=== PATIENT | female | born 2000 | race Caucasian/White ===

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

== ENCOUNTER 2021-08-28 11:57 | Emergency (ER) | payer MEDICAID, SELFPAY ==
[2021-08-28 11:58] VITALS: BP 93/46; PULSE 94; RESP 16; TEMP 36.5; O2SAT 97
--- NOTE | 2021-08-28 12:13 | EX.ED.DYSGE1 ---
HPI History of Present Illness Chief Complaint: General Illness Detail of Chief Complaint: Not feeling well x2 days Informant: patient Narrative Narrative: Patient presents to the emergency department with complaint of not feeling well for the last 2 days. Patient states she has not been able to eat for the last 2 days. Patient states she had one episode of vomiting today and 1 episode of diarrhea. She denies any blood in her stool or black tarry stool. Patient states that her boyfriend is also sick and has a similar illness. She denies any fever or cough or sore throat. Patient is on control and does not think she is . Patient denies abdominal pain. She denies urinary symptoms. Prior similar symptoms: No PFSH [facility] Medical History (Updated 08/28/21 @ 15:[address] Froilan Varner DO) Depression Seizure Home Medications cholecalciferol (vitamin D3) [Vitamin D] 2,000 unit PO DAILY 10/16/14 [History Last Taken Unknown] clobazam [Onfi] 15 mg PO BREAKFAST 10/24/16 [History Last Taken Unknown] lacosamide [Vimpat] 200 mg PO BID 10/24/16 [History Last Taken Unknown] magnesium oxide 250 mg PO BID 10/24/16 [History Last Taken Unknown] folic acid 1 mg PO DAILY 02/28/17 [History Last Taken Unknown] levetiracetam 1,500 mg PO BID 02/28/17 [History Last Taken Unknown] zonisamide 200 mg PO DAILY 02/28/17 [History Last Taken Unknown] clonazepam 0.5 mg PO PRN PRN #5 tab.rapdis 09/01/20 [Rx Last Taken Unknown] clobazam 20 mg PO QHS 08/28/21 [History Last Taken Unknown] ondansetron 4 mg PO Q8H PRN PRN #10 tab 08/28/21 [Rx Last Taken Unknown] pyridoxine (vitamin B6) 250 mg PO DAILY 08/28/21 [History Last Taken Unknown] triamcinolone acetonide [Kenalog] 1 applic TOPICAL BID PRN 08/28/21 [History Last Taken Unknown] zonisamide 300 mg PO QHS 08/28/21 [History Last Taken Unknown] Allergy/AdvReac Type Severity Reaction Status Date / Time divalproex sodium Allergy Other Verified 08/28/21 12:03 [facility] Social History Smoking Status: Never smoker ROS ROS ED Constitutional Constitutional ED: Reports systems reviewed and no addt'l complaints, except as documented; Denies body ache(s), change in weight or chills Eyes Eyes: Denies acute decrease in peripheral vision, change in vision, double vision or loss of vision ENT ENT ED: Reports none; Denies ear pain, lip swelling, loss taste/smell, neck pain, otalgia or sore throat Cardiovascular Cardiovascular: Reports none; Denies abdominal pain, chest pain with activity, leg edema, lightheadedness, palpitations, rapid heart rate or syncope Respiratory/Chest Respiratory/Chest: Reports none; Denies change in mental status, dry cough, dyspnea, hemoptysis, shortness of breath at rest or shortness of breath with exertion Gastrointestinal Gastrointestinal: Reports none, diarrhea, nausea and vomiting; Denies abdominal pain, change in stool character, hematemesis, hematochezia, melena or rectal bleeding Genitourinary Genitourinary ED: Reports none; Denies abdominal discomfort, anuria, dysuria, genital pain or polyuria Musculoskeletal Musculoskeletal: Reports none; Denies arthralgias, back pain, difficulty walking, extremity pain, muscle weakness or myalgias Integumentary Reports none; Denies abscess or rash Neurologic Neurologic: Reports none; Denies abnormal gait, confusion, focal weakness, frequent falls, headache(s), loss of vision, numbness, paresthesias, radicular pain, vertigo or weakness Psychiatric Psychiatric: Reports systems reviewed and no addt'l complaints, except as documented and none; Denies behavioral changes, confusion, difficulty concentrating, hallucinations, suicidal ideation, tactile hallucinations or visual hallucinations Endocrine Endocrinology: Denies none, cold intolerance, excessive sweating, fatigue or heat intolerance Hematologic/Lymphatic Hematologic/Lymphatic: Reports none; Denies anemia, easy bleeding or easy bruising Allergic/Immunologic Allergic/Immunologic ED: Denies as per HPI, none, lip swelling, mouth swelling, throat swelling, tongue swelling or hives EXAM Physical Exam Const Vital Signs: 08/28/21 11:58 08/28/21 12:15 08/28/21 14:23 Temperature 97.7 F L Temperature Source Oral Pulse Rate 94 84 Respiratory Rate 16 16 Respiratory Effort Normal Non-Labored Respiratory Pattern Normal Blood Pressure 93/46 L Blood Pressure Mean 61 Pulse Ox 97 97 Oxygen Delivery Method Room Air Room Air Positive well nourished and well developed General Appearance ED: well developed and NAD HEENT Reports TM's clear and moist mucous membranes normocephalic and atraumatic; Negative for trauma or tenderness Tympanic Membrane ED: Yes TM's clear Eyes PERRL and EOMs intact bilaterally General Eye ED: Negative for pale conjunctiva or scleral icterus Neck no lymphadenopathy, supple and no JVD General: Negative for tenderness Chest Wall inspection of chest normal and palpation of chest normal Chest: Negative for tenderness Resp normal respiratory effort and clear to auscultation bilaterally Effort and Inspection: Negative for respiratory distress or pain with movement Auscultation: Negative for rhonchi, wheezes or diminished lung sounds Cardio regular rate, regular rhythm, S1 normal heart sound, S2 normal heart sound and no murmurs Peripheral Pulses: pulses 2+ throughout GI normal to inspection, nondistended, normoactive bowel sounds, soft to palpation, non-tender, non-distended and no masses Back/Spine no CVA tenderness and no thoracic nor lumbar tenderness Extremity normal to inspection General Extremety ED: Negative for edema General Extremity: Negative for edema Neuro oriented x3, CN's II-XII intact bilaterally, no sensory deficits noted and gait normal Sensorium / Orientation: awake, alert, oriented to person, oriented to place and oriented to time Motor Exam: strength 5/5 throughout and strength abnormal Psych mental status grossly normal Skin no rashes or lesions noted and no wounds MDM MDM MDM Narrative Medical decision making narrative: IV line established on arrival. Patient given a liter of the same fluid bolus. Patient given Zofran 4 mg IV. Lab work-up was unremarkable. Urine frag test was negative. Patient had no further vomiting and was able to tolerate p.o. fluids. Patient still complained of some mild nausea and was given another 4 mg of Zofran. Lab Data Attestation: I reviewed the patient's lab results. Labs: Laboratory Results - last 24 hr 08/28/21 08/28/21 08/28/21 12:22 12:22 12:35 WBC Cancelled Corrected WBC Cancelled RBC Cancelled Hgb Cancelled Hct Cancelled MCV Cancelled MCH Cancelled MCHC Cancelled RDW Std Deviation Cancelled RDW Coeff of Rafiq Cancelled Plt Count Cancelled MPV Cancelled Immature Gran % (Auto) Cancelled Neut % (Auto) Cancelled Lymph % (Auto) Cancelled [place] % (Auto) Cancelled Eos % (Auto) Cancelled Baso % (Auto) Cancelled Absolute Neuts (auto) Cancelled Absolute Lymphs (auto) Cancelled Total Counted Cancelled Neutrophils % (Manual) Cancelled Band Neutrophils % Cancelled Lymphocytes % (Manual) Cancelled Monocytes % (Manual) Cancelled Eosinophils % (Manual) Cancelled Basophils % (Manual) Cancelled Metamyelocytes % Cancelled Myelocytes % Cancelled Promyelocytes % Cancelled Blast Cells % Cancelled Plasma Cell % (Manual) Cancelled Other Cells % Cancelled Nucleated RBC % Cancelled Nucleated RBCs/100 WBC Cancelled Differential Comment Cancelled Diff Path Review Cancelled Hypersegmented Neuts Cancelled Atypical Lymphocytes Cancelled Reactive Lymphocytes Cancelled Smudge Cells Cancelled Toxic Granulation Cancelled Toxic Vacuolation Cancelled Dohle Bodies Cancelled [place]ia Rods Cancelled Platelet Estimate Cancelled Plt Morphology Comment Cancelled RBC Morphology Cancelled Polychromasia Cancelled Hypochromasia Cancelled Poikilocytosis Cancelled Basophilic Stippling Cancelled Anisocytosis Cancelled Microcytosis Cancelled Macrocytosis Cancelled Spherocytes Cancelled Sickle Cells Cancelled Target Cells Cancelled Tear Drop Cells Cancelled Ovalocytes Cancelled Stomatocytes Cancelled [place] Bodies Cancelled [place] Cells Cancelled Bite Cells Cancelled Crenated Cell Cancelled Acanthocytes (Spur) Cancelled Rouleaux Cancelled Schistocytes Cancelled Sodium Potassium Chloride Carbon Dioxide Anion Gap BUN Creatinine Estim Creat Clear Calc Est GFR (MDRD) Af Amer Est GFR (MDRD) Non-Af BUN/Creatinine Ratio Glucose Calcium Total Bilirubin AST ALT Alkaline Phosphatase Total Protein Albumin Globulin Albumin/Globulin Ratio Urine Color Yellow Urine Clarity Sl. Cloudy Urine pH 6.5 Ur Specific [place] 1.015 Urine Protein 15 H Urine Glucose (UA) Normal Urine Ketones Negative Urine Occult Blood Negative Urine Nitrite Negative Urine Bilirubin Negative Urine Urobilinogen Normal Ur Leukocyte Esterase Negative Urine RBC 0 SEEN Urine WBC 0 SEEN Ur Squamous Epith Cells 0-5 SEEN Urine Bacteria 2+ Urine Mucus 1+ Urine Test Negative 08/28/21 08/28/21 12:35 13:15 WBC 8.9 Corrected WBC RBC 4.51 Hgb 13.8 Hct 41.2 MCV 91.4 MCH 30.6 MCHC 33.5 RDW Std Deviation 46.7 H RDW Coeff of Rafiq 13.9 Plt Count 213 MPV 10.6 Immature Gran % (Auto) 0.400 Neut % (Auto) 89.2 H Lymph % (Auto) 3.8 L [place] % (Auto) 6.1 Eos % (Auto) 0.3 Baso % (Auto) 0.2 Absolute Neuts (auto) 7.9 H Absolute Lymphs (auto) 0.34 L Total Counted Neutrophils % (Manual) Band Neutrophils % Lymphocytes % (Manual) Monocytes % (Manual) Eosinophils % (Manual) Basophils % (Manual) Metamyelocytes % Myelocytes % Promyelocytes % Blast Cells % Plasma Cell % (Manual) Other Cells % Nucleated RBC % 0 Nucleated RBCs/100 WBC Differential Comment Diff Path Review Hypersegmented Neuts Atypical Lymphocytes Reactive Lymphocytes Smudge Cells Toxic Granulation Toxic Vacuolation Dohle Bodies Libia Rods Platelet Estimate Plt Morphology Comment RBC Morphology Polychromasia Hypochromasia Poikilocytosis Basophilic Stippling Anisocytosis Microcytosis Macrocytosis Spherocytes Sickle Cells Target Cells Tear Drop Cells Ovalocytes Stomatocytes [place] Bodies Madan Cells Bite Cells Crenated Cell Acanthocytes (Spur) Rouleaux Schistocytes Sodium 141 Potassium 3.8 Chloride 116 H Carbon Dioxide 19.0 L Anion Gap 6 BUN 14 Creatinine 0.97 Estim Creat Clear Calc 77.17 Est GFR (MDRD) Af Amer 95 Est GFR (MDRD) Non-Af 78 BUN/Creatinine Ratio 14.5 Glucose 95 Calcium 8.8 Total Bilirubin 0.30 AST 23 ALT 44 Alkaline Phosphatase 131 H Total Protein 7.1 Albumin 3.6 Globulin 3.5 Albumin/Globulin Ratio 1.0 Urine Color Urine Clarity Urine pH Ur Specific [place] Urine Protein Urine Glucose (UA) Urine Ketones Urine Occult Blood Urine Nitrite Urine Bilirubin Urine Urobilinogen Ur Leukocyte Esterase Urine RBC Urine WBC Ur Squamous Epith Cells Urine Bacteria Urine Mucus Urine Test Discharge Plan Triage Chief Complaint: General Illness ED Provider: Froilan Varner Dx/Rx/DC Orders Clinical Impression: Viral gastroenteritis Instructions: Viral Gastroenteritis Prescriptions: New ondansetron [ondansetron] 4 MG tablet 4 mg PO Q8H PRN PRN (Reason: Nausea) Qty: 10 RF: 0 No Action cholecalciferol (vitamin D3) [Vitamin D3] 1,000 UNIT tablet 2,000 unit PO DAILY RF: 0 magnesium oxide 400 MG tablet 250 mg PO BID RF: 0 lacosamide [Vimpat] 100 MG tablet 200 mg PO BID RF: 0 clobazam [Onfi] 20 MG tablet 15 mg PO BREAKFAST RF: 0 levetiracetam 500 MG tablet 1,500 mg PO BID RF: 0 zonisamide 100 MG capsule 200 mg PO DAILY RF: 0 folic acid 1 MG tablet 1 mg PO DAILY RF: 0 clonazepam 0.25 MG tablet,disintegrating 0.5 mg PO PRN PRN (Reason: Seizure) Qty: 5 RF: 0 triamcinolone acetonide [Kenalog] 0.1 % Cream 1 applic TOPICAL BID PRN (Reason: Itching) RF: 0 zonisamide 100 mg Capsule 300 mg PO QHS RF: 0 pyridoxine (vitamin B6) 250 mg Tablet 250 mg PO DAILY RF: 0 clobazam 20 mg Tablet 20 mg PO QHS RF: 0 Primary Care Provider: Care Physician,No Primary Referrals: Care Physician,No Primary [Primary Care Provider] - Disposition Disposition: Home, Self Care
[2021-08-28 12:27] LABS: Red Blood Cells-Urine 0 SEEN /hpf (0-5); White Blood Cells 0 SEEN /hpf (0-5)
[2021-08-28 12:33] LABS: Color, Urine Yellow (Yellow); Glucose, Dipstick Normal (Normal); Ketone-Dipstick Negative (Negative); Leukocyte Esterase-Dipstick Negative /ul (Negative); Nitrite-Dipstick Negative (Negative); Occult Blood-Urine Negative /ul (Negative); Protein-Dipstick 15 mg/dl (Negative); Specific Gravity, Urine 1.015 (1.002-1.030); Urine Bilirubin Dipstick Negative (Negative); Urine Clarity Sl. Cloudy (Clear); Urine Urobilinogen Normal (Normal); Urine pH 6.5 (5.0 - 8.0)
[2021-08-28] MEDS: 0.9% Normal Saline 1,000 ML 1000 ML IV (12:34)
[2021-08-28] MEDS: Ondansetron 4 MG/2 ML Vial IV ×2 (12:35→15:19)
[2021-08-28 12:49] LABS: Bacteria 2+ /hpf (None Seen); Mucous, Urine 1+ /hpf (<or=2+); Squamous Epithelial Cells - UA 0-5 SEEN /hpf (5-10)
[2021-08-28 12:53] LABS: Internal QC Validated? YES +Cl - CLEAR BKGD; Pregnancy, Urine Negative Negative
[2021-08-28 13:09] LABS: AST(SGOT) 23 U/L (15-37); Alanine Aminotransfer ALT/SGPT 44 U/L (13-56); Albumin, Serum 3.6 g/dL (3.2-5.0); Alkaline Phosphatase 131 U/L (45-117); Anion Gap 6 (5-15); BUN 14 mg/dL (7-18); BUN/Creat Ratio 14.5 RATIO (10-20); Calcium,Total 8.8 mg/dL (8.5-10.1); Chloride 116 mmol/L (98-107); Creatinine, Serum 0.97 mg/dL (0.55-1.02); EST Glomerular Filtration Rate 78 mL/min (>60); Est Glom Filt Rate - Afr Amer 95 mL/min (>60); Estimated Creatinine Clearance 77.17 ml/min; Globulin 3.5 g/dL (2.2-4.2); Glucose 95 mg/dL (74-106); Potassium 3.8 mmol/L (3.5-5.1); Protein, Total 7.1 g/dL (6.4-8.2); Sodium Level 141 mmol/L (136-145)
[2021-08-28 13:25] LABS: Absolute Lymphocyte Count 0.34 X10^3/uL (0.83-4.51); Absolute Neutrophil Count 7.9 X10^3/uL (2.0-7.7); Basophil# 0.02 X10^3/uL; Basophil% 0.2 % (0-1); Eosinophil# 0.03 X10^3/uL; Eosinophils% 0.3 % (0-5); Hematocrit 41.2 % (37-47); Hemoglobin 13.8 g/dL (12.0-15.0); Lymphocyte # 0.34 X10^3/ul (0.83-4.51); Lymphocyte % 3.8 % (19-41); Mean Corp Hgb Conc 33.5 g/dL (32-36); Mean Corpuscular Hgb 30.6 pg (27.0-32.0); Mean Corpuscular Volume 91.4 fL (81-99); Mean Platelet Vol. 10.6 fl (6.2-12.0); Monocyte# 0.54 X10^3/uL; Monocyte% 6.1 % (0-10); NRBC Flagged by Analyzer 0 % (0-5); Neutrophil # 7.92 X10^3/uL (2.7-7.7); Neutrophil % 89.2 % (47-70); POSITIVE DIFFERENTIAL YES; Platelet Count 213 K/mm3 (150-450); RBC Distribution Width CV 13.9 % (11.6-14.6); RBC Distribution Width SD 46.7 fl (35.1-43.9); Red Blood Count 4.51 M/mm3 (4.2-5.4); White Blood Count 8.9 K/mm3 (4.4-11.0)
[2021-08-28 13:29] LABS: Differential Indicated SCAN CRITERIA MET
[2021-08-28 14:23] VITALS: PULSE 84; RESP 16; O2SAT 97
[2021-08-28 15:20] VITALS: BP 120/56; PULSE 68; RESP 16
== END 2021-08-28 15:23 | disposition home or self-care (01) ==
PROVIDERS: Emergency Provider Emergency Medicine; Visit Provider Emergency Medicine
DX: A08.4 Viral intestinal infection, unspecified (principal); G40.909 Epilepsy, unspecified, not intractable, without status epilepticus; F32.A Depression, unspecified; Z79.899 Other long term (current) drug therapy
CPT/HCPCS: 80053; 81001; 81025; 85025; 96361; 96374; 96376; 99285; J7030; A4216; J2405

== ENCOUNTER 2021-10-17 13:05 | Emergency (ER) | payer MEDICAID, SELFPAY ==
[2021-10-17 13:06] VITALS: BP 110/61; PULSE 56; RESP 16; TEMP 36.1; O2SAT 99; BMI 28.3
--- NOTE | 2021-10-17 14:23 | EDS_ITS ---
HPI History of Present Illness Chief Complaint: Nausea/Vomiting Narrative Narrative: 20-year-old female presenting with dizziness. She states it started earlier today. She states she has had nausea and is not vomiting as well. She states at times it is difficult to ambulate. Denies fever, chills. Denies head injury. Denies headache. Patient states that she has a history of epilepsy but does has not had seizures. She is on Vimpat, Keppra, zonisamide, clobazam. Patient has no concern for . Denies any urinary complaints or vaginal complaints. No chest pain or shortness of breath. [facility] Medical History Depression Seizure Home Medications lacosamide [Vimpat] 200 mg PO BID 10/24/16 [History Last Taken Unknown] levetiracetam 1,500 mg PO BID 02/28/17 [History Last Taken Unknown] zonisamide 200 mg PO DAILY 02/28/17 [History Last Taken Unknown] clobazam 20 mg PO BID 08/28/21 [History Last Taken Unknown] zonisamide 300 mg PO QHS 08/28/21 [History Last Taken Unknown] meclizine 25 mg PO DAILY PRN #14 tab 10/17/21 [Rx Last Taken Unknown] promethazine 12.5 mg PO TID PRN #14 tab 10/17/21 [Rx Last Taken Unknown] Allergy/AdvReac Type Severity Reaction Status Date / Time divalproex sodium Allergy Other Verified 10/17/21 13:06 [From [facility]] Social History Smoking Status: Never smoker [facility] ED Constitutional Constitutional ED: Denies chills or fever(s) Eyes Eyes: Reports other Details: Dizziness Cardiovascular Cardiovascular: Denies chest pain or palpitations Respiratory/Chest Respiratory/Chest: Denies cough or dyspnea Gastrointestinal Gastrointestinal: Denies abdominal pain or nausea Genitourinary Genitourinary ED: Denies dysuria or hematuria Musculoskeletal Musculoskeletal: Denies arthralgias, back pain, myalgias or neck pain Integumentary Denies rash Neurologic Neurologic: Denies headache(s) or weakness Psychiatric Psychiatric: Denies anxiety or depression EXAM Physical Exam Const Vital Signs: 10/17/21 13:06 Temperature 96.9 F L Temperature Source Temporal Pulse Rate 56 L Respiratory Rate 16 Blood Pressure 110/61 Blood Pressure Mean 77 Pulse Ox 99 Oxygen Delivery Method Room Air Positive well nourished General Appearance ED: BERE NANCE Narrative: Reproducible vertiginous dizziness and nystagmus with Chaz- Hallpike atraumatic Eyes PERRL and EOMs intact bilaterally Resp normal respiratory effort and clear to auscultation bilaterally Cardio regular rhythm Rate: regular rate GI normal to inspection, nondistended, normoactive bowel sounds Neuro oriented x3, CN's II-XII intact bilaterally, moves all extremities, no focal motor deficits and no sensory deficits noted Sensorium / Orientation: alert Psych mental status grossly normal and thought process normal Skin no rashes or lesions noted and no wounds MDM MDM MDM Narrative Medical decision making narrative: Patient given IM Phenergan and meclizine p.o. Her exam is consistent with vertigo. She states she did eat some raw sushi yesterday and this was her first time however her significant other at the bedside states he ate the same thing and he is not ill at all. Patient given meclizine and Phenergan. She feels improved. I will discharge her home on meclizine and Phenergan. She will follow-up with her PCP to ensure resolution. Impression: 1. Benign positional vertigo Discharge Plan Triage Chief Complaint: Nausea/Vomiting ED Provider: Lul Murguia Dx/Rx/DC Orders Instructions: ED BPV Vertigo Prescriptions: New meclizine 25 mg tablet 25 mg PO DAILY PRN (Reason: nausea) Qty: 14 RF: 0 promethazine 12.5 mg tablet 12.5 mg PO TID PRN (Reason: nausea and vomiting) Qty: 14 RF: 0 No Action lacosamide [Vimpat] 100 MG tablet 200 mg PO BID RF: 0 levetiracetam 500 MG tablet 1,500 mg PO BID RF: 0 zonisamide 100 MG capsule 200 mg PO DAILY RF: 0 zonisamide 100 mg Capsule 300 mg PO QHS RF: 0 clobazam 20 mg Tablet 20 mg PO BID RF: 0 Primary Care Provider: Renée Brantley Referrals: Renée Brantley MD [Primary Care Provider] - Disposition Disposition: Home, Self Care
[2021-10-17] MEDS: proMETHazine 25 MG/ML Syringe 12.5 MG IM (14:24)
[2021-10-17] MEDS: Meclizine HCl 25 MG Tablet PO (14:24)
--- NOTE | 2021-10-17 15:04 | ED.RN ---
PT VOMITTED 1.5 HOURS AFTER TAKING SEIZURE MEDICATION. PER DR. MARTINEZ, PT SHOULD BE OK TO TAKE EVENING DOSES WHEN SHE GETS HOME. PT AND SIGNIFICANT OTHER INFORMED TO CONTINUE HER USUAL MEDICATION SCHEDULE AT HOME.
== END 2021-10-17 15:34 | disposition home or self-care (01) ==
PROVIDERS: Emergency Provider Student in an Organized Health Care Education/Training Program; PCP Pediatrics; Visit Provider Student in an Organized Health Care Education/Training Program
DX: H81.10 Benign paroxysmal vertigo, unspecified ear (principal); G40.909 Epilepsy, unspecified, not intractable, without status epilepticus; Z79.899 Other long term (current) drug therapy
CPT/HCPCS: 96372; 99283

== ENCOUNTER 2021-10-28 10:57 | Emergency (ER) | payer MEDICAID, SELFPAY ==
[2021-10-28 10:58] VITALS: BP 113/74; PULSE 79; RESP 18; TEMP 36.2; O2SAT 96; BMI 29.8
--- NOTE | 2021-10-28 11:08 | ED.RN ---
THIS RN CALLED TO ROOM, PT'S FRIEND STATES SHE'S HAVING ANOTHER SEIZURE, PT MAKES EYE CONTACT WITH THIS RN, PT'S PHONE RANG, PT PICKED UP PHONE AND ANSWERED. THIS RN REASSURED FRIEND INCIDENT WAS NOT A SIGNIFICANT SEIZURE PT WOULD NOT BE ABLE TO ANSWER PHONE CALL DURING SEIZURE.
[2021-10-28] MEDS: LORazepam 2 MG/ML Syringe 0.5 MG IV (11:43)
[2021-10-28] MEDS: 0.9% Normal Saline 1,000 ML 150 ML IV (11:49)
[2021-10-28 12:04] LABS: Absolute Lymphocyte Count 1.41 X10^3/uL (0.83-4.51); Absolute Neutrophil Count 3.3 X10^3/uL (2.0-7.7); Anion Gap 5 (5-15); BUN 10 mg/dL (7-18); BUN/Creat Ratio 12.5 RATIO (10-20); Basophil# 0.03 X10^3/uL; Basophil% 0.6 % (0-1); Calcium,Total 8.8 mg/dL (8.5-10.1); Chloride 115 mmol/L (98-107); EST Glomerular Filtration Rate 97 mL/min (>60); Eosinophil# 0.07 X10^3/uL; Eosinophils% 1.3 % (0-5); Est Glom Filt Rate - Afr Amer 117 mL/min (>60); Estimated Creatinine Clearance 93.56 ml/min; Glucose 88 mg/dL (74-106); Hematocrit 39.9 % (37-47); Hemoglobin 13.2 g/dL (12.0-15.0); Lymphocyte # 1.41 X10^3/ul (0.83-4.51); Lymphocyte % 26.7 % (19-41); Mean Corp Hgb Conc 33.1 g/dL (32-36); Mean Corpuscular Hgb 29.9 pg (27.0-32.0); Mean Corpuscular Volume 90.5 fL (81-99); Mean Platelet Vol. 11.3 fl (6.2-12.0); Monocyte# 0.45 X10^3/uL; Monocyte% 8.5 % (0-10); NRBC Flagged by Analyzer 0 % (0-5); Neutrophil # 3.31 X10^3/uL (2.7-7.7); Neutrophil % 62.7 % (47-70); Platelet Count 199 K/mm3 (150-450); Potassium 4.1 mmol/L (3.5-5.1); RBC Distribution Width CV 13.5 % (11.6-14.6); RBC Distribution Width SD 44.6 fl (35.1-43.9); Red Blood Count 4.41 M/mm3 (4.2-5.4); Sodium Level 141 mmol/L (136-145); White Blood Count 5.3 K/mm3 (4.4-11.0)
[2021-10-28 12:20] VITALS: PULSE 78; RESP 13
--- NOTE | 2021-10-28 12:25 | ED.RN ---
PT FAMILY MEMBER ENTERS FACILITY. DOES NOT WANT TO WEAR A MASK. REMINDED THAT IT IS POLICY. FAMILY MEMBER STORMS OUT. UPON REENTERING FAMILY MEMBER TAKES A MASK AFTER BEING REMINDED THAT IT IS REQUIRED. FAMILY MEMBER (REFERS TO HIMSELF PT FATHER) STORMS THRU DOORS. SECURITY FOLLOWS. FATHER IS ASKED TO LEAVE DEPARTMENT BASED ON THERE ARE ALREADY 2 FAMILY MEMBERS IN THE ROOM. FATHER STORMS OUT OF DEPARTMENT. FATHER STORMS OUT OF DEPARTMENT SCREAMING FUK YOU AND THIS ENTIRE HOSPITAL. PER SECURITY FATHER IS NOT WELCOME IN THE DEPARTMENT AGAIN FOR THIS VISIT
[2021-10-28 12:26] LABS: Internal QC Validated? YES +Cl - CLEAR BKGD; Pregnancy, Serum, hCG Quali. NEGATIVE Negative
--- NOTE | 2021-10-28 13:23 | EX.ED.DYSGE1 ---
HPI History of Present Illness Chief Complaint: Seizure Informant: patient and family Narrative Narrative: Patient brought in by family secondary to repeated seizures. She is a history of seizure disorder. She is currently on Vimpat, Keppra, zonisamide, clobazam. Family reports repeated seizures over the past couple hours. Nursing triage states that she had a shaking episode while she was standing. She did not drop her water or fall. There was a family member at the desk yelling that she was seizing and needed to be seen immediately. When I entered the room patient was not seizing, was alert and looking about the room. She was able to speak with me. Mother arrives at a later time and states that when she checked the patient's medication it appears she has missed 2 doses of her meds over the past couple days. [facility] Medical History Depression Seizure Home Medications lacosamide [Vimpat] 200 mg PO BID 10/24/16 [History Last Taken Unknown] levetiracetam 1,500 mg PO BID 02/28/17 [History Last Taken Unknown] zonisamide 200 mg PO DAILY 02/28/17 [History Last Taken Unknown] clobazam 20 mg PO BID 08/28/21 [History Last Taken Unknown] zonisamide 300 mg PO QHS 08/28/21 [History Last Taken Unknown] clonazepam 0.5 mg PO DAILY PRN 10/28/21 [History Last Taken Unknown] Allergy/AdvReac Type Severity Reaction Status Date / Time divalproex sodium Allergy Other Verified 10/28/21 11:01 [From [facility]] Social History Smoking Status: Never smoker ROS ROS ED Constitutional Constitutional ED: Denies chills or fever(s) Eyes Eyes: Denies change in vision ENT ENT ED: Denies sore throat Cardiovascular Cardiovascular: Denies chest pain Respiratory/Chest Respiratory/Chest: Denies cough or dyspnea Gastrointestinal Gastrointestinal: Denies abdominal pain, nausea or vomiting Genitourinary Genitourinary ED: Denies dysuria Musculoskeletal Musculoskeletal: Denies back pain or neck pain Integumentary Denies rash Neurologic Neurologic: Denies headache(s) Allergic/Immunologic Allergic/Immunologic ED: Denies urticaria EXAM Physical Exam Const Vital Signs: 10/28/21 10:58 10/28/21 12:20 Temperature 97.1 F L Temperature Source Temporal Pulse Rate 79 78 Respiratory Rate 18 13 Blood Pressure 113/74 Blood Pressure Mean 87 Pulse Ox 96 Oxygen Delivery Method Room Air Positive well nourished and well developed General Appearance ED: well developed HEENT Reports moist mucous membranes HEENT Narrative: No tongue injury Eyes PERRL and EOMs intact bilaterally Neck supple Chest Wall inspection of chest normal and palpation of chest normal Resp normal respiratory effort and clear to auscultation bilaterally Cardio regular rate and regular rhythm GI non-tender Palpation: soft Extremity normal to inspection Neuro oriented x3 Neuro Narrative: No focal neurologic deficits. Sensorium / Orientation: alert Skin no rashes or lesions noted MDM MDM MDM Narrative Medical decision making narrative: Patient was given 0.5 mg of IV Ativan. Lab work obtained. Lab Data Attestation: I reviewed the patient's lab results. Labs: Laboratory Results - last 24 hr 10/28/21 10/28/21 10/28/21 11:40 11:40 11:40 WBC 5.3 RBC 4.41 Hgb 13.2 Hct 39.9 MCV 90.5 MCH 29.9 MCHC 33.1 RDW Std Deviation 44.6 H RDW Coeff of Rafiq 13.5 Plt Count 199 MPV 11.3 Immature Gran % (Auto) 0.200 Neut % (Auto) 62.7 Lymph % (Auto) 26.7 [place] % (Auto) 8.5 Eos % (Auto) 1.3 Baso % (Auto) 0.6 Absolute Neuts (auto) 3.3 Absolute Lymphs (auto) 1.41 Nucleated RBC % 0 Sodium 141 Potassium 4.1 Chloride 115 H Carbon Dioxide 21.0 Anion Gap 5 BUN 10 Creatinine 0.80 Estim Creat Clear Calc 93.56 Est GFR (MDRD) Af Amer 117 Est GFR (MDRD) Non-Af 97 BUN/Creatinine Ratio 12.5 Glucose 88 Calcium 8.8 Serum , Qual NEGATIVE Treatment and Re-Evaluation Narrative: Family member at bedside states he is only had 1 additional episode since receiving Ativan. This time she is alert and speaking without difficulty. She will be given dose of Vimpat and Keppra here. I do not have zonisamide or clobazam available. Patient is to restart her medications as previously prescribed. Discharge Plan Triage Chief Complaint: Seizure ED Provider: Miranda Randall Dx/Rx/DC Orders Clinical Impression: Seizure Instructions: ED Seizure, Recurrent (Adult) Prescriptions: No Action lacosamide [Vimpat] 100 MG tablet 200 mg PO BID RF: 0 levetiracetam 500 MG tablet 1,500 mg PO BID RF: 0 zonisamide 100 MG capsule 200 mg PO DAILY RF: 0 zonisamide 100 mg Capsule 300 mg PO QHS RF: 0 clobazam 20 mg Tablet 20 mg PO BID RF: 0 clonazepam 0.5 mg tablet 0.5 mg PO DAILY PRN (Reason: Seizure Activity) RF: 0 Primary Care Provider: Renée Brantley Referrals: Renée Brantley MD [Primary Care Provider] - Activity Restrictions/Additional Instructions: Please follow-up with your neurologist. You were given doses of Vimpat and Keppra in the emergency room. Please take your zonisamide and clobazam when you get home. Disposition Disposition: Home, Self Care
[2021-10-28] MEDS: levETIRAcetam IV 1,000 MG/100 ML BAG 400 MG IV (13:30)
[2021-10-28] MEDS: Lacosamide 100 MG Tablet 200 MG PO (13:45)
== END 2021-10-28 13:49 | disposition home or self-care (01) ==
PROVIDERS: Emergency Provider Emergency Medicine; PCP Pediatrics; Visit Provider Emergency Medicine
DX: G40.909 Epilepsy, unspecified, not intractable, without status epilepticus (principal); Z79.899 Other long term (current) drug therapy; F32.A Depression, unspecified
CPT/HCPCS: 80048; 84703; 85025; 96361; 96365; 96375; 99285; J7030; A4216

== ENCOUNTER 2021-11-23 00:47 | Emergency (ER) | payer MEDICAID, SELFPAY ==
[2021-11-23 00:47] VITALS: BP 132/86; PULSE 72; RESP 16; TEMP 36; O2SAT 96; BMI 30.8
--- NOTE | 2021-11-23 03:49 | EDS_ITS ---
HPI History of Present Illness Chief Complaint: Overdose Narrative Narrative: Patient is a 21-year-old female with past medical history of seizure disorder. She is on multiple medications to help control these. She states she has her pills out into a daily canister. She states she took her morning meds and then took her evening meds as directed. She reports that she forgot that she had taken them already and therefore took an other dose inadvertently. She states she did this around 1040 this evening. Patient denies any homicidal or suicidal ideation. She reports feeling dizzy/lightheaded with nausea and fatigue. Mother was concerned about toxic ingestion and therefore the patient was brought in for evaluation [facility] Medical History Depression Seizure Home Medications lacosamide 100 mg tablet (Vimpat) 200 mg PO BID 10/24/16 [History Last Taken Unknown] levetiracetam 500 mg tablet 1,500 mg PO BID 02/28/17 [History Last Taken Unknown] zonisamide 100 mg capsule 200 mg PO DAILY 02/28/17 [History Last Taken Unknown] clobazam 20 mg tablet 20 mg PO BID 08/28/21 [History Last Taken Unknown] zonisamide 100 mg capsule 300 mg PO QHS 08/28/21 [History Last Taken Unknown] clonazepam 0.5 mg tablet 0.5 mg PO DAILY PRN Seizure Activity 10/28/21 [History Last Taken Unknown] Allergy/AdvReac Type Severity Reaction Status Date / Time divalproex sodium Allergy Other Verified 10/28/21 11:01 [From [facility]] Social History Smoking Status: Never smoker ROS ROS ED Constitutional Constitutional ED: Denies chills or fever(s) Eyes Eyes: Reports blurry vision ENT ENT ED: Denies sore throat Cardiovascular Cardiovascular: Denies chest pain Respiratory/Chest Respiratory/Chest: Denies cough or dyspnea Gastrointestinal Gastrointestinal: Reports nausea; Denies abdominal pain, diarrhea or vomiting Genitourinary Genitourinary ED: Denies dysuria Musculoskeletal Musculoskeletal: Denies myalgias Integumentary Denies rash Neurologic Neurologic: Reports weakness; Denies headache(s) Psychiatric Psychiatric: Denies suicidal ideation or suicidal thoughts Hematologic/Lymphatic Hematologic/Lymphatic: Denies easy bleeding or easy bruising EXAM Physical Exam Const Vital Signs: 11/23/21 00:47 Temperature 96.8 F L Temperature Source Temporal Pulse Rate 72 Respiratory Rate 16 Blood Pressure 132/86 H Blood Pressure Mean 101 Pulse Ox 96 Oxygen Delivery Method Room Air Positive well nourished and well developed General Appearance ED: well developed HEENT Reports moist mucous membranes Eyes PERRL and EOMs intact bilaterally Neck supple Resp normal respiratory effort and clear to auscultation bilaterally Cardio regular rate and regular rhythm GI non-tender and non-distended Auscultation: normoactive bowel sounds Palpation: soft Extremity normal to inspection Neuro oriented x3 and CN's II-XII intact bilaterally Sensorium / Orientation: alert Psych mental status grossly normal Skin no rashes or lesions noted MDM MDM MDM Narrative Medical decision making narrative: Patient presented to the ER with stable vitals and a nonfocal exam. She had inadvertently taken double her medication. All of these meds cause similar side effects as dizziness ataxia and nausea and fatigue. The case was discussed with poison control who recommends observation for the next 2 hours or so. They feel that her vitals remained stable and symptoms are improving she should be safe for discharge. Patient was watched until approximately 4 AM. She was able to walk with a steady gait and she required no intervention. Therefore as this was not a suicidal attempt and merely an accidental overdose and her symptoms are improving with time she is safe for discharge Discharge Plan Triage Chief Complaint: Overdose ED Provider: Reji Tyson Dx/Rx/DC Orders Clinical Impression: Accidental overdose Instructions: ED Accidental Ingestion ... Prescriptions: No Action lacosamide [Vimpat] 100 MG tablet 200 mg PO BID levetiracetam 500 MG tablet 1,500 mg PO BID zonisamide 100 MG capsule 200 mg PO DAILY zonisamide 100 mg Capsule 300 mg PO QHS clobazam 20 mg Tablet 20 mg PO BID clonazepam 0.5 mg tablet 0.5 mg PO DAILY PRN (Reason: Seizure Activity) Label Comments: TAKE 1 TABLET BY MOUTH NEEDED FOR UP TO 10 DOSES. Primary Care Provider: Renée Brantley Referrals: Renée Brantley MD [Primary Care Provider] - Activity Restrictions/Additional Instructions: Please do not take your morning medication and call your doctor to discuss how he wants you to take your medication going forward. Please return to the ER should you have any further concerns Disposition Disposition: Home, Self Care Discharge Date/Time: 11/23/21 03:53
== END 2021-11-23 03:53 | disposition home or self-care (01) ==
PROVIDERS: Emergency Provider Emergency Medicine; PCP Pediatrics; Visit Provider Emergency Medicine
DX: T50.901A Poisoning by unspecified drugs, medicaments and biological substances, accidental (unintentional), initial encounter (principal); F32.A Depression, unspecified; Z79.899 Other long term (current) drug therapy
CPT/HCPCS: 99282

== ENCOUNTER 2022-04-13 16:55 | Emergency (ER) | payer MEDICAID, SELFPAY ==
[2022-04-13 16:56] VITALS: PULSE 101; RESP 18; TEMP 36.6; O2SAT 99; BMI 30.1
[2022-04-13 17:50] LABS: Mucous, Urine 0 SEEN /hpf (<or=2+)
[2022-04-13 17:52] LABS: Absolute Lymphocyte Count 1.61 X10^3/uL (0.83-4.51); Absolute Neutrophil Count 5.5 X10^3/uL (2.0-7.7); Basophil# 0.03 X10^3/uL; Basophil% 0.4 % (0-1); Eosinophil# 0.05 X10^3/uL; Eosinophils% 0.7 % (0-5); Hematocrit 38.1 % (37-47); Hemoglobin 12.7 g/dL (12.0-15.0); Lymphocyte # 1.61 X10^3/ul (0.83-4.51); Lymphocyte % 21.2 % (19-41); Mean Corp Hgb Conc 33.3 g/dL (32-36); Mean Corpuscular Hgb 29.5 pg (27.0-32.0); Mean Corpuscular Volume 88.6 fL (81-99); Mean Platelet Vol. 10.5 fl (6.2-12.0); Monocyte# 0.38 X10^3/uL; NRBC Flagged by Analyzer 0 % (0-5); Neutrophil # 5.49 X10^3/uL (2.7-7.7); Neutrophil % 72.2 % (47-70); Platelet Count 226 K/mm3 (150-450); RBC Distribution Width CV 13.1 % (11.6-14.6); RBC Distribution Width SD 42.2 fl (35.1-43.9); White Blood Count 7.6 K/mm3 (4.4-11.0)
[2022-04-13 17:53] LABS: Color, Urine Yellow (Yellow); Glucose, Dipstick Normal (Normal); Ketone-Dipstick Negative (Negative); Leukocyte Esterase-Dipstick 100 /ul (Negative); Nitrite-Dipstick Negative (Negative); Occult Blood-Urine 250 /ul (Negative); Protein-Dipstick 30 mg/dl (Negative); Urine Bilirubin Dipstick Negative (Negative); Urine Clarity Sl. Cloudy (Clear); Urine Urobilinogen Normal (Normal)
[2022-04-13 17:59] LABS: Red Blood Cells-Urine 10-25 SEEN /hpf (0-5); Squamous Epithelial Cells - UA 0-5 SEEN /hpf (5-10); White Blood Cells 5-10 SEEN /hpf (0-5)
[2022-04-13 18:00] LABS: Bacteria 1+ /hpf (None Seen)
[2022-04-13 18:01] LABS: Transitional Epithelial - Ur 0-5 SEEN /hpf (0-5)
--- NOTE | 2022-04-13 18:58 | ED.VIS.FEGU ---
HPI HPI - Female History of Present Illness Chief Complaint: Vag Bld, Preg Informant: patient and parent Pain Pain: Positive for Pelvic Pain Onset: Today Context: Sudden Onset Timing: Continuous Quality: Positive for Cramping Location: Suprapubic Worsened by: - (Nothing) Relieved by: - (Nothing) Bleeding Issue: Positive for Vaginal bleeding Onset: Today Context: Sudden Onset Current Severity: Spotting Maximum Severity: Spotting Associated Symptoms Test: Positive Narrative Narrative: Patient presents with vaginal bleeding that began approximately 30 minutes prior to arrival. Patient states she is approximately 13 weeks . Patient noted blood when she wipes. Patient denies any blood in the toilet. Patient denies passing any tissue or clots. Patient admits to mild headache. Patient also admits to some low back pain and lower abdominal pain. Patient describes her pain as cramping. Patient admits to nausea but denies any vomiting. Patient states nothing makes her symptoms worse and nothing makes them better. PFSH PFS Medical History Depression Seizure Home Medications lacosamide 100 mg tablet (Vimpat) 200 mg PO BID 10/24/16 [History Last Taken Unknown] levetiracetam 500 mg tablet 1,500 mg PO BID 02/28/17 [History Last Taken Unknown] zonisamide 100 mg capsule 200 mg PO DAILY 02/28/17 [History Last Taken Unknown] clobazam 20 mg tablet 20 mg PO BID 08/28/21 [History Last Taken Unknown] zonisamide 100 mg capsule 300 mg PO QHS 08/28/21 [History Last Taken Unknown] clonazepam 0.5 mg tablet 0.5 mg PO DAILY PRN Seizure Activity 10/28/21 [History Last Taken Unknown] Allergy/AdvReac Type Severity Reaction Status Date / Time divalproex sodium Allergy Other Verified 04/13/22 16:55 [From [facility]] Social History Smoking Status: Never smoker ROS ROS ED Constitutional Constitutional ED: Denies chills or fever(s) Eyes Eyes: Denies blurry vision or change in vision ENT ENT ED: Reports sore throat; Denies rhinorrhea Cardiovascular Cardiovascular: Denies chest pain or palpitations Respiratory/Chest Respiratory/Chest: Denies cough or dyspnea Gastrointestinal Gastrointestinal: Reports nausea; Denies vomiting Genitourinary Genitourinary ED: Denies dysuria or hematuria Musculoskeletal Musculoskeletal: Reports back pain; Denies neck pain Integumentary Denies abscess or rash Neurologic Neurologic: Reports headache(s); Denies weakness Allergic/Immunologic Allergic/Immunologic ED: Denies mouth swelling or urticaria EXAM Physical Exam Const Vital Signs: 04/13/22 16:56 Temperature 97.8 F Temperature Source Temporal Pulse Rate 101 H Respiratory Rate 18 Pulse Ox 99 Positive well nourished and well developed General Appearance ED: well developed HEENT Reports moist mucous membranes Neck supple and no JVD Resp normal respiratory effort and clear to auscultation bilaterally Cardio regular rate, regular rhythm and no murmurs GI normal to inspection, nondistended, normoactive bowel sounds Palpation: soft and tender suprapubic; Negative for guarding Extremity normal to inspection General Extremety ED: Negative for edema or tenderness General Extremity: Negative for edema Neuro oriented x3, CN's II-XII intact bilaterally and no sensory deficits noted Sensorium / Orientation: alert Motor Exam: strength 5/5 throughout Psych mental status grossly normal Skin no rashes or lesions noted MDM MDM MDM Narrative Medical decision making narrative: CBC was within normal limits. Quantitative hCG was 33,453. Blood type is a positive. Urinalysis shows leukocyte esterases of 100 with 5-10 white blood cells and 1+ bacteria. There were 10-25 red blood cells. Occult blood was 250. Urine culture was ordered. [id number] ultrasound was obtained. There is good cardiac activity. There is a single live intrauterine . Patient was advised of her findings. Patient was instructed to follow-up with her WORKFORCE PLANNING ANALYST in 3 to 5 days. Patient was instructed to avoid any tampons, douching, or intercourse. Patient was instructed to return if worse in any way. Patient understood and was agreeable with the plan. All questions were answered. Lab Data Attestation: I reviewed the patient's lab results. Labs: Laboratory Results - last 24 hr 04/13/22 04/13/22 04/13/22 17:41 17:41 17:41 WBC 7.6 RBC 4.30 Hgb 12.7 Hct 38.1 MCV 88.6 MCH 29.5 MCHC 33.3 RDW Std Deviation 42.2 RDW Coeff of Rafiq 13.1 Plt Count 226 MPV 10.5 Immature Gran % (Auto) 0.500 Neut % (Auto) 72.2 H Lymph % (Auto) 21.2 [place] % (Auto) 5.0 Eos % (Auto) 0.7 Baso % (Auto) 0.4 Absolute Neuts (auto) 5.5 Absolute Lymphs (auto) 1.61 Nucleated RBC % 0 HCG, Quant 86801 H Urine Color Urine Clarity Urine pH Ur Specific [place] Urine Protein Urine Glucose (UA) Urine Ketones Urine Occult Blood Urine Nitrite Urine Bilirubin Urine Urobilinogen Ur Leukocyte Esterase Urine RBC Urine WBC Ur Squamous Epith Cells Ur Transition Epith Cell Urine Bacteria Urine Mucus Blood Type A POSITIVE 04/13/22 17:41 WBC RBC Hgb Hct MCV MCH MCHC RDW Std Deviation RDW Coeff of Rafiq Plt Count MPV Immature Gran % (Auto) Neut % (Auto) Lymph % (Auto) [place] % (Auto) Eos % (Auto) Baso % (Auto) Absolute Neuts (auto) Absolute Lymphs (auto) Nucleated RBC % HCG, Quant Urine Color Yellow Urine Clarity Sl. Cloudy Urine pH 5.[address] [place] 1.020 Urine Protein 30 H Urine Glucose (UA) Normal Urine Ketones Negative Urine Occult Blood 250 H Urine Nitrite Negative Urine Bilirubin Negative Urine Urobilinogen Normal Ur Leukocyte Esterase 100 H Urine RBC 10-25 SEEN Urine WBC 5-10 SEEN Ur Squamous Epith Cells 0-5 SEEN Ur Transition Epith Cell 0-5 SEEN Urine Bacteria 1+ Urine Mucus 0 SEEN Blood Type Discharge Plan Triage Chief Complaint: Vag Bld, Preg ED Provider: Daniel Reza Dx/Rx/DC Orders Clinical Impression: Threatened miscarriage, Instructions: ED Possible Miscarriage ... Prescriptions: No Action lacosamide [Vimpat] 100 MG tablet 200 mg PO BID levetiracetam 500 MG tablet 1,500 mg PO BID zonisamide 100 MG capsule 200 mg PO DAILY zonisamide 100 mg Capsule 300 mg PO QHS clobazam 20 mg Tablet 20 mg PO BID clonazepam 0.5 mg tablet 0.5 mg PO DAILY PRN (Reason: Seizure Activity) Label Comments: TAKE 1 TABLET BY MOUTH NEEDED FOR UP TO 10 DOSES. Primary Care Provider: Renée Brantley Referrals: Renée Brantley MD [Primary Care Provider] - Evie Crane DO [Med Staff - Active Staff] - 3-5 Days Disposition Disposition: Home, Self Care
[2022-04-13 19:39] VITALS: PULSE 78; RESP 18; O2SAT 100
== END 2022-04-13 19:39 | disposition home or self-care (01) ==
PROVIDERS: Emergency Provider Emergency Medicine; PCP Pediatrics; Visit Provider Emergency Medicine
DX: O20.0 Threatened abortion (principal); O26.891 Other specified pregnancy related conditions, first trimester; O99.891 Other specified diseases and conditions complicating pregnancy; R11.0 Nausea; R51.9 Headache, unspecified; R10.2 Pelvic and perineal pain; R10.9 Unspecified abdominal pain; Z3A.13 13 weeks gestation of pregnancy
CPT/HCPCS: 81001; 84702; 85025; 86900; 86901; 99283; A4216

== ENCOUNTER 2022-08-24 05:21 | Outpatient (CLI) | payer MEDICAID, SELFPAY ==
[2022-08-24] VITALS (7 sets, daily range): BP systolic 105–143; BP diastolic 59–92; PULSE 71–100; RESP 16; TEMP 36.2–36.4; O2SAT 98; BMI 37.8
--- NOTE | 2022-08-24 05:39 | EX.ED.DYSGE1 ---
HPI History of Present Illness Chief Complaint: Seizure Informant: patient Onset/Context/Timing Onset: Today Context: Sudden Onset Timing: Lasts (2 to 3 minutes) Quality: Tonic-clonic Location: Generalized Worsened by: Nothing Relieved by: Nothing Narrative Narrative: Patient presents with a seizure that occurred today. Patient states she was on the toilet when she had a seizure. Mother states that the seizure lasted approximately 2 to 3 minutes. Mother states it was generalized tonic-clonic seizure. Mother states patient has a history of seizure disorder. Mother states she follows with [facility] neurology for her seizures. Mother states that patient was scheduled to have levels drawn of her antiepileptic medications but has not done so yet. Patient states she is approximately 32 weeks . Patient denies any abnormal vaginal bleeding or discharge. Patient denies any cramping or pelvic pain. [facility] Medical History Depression Seizure Home Medications lacosamide 100 mg tablet (Vimpat) 200 mg PO BID 10/24/16 [History Last Taken Unknown] levetiracetam 500 mg tablet 1,575 mg PO BID 02/28/17 [History Last Taken Unknown] zonisamide 100 mg capsule (Zonegran) 200 mg PO DAILY 02/28/17 [History Last Taken Unknown] clobazam 20 mg tablet (Onfi) 20 mg PO BID 08/28/21 [History Last Taken Unknown] zonisamide 100 mg capsule 300 mg PO QHS 08/28/21 [History Last Taken Unknown] clonazepam 0.5 mg tablet 0.5 mg PO DAILY PRN Seizure Activity 10/28/21 [History Last Taken Unknown] Allergy/AdvReac Type Severity Reaction Status Date / Time divalproex sodium Allergy Other Verified 08/24/22 05:25 [facility] Surgical History no surgical history no surgical history Social History Smoking Status: Never smoker ROS ROS ED Constitutional Constitutional ED: Denies chills or fever(s) Eyes Eyes: Denies blurry vision or change in vision ENT ENT ED: Denies rhinorrhea or sore throat Cardiovascular Cardiovascular: Reports chest pain; Denies palpitations Respiratory/Chest Respiratory/Chest: Reports cough and dyspnea Gastrointestinal Gastrointestinal: Denies nausea or vomiting Genitourinary Genitourinary ED: Denies dysuria or hematuria Musculoskeletal Musculoskeletal: Reports back pain; Denies neck pain Integumentary Denies abscess or rash Neurologic Neurologic: Denies headache(s) or weakness Allergic/Immunologic Allergic/Immunologic ED: Denies mouth swelling or urticaria EXAM Physical Exam Const Vital Signs: 08/24/22 05:22 08/24/22 05:29 Temperature 97.6 F L Temperature Source Temporal Pulse Rate 92 Respiratory Rate 16 Blood Pressure 128/92 H Blood Pressure Mean 104 Pulse Ox 98 98 Oxygen Delivery Method Room Air Room Air Positive well nourished and well developed General Appearance ED: well developed and NAD HEENT Reports moist mucous membranes Neck supple and no JVD Resp normal respiratory effort and clear to auscultation bilaterally Cardio regular rate, regular rhythm and no murmurs GI normal to inspection, nondistended, normoactive bowel sounds and non-tender Palpation: soft Extremity normal to inspection General Extremety ED: Negative for edema or tenderness General Extremity: Negative for edema Neuro oriented x3, CN's II-XII intact bilaterally and no sensory deficits noted Sensorium / Orientation: alert Motor Exam: strength 5/5 throughout Psych mental status grossly normal Skin no rashes or lesions noted MDM MDM MDM Narrative Medical decision making narrative: Differential diagnosis includes breakthrough seizure, electrolyte abnormality, and urinary tract infection. CBC will be obtained to assess for leukocytosis and anemia. Comprehensive metabolic profile will be obtained to assess for electrolyte abnormality, hepatic function, and renal function. Urinalysis will be obtained to assess for urinary tract infection and hematuria. Lab Data Attestation: I reviewed the patient's lab results. Lab results narrative: CBC was reviewed. There is a mild anemia with a hemoglobin of 11.7. White blood cell count was also 11.7. Platelet count was normal. Comprehensive metabolic profile was reviewed. There is a mild hypokalemia of 3.3. The remaining electrolytes were within normal limits. Liver function tests were within normal limits. Urinalysis was reviewed. There is no evidence of urinary tract infection or hematuria. Labs: Laboratory Results - last 24 hr 08/24/22 08/24/22 08/24/22 06:00 06:00 06:40 WBC Cancelled Corrected WBC Cancelled RBC Cancelled Hgb Cancelled Hct Cancelled MCV Cancelled MCH Cancelled MCHC Cancelled RDW Std Deviation Cancelled RDW Coeff of Rafiq Cancelled Plt Count Cancelled MPV Cancelled Immature Gran % (Auto) Cancelled Neut % (Auto) Cancelled Lymph % (Auto) Cancelled [place] % (Auto) Cancelled Eos % (Auto) Cancelled Baso % (Auto) Cancelled Absolute Neuts (auto) Cancelled Absolute Lymphs (auto) Cancelled Total Counted Cancelled Neutrophils % (Manual) Cancelled Band Neutrophils % Cancelled Lymphocytes % (Manual) Cancelled Monocytes % (Manual) Cancelled Eosinophils % (Manual) Cancelled Basophils % (Manual) Cancelled Metamyelocytes % Cancelled Myelocytes % Cancelled Promyelocytes % Cancelled Blast Cells % Cancelled Plasma Cell % (Manual) Cancelled Other Cells % Cancelled Nucleated RBC % Cancelled Nucleated RBCs/100 WBC Cancelled Differential Comment Cancelled Diff Path Review Cancelled Hypersegmented Neuts Cancelled Atypical Lymphocytes Cancelled Reactive Lymphocytes Cancelled Smudge Cells Cancelled Toxic Granulation Cancelled Toxic Vacuolation Cancelled Dohle Bodies Cancelled [place] Rods Cancelled Platelet Estimate Cancelled Plt Morphology Comment Cancelled RBC Morphology Cancelled Polychromasia Cancelled Hypochromasia Cancelled Poikilocytosis Cancelled Basophilic Stippling Cancelled Anisocytosis Cancelled Microcytosis Cancelled Macrocytosis Cancelled Spherocytes Cancelled Sickle Cells Cancelled Target Cells Cancelled Tear Drop Cells Cancelled Ovalocytes Cancelled Stomatocytes Cancelled [place] Bodies Cancelled Madan Cells Cancelled Bite Cells Cancelled Crenated Cell Cancelled Acanthocytes (Spur) Cancelled Rouleaux Cancelled Schistocytes Cancelled Sodium Cancelled Potassium Cancelled Chloride Cancelled Carbon Dioxide Cancelled Anion Gap Cancelled BUN Cancelled Creatinine Cancelled Estim Creat Clear Calc Cancelled Est GFR (MDRD) Af Amer Cancelled Est GFR (MDRD) Non-Af Cancelled BUN/Creatinine Ratio Cancelled Glucose Cancelled Calcium Cancelled Total Bilirubin Cancelled AST Cancelled ALT Cancelled Alkaline Phosphatase Cancelled Total Protein Cancelled Albumin Cancelled Globulin Cancelled Albumin/Globulin Ratio Cancelled Urine Color Yellow Urine Clarity Clear Urine pH 7.0 Ur Specific [place] 1.010 Urine Protein 15 H Urine Glucose (UA) Normal Urine Ketones Negative Urine Occult Blood 50 H Urine Nitrite Negative Urine Bilirubin Negative Urine Urobilinogen Normal Ur Leukocyte Esterase 25 H Urine RBC 0 SEEN Urine WBC 0-5 SEEN Ur Squamous Epith Cells 0-5 SEEN Urine Bacteria 2+ Urine Mucus 0 SEEN 03/25/23 03/25/23 06:45 06:45 WBC 11.7 H Corrected WBC RBC 4.11 L Hgb 11.7 L Hct 37.2 MCV 90.5 MCH 28.5 MCHC 31.5 L RDW Std Deviation 57.5 H RDW Coeff of Rafiq 17.4 H Plt Count 253 MPV 10.7 Immature Gran % (Auto) 2.300 H Neut % (Auto) 69.7 Lymph % (Auto) 18.4 L [place] % (Auto) 6.1 Eos % (Auto) 3.0 Baso % (Auto) 0.5 Absolute Neuts (auto) 8.1 H Absolute Lymphs (auto) 2.15 Total Counted Neutrophils % (Manual) Band Neutrophils % Lymphocytes % (Manual) Monocytes % (Manual) Eosinophils % (Manual) Basophils % (Manual) Metamyelocytes % Myelocytes % Promyelocytes % Blast Cells % Plasma Cell % (Manual) Other Cells % Nucleated RBC % 0 Nucleated RBCs/100 WBC Differential Comment Diff Path Review Hypersegmented Neuts Atypical Lymphocytes Reactive Lymphocytes Smudge Cells Toxic Granulation Toxic Vacuolation Dohle Bodies [place] Rods Platelet Estimate Plt Morphology Comment RBC Morphology Polychromasia Hypochromasia Poikilocytosis Basophilic Stippling Anisocytosis Microcytosis Macrocytosis Spherocytes Sickle Cells Target Cells Tear Drop Cells Ovalocytes Stomatocytes [place] Bodies [place] Cells Bite Cells Crenated Cell Acanthocytes (Spur) Rouleaux Schistocytes Sodium 139 Potassium 3.3 L Chloride 110 H Carbon Dioxide 22.0 Anion Gap 7 BUN 7 Creatinine 0.72 Estim Creat Clear Calc 103.10 Est GFR (MDRD) Af Amer 132 Est GFR (MDRD) Non-Af 109 BUN/Creatinine Ratio 9.8 L Glucose 132 H Calcium 9.0 Total Bilirubin < 0.10 L AST 10 L ALT 16 Alkaline Phosphatase 118 H Total Protein 6.0 L Albumin 2.3 L Globulin 3.7 Albumin/Globulin Ratio 0.6 L Urine Color Urine Clarity Urine pH Ur Specific [place] Urine Protein Urine Glucose (UA) Urine Ketones Urine Occult Blood Urine Nitrite Urine Bilirubin Urine Urobilinogen Ur Leukocyte Esterase Urine RBC Urine WBC Ur Squamous Epith Cells Urine Bacteria Urine Mucus Treatment and Re-Evaluation :: Seizure precautions were maintained. Patient had no further seizure activity here in the emergency department. Patient is not on any antiepileptics take are amenable to laboratory levels. Case was discussed with Dr. Mcdaniel from [facility] [employer] UP WORKER. She will have the patient go to labor and delivery for monitoring. Patient was advised of this. Patient will be instructed to go directly to OB triage. Patient understands and is agreeable with the plan. All questions were answered. Discharge Plan Triage Chief Complaint: Seizure ED Provider: Daniel Reza Dx/Rx/DC Orders Clinical Impression: Breakthrough seizure, Seizure disorder, Instructions: ED Seizure, Recurrent (Adult), ED Established ... Prescriptions: No Action lacosamide [Vimpat] 100 MG tablet 200 mg PO BID levetiracetam 500 MG tablet 1,575 mg PO BID zonisamide [Zonegran] 100 MG capsule 200 mg PO DAILY zonisamide 100 mg Capsule 300 mg PO QHS clobazam [Onfi] 20 mg Tablet 20 mg PO BID clonazepam 0.5 mg tablet 0.5 mg PO DAILY PRN (Reason: Seizure Activity) Label Comments: TAKE 1 TABLET BY MOUTH NEEDED FOR UP TO 10 DOSES. Primary Care Provider: Renée Brantley Referrals: Karthikeyan Mcdaniel MD [Med Staff - Active Staff] - As soon as possible Renée Brantley MD [Primary Care Provider] - 5-7 Days Activity Restrictions/Additional Instructions: Go to the OB triage area so that they can do monitoring. Disposition Disposition: Home, Self Care
[2022-08-24 06:49] LABS: Color, Urine Yellow (Yellow); Glucose, Dipstick Normal (Normal); Ketone-Dipstick Negative (Negative); Leukocyte Esterase-Dipstick 25 /ul (Negative); Mucous, Urine 0 SEEN /hpf (<or=2+); Nitrite-Dipstick Negative (Negative); Occult Blood-Urine 50 /ul (Negative); Protein-Dipstick 15 mg/dl (Negative); Red Blood Cells-Urine 0 SEEN /hpf (0-5); Urine Bilirubin Dipstick Negative (Negative); Urine Clarity Clear (Clear); Urine Urobilinogen Normal (Normal)
[2022-08-24 06:54] LABS: Absolute Lymphocyte Count 2.15 X10^3/uL (0.83-4.51); Absolute Neutrophil Count 8.1 X10^3/uL (2.0-7.7); Basophil# 0.06 X10^3/uL; Basophil% 0.5 % (0-1); Eosinophil# 0.35 X10^3/uL; Hematocrit 37.2 % (37-47); Hemoglobin 11.7 g/dL (12.0-15.0); Lymphocyte # 2.15 X10^3/ul (0.83-4.51); Lymphocyte % 18.4 % (19-41); Mean Corp Hgb Conc 31.5 g/dL (32-36); Mean Corpuscular Hgb 28.5 pg (27.0-32.0); Mean Corpuscular Volume 90.5 fL (81-99); Mean Platelet Vol. 10.7 fl (6.2-12.0); Monocyte# 0.71 X10^3/uL; Monocyte% 6.1 % (0-10); NRBC Flagged by Analyzer 0 % (0-5); Neutrophil # 8.13 X10^3/uL (2.7-7.7); Neutrophil % 69.7 % (47-70); Platelet Count 253 K/mm3 (150-450); RBC Distribution Width CV 17.4 % (11.6-14.6); RBC Distribution Width SD 57.5 fl (35.1-43.9); Red Blood Count 4.11 M/mm3 (4.2-5.4); White Blood Count 11.7 K/mm3 (4.4-11.0)
[2022-08-24 07:02] LABS: Bacteria 2+ /hpf (None Seen); Squamous Epithelial Cells - UA 0-5 SEEN /hpf (5-10); White Blood Cells 0-5 SEEN /hpf (0-5)
[2022-08-24 07:15] LABS: ALB/GLOB Ratio 0.6 RATIO (0.9-2.4); AST(SGOT) 10 U/L (15-37); Alanine Aminotransfer ALT/SGPT 16 U/L (13-56); Albumin, Serum 2.3 g/dL (3.2-5.0); Alkaline Phosphatase 118 U/L (45-117); Anion Gap 7 (5-15); BUN 7 mg/dL (7-18); BUN/Creat Ratio 9.8 RATIO (10-20); Chloride 110 mmol/L (98-107); Creatinine, Serum 0.72 mg/dL (0.55-1.02); EST Glomerular Filtration Rate 109 mL/min (>60); Est Glom Filt Rate - Afr Amer 132 mL/min (>60); Globulin 3.7 g/dL (2.2-4.2); Glucose 132 mg/dL (74-106); Potassium 3.3 mmol/L (3.5-5.1); Sodium Level 139 mmol/L (136-145); Total Bilirubin < 0.10 mg/dL (0.20-1.00)
[2022-08-24] MEDS: Mag Hydrox/Al Hydrox/Simeth 30 ML UDC PO (09:53)
--- NOTE | 2022-08-24 12:17 | OB.TRI.NOTE ---
HPI - General General Date of Service: 08/24/22 HPI Narrative AWAIS SHAH, is a 21 F who presents after being evaluated for a seizure in the ED. Patient with known seizure disorder. Maternal Data Information Final SUNG: 10/14/22 Gestational age: 32&5 PFSH PFSH Medical History Depression Seizure Home Medications lacosamide 100 mg tablet (Vimpat) 200 mg PO BID 10/24/16 [History Last Taken Unknown] levetiracetam 500 mg tablet 1,575 mg PO BID 02/28/17 [History Last Taken Unknown] zonisamide 100 mg capsule (Zonegran) 200 mg PO DAILY 02/28/17 [History Last Taken Unknown] clobazam 20 mg tablet (Onfi) 20 mg PO BID 08/28/21 [History Last Taken Unknown] zonisamide 100 mg capsule 300 mg PO QHS 08/28/21 [History Last Taken Unknown] clonazepam 0.5 mg tablet 0.5 mg PO DAILY PRN Seizure Activity 10/28/21 [History Last Taken Unknown] Allergy/AdvReac Type Severity Reaction Status Date / Time divalproex sodium Allergy Other Verified 08/24/22 05:25 [From Depakote] Surgical History no surgical history Social History Smoking Status: Never smoker NST FHR Rate Baby A Baseline: 125 Variability:: Moderate Accelerations:: 15 x 15 Decelerations:: None NST Reactive:: Yes Uterine Activity:: quiet Assessment & Plan (1) Seizure disorder: (2) : PLAN: Plan Patient s/p ED evaluation for seizure. Reactive NST.
== END 2022-08-24 09:56 | disposition home or self-care (01) ==
LOC: ED 07:54 → WPOUT 08:22 → WP 08:22
PROVIDERS: Emergency Provider Emergency Medicine; PCP Pediatrics; Visit Provider Obstetrics & Gynecology
DX: O99.353 Diseases of the nervous system complicating pregnancy, third trimester (principal); F33.2 Major depressive disorder, recurrent severe without psychotic features; G40.909 Epilepsy, unspecified, not intractable, without status epilepticus; O99.343 Other mental disorders complicating pregnancy, third trimester; Z3A.32 32 weeks gestation of pregnancy; Z79.899 Other long term (current) drug therapy
CPT/HCPCS: 59025; 59050; 80053; 81001; 85025; 99221; 99285; A4216; G0378

== ENCOUNTER 2023-05-02 17:29 | Emergency (ER) | payer MEDICAID, SELFPAY ==
[2023-05-02 17:31] VITALS: BP 129/85; PULSE 87; RESP 14; TEMP 36.8; O2SAT 100; BMI 36.5
--- NOTE | 2023-05-02 19:01 | EDS_ITS ---
HPI History of Present Illness Chief Complaint: Foreign Body Informant: patient Narrative Narrative: Patient presents secondary to rectal foreign body. She states she was giving herself an enema 2 days ago when the enema tip became unscrewed and lodged in her rectum. She has not been able to remove this. No significant abdominal pain. No blood from the rectum. [facility] Medical History Depression Seizure Home Medications lacosamide 100 mg tablet (Vimpat) 200 mg PO BID 10/24/16 [History Last Taken Unknown] levetiracetam 500 mg tablet 1,575 mg PO BID 02/28/17 [History Last Taken Unknown] zonisamide 100 mg capsule (Zonegran) 200 mg PO DAILY 02/28/17 [History Last Taken Unknown] clobazam 20 mg tablet (Onfi) 20 mg PO BID 08/28/21 [History Last Taken Unknown] zonisamide 100 mg capsule 300 mg PO QHS 08/28/21 [History Last Taken Unknown] clonazepam 0.5 mg tablet 0.5 mg PO DAILY PRN Seizure Activity 10/28/21 [History Last Taken Unknown] Allergy/AdvReac Type Severity Reaction Status Date / Time divalproex sodium Allergy Other Verified 05/02/23 17:31 [From [facility]] Social History Smoking Status: Never smoker ROS ROS ED Constitutional Constitutional ED: Denies chills or fever(s) Cardiovascular Cardiovascular: Denies chest pain Respiratory/Chest Respiratory/Chest: Denies cough or dyspnea Gastrointestinal Gastrointestinal: Denies abdominal pain, nausea or vomiting Musculoskeletal Musculoskeletal: Denies back pain or extremity pain Integumentary Denies Abrasions or rash Neurologic Neurologic: Denies headache(s) or weakness Psychiatric Psychiatric: Denies anxiety or depression Allergic/Immunologic Allergic/Immunologic ED: Denies lip swelling or urticaria EXAM Physical Exam Const Vital Signs: 05/02/23 17:31 05/02/23 18:22 Temperature 98.2 F Temperature Source Temporal Pulse Rate 87 Respiratory Rate 14 Respiratory Pattern Normal Blood Pressure 129/85 H Blood Pressure Mean 99 Pulse Ox 100 Oxygen Delivery Method Room Air Positive well nourished and well developed General Appearance ED: well developed HEENT Reports moist mucous membranes Eyes EOMs intact bilaterally Chest Wall inspection of chest normal and palpation of chest normal Resp normal respiratory effort and clear to auscultation bilaterally Cardio regular rate and regular rhythm GI non-tender Palpation: soft Neuro oriented x3 Psych mental status grossly normal Skin no rashes or lesions noted MDM MDM MDM Narrative Medical decision making narrative: Patient consented for rectal exam. With nurse internal communications writer in the room patient is placed in left lateral position. Foreign body is palpated in the rectum. This was easily removed by myself. Patient will undergo x-ray to ensure no abnormal bowel gas pattern. She denies possibility of . Abdominal x-ray per my interpretation reveals no evidence of remaining radiopaque foreign body. Nonobstructive bowel gas pattern is noted with no free air. Radiology interpretation reviewed and agrees. Patient be discharged home at this time. Return instructions given. Radiography Diagnostic Testing: Clinical Impression(s) from Imaging Studies KUB X-Ray 05/02/23 19:05 IMPRESSION: No residual radiodense foreign body. Electronically Signed: Luiz Rutherford MD at 19:37 EST , Discharge Plan Triage Chief Complaint: Foreign Body ED Provider: Miranda Randall Dx/Rx/DC Orders Clinical Impression: Rectal foreign body Instructions: ED Rectum Foreign Object Removed Prescriptions: No Action lacosamide [Vimpat] 100 MG tablet 200 mg PO BID levetiracetam 500 MG tablet 1,575 mg PO BID zonisamide [Zonegran] 100 MG capsule 200 mg PO DAILY zonisamide 100 mg Capsule 300 mg PO QHS clobazam [Onfi] 20 mg Tablet 20 mg PO BID clonazepam 0.5 mg tablet 0.5 mg PO DAILY PRN (Reason: Seizure Activity) Patient Comments: TAKE 1 TABLET BY MOUTH NEEDED FOR UP TO 10 DOSES. Primary Care Provider: Care Physician,No Primary Referrals: Renée Brantley MD [Non-Staff] - Erick Cam MD [Med Staff - Active Staff] - As Needed Disposition Disposition: Home, Self Care
--- NOTE | 2023-05-02 19:05 | RAD_ITS ---
INDICATION: rectal FB, removed EXAMINATION/TECHNIQUE: X-RAY - XR Abdomen 1 View COMPARISON: 05/24/2016 FINDINGS: BOWEL GAS PATTERN: Non-obstructive. No bowel or stomach distention. FREE AIR: Not assessed on a single supine view. ORGANOMEGALY: Not seen. CALCIFICATIONS: No abnormal calcifications observed. LOWER CHEST: No acute pathology. BONES AND SOFT TISSUES: No acute findings. No radiodense foreign body. RAD/Abdomen Single View IMPRESSION: No residual radiodense foreign body. Electronically Signed: Luiz Rutherford MD at 19:37 EST ,
== END 2023-05-02 19:58 | disposition home or self-care (01) ==
PROVIDERS: Emergency Provider Emergency Medicine; Visit Provider Emergency Medicine
DX: T18.5XXA Foreign body in anus and rectum, initial encounter (principal); W44.B9XA Other plastic object entering into or through a natural orifice, initial encounter
CPT/HCPCS: 74018; 99282

== ENCOUNTER 2024-11-27 12:20 | Emergency (ER) | payer MEDICAID, SELFPAY ==
[2024-11-27 12:21] VITALS: BP 116/86; PULSE 88; RESP 20; TEMP 36.6; O2SAT 98
--- NOTE | 2024-11-27 13:30 | ED.RN ---
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 pt asks for warm blankets and tv remote. this rn goes to get blanket and upon return pt states to this rn while you were gone i had a cluster seizure. this rn asks pt what that looks like for her. pt states i stare off and my eyes flutter really fast. this rn informs dr rivas.
[2024-11-27 13:33] VITALS: BP 112/78; PULSE 82; RESP 16; O2SAT 99
--- NOTE | 2024-11-27 13:36 | EDS_ITS ---
HPI History of Present Illness Chief Complaint: Dizziness Informant: patient Onset/Context/Timing Onset: Today Context: Gradual Onset Timing: Continuous Quality: Spinning, dizzy Location: Generalized Worsened by: Nothing Relieved by: Nothing Narrative Narrative: Patient presents with dizziness that began today. Patient states it has been constant. Patient describes it as a spinning sensation. Patient states it is all over. Patient states nothing makes it better nothing makes it worse. Patient admits to some nausea and vomiting. Patient denies any fevers or chills. Patient states she has a history of seizures but has not missed any of her doses of her seizure medication. Patient states her mother gives her her seizure medicines. Patient is unsure if her mother gave her the wrong seizure medication today. [facility] Medical History (Updated 11/27/24 @ 15:[address] Daniel Reza DO) Depression Seizure Home Medications ?Medication ?Instructions ?Recorded ?Last Taken ?Type lacosamide 100 mg tablet (Vimpat) 200 mg PO BID Unknown History levetiracetam 500 mg tablet 1,575 mg PO BID 02/28/17 U nknown History zonisamide 100 mg capsule 200 mg PO DAILY 02/28/17 Unk nown History (Zonegran) clobazam 20 mg tablet (Onfi) 20 mg PO BID 08/28/21 Unk nown History zonisamide 100 mg capsule 300 mg PO QHS 08/28/21 Unkno wn History clonazepam 0.5 mg tablet 0.5 mg PO DAILY PRN Seizure 10/28/21 Unknown History Activity Allergy/AdvReac Type Severity Reaction Status Date / Time divalproex sodium (From Allergy Other Verified 11/27/24 12:24 Depakote) Surgical History (Updated 11/27/24 @ 15:[address] Daniel Reza DO) Hx of section Social History Smoking Status: Never smoker ROS ROS ED Constitutional Constitutional ED: Denies chills or fever(s) Eyes Eyes: Denies blurry vision or change in vision ENT ENT ED: Denies rhinorrhea or sore throat Cardiovascular Cardiovascular: Denies chest pain or palpitations Respiratory/Chest Respiratory/Chest: Denies cough or dyspnea Gastrointestinal Gastrointestinal: Reports nausea and vomiting Genitourinary Genitourinary ED: Denies dysuria or hematuria Musculoskeletal Musculoskeletal: Denies back pain or neck pain Integumentary Denies abscess or rash Neurologic Neurologic: Denies headache(s) or weakness Allergic/Immunologic Allergic/Immunologic ED: Denies mouth swelling or urticaria EXAM Physical Exam Const Vital Signs: 11/27/24 12:21 Temperature 97.8 F Temperature Source Temporal Pulse Rate 88 Respiratory Rate 20 H Blood Pressure 116/86 H Blood Pressure Mean 96 Pulse Ox 98 Oxygen Delivery Method Room Air Positive well nourished and well developed General Appearance ED: well developed and NAD HEENT Reports moist mucous membranes Neck supple and no JVD Resp normal respiratory effort and clear to auscultation bilaterally Cardio regular rate and regular rhythm GI non-tender and non-distended Palpation: soft Neuro oriented x3, CN's II-XII intact bilaterally and no sensory deficits noted Sensorium / Orientation: alert Motor Exam: strength 5/5 throughout Psych mental status grossly normal MDM MDM MDM Narrative Medical decision making narrative: Differential diagnosis includes dehydration, electrolyte abnormality, , urinary tract infection, and anxiety. CBC will be obtained to assess for leukocytosis and anemia. Basic metabolic profile will be obtained to assess for electrolyte abnormality and renal function. Serum hCG will be obtained to assess for . Urinalysis will be obtained to assess for urinary tract infection and hematuria. Treatment and Re-Evaluation :: Patient was ordered IV fluids. Patient states not want to wait for laboratory evaluation for IV fluids. Patient states he is going to go home. Patient was instructed to drink plenty of fluids. Patient was instructed to continue her medications as previously prescribed. Patient was instructed to follow-up with her primary care physician in 5 to 7 days. Patient was instructed to return if worse in any way. Patient understood and was agreeable with plan. All questions were answered. Discharge Plan Triage Chief Complaint: Dizziness ED Provider: Daniel Reza Dx/Rx/DC Orders Clinical Impression: Nonspecific dizziness, Seizure disorder Instructions: ED Dizziness, Uncertain Cause Prescriptions: No Action lacosamide [Vimpat] 100 MG tablet 200 mg PO BID levetiracetam 500 MG tablet 1,575 mg PO BID zonisamide [Zonegran] 100 MG capsule 200 mg PO DAILY zonisamide 100 mg Capsule 300 mg PO QHS clobazam [Onfi] 20 mg Tablet 20 mg PO BID clonazepam 0.5 mg tablet 0.5 mg PO DAILY PRN (Reason: Seizure Activity) Patient Comments: TAKE 1 TABLET BY MOUTH NEEDED FOR UP TO 10 DOSES. Primary Care Provider: Renée Brantley Referrals: Care Physician,No Primary [Non-Staff] - Lyssa Rivas Abelardo, FINANCIAL BUSINESS ANALYST-C [[facility]] - 5-7 Days Print Language: Hebrew Disposition Disposition: Home, Self Care
--- OUTSIDE RECORDS SUMMARY | 2024-11-27 13:41 | XMS RPT_ITS | CCD ---
Author Organization [facility] Care Team Providers Care Gravel Screener Name Role Phone Mark Schmidt Primary Care Provider Unavail able ARIC DUONG, DR RENÉE Wilson Primary Care Physician Mark Schmidt Primary Care Provider Unavail able Mark Schmidt Primary Care Provider Unavail able Mark Schmidt Primary Care Provider Unavail able Maynor Ortega Karla Unavailable Unavailable Primary Care Provider Unavailelizabeth Upton RN, Amirah Unavailable Unavailable Mark Schmidt Primary Care Provider Unavail able Maynor Ortega Karla Unavailable ARIC DUONG, DR RENÉE Wilson Primary Care Unavailab ariel TOSCANO DO, DR ANDREI Pimentel Attending Unavailable KEILA DUONG, KEVIN Sutherland Admitting Unavailelizabeth PEDRAZA MD, KEVIN Sutherland Attending Unavailelizabeth CORBETT MD, DR RENÉE Wilson Primary Care Unavailab ariel GURROLA MD, DR NARA Herrera Consulting Laquita BARNARD MD, JAYN CONRAD Consulting U huyen GODDARD DO, DR SAMSON Pimentel Attending Unavailable ARIC DUONG, DR RENÉE Wilson Primary Care Unavailab ariel PANCHAL MD, DR MANCILLA Attending Unavailelizabeth CORBETT MD, DR RENÉE Wilson Primary Care Unavailab ariel CORBETT MD, DR RENÉE Wilson Primary Care Unavailab ariel TOSCANO DO, DR ANDREI Pimentel Attending Unavailable Unavailable Primary Care Provider UnavailRUBEN Gant Attending UnavailRUBEN Gant Attending Unavailabl e Care Physician, No Primary Referring Unava ilable Mely Boateng Attending Unavailable Care Physician, No Primary Primary Care Unava ilable Care Physician, No Primary Primary Care Unava ilable Miranda Randall Attending Unavailable ARIC DUONG, DR RENÉE Wilson Primary Care Unavailab MONA Pereyra DO Attending ARIEL Mesa Attending RUBEN Kingston Attending RUBEN To Referring UnavailARIEL Olivier Referring Unavailable ARIEL GUTIERREZ Attending Unavailable PATRICK ARREOLA Referring Unavailable ARIEL GUTIERREZ Referring ARIEL Mesa Attending Unavailable Allergies Allergy Classification Reported Allergen(s) Allergy Type Date of Onset Reaction(s) Facility (20 sources) Valproate; Translations: [DIVALPROEX] Drug Allergy 2 Other: See Comments [facility] Work Phone: (5 sources) Valproate; Translations: [divalproex sodium] Drug Allergy [facility] Comment on above: Kidney shut down (1 source) Valproate Drug Allergy 3 [facility] Repository Medications Current Medications Medication Drug Class(es) Dates Sig (Normalized) Sig (Original) 8 hr acetaminophen 650 mg extended release oral tablet (2 sources) Start: 09-29-2022 End: 10-13-2022 take 1 tablet by mouth three times daily acetaminophen (TYLENOL 8 HOUR) 650 mg CR tablet Take 1 tablet by mouth three times daily for 14 days. 42 Each 0 09/29/2022 10/13/2022 Active Comment on above: Take 1 tablet by julianna three times daily for 14 days. cephalexin 500 mg oral capsule (2 sources) Cephalosporin Antibacterial Start: 07-11-2022 End: 07-17-2022 cephalexin 500 mg oral capsule Dose : 500 mg = 1 cap(s), Oral, QID, X 6 day(s), # 24 cap(s), 0 Refill(s), 07/17/22 12:24:00 EST, Pharmacy: [facility]/pharmacy #[id number], 160, cm, 07/11/22 4:12:00 EST, Height, 86, kg, 07/11/22 4:12:00 EST, Dosing Weight Start Date: 07/11/22 Stop Date: 07/17/22 Status: Ordered cholecalciferol 0.025 mg oral tablet (18 sources) Vitamin D Start: 10-16-2014 Cholecalciferol (Vitamin D3) (Vitamin D) 1,000 UNIT tablet Active 2000 UNIT PO DAILY October 16, 2014 1:13pm End: 09-08-2022 take 1 tablet by mouth once daily Cholecalciferol, Vitamin D3, 50 mcg (2,000 unit) cap Take 1 tablet by mouth once daily. 0 02/07/2022 Discontinued (Other) Comment on above: Take 1 tablet by julianna once daily. cloBAZam 10 mg oral tablet (20 sources) Benzodiazepine Start: End: take 2 tablets by mouth twice daily cloBAZam (ONFI) 10 mg tab tablet Indications: Generalized epilepsy (HCC) Take 2 tablets by mouth two times a day for 180 days. 360 tablet 1 07/21/2024 01/17/2025 Active Start: 01-27-2023 End: 07-11-2024 take 2 tablets by mouth twice daily cloBAZam (ONFI) 10 mg tab tablet Indications: Generalized epilepsy (HCC) Take 2 tablets by mouth two times a day for 180 days. 360 tablet 1 01/13/2024 07/11/2024 Active Start: 09-14-2022 End: 03-13-2023 Onfi 10 mg oral tablet Dose : 20 mg = 2 tab(s), Oral, BID, 0 Refill(s), 94 Start Date: 09/14/22 Stop Date: 03/13/23 Status: Ordered Repeat number: 1 Start: 07-18-2022 End: 01-14-2023 take 2 tablets by mouth twice daily cloBAZam (ONFI) 10 mg tab tablet Indications: Generalized epilepsy (HCC) Take 2 tablets by mouth twice daily for 180 days. 360 tablet 1 07/18/2022 01/14/2023 Start: 09-19-2021 End: 05-13-2022 take 2 tablets by mouth twice daily cloBAZam (ONFI) 10 mg tab tablet Indications: Generalized epilepsy (HCC) Take 2 tablets by mouth twice daily for 90 days. = 360 tablet 1 02/12/2022 05/13/2022 Active Start: 10-24-2016 take 1 tablet by julianna twice daily Clobazam (Onfi) 20 mg Tablet Active 20 MG PO TWICE A DAY August 27, 2021 11:00pm Comment on above: Take 10 mg by mouth twice daily. 1 1/2 tablets in the morning and 2 tablets at night Take [address] [facility] twice daily for 90 days. = Take 2 tablets by mo ut twice daily for 180 days. Take [address] [facility] two times a day for 180 days. clonazePAM 0.5 mg oral tablet (20 sources) Benzodiazepine Start: End: take 1 tablet by mouth three times daily clonazePAM (KLONOPIN) 0.5 mg tablet Indications: Generalized idiopathic epilepsy and epileptic syndromes, intractable, without status epilepticus (HCC) Take 1 tablet by mouth three times a day for 180 days. 270 tablet 1 08/04/2024 01/31/2025 Active Start: 09-14-2022 Klonopin 2 mg oral tablet Dose : 2 mg = 1 tab(s), Oral, 0 Refill(s), 94 Start Date: 09/14/22 Status: Ordered Repeat number: 1 Start: 07-11-2022 End: 07-21-2024 take 1 tablet by mouth three times daily clonazePAM (KLONOPIN) 0.5 mg tablet Take 1 tablet by mouth three times a day for 180 days. 270 tablet 1 01/23/2024 Active Start: 10-28-2021 take 0.5 mg by mouth once odell y Clonazepam Active 0.5 MG PO DAILY October 27, 2021 11:00pm Start: 06-06-2021 End: 03-05-2023 clonazePAM (KLONOPIN) 0.5 mg tablet Indications: Convulsions, unspecified convulsion type (HCC) Take 1 tablet by mouth as needed (for seizures lasting longer than 3 minutes or cluster of seizures) for up to 180 days. 10 tablet 0 09/06/2022 03/05/2023 Active Start: 09-01-2020 Clonazepam Act unruly 0.5 MG PO NEEDED September 01, 2020 4:29pm Comment on above: Take 1 tablet by julianna th as needed for up to 10 doses. Take 1 tablet by julianna th as needed (for seizures lasting longer than 3 minutes or cluster of seizures) for up to 180 days. Take 1 tablet by julianna th three times daily for 180 days. Take 1 tablet by julianna th three times a day for 180 days. ethosuximide 250 mg oral capsule (20 sources) Anti-epileptic Agent Start: End: take 1 capsule by mouth twice daily ethosuximide (ZARONTIN) 250 mg capsule Take 1 capsule by mouth two times a day. 180 capsule 1 08/04/2024 01/31/2025 Active Start: 10-07-2022 End: 07-21-2024 take 1 capsule by mouth twice daily ethosuximide (ZARONTIN) 250 mg capsule Take 1 capsule by mouth two times a day. 180 capsule 1 01/23/2024 Active Comment on above: Take 1 capsule by mo ut twice daily. Take 1 capsule by mo ut two times a day. ferrous sulfate 325 mg oral tablet (20 sources) Start: 09-14-2022 End: 01-14-2024 IRON (ferrous sulfate 325 mg) 65 mg oral tablet Dose : 325 mg = 1 tab(s), Oral, qDay, Take with food. Start Date: 09/14/22 Status: Ordered Repeat number: 1 FERROUS SULFATE ORAL Take by mouth. 0 Active Comment on above: Take by mouth. Take 325 mg by mouth daily at bedtime. Folic Acid (20 sources) Start: 07-11-2022 folic acid qDa y, 0 Refill(s) Start Date: 07/11/22 Status: Ordered Repeat number: 1 Start: 07-11-2022 folic acid qDa y, 0 Refill(s) Start Date: 07/11/22 Status: Ordered Start: 02-12-2022 take 2 tablets by mo uth twice daily folic acid 1 mg tablet Take 2 tablets by mouth twice daily. 360 tablet 3 02/12/2022 Active Start: 02-07-2022 End: 02-12-2022 take 2 tablets by mouth once daily folic acid 1 mg tablet Take 2 tablets by mouth once daily. 60 tablet 1 02/07/2022 02/12/2022 Discontinued Start: 02-28-2017 take 1 mg by mouth once daily Folic Acid Active 1 MG PO DAILY February 28, 2017 9:07pm End: 02-07-2022 take 1 tablet by mouth once daily folic acid 400 mcg tablet Take 400 mcg by mouth once daily. 0 02/07/2022 Discontinued (Other) Comment on above: Take 400 mcg by mout once daily. Take 2 tablets by mo uth twice daily. Take 2 tablets by mo ut once daily. ibuprofen 600 mg oral tablet (2 sources) Nonsteroidal Anti-inflammatory Drug Start: 3 End: 3 take 1 tablet by mouth every eight hours ibuprofen (MOTRIN) 600 mg tablet Take 1 tablet by mouth every 8 hours for 14 days. 42 tablet 0 09/29/2022 10/13/2022 Active Comment on above: Take 1 tablet by julianna th every 8 hours for 14 days. lacosamide 50 mg oral tablet (20 sources) Anti-epileptic Agent Start: 5 End: 5 take 1 tablet by mouth twice daily lacosamide (VIMPAT) 50 mg tab Indications: Generalized idiopathic epilepsy and epileptic syndromes, intractable, without status epilepticus (HCC) Take 1 tablet by mouth two times a day for 180 days. 180 tablet 1 11/26/2024 05/25/2025 Active Start: 08-04-2024 End: 01-31-2025 take 2 tablets by mouth twice daily lacosamide (VIMPAT) 150 mg tab Indications: Unspecified convulsions (HCC) , Generalized idiopathic epilepsy and epileptic syndromes, intractable, without status epilepticus (HCC) Take 2 tablets by mouth two times a day for 180 days. 360 tablet 1 08/04/2024 01/31/2025 Active Start: 10-07-2022 End: 07-21-2024 take 2 tablets by mouth twice daily lacosamide (VIMPAT) 150 mg tab Take 2 tablets by mouth two times a day for 180 days. 360 tablet 1 01/23/2024 Active Start: 09-14-2022 End: 11-14-2022 lacosamide (VIMPAT) 50 mg ta b Indications: 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) Take 1 tablet (50 mg) in combination with 200 mg tablet to make a total of 250 mg twice daily. 60 tablet 1 09/14/2022 11/14/2022 Active Start: 07-11-2022 lacosamide Dos e : 200 mg =, BID, 0 Refill(s), 86 Start Date: 07/11/22 Status: Ordered Repeat number: 1 Start: 07-11-2022 lacosamide Dos e : 200 mg =, BID, 0 Refill(s), 86 Start Date: 07/11/22 Status: Ordered Start: 07-25-2021 End: 01-14-2023 Vimpat 200 mg oral tablet Do se : 200 mg = 1 tab(s), Oral, BID, 0 Refill(s), 94 Start Date: 09/14/22 Status: Ordered Repeat number: 1 Start: 10-24-2016 take 1 tablet by julianna twice daily Lacosamide (Vimpat) 100 MG tablet Active 200 MG PO TWICE A DAY October 23, 2016 11:00pm Comment on above: Take 1 tablet by ujlianna twice daily for 180 days. Take 1 tablet (50 mg ) in combination with 200 mg tablet to make a total of 250 mg twice daily. Take [address] [facility] twice daily for 180 days. Take [address] [facility] two times a day for 180 days. levETIRAcetam 1000 mg oral tablet (20 sources) Start: 09-23-19 End: 03-21-20 take 2.5 tablets by mouth twice daily levETIRAcetam (KEPPRA) 1,000 mg tablet Take 2.5 tablets by mouth two times a day. 450 tablet 1 09/22/2024 03/21/2025 Active Start: 08-04-2024 End: 01-31-2025 take 3 tablets by mouth twice daily levETIRAcetam (KEPPRA) 1,000 mg tablet Take 3 tablets by mouth two times a day. 540 tablet 1 08/04/2024 09/22/2024 Discontinued Start: 10-07-2022 End: 07-21-2024 take 3 tablets by mouth twice daily levETIRAcetam (KEPPRA) 1,000 mg tablet Take 3 tablets by mouth two times a day. 540 tablet 1 01/23/2024 Active Start: 09-14-2022 Keppra 1000 mg oral tablet Dose : 4,000 mg = 4 tab(s), Oral, qDay, 0 Refill(s) Start Date: 09/14/22 Status: Ordered Repeat number: 1 Start: 09-04-2022 End: 12-03-2022 take 4 tablets by mouth twice daily levETIRAcetam (KEPPRA) 1,000 mg tablet Take 4 tablets by mouth twice daily. 240 tablet 2 09/04/2022 12/03/2022 Active Start: 08-31-2022 End: 09-04-2022 take 3 tablets by mouth twice daily levETIRAcetam (KEPPRA) 1,000 mg tablet Take 3 tablets by mouth twice daily. 60 tablet 0 08/31/2022 09/04/2022 Discontinued Start: 07-11-2022 Keppra 500 mg oral tablet Dose : 1,750 mg = 3.5 tab(s), Oral, BID, 0 Refill(s) Start Date: 07/12/22 Status: Ordered Repeat number: 1 Start: 02-28-2017 End: 09-28-2022 levETIRAcetam (KEPPRA) 500 m g tablet Take 1,500 mg by mouth twice daily. Patient takes 2,000mg in the morning and 2,000mg at night. 0 02/28/2017 09/04/2022 Discontinued Start: 02-28-2017 take 1575 mg by mout h twice daily Levetiracetam Active 1575 MG PO TWICE A DAY February 27, 2017 11:00pm Start: 02-28-2017 take 1500 mg by mout h twice daily Levetiracetam Active 1500 MG PO TWICE A DAY February 28, 2017 9:07pm Comment on above: Take 3 tablets by mo uth twice daily. Take 1,500 mg by julianna twice daily. Patient takes 2,000mg in the morning and 2,000mg at night. Take 4 tablets by mo uth twice daily. Take 3 tablets by mo uth two times a day. magnesium oxide 400 mg oral tablet (1 source) Start: 10-25-19 17 take 250 mg by mouth twice daily Magnesium Oxide Active 250 MG PO TWICE A DAY October 24, 2016 11:34pm meclizine hydrochloride 25 mg oral tablet (1 source) Antiemetic Start: 10-18-19 22 take 25 mg by mouth once daily Meclizine Active 25 MG PO DAILY October 17, 2021 2:41pm perampanel 4 mg oral tablet (20 sources) Noncompetitive AMPA Glutamate Receptor Antagonist Start: 05-03-20 24 End: 01-30-20 25 take 1 tablet by mouth once daily at bedtime perampanel (FYCOMPA) 4 mg tablet Indications: Generalized idiopathic epilepsy and epileptic syndromes, intractable, with status epilepticus (HCC) Take 1 tablet by mouth daily at bedtime for 180 days. 90 tablet 1 08/02/2024 01/29/2025 Active Start: 10-30-2023 End: 04-22-2024 take 1 tablet by mouth once daily at bedtime perampanel (FYCOMPA) 4 mg tablet Indications: Generalized idiopathic epilepsy and epileptic syndromes, intractable, with status epilepticus (HCC) Take 1 tablet by mouth daily at bedtime for 90 days. 90 tablet 01/23/2024 Active Start: 01-14-2023 End: 09-10-2023 take 1 tablet by mouth once daily at bedtime perampanel (FYCOMPA) 2 mg tab(s) Indications: Generalized idiopathic epilepsy and epileptic syndromes, intractable, with status epilepticus (HCC) Take 1 tablet by mouth daily at bedtime for 180 days. 90 tablet 1 03/14/2023 05/02/2023 Discontinued Start: 12-12-2022 End: 10-14-2023 take 1 tablet by mouth once daily at bedtime perampanel (FYCOMPA) 4 mg tablet Indications: Generalized idiopathic epilepsy and epileptic syndromes, intractable, with status epilepticus (HCC) Take 1 tablet by mouth daily at bedtime for 90 days. 90 tablet 0 07/16/2023 10/14/2023 Active Start: 10-07-2022 End: 04-05-2023 take 1 tablet by mouth once daily at bedtime perampanel (FYCOMPA) 6 mg tab(s) Indications: Seizure (HCC) Take 1 tablet by mouth daily at bedtime for 180 days. 90 tablet 1 10/07/2022 12/12/2022 Discontinued Comment on above: Take 1 tablet by julianna th daily at bedtime for 180 days. Take 1 tablet by julianna th daily at bedtime for 30 days. Take 1 tablet by julianna th daily at bedtime for 90 days. Prenate Mini with DHA oral capsule (2 sources) Start: 09-14-2022 take 1 capsule by mouth once daily Prenate Mini with DHA oral capsule Dose = 1 cap(s), Oral, qDay, 0 Refill(s) Start Date: 09/14/22 Status: Ordered Repeat number: 1 Start: 09-14-2022 take [address] [facility] once daily Prenate Mini with DHA oral capsule Dose = 1 cap(s), Oral, qDay, 0 Refill(s) Start Date: 09/14/22 Status: Ordered promethazine hydrochloride 12.5 mg oral tablet (1 source) Phenothiazine Start: 10-17-2021 Promethazine A ctive 12.5 MG PO THREE TIMES A DAY October 17, 2021 2:41pm 3 doses during day; last dose no later than 4 hr before bedtime triamcinolone acetonide 1 mg/ml topical cream (18 sources) Corticosteroid Start: 08-28-2021 Triamcinolone Acetonide (Kenalog) 0.1 % Cream Active 1 APPLIC TOPICAL TWICE A DAY August 28, 2021 12:05pm Start: 03-06-2021 End: 02-07-2022 triamcinolone acetonide (RAYRAY ALOG) 0.1 % cream Apply to affected area twice daily. As needed for itching. 28.4 g 0 03/06/2021 02/07/2022 Discontinued (Other) Comment on above: Apply to affected ar ea twice daily. As needed for itching. vitamin b6 250 mg oral tablet (18 sources) Start: 08-28-2021 End: 02-07-2022 take 250 mg by mouth once daily Pyridoxine (Vitamin B6) Active 250 MG PO DAILY August 28, 2021 12:05pm Comment on above: Take 250 mg by mouth once daily. zonisamide 100 mg oral capsule (20 sources) Anti-epileptic Agent Start: 01-23-2024 End: 07-21-2024 take 3 capsules by mouth twice daily zonisamide (ZONEGRAN) 100 mg capsule Indications: Generalized epilepsy (HCC) Take 3 capsules by mouth two times a day. 540 capsule 1 07/20/2024 Active Start: 09-04-2022 End: 01-12-2024 take 3 capsules by mouth twice daily zonisamide (ZONEGRAN) 100 mg capsule Take 3 capsules by mouth two times a day. 540 capsule 1 07/16/2023 Active Start: 08-28-2021 take 300 mg by mouth at bedtim e Zonisamide Active 300 MG PO AT BEDTIME August 27, 2021 11:00pm Start: 07-02-2021 End: 09-04-2022 take 2 capsules by mouth once daily in the morning, then take 3 capsules by mouth once daily in the evening zonisamide (ZONEGRAN) 100 mg capsule Indications: Generalized epilepsy (HCC) , Convulsions, unspecified convulsion type (HCC) TAKE 2 CAPSULES BY MOUTH EVERY MORNING AND 3 CAPSULES EVERY EVENING. 450 capsule 1 03/29/2022 09/04/2022 Discontinued Start: 02-28-2017 zonisamide 100 mg oral capsule Dose : 200 mg = 2 cap(s), Oral, qAM, 0 Refill(s) Start Date: 07/11/22 Status: Ordered Repeat number: 1 Start: 02-28-2017 take 200 mg by mouth once odell y Zonisamide Active 200 MG PO DAILY February 28, 2017 9:07pm Comment on above: Take 2 capsules by m outh every morning AND 3 capsules every evening. Take 3 capsules by m outh twice daily. Take 3 capsules by m outh two times a day. Completed/Discontinued Medications Medication Drug Class(es) Dates Sig (Normalized) Sig (Original) amoxicillin 500 mg oral capsule (11 sources) Penicillin-class Antibacterial Start: 03-04-2022 End: 03-26-2022 take 1 capsule by mouth three times daily amoxicillin (POLYMOX, AMOXIL) 500 mg capsule TAKE 1 CAPSULE BY MOUTH THREE TIMES DAILY FOR 7 DAYS 21 capsule 0 03/04/2022 03/26/2022 Discontinued Comment on above: Take 1 capsule by mo uth three times daily for 7 days. FOR 7 DAYS. TAKE 1 CAPSULE BY MO UTH THREE TIMES DAILY FOR 7 DAYS Ethinyl Estradiol / norgestimate (20 sources) Progestin, Estrogen Start: 03-10-2024 End: 09-15-2024 take 1 tablet by mouth once daily norgestimate 0.25 mg-ethinyl estradiol 35 mcg (SPRINTEC) 0.25-35 mg-mcg per tablet Take 1 tablet by mouth once daily. 28 tablet 12 03/10/2024 09/15/2024 Discontinued Start: 03-10-2024 take 1 tablet by julianna once daily norgestimate 0.25 mg-ethinyl estradiol 35 mcg (SPRINTEC) 0.25-35 mg-mcg per tablet Take 1 tablet by mouth once daily. 28 tablet 12 03/10/2024 Active Magnesium (17 sources) End: 02-07-2022 take 1 tablet by mouth twice daily Magnesium 250 mg tab Take 250 mg by mouth twice daily. 1 tablet in the morning and 1 tablet at night 0 02/07/2022 Discontinued (Other) take 1 tablet by mouth twice criss ly Magnesium 250 mg tab Take 250 mg by mouth twice daily. 1 tablet in the morning and 1 tablet at night 0 Active Comment on above: Take 250 mg by mouth twice daily. 1 tablet in the morning and 1 tablet at night 1 ml medroxyPROGESTERone acetate 150 mg/ml prefilled syringe (20 sources) Progestin Start: End: medroxyPROGESTERone (DEPO-PROVERA) 150 mg/mL Inject 1 mL intramuscularly every 12 weeks. 1 mL 3 09/20/2024 11/26/2024 Discontinued (Course of therapy completed) Start: 04-28-2024 End: 09-15-2024 medroxyPROGESTERone (DEPO-CO OVERA) 150 mg/mL Inject 1 mL intramuscularly every 12 weeks. 1 mL 3 04/28/2024 09/15/2024 Discontinued Start: 01-14-2024 End: 08-30-2025 medroxyPROGESTERone 150 mg i njection (DEPO-PROVERA) Start: 01-14-2024 End: 04-14-2025 150 mg, INTRAMUSCULAR, EVERY 12 WEEKS, 4 doses, First dose on Bisi 05/13/24 at 1230, Last dose on Bisi 01/20/25 at 1230, Hazardous Potential Reproductive Risk Drug: Use appropriate PPE. Start: 12-02-2022 End: 11-03-2023 medroxyPROGESTERone 150 mg i njection (DEPO-PROVERA) Start: 12-02-2022 End: 03-10-2024 medroxyPROGESTERone (DEPO-CO OVERA) 150 mg/mL Inject 1 mL intramuscularly every 12 weeks. 1 mL 3 01/14/2024 03/10/2024 Discontinued Comment on above: Inject 1 mL intramus cularly every 12 weeks. nitrofurantoin, macrocrystals 25 mg / nitrofurantoin, monohydrate 75 mg oral capsule (3 sources) Nitrofuran Antibacterial Start: End: take 1 capsule by mouth twice daily nitrofurantoin monohydrate and macrocrystal (MACROBID) 100 mg capsule Take 1 capsule by mouth twice daily for 5 days. 10 capsule 0 04/15/2022 04/23/2022 Discontinued Comment on above: Take 1 capsule by [facility] twice daily for 5 days. ondansetron 4 mg oral tablet (13 sources) Serotonin-3 Receptor Antagonist Start: End: take 1 tablet by mouth every eight hours as needed ondansetron (ZOFRAN) 4 mg tablet Take 1 tablet by mouth every 8 hours as needed for nausea/vomiting. 30 tablet 0 03/26/2022 04/23/2022 Discontinued Start: 08-28-2021 take 4 mg by mouth e very eight hours as needed Ondansetron Active 4 MG PO EVERY 8 HOURS NEEDED August 28, 2021 3:08pm Comment on above: Take 1 tablet by [facility] every 8 hours as needed for nausea/vomiting. vit [id number] (PRENATE MINI, FERR ASP GLYCIN,) 18-1-350 mg cap (20 sources) Start: 02-08-20 End: 12-13-19 take 1 capsule by mouth once daily vit [id number] (PRENATE MINI, FERR ASP GLYCIN,) 18-1-350 mg cap Take 1 Dose by mouth once daily. 30 capsule 12 02/07/2022 12/12/2022 Discontinued Start: 02-07-2022 take 1 capsule by [facility] once daily vit [id number] (PRENATE MINI, FERR ASP GLYCIN,) 18-1-350 mg cap Take 1 Dose by mouth once daily. 30 capsule 12 02/07/2022 Suspended Start: 02-07-2022 take 1 capsule by [facility] once daily vit [id number] (PRENATE MINI, FERR ASP GLYCIN,) 18-1-350 mg cap Take 1 Dose by mouth once daily. 30 capsule 12 02/07/2022 Active Comment on above: Take 1 Dose by mouth once daily. Shower Chair with Back (20 sources) Start: 03-26-2022 Shower Chair with Back once daily. Use as directed 1 Each 0 03/26/2022 Suspended Start: 03-26-2022 Shower Chair w ith Back once daily. Use as directed 1 Each 0 03/26/2022 Active Comment on above: once daily. Use as d irected Problems Active Problems Problem Classification Problem Date Documented Date Episodic/Chronic Contraceptive and procreative management (18 sources) Subcutaneous contraceptive implant present; Translations: [Encounter for surveillance of implantable subdermal contraceptive] Onset: 09-15-2024 Episodic Epilepsy; convulsions (20 sources) Generalized epilepsy; Translations: [Generalized idiopathic epilepsy and epileptic syndromes, intractable, without status epilepticus] Onset: 10-06-2008 Resolved: 09-03-2022 07-25-2021 Chronic Intestinal infection (6 sources) Viral gastroenteritis; Translations: [Viral intestinal infection, unspecified] 09-05-2021 Episodic Menstrual disorders (7 sources) Irregular periods; Translations: [Irregular menstruation, unspecified] Onset: 09-15-2024 Chronic Nonspecific chest pain (1 source) Chest pain; Translations: [Chest pain, unspecified] Onset: 08-23-2022 Episodic Open wounds of head; neck; and trunk (6 sources) Scalp laceration; Translations: [Laceration without foreign body of scalp, initial encounter] 09-02-2020 Episodic Other aftercare (2 sources) Drug therapy finding; Translations: [Other [facility] (current) drug therapy] Episodic Other complications of (2 sources) Obesity; Translations: [Obesity complicating , unspecified trimester] Chronic Other complications of (20 sources) Maternal obesity complicating , childbirth and the puerperium, antepartum; Translations: [Obesity complicating , first trimester] Onset: 03-26-2022 03-26-2022 Chronic Other complications of (1 source) Anemia in mother complicating , childbirth AND/OR puerperium; Translations: [Anemia complicating , third trimester] Chronic Other complications of (12 sources) Anemia during - baby not yet delivered; Translations: [Anemia complicating , third trimester] Onset: 07-30-2022 07-30-2022 Chronic Other complications of (2 sources) Pain in female pelvis; Translations: [Other specified related conditions, unspecified trimester] Episodic Other complications of (1 source) Epilepsy; Translations: [Diseases of the nervous system complicating , unspecified trimester] Episodic Other complications of (1 source) Urinary tract infection in ; Translations: [Unspecified infection of urinary tract in , unspecified trimester] Onset: 07-10-2022 Episodic Other complications of (1 source) Reduced movement; Translations: [Decreased movements, third trimester, fetus 1] Episodic Other female genital disorders (1 source) Vaginal discharge; Translations: [Other specified noninflammatory disorders of vagina] 11-26-2024 Episodic Other female genital disorders (1 source) Disorder of female genital organs; Translations: [Other specified conditions associated with female genital organs and menstrual cycle] 11-26-2024 Episodic Other injuries and conditions due to external causes (1 source) Foreign body in rectum; Translations: [Foreign body in anus and rectum, initial encounter] 05-02-2023 Episodic Other nervous system disorders (1 source) H/O: epilepsy; Translations: [Personal history of other diseases of the nervous system and sense organs] 03-08-2024 Episodic Other upper respiratory infections (2 sources) Sore throat symptom; Translations: [Acute pharyngitis, unspecified] Episodic Poisoning by other medications and drugs (4 sources) Poisoning by unspecified drugs, medicaments and biological substances, accidental (unintentional), initial encounter; Translations: [Accidental overdose] 12-01-2021 Episodic Residual codes; unclassified (20 sources) Past history of procedure; Translations: [Presence of other specified functional implants] Onset: 03-09-2021 07-25-2021 Chronic Residual codes; unclassified (2 sources) Presence of other specified functional implants; Translations: [S/P placement of VNS (vagus nerve stimulation) device] Onset: 09-22-2022 Chronic Residual codes; unclassified (1 source) Gestation period, 11 weeks; Translations: [11 weeks gestation of ] Episodic Residual codes; unclassified (2 sources) Family history of genetic disorder carrier; Translations: [Family history of carrier of genetic disease] Episodic Residual codes; unclassified (1 source) Gestation period, 14 weeks; Translations: [14 weeks gestation of ] Episodic Residual codes; unclassified (1 source) Gestation period, 15 weeks; Translations: [15 weeks gestation of ] Episodic Residual codes; unclassified (2 sources) Gestation period, 19 weeks; Translations: [19 weeks gestation of ] Episodic Residual codes; unclassified (1 source) Gestation period, 22 weeks; Translations: [22 weeks gestation of ] Episodic Residual codes; unclassified (1 source) Gestation period, 25 weeks; Translations: [25 weeks gestation of ] Episodic Residual codes; unclassified (1 source) Gestation period, 27 weeks; Translations: [27 weeks gestation of ] Episodic Residual codes; unclassified (1 source) Gestation period, 28 weeks; Translations: [28 weeks gestation of ] Episodic Residual codes; unclassified (1 source) Gestation period, 29 weeks; Translations: [29 weeks gestation of ] Episodic Residual codes; unclassified (1 source) Gestation period, 32 weeks; Translations: [32 weeks gestation of ] Episodic Residual codes; unclassified (1 source) Gestation period, 33 weeks; Translations: [33 weeks gestation of ] Episodic Residual codes; unclassified (1 source) Gestation period, 35 weeks; Translations: [35 weeks gestation of ] Episodic Residual codes; unclassified (1 source) History of clinical finding in subject; Translations: [Personal history of other specified conditions] Episodic Residual codes; unclassified (2 sources) Unprotected sexual intercourse; Translations: [High risk heterosexual behavior] 01-14-2024 Episodic Spondylosis; intervertebral disc disorders; other back problems (2 sources) Acute low back pain; Translations: [Acute bilateral low back pain without sciatica] Episodic Unclassified (2 sources) Patient encounter status 09-16-2024 Past or Other Problems Problem Classification Problem Date Documented Date Episodic/Chronic Diabetes or abnormal glucose tolerance complicating ; childbirth; or the puerperium (20 sources) Abnormal glucose level; Translations: [Abnormal glucose complicating ] Onset: 07-30-2022 Episodic Disorders usually diagnosed in infancy, childhood, or adolescence (20 sources) Attention deficit hyperactivity disorder, predominantly inattentive type; Translations: [Other specified behavioral and emotional disorders with onset usually occurring in childhood and adolescence] Onset: 12-14-2009 Resolved: 09-03-2022 12-14-2009 Chronic E Codes: Fall (20 sources) Fall; Translations: [Unspecified fall, initial encounter] Onset: 09-03-2022 09-03-2022 Episodic Epilepsy; convulsions (20 sources) Seizure; Translations: [Unspecified convulsions] Onset: 07-10-2022 Episodic Hemorrhage during ; abruptio placenta; placenta previa (20 sources) Threatened miscarriage; Translations: [Threatened ] Onset: 04-23-2022 Resolved: 08-27-2022 04-23-2022 Episodic Immunizations and screening for infectious disease (4 sources) Vaccination needed; Translations: [Encounter for immunization] Onset: 01-14-2024 Episodic Other aftercare (20 sources) Polypharmacy ; Translations: [Other chcf (current) drug therapy] Onset: 01-23-2024 01-23-2024 Episodic Other aftercare (1 source) Other regional intermodal truck driver (current) drug therapy; Translations: [Polypharmacy] Onset: 01-23-2024 Episodic Other complications of (20 sources) Anemia of ; Translations: [Anemia complicating , third trimester] Onset: 07-30-2022 Resolved: 09-03-2022 09-03-2022 Chronic Other complications of (20 sources) High risk ; Translations: [Supervision of high risk , unspecified, first trimester] Onset: 02-12-2022 Resolved: 09-03-2022 Episodic Other complications of (20 sources) Morning sickness; Translations: [Other specified related conditions, unspecified trimester] Onset: 02-28-2022 Resolved: 09-03-2022 02-28-2022 Episodic Other complications of (20 sources) Seizure disorder; Translations: [Diseases of the nervous system complicating , unspecified trimester] Onset: 10-06-2008 03-26-2022 Episodic Other complications of (20 sources) Hereditary disease in family 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; Translations: [Maternal care for (suspected) hereditary disease in fetus, not applicable or unspecified] Onset: 04-23-2022 04-23-2022 Episodic Other injuries and conditions due to external causes (1 source) Foreign body in anus and rectum, initial encounter; Translations: [Foreign body in anus and rectum, initial encounter] Onset: 05-07-2023 Episodic Other and delivery including normal (20 sources) Urine test positive; Translations: [Encounter for test, result positive] Onset: 01-06-2022 Resolved: 09-28-2022 Episodic Comment on above: System added from do cumentation. Status documented as Yes on Admission Other screening for suspected conditions (not mental disorders or infectious disease) (8 sources) Patient encounter status; Translations: [Encounter for screening, unspecified] Onset: 01-14-2024 Episodic Residual codes; unclassified (1 source) High risk heterosexual behavior; Translations: [Unprotected sexual intercourse] Onset: 01-14-2024 Episodic Short gestation; low weight; and growth retardation (20 sources) Prematurity of ; Translations: [ , unspecified weeks of gestation] Onset: 09-03-2022 09-03-2022 Episodic Substance-related disorders (20 sources) Nicotine dependence; Translations: [Nicotine dependence, unspecified, uncomplicated] Onset: 07-24-2021 Resolved: 08-27-2022 07-25-2021 Chronic Results Test Name Value Interpretation Reference Range Facil ity UA DIP,URINE HCG (POC)on Beta HCG ( test) Ql (U) Negative Negative [facility] Comment on above: Location:[facility], [address] [place], [address] [place] (POCT) Internal [facility] Location:[facility], [address] [facility] [id number] [place] [address] POINT OF CARE [facility] CNPNon 11-18-2024 CNPN Telephone (NE50MN) KIKI WARE ([id number]) 2 F Date Time Provider Department 11/18/24 RUBEN TELLEZ NE50MN During your visit today, we recorded the following information about you: Wilmer Lozada, RN 11/18/2024 12:24 PM Signed Call to patient in regard to my chart message copied below: Kiki Ware to P Neur Epilepsy [facility] (supporting Ruben Tellez MD) [place] 11/17/24 6:45 PM I just started having small seizures again an I don?t know why an I have not missed any of my medication at night or morning I take them on time they just started coming back for some odd reason Seizure Call Last Visit: 02/19/2024 Next Visit: 12/13/2024 Date and Time of seizure: 11/18/2024 morning. She thinks she may have had 10 seizures this week. Seizure description: stares off and eyes flutter. Her hands clench. Duration: the one this morning lasted a couple of seconds. She had on last night that lasted two minutes. Witnessed: no Aura: no Last Seizure: patient is not sure when the last one was before this cluster. She said it has been a while. TB: no UI: no Rescue Medication used: took one LEV and one CZB last night after the 2 minute seizure. ASM: PER 4mg at HS LEV 3000mg BID LCM 300mg BID CLB 20mg BID ZNS 300mg BID CZP 0.5mg TID ETX 250mg BID Last labs on 09/15/2024 Triggers: patient thinks she might be , she says her breasts are sore and feeling nauseated. She has an OB appointment on 11/26/2024. Back to [place]: tired. Other: patient thinks she might be . States her period is 3 weeks late and she is symptomatic. Encouraged her to take a test and send the office a my chart if she is positive. Encouraged her to keep a log of her seizures. Patient states she does not drive. Patrick Arreola APRN.CNP 11/18/2024 4:20 PM Signed If sz's persists based on last labs would trial increasing LCM by 100 mg or PER by 2 mg. If she confirms would recheck levels KETAN and start monthly levels. Patrick Arreola APRN.Ladan Mcbride RN 11/19/2024 1:30 PM Signed Called the patient, left vmm and my chart message in other encounter. Ladan No RN Allergies As of Date: 11/18/2024 Noted Allergy Reaction DEPAKOTE (DIVALPROEX) 07/23/2021 14 - Other: See Comments Comments: Abnormal LFTs Date Reviewed: 09/15/2024 Reviewed by: Ariel Gutierrez APRN.CNP - Fully Assessed Prescriptions as of 11/19/2024 - levETIRAcetam (KEPPRA) 1,000 mg tablet Take 2.5 tablets by mouth two times a day. - medroxyPROGESTERone (DEPO-PROVERA) 150 mg/mL Inject 1 mL intramuscularly every 12 weeks. - lacosamide (VIMPAT) 150 mg tab Take 2 tablets by mouth two times a day for 180 days. - clonazePAM (KLONOPIN) 0.5 mg tablet Take 1 tablet by mouth three times a day for 180 days. - ethosuximide (ZARONTIN) 250 mg capsule Take 1 capsule by mouth two times a day. - perampanel (FYCOMPA) 4 mg tablet Take 1 tablet by mouth daily at bedtime for 180 days. - cloBAZam (ONFI) 10 mg tab tablet Take 2 tablets by mouth two times a day for 180 days. - zonisamide (ZONEGRAN) 100 mg capsule Take 3 capsules by mouth two times a day. - folic acid 1 mg tablet Take 2 tablets by mouth twice daily. Facility-Administered Medications as of 11/19/2024 - medroxyPROGESTERone 150 mg injection (DEPO-PROVERA) - medroxyPROGESTERone 150 mg injection (DEPO-PROVERA) Problem List As Of Date 11/18/2024 Noted Resolved Breakthrough seizure (HCC) [G40.919] 10/06/2008 ADD (attention deficit disorder) [F98.8] 12/14/2009 09/03/2022 S/P placement of VNS (vagus nerve stimulation) *03/09/2021 Generalized epilepsy (HCC) [G40.309] 07/23/2021 09/03/2022 Nicotine use disorder, F17.2 [F17.200] 07/24/2021 08/27/2022 Supervision of high risk , antepartum *02/12/2022 09/03/2022 related nausea, antepartum [O26.899, *02/28/2022 09/03/2022 Patient request for diagnostic testing [Z01.89] 02/28/2022 08/27/2022 Vaginal bleeding in , second trimester*04/23/2022 08/27/2022 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] 04/23/2022 Anemia, antepartum, third trimester [O99.013] 07/30/2022 09/03/2022 Abnormal glucose complicating [O99.81*07/30/2022 Seizure (HCC) [R56.9] 09/03/2022 Fall from standing [W19.XXXA] 09/03/2022 Prematurity of fetus [P07.30] 09/03/2022 Encounter for induction of labor [Z34.90] 09/22/2022 09/28/2022 Polypharmacy [Z79.899] 01/23/2024 Encounter Status:Closed by WILMER LOZADA on 11/18/24 [facility] 10-29-2024 STEPHANIE Telephone (OBGYWM) KIKI WARE ([id number]) 2 F Date Time Provider Department 10/29/24 ARIEL GUTIERREZ During your visit today, we recorded the following information about you: Nathaniel Mckinney, RN 10/29/2024 11:15 AM Signed Patient calling in because she is concerned that she has not started menses yet. Last Depo Injection was 05/13/2024. States she has not been sexually active for 75 days. I calculated 75 days prior to today and that was August 13. she states she is unsure -that she might of had intercourse a few days days after that. States that she took a test 1 month ago and it was negative. States she does not want to use any control at this time. I recommended patient take another test and call us back with result. She stated I am sure I am not . I am pretty skinny. Patient last seen in office 09/15/2024for contraceptive management. Please advise. Ariel Gutierrez APRN.MEDICAL OFFICE COORDINATOR 10/29/2024 11:17 AM Signed Kiki has no showed x 3 appointments this month. She can make an appointment with any provider to discuss her concerns. Ariel Gutierrez APRN.Radha Couch RN 10/29/2024 12:37 PM Signed [employer] message sent to Pt. Radha Holt RN Allergies As of Date: 10/29/2024 Noted Allergy Reaction DEPAKOTE (DIVALPROEX) 07/23/2021 14 - Other: See Comments Comments: Abnormal LFTs Date Reviewed: 09/15/2024 Reviewed by: Ariel Gutierrez APRN.MEDICAL OFFICE COORDINATOR - Fully Assessed Prescriptions as of 10/29/2024 - levETIRAcetam (KEPPRA) 1,000 mg tablet Take 2.5 tablets by mouth two times a day. - medroxyPROGESTERone (DEPO-PROVERA) 150 mg/mL Inject 1 mL intramuscularly every 12 weeks. - lacosamide (VIMPAT) 150 mg tab Take 2 tablets by mouth two times a day for 180 days. - clonazePAM (KLONOPIN) 0.5 mg tablet Take 1 tablet by mouth three times a day for 180 days. - ethosuximide (ZARONTIN) 250 mg capsule Take 1 capsule by mouth two times a day. - perampanel (FYCOMPA) 4 mg tablet Take 1 tablet by mouth daily at bedtime for 180 days. - cloBAZam (ONFI) 10 mg tab tablet Take 2 tablets by mouth two times a day for 180 days. - zonisamide (ZONEGRAN) 100 mg capsule Take 3 capsules by mouth two times a day. - folic acid 1 mg tablet Take 2 tablets by mouth twice daily. Facility-Administered Medications as of 10/29/2024 - medroxyPROGESTERone 150 mg injection (DEPO-PROVERA) - medroxyPROGESTERone 150 mg injection (DEPO-PROVERA) Problem List As Of Date 10/29/2024 Noted Resolved Breakthrough seizure (HCC) [G40.919] 10/06/2008 ADD (attention deficit disorder) [F98.8] 12/14/2009 09/03/2022 S/P placement of VNS (vagus nerve stimulation) *03/09/2021 Generalized epilepsy (HCC) [G40.309] 07/23/2021 09/03/2022 Nicotine use disorder, F17.2 [F17.200] 07/24/2021 08/27/2022 Supervision of high risk , antepartum *02/12/2022 09/03/2022 related nausea, antepartum [O26.899, *02/28/2022 09/03/2022 Patient request for diagnostic testing [Z01.89] 02/28/2022 08/27/2022 Vaginal bleeding in , second trimester*04/23/2022 08/27/2022 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] 04/23/2022 Anemia, antepartum, third trimester [O99.013] 07/30/2022 09/03/2022 Abnormal glucose complicating [O99.81*07/30/2022 Seizure (HCC) [R56.9] 09/03/2022 Fall from standing [W19.XXXA] 09/03/2022 Prematurity of fetus [P07.30] 09/03/2022 Encounter for induction of labor [Z34.90] 09/22/2022 09/28/2022 Polypharmacy [Z79.899] 01/23/2024 Encounter Status:Closed by RADHA HOLT on 10/29/24 [facility] 10-04-2024 SARAHN Telephone (OBGYWM) KIKI WARE ([id number]) 2 F Date Time Provider Department 10/04/24 ARIEL GUTIERREZ During your visit today, we recorded the following information about you: Sixto Espitia, TJ 10/04/2024 11:55 AM Signed Patient calling regarding depo injection. She hasn't restarted yet. She is very hesitant to start it back up again because she hasn't had menses since around January 2024. Last depo was given 05/13/24. Advised it can take a few months for menses to return to normal after stopping depo and that injection would have lasted through 08/05. She is not sexually active and possibly wants to not have any contraceptive for now, although mother is pushing for her to restart it d/t her epilepsy. Asking provider's opinion if she should restart and if not having menses yet is normal or if she should be concerned. TJ Heredia Emily, APRN.CNP 10/04/2024 12:03 PM Signed Normal for delayed return of menses after Depo discontinuation. Patient's choice if she wants to stay on contraception. Would recommend staying on contraception if sexually active. Should discuss epilepsy control with neurologist. Ariel Gutierrez APRN.CNP Allergies As of Date: 10/04/2024 Noted Allergy Reaction DEPAKOTE (DIVALPROEX) 07/23/2021 14 - Other: See Comments Comments: Abnormal LFTs Date Reviewed: 09/15/2024 Reviewed by: Ariel Gutierrez APRN.CNP - Fully Assessed Reason for Visit: Patient Question [1477] Prescriptions as of 10/04/2024 - levETIRAcetam (KEPPRA) 1,000 mg tablet Take 2.5 tablets by mouth two times a day. - medroxyPROGESTERone (DEPO-PROVERA) 150 mg/mL Inject 1 mL intramuscularly every 12 weeks. - lacosamide (VIMPAT) 150 mg tab Take 2 tablets by mouth two times a day for 180 days. - clonazePAM (KLONOPIN) 0.5 mg tablet Take 1 tablet by mouth three times a day for 180 days. - ethosuximide (ZARONTIN) 250 mg capsule Take 1 capsule by mouth two times a day. - perampanel (FYCOMPA) 4 mg tablet Take 1 tablet by mouth daily at bedtime for 180 days. - cloBAZam (ONFI) 10 mg tab tablet Take 2 tablets by mouth two times a day for 180 days. - zonisamide (ZONEGRAN) 100 mg capsule Take 3 capsules by mouth two times a day. - folic acid 1 mg tablet Take 2 tablets by mouth twice daily. Facility-Administered Medications as of 10/04/2024 - medroxyPROGESTERone 150 mg injection (DEPO-PROVERA) - medroxyPROGESTERone 150 mg injection (DEPO-PROVERA) Problem List As Of Date 10/04/2024 Noted Resolved Breakthrough seizure (HCC) [G40.919] 10/06/2008 ADD (attention deficit disorder) [F98.8] 12/14/2009 09/03/2022 S/P placement of VNS (vagus nerve stimulation) *03/09/2021 Generalized epilepsy (HCC) [G40.309] 07/23/2021 09/03/2022 Nicotine use disorder, F17.2 [F17.200] 07/24/2021 08/27/2022 Supervision of high risk , antepartum *02/12/2022 09/03/2022 related nausea, antepartum [O26.899, *02/28/2022 09/03/2022 Patient request for diagnostic testing [Z01.89] 02/28/2022 08/27/2022 Vaginal bleeding in , second trimester*04/23/2022 08/27/2022 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] 04/23/2022 Anemia, antepartum, third trimester [O99.013] 07/30/2022 09/03/2022 Abnormal glucose complicating [O99.81*07/30/2022 Seizure (HCC) [R56.9] 09/03/2022 Fall from standing [W19.XXXA] 09/03/2022 Prematurity of fetus [P07.30] 09/03/2022 Encounter for induction of labor [Z34.90] 09/22/2022 09/28/2022 Polypharmacy [Z79.899] 01/23/2024 Encounter Status:Closed by SIXTO ESPITIA on 10/04/24 [facility] 09-20-2024 CNPN Telephone (OBGYWM) KIKI WARE ([id number]) 2 F Date Time Provider Department 09/20/24 ARIEL GUTIERREZ During your visit today, we recorded the following information about you: Sixto Espitia, TJ 09/20/2024 10:20 AM Signed Patient changed her mind and does not want Nexplanon. Wants to go back on depo injection. Please file. Scheduled nurse visit. Sixto Espitia RN Allergies As of Date: 09/20/2024 Noted Allergy Reaction DEPAKOTE (DIVALPROEX) 07/23/2021 14 - Other: See Comments Comments: Abnormal LFTs Date Reviewed: 09/15/2024 Reviewed by: Ariel Gutierrez APRN.MEDICAL OFFICE COORDINATOR - Fully Assessed Reason for Visit: Orders [681] Primary Visit Diagnosis:Encounter for management and injection of depo-Provera [Z30.42] Order(s):medroxyPROGE STERone (DEPO-PROVERA) 150 mg/mLInject 1 mL intramuscularly every 12 weeks.Disp: 1 mLRfl: 3 [START ON 09/28/2024] medroxyPROGESTERone 150 mg injection (DEPO-PROVERA)Disp: Rfl: Prescriptions as of 09/20/2024 - medroxyPROGESTERone (DEPO-PROVERA) 150 mg/mL Inject 1 mL intramuscularly every 12 weeks. - lacosamide (VIMPAT) 150 mg tab Take 2 tablets by mouth two times a day for 180 days. - clonazePAM (KLONOPIN) 0.5 mg tablet Take 1 tablet by mouth three times a day for 180 days. - ethosuximide (ZARONTIN) 250 mg capsule Take 1 capsule by mouth two times a day. - levETIRAcetam (KEPPRA) 1,000 mg tablet Take 3 tablets by mouth two times a day. - perampanel (FYCOMPA) 4 mg tablet Take 1 tablet by mouth daily at bedtime for 180 days. - cloBAZam (ONFI) 10 mg tab tablet Take 2 tablets by mouth two times a day for 180 days. - zonisamide (ZONEGRAN) 100 mg capsule Take 3 capsules by mouth two times a day. - folic acid 1 mg tablet Take 2 tablets by mouth twice daily. Facility-Administered Medications as of 09/20/2024 - medroxyPROGESTERone 150 mg injection (DEPO-PROVERA) - medroxyPROGESTERone 150 mg injection (DEPO-PROVERA) Problem List As Of Date 09/20/2024 Noted Resolved Breakthrough seizure (HCC) [G40.919] 10/06/2008 ADD (attention deficit disorder) [F98.8] 12/14/2009 09/03/2022 S/P placement of VNS (vagus nerve stimulation) *03/09/2021 Generalized epilepsy (HCC) [G40.309] 07/23/2021 09/03/2022 Nicotine use disorder, F17.2 [F17.200] 07/24/2021 08/27/2022 Supervision of high risk , antepartum *02/12/2022 09/03/2022 related nausea, antepartum [O26.899, *02/28/2022 09/03/2022 Patient request for diagnostic testing [Z01.89] 02/28/2022 08/27/2022 Vaginal bleeding in , second trimester*04/23/2022 08/27/2022 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] 04/23/2022 Anemia, antepartum, third trimester [O99.013] 07/30/2022 09/03/2022 Abnormal glucose complicating [O99.81*07/30/2022 Seizure (HCC) [R56.9] 09/03/2022 Fall from standing [W19.XXXA] 09/03/2022 Prematurity of fetus [P07.30] 09/03/2022 Encounter for induction of labor [Z34.90] 09/22/2022 09/28/2022 Polypharmacy [Z79.899] 01/23/2024 Prescriptions ordered this encounter Disp Refills Start End MEDROXYPROGESTERONE 150 MG/ML INTRAM* 1 mL 3 09/20/2024 Route: INTRAMUSCULA Sig: Inject 1 mL intramuscularly every 12 weeks. MEDROXYPROGESTERONE 150 MG/ML INTRAM* 09/28/2024 08/30/2025 Route: INTRAMUSCULA Encounter Status:Closed by SIXTO ESPITIA on 09/20/24 [facility] 09-16-2024 CNPN Telephone (OBGYWM) KIKI AWRE ([id number]) 2 F Date Time Provider Department 09/16/24 ARIEL GUTIERREZ OBGYWM During your visit today, we recorded the following information about you: Sixto Espitia RN 09/16/2024 3:37 PM Signed Patient called in and decided she wants to proceed with Nexplanon insertion. Scheduled for 09/22. Please file order to attach to appt. Sixto Espitia RN Allergies As of Date: 09/16/2024 Noted Allergy Reaction DEPAKOTE (DIVALPROEX) 07/23/2021 14 - Other: See Comments Comments: Abnormal LFTs Date Reviewed: 09/15/2024 Reviewed by: Ariel Gutierrez APRN.MEDICAL OFFICE COORDINATOR - Fully Assessed Reason for Visit: Orders [681] Primary Visit Diagnosis:Encounter for contraceptive management, unspecified type [Z30.9] Other Visit Diagnosis:Nexplanon insertion [Z30.017] Order(s):NEXPLANON INSERTION [[id number]] Order #: [id number] Prescriptions as of 09/16/2024 - lacosamide (VIMPAT) 150 mg tab Take 2 tablets by mouth two times a day for 180 days. - clonazePAM (KLONOPIN) 0.5 mg tablet Take 1 tablet by mouth three times a day for 180 days. - ethosuximide (ZARONTIN) 250 mg capsule Take 1 capsule by mouth two times a day. - levETIRAcetam (KEPPRA) 1,000 mg tablet Take 3 tablets by mouth two times a day. - perampanel (FYCOMPA) 4 mg tablet Take 1 tablet by mouth daily at bedtime for 180 days. - cloBAZam (ONFI) 10 mg tab tablet Take 2 tablets by mouth two times a day for 180 days. - zonisamide (ZONEGRAN) 100 mg capsule Take 3 capsules by mouth two times a day. - folic acid 1 mg tablet Take 2 tablets by mouth twice daily. Facility-Administered Medications as of 09/16/2024 - medroxyPROGESTERone 150 mg injection (DEPO-PROVERA) Problem List As Of Date 09/16/2024 Noted Resolved Breakthrough seizure (HCC) [G40.919] 10/06/2008 ADD (attention deficit disorder) [F98.8] 12/14/2009 09/03/2022 S/P placement of VNS (vagus nerve stimulation) *03/09/2021 Generalized epilepsy (HCC) [G40.309] 07/23/2021 09/03/2022 Nicotine use disorder, F17.2 [F17.200] 07/24/2021 08/27/2022 Supervision of high risk , antepartum *02/12/2022 09/03/2022 related nausea, antepartum [O26.899, *02/28/2022 09/03/2022 Patient request for diagnostic testing [Z01.89] 02/28/2022 08/27/2022 Vaginal bleeding in , second trimester*04/23/2022 08/27/2022 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] 04/23/2022 Anemia, antepartum, third trimester [O99.013] 07/30/2022 09/03/2022 Abnormal glucose complicating [O99.81*07/30/2022 Seizure (HCC) [R56.9] 09/03/2022 Fall from standing [W19.XXXA] 09/03/2022 Prematurity of fetus [P07.30] 09/03/2022 Encounter for induction of labor [Z34.90] 09/22/2022 09/28/2022 Polypharmacy [Z79.899] 01/23/2024 Encounter Status:Closed by SIXTO ESPITIA on 09/16/24 Normal [facility] B-HCG SerPl-aCncon 5 HCG.beta subunit Qn m[IU]/mL Normal <5.0 [facility] Comment on above: Order Comment: Speci men Type: BLOOD SPECIMENOrdering Facility: [facility] Address: [address] [place] [address] Result Comment: Didi diamondsuresh Performed By: #### 2 1198-7 ####[facility] LABCLIA [id number] [place] [address] [place] CBC W Auto Differential pane l (Bld)on 09-15-2024 Basophils (Bld) [#/Vol] 0.06 10*3/uL Normal <0.11 [facility] Comment on above: Order Comment: Speci men Type: BLOOD SPECIMENOrdering Facility: [facility] Address: [address] [place] [address] Performed By: #### 5 7021-8 ####[facility] LABCLIA [id number] [place] [address] [place] Basophils/100 WBC (Bld) 0.8 % Normal [facility] Comment on above: Order Comment: Speci men Type: BLOOD SPECIMENOrdering Facility: [facility] Address: [address] [place] [address] Performed By: #### 5 7021-8 ####[facility] LABCLIA [id number] [place] [address] [place] Differential cell count method Nom (Bld) Auto Normal [facility] Comment on above: Order Comment: Speci men Type: BLOOD SPECIMENOrdering Facility: [facility] Address: [address] [place] [address] Performed By: #### 5 7021-8 ####[facility] LABCLIA [id number] [place] [address] [place] Eosinophils (Bld) [#/Vol] 0.10 10*3/uL Normal <0.46 [facility] Comment on above: Order Comment: Speci men Type: BLOOD SPECIMENOrdering Facility: [facility] Address: [address] [place] [address] Performed By: #### 5 7021-8 ####[facility] LABCLIA [id number] [place] [address] [place] Eosinophils/100 WBC (Bld) 1.3 % Normal [facility] Comment on above: Order Comment: Speci men Type: BLOOD SPECIMENOrdering Facility: [facility] Address: [address] [place] [address] Performed By: #### 5 7021-8 ####[facility] LABCLIA [id number] [place] [address] [place] Erythrocyte distribution width (RBC) [Ratio] 14.2 % Normal 11.5-15.0 [facility] Comment on above: Order Comment: Speci men Type: BLOOD SPECIMENOrdering Facility: [facility] Address: [address] [place] [address] Performed By: #### 5 7021-8 ####[facility] LABCLIA [id number] [place] [address] [place] Hematocrit (Bld) [Volume fraction] 43.9 % Normal 36.0-46.0 [facility] Comment on above: Order Comment: Speci men Type: BLOOD SPECIMENOrdering Facility: [facility] Address: [address] [place] [address] Performed By: #### 5 7021-8 ####[facility] LABCLIA [id number] [place] [address] [place] Hemoglobin (Bld) [Mass/Vol] 14.1 g/dL Normal 11.5-15.5 [facility] Comment on above: Order Comment: Speci men Type: BLOOD SPECIMENOrdering Facility: [facility] Address: [address] [place] [address] Performed By: #### 5 7021-8 ####[facility] LABCLIA [id number] [place] [id number] [place] Immature granulocytes (Bld) [#/Vol] 0.03 10*3/uL Normal <0.10 [facility] Comment on above: Order Comment: Speci men Type: BLOOD SPECIMENOrdering Facility: [facility] Address: [address] [place] [address] Performed By: #### 5 7021-8 ####[facility] LABCLIA [id number] [place] [address] [place] Immature granulocytes/100 WBC (Bld) 0.4 % Normal [facility] Comment on above: Order Comment: Speci men Type: BLOOD SPECIMENOrdering Facility: [facility] Address: [address] [place] [address] Performed By: #### 5 7021-8 ####[facility] LABIA [id number] [place] [address] [place] Lymphocytes (Bld) [#/Vol] 2.19 10*3/uL Normal 1.00-4.00 [facility] Comment on above: Order Comment: Speci men Type: BLOOD SPECIMENOrdering Facility: [facility] Address: [address] [place] [address] Performed By: #### 5 7021-8 ####[facility] LABIA [id number] [address] [place] Lymphocytes/100 WBC (Bld) 29.3 % Normal [facility] Comment on above: Order Comment: Speci men Type: BLOOD SPECIMENOrdering Facility: [facility] Address: [address] [place] [address] Performed By: #### 5 7021-8 ####[facility] LABIA [id number] [place] [id number] [place] MCH (RBC) [Entitic mass] 29.4 pg Normal 26.0-34.0 [facility] Comment on above: Order Comment: Speci men Type: BLOOD SPECIMENOrdering Facility: [facility] Address: [address] [place] [address] Performed By: #### 5 7021-8 ####[facility] LABCLIA [id number] [place] [address] [place] MCHC (RBC) [Mass/Vol] 32.1 g/dL Normal 30.5-36.[address] [facility] Comment on above: Order Comment: Speci men Type: BLOOD SPECIMENOrdering Facility: [facility] Address: [address] [place] [address] Performed By: #### 5 7021-8 ####[facility] LABCLIA [id number] [place] [address] [place] MCV (RBC) [Entitic vol] 91.5 fL Normal 80.0-100.0 [facility] Comment on above: Order Comment: Speci men Type: BLOOD SPECIMENOrdering Facility: [facility] Address: [address] [place] [address] Performed By: #### 5 7021-8 ####[facility] LABIA [id number] [place] [address] [place] Monocytes (Bld) [#/Vol] 0.49 10*3/uL Normal <0.87 [facility] Comment on above: Order Comment: Speci men Type: BLOOD SPECIMENOrdering Facility: [facility] Address: [address] [place] [address] Performed By: #### 5 7021-8 ####[facility] LABCLIA [id number] [place] [address] [place] Monocytes/100 WBC (Bld) 6.6 % Normal [facility] Comment on above: Order Comment: Speci men Type: BLOOD SPECIMENOrdering Facility: [facility] Address: [address] [place] [address] Performed By: #### 5 7021-8 ####[facility] LABCLIA [id number] [place] [address] [place] Neutrophils (Bld) [#/Vol] 4.60 10*3/uL Normal 1.45-7.50 [facility] Comment on above: Order Comment: Speci men Type: BLOOD SPECIMENOrdering Facility: [facility] Address: [address] [place] [address] Performed By: #### 5 7021-8 ####[facility] LABCLIA [id number] [place] [address] [place] Neutrophils/100 WBC (Bld) 61.6 % Normal [facility] Comment on above: Order Comment: Speci men Type: BLOOD SPECIMENOrdering Facility: [facility] Address: [address] [place] [address] Performed By: #### 5 7021-8 ####[facility] LABCLIA [id number] [place] [address] [place] Nucleated RBC (Bld) [#/Vol] 10*3/uL Normal <0.01 [facility] Comment on above: Order Comment: Speci men Type: BLOOD SPECIMENOrdering Facility: [facility] Address: [address] [place] [address] Performed By: #### 5 7021-8 ####[facility] LABIA [id number] [place] [address] [place] Nucleated RBC/100 WBC (Bld) [Ratio] 0.0 /100 WBC Normal [facility] Comment on above: Order Comment: Speci men Type: BLOOD SPECIMENOrdering Facility: [facility] Address: [address] [place] [address] Performed By: #### 5 7021-8 ####[facility] LABCLIA [id number] [place] [address] [place] Platelet mean volume (Bld) [Entitic vol] 11.6 fL Normal 9.0-12.7 [facility] Comment on above: Order Comment: Speci men Type: BLOOD SPECIMENOrdering Facility: [facility] Address: [address] [place] [address] Performed By: #### 5 7021-8 ####[facility] LABCLIA [id number] [address] [address] [place] Platelets (Bld) [#/Vol] 257 10*3/uL Normal 150-400 [facility] Comment on above: Order Comment: Speci men Type: BLOOD SPECIMENOrdering Facility: [facility] Address: [address] [place] [address] Performed By: #### 5 7021-8 ####[facility] LABCLIA [id number] [address] [address] [place] RBC (Bld) [#/Vol] 4.80 10*6/uL Normal 3.90-5.20 [facility] Comment on above: Order Comment: Speci men Type: BLOOD SPECIMENOrdering Facility: [facility] Address: [address] [place] [address] Performed By: #### 5 7021-8 ####[facility] LABCLIA [id number] [address] [address] [place] WBC (Bld) [#/Vol] 7.47 10*3/uL Normal 3.70-11.00 [facility] Comment on above: Order Comment: Speci men Type: BLOOD SPECIMENOrdering Facility: [facility] Address: [address] [place] [address] Performed By: #### 5 7021-8 ####[facility] LABCLIA [id number] [place] [id number] [place] CLOBAZAMon 09-15-2024 CLOBAZAM 364.0 ng/mL High 30-300 [facility] Comment on above: Order Comment: Speci men Type: BLOOD SPECIMENOrdering Facility: [facility] Address: [address] [place] [address] Performed By: #### C LOBAZ ####[facility] LABCLIA [id number] [place] [address] DESMETHYLCLOBAZAM 3120.0 ng/mL High 300-3000 [facility] Comment on above: Order Comment: Speci men Type: BLOOD SPECIMENOrdering Facility: [facility] Address: [address], [place] [address] Result Comment: ADDITIONAL INFORMATION This test was developed and its performance characteristics determined by [facility] in a manner consistent with CLIA requirements. This test has not been cleared or approved by the U.S. Food and Drug Administration. Test Performed by: [facility] [address] [place] [address] Head Of Academic Technology: Magnolia Nelson Ph.D.; CLIA# [id number] Performed By: #### C SILVIA ####[facility] LABCLIA [id number] [place] [address] CNOVon 09-15-2024 CNOV Office Visit (OBGYWM ) KIKI WARE ([id number]) 2 F Date Time Provider Department 09/15/24 1:30 PM ARIEL GUTIERREZ During your visit today, we recorded the following information about you: Blood pressure Weight Height 112/60 93 kg 1.575 m Ariel Gutierrez APRN.MEDICAL OFFICE COORDINATOR 09/15/2024 1:36 PM Signed Kiki Ware is a 23 year old female who presents for problem visit of contraception. HPI: Kiki is here to discuss contraception. Currently on Depo. Last dose 05/13/24. History of epilepsy - follows with neurology. Concerned about return of fertility with Depo. Was using Depo for seizure control. Reports her mom and neurologist want her to stay on Depo, but she is not sure. Has tried Depo, OCP, and Nexplanon in the past. Wondering if she is . 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 old PAST SURGICAL HISTORY Procedure Laterality Date DELIVERY ONLY 09/24/2022 [facility] PAST SURGICAL HISTORY OF VNS implant, vagal nerve stimulator- approx in 2016 FAMILY HISTORY Problem Relation Age of Onset No Known Problems Father Thyroid Cancer Mother No Known Problems Brother Asthma Brother outgrown asthma Allergies Brother other (drug overdose) Brother other (MVA) Brother Allergies Brother No Known Problems Sister other (retina cancer) Maternal Grandfather Uterine Cancer Maternal Grandmother No Known Problems Paternal Grandfather COPD Paternal Grandmother Diabetes Maternal Aunt Social History Tobacco Use Smoking status: Never Passive exposure: Current Smokeless tobacco: Never Tobacco comments: smoking outside per mom Vaping Use Vaping status: Never Used Substance Use Topics Alcohol use: Not Currently Drug use: Not Currently Types: Marijuana Current Outpatient Medications Medication Sig lacosamide (VIMPAT) 150 mg tab Take 2 tablets by mouth two times a day for 180 days. clonazePAM (KLONOPIN) 0.5 mg tablet Take 1 tablet by mouth three times a day for 180 days. ethosuximide (ZARONTIN) 250 mg capsule Take 1 capsule by mouth two times a day. levETIRAcetam (KEPPRA) 1,000 mg tablet Take 3 tablets by mouth two times a day. perampanel (FYCOMPA) 4 mg tablet Take 1 tablet by mouth daily at bedtime for 180 days. cloBAZam (ONFI) 10 mg tab tablet Take 2 tablets by mouth two times a day for 180 days. zonisamide (ZONEGRAN) 100 mg capsule Take 3 capsules by mouth two times a day. folic acid 1 mg tablet Take 2 tablets by mouth twice daily. Current Facility-Administered Medications Medication Dose Route Frequency medroxyPROGESTERone 150 mg injection (DEPO-PROVERA) 150 mg INTRAMUSCULAR every 12 weeks Allergies As of Date: 09/15/2024 Allergen Noted Reaction DEPAKOTE [DIVALPROEX] 07/23/2021 Other: See Comments Fully Assessed 09/15/2024 REVIEW OF SYSTEMS Expanded ROS: JOURNEYMAN PLUMBER: + amenorrhea Allergies and current medication updated:Yes SENSITIVE EXAM: Sensitive exam not performed. EXAM: BP 112/60 Ht 5' 2 (1.58m) Wt 205 lb (93.0kg) BMI 37.49 kg/(m2). GENERAL: pleasant, female in no apparent distress HEENT: Normocephalic, atraumatic, mucus membranes moist, and no lesions CHEST: Normal inspiratory effort NEURO: alert and oriented x3,exam grossly non-focal EXTREMITIES: normal ASSESSMENT AND PLAN: 1. Encounter for other general counseling or advice on contraception - ICD9: V25.09, ICD10: Z30.09 (primary diagnosis) - Reviewed all forms of contraception, risks and benefits - Sunshyne undecided on method and wants to discuss with mother - Written info on all forms of contraception provided 2. Missed menses - ICD9: 626.4, ICD10: N92.6 - Likely experiencing amenorrhea from Depo admin - HCG QUANTITATIVE To notify with decision on contraception. Ariel Gutierrez APRN.CNP I spent a total of 20 minutes on the date of the service which included preparing to see the patient, [id number] patient care, completing clinical documentation, obtaining and/or reviewing separately obtained history, and counseling and educating the patient/family/caregi harry. Ariel Gutierrez APRN.CNP 09/15/2024 1:30 PM Signed Control Options control is a way for men and women to prevent . There are many different methods of control. By learning more about the options, you can decide which method is right for you and your (more content not included)... Normal [facility] Comprehensive metabolic 2000 panelon 09-15-2024 Albumin [Mass/Vol] 4.3 g/dL Normal 3.9-4.9 [facility] Comment on above: Order Comment: Speci men Type: BLOOD SPECIMENOrdering Facility: [facility] Address: [address] [place] [address] Performed By: #### 2 4323-8 ####[facility] LABCLIA [id number] [facility] [address] [place] [address] [place] ALP [Catalytic activity/Vol] 151 U/L High 34-123 [facility] Comment on above: Order Comment: Speci men Type: BLOOD SPECIMENOrdering Facility: [facility] Address: [address] [place] [address] Performed By: #### 2 4323-8 ####[facility] LABCLIA [id number] [facility] [address], [facility] [place] ALT [Catalytic activity/Vol] 27 U/L Normal 7-38 [facility] Comment on above: Order Comment: Speci men Type: BLOOD SPECIMENOrdering Facility: [facility] Address: [address] [place] [address] Performed By: #### 2 4323-8 ####[facility] LABCLIA [id number] [place] [id number] [place] Anion gap [Moles/Vol] 12 mmol/L Normal 8-[address] [facility] Comment on above: Order Comment: Speci men Type: BLOOD SPECIMENOrdering Facility: [facility] Address: [address] [place] [address] Performed By: #### 2 4323-8 ####[facility] LABCLIA [id number] [place] [id number] [place] AST [Catalytic activity/Vol] 18 U/L Normal 13-35 [facility] Comment on above: Order Comment: Speci men Type: BLOOD SPECIMENOrdering Facility: [facility] Address: [address] [place], [place] [address] Performed By: #### 2 4323-8 ####[facility] LABCLIA [id number] [address] [address] [place] Bilirubin [Mass/Vol] 0.2 mg/dL Normal 0.2-1.3 [facility] Comment on above: Order Comment: Speci men Type: BLOOD SPECIMENOrdering Facility: [facility] Address: [address] [place] [address] Performed By: #### 2 4323-8 ####[facility] LABCLIA [id number] [address] [address] [place] Calcium [Mass/Vol] 9.0 mg/dL Normal 8.5-10.2 [facility] Comment on above: Order Comment: Speci men Type: BLOOD SPECIMENOrdering Facility: [facility] Address: [address] [place] [address] Performed By: #### 2 4323-8 ####[facility] LABCLIA [id number] [place] [id number] [place] Chloride [Moles/Vol] 109 mmol/L High 98-107 [facility] Comment on above: Order Comment: Speci men Type: BLOOD SPECIMENOrdering Facility: [facility] Address: [address] [place] [address] Performed By: #### 2 4323-8 ####[facility] LABCLIA [id number] [place] [address] [place] CO2 [Moles/Vol] 18 mmol/L Low 22-30 [facility] Comment on above: Order Comment: Speci men Type: BLOOD SPECIMENOrdering Facility: [facility] Address: [address] [place] [address] Performed By: #### 2 4323-8 ####[facility] LABCLIA [id number] [place] [id number] [place] Creatinine [Mass/Vol] 0.76 mg/dL Normal 0.58-0.[address] [facility] Comment on above: Order Comment: Speci men Type: BLOOD SPECIMENOrdering Facility: [facility] Address: [address] [place], [place] [address] Performed By: #### 2 4323-8 ####[facility] LABCLIA [id number] [address] [address] [place] Creatinine and Glomerular filtration rate.predicted panel (S/P/Bld) 114 mL/min/1.73m??? Normal >=60 [facility] Comment on above: Order Comment: Prabha junior Type: BLOOD SPECIMENOrdering Facility: [facility] Address: [address] [place] [address] Result Comment: Dinora mated Glomerular Filtration Rate (eGFR) is calculated using the 2020 CKD-EPI creatinine equation. This equation utilizes serum creatinine, sex, and age as parameters. The creatinine assay has traceable calibration to isotope dilution-mass spectrometry. Refer to KDIGO guidelines for clinical interpretation. In patients with unstable renal function, e.g. those with acute kidney injury, the eGFR may not accurately reflect actual GFR. Performed By: #### 2 4323-8 ####[facility] LABIA [id number] [place] [id number] [place] Glucose [Mass/Vol] 77 mg/dL Normal 74-99 [facility] Comment on above: Order Comment: Prabha junior Type: BLOOD SPECIMENOrdering Facility: [facility] Address: [address] [place] [address] Result Comment: The [place] Diabetes Association (ADA) provides guidance for cutoff values for fasting glucose and random glucose. The ADA defines fasting as no caloric intake for at least 8 hours. Fasting plasma glucose results between 100 to 125 mg/dL indicate increased risk for diabetes (prediabetes). Fasting plasma glucose results greater than or equal to 126 mg/dL meet the criteria for diagnosis of diabetes. In the absence of unequivocal hyperglycemia, results should be confirmed by repeat testing. In a patient with classic symptoms of hyperglycemia or hyperglycemic crisis, random plasma glucose results greater than or equal to 200 mg/dL meet the criteria for diagnosis of diabetes. Reference: Standards of Medical Care in Diabetes 2016, [place] [employer] Association. Diabetes Care. 2016.39(Suppl 1). Performed By: #### 2 4323-8 ####[facility] LABIA [id number] [address] [address] [place] Potassium [Moles/Vol] 3.9 mmol/L Normal 3.7-5.[address] [facility] Comment on above: Order Comment: Speci men Type: BLOOD SPECIMENOrdering Facility: [facility] Address: [address] [place] [address] Performed By: #### 2 4323-8 ####[facility] LABCLIA [id number] [place] [address] [place] Protein [Mass/Vol] 7.3 g/dL Normal 6.3-8.0 [facility] Comment on above: Order Comment: Speci men Type: BLOOD SPECIMENOrdering Facility: [facility] Address: [address] [place] [address] Performed By: #### 2 4323-8 ####[facility] LABIA [id number] [place] [address] [place] Sodium [Moles/Vol] 139 mmol/L Normal 136-144 [facility] Comment on above: Order Comment: Speci men Type: BLOOD SPECIMENOrdering Facility: [facility] Address: [address] [place] [address] Performed By: #### 2 4323-8 ####[facility] LABCLIA [id number] [place] [address] [place] Urea nitrogen [Mass/Vol] 11 mg/dL Normal 7-21 [facility] Comment on above: Order Comment: Speci men Type: BLOOD SPECIMENOrdering Facility: [facility] Address: [address] [place] [address] Performed By: #### 2 4323-8 ####[facility] LABIA [id number] [place] [id number] [place] Ethosuximide SerPl-mCncon Ethosuximide [Mass/Vol] 37.9 ug/mL Low 40.0-100.0 [facility] Comment on above: Order Comment: Speci men Type: BLOOD SPECIMENOrdering Facility: [facility] Address: [address] [place] [address] Result Comment: This test was developed, and its performance characteristics determined by the [facility] Department of Pathology and Laboratory Medicine. It has not been cleared or approved by the FDA. The [facility] of Pathology and Laboratory Medicine is regulated under CLIA as qualified to perform high-complexity testing. This test is used for clinical purposes. It should not be regarded as investigational or for research. Performed By: #### 8 8895-8, 3616-0, 41717-5 ####[facility] LABIA [id number] [place] [address] [place] LACOSAMIDEon 09-15-2024 Lacosamide [Mass/Vol] 9.3 ug/mL Normal 2.2-19.[address] [facility] Comment on above: Order Comment: Speci men Type: BLOOD SPECIMENOrdering Facility: [facility] Address: [address] [place] [address] Result Comment: Expe cted concentration of patients receiving 200-400 mg/day is 2.2-19.8 ug/mL for Lacosamide. This test was developed, and its performance characteristics determined by the [facility] Department of Pathology and Laboratory Medicine. It has not been cleared or approved by the FDA. The [facility] of Pathology and Laboratory Medicine is regulated under CLIA as qualified to perform high-complexity testing. This test is used for clinical purposes. It should not be regarded as investigational or for research. Performed By: #### L ACOS ####[facility] LABCLIA [id number] [place] [id number] [place] Perampanel SerPl-mCncon - Perampanel [Mass/Vol] 0.30 ug/mL Normal 0.18-0.[address] [facility] Comment on above: Order Comment: Speci men Type: BLOOD SPECIMENOrdering Facility: [facility] Address: [address] [place] [address] Result Comment: This test was developed, and its performance characteristics determined by the [facility] Department of Pathology and Laboratory Medicine. It has not been cleared or approved by the FDA. The [facility] of Pathology and Laboratory Medicine is regulated under CLIA as qualified to perform high-complexity testing. This test is used for clinical purposes. It should not be regarded as investigational or for research. Performed By: #### 8 8895-8, 3616-0, 85800-8 ####[facility] LABIA [id number] [place] [id number] [place] Zonisamide SerPl-mCncon 04-1 Zonisamide [Mass/Vol] 29.8 ug/mL Normal 10.0-40.[address] [facility] Comment on above: Order Comment: Specmushtaq junior Type: BLOOD SPECIMENOrdering Facility: [facility] Address: [address] [place] [address] Result Comment: This test was developed, and its performance characteristics determined by the [facility] Department of Pathology and Laboratory Medicine. It has not been cleared or approved by the FDA. The [facility] Department of Pathology and Laboratory Medicine is regulated under CLIA as qualified to perform high-complexity testing. This test is used for clinical purposes. It should not be regarded as investigational or for research. Performed By: #### 8 8895-8, 36160, 44597-5 ####[facility] LABIA [id number] [place] [id number] [place] levETIRAcetam SerPl-mCncon 0 09-15-2024 levETIRAcetam [Mass/Vol] 37.6 ug/mL Normal 12.0-46.0 [facility] Comment on above: Order Comment: Speci sandi Type: BLOOD SPECIMENOrdering Facility: [facility] Address: [address] [place] [address] Result Comment: This test is not suitable for patients receiving treatment with the drug brivaracetam (Briviact). The drug causes an interference that may lead to falsely elevated levetiracetam results. Reference ranges and high/low indicator flags are provided as general guidelines only. The treating physician must determine appropriate target levels/dosing based on the specific clinical situation. This test was developed, and its performance characteristics determined by the [facility] Department of Pathology and Laboratory Medicine. It has not been cleared or approved by the FDA. The [facility] Department of Pathology and Laboratory Medicine is regulated under CLIA as qualified to perform high-complexity testing. This test is used for clinical purposes. It should not be regarded as investigational or for research. Performed By: #### 3 0471-7 ####[facility] LABCLIA [id number] [address] OF [facility] CNPNon 06-11-2024 CNPN Telephone (OBGYWM) KIKI WARE ([id number]) 2 F Date Time Provider Department 06/11/24 ARIEL GUTIERREZ During your visit today, we recorded the following information about you: Radha Holt RN 06/11/2024 1:05 PM Signed Pt calls in stating she needs checked. When asked what she would like checked for Pt states everything. States she just got out of a relationship. Also c/o vaginal bump that she would like checked out. Appt made with 06/17/24. Radha Holt RN Allergies As of Date: 06/11/2024 Noted Allergy Reaction DEPAKOTE (DIVALPROEX) 07/23/2021 14 - Other: See Comments Comments: Abnormal LFTs Date Reviewed: 05/13/2024 Reviewed by: Miranda Tadeo RN - Fully Assessed Prescriptions as of 06/11/2024 - perampanel (FYCOMPA) 4 mg tablet Take 1 tablet by mouth daily at bedtime for 90 days. - medroxyPROGESTERone (DEPO-PROVERA) 150 mg/mL Inject 1 mL intramuscularly every 12 weeks. - norgestimate 0.25 mg-ethinyl estradiol 35 mcg (SPRINTEC) 0.25-35 mg-mcg per tablet Take 1 tablet by mouth once daily. - zonisamide (ZONEGRAN) 100 mg capsule Take 3 capsules by mouth two times a day. - clonazePAM (KLONOPIN) 0.5 mg tablet Take 1 tablet by mouth three times a day for 180 days. - ethosuximide (ZARONTIN) 250 mg capsule Take 1 capsule by mouth two times a day. - lacosamide (VIMPAT) 150 mg tab Take 2 tablets by mouth two times a day for 180 days. - levETIRAcetam (KEPPRA) 1,000 mg tablet Take 3 tablets by mouth two times a day. - cloBAZam (ONFI) 10 mg tab tablet Take 2 tablets by mouth two times a day for 180 days. - folic acid 1 mg tablet Take 2 tablets by mouth twice daily. Facility-Administered Medications as of 06/11/2024 - medroxyPROGESTERone 150 mg injection (DEPO-PROVERA) Problem List As Of Date 06/11/2024 Noted Resolved Breakthrough seizure (HCC) [G40.919] 10/06/2008 ADD (attention deficit disorder) [F98.8] 12/14/2009 09/03/2022 S/P placement of VNS (vagus nerve stimulation) *03/09/2021 Generalized epilepsy (HCC) [G40.309] 07/23/2021 09/03/2022 Nicotine use disorder, F17.2 [F17.200] 07/24/2021 08/27/2022 Supervision of high risk , antepartum *02/12/2022 09/03/2022 related nausea, antepartum [O26.899, *02/28/2022 09/03/2022 Patient request for diagnostic testing [Z01.89] 02/28/2022 08/27/2022 Obesity affecting , antepartum [O99.21*03/26/2022 Vaginal bleeding in , second trimester*04/23/2022 08/27/2022 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] 04/23/2022 Anemia, antepartum, third trimester [O99.013] 07/30/2022 09/03/2022 Abnormal glucose complicating [O99.81*07/30/2022 Seizure (HCC) [R56.9] 09/03/2022 Fall from standing [W19.XXXA] 09/03/2022 Prematurity of fetus [P07.30] 09/03/2022 Encounter for induction of labor [Z34.90] 09/22/2022 09/28/2022 state [Z39.2] 09/28/2022 Polypharmacy [Z79.899] 01/23/2024 Encounter Status:Closed by RADHA HOLT on 06/11/24 [facility] CNPMarybeth 05-19-2024 CNPN Telephone (OBGYWM) KIKI WARE ([id number]) 2 F Date Time Provider Department 05/19/24 ARIEL GUTIERREZ During your visit today, we recorded the following information about you: Nathaniel Mckinney RN 05/19/2024 11:39 AM Signed Patient called in wondering if Depoprovera is causing her seizures. States she was recently seen in [facility] for seizures. Per [employer] message 05/17 to Neurology patient had declined transfer to [facility]. Currently awaiting home EEG. I did discuss with patient that there was a study that Medroxyprogesterone acetate was added to the antiepileptic drug regimen of 14 women who had uncontrolled seizures. Of the 11 women who developed amenorrhea, 7 reported fewer seizures during MPA therapy. https://pubmed.ncbi.n lm.nih.gov/9381692/. I did recommend patient discuss all the medications she is taking with her neurologist. Patient states she can only name 1/2 the medications I am taking. I have advised patient to write down and carry with her a list of the medications she is on at all times. I also stated to her she should discuss these medications with her neurologist. Patient also states she is worried because she has been cramping and she hasn't had a period ever on Depo. I did discuss that bleeding can occur on Depo, especially after restarting med. Call only if further advice Ariel Gutierrez APRN.SARAH 05/19/2024 11:56 AM Signed Would recommend discussing seizures with neurologist. Ariel Gutierrez APRN.Radha Godinez RN 05/19/2024 4:13 PM Signed Pt notified and voiced understanding. TJ Weaver Margaret 05/20/2024 12:46 PM Signed 1st call attempt, left vm Wilmer Lemos 05/22/2024 9:46 AM Signed 2nd call attempt, left vm Allergies As of Date: 05/19/2024 Noted Allergy Reaction DEPAKOTE (DIVALPROEX) 07/23/2021 14 - Other: See Comments Comments: Abnormal LFTs Date Reviewed: 05/13/2024 Reviewed by: Miranda Tadeo RN - Fully Assessed Reason for Visit: Medication Question [1478] Prescriptions as of 05/22/2024 - perampanel (FYCOMPA) 4 mg tablet Take 1 tablet by mouth daily at bedtime for 90 days. - medroxyPROGESTERone (DEPO-PROVERA) 150 mg/mL Inject 1 mL intramuscularly every 12 weeks. - norgestimate 0.25 mg-ethinyl estradiol 35 mcg (SPRINTEC) 0.25-35 mg-mcg per tablet Take 1 tablet by mouth once daily. - zonisamide (ZONEGRAN) 100 mg capsule Take 3 capsules by mouth two times a day. - clonazePAM (KLONOPIN) 0.5 mg tablet Take 1 tablet by mouth three times a day for 180 days. - ethosuximide (ZARONTIN) 250 mg capsule Take 1 capsule by mouth two times a day. - lacosamide (VIMPAT) 150 mg tab Take 2 tablets by mouth two times a day for 180 days. - levETIRAcetam (KEPPRA) 1,000 mg tablet Take 3 tablets by mouth two times a day. - cloBAZam (ONFI) 10 mg tab tablet Take 2 tablets by mouth two times a day for 180 days. - folic acid 1 mg tablet Take 2 tablets by mouth twice daily. Facility-Administered Medications as of 05/22/2024 - medroxyPROGESTERone 150 mg injection (DEPO-PROVERA) Problem List As Of Date 05/19/2024 Noted Resolved Breakthrough seizure (HCC) [G40.919] 10/06/2008 ADD (attention deficit disorder) [F98.8] 12/14/2009 09/03/2022 S/P placement of VNS (vagus nerve stimulation) *03/09/2021 Generalized epilepsy (HCC) [G40.309] 07/23/2021 09/03/2022 Nicotine use disorder, F17.2 [F17.200] 07/24/2021 08/27/2022 Supervision of high risk , antepartum *02/12/2022 09/03/2022 related nausea, antepartum [O26.899, *02/28/2022 09/03/2022 Patient request for diagnostic testing [Z01.89] 02/28/2022 08/27/2022 Obesity affecting , antepartum [O99.21*03/26/2022 Vaginal bleeding in , second trimester*04/23/2022 08/27/2022 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] 04/23/2022 Anemia, antepartum, third trimester [O99.013] 07/30/2022 09/03/2022 Abnormal glucose complicating [O99.81*07/30/2022 Seizure (HCC) [R56.9] 09/03/2022 Fall from standing [W19.XXXA] 09/03/2022 Prematurity of fetus [P07.30] 09/03/2022 Encounter for induction of labor [Z34.90] 09/22/2022 09/28/2022 state [Z39.2] 09/28/2022 Polypharmacy [Z79.899] 01/23/2024 Encounter Status:Closed by RADHA HOLT on 05/19/24 [facility] Telephone (NIQ) KIKI WARE ([id number]) 2 F Date Time Provider Department 05/19/24 RUBEN TELLEZ During your visit today, we recorded the following information about you: Lenny Merlos 05/19/2024 10:51 AM Signed AEEG orders were sent to [facility]. Devynedgard Merlos Allergies As of Date: 05/19/2024 Noted Allergy Reaction DEPAKOTE (DIVALPROEX) 07/23/2021 14 - Other: See Comments Comments: Abnormal LFTs Date Reviewed: 05/13/2024 Reviewed by: Miranda Tadeo RN - Fully Assessed Reason for Visit: Orders [681] Cmt: [facility] Prescriptions as of 05/19/2024 - perampanel (FYCOMPA) 4 mg tablet Take 1 tablet by mouth daily at bedtime for 90 days. - medroxyPROGESTERone (DEPO-PROVERA) 150 mg/mL Inject 1 mL intramuscularly every 12 weeks. - norgestimate 0.25 mg-ethinyl estradiol 35 mcg (SPRINTEC) 0.25-35 mg-mcg per tablet Take 1 tablet by mouth once daily. - zonisamide (ZONEGRAN) 100 mg capsule Take 3 capsules by mouth two times a day. - clonazePAM (KLONOPIN) 0.5 mg tablet Take 1 tablet by mouth three times a day for 180 days. - ethosuximide (ZARONTIN) 250 mg capsule Take 1 capsule by mouth two times a day. - lacosamide (VIMPAT) 150 mg tab Take 2 tablets by mouth two times a day for 180 days. - levETIRAcetam (KEPPRA) 1,000 mg tablet Take 3 tablets by mouth two times a day. - cloBAZam (ONFI) 10 mg tab tablet Take 2 tablets by mouth two times a day for 180 days. - folic acid 1 mg tablet Take 2 tablets by mouth twice daily. Facility-Administered Medications as of 05/19/2024 - medroxyPROGESTERone 150 mg injection (DEPO-PROVERA) Problem List As Of Date 05/19/2024 Noted Resolved Breakthrough seizure (HCC) [G40.919] 10/06/2008 ADD (attention deficit disorder) [F98.8] 12/14/2009 09/03/2022 S/P placement of VNS (vagus nerve stimulation) *03/09/2021 Generalized epilepsy (HCC) [G40.309] 07/23/2021 09/03/2022 Nicotine use disorder, F17.2 [F17.200] 07/24/2021 08/27/2022 Supervision of high risk , antepartum *02/12/2022 09/03/2022 related nausea, antepartum [O26.899, *02/28/2022 09/03/2022 Patient request for diagnostic testing [Z01.89] 02/28/2022 08/27/2022 Obesity affecting , antepartum [O99.21*03/26/2022 Vaginal bleeding in , second trimester*04/23/2022 08/27/2022 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] 04/23/2022 Anemia, antepartum, third trimester [O99.013] 07/30/2022 09/03/2022 Abnormal glucose complicating [O99.81*07/30/2022 Seizure (HCC) [R56.9] 09/03/2022 Fall from standing [W19.XXXA] 09/03/2022 Prematurity of fetus [P07.30] 09/03/2022 Encounter for induction of labor [Z34.90] 09/22/2022 09/28/2022 state [Z39.2] 09/28/2022 Polypharmacy [Z79.899] 01/23/2024 Encounter Status:Closed by LENNY MERLOS on 05/19/24 Normal [facility] .Auto Diffon 05-18-2024 Basophil, Absolute 0.1 10 3/mcL Normal 0.0-0.2 [facility] Comment on above: Performed By: #### M DW, GFR, CBC, BMP, ANEU, ADIFF #### [place] [id number] [place], [place] [address] Basophils/100 WBC (Bld) 1.0 % Normal 0.0-2.5 [facility] Comment on above: Performed By: #### M DW, GFR, CBC, BMP, ANEU, ADIFF #### [address] [address] Eosinophil, Absolute 0.2 10 3/mcL Normal 0.0-0.7 [facility] Comment on above: Performed By: #### M DW, GFR, CBC, BMP, ANEU, ADIFF #### [address] [address] Eosinophils/100 WBC (Bld) 1.6 % Normal 0.0-7.0 [facility] Comment on above: Performed By: #### M DW, GFR, CBC, BMP, ANEU, ADIFF #### [address] [address] Lymphocyte, Absolute 3.0 10 3/mcL Normal 0.9-4.3 [facility] Comment on above: Performed By: #### M DW, GFR, CBC, BMP, ANEU, ADIFF #### [address] [address] Lymphocytes/100 WBC (Bld) 30.2 % Normal 20.0-40.0 [facility] Comment on above: Performed By: #### M DW, GFR, CBC, BMP, ANEU, ADIFF #### [address] [address] Monocyte, Absolute 0.6 10 3/mcL Normal 0.1-1.4 [facility] Comment on above: Performed By: #### M DW, GFR, CBC, BMP, ANEU, ADIFF #### [address] [address] Monocytes/100 WBC (Bld) 5.9 % Normal 2.0-13.0 [facility] Comment on above: Performed By: #### M DW, GFR, CBC, BMP, ANEU, ADIFF #### [address] [address] Neutrophils/100 WBC (Bld) 61.3 % Normal 50.0-75.0 [facility] Comment on above: Performed By: #### M DW, GFR, CBC, BMP, ANEU, ADIFF #### [address] [address] .GFRon 05-18-2024 GFR 104 ml/min/1.73sqm Normal [facility] Comment on above: Result Comment: GFR Population mean for , Non- Americans Ages 20-29 = 116 mL/min/1.73 sq.m. Ages 30-39 = 107 mL/min/1.73 sq.m. Ages 40-49 = 99 mL/min/1.73 sq.m. Ages 50-59 = 93 mL/min/1.73 sq.m. Ages 60-69 = 85 mL/min/1.73 sq.m. Ages 70+ = 75 mL/min/1.73 sq.m. Chronic Kidney Disease: Less than 60 mL/min/1.73 square meters End Stage Renal Disease: Less than 15 mL/min/1.73 square meters Performed By: #### M DW, GFR, CBC, BMP, ANEU, ADIFF #### [address] [address] GFR Non- 86 ml/min/1.73sqm Normal [facility] Comment on above: Result Comment: GFR Population mean for , Non- Americans Ages 20-29 = 116 mL/min/1.73 sq.m. Ages 30-39 = 107 mL/min/1.73 sq.m. Ages 40-49 = 99 mL/min/1.73 sq.m. Ages 50-59 = 93 mL/min/1.73 sq.m. Ages 60-69 = 85 mL/min/1.73 sq.m. Ages 70+ = 75 mL/min/1.73 sq.m. Chronic Kidney Disease: Less than 60 mL/min/1.73 square meters End Stage Renal Disease: Less than 15 mL/min/1.73 square meters Performed By: #### M DW, GFR, CBC, BMP, ANEU, ADIFF #### [address] [address] .MDWon 05-18-2024 Monocyte Distribution Width 18.26 Normal 0.00-20.00 [facility] Comment on above: Result Comment: For ED adult patients suspected of sepsis, MDW<=20.0 does not rule out sepsis or risk of sepsis Performed By: #### M DW, GFR, CBC, BMP, ANEU, ADIFF #### [place] [address] .NEUABSon 05-18-2024 Neutrophil, Absolute 6.1 10 3/mcL Normal 2.3-8.1 [facility] Comment on above: Performed By: #### M DW, GFR, CBC, BMP, ANEU, ADIFF #### [place] [address] .Urinalysis Microscopic (AO) on 05-18-2024 UA Amorphus 2+ /hpf Normal [facility] Comment on above: Performed By: #### U A, UAMICAO, PREGU #### [place] [address] UA RBC None Seen Normal None Seen [facility] Comment on above: Performed By: #### U A, UAMICAO, PREGU #### [place] [address] UA Squam Epithelial 0-5 Abnormal None Seen [facility] Comment on above: Performed By: #### U A, UAMICAO, PREGU #### [place] [address] UA WBC 5-10 Abnormal None Seen [facility] Comment on above: Performed By: #### U A, UAMICAO, PREGU #### [place] [address] BMPon 05-18-2024 BUN/Creatinine Ratio 11 ratio Normal 7-27 [facility] Comment on above: Performed By: #### M DW, GFR, CBC, BMP, ANEU, ADIFF #### [place] [address] Calcium [Mass/Vol] 8.9 mg/dL Normal 8.4-10.2 [facility] Comment on above: Performed By: #### M DW, GFR, CBC, BMP, ANEU, ADIFF #### [address] [address] Chloride [Moles/Vol] 109 mmol/L High 98-107 [facility] Comment on above: Performed By: #### M DW, GFR, CBC, BMP, ANEU, ADIFF #### [address] [address] CO2 [Moles/Vol] 24 mmol/L Normal 22-29 [facility] Comment on above: Performed By: #### M DW, GFR, CBC, BMP, ANEU, ADIFF #### [address] [address] Creatinine [Mass/Vol] 0.83 mg/dL Normal 0.55-1.02 [facility] Comment on above: Result Comment: Test ing performed on Siemens Dimension EXL analyzer using a modified kinetic Chris technique. Performed By: #### M DW, GFR, CBC, BMP, ANEU, ADIFF #### [address] [address] Electrolyte Balance 13.0 mEq/L Normal 4.0-15.0 [facility] Comment on above: Performed By: #### M DW, GFR, CBC, BMP, ANEU, ADIFF #### [address] [address] Glucose [Mass/Vol] 94 mg/dL Normal 70-105 [facility] Comment on above: Performed By: #### M DW, GFR, CBC, BMP, ANEU, ADIFF #### [address] [address] Potassium [Moles/Vol] 3.8 mmol/L Normal 3.5-5.1 [facility] Comment on above: Performed By: #### M DW, GFR, CBC, BMP, ANEU, ADIFF #### [place] [id number] Sodium [Moles/Vol] 146 mmol/L High 136-145 [facility] Comment on above: Performed By: #### M DW, GFR, CBC, BMP, ANEU, ADIFF #### [place] [address] Urea nitrogen [Mass/Vol] 9 mg/dL Normal 7-18 [facility] Comment on above: Performed By: #### M DW, GFR, CBC, BMP, ANEU, ADIFF #### [place] [id number] CBCon 05-18-2024 Erythrocyte distribution width (RBC) [Ratio] 13.9 % Normal 11.5-15.5 [facility] Comment on above: Performed By: #### M DW, GFR, CBC, BMP, ANEU, ADIFF #### [place] [address] Hematocrit (Bld) [Volume fraction] 42.3 % Normal 34.0-46.0 [facility] Comment on above: Performed By: #### M DW, GFR, CBC, BMP, ANEU, ADIFF #### [place] [address] Hgb 14.4 G/dL Normal 12.0-16.0 [facility] Comment on above: Performed By: #### M DW, GFR, CBC, BMP, ANEU, ADIFF #### [place] [phone] MCH (RBC) [Entitic mass] 30.0 pg Normal 27.0-33.0 [facility] Comment on above: Performed By: #### M DW, GFR, CBC, BMP, ANEU, ADIFF #### [place] [address] MCHC 34.0 G/dL Normal 32.0-36.0 [facility] Comment on above: Performed By: #### M DW, GFR, CBC, BMP, ANEU, ADIFF #### [place] [address] MCV (RBC) [Entitic vol] 88.3 fL Normal 80.0-99.0 [facility] Comment on above: Performed By: #### M DW, GFR, CBC, BMP, ANEU, ADIFF #### [address] [address] Platelet 171 10 3/mcL Normal 150-450 [facility] Comment on above: Performed By: #### M DW, GFR, CBC, BMP, ANEU, ADIFF #### [address] [address] Platelet mean volume (Bld) [Entitic vol] 9.1 fL Normal 6.6-10.5 [facility] Comment on above: Performed By: #### M DW, GFR, CBC, BMP, ANEU, ADIFF #### [address] [address] RBC 4.79 10 6/mcL Normal 4.10-5.30 [facility] Comment on above: Performed By: #### M DW, GFR, CBC, BMP, ANEU, ADIFF #### [address] [address] WBC 9.9 10 3/mcL Normal 4.5-10.8 [facility] Comment on above: Performed By: #### M DW, GFR, CBC, BMP, ANEU, ADIFF #### [address] [address] [address] HEAD OR BRAIN W/O CONTRAS Ton 05-18-2024 CT HEAD OR BRAIN W/O CONTRAST ORIGINAL EXAMINATION: CT OF THE HEAD WITHOUT CONTRAST 05/18/2024 3:24 am TECHNIQUE: CT of the head was performed without the administration of intravenous contrast. Automated exposure control, iterative reconstruction, and/or weight based adjustment of the mA/kV was utilized to reduce the radiation dose to as low as reasonably achievable. COMPARISON: None. HISTORY: ORDERING SYSTEM PROVIDED HISTORY: Reason for Exam: seizures FINDINGS: BRAIN/VENTRICLES: There is no acute intracranial hemorrhage, mass effect or midline shift. No abnormal extra-axial fluid collection. The graham-white differentiation is maintained without evidence of an acute infarct. There is no evidence of hydrocephalus. ORBITS: The visualized portion of the orbits demonstrate no acute abnormality. SINUSES: The visualized paranasal sinuses and mastoid air cells demonstrate no acute abnormality. SOFT TISSUES/SKULL: No acute abnormality of the visualized skull or soft tissues. IMPRESSION: No acute intracranial abnormality. Interpreted by: Ranjeet Brown MD Preliminary Report By: Ranjeet Brown MD Electronically signed By Ranjeet Brown MD Dictated Date: 05/18/2024 3:35:08 AM Prelim Date: 05/18/2024 3:36:42 AM Sign Date: 05/18/2024 3:36:42 AM Ordering Provider: MONA Wang [facility] LABORATORYOrdered By: SYSTEM SYSTEM on 05-18-2024 Basophils (Bld) [#/Vol] 0.1 103/mcL Normal 0.0 - 0.2 10^3/mcL AO Workflow SS Basophils/100 WBC (Bld) 1.0 % Normal 0.0 - 2.5 % AO Workflow SS Calcium [Mass/Vol] 8.9 mg/dL Normal 8.4 - 10. 2 mg/dL AO ADM SS Chloride [Moles/Vol] 109 mmol/L High 98 - 107 mmol/L AO ADM SS CO2 [Moles/Vol] 24 mmol/L Normal 22 - 29 mmol/L AO AD M SS Creatinine [Mass/Vol] 0.83 mg/dL Normal 0.55 - 1.02 mg/dL AO ADM SS Comment on above: Interpretive Data: T esting performed on Siemens Dimension EXL analyzer using a modified kinetic Chris technique. Electrolyte Balance 13.0 mEq/L Normal 4.0 - 15 .0 mEq/L AO ADM SS Eosinophil, Absolute 0.2 103/mcL Normal 0.0 - 0 .7 10^3/mcL AO Workflow SS Eosinophils/100 WBC (Bld) 1.6 % Normal 0.0 - 7.0 % AO Workflow SS Erythrocyte distribution width (RBC) [Ratio] 13.9 % Normal 11.5 - 15.5 % AO Workflow SS GFR/1.73 sq M.predicted among blacks MDRD (S/P/Bld) [Vol rate/Area] 104 ml/min/1.73sqm Invalid Interpretation Code AO Chemistry S Comment on above: Interpretive Data: GFR Population mean for , Non- Americans Ages 20-29 = 116 mL/min/1.73 sq.m. Ages 30-39 = 107 mL/min/1.73 sq.m. Ages 40-49 = 99 mL/min/1.73 sq.m. Ages 50-59 = 93 mL/min/1.73 sq.m. Ages 60-69 = 85 mL/min/1.73 sq.m. Ages 70+ = 75 mL/min/1.73 sq.m. Chronic Kidney Disease: Less than 60 mL/min/1.73 square meters End Stage Renal Disease: Less than 15 mL/min/1.73 square meters GFR/1.73 sq M.predicted among non-blacks MDRD (S/P/Bld) [Vol rate/Area] 86 ml/min/1.73sqm Invalid Interpretation Code AO Chemistry S Comment on above: Interpretive Data: GFR Population mean for , Non- Americans Ages 20-29 = 116 mL/min/1.73 sq.m. Ages 30-39 = 107 mL/min/1.73 sq.m. Ages 40-49 = 99 mL/min/1.73 sq.m. Ages 50-59 = 93 mL/min/1.73 sq.m. Ages 60-69 = 85 mL/min/1.73 sq.m. Ages 70+ = 75 mL/min/1.73 sq.m. Chronic Kidney Disease: Less than 60 mL/min/1.73 square meters End Stage Renal Disease: Less than 15 mL/min/1.73 square meters Glucose [Mass/Vol] 94 mg/dL Normal 70 - 105 mg/dL AO ADM SS Hematocrit (Bld) [Volume fraction] 42.3 % Normal 34.0 - 46.0 % AO Workflow SS Hemoglobin (Bld) [Mass/Vol] 14.4 G/dL Normal 12.0 - 16.0 G/dL AO Workflow SS Lymphocytes (Bld) [#/Vol] 3.0 103/mcL Normal 0.9 - 4.3 10^3/mcL AO Workflow SS Lymphocytes/100 WBC (Bld) 30.2 % Normal 20.0 - 40.0 % AO Workflow SS MCH (RBC) [Entitic mass] 30.0 pg Normal 27.0 - 33.0 pg AO Workflow SS MCHC 34.0 G/dL Normal 32.0 - 36.0 G/dL AO Workflow SS MCV (RBC) [Entitic vol] 88.3 fL Normal 80.0 - 99.0 fL AO Workflow SS Monocyte distribution width Auto (Bld) [Entitic vol] 18.26 1 Normal 0.00 - 20.00 AO Workflow SS Comment on above: Result Comment: For ED adult patients suspected of sepsis, MDW<=20.0 does not rule out sepsis or risk of sepsis Monocytes (Bld) [#/Vol] 0.6 103/mcL Normal 0.1 - 1.4 10^3/mcL AO Workflow SS Monocytes/100 WBC (Bld) 5.9 % Normal 2.0 - 13.0 % AO Workflow SS Neutrophils (Bld) [#/Vol] 6.1 103/mcL Normal 2.3 - 8.1 10^3/mcL AO Workflow SS Neutrophils/100 WBC (Bld) 61.3 % Normal 50.0 - 75.0 % AO Workflow SS Platelet mean volume (Bld) [Entitic vol] 9.1 fL Normal 6.6 - 10.5 fL AO Workflow SS Platelets (Bld) [#/Vol] 171 103/mcL Normal 150 - 450 10^3/mcL AO Workflow SS Potassium [Moles/Vol] 3.8 mmol/L Normal 3.5 - 5.1 mmol/L AO ADM SS RBC (Bld) [#/Vol] 4.79 106/mcL Normal 4.10 - 5.3 0 10^6/mcL AO Workflow SS Sodium [Moles/Vol] 146 mmol/L High 136 - 145 mmol/L AO ADM SS Urea nitrogen [Mass/Vol] 9 mg/dL Normal 7 - 18 mg/dL AO ADM SS Urea nitrogen/Creatinine [Mass ratio] 11 ratio Normal 7 - 27 ratio AO ADM SS WBC (Bld) [#/Vol] 9.9 103/mcL Normal 4.5 - 10.8 10^3/mcL AO Workflow SS LABORATORYOrdered By: Teetee Stroud on 05-18-2024 Appearance (U) Cloudy *ABN* (05/18/24 2:48 AM) Invalid Interpretation Code Clear AO Auto Urine SS Bilirubin Ql (U) Negative (05/18/24 2:48 AM) Normal Negative AO Auto Urine SS Color (U) Yellow (05/18/24 2:48 AM) Normal AO Auto Urine SS Crystals.amorphous LM.HPF (Urine sed) [#/Area] 2 /[HPF] Normal AO Auto Urine SS Glucose Test strip (U) [Mass/Vol] Negative Normal Negative AO Auto Urine SS HCG ( test) Ql Negative (05/18/24 2:48 AM) Normal AO Manual Urine SS Hemoglobin Auto test strip (U) [Mass/Vol] Negative (05/18/24 2:48 AM) Normal Negative AO Auto Urine SS Ketones Ql (U) Negative Normal Negative AO Auto Urine SS test (u) int Not detected Invalid Interpretation Code AO Manual Urine SS UA Leuk Est Small *ABN* (05/18/24 2:48 AM) Invalid Interpretation Code Negative AO Auto Urine SS UA Nitrite Negative (05/18/24 2:48 AM) Normal Negative AO Auto Urine SS UA pH 7.0 (05/18/24 2:48 AM) Normal 5.0 - 8.0 AO Auto Urine SS UA Protein Negative Normal Negative AO Auto Urine SS UA RBC None Seen /HPF Normal None Seen AO Auto Urine SS UA Spec Grav 1.020 (05/18/24 2:48 AM) Normal 1.015-1.025 AO Auto Urine SS UA Specimen Type Clean Catch (05/18/24 2:48 AM) Normal AO Auto Urine SS UA Squam Epithelial 0-5 /HPF Invalid Interpretation Code None Seen AO Auto Urine SS UA Urobilinogen 0.2 E.U./dL Normal 0.2-1.0 AO Auto Urine SS WBC LM.HPF (Urine sed) [#/Area] 5-10 /HPF Invalid Interpretation Code None Seen AO Auto Urine SS PREGUon 05-18-2024 HCG ( test) Ql (U) Negative Normal [facility] Comment on above: Performed By: #### U A, UAMICAO, PREGU #### [address] [address] test (u) int Not detected Invalid Interpretation Code [facility] Comment on above: Performed By: #### U A, UAMICAO, PREGU #### [address] [address] UAon 05-18-2024 Color (U) Yellow Normal [facility] Comment on above: Performed By: #### U A, UAMICAO, PREGU #### [address] [address] Glucose (U) [Mass/Vol] Negative Normal Negative [facility] Comment on above: Performed By: #### U A, UAMICAO, PREGU #### [place] [address] Ketones Ql (U) Negative Normal Negative [facility] Comment on above: Performed By: #### U A, UAMICAO, PREGU #### [place] [address] UA Appear Cloudy Abnormal Clear [facility] Comment on above: Performed By: #### U A, UAMICAO, PREGU #### [place] [address] UA Blood Negative Normal Negative [facility] Comment on above: Performed By: #### U A, UAMICAO, PREGU #### [place] [address] UA Leuk Est Small Abnormal Negative [facility] Comment on above: Performed By: #### U A, UAMICAO, PREGU #### [place] [address] UA Nitrite Negative Normal Negative [facility] Comment on above: Performed By: #### U A, UAMICAO, PREGU #### [place] [address] UA pH 7.0 Normal 5.0 - 8.0 [facility] Comment on above: Performed By: #### U A, UAMICAO, PREGU #### [place] [address] UA Protein Negative Normal Negative [facility] Comment on above: Performed By: #### U A, UAMICAO, PREGU #### [place] [address] UA Spec Grav 1.020 Normal 1.015-1.025 [facility] Comment on above: Performed By: #### U A, UAMICAO, PREGU #### [place] [address] UA Specimen Type Clean Catch Normal [facility] Comment on above: Performed By: #### U A, UAMICAO, PREGU #### [facility] [place] [facility] [address] [place], [place] [address] UA Urobilinogen 0.2 E.U./dL Normal 0.2-1.0 [facility] Comment on above: Performed By: #### U A, UAMICAO, PREGU #### [place] [id number] [place], [place] [address] Urobilinogen (U) [Mass/Vol] Negative Normal Negative [facility] Comment on above: Performed By: #### U A, UAMICAO, PREGU #### [place] [id number] [place], [place] [address] [facility]-2024 [facility] ([facility]WM[facility] KIKI WARE ([id number]) 2 F Date Time Provider Department 05/13/24 11:00 AM NURSE AUTOMOTIVE SERVICE TECHNICIAN [facility] OBGYWM During your visit today, we recorded the following information about you: Blood pressure Weight 120/87 89.8 kg Miranda Tadeo RN 05/13/2024 12:30 PM Signed Patient identified by name and date of . Kiki Ware is here for a Depo Provera injection. Patient brought medication. Date last injected: first injection - negative test. Depo-Provera, 150 mg, administered IM right upper quadrant gluteus, Lot # [id number], expiration date 09/2025. Depo-Provera was given without incident. Date of last menses: No LMP recorded (lmp unknown). Irregular bleeding - No Menses ceased - Yes Medication verified by dispensing pharmacist Patient instructed to return to clinic on 12 weeks. [email or web address] Provider Sheila Hernandez MD was present in office at time of injection. TJ Adam Jennifer, RN 05/13/2024 11:37 AM Signed DEPO-PROVERA control is a way for men and women to prevent . There are many different methods of control; some types also protect against sexually transmitted diseases. Depo-Provera is a control method for women. It is made up of a hormone similar to progesterone and is given as a shot into the woman's arm or buttocks. Each shot provides protection against for up to 14 weeks, but the shot must be received once every 3 months. Depo-Provera does not protect against sexually transmitted diseases. Where can I get Depo-Provera? You must receive the shot from a doctor. The shot is usually given within five days of the beginning of your menstrual period. How is Depo-Provera used? Once the shot has been given, no additional steps are needed to prevent . With Depo-Provera, you must receive another shot once every three months to remain fully protected. How soon does it work? Protection begins immediately after the first shot if given during a menstrual period. How effective is Depo-Provera? Depo-Provera is 99% effective in preventing . Can any woman use Depo-Provera? Most women can use Depo-Provera. However, it is not recommended for women who have: Unexplained vaginal bleeding Liver disease Breast cancer Blood clots Are there side effects associated with Depo-Provera? Depo-Provera can cause a number of side effects, including: Irregular menstrual periods, or no periods at all Headaches Nervousness Depression Dizziness Acne Changes in appetite Weight gain Excessive growth of facial and body hair Hair loss You should discuss the potential side effects of Depo-Provera with your doctor. Most of the side effects are not common. Change in the menstrual cycle is the most common side effect. You may experience irregular bleeding or spotting. After a year of use, about 50% of women will stop getting their periods. Their periods usually return when they discontinue the shots. Can I become after I stop using Depo-Provera? With Depo-Provera, you could become as soon as 12 to 14 weeks after your last shot. It may take some women up to a year or two to conceive after they stop using this type of control. Does Depo-Provera protect against sexually transmitted diseases? No. To help protect yourself from STDs, use a male condom each time you and your partner have sex. What are the advantages of using Depo-Provera? You don't have to remember to take it every day or use it before sex. It provides long-term protection as long as you get the shot every three months. It doesn't interfere with sexual activity. It's over 99% effective. It's less expensive than the Pill. What are the disadvantages of using Depo-Provera? It can cause unwanted side effects. It does not provide protection against sexually transmitted diseases. It can cause irregular menstrual periods. You need to stop taking Depo-Provera several months ahead of time if you plan to become . Regular doctor visits can be inconvenient. ? Copyright 4411-2905 The [facility]. All rights reserved This information is provided by the [facility] and is not intended to replace the medical advice of your doctor or health care provider. Please consult your health care provider for advice about a specific medical condition. For additional written health information, please contact the Health Information Center at the [facility] or toll-free extension [phone]. This document was last reviewed on: 2004 Allergies As of Date: 05/13/2024 Noted Allergy Reaction DEPAKOTE (DIVALPROEX) 07/23/2021 14 - Other: See Comments Comments: Abnormal LFTs Date R (more content not included)... Normal [facility] CNPNon 05-13-2024 SARAHN Telephone (LANIEGY) KIKI WARE ([id number]) 2 F Date Time Provider Department 05/13/24 ARIEL GUTIERREZ During your visit today, we recorded the following information about you: Miranda Tadeo RN 05/13/2024 11:55 AM Signed Patient seen in office today for initial Depo injection. Please file CAM order. Thank you. Miranda Tadeo RN Allergies As of Date: 05/13/2024 Noted Allergy Reaction DEPAKOTE (DIVALPROEX) 07/23/2021 14 - Other: See Comments Comments: Abnormal LFTs Date Reviewed: 05/13/2024 Reviewed by: Miranda Tadeo RN - Fully Assessed Reason for Visit: Orders [681] Order(s):medroxyPROGE STERone 150 mg injection (DEPO-PROVERA)Disp: Rfl: Prescriptions as of 05/13/2024 - perampanel (FYCOMPA) 4 mg tablet Take 1 tablet by mouth daily at bedtime for 90 days. - medroxyPROGESTERone (DEPO-PROVERA) 150 mg/mL Inject 1 mL intramuscularly every 12 weeks. - norgestimate 0.25 mg-ethinyl estradiol 35 mcg (SPRINTEC) 0.25-35 mg-mcg per tablet Take 1 tablet by mouth once daily. - zonisamide (ZONEGRAN) 100 mg capsule Take 3 capsules by mouth two times a day. - clonazePAM (KLONOPIN) 0.5 mg tablet Take 1 tablet by mouth three times a day for 180 days. - ethosuximide (ZARONTIN) 250 mg capsule Take 1 capsule by mouth two times a day. - lacosamide (VIMPAT) 150 mg tab Take 2 tablets by mouth two times a day for 180 days. - levETIRAcetam (KEPPRA) 1,000 mg tablet Take 3 tablets by mouth two times a day. - cloBAZam (ONFI) 10 mg tab tablet Take 2 tablets by mouth two times a day for 180 days. - folic acid 1 mg tablet Take 2 tablets by mouth twice daily. Facility-Administered Medications as of 05/13/2024 - medroxyPROGESTERone 150 mg injection (DEPO-PROVERA) Problem List As Of Date 05/13/2024 Noted Resolved Breakthrough seizure (HCC) [G40.919] 10/06/2008 ADD (attention deficit disorder) [F98.8] 12/14/2009 09/03/2022 S/P placement of VNS (vagus nerve stimulation) *03/09/2021 Generalized epilepsy (HCC) [G40.309] 07/23/2021 09/03/2022 Nicotine use disorder, F17.2 [F17.200] 07/24/2021 08/27/2022 Supervision of high risk , antepartum *02/12/2022 09/03/2022 related nausea, antepartum [O26.899, *02/28/2022 09/03/2022 Patient request for diagnostic testing [Z01.89] 02/28/2022 08/27/2022 Obesity affecting , antepartum [O99.21*03/26/2022 Vaginal bleeding in , second trimester*04/23/2022 08/27/2022 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] 04/23/2022 Anemia, antepartum, third trimester [O99.013] 07/30/2022 09/03/2022 Abnormal glucose complicating [O99.81*07/30/2022 Seizure (HCC) [R56.9] 09/03/2022 Fall from standing [W19.XXXA] 09/03/2022 Prematurity of fetus [P07.30] 09/03/2022 Encounter for induction of labor [Z34.90] 09/22/2022 09/28/2022 state [Z39.2] 09/28/2022 Polypharmacy [Z79.899] 01/23/2024 Prescriptions ordered this encounter Disp Refills Start End MEDROXYPROGESTERONE 150 MG/ML INTRAM* 05/13/2024 04/14/2025 Route: INTRAMUSCULA Encounter Status:Closed by SIXTO ESPITIA on 05/13/24 [facility]/Oon 05-13-2024 status Negative neg - [facility] Quality Check Yes yes/no [facility] No Panel Informationon 05-13 [facility] UA DIP,URINE HCG (POC)on Beta HCG ( test) Ql (U) Negative Negative [facility] Comment on above: Location:[facility], [address], [place], [address] [place] (POCT) Internal QC [facility] Location:DIONICIO Ramachandran [facility], [address] [place], [address] [facility] POINT OF CARE [facility] 04-28-2024 SARAHN Telephone (OBGYWM) KIKI WARE ([id number]) 2 F Date Time Provider Department 04/28/24 ARIEL GUTIERREZ During your visit today, we recorded the following information about you: Miranda Tadeo RN 04/28/2024 12:28 PM Signed Patient states she took x2 pills of the Sprintec and stopped taking because she did not like it. Patient did not elaborate. Asking if she is still protected with the Depo. Advised her last injection was 13w6d and 2 tablets of OCP will not provide protection. She wants to resume Depo. Ok to resume? Will need a new RX and CAM order if appropriate. TJ Adam Emily, APRN.MEDICAL OFFICE COORDINATOR 04/28/2024 12:32 PM Signed Ok to resume Radha Holt RN 04/28/2024 1:06 PM Signed Pt notified and nurse appt made for Depo 05/05/24. Radha Holt RN Allergies As of Date: 04/28/2024 Noted Allergy Reaction DEPAKOTE (DIVALPROEX) 07/23/2021 14 - Other: See Comments Comments: Abnormal LFTs Date Reviewed: 03/05/2024 Reviewed by: Annalisa Chery LPN - Fully Assessed Reason for Visit: Medication Problem [65] Order(s):medroxyPROGE STERone (DEPO-PROVERA) 150 mg/mLInject 1 mL intramuscularly every 12 weeks.Disp: 1 mLRfl: 3 Prescriptions as of 04/28/2024 - medroxyPROGESTERone (DEPO-PROVERA) 150 mg/mL Inject 1 mL intramuscularly every 12 weeks. - norgestimate 0.25 mg-ethinyl estradiol 35 mcg (SPRINTEC) 0.25-35 mg-mcg per tablet Take 1 tablet by mouth once daily. - zonisamide (ZONEGRAN) 100 mg capsule Take 3 capsules by mouth two times a day. - clonazePAM (KLONOPIN) 0.5 mg tablet Take 1 tablet by mouth three times a day for 180 days. - ethosuximide (ZARONTIN) 250 mg capsule Take 1 capsule by mouth two times a day. - lacosamide (VIMPAT) 150 mg tab Take 2 tablets by mouth two times a day for 180 days. - levETIRAcetam (KEPPRA) 1,000 mg tablet Take 3 tablets by mouth two times a day. - perampanel (FYCOMPA) 4 mg tablet Take 1 tablet by mouth daily at bedtime for 90 days. - cloBAZam (ONFI) 10 mg tab tablet Take 2 tablets by mouth two times a day for 180 days. - folic acid 1 mg tablet Take 2 tablets by mouth twice daily. Problem List As Of Date 04/28/2024 Noted Resolved Breakthrough seizure (HCC) [G40.919] 10/06/2008 ADD (attention deficit disorder) [F98.8] 12/14/2009 09/03/2022 S/P placement of VNS (vagus nerve stimulation) *03/09/2021 Generalized epilepsy (HCC) [G40.309] 07/23/2021 09/03/2022 Nicotine use disorder, F17.2 [F17.200] 07/24/2021 08/27/2022 Supervision of high risk , antepartum *02/12/2022 09/03/2022 related nausea, antepartum [O26.899, *02/28/2022 09/03/2022 Patient request for diagnostic testing [Z01.89] 02/28/2022 08/27/2022 Obesity affecting , antepartum [O99.21*03/26/2022 Vaginal bleeding in , second trimester*04/23/2022 08/27/2022 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 Encounter Status:Closed by RADHA HOLT on 04/28/24 [facility] 04-13-2024 STEPHANIE Telephone (OBGYWM) KIKI WARE ([id number]) 2 F Date Time Provider Department 04/13/24 ARIEL GUTIERREZ During your visit today, we recorded the following information about you: Nathaniel Mckinney RN 04/13/2024 1:31 PM Addendum Patient called in asking for side effects of OCP. States she hasn't started it yet because she is concerned that Depoprovera is still in her system. I did explain to patient side effects of OCP and the importance of not missing any pills or being late and she should begin OCP. Patient states she remembered being counseled about the side effects but couldn't remember..I did send her a [employer] message going over the common questions from [employer]. Ariel Gutierrez APRN.MEDICAL OFFICE COORDINATOR 04/14/2024 7:49 AM Signed Noted and agree with nursing advice. Ariel Gutierrez APRN.MEDICAL OFFICE COORDINATOR Allergies As of Date: 04/13/2024 Noted Allergy Reaction DEPAKOTE (DIVALPROEX) 07/23/2021 14 - Other: See Comments Comments: Abnormal LFTs Date Reviewed: 03/05/2024 Reviewed by: Annalisa Chery LPN - Fully Assessed Prescriptions as of 04/20/2024 - norgestimate 0.25 mg-ethinyl estradiol 35 mcg (SPRINTEC) 0.25-35 mg-mcg per tablet Take 1 tablet by mouth once daily. - zonisamide (ZONEGRAN) 100 mg capsule Take 3 capsules by mouth two times a day. - clonazePAM (KLONOPIN) 0.5 mg tablet Take 1 tablet by mouth three times a day for 180 days. - ethosuximide (ZARONTIN) 250 mg capsule Take 1 capsule by mouth two times a day. - lacosamide (VIMPAT) 150 mg tab Take 2 tablets by mouth two times a day for 180 days. - levETIRAcetam (KEPPRA) 1,000 mg tablet Take 3 tablets by mouth two times a day. - perampanel (FYCOMPA) 4 mg tablet Take 1 tablet by mouth daily at bedtime for 90 days. - cloBAZam (ONFI) 10 mg tab tablet Take 2 tablets by mouth two times a day for 180 days. - folic acid 1 mg tablet Take 2 tablets by mouth twice daily. Problem List As Of Date 04/13/2024 Noted Resolved Breakthrough seizure (HCC) [G40.919] 10/06/2008 ADD (attention deficit disorder) [F98.8] 12/14/2009 09/03/2022 S/P placement of VNS (vagus nerve stimulation) *03/09/2021 Generalized epilepsy (HCC) [G40.309] 07/23/2021 09/03/2022 Nicotine use disorder, F17.2 [F17.200] 07/24/2021 08/27/2022 Supervision of high risk , antepartum *02/12/2022 09/03/2022 related nausea, antepartum [O26.899, *02/28/2022 09/03/2022 Patient request for diagnostic testing [Z01.89] 02/28/2022 08/27/2022 Obesity affecting , antepartum [O99.21*03/26/2022 Vaginal bleeding in , second trimester*04/23/2022 08/27/2022 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] 04/23/2022 Anemia, antepartum, third trimester [O99.013] 07/30/2022 09/03/2022 Abnormal glucose complicating [O99.81*07/30/2022 Seizure (HCC) [R56.9] 09/03/2022 Fall from standing [W19.XXXA] 09/03/2022 Prematurity of fetus [P07.30] 09/03/2022 Encounter for induction of labor [Z34.90] 09/22/2022 09/28/2022 state [Z39.2] 09/28/2022 Polypharmacy [Z79.899] 01/23/2024 Encounter Status:Closed by NATHANIEL MCKINNEY [facility]/20/[facility] KIKI [facility] ([id number]) 2 F Date Time Provider Department 03/26/24 MARIA EUGENIA SORIA During your visit today, we recorded the following information about you: Allergies As of Date: 03/26/2024 Noted Allergy Reaction DEPAKOTE (DIVALPROEX) 07/23/2021 14 - Other: See Comments Comments: Abnormal LFTs Date Reviewed: 03/05/2024 Reviewed by: Annalisa Chery LPN - Fully Assessed Prescriptions as of 03/26/2024 - norgestimate 0.25 mg-ethinyl estradiol 35 mcg (SPRINTEC) 0.25-35 mg-mcg per tablet Take 1 tablet by mouth once daily. - zonisamide (ZONEGRAN) 100 mg capsule Take 3 capsules by mouth two times a day. - clonazePAM (KLONOPIN) 0.5 mg tablet Take 1 tablet by mouth three times a day for 180 days. - ethosuximide (ZARONTIN) 250 mg capsule Take 1 capsule by mouth two times a day. - lacosamide (VIMPAT) 150 mg tab Take 2 tablets by mouth two times a day for 180 days. - levETIRAcetam (KEPPRA) 1,000 mg tablet Take 3 tablets by mouth two times a day. - perampanel (FYCOMPA) 4 mg tablet Take 1 tablet by mouth daily at bedtime for 90 days. - cloBAZam (ONFI) 10 mg tab tablet Take 2 tablets by mouth two times a day for 180 days. - folic acid 1 mg tablet Take 2 tablets by mouth twice daily. Problem List As Of Date 03/26/2024 Noted Resolved Breakthrough seizure (HCC) [G40.919] 10/06/2008 ADD (attention deficit disorder) [F98.8] 12/14/2009 09/03/2022 S/P placement of VNS (vagus nerve stimulation) *03/09/2021 Generalized epilepsy (HCC) [G40.309] 07/23/2021 09/03/2022 Nicotine use disorder, F17.2 [F17.200] 07/24/2021 08/27/2022 Supervision of high risk , antepartum *02/12/2022 09/03/2022 related nausea, antepartum [O26.899, *02/28/2022 09/03/2022 Patient request for diagnostic testing [Z01.89] 02/28/2022 08/27/2022 Obesity affecting , antepartum [O99.21*03/26/2022 Vaginal bleeding in , second trimester*04/23/2022 08/27/2022 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] 04/23/2022 Anemia, antepartum, third trimester [O99.013] 07/30/2022 09/03/2022 Abnormal glucose complicating [O99.81*07/30/2022 Seizure (HCC) [R56.9] 09/03/2022 Fall from standing [W19.XXXA] 09/03/2022 Prematurity of fetus [P07.30] 09/03/2022 Encounter for induction of labor [Z34.90] 09/22/2022 09/28/2022 state [Z39.2] 09/28/2022 Polypharmacy [Z79.899] 01/23/2024 Encounter Status:Closed by RADHA HOLT on 03/26/24 [facility] KIK[facility] WARE ([id number]) 2 F Date Time Provider Department 03/17/24 ALIVIA ARGUETA OBGYWM During your visit today, we recorded the following information about you: Radha Holt, TJ 03/17/2024 1:53 PM Signed Pt called asking when she got her last Depo shot. Advised last depo shot was given 01/22/24. Pt is asking how long it is in her system and if it is still effective with preventing . When asked if she is trying to get , Pt states Kind of. Pt was switched to OCP on 03/10/24, but states she hasn't started them yet because I'm trying to decide if I want to or not. Please advise. TJ Weaver Teresa, RN 03/17/2024 3:54 PM Signed Patient called back again to ask for questions to be answered. I advised patient that she has 12 weeks of protection with Depoprovera injection. If she choses to not get her next injection it can take awhile to get or it may happen quickly, there is no way to know. According to [facility] patient education handout she was also advised she could become as soon as 12 to 14 weeks after her last shot or it could also take up to a year or two to conceive after stopping this type of contraception.All questions answered to her satisfaction. If you have any further advice we can call her back Alivai Argueta MD 03/17/2024 4:26 PM Signed Agree with advice Allergies As of Date: 03/17/2024 Noted Allergy Reaction DEPAKOTE (DIVALPROEX) 07/23/2021 14 - Other: See Comments Comments: Abnormal LFTs Date Reviewed: 03/05/2024 Reviewed by: Annalisa Chery LPN - Fully Assessed Prescriptions as of 03/17/2024 - norgestimate 0.25 mg-ethinyl estradiol 35 mcg (SPRINTEC) 0.25-35 mg-mcg per tablet Take 1 tablet by mouth once daily. - zonisamide (ZONEGRAN) 100 mg capsule Take 3 capsules by mouth two times a day. - clonazePAM (KLONOPIN) 0.5 mg tablet Take 1 tablet by mouth three times a day for 180 days. - ethosuximide (ZARONTIN) 250 mg capsule Take 1 capsule by mouth two times a day. - lacosamide (VIMPAT) 150 mg tab Take 2 tablets by mouth two times a day for 180 days. - levETIRAcetam (KEPPRA) 1,000 mg tablet Take 3 tablets by mouth two times a day. - perampanel (FYCOMPA) 4 mg tablet Take 1 tablet by mouth daily at bedtime for 90 days. - cloBAZam (ONFI) 10 mg tab tablet Take 2 tablets by mouth two times a day for 180 days. - folic acid 1 mg tablet Take 2 tablets by mouth twice daily. Problem List As Of Date 03/17/2024 Noted Resolved Breakthrough seizure (HCC) [G40.919] 10/06/2008 ADD (attention deficit disorder) [F98.8] 12/14/2009 09/03/2022 S/P placement of VNS (vagus nerve stimulation) *03/09/2021 Generalized epilepsy (HCC) [G40.309] 07/23/2021 09/03/2022 Nicotine use disorder, F17.2 [F17.200] 07/24/2021 08/27/2022 Supervision of high risk , antepartum *02/12/2022 09/03/2022 related nausea, antepartum [O26.899, *02/28/2022 09/03/2022 Patient request for diagnostic testing [Z01.89] 02/28/2022 08/27/2022 Obesity affecting , antepartum [O99.21*03/26/2022 Vaginal bleeding in , second trimester*04/23/2022 08/27/2022 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 During your visit today, we recorded the following information about you: Patrick Holloway RN 03/12/2024 11:22 AM Signed [facility] RN Coordination Date of Referral: 03/08/2024 Documentation of Patient Contact: Date: Contact Type: Details: Sign: 03/12/2024 Phone Pt referred to [facility] by Ariel Gutierrez CNP for control options discussion. Called pt, verified name and . Pt reports that she wanted to be on an OCP and Dr. Hernandze prescribed it for her. Pt declines appointment with Complex COntraception. LUCAS Holloway RN Allergies As of Date: 03/12/2024 Noted Allergy Reaction DEPAKOTE (DIVALPROEX) 07/23/2021 14 - Other: See Comments Comments: Abnormal LFTs Date Reviewed: 03/05/2024 Reviewed by: Annalisa Chery LPN - Fully Assessed Reason for Visit: Complex Contraception [Other] Prescriptions as of 03/12/2024 - norgestimate 0.25 mg-ethinyl estradiol 35 mcg (SPRINTEC) 0.25-35 mg-mcg per tablet Take 1 tablet by mouth once daily. - zonisamide (ZONEGRAN) 100 mg capsule Take 3 capsules by mouth two times a day. - clonazePAM (KLONOPIN) 0.5 mg tablet Take 1 tablet by mouth three times a day for 180 days. - ethosuximide (ZARONTIN) 250 mg capsule Take 1 capsule by mouth two times a day. - lacosamide (VIMPAT) 150 mg tab Take 2 tablets by mouth two times a day for 180 days. - levETIRAcetam (KEPPRA) 1,000 mg tablet Take 3 tablets by mouth two times a day. - perampanel (FYCOMPA) 4 mg tablet Take 1 tablet by mouth daily at bedtime for 90 days. - cloBAZam (ONFI) 10 mg tab tablet Take 2 tablets by mouth two times a day for 180 days. - folic acid 1 mg tablet Take 2 tablets by mouth twice daily. Problem List As Of Date 03/12/2024 Noted Resolved Breakthrough seizure (HCC) [G40.919] 10/06/2008 ADD (attention deficit disorder) [F98.8] 12/14/2009 09/03/2022 S/P placement of VNS (vagus nerve stimulation) *03/09/2021 Generalized epilepsy (HCC) [G40.309] 07/23/2021 09/03/2022 Nicotine use disorder, F17.2 [F17.200] 07/24/2021 08/27/2022 Supervision of high risk , antepartum *02/12/2022 09/03/2022 related nausea, antepartum [O26.899, *02/28/2022 09/03/2022 Patient request for diagnostic testing [Z01.89] 02/28/2022 08/27/2022 Obesity affecting , antepartum [O99.21*03/26/2022 Vaginal bleeding in , second trimester*04/23/2022 08/27/2022 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] 04/23/2022 Anemia, antepartum, third trimester [O99.013] 07/30/2022 09/03/2022 Abnormal glucose complicating [O99.81*07/30/2022 Seizure (HCC) [R56.9] 09/03/2022 Fall from standing [W19.XXXA] 09/03/2022 Prematurity of fetus [P07.30] 09/03/2022 Encounter for induction of labor [Z34.90] 09/22/2022 09/28/2022 state [Z39.2] 09/28/2022 Polypharmacy [Z79.899] 01/23/2024 Encounter Status:Closed by PATRICK HOLLOWAY on 03/12/24 [facility] 03-10-2024 [facility] Telephone (MORENA) KIKI WARE ([id number]) 2 F Date Time Provider Department 03/10/24 ARIEL GUTIERREZ During your visit today, we recorded the following information about you: Zenia Tracy LPN 03/10/2024 1:04 PM Signed Patient states that her neurologist told her that it ok for her to go off depo provera (noted in [employer] message from 03/06/2024. Patient really wants to take a control pill and does not want to have to see a specialist in order to get control . Pt. Stated if provider is not comfortable prescribing an ocp if a physician at our office would be able to prescribe? Please advise. Sheila Hernandez MD 03/10/2024 1:21 PM Signed She can be on control pills if she elects. We want to make sure she understands that they are not as effective at preventing pregnancies in women over 185 lbs according to scientific literature and they are not as effective in women on seizure medications. In addition, they are not as effective at preventing if they are missed or taken at different times of the day. I would strongly recommend she take a PNV daily and extra folic acid in case there is an unplanned and use condoms as a backup to decrease risks. MD Chase Lvie Tara, RN 03/10/2024 2:34 PM Signed Last annual 03/05/24 with . Pt agreeable to start OCP. Pt made aware of RR advice and recommendations. Pt is adamant that she does not want to be required to see a specialist in order to get the control. I informed Pt that the Agreeable to writing an Rx for OCP, is an OBGYN. Pt states it is her choice whether or not she sees a specialist. This RN advised Pt that it is indeed her choice. Advised importance in following the providers advice to make certain it is preventing if that is indeed what she wishes. TJ Weaver Rebecca L, MD 03/10/2024 3:06 PM Addendum rx sent, Can start anytime. Last depo 2 months ago. Shira Duarte RN 03/10/2024 3:15 PM Signed Left message to call office. TJ Jensen Jennifer, RN 03/11/2024 11:06 AM Signed Patient called asking what are the side effects of the Sprintec. In general, she is concerned about gaining weight. States she lost weight and does not want to regain it back. TJ Adam Emily, APRN.MEDICAL OFFICE COORDINATOR 03/11/2024 11:08 AM Signed Generally don't see weight gain with OCP. Most common symptoms are nausea and breast tenderness. Ariel Gutierrez APRN.Sixto Russ RN 03/11/2024 11:14 AM Signed Patient notified. Sixto Espitia RN Allergies As of Date: 03/10/2024 Noted Allergy Reaction DEPAKOTE (DIVALPROEX) 07/23/2021 14 - Other: See Comments Comments: Abnormal LFTs Date Reviewed: 03/05/2024 Reviewed by: Annalisa Chery LPN - Fully Assessed Reason for Visit: Contraception [26] Order(s):norgestimate 0.25 mg-ethinyl estradiol 35 mcg (SPRINTEC) 0.25-35 mg-mcg per tabletTake 1 tablet by mouth once daily.Disp: 28 tabletRfl: 12 Prescriptions as of 03/11/2024 - norgestimate 0.25 mg-ethinyl estradiol 35 mcg (SPRINTEC) 0.25-35 mg-mcg per tablet Take 1 tablet by mouth once daily. - zonisamide (ZONEGRAN) 100 mg capsule Take 3 capsules by mouth two times a day. - clonazePAM (KLONOPIN) 0.5 mg tablet Take 1 tablet by mouth three times a day for 180 days. - ethosuximide (ZARONTIN) 250 mg capsule Take 1 capsule by mouth two times a day. - lacosamide (VIMPAT) 150 mg tab Take 2 tablets by mouth two times a day for 180 days. - levETIRAcetam (KEPPRA) 1,000 mg tablet Take 3 tablets by mouth two times a day. - perampanel (FYCOMPA) 4 mg tablet Take 1 tablet by mouth daily at bedtime for 90 days. - cloBAZam (ONFI) 10 mg tab tablet Take 2 tablets by mouth two times a day for 180 days. - folic acid 1 mg tablet Take 2 tablets by mouth twice daily. Problem List As Of Date 03/10/2024 Noted Resolved Breakthrough seizure (HCC) [G40.919] 10/06/2008 ADD (attention deficit disorder) [F98.8] 12/14/2009 09/03/2022 S/P placement of VNS (vagus nerve stimulation) *03/09/2021 Generalized epilepsy (HCC) [G40.309] 07/23/2021 09/03/2022 Nicotine use disorder, F17.2 [F17.200] 07/24/2021 08/27/2022 Supervision of high risk , antepartum *02/12/2022 09/03/2022 related nausea, antepartum [O26.899, *02/28/2022 09/03/2022 Patient request for diagnostic testing [Z01.89] 02/28/2022 08/27/2022 Obesity affecting , antepartum [O99.21*03/26/2022 Vaginal bleeding in , second trimester*04/23/2022 08/27/2022 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] 04/23/2022 Anemia, antepartum, third trimester [O99.013] 07/30/2022 09/03/2022 Abnormal glucose complicating [O99.81*07/30/2022 Seizure (HCC) [R56.9] 09/03/2022 Fall from standing [W19.XXXA] 09/03/2022 Prematurity of fetus [P07.30] 09/03/2022 Encounter for induction (more content not included)... Normal [facility] CNPNon 03-08-2024 CNPN Telephone (OBGYWM) KIKI WARE ([id number]) 2 F Date Time Provider Department 03/08/24 ARIEL GUTIERREZ OBRINAWM During your visit today, we recorded the following information about you: Ariel Gutierrez APRN.MEDICAL OFFICE COORDINATOR 03/08/2024 8:32 AM Signed Please notify patient that I received consult from complex contraception clinic summarized below: Nexplanon does not suppress estrogen levels like Depo so may experience relief from hot flashes with Nexplanon. Progestin dominant is going to be preferred with a history of seizures, as estrogen decreases seizure threshold, versus progestin is protective for the seizure threshold. Nexplanon and Depo likely to control ovulation better than progesterone only pill, if there isn't a pattern with her seizures/cycles. As discussed in appt, on several meds for seizures and not well studied with oral contraceptives. Some of these meds may cause decreased effectiveness of OCP. A nonhormonal IUD would be a preferred contraceptive option. Even the more effective contraceptive options such as Nexplanon AND Mirena can see a decrease in the progestin levels with concomitant antiseizure med interactions so condom use is recommended. If she still wants OCP, will place complex contraception referral. LIAM Villafana Trisha, RN 03/08/2024 1:11 PM Signed Patient called back and still wants to proceed with OCP. Please file order and we can notify patient to schedule. TJ Heredia Emily, APRN.CNP 03/08/2024 1:31 PM Signed Signed. Ariel Gutierrez APRN.CNP Allergies As of Date: 03/08/2024 Noted Allergy Reaction DEPAKOTE (DIVALPROEX) 07/23/2021 14 - Other: See Comments Comments: Abnormal LFTs Date Reviewed: 03/05/2024 Reviewed by: Annalisa Chery LPN - Fully Assessed Reason for Visit: Contraception [26] Primary Visit Diagnosis:Encounter for contraceptive management, unspecified type [Z30.9] Other Visit Diagnosis:History of epilepsy [Z86.69] Order(s):CONSULT COMPLEX CONTRACEPTION [[id number]] Order #: [id number]: 1 Prescriptions as of 03/08/2024 - zonisamide (ZONEGRAN) 100 mg capsule Take 3 capsules by mouth two times a day. - clonazePAM (KLONOPIN) 0.5 mg tablet Take 1 tablet by mouth three times a day for 180 days. - ethosuximide (ZARONTIN) 250 mg capsule Take 1 capsule by mouth two times a day. - lacosamide (VIMPAT) 150 mg tab Take 2 tablets by mouth two times a day for 180 days. - levETIRAcetam (KEPPRA) 1,000 mg tablet Take 3 tablets by mouth two times a day. - perampanel (FYCOMPA) 4 mg tablet Take 1 tablet by mouth daily at bedtime for 90 days. - medroxyPROGESTERone (DEPO-PROVERA) 150 mg/mL Inject 1 mL intramuscularly every 12 weeks. - cloBAZam (ONFI) 10 mg tab tablet Take 2 tablets by mouth two times a day for 180 days. - folic acid 1 mg tablet Take 2 tablets by mouth twice daily. Facility-Administered Medications as of 03/08/2024 - medroxyPROGESTERone 150 mg injection (DEPO-PROVERA) Problem List As Of Date 03/08/2024 Noted Resolved Breakthrough seizure (HCC) [G40.919] 10/06/2008 ADD (attention deficit disorder) [F98.8] 12/14/2009 09/03/2022 S/P placement of VNS (vagus nerve stimulation) *03/09/2021 Generalized epilepsy (HCC) [G40.309] 07/23/2021 09/03/2022 Nicotine use disorder, F17.2 [F17.200] 07/24/2021 08/27/2022 Supervision of high risk , antepartum *02/12/2022 09/03/2022 related nausea, antepartum [O26.899, *02/28/2022 09/03/2022 Patient request for diagnostic testing [Z01.89] 02/28/2022 08/27/2022 Obesity affecting , antepartum [O99.21*03/26/2022 Vaginal bleeding in , second trimester*04/23/2022 08/27/2022 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] 04/23/2022 Anemia, antepartum, third trimester [O99.013] 07/30/2022 09/03/2022 Abnormal glucose complicating [O99.81*07/30/2022 Seizure (HCC) [R56.9] 09/03/2022 Fall from standing [W19.XXXA] 09/03/2022 Prematurity of fetus [P07.30] 09/03/2022 Encounter for induction of labor [Z34.90] 09/22/2022 09/28/2022 state [Z39.2] 09/28/2022 Polypharmacy [Z79.899] 01/23/2024 Encounter Status:Closed by SIXTO ESPITIA on 03/08/24 Normal [facility] UA DIP,URINE HCG (POC)on Beta HCG ( test) Ql (U) Negative Negative [facility] Comment on above: Location:[facility], [address], [place], [address] Lining Layer (POCT) Internal QC [facility] Location:[facility], [address], [place], [address] [facility] POINT OF CARE [facility] CNOVon 02-19-2024 CNOV Office Visit (NE50MN ) KIKI WARE ([id number]) 2 F Date Time Provider Department 02/19/24 2:00 PM RUBEN TELLEZ NE50MN During your visit today, we recorded the following information about you: Pulse Blood pressure Weight Height 106/minute 109/63 89.8 kg 1.6 m Ruben Tellez MD 02/19/2024 3:02 PM Signed [facility] Patient Name: Kiki Ware Date of : 2000 ESTABLISHED EPILEPSY CLINIC NOTE 02/19/2024 2:00 PM Reason for Visit: Established Patient, Follow Up, and VNS Visit Clinical Summary: Ms. Ware is a 22 year old right-handed female seen in [facility] Ep[facility]psy [facility]. At today's visit, the patient is accompanied by: father 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 Mother reports that she was at school. A week later she experienced another one. She did not experience another one until she was 12 year old when she experienced a prolonged GTC seizure for 10 minutes. AT that time she was started on Keppra. Keppra decreased the frequency of GTC seizures but AEDs were changed or added overtime. Mother thinks that when Depakote was added seizures became better controlled. Levels were high at some point and AEDs changes continued to be made: Mother reports different seizure types overtime: 1.GTC seizures, her last one was 2 years ago 2. Eye fluttering with absence at times that they can occur daily. They can occur daily. These episodes began at age [age] year old 3. Head drops for few seconds. She may fall or not with these events. No LOC. These events can occur 2-3 times a week. 4. Arms jerks or whole body jerks that can happen when she is watching TV or sleeping. They may occur daily as well. She bejarano snot recall when did she began experiencing them. Patient was admitted to [facility] with Breakthrough seizures a few days after she delivered her baby in August 2022. Hospital stay was complicated by multiple clusters of generalized seizures (most of them untested, but was dialeptic with eye lid fluttering when tested). Several AED changes were made eventually adding Ethosuximide. Nexplanon was explanted and Depo-provera was used in its place as patient felt that her seizures were worse after nexplanon. AED changes during 08/2022 admission Keppra 4000 mg BID -> 2000 mg BID (10/01/2022)-> 3000 BID (10/03/2022) Level elevated at 113.5 on 09/29/2022 Onfi 20 mg BID level normal on 09/26/2022 Zonisamide 300 mg BID level normal on 09/26 Vimpat 250 mg BID level normal on 09/26-> 300 BID (10/03/2022) Fycompa (perampanel) 2mg started 09/30/2022-> 4 mg (10/02/2022) [ bolus of 8 mg given on 10/01/2022]-> 6mg [10/03] VPA 250 BID [10/02/2022]-> D/C 10/06/2022 Ammonia levels were elevated. Klonapin 0.5 mg BID [ 10/03]-> 0.5 mg TID [10/04/2022] Zarontin 250 mg BID [10/04/2022] Current AEDs ? Keppra 3000 mg BID ? Vimpat 300 mg BID ? Onfi 20 mg BID ? Zonisamide 300 mg BID ? Fycompa 4 mg QHS ? Klonapin 0.5 mg TID ? Ethosuzimide (Zarontin) 250 mg BID to be taken with food. Folic acid 1 mg daily VNS implanted in Jan 2017 Patient was unable to finish high school due to frequenct seizures. Mother reports that she used to be in an accelarated class in the past. 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 In 2016 she received IV steroids Interval Seizure History During last visit,VNS Output was increased from 1.25 to 1.5 ( magnet from 1.5 to 1.75). She has been experiencing pain and difficulty breathing at these settings. Total # of Current Anti-seizure Medications: Side Effects to Current Anti-seizure Medications: Seizure Frequency at First Visit: 3 per day Longest Seizure-free Interval: 4 years Number of seizure types: 4 Hx of generalized tonic-clonic seizures: Yes Status Epilepticus or clusters: No Postictal Agitation: No Driving: No Lives Alone: No CURRENT OUTPATIENT ANTISEIZURE MEDICATIONS (as of the start of the encounter) zonisamide (ZONEGRAN) 100 mg capsule (Taking) Take 3 capsules by mouth two times a day. clonazePAM (KLONOPIN) 0.5 mg tablet (Taking) Take 1 tablet by mouth three times a day for 180 days. ethosuximide (ZARONTIN) 250 mg capsule (Taking) Take 1 capsule by mouth two times a day. lacosamide (VIMPAT) 150 mg tab (Taking) Take 2 tablets by mouth two times a day for 180 days. levETIRAcetam (KEPPRA) 1,000 mg tablet (Taking) Take 3 tablets by mouth two times a day. perampanel (FYCOMPA) 4 mg tablet (Taking) Take 1 tablet by mouth daily a (more content not included)... Normal [facility] CLOBAZAMon 02-16-2024 CLOBAZAM 388.0 ng/mL High 30-300 [facility] Comment on above: Order Comment: Speci men Type: BLOOD SPECIMEN Ordering Facility: [facility] Address: [address] [place] [address] Performed By: #### Abelardo VEGA #### [facility] CLIA [id number] [address] [id number] DESMETHYLCLOBAZAM 3010.0 ng/mL High 300-3000 [facility] Comment on above: Order Comment: Speci men Type: BLOOD SPECIMEN Ordering Facility: [facility] Address: [address] [place] [address] Result Comment: ADDITIONAL INFORMATION This test was developed and its performance characteristics determined by [facility] in a manner consistent with CLIA requirements. This test has not been cleared or approved by the U.S. Food and Drug Administration. Test Performed by: [place] [address] Head Of Academic Technology: Magnolia Nelson Ph.D.; CLIA# [id number] Performed By: ###Thiago VEGA #### [facility] CLIA [id number] [address] [address] ETHOSUXIMID/ZARONTINon 02-15 ETHOSUXIMIDE 35 ug/mL Low 40-100 [facility] Comment on above: Order Comment: Speci men Type: BLOOD SPECIMENOrdering Facility: [facility] Address: [address] [place] [address] Result Comment: INTR EPRETIVE INFORMATION: Ethosuximide Reference Interval: Therapeutic range: 40-100 ug/mL Toxic: Greater than 150 ug/mL The therapeutic range is based on serum pre-dose (trough) draw at steady-state concentration. Toxic concentrations may cause dizziness, drowsiness and anorexia. The incidence of adverse reactions is low; however, life-threatening agranulocytosis and fatal pancytopenia have been reported. Performed By: [facility] [address] [place] [address] Commissioner Conservation Of Resources: Abraham Yates MD, PhD CLIA Number: [id number] Performed By: #### Branden VARGAS ####[facility] [id number] [place] [address] LACOSAMIDEon 02-16-2024 DESMETHYLLACOSAMIDE 1.9 ug/mL Normal <2.6 [facility] Comment on above: Order Comment: Prabha junior Type: BLOOD SPECIMEN Ordering Facility: [facility] Address: [address] [place] [address] Result Comment: Expe cted concentration of patients receiving 200-400 mg/day is up to 2.5 ug/mL for Desmethyllacosamide. This test was developed, and its performance characteristics determined by the [facility] Department of Pathology and Laboratory Medicine. It has not been cleared or approved by the FDA. The [facility] Department of Pathology and Laboratory Medicine is regulated under CLIA as qualified to perform high-complexity testing. This test is used for clinical purposes. It should not be regarded as investigational or for research. Performed By: #### 5 195-3, 49216-4, 32834-6 #### [facility] [facility] CLIA [id number] [address] [place] [address] [place] Lacosamide [Mass/Vol] 8.7 ug/mL Normal 2.2-19.[address] [facility] Comment on above: Order Comment: Prabha junior Type: BLOOD SPECIMEN Ordering Facility: [facility] Address: [address] [place] [address] Result Comment: Expe cted concentration of patients receiving 200-400 mg/day is 2.2-19.8 ug/mL for Lacosamide. This test was developed, and its performance characteristics determined by the [facility] Department of Pathology and Laboratory Medicine. It has not been cleared or approved by the FDA. The [facility] Department of Pathology and Laboratory Medicine is regulated under CLIA as qualified to perform high-complexity testing. This test is used for clinical purposes. It should not be regarded as investigational or for research. Performed By: #### 5 195-3, 65495-6, 55606-0 #### [facility] CLIA [id number] [address] [place] [address] [place] Zonisamide SerPl-mCncon 01-31 Zonisamide [Mass/Vol] 34.1 ug/mL Normal 10.0-40.[address] [facility] Comment on above: Order Comment: Prabha junior Type: BLOOD SPECIMENOrdering Facility: [facility] Address: [address] [place] [address] Result Comment: This test was developed, and its performance characteristics determined by the [facility] Department of Pathology and Laboratory Medicine. It has not been cleared or approved by the FDA. The [facility] Department of Pathology and Laboratory Medicine is regulated under CLIA as qualified to perform high-complexity testing. This test is used for clinical purposes. It should not be regarded as investigational or for research. Performed By: #### 2 9620-2 ####[facility] [id number] [address] OF [facility] levETIRAcetam SerPl-mCncon 0 02-16-2024 levETIRAcetam [Mass/Vol] 35.6 ug/mL Normal 12.0-46.0 [facility] Comment on above: Order Comment: Prabha junior Type: BLOOD SPECIMEN Ordering Facility: [facility] Address: [address] [place] [address] Result Comment: This test is not suitable for patients receiving treatment with the drug brivaracetam (Briviact). The drug causes an interference that may lead to falsely elevated levetiracetam results. Reference ranges and high/low indicator flags are provided as general guidelines only. The treating physician must determine appropriate target levels/dosing based on the specific clinical situation. This test was developed, and its performance characteristics determined by the [facility] Department of Pathology and Laboratory Medicine. It has not been cleared or approved by the FDA. The [facility] Department of Pathology and Laboratory Medicine is regulated under CLIA as qualified to perform high-complexity testing. This test is used for clinical purposes. It should not be regarded as investigational or for research. Performed By: #### 5 195-3, 68103-5, 25315-3 #### [facility] CLIA [id number] [address] [place] [address] [place] Carolyne 01-27-2024 SARAHN Telephone (NIQ) KIKI WARE ([id number]) 2 F Date Time Provider Department 01/27/24 RUBEN TELLEZ NIQ During your visit today, we recorded the following information about you: Lenny Merlos 01/27/2024 11:48 AM Signed AEEG orders sent to [facility]. Lenny Bateman 02/12/2024 3:19 PM Signed Good afternoon, [facility] is requesting diagnosis codes for the routine eeg order and the at home eeg order. Once it's updated, they reach out to patient to schedule. Thank you. 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 - clonazePAM (KLONOPIN) 0.5 mg tablet Take 1 tablet by mouth three times a day for 180 days. - ethosuximide (ZARONTIN) 250 mg capsule Take 1 capsule by mouth two times a day. - lacosamide (VIMPAT) 150 mg tab Take 2 tablets by mouth two times a day for 180 days. - levETIRAcetam (KEPPRA) 1,000 mg tablet Take 3 tablets by mouth two times a day. - perampanel (FYCOMPA) 4 mg tablet Take 1 tablet by mouth daily at bedtime for 90 days. - medroxyPROGESTERone (DEPO-PROVERA) 150 mg/mL Inject 1 mL intramuscularly every 12 weeks. - cloBAZam (ONFI) 10 mg tab tablet Take 2 tablets by mouth two times a day for 180 days. - folic acid 1 mg tablet Take 2 tablets by mouth twice daily. Facility-Administered Medications as of 02/12/2024 - medroxyPROGESTERone 150 mg injection (DEPO-PROVERA) Problem List As Of Date 01/27/2024 Noted Resolved Breakthrough seizure (HCC) [G40.919] 10/06/2008 ADD (attention deficit disorder) [F98.8] 12/14/2009 09/03/2022 S/P placement of VNS (vagus nerve stimulation) *03/09/2021 Generalized epilepsy (HCC) [G40.309] 07/23/2021 09/03/2022 Nicotine use disorder, F17.2 [F17.200] 07/24/2021 08/27/2022 Supervision of high risk , antepartum *02/12/2022 09/03/2022 related nausea, antepartum [O26.899, *02/28/2022 09/03/2022 Patient request for diagnostic testing [Z01.89] 02/28/2022 08/27/2022 Obesity affecting , antepartum [O99.21*03/26/2022 Vaginal bleeding in , second trimester*04/23/2022 08/27/2022 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] 04/23/2022 Anemia, antepartum, third trimester [O99.013] 07/30/2022 09/03/2022 Abnormal glucose complicating [O99.81*07/30/2022 Seizure (HCC) [R56.9] 09/03/2022 Fall from standing [W19.XXXA] 09/03/2022 Prematurity of fetus [P07.30] 09/03/2022 Encounter for induction of labor [Z34.90] 09/22/2022 09/28/2022 state [Z39.2] 09/28/2022 Polypharmacy [Z79.899] 01/23/2024 Encounter Status:Closed by LENNY MERLOS on 01/27/24 [facility] CNOVon 01-23-2024 CNOV Office Visit (NEEPBA ) KIKI WARE ([id number]) 2 F Date Time Provider Department 01/23/24 9:20 AM RUBEN TELLEZ During your visit today, we recorded the following information about you: Pulse Respiration Blood pressure Height 98/minute 16/minute 118/88 1.575 m Ruben Tellez MD 01/23/2024 10:21 AM Signed Summary of the things we discussed today: Continue current medications. Prescriptions have been sent to your pharmacy. I increased the VNS settings today. Please let myoffice know if you are experiencing pain. We will get an EEG test done at home to see your seizure burden and to see if the panic epsiodes are related to seizures. I ordered labs. Please have your blood drawn before you take your morning dose of seizure medications or in the evening (at least 8 hrs after you take your medications). Follow up in 3 months. Please call my office if you have more seizures or with any seizure related concerns. Seizure precautions - No driving in the [facility] until seizure free for 6 months. Please check with local state authorities for state specific driving regulations. - No operating heavy machines - No swimming without supervision or bathing in a bathtub due to risk of drowning in the event of a seizure. Patient may shower. - Avoid unsafe heights, including ladders, due to risk of fall-related injury in the event of a seizure. - Seizure precipitating factors discussed including not taking seizure medications as prescribed, stress, excessive caffeine intake, energy drinks, alcohol, sleep deprivation or any identifiable seizure precipitating factor. Ruben Tellez MD Associate Staff, Epilepsy [facility] January 23, 2024 Office phone: [phone] Ruben Tellez MD 01/23/2024 12:16 PM Signed [facility] Patient Name: Kiki Ware Date of : 2000 ESTABLISHED EPILEPSY CLINIC NOTE 01/23/2024 9:20 AM Reason for Visit: Follow Up and Epilepsy Clinical Summary: Ms. Ware is a 22 year old right-handed female seen in [facility]. At today's visit, the patient is accompanied by: significant other (Hao) 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 Mother reports that she was at school. A week later she experienced another one. She did not experience another one until she was 12 year old when she experienced a prolonged GTC seizure for 10 minutes. AT that time she was started on Keppra. Keppra decreased the frequency of GTC seizures but AEDs were changed or added overtime. Mother thinks that when Depakote was added seizures became better controlled. Levels were high at some point and AEDs changes continued to be made: Mother reports different seizure types overtime: 1.GTC seizures, her last one was 2 years ago 2. Eye fluttering with absence at times that they can occur daily. They can occur daily. These episodes began at age [age] year old 3. Head drops for few seconds. She may fall or not with these events. No LOC. These events can occur 2-3 times a week. 4. Arms jerks or whole body jerks that can happen when she is watching TV or sleeping. They may occur daily as well. She bejarano snot recall when did she began experiencing them. Patient was admitted to [facility] with Breakthrough seizures a few days after she delivered her baby in August 2022. Hospital stay was complicated by multiple clusters of generalized seizures (most of them untested, but was dialeptic with eye lid fluttering when tested). Several AED changes were made eventually adding Ethosuximide. Nexplanon was explanted and Depo-provera was used in its place as patient felt that her seizures were worse after nexplanon. AED changes during 08/2022 admission Keppra 4000 mg BID -> 2000 mg BID (10/01/2022)-> 3000 BID (10/03/2022) Level elevated at 113.5 on 09/29/2022 Onfi 20 mg BID level normal on 09/26/2022 Zonisamide 300 mg BID level normal on 09/26 Vimpat 250 mg BID level normal on 09/26-> 300 BID (10/03/2022) Fycompa (perampanel) 2mg started 09/30/2022-> 4 mg (10/02/2022) [ bolus of 8 mg given on 10/01/2022]-> 6mg [10/03] VPA 250 BID [10/02/2022]-> D/C 10/06/2022 Ammonia levels were elevated. Klonapin 0.5 mg BID [ 10/03]-> 0.5 mg TID [10/04/2022] Zarontin 250 mg BID [10/04/2022] Current AEDs ? Keppra 3000 mg BID ? Vimpat 300 mg BID ? Onfi 20 mg BID ? Zonisamide 300 mg BID ? Fycompa 4 mg QHS ? Klonapin 0.5 mg TID ? Ethosuzimide (Zarontin) 250 mg BID to be taken with sarath (more content not included)... Normal [facility] CNNURSEon 01-22-2024 CNNURSE Nurse Visit (OBGYWM) KIKI WARE ([id number]) 2 F Date Time Provider Department 01/22/24 2:00 PM NURSE AUTOMOTIVE SERVICE TECHNICIAN [facility] WSTR OBGYWM During your visit today, we recorded the following information about you: Blood pressure Weight 118/74 93.4 kg Zenia Tracy LPN 01/22/2024 12:24 PM Signed Patient identified by name and date of . Kiki Ware is here for a Depo Provera injection. Patient brought medication. Date last injected: first depo provera- negative test Depo-Provera, 150 mg, administered IM left upper quadrant gluteus, Lot # [id number], expiration date 07/31/2027. Depo-Provera was given without incident. Date of last menses: Patient's last menstrual period was 01/05/2024 (exact date). Irregular bleeding - yes Menses ceased - No STD prevention discussed: Yes Patient instructed to return to clinic in 12 weeks. [email or web address] Provider Ariel Gutierrez was present in office at time of injection. MIGUEL A Cody Annalee, LPN 01/22/2024 11:40 AM Signed DEPO-PROVERA control is a way for men and women to prevent . There are many different methods of control; some types also protect against sexually transmitted diseases. Depo-Provera is a control method for women. It is made up of a hormone similar to progesterone and is given as a shot into the woman's arm or buttocks. Each shot provides protection against for up to 14 weeks, but the shot must be received once every 3 months. Depo-Provera does not protect against sexually transmitted diseases. Where can I get Depo-Provera? You must receive the shot from a doctor. The shot is usually given within five days of the beginning of your menstrual period. How is Depo-Provera used? Once the shot has been given, no additional steps are needed to prevent . With Depo-Provera, you must receive another shot once every three months to remain fully protected. How soon does it work? Protection begins immediately after the first shot if given during a menstrual period. How effective is Depo-Provera? Depo-Provera is 99% effective in preventing . Can any woman use Depo-Provera? Most women can use Depo-Provera. However, it is not recommended for women who have: Unexplained vaginal bleeding Liver disease Breast cancer Blood clots Are there side effects associated with Depo-Provera? Depo-Provera can cause a number of side effects, including: Irregular menstrual periods, or no periods at all Headaches Nervousness Depression Dizziness Acne Changes in appetite Weight gain Excessive growth of facial and body hair Hair loss You should discuss the potential side effects of Depo-Provera with your doctor. Most of the side effects are not common. Change in the menstrual cycle is the most common side effect. You may experience irregular bleeding or spotting. After a year of use, about 50% of women will stop getting their periods. Their periods usually return when they discontinue the shots. Can I become after I stop using Depo-Provera? With Depo-Provera, you could become as soon as 12 to 14 weeks after your last shot. It may take some women up to a year or two to conceive after they stop using this type of control. Does Depo-Provera protect against sexually transmitted diseases? No. To help protect yourself from STDs, use a male condom each time you and your partner have sex. What are the advantages of using Depo-Provera? You don't have to remember to take it every day or use it before sex. It provides long-term protection as long as you get the shot every three months. It doesn't interfere with sexual activity. It's over 99% effective. It's less expensive than the Pill. What are the disadvantages of using Depo-Provera? It can cause unwanted side effects. It does not provide protection against sexually transmitted diseases. It can cause irregular menstrual periods. You need to stop taking Depo-Provera several months ahead of time if you plan to become . Regular doctor visits can be inconvenient. ? Copyright [id number] The [facility]. All rights reserved This information is provided by the [facility] and is not intended to replace the medical advice of your doctor or health care provider. Please consult your health care provider for advice about a specific medical condition. For additional written health information, please contact the Health Information Center at the [facility] or toll-free extension [phone]. This document was last reviewed on: 2004 Allergies As of Date: 01/22/2024 Noted Allergy Reaction DEPAKOTE (DIVALPROEX) 07/23/2021 14 - Other: See Comments Comments: Abnormal (more content not included)... Normal [facility] UA DIP,URINE HCG (POC)on Beta HCG ( test) Ql (U) Negative Negative [facility] Comment on above: Location:[facility], [facility], [place], [place], [facility] Lining Layer (POCT) Internal QC OK [facility] Location:[facility], [facility] [place], [place], [address] [place] [address] POINT OF CARE [facility] B-HCG SerPl-aCncon 4 HCG.beta subunit Qn m[IU]/mL Normal <5.0 [facility] Comment on above: Order Comment: Speci men Type: BLOOD SPECIMEN Ordering Facility: [facility] Address: [address] [place] [address] Result Comment: Didi zamarripa Performed By: #### 5 195-3, 53314-7, 50845-1 #### [facility] CLIA [id number] [address] [place] [address] [place] C. trachomatis+N. gonorrhoea e DNA EKATERINA+probe Ql (Unsp spec)on 01-14-2024 C. trachomatis rRNA EKATERINA+probe Ql (Unsp spec) Negative Normal Negative for Chlamydia trachomatis by amplificaton [facility] Comment on above: Order Comment: Speci men Type: SWABOrdering Facility: [facility] Address: [address] [place] [address] Performed By: #### T RVAMP, 20573-1 ####[facility]CLIA [id number] [place] [address] [place] N. gonorrhoeae rRNA EKATERINA+probe Ql (Unsp spec) Negative Normal Negative for Neisseria gonorrhoeae by amplification [facility] Comment on above: Order Comment: Speci men Type: SWABOrdering Facility: [facility] Address: [address] [place] [address] Performed By: #### T RVAMP, 85409-8 ####[facility]IA [id number] [facility] [place] CNOVon 01-14-2024 CNOV Office Visit (OBGYWM ) KIKI WARE ([id number]) 2 F Date Time Provider Department 01/14/24 10:15 AM ARIEL GUTIERREZ OBSILVIA During your visit today, we recorded the following information about you: Pulse Respiration Blood pressure Weight 98/minute 16/minute 114/82 96.2 kg Height Last Period 1.625 m 01/05/24 Ariel Gutierrez APRN.CNP 01/14/2024 11:29 AM Signed Boomswing Operator offered: Patient Erinjovanny is a 23 year old who presents for an annual gynecologic exam without complaints. Would like STD testing done. Menses: irregular, lasting 7 days Contraception: none HPV vaccine: No Last Pap: never HPV: never History of abnormal pap: No Last mammogram: never Sexually active: No History of STDS: None Patient concerns for STD exposure: No. 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) 09/03/2022: Prematurity of fetus No date: Traumatic brain injury (HCC) Comment: concussion at age year oldPAST SURGICAL HISTORY 09/24/2022: DELIVERY ONLY Comment: LTCS No date: PAST SURGICAL HISTORY OF Comment: VNS implant, vagal nerve stimulator- approx in 2016 FAMILY HISTORY Problem Relation Age of Onset No Known Problems Father Thyroid Cancer Mother No Known Problems Brother Asthma Brother outgrown asthma Allergies Brother other (drug overdose) Brother other (MVA) Brother Allergies Brother No Known Problems Sister other (retina cancer) Maternal Grandfather Uterine Cancer Maternal Grandmother No Known Problems Paternal Grandfather COPD Paternal Grandmother Diabetes Maternal Aunt SOCIAL HISTORY Social History Tobacco Use Smoking status: Never Passive exposure: Current Smokeless tobacco: Never Tobacco comments: smoking outside per mom Vaping Use Vaping Use: Never used Substance Use Topics Alcohol use: Not Currently Drug use: Not Currently Types: Marijuana REVIEW OF SYSTEMS Abdomen: No abdominal pain, nausea, vomiting, diarrhea, or constipation. No bloating, early satiety, indigestion, or increased flatulence. Bladder: No dysuria, gross hematuria, urinary frequency, urinary urgency, or incontinence. Breast: No breast lumps, nipple d/c, overlying skin changes, redness or skin retraction. Allergies and current medication updated:Yes EXAM: BP 114/82 Pulse 98 Resp 16 Ht 5' 3.984 (1.63m) Wt 212 lb (96.2kg) SpO2 97% LMP 01/05/2024 BMI 36.42 kg/(m2). GENERAL: pleasant, female in no apparent distress HEENT: Normocephalic, atraumatic, mucus membranes moist, and no lesions NECK: Supple, full range of motion, no adenopathy, and thyroid normal DERMATOLOGY: Normal, without lesions, non-icteric, and non-hirsute BREAST: soft, non-tender, symmetric, no dominant mass, normal nipple-areolar complex, no lymphadenopathy, and no nipple discharge CHEST: Normal inspiratory effort ABDOMEN: soft, non-tender, and no masses PELVIC: external genitalia normal, normal Bartholin's glands, urethra, [place]'s glands, no vulvar lesions, no cervical lesions, good vaginal support, physiologic discharge present, normal appearing perineal body and perianal region BIMANUAL: uterus normal size, shape and consistency, no adnexal masses, and non-tender RECTOVAGINAL: deferred. NEURO: alert and oriented x3,exam grossly non-focal EXTREMITIES: normal ASSESSMENT/PLAN: 1) Health maintenance: Pap done with reflex HPV. HPV vaccine: info provided 2) Contraception: Depo Provera. Reviewed r/b. To return for nurse visit. 3) STD screening: Accepted full STD check 4) Follow up one year or sooner as needed Ariel Gutierrez APRN.Ariel Harp APRN.CNP 01/14/2024 10:57 AM Signed A 3-dose schedule is recommended for people who get the first dose on or after their 15th birthday, and for people with certain immunocompromising conditions. In a 3-dose series, the second dose should be given 1-2 months after the first dose, and the third dose should be given 6 months after the first dose (0, 1-2, 6-month schedule). The minimum intervals are 4 weeks between the first and second dose, 12 weeks between the second and third doses, and 5 months between the first and third doses. If a vaccine dose is administered after a shorter interval, it should be re-administered after another minimum interval has elapsed since the most recent dose. If the vaccination schedule is interrupted, vaccine doses do not nee (more content not included)... Normal [facility] 01-14-2024 STEPHANIE Telephone (OBGYWM) KIKI WARE ([id number]) 2 F Date Time Provider Department 01/14/24 ARIEL GUTIERREZ During your visit today, we recorded the following information about you: Ariel Gutierrez APRN.CNP 01/14/2024 1:45 PM Signed Please notify patient: Reviewed Depo with her neurologist, Dr. Tellez. Kiki and I discussed possible interaction with Depo and Onfi, another medication she is on. There is a potential interaction and risk for contraception failure. The contraception option without any potential for interaction is IUD (copper or progesterone only). IUD is the best option for contraception in this case. However, if she is not willing, Depo is better than no contraception. We would still recommend a back up form of contraception - such as condoms if possible as Onfi does have the potential to cause harm to a developing fetus. She has an upcoming appt with neuro she can discuss this more with or can follow up with me on any further questions. Ariel Gutierrez APRN.Radha Godinez RN 01/16/2024 2:35 PM Signed [employer] message sent to Pt by and Pt viewed on 01/15. Radha Holt RN Allergies As of Date: 01/14/2024 Noted Allergy Reaction DEPAKOTE (DIVALPROEX) 07/23/2021 14 - Other: See Comments Comments: Abnormal LFTs Date Reviewed: 01/14/2024 Reviewed by: Ariel Gutierrez APRN.MEDICAL OFFICE COORDINATOR - Fully Assessed Reason for Visit: Patient Update [1234] Prescriptions as of 01/16/2024 - medroxyPROGESTERone (DEPO-PROVERA) 150 mg/mL Inject 1 mL intramuscularly every 12 weeks. - cloBAZam (ONFI) 10 mg tab tablet Take 2 tablets by mouth two times a day for 180 days. - perampanel (FYCOMPA) 4 mg tablet Take 1 tablet by mouth daily at bedtime for 90 days. - zonisamide (ZONEGRAN) 100 mg capsule Take 3 capsules by mouth two times a day. - levETIRAcetam (KEPPRA) 1,000 mg tablet Take 3 tablets by mouth two times a day. - lacosamide (VIMPAT) 150 mg tab Take 2 tablets by mouth two times a day for 180 days. - ethosuximide (ZARONTIN) 250 mg capsule Take 1 capsule by mouth two times a day. - clonazePAM (KLONOPIN) 0.5 mg tablet Take 1 tablet by mouth three times a day for 180 days. - folic acid 1 mg tablet Take 2 tablets by mouth twice daily. Facility-Administered Medications as of 01/16/2024 - medroxyPROGESTERone 150 mg injection (DEPO-PROVERA) Problem List As Of Date 01/14/2024 Noted Resolved Breakthrough seizure (HCC) [G40.919] 10/06/2008 ADD (attention deficit disorder) [F98.8] 12/14/2009 09/03/2022 S/P placement of VNS (vagus nerve stimulation) *03/09/2021 Generalized epilepsy (HCC) [G40.309] 07/23/2021 09/03/2022 Nicotine use disorder, F17.2 [F17.200] 07/24/2021 08/27/2022 Supervision of high risk , antepartum *02/12/2022 09/03/2022 related nausea, antepartum [O26.899, *02/28/2022 09/03/2022 Patient request for diagnostic testing [Z01.89] 02/28/2022 08/27/2022 Obesity affecting , antepartum [O99.21*03/26/2022 Vaginal bleeding in , second trimester*04/23/2022 08/27/2022 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 Comment on above: Order Comment: Speci men Type: BLOOD SPECIMEN Ordering Facility: [facility] Address: [address] [place] [address] Performed By: #### 5 195-3, 56965-2, 36892-9 #### [facility] CLIA [id number] [address] [place] [address] [place] HCV Ab Ql (S)on 01-14-2024 Interpretation and review of laboratory results Normal [facility] HCV Ab Ser Qlon 01-14-2024 HCV Ab Ql (S) Negative Normal Negative [facility] Comment on above: Order Comment: Speci men Type: BLOOD SPECIMEN Ordering Facility: [facility] Address: [address] [place] [address] Result Comment: The result suggests no evidence of active infection with Hepatitis C virus. Should recent infection be suspected, repeat testing may be considered 4-6 weeks after this draw. Performed By: #### 5 195-3, 26555-6, 09101-4 #### [facility] CLIA [id number] [address] [place] [address] [place] HEPATITIS C ANTIBODY IA WITH CONFIRMATIONon 01-14-2024 HCV Ab Ql (S) Negative Negative [facility] Comment on above: The result suggests no evidence of active infection with Hepatitis C virus. Should recent infection be suspected, repeat testing may be considered 4-6 weeks after this draw. HIV 1+2 Ab IA Qlon HIV 1 and 2 Ab IA.rapid Nom (S/P/Bld) Normal [facility] Comment on above: Order Comment: Speci men Type: BLOOD SPECIMEN Ordering Facility: [facility] Address: [address] [place] [address] Result Comment: Test not indicated. Performed By: #### 5 195-3, 75737-6, 50405-1 #### [facility] CLIA [id number] [address] [place] [address] [place] HIV 1+2 Ab+HIV1 p24 Ag IA Ql Non-Reactive Normal Nonreactive [facility] Comment on above: Order Comment: Speci men Type: BLOOD SPECIMEN Ordering Facility: [facility] Address: [address] [place] [address] Performed By: #### 5 195-3, 07712-6, 30980-4 #### [facility] CLIA [id number] [address] [place] [address] [place] HIV immunoassay testing algorithm interpretation (S/P/Bld) [Interp] Normal [facility] Comment on above: Order Comment: Speci men Type: BLOOD SPECIMEN Ordering Facility: [facility] Address: [address] [place] [address] Result Comment: No e vidence of HIV-1 or HIV-2 infection. Should recent infection be suspected, repeat testing may be considered 2-3 weeks after this draw. [place] Rev. Code 3701.243(E): This information has been disclosed to you from confidential records protected from disclosure by state law. ???You shall make no further disclosure of this information without the specific, written, and informed release of the individual to whom it pertains or as otherwise permitted by state law. A general authorization for the release of medical or other information is not sufficient for the purpose of the release of HIV test results or diagnoses. Performed By: #### 5 195-3, 02577-7, 43367-5 #### [facility] CLIA [id number] [address] [place] [address] [place] PAP TESTon 01-14-2024 ADEQUACY Normal [facility] Comment on above: Order Comment: Speci men Type: BLOOD SPECIMEN Ordering Facility: [facility] Address: [address] [place] [address] Result Comment: Sati sfactory for interpretation. No endocervical component Performed By: #### 5 195-3, 73904-6, 70761-9 #### [facility] CLIA [id number] [address] [place] [address] [place] CASE REPORT Normal [facility] Comment on above: Order Comment: Speci men Type: BLOOD SPECIMEN Ordering Facility: [facility] Address: [address] [place] [address] Result Comment: Gyne cologic Cytology Report Case: [id number] Authorizing Provider: Ariel Gutierrez APRN.MEDICAL OFFICE COORDINATOR Collected: 01/14/2024 11:15 AM Ordering Location: OB/Gynecology Received: 01/14/2024 12:11 PM First Screen: [place], [place], [place], ASCP Specimen: Pap Test, ThinPrep, Cervix Performed By: #### 5 195-3, 72230-5, 56407-8 #### [facility] CLIA [id number] [address] [place] [address] [place] CLINICAL HISTORY, CYTOLOGY, JOURNEYMAN PLUMBER Routine Exam Normal [facility] Comment on above: Order Comment: Speci men Type: BLOOD SPECIMEN Ordering Facility: [facility] Address: [address] [place] [address] Performed By: #### 5 195-3, 45771-4, 72130-3 #### [facility] CLIA [id number] [address] [place] [address] [place] FINAL PERFORMING LAB Normal [facility] Comment on above: Order Comment: Speci men Type: BLOOD SPECIMEN Ordering Facility: [facility] Address: [address] [place] [address] Result Comment: Tech nical component, field case manager screening performed at [facility], [address] [place], [place] [id number] CLIA# [id number] Diagnostic interpretation performed at [facility], [address] [place] [address] CLIA# [id number] Commissioner Conservation Of Resources: Stanislaw Gutiérrez M.D. Performed By: #### 5 195-3, 48095-0, 18471-7 #### [facility] CLIA [id number] [address] [place] [address] [place] HPV REFLEX HPV if Atypical Normal [facility] Comment on above: Order Comment: Speci men Type: BLOOD SPECIMEN Ordering Facility: [facility] Address: [address] [place] [address] Performed By: #### 5 195-3, 12849-7, 29263-6 #### [facility] CLIA [id number] [address] [place] [address] [place] INTERPRETATION, CYTOLOGY, JOURNEYMAN PLUMBER Normal [facility] Comment on above: Order Comment: Speci men Type: BLOOD SPECIMEN Ordering Facility: [facility] Address: [address] [place] [address] Result Comment: Nega tive for intraepithelial lesion or malignancy. Performed By: #### 5 195-3, 78722-3, 01908-3 #### [facility] CLIA [id number] [address] [place] [address] [place] LMP 01/05/2024 Normal [facility] Comment on above: Order Comment: Speci men Type: BLOOD SPECIMEN Ordering Facility: [facility] Address: [address] [place] [address] Performed By: #### 5 195-3, 58940-7, 87944-8 #### [facility] CLIA [id number] [address] [place] [address] [place] PAP DISCLAIMER COMMENT The Pap Smear is a screening test for cervical cancer. False negative results occur with all screening tests, emphasizing the need for rescreening at recommended intervals, and clinical correlation. Normal [facility] Comment on above: Order Comment: Speci men Type: BLOOD SPECIMEN Ordering Facility: [facility] Address: [address] [place] [address] Performed By: #### 5 195-3, 50578-6, 78486-3 #### [facility] CLIA [id number] [address] [place] [address] [place] PAP WIND TURBINE SERVICE TECHNICIAN COMMENT This specimen has been analyzed by the ThinPrep Imaging System, an automated imaging and review system, which assists the laboratory in evaluating cells on ThinPrep Pap tests. Following automated imaging, selected pearce from every slide are reviewed by a field case manager. Normal [facility] Comment on above: Order Comment: Speci men Type: BLOOD SPECIMEN Ordering Facility: [facility] Address: [address] [place] [address] Performed By: #### 5 195-3, 14951-1, 48696-1 #### [facility] CLIA [id number] [address] [place] [address] [place] Reagin and Treponema pallidu m IgG and IgM [Interp]on 01-14-2024 T. pallidum IgG+IgM IA Ql (S) Non-Reactive Normal Nonreactive [facility] Comment on above: Order Comment: Speci men Type: BLOOD SPECIMEN Ordering Facility: [facility] Address: [address] [place] [address] Performed By: #### 5 195-3, 14631-0, 96255-9 #### [facility] CLIA [id number] [address] [place] [address] [place] Reagin+T pallidum IgG+IgM Se rPl-Impon 01-14-2024 Reagin and Treponema pallidum IgG and IgM [Interp] Cannot exclude recent Treponemal infection if specimen collected within 7-10 days after appearance of suspect lesions or 2-3 weeks after an exposure. Clinical correlation is required. Normal [facility] Comment on above: Order Comment: Speci men Type: BLOOD SPECIMEN Ordering Facility: [facility] Address: [address] [place] [address] Performed By: #### 5 195-3, 91948-1, 14382-7 #### [facility] CLIA [id number] [address] [place] [address] [place] TRICHOMONAS VAGINALIS NAATon 01-14-2024 T. vaginalis DNA EKATERINA+probe Ql (Unsp spec) Negative Normal Negative for Trichomonas vaginalis by amplification [facility] Comment on above: Order Comment: Speci men Type: SWABOrdering Facility: [facility] Address: [address] [place] [address] Performed By: #### T RVAMP, 28761-4 ####[facility] [id number] [place] [address] [address] [place] [facility] CNOVon 07-16-2023 CNOV Office Visit ([facility]EEP[facility] ) KIKI WARE ([id number]) 2 F Date Time Provider Department 07/16/23 10:40 AM RUBEN TELLEZ During your visit today, we recorded the following information about you: Pulse Respiration Blood pressure Weight 112/minute 18/minute 131/88 88.9 kg Height 1.6 m Ruben Tellez MD 07/16/2023 11:56 AM Addendum Summary of the things we discussed today: Increased VNS settings from 1mA to 1.25mA current out put. Continue the same dose of Fycompa for now at 4 mg. We will have you follow up with our pharmacist Karla. Continue control as you are doing. Given the number of seizure medications you are on, it does increase the chances of complications and complications for babies. Seizure precautions - No driving in the [facility] until seizure free for 6 months. Please check with local state authorities for state specific driving regulations. - No operating heavy machines - No swimming without supervision or bathing in a bathtub due to risk of drowning in the event of a seizure. Patient may shower. - Avoid unsafe heights, including ladders, due to risk of fall-related injury in the event of a seizure. - Seizure precipitating factors discussed including not taking seizure medications as prescribed, stress, excessive caffeine intake, energy drinks, alcohol, sleep deprivation or any identifiable seizure precipitating factor. Ruben Tellez MD Associate Staff, Epilepsy [facility] July 16, 2023 Office phone: [phone] Ruben Tellez MD 07/16/2023 12:13 PM Signed [facility] Patient Name: Kiki Ware Date of : 2000 ESTABLISHED EPILEPSY CLINIC NOTE 07/16/2023 10:40 AM Reason for Visit: Follow Up, Epilepsy, and VNS Visit Clinical Summary: Ms. Ware is a 22 year old right-handed female seen in [facility]. There is no one accompanying the patient during today's visit. 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 Mother reports that she was at school. A week later she experienced another one. She did not experience another one until she was 12 year old when she experienced a prolonged GTC seizure for 10 minutes. AT that time she was started on Keppra. Keppra decreased the frequency of GTC seizures but AEDs were changed or added overtime. Mother thinks that when Depakote was added seizures became better controlled. Levels were high at some point and AEDs changes continued to be made: Mother reports different seizure types overtime: 1.GTC seizures, her last one was 2 years ago 2. Eye fluttering with absence at times that they can occur daily. They can occur daily. These episodes began at age [age] year old 3. Head drops for few seconds. She may fall or not with these events. No LOC. These events can occur 2-3 times a week. 4. Arms jerks or whole body jerks that can happen when she is watching TV or sleeping. They may occur daily as well. She bejarano snot recall when did she began experiencing them. Patient was admitted to [facility] with Breakthrough seizures a few days after she delivered her baby in August 2022. Hospital stay was complicated by multiple clusters of generalized seizures (most of them untested, but was dialeptic with eye lid fluttering when tested). Several AED changes were made eventually adding Ethosuximide. Nexplanon was explanted and Depo-provera was used in its place as patient felt that her seizures were worse after nexplanon. AED changes during 08/2022 admission Keppra 4000 mg BID -> 2000 mg BID (10/01/2022)-> 3000 BID (10/03/2022) Level elevated at 113.5 on 09/29/2022 Onfi 20 mg BID level normal on 09/26/2022 Zonisamide 300 mg BID level normal on 09/26 Vimpat 250 mg BID level normal on 09/26-> 300 BID (10/03/2022) Fycompa (perampanel) 2mg started 09/30/2022-> 4 mg (10/02/2022) [ bolus of 8 mg given on 10/01/2022]-> 6mg [10/03] VPA 250 BID [10/02/2022]-> D/C 10/06/2022 Ammonia levels were elevated. Klonapin 0.5 mg BID [ 10/03]-> 0.5 mg TID [10/04/2022] Zarontin 250 mg BID [10/04/2022] Current AEDs ? Keppra 3000 mg BID ? Vimpat 300 mg BID ? Onfi 20 mg BID ? Zonisamide 300 mg BID ? Fycompa 6 mg QHS ? Klonapin 0.5 mg TID ? Ethosuzimide (Zarontin) 250 mg BID to be taken with food. Folic acid 1 mg daily VNS implanted in Jan 2017 Patient was unable to finish high school due to frequenct seizures. Mother reports that she used to be in an accelarated class in the past. Multi (more content not included)... Normal [facility] Abdomen Single Viewon 2022 Abdomen Single View [facility] [address] [place] [address] Abdomen Single View MR#: [id number] Acct: [id number] Name: KIKI WARE Rep #: [id number] : 2000 F 22 From: Luiz Rutherford MD PCP: Care Physician,No Primary Status: REG ER Study: Abdomen Single View Date of Exam: 05/02/23 Exam# [id number] Ordering Dr: Miranda Randall MD [id number] INDICATION: rectal FB, removed EXAMINATION/TECHNIQUE : X-RAY - XR Abdomen 1 View COMPARISON: 05/24/2016 __ FINDINGS: BOWEL GAS PATTERN: Non-obstructive. No bowel or stomach distention. FREE AIR: Not assessed on a single supine view. ORGANOMEGALY: Not seen. CALCIFICATIONS: No abnormal calcifications observed. LOWER CHEST: No acute pathology. BONES AND SOFT TISSUES: No acute findings. No radiodense foreign body. RAD/Abdomen Single View IMPRESSION: No residual radiodense foreign body. Electronically Signed: Luiz Rutherford MD at 19:37 EST , CC: Dr. Miranda Randall MD; No Primary Care Physician Social Worker Psychiatric: Signed Normal [facility] Emergency Department Summary on 05-02-2023 Emergency Department Summary [facility] Medical Records Department [address] [place] [address] Emergency Department Summary 05/02/23 MR#: [id number] Acct: [id number] Name: KIKI WARE Rep #: [id number] : 2000 22 From: Miranda Randall MD PCP: Care Physician,No Primary Status:DEP ER Location: ED HPI History of Present Illness Chief Complaint: Foreign Body Informant: patient Narrative Narrative: Patient presents secondary to rectal foreign body. She states she was giving herself an enema 2 days ago when the enema tip became unscrewed and lodged in her rectum. She has not been able to remove this. No significant abdominal pain. No blood from the rectum. [facility] Medical History Depression Seizure Home Medications lacosamide 100 mg tablet (Vimpat) 200 mg PO BID 10/24/16 [History Last Taken Unknown] levetiracetam 500 mg tablet 1,575 mg PO BID 02/28/17 [History Last Taken Unknown] zonisamide 100 mg capsule (Zonegran) 200 mg PO DAILY 02/28/17 [History Last Taken Unknown] clobazam 20 mg tablet (Onfi) 20 mg PO BID 08/28/21 [History Last Taken Unknown] zonisamide 100 mg capsule 300 mg PO QHS 08/28/21 [History Last Taken Unknown] clonazepam 0.5 mg tablet 0.5 mg PO DAILY PRN Seizure Activity 10/28/21 [History Last Taken Unknown] Allergy/AdvReac Type Severity Reaction Status Date / Time divalproex sodium Allergy Other Verified 05/02/23 17:31 [From [facility]] Social History Smoking Status: Never smoker ROS ROS ED Constitutional Constitutional ED: Denies chills or fever(s) Cardiovascular Cardiovascular: Denies chest pain Respiratory/Chest Respiratory/Chest: Denies cough or dyspnea Gastrointestinal Gastrointestinal: Denies abdominal pain, nausea or vomiting Musculoskeletal Musculoskeletal: Denies back pain or extremity pain Integumentary Denies Abrasions or rash Neurologic Neurologic: Denies headache(s) or weakness Psychiatric Psychiatric: Denies anxiety or depression Allergic/Immunologic Allergic/Immunologic ED: Denies lip swelling or urticaria EXAM Physical Exam Const Vital Signs: 05/02/23 17:31 05/02/23 18:22 Temperature 98.2 F Temperature Source Temporal Pulse Rate 87 Respiratory Rate 14 Respiratory Pattern Normal Blood Pressure 129/85 H Blood Pressure Mean 99 Pulse Ox 100 Oxygen Delivery Method Room Air Positive well nourished and well developed General Appearance ED: well developed HEENT Reports moist mucous membranes Eyes EOMs intact bilaterally Chest Wall inspection of chest normal and palpation of chest normal Resp normal respiratory effort and clear to auscultation bilaterally Cardio regular rate and regular rhythm GI non-tender Palpation: soft Neuro oriented x3 Psych mental status grossly normal Skin no rashes or lesions noted MDM MDM MDM Narrative Medical decision making narrative: Patient consented for rectal exam. With nurse personal trainer in the room patient is placed in left lateral position. Foreign body is palpated in the rectum. This was easily removed by myself. Patient will undergo x-ray to ensure no abnormal bowel gas pattern. She denies possibility of . Abdominal x-ray per my interpretation reveals no evidence of remaining radiopaque foreign body. Nonobstructive bowel gas pattern is noted with no free air. Radiology interpretation reviewed and agrees. Patient be discharged home at this time. Return instructions given. Radiography Diagnostic Testing: Clinical Impression(s) from Imaging Studies KUB X-Ray 05/02/23 19:05 IMPRESSION: No residual radiodense foreign body. Electronically Signed: Luiz Rutherford MD at 19:37 EST Reading Location ID and State: [facility] / [place] Tel , Service support , Discharge Plan Triage Chief Complaint: Foreign Body ED Provider: Miranda Randall Dx/Rx/DC Orders Clinical Impression: Rectal foreign body Instructions: ED Rectum Foreign Object Removed Prescriptions: No Action lacosamide [Vimpat] 100 MG tablet 200 mg PO BID levetiracetam 500 MG tablet 1,575 mg PO BID zonisamide [Zonegran] 100 MG capsule 200 mg PO DAILY zonisamide 100 mg Capsule 300 mg PO QHS clobazam [Onfi] 20 mg Tablet 20 mg PO BID clonazepam 0.5 mg tablet 0.5 mg PO DAILY PRN (Reason: Seizure Activity) Patient Comments: TAKE 1 TABLET BY MOUTH NEEDED FOR UP TO 10 DOSES. Primary Care Provider: Care Physician,No Primary Referrals: Renée Corbett MD [Non-Staff] - Erick Cam MD [Med Staff - Active Staff] - As Needed Disposition Disposition: Home, Self Care What to do if you have Problems For (more content not included)... Normal [facility] No Panel Informationon 05-02 status Negative neg - pos [facility] Quality Check Yes [facility] HCG QUAL UR B/Oon 03-31-2023 status Negative neg - pos [facility] Quality Check Yes [facility] UA DIP, URINE (POC)on 2022 BILIRUBIN UA (POCT) Negative Negative [facility] CLARITY UA (POCT) Clear [facility] COLOR UA (POCT) Yellow [facility] GLUCOSE UA (POCT) Negative Negative mg/dL [facility] Hemoglobin Ql (U) Negative Negative [facility] KETONE UA (POCT) Negative Negative mg/dL [facility] LEUKOCYTES UA (POCT) Trace Abnormal Negative [facility] NITRITE UA (POCT) Negative Negative [facility] PH UA (POCT) 7.0 4.5 - 8.0 [facility] Protein Ql (U) Negative Negative mg/dL [facility] SPECIFIC GRAVITY UA (POCT) 1.015 1.005 - 1.030 [facility] [facility] UROBILINOGEN UA (POCT) 0.2 E.U./dL Normal E.U./ dL [facility] URINE OB DIP B/Oon 3 Glucose Ql (U) Negative Neg mg/dL [facility] Protein.monoclonal (U) [Mass/Vol] Negative Neg mg/dL [facility] Gel ABOon 09-15-2022 ABO/Rh Interp Positive Invalid Interpretation Code [facility] ([place]) Comment on above: Order Comment: Reaso n: Blood on Hold No Orders to Transfuse Performed By: #### R CO, CMP, GFR, ANEU, CBC, LD, ADIFF #### [place] [address] Gel ABSon 09-15-2022 Antibody Screen Gel Negative Normal [facility] ([place]) Comment on above: Order Comment: Reaso n: Blood on Hold No Orders to Transfuse Performed By: #### R CO, CMP, GFR, ANEU, CBC, LD, ADIFF #### [address] [address] LABORATORYOrdered By: Shade Pires on 09-14-2022 ABO/Rh Interp Positive Invalid Interpretation Code AO BB SS Antibody Screen Gel Negative ABSC (09/14/22 9:54 PM) Invalid Interpretation Code AO BB SS BIOPHYSICAL PROFILE [facility] 09-12-2022 [facility] BIOPHYSICAL PROFILE US [facility] 09-04-2022 [facility] URINE OB DIP B/Oon 3 Glucose Ql (U) Negative Neg mg/dL [facility] Protein.monoclonal (U) [Mass/Vol] Negative Neg mg/dL [facility] Absolute lymphocyte countOrd ered By: Dr. Reza on 08-24-2022 Lymphocytes Auto (Unsp spec) [#/Vol] 2.15 10*3/uL 0.83-4.51 [facility] Basophil percentageOrdered B y: Dr. Reza on 08-24-2022 Basophils/100 WBC (Bld) 0.5 % 0-1 [facility] Bilirubin [Mass/Vol] mg/dL 0.20-1.00 [facility] Comment on above: For patients on eltr ombopag therapy, use of Dimension [place] TBIL is not recommended. Chloride [Moles/Vol] 110 mmol/L 98-107 [facility] Eosinophils/100 WBC (Bld) 3.0 % 0-5 [facility] Glucose [Mass/Vol] 132 mg/dL 74-106 [facility] Comment on above: Fasting Glucose resu lt greater than or equal to 126 mg/dL suggests DIABETES MELLITUS per A.D.A. criteria. Neutrophils (Bld) [#/Vol] 8.1 10*3/uL 2.0-7.7 [facility] Neutrophils/100 WBC (Bld) 69.7 % 47-70 [facility] Potassium [Moles/Vol] 3.3 mmol/L 3.5-5.1 [facility] Protein [Mass/Vol] 6.0 g/dL 6.4-8.2 [facility] Sodium [Moles/Vol] 139 mmol/L 136-145 [facility] WBC (Bld) [#/Vol] 11.7 10*3/uL 4.4-11.0 [facility] Basophil percentage 0-5 SEEN /hpf 0-5 [facility] Bilirubin Test strip Ql (U)O rdered By: Dr. Reza on 08-24-2022 Bilirubin Ql (U) Negative Negative [facility] Blood erythrocytes count (nu mber/volume)Ordered By: Dr. Reza on 08-24-2022 RBC (Bld) [#/Vol] 4.11 10*6/uL 4.2-5.4 [facility] Blood hemoglobin measurement (mass/volume)Ordered By: Dr. Reza on 08-24-2022 Hemoglobin (Bld) [Mass/Vol] 11.7 g/dL 12.0-15.0 [facility] Blood lymphocytes/100 leukoc ytesOrdered By: Dr. Reza on 08-24-2022 Lymphocytes/100 WBC (Bld) 18.4 % 19-41 [facility] Blood monocytes/100 leukocyt esOrdered By: Dr. Reza on 08-24-2022 Monocytes/100 WBC (Bld) 6.1 % 0-10 [facility] Blood platelet mean volumeOr dered By: Dr. Reza on 08-24-2022 Platelet mean volume (Bld) [Entitic vol] 10.7 fL 6.2-12.0 [facility] Determination of erythrocyte mean corpuscular volume (MCV)Ordered By: Dr. Reza on 08-24-2022 MCV (RBC) [Entitic vol] 90.5 fL 81-99 [facility] Hematocrit Auto (Bld) [Volum e fraction]Ordered By: Dr. Reza on 08-24-2022 Hematocrit (Bld) [Volume fraction] 37.2 % 37-47 [facility] Ketones Test strip Ql (U)Ord ered By: Dr. Reza on 08-24-2022 Ketones Ql (U) Negative Negative [facility] Laboratory - Chemistry and C hemistry - challengeOrdered By: Dr. Reza on 08-24-2022 ALP [Catalytic activity/Vol] 118 U/L 45-117 [facility] ALT [Catalytic activity/Vol] 16 U/L 13-56 [facility] CO2 [Moles/Vol] 22.0 mmol/L 21.0-32.0 [facility] Globulin (S) [Mass/Vol] 3.7 g/dL 2.2-4.2 [facility] Urea nitrogen/Creatinine [Mass ratio] 9.8 mg/mg 10-20 [facility] Laboratory - Hematology and Cell countsOrdered By: Dr. Reza on 08-24-2022 Erythrocyte distribution width (RBC) [Entitic vol] 57.5 fL 35.1-43.9 [facility] Erythrocyte distribution width (RBC) [Ratio] 17.4 % 11.6-14.6 [facility] Immature granulocytes/100 WBC (Bld) 2.300 % 0.0-0.9 [facility] Comment on above: IG% - Immature Granu locytes (promyelocytes, myelocytes and metamyelocytes) > 1% indicates that a LEFT SHIFT is Present. MCH (RBC) [Entitic mass] 28.5 pg 27.0-32.0 [facility] Nucleated RBC/100 WBC (Bld) [Ratio] 0 [facility] ([facility]) [Mass/Vol]Or dered By: Dr. Reza on 08-24-2022 MCHC (RBC) [Mass/Vol] 31.5 g/dL 32-36 [facility] Mucus LM Ql (Urine sed)Order ed By: Dr. Reza on 08-24-2022 Mucus Ql (Urine sed) 0 SEEN /hpf [facility] Nitrite Test strip Ql (U)Ord ered By: Dr. Reza on 08-24-2022 Nitrite Ql (U) Negative Negative [facility] No Panel InformationOrdered By: Dr. Reza on 08-24-2022 Estimated Creatinine Clearance Calc 103.10 ml/min [facility] Estimated GFR (MDRD) Amer 132 mL/min >60 [facility] Comment on above: GFR Calc Estimated GFR (MDRD) Non-Af Amer 109 mL/min >60 [facility] Comment on above: Non- GFR Calc Platelets bldOrdered By: Dr. Reza on 08-24-2022 Platelets (Bld) [#/Vol] 253 10*3/uL 150-450 [facility] Protein Test strip Ql (U)Ord ered By: Dr. Reza on 08-24-2022 Protein Ql (U) 15 mg/dl Negative [facility] Serum or plasma albumin yogesh urement (mass/volume)Ordered By: Dr. Reza on 08-24-2022 Albumin [Mass/Vol] 2.3 g/dL 3.2-5.0 [facility] Serum or plasma albumin/glob ulin mass ratioOrdered By: Dr. Reza on 08-24-2022 Albumin/Globulin [Mass ratio] 0.6 {ratio} 0.9-2.4 [facility] Serum or plasma calcium yogesh urement (mass/volume)Ordered By: Dr. Reza on 08-24-2022 Calcium [Mass/Vol] 9.0 mg/dL 8.5-10.1 [facility] Serum or plasma creatinine m easurement (mass/volume)Ordered By: Dr. Reza on 08-24-2022 Creatinine [Mass/Vol] 0.72 mg/dL 0.55-1.02 [facility] Comment on above: The validity of the calculated GFR & GFRAA in patients over 70 years has not been determined. Clinical correlation is essential. Serum or plasma urea nitroge n measurement (mass/volume)Ordered By: Dr. Reza on 08-24-2022 Urea nitrogen [Mass/Vol] 7 mg/dL 7-18 [facility] Squamous epithelial cells de tection in urine sediment by light microscopyOrdered By: Dr. Reza on 08-24-2022 Epithelial cells.squamous LM Ql (Urine sed) 0-5 SEEN /hpf 5-10 [facility] Thin prep Papanicolaou smear with manual screeningOrdered By: Dr. Reza on 08-24-2022 Thin prep Papanicolaou smear with manual screening 10 U/L 15-37 [facility] Thin prep Papanicolaou smear with manual screening 7 5-15 [facility] Urine blood detectionOrdered By: Dr. Reza on 08-24-2022 RBC Ql (U) 50 /ul Negative [facility] RBC Ql (U) 0 SEEN /hpf 0-5 [facility] Urine clarityOrdered By: Dr. Reza on 08-24-2022 Clarity (U) Clear Clear [facility] Urine color determinationOrd ered By: Dr. Reza on 08-24-2022 Color (U) Yellow Yellow [facility] Urine glucose detectionOrder ed By: Dr. Reza on 08-24-2022 Glucose Ql (U) Normal mg/dl Normal [facility] Urine leukocyte esterase det ection by dipstickOrdered By: Dr. Reza on 08-24-2022 Leukocyte esterase Test strip Ql (U) 25 /ul Negative [facility] Urine pHOrdered By: Dr. Brendon trujillo on 08-24-2022 pH (U) 7.0 [pH] 5.0 - 8.0 [facility] Urine sediment bacteria coun t by microscopy (number/high power field)Ordered By: Dr. Reza on 08-24-2022 Bacteria LM.HPF (Urine sed) [#/Area] 2 /[HPF] None Seen [facility] Urine specific gravity measu rementOrdered By: Dr. Reza on 08-24-2022 Specific gravity (U) [Rel density] 1.010 1.002-1.030 [facility] Urobilinogen Auto test strip Ql (U)Ordered By: Dr. Reza on 08-24-2022 Urobilinogen Ql (U) Normal mg/dl Normal [facility] .Auto Diffon 08-23-2022 Basophil, Absolute 0.1 10 3/mcL Normal 0.0-0.2 [facility] ([place]) Comment on above: Performed By: #### R CO, CMP, GFR, ANEU, CBC, LD, ADIFF #### [address] [address] Basophils/100 WBC (Bld) 0.5 % Normal 0.0-2.5 [facility] ([place]) Comment on above: Performed By: #### R CO, CMP, GFR, ANEU, CBC, LD, ADIFF #### [address] [address] Eosinophil, Absolute 0.4 10 3/mcL Normal 0.0-0.4 [facility] ([place]) Comment on above: Performed By: #### R CO, CMP, GFR, ANEU, CBC, LD, ADIFF #### [address] [address] Eosinophils/100 WBC (Bld) 3.5 % Normal 0.0-7.0 [facility] ([place]) Comment on above: Performed By: #### R CO, CMP, GFR, ANEU, CBC, LD, ADIFF #### [address] [address] Lymphocyte, Absolute 2.2 10 3/mcL Normal 0.8-3.9 [facility] ([place]) Comment on above: Performed By: #### R CO, CMP, GFR, ANEU, CBC, LD, ADIFF #### [address] [address] Lymphocytes/100 WBC (Bld) 19.4 % Normal 10.0-50.0 [facility] ([place]) Comment on above: Performed By: #### R CO, CMP, GFR, ANEU, CBC, LD, ADIFF #### [address] [address] Monocyte, Absolute 0.9 10 3/mcL Normal 0.2-1.0 [facility] ([place]) Comment on above: Performed By: #### R CO, CMP, GFR, ANEU, CBC, LD, ADIFF #### [address] [address] Monocytes/100 WBC (Bld) 7.9 % Normal 1.7-13.0 [facility] ([place]) Comment on above: Performed By: #### R CO, CMP, GFR, ANEU, CBC, LD, ADIFF #### [address] [address] Neutrophils/100 WBC (Bld) 68.7 % Normal 37.0-80.0 [facility] ([place]) Comment on above: Performed By: #### R CO, CMP, GFR, ANEU, CBC, LD, ADIFF #### [address] [address] .GFRon 08-23-2022 GFR 149 ml/min/1.73sqm Normal [facility] ([place]) Comment on above: Result Comment: GFR Population mean for , Non- Americans Ages 20-29 = 116 mL/min/1.73 sq.m. Ages 30-39 = 107 mL/min/1.73 sq.m. Ages 40-49 = 99 mL/min/1.73 sq.m. Ages 50-59 = 93 mL/min/1.73 sq.m. Ages 60-69 = 85 mL/min/1.73 sq.m. Ages 70+ = 75 mL/min/1.73 sq.m. Chronic Kidney Disease: Less than 60 mL/min/1.73 square meters End Stage Renal Disease: Less than 15 mL/min/1.73 square meters Performed By: #### R CO, CMP, GFR, ANEU, CBC, LD, ADIFF #### [address] [address] GFR Non- 123 ml/min/1.73sqm Normal [facility] ([place]) Comment on above: Result Comment: GFR Population mean for , Non- Americans Ages 20-29 = 116 mL/min/1.73 sq.m. Ages 30-39 = 107 mL/min/1.73 sq.m. Ages 40-49 = 99 mL/min/1.73 sq.m. Ages 50-59 = 93 mL/min/1.73 sq.m. Ages 60-69 = 85 mL/min/1.73 sq.m. Ages 70+ = 75 mL/min/1.73 sq.m. Chronic Kidney Disease: Less than 60 mL/min/1.73 square meters End Stage Renal Disease: Less than 15 mL/min/1.73 square meters Performed By: #### R CO, CMP, GFR, ANEU, CBC, LD, ADIFF #### [address] [address] .MDWon 08-23-2022 Monocyte Distribution Width 17.67 Normal 0.00-20.00 [facility] ([place]) Comment on above: Result Comment: For ED adult patients suspected of sepsis, MDW<=20.0 does not rule out sepsis or risk of sepsis Performed By: #### R CO, CMP, GFR, ANEU, CBC, LD, ADIFF #### [address] [address] .NEUABSon 08-23-2022 Neutrophil, Absolute 7.7 10 3/mcL High 2.9-6.2 [facility] ([place]) Comment on above: Performed By: #### R CO, CMP, GFR, ANEU, CBC, LD, ADIFF #### [address] [address] BMPon 08-23-2022 BUN/Creatinine Ratio 11 ratio Normal 7-27 [facility] ([place]) Comment on above: Performed By: #### R CO, CMP, GFR, ANEU, CBC, LD, ADIFF #### [address] [address] Calcium [Mass/Vol] 8.8 mg/dL Normal 8.4-10.2 [facility] ([place]) Comment on above: Performed By: #### R CO, CMP, GFR, ANEU, CBC, LD, ADIFF #### [address] [address] Chloride [Moles/Vol] 105 mmol/L Normal 98-107 [facility] ([place]) Comment on above: Performed By: #### R CO, CMP, GFR, ANEU, CBC, LD, ADIFF #### [address] [address] CO2 [Moles/Vol] 24 mmol/L Normal 22-29 [facility] ([place]) Comment on above: Performed By: #### R CO, CMP, GFR, ANEU, CBC, LD, ADIFF #### [address] [address] Creatinine [Mass/Vol] 0.62 mg/dL Normal 0.55-1.02 [facility] ([place]) Comment on above: Performed By: #### R CO, CMP, GFR, ANEU, CBC, LD, ADIFF #### [address] [address] Electrolyte Balance 11.0 mEq/L Normal 4.0-15.0 [facility] ([place]) Comment on above: Performed By: #### R CO, CMP, GFR, ANEU, CBC, LD, ADIFF #### [address] [address] Glucose [Mass/Vol] 77 mg/dL Normal 70-105 [facility] ([place]) Comment on above: Performed By: #### R CO, CMP, GFR, ANEU, CBC, LD, ADIFF #### [address] [address] Potassium [Moles/Vol] 3.7 mmol/L Normal 3.5-5.1 [facility] ([place]) Comment on above: Performed By: #### R CO, CMP, GFR, ANEU, CBC, LD, ADIFF #### [address] [address] Sodium [Moles/Vol] 140 mmol/L Normal 136-145 [facility] ([place]) Comment on above: Performed By: #### R CO, CMP, GFR, ANEU, CBC, LD, ADIFF #### [address] [address] Urea nitrogen [Mass/Vol] 7 mg/dL Normal 7-18 [facility] ([place]) Comment on above: Performed By: #### R CO, CMP, GFR, ANEU, CBC, LD, ADIFF #### [place] [id number] CBCon 08-23-2022 Erythrocyte distribution width (RBC) [Ratio] 18.4 % High 11.5-14.5 [facility] ([place]) Comment on above: Performed By: #### R CO, CMP, GFR, ANEU, CBC, LD, ADIFF #### [place] [address] Hematocrit (Bld) [Volume fraction] 35.0 % Low 37.0-47.0 [facility] ([place]) Comment on above: Performed By: #### R CO, CMP, GFR, ANEU, CBC, LD, ADIFF #### [place] [address] Hgb 11.7 G/dL Low 12.0-16.0 [facility] ([place]) Comment on above: Performed By: #### R CO, CMP, GFR, ANEU, CBC, LD, ADIFF #### [place] [address] MCH (RBC) [Entitic mass] 28.4 pg Normal 27.0-31.2 [facility] ([place]) Comment on above: Performed By: #### R CO, CMP, GFR, ANEU, CBC, LD, ADIFF #### [place] [address] MCHC 33.3 G/dL Normal 33.0-37.0 [facility] ([place]) Comment on above: Performed By: #### R CO, CMP, GFR, ANEU, CBC, LD, ADIFF #### [place] [address] MCV (RBC) [Entitic vol] 85.2 fL Normal 80.0-94.0 [facility] ([place]) Comment on above: Performed By: #### R CO, CMP, GFR, ANEU, CBC, LD, ADIFF #### [place] [address] Platelet 236 10 3/mcL Normal 130-400 [facility] ([place]) Comment on above: Performed By: #### R CO, CMP, GFR, ANEU, CBC, LD, ADIFF #### [place] [address] Platelet mean volume (Bld) [Entitic vol] 8.2 fL Normal 7.4-10.4 [facility] ([place]) Comment on above: Performed By: #### R CO, CMP, GFR, ANEU, CBC, LD, ADIFF #### [place] [id number] RBC 4.11 10 6/mcL Low 4.20-5.40 [facility] ([place]) Comment on above: Performed By: #### R CO, CMP, GFR, ANEU, CBC, LD, ADIFF #### [place] [address] WBC 11.2 10 3/mcL High 4.6-10.8 [facility] ([place]) Comment on above: Performed By: #### R CO, CMP, GFR, ANEU, CBC, LD, ADIFF #### [place] [address] DIMERon 08-23-2022 D-Dimer 268 ng/mL D-DU High 0-230 [facility] ([place]) Comment on above: Result Comment: The result of the D-Dimer test should be evaluated in the context of all the clinical and laboratory data available. In those instances where the laboratory result does not agree with the clinical evaluation, additional tests should be performed accordingly. If the D-Dimer result is used to exclude DVT or PE, the recommended cutoff value is less than 230 ng/mL. The D-Dimer result should not be used alone to rule in DVT/PE, but should be used in conjunction with a clinical pretest probability (PTP)assessment model to exclude venous thromboembolism (VTE) in outpatients suspected of deep venous thrombosis (DVT) and pulmonary embolism (PE). Performed By: #### R CO, CMP, GFR, ANEU, CBC, LD, ADIFF #### [place] [address] LABORATORYOrdered By: Teetee Stroud on 08-23-2022 Basophil, Absolute 0.1 103/mcL Invalid Interpretation Code 0.0 - 0.2 10^3/mcL AO Workflow SS Basophils/100 WBC (Bld) 0.5 % Invalid Interpretation Code 0.0 - 2.5 % AO Workflow SS Eosinophil, Absolute 0.4 103/mcL Invalid Interpretation Code 0.0 - 0.4 10^3/mcL AO Workflow SS Eosinophils/100 WBC (Bld) 3.5 % Invalid Interpretation Code 0.0 - 7.0 % AO Workflow SS Erythrocyte distribution width (RBC) [Ratio] 18.4 % Invalid Interpretation Code 11.5 - 14.5 % AO Workflow SS Fibrin D-dimer DDU (PPP) [Mass/Vol] 268 ng/mL D-DU Invalid Interpretation Code 0 - 230 ng/mL D-DU AO [employer] SS Hematocrit (Bld) [Volume fraction] 35.0 % Invalid Interpretation Code 37.0 - 47.0 % AO Workflow SS Hemoglobin (Bld) [Mass/Vol] 11.7 G/dL Invalid Interpretation Code 12.0 - 16.0 G/dL AO Workflow SS Lymphocyte, Absolute 2.2 103/mcL Invalid Interpretation Code 0.8 - 3.9 10^3/mcL AO Workflow SS Lymphocytes/100 WBC (Bld) 19.4 % Invalid Interpretation Code 10.0 - 50.0 % AO Workflow SS MCH (RBC) [Entitic mass] 28.4 pg Invalid Interpretation Code 27.0 - 31.2 pg AO Workflow SS MCHC 33.3 G/dL Invalid Interpretation Code 33.0 - 37.0 G/dL AO Workflow SS MCV (RBC) [Entitic vol] 85.2 fL Invalid Interpretation Code 80.0 - 94.0 fL AO Workflow SS Monocyte distribution width Auto (Bld) [Entitic vol] 17.67 Invalid Interpretation Code 0.00 - 20.00 AO Workflow SS Comment on above: Result Comment: For ED adult patients suspected of sepsis, MDW<=20.0 does not rule out sepsis or risk of sepsis Monocyte, Absolute 0.9 103/mcL Invalid Interpretation Code 0.2 - 1.0 10^3/mcL AO Workflow SS Monocytes/100 WBC (Bld) 7.9 % Invalid Interpretation Code 1.7 - 13.0 % AO Workflow SS Neutrophil, Absolute 7.7 103/mcL Invalid Interpretation Code 2.9 - 6.2 10^3/mcL AO Workflow SS Neutrophils/100 WBC (Bld) 68.7 % Invalid Interpretation Code 37.0 - 80.0 % AO Workflow SS Platelet mean volume (Bld) [Entitic vol] 8.2 fL Invalid Interpretation Code 7.4 - 10.4 fL AO Workflow SS Platelets (Bld) [#/Vol] 236 103/mcL Invalid Interpretation Code 130 - 400 10^3/mcL AO Workflow SS RBC (Bld) [#/Vol] 4.11 106/mcL Invalid Interpretation Code 4.20 - 5.40 10^6/mcL AO Workflow SS WBC (Bld) [#/Vol] 11.2 103/mcL Invalid Interpretation Code 4.6 - 10.8 10^3/mcL AO Workflow SS LABORATORYOrdered By: SYSTEM SYSTEM on 08-23-2022 Calcium [Mass/Vol] 8.8 mg/dL Invalid Interpretation Code 8.4 - 10.2 mg/dL AO ADM SS Chloride [Moles/Vol] 105 mmol/L Invalid Interpretation Code 98 - 107 mmol/L AO ADM SS CO2 [Moles/Vol] 24 mmol/L Invalid Interpretation Code 22 - 29 mmol/L AO ADM SS Creatinine [Mass/Vol] 0.62 mg/dL Invalid Interpretation Code 0.55 - 1.02 mg/dL AO ADM SS Electrolyte Balance 11.0 mEq/L Invalid Interpretation Code 4.0 - 15.0 mEq/L AO ADM SS GFR 149 ml/min/1.73sqm Invalid Interpretation Code AO Chemistry S GFR Non- 123 ml/min/1.73sqm Invalid Interpretation Code AO Chemistry S Glucose [Mass/Vol] 77 mg/dL Invalid Interpretation Code 70 - 105 mg/dL AO ADM SS Natriuretic peptide.B prohormone N-Terminal [Mass/Vol] 33 pg/mL Invalid Interpretation Code 0 - 125 pg/mL AO ADM SS Potassium [Moles/Vol] 3.7 mmol/L Invalid Interpretation Code 3.5 - 5.1 mmol/L AO ADM SS Sodium [Moles/Vol] 140 mmol/L Invalid Interpretation Code 136 - 145 mmol/L AO ADM SS Troponin I.cardiac DL <= 0.01 ng/mL [Mass/Vol] 4.5 ng/L Invalid Interpretation Code 0.0 - 51.4 ng/L AO ADM SS Urea nitrogen [Mass/Vol] 7 mg/dL Invalid Interpretation Code 7 - 18 mg/dL AO ADM SS Urea nitrogen/Creatinine [Mass ratio] 11 ratio Invalid Interpretation Code 7 - 27 ratio AO ADM SS PBNPon 08-23-2022 Natriuretic peptide B (Bld) [Mass/Vol] 33 pg/mL Normal 0-125 [facility] ([place]) Comment on above: Result Comment: NT-p roBNP results of less than 300 pg/mL effectively rules out acute congestive heart failure with 99% negative predictive value. Performed By: #### R CO, CMP, GFR, ANEU, CBC, LD, ADIFF #### [address] [address] TROPHSon 08-23-2022 Troponin I High Sensitivity 4.5 ng/L Normal 0.0-51.4 [facility] ([place]) Comment on above: Performed By: #### R CO, CMP, GFR, ANEU, CBC, LD, ADIFF #### [address] [address] XR CHEST 1 VIEWon 08-23-2022 XR CHEST 1 VIEW ORIGINAL EXAMINATION: ONE XRAY VIEW OF THE CHEST 08/23/2022 2:33 am COMPARISON: None. HISTORY: ORDERING SYSTEM PROVIDED HISTORY: Reason for Exam: SOB/cough/fever FINDINGS: A left-sided vagus nerve stimulator is noted. Cardiomediastinal silhouette is within normal limits. No focal consolidation, vascular congestion, large pleural effusion or pneumothorax. The osseous structures appear intact. IMPRESSION: No acute radiographic findings. I have personally reviewed the images of this examination and agree with the resident's findings and interpretation. Interpreted by: Gene Wise MD Preliminary Report By: Andrei Gallegos Electronically signed By Gene Wise MD Dictated Date: 08/23/2022 2:36:48 AM Prelim Date: 08/23/2022 2:38:40 AM Sign Date: 08/23/2022 2:58:34 AM Ordering Provider: LAURENT PANCHAL Normal [facility] ([place]) OBSTETRIC ULTRASOUND WHIon 0 08-21-2022 [facility] URINE OB DIP B/Oon 3 Glucose Ql (U) Negative Neg mg/dL [facility] Protein.monoclonal (U) [Mass/Vol] Negative Neg mg/dL [facility] URINE OB DIP B/Oon 3 Glucose Ql (U) Negative Neg mg/dL [facility] Protein.monoclonal (U) [Mass/Vol] trace Neg mg/dL [facility] URINE OB DIP B/Oon Glucose Ql (U) Negative Neg mg/dL [facility] Protein.monoclonal (U) [Mass/Vol] Negative Neg mg/dL [facility] LACOSon 07-13-2022 Desmethyllacosamide <0.6 Normal <2.6 [facility] ([place]) Comment on above: Result Comment: Expe cted concentration of patients receiving 200-400 mg/day is up to 2.5 ug/mL for Desmethyllacosamide. This test was developed and its performance characteristics determined by [facility] [place] ([facility]). It has not been cleared or approved by the FDA. -[facility] is regulated under CLIA as qualified to perform high-complexity testing. This test is used for clinical purposes. It should not be regarded as investigational or for research. Performed By: [facility] [employer] [address] [place] [address] Head Of Academic Technology: Stanislaw Gutiérrez III, M.D. CLIA#: [id number] Performed By: #### R CO, CMP, GFR, ANEU, CBC, LD, ADIFF #### [place] [address] Lacosamide Test 5.5 UG/ML Normal 2.2-19.8 [facility] ([place]) Comment on above: Result Comment: Expe cted concentration of patients receiving 200-400 mg/day is 2.2-19.8 ug/mL for Lacosamide. This test was developed and its performance characteristics determined by [facility]'s [facility] [place] ([facility]). It has not been cleared or approved by the FDA. -[facility] is regulated under CLIA as qualified to perform high-complexity testing. This test is used for clinical purposes. It should not be regarded as investigational or for research. Performed By: [facility] [employer] [address] [place] [address] Head Of Academic Technology: Stanislaw Gutiérrez III, M.D. CLIA#: [id number] Performed By: #### R CO, CMP, GFR, ANEU, CBC, LD, ADIFF #### [address] [address] Desmethyllacosamide 0.7 UG/ML Normal <2.6 [facility] ([place]) Comment on above: Result Comment: Expe cted concentration of patients receiving 200-400 mg/day is up to 2.5 ug/mL for Desmethyllacosamide. This test was developed and its performance characteristics determined by [facility] [place] ([facility]). It has not been cleared or approved by the FDA. [facility] is regulated under CLIA as qualified to perform high-complexity testing. This test is used for clinical purposes. It should not be regarded as investigational or for research. Performed By: [facility] [employer] [facility] [employer] [facility] [place] [address] Head Of Academic Technology: Stanislaw Gutiérrez III, M.D. CLIA#: [id number] Performed By: #### R CO, CMP, GFR, ANEU, CBC, LD, ADIFF #### [place] [id number] Lacosamide Test 8.9 UG/ML Normal 2.2-19.8 [facility] ([place]) Comment on above: Result Comment: Expe cted concentration of patients receiving 200-400 mg/day is 2.2-19.8 ug/mL for Lacosamide. This test was developed and its performance characteristics determined by [facility] [place] ([facility]). It has not been cleared or approved by the FDA. [facility] is regulated under CLIA as qualified to perform high-complexity testing. This test is used for clinical purposes. It should not be regarded as investigational or for research. Performed By: [facility] [employer] [address] [place] [address] Head Of Academic Technology: Stanislaw Gutiérrez III, M.D. CLIA#: [id number] Performed By: #### R CO, CMP, GFR, ANEU, CBC, LD, ADIFF #### [address] [address] [facility]amide (s) 20.5 UG/ML Normal 10.0-40.0 [facility] ([place]) Comment on above: Result Comment: This test was developed and its performance characteristics determined by [facility] and [facility] [place] ([facility]). It has not been cleared or approved by the FDA. [facility] is regulated under CLIA as qualified to perform high-complexity testing. This test is used for clinical purposes. It should not be regarded as investigational or for research. Performed By: [place] [address] Head Of Academic Technology: Stanislaw Gutiérrez III, M.D. CLIA#: [id number] Performed By: #### Z ONIS #### [address] [address] Zonisamide (s) 23.5 UG/ML Normal 10.0-40.0 [facility] ([place]) Comment on above: Result Comment: This test was developed and its performance characteristics determined by [facility] and [facility] [place] ([facility]). It has not been cleared or approved by the FDA. [facility] is regulated under CLIA as qualified to perform high-complexity testing. This test is used for clinical purposes. It should not be regarded as investigational or for research. Performed By: [place] [address] Head Of Academic Technology: Stanislaw Gutiérrez III, M.D. CLIA#: [id number] Performed By: #### R CO, CMP, GFR, ANEU, CBC, LD, ADIFF #### [address] 07-12-2022 Levetiracetam Lvl 20.7 UG/ML Normal 12.0-46.0 [facility] ([place]) Comment on above: Result Comment: This test is not suitable for patients receiving treatment with the drug brivaracetam (Briviact). The drug causes an interference that may lead to falsely elevated levetiracetam results. Reference ranges and high/low indicator flags are provided as general guidelines only. The treating physician must determine appropriate target levels/dosing based on the specific clinical situation. This test was developed and its performance characteristics determined by [facility] and [facility] [place] ([facility]). It has not been cleared or approved by the FDA. [facility] is regulated under CLIA as qualified to perform high-complexity testing. This test is used for clinical purposes. It should not be regarded as investigational or for research. Performed By: [facility] [employer] [address] [place] [address] Head Of Academic Technology: Stanislaw Gutiérrez III, M.D. CLIA#: [id number] Performed By: #### R CO, CMP, GFR, ANEU, CBC, LD, ADIFF #### [address] [address] Levetiracetam Lvl 33.0 UG/ML Normal 12.0-46.0 [facility] ([place]) Comment on above: Result Comment: This test is not suitable for patients receiving treatment with the drug brivaracetam (Briviact). The drug causes an interference that may lead to falsely elevated levetiracetam results. Reference ranges and high/low indicator flags are provided as general guidelines only. The treating physician must determine appropriate target levels/dosing based on the specific clinical situation. This test was developed and its performance characteristics determined by [facility] and [facility] [place] ([facility]). It has not been cleared or approved by the FDA. [facility] is regulated under CLIA as qualified to perform high-complexity testing. This test is used for clinical purposes. It should not be regarded as investigational or for research. Performed By: [facility] [employer] [address] [place] [address] Head Of Academic Technology: Stanislaw Gutiérrez III, M.D. CLIA#: [id number] Performed By: #### R CO, CMP, GFR, ANEU, CBC, LD, ADIFF #### [address] [address] RPRon 07-12-2022 Reagin Ab RPR Ql (S) Non-Reactive Normal Non-Reactive [facility] ([place]) Comment on above: Result Comment: The RPR test is a non-treponemal assay useful as an aid in the diagnosis of primary and secondary syphilis. It converts to positive generally within 2 weeks after the appearance of a lesion. This test is also useful for monitoring response to antibiotic therapy. A positive RPR screening test will be followed by the FTA ABS test. False positive RPR tests may occur in 1) patients with underlying autoimmune disorders, 2) elderly patients, 3) , and 4) other conditions with abnormal serum globulins. Performed By: #### R CO, CMP, GFR, ANEU, CBC, LD, ADIFF #### [address] [address] .Auto Diffon 07-11-2022 Basophil, Absolute 0.1 10 3/mcL Normal 0.0-0.3 [facility] ([place]) Comment on above: Performed By: #### R CO, CMP, GFR, ANEU, CBC, LD, ADIFF #### [address] [address] Basophils/100 WBC (Bld) 0.6 % Normal 0.0-2.5 [facility] ([place]) Comment on above: Performed By: #### R CO, CMP, GFR, ANEU, CBC, LD, ADIFF #### [address] [address] Eosinophil, Absolute 0.1 10 3/mcL Normal 0.0-0.7 [facility] ([place]) Comment on above: Performed By: #### R CO, CMP, GFR, ANEU, CBC, LD, ADIFF #### [address] [address] Eosinophils/100 WBC (Bld) 1.3 % Normal 0.0-6.0 [facility] ([place]) Comment on above: Performed By: #### R CO, CMP, GFR, ANEU, CBC, LD, ADIFF #### [address] [address] Lymphocyte, Absolute 1.8 10 3/mcL Normal 0.9-4.3 [facility] ([place]) Comment on above: Performed By: #### R CO, CMP, GFR, ANEU, CBC, LD, ADIFF #### [address] [address] Lymphocytes/100 WBC (Bld) 17.1 % Low 20.0-40.0 [facility] ([place]) Comment on above: Performed By: #### R CO, CMP, GFR, ANEU, CBC, LD, ADIFF #### [address] [address] Monocyte, Absolute 0.6 10 3/mcL Normal 0.1-1.4 [facility] ([place]) Comment on above: Performed By: #### R CO, CMP, GFR, ANEU, CBC, LD, ADIFF #### [address] [address] Monocytes/100 WBC (Bld) 5.3 % Normal 2.0-13.0 [facility] ([place]) Comment on above: Performed By: #### R CO, CMP, GFR, ANEU, CBC, LD, ADIFF #### [address] [address] Neutrophils/100 WBC (Bld) 75.7 % High 50.0-75.0 [facility] ([place]) Comment on above: Performed By: #### R CO, CMP, GFR, ANEU, CBC, LD, ADIFF #### [address] [address] .GFRon 07-11-2022 GFR >60 Normal [facility] ([place]) Comment on above: Result Comment: GFR Population mean for , Non- Americans Ages 20-29 = 116 mL/min/1.73 sq.m. Ages 30-39 = 107 mL/min/1.73 sq.m. Ages 40-49 = 99 mL/min/1.73 sq.m. Ages 50-59 = 93 mL/min/1.73 sq.m. Ages 60-69 = 85 mL/min/1.73 sq.m. Ages 70+ = 75 mL/min/1.73 sq.m. Chronic Kidney Disease: Less than 60 mL/min/1.73 square meters End Stage Renal Disease: Less than 15 mL/min/1.73 square meters Performed By: #### R CO, CMP, GFR, ANEU, CBC, LD, ADIFF #### [address] [address] GFR Non- >60 Normal [facility] ([place]) Comment on above: Result Comment: GFR Population mean for , Non- Americans Ages 20-29 = 116 mL/min/1.73 sq.m. Ages 30-39 = 107 mL/min/1.73 sq.m. Ages 40-49 = 99 mL/min/1.73 sq.m. Ages 50-59 = 93 mL/min/1.73 sq.m. Ages 60-69 = 85 mL/min/1.73 sq.m. Ages 70+ = 75 mL/min/1.73 sq.m. Chronic Kidney Disease: Less than 60 mL/min/1.73 square meters End Stage Renal Disease: Less than 15 mL/min/1.73 square meters Performed By: #### R CO, CMP, GFR, ANEU, CBC, LD, ADIFF #### [address] [address] GFR 158 ml/min/1.73sqm Normal [facility] ([place]) Comment on above: Result Comment: GFR Population mean for , Non- Americans Ages 20-29 = 116 mL/min/1.73 sq.m. Ages 30-39 = 107 mL/min/1.73 sq.m. Ages 40-49 = 99 mL/min/1.73 sq.m. Ages 50-59 = 93 mL/min/1.73 sq.m. Ages 60-69 = 85 mL/min/1.73 sq.m. Ages 70+ = 75 mL/min/1.73 sq.m. Chronic Kidney Disease: Less than 60 mL/min/1.73 square meters End Stage Renal Disease: Less than 15 mL/min/1.73 square meters Performed By: #### R CO, CMP, GFR, ANEU, CBC, LD, ADIFF #### [address] [address] GFR Non- 130 ml/min/1.73sqm Normal [facility] ([place]) Comment on above: Result Comment: GFR Population mean for , Non- Americans Ages 20-29 = 116 mL/min/1.73 sq.m. Ages 30-39 = 107 mL/min/1.73 sq.m. Ages 40-49 = 99 mL/min/1.73 sq.m. Ages 50-59 = 93 mL/min/1.73 sq.m. Ages 60-69 = 85 mL/min/1.73 sq.m. Ages 70+ = 75 mL/min/1.73 sq.m. Chronic Kidney Disease: Less than 60 mL/min/1.73 square meters End Stage Renal Disease: Less than 15 mL/min/1.73 square meters Performed By: #### R CO, CMP, GFR, ANEU, CBC, LD, ADIFF #### [address] [address] .NEUABSon 07-11-2022 Neutrophil, Absolute 8.1 10 3/mcL Normal 2.3-8.1 [facility] ([place]) Comment on above: Performed By: #### R CO, CMP, GFR, ANEU, CBC, LD, ADIFF #### [address] [address] ABO/Rh (Gel)on 07-11-2022 ABO/Rh Interp Positive Invalid Interpretation Code [facility] ([place]) Comment on above: Performed By: #### R CO, CMP, GFR, ANEU, CBC, LD, ADIFF #### [address] [address] ABS (Gel)on 07-11-2022 ABSC Interp (Gel) Negative Normal [facility] ([place]) Comment on above: Performed By: #### R CO, CMP, GFR, ANEU, CBC, LD, ADIFF #### [address] [address] CBCon 07-11-2022 Erythrocyte distribution width (RBC) [Ratio] 13.9 % Normal 11.5-15.5 [facility] ([place]) Comment on above: Performed By: #### R CO, CMP, GFR, ANEU, CBC, LD, ADIFF #### [address] [address] Hematocrit (Bld) [Volume fraction] 32.3 % Low 34.0-46.0 [facility] ([place]) Comment on above: Performed By: #### R CO, CMP, GFR, ANEU, CBC, LD, ADIFF #### [place] [address] Hgb 10.7 G/dL Low 12.0-16.0 [facility] ([place]) Comment on above: Performed By: #### R CO, CMP, GFR, ANEU, CBC, LD, ADIFF #### [place] [address] MCH (RBC) [Entitic mass] 28.4 pg Normal 27.0-33.0 [facility] ([place]) Comment on above: Performed By: #### R CO, CMP, GFR, ANEU, CBC, LD, ADIFF #### [place] [address] MCHC 33.2 G/dL Normal 32.0-36.0 [facility] ([place]) Comment on above: Performed By: #### R CO, CMP, GFR, ANEU, CBC, LD, ADIFF #### [place] [address] MCV (RBC) [Entitic vol] 85.5 fL Normal 80.0-99.0 [facility] ([place]) Comment on above: Performed By: #### R CO, CMP, GFR, ANEU, CBC, LD, ADIFF #### [place] [address] Platelet 261 10 3/mcL Normal 150-450 [facility] ([place]) Comment on above: Performed By: #### R CO, CMP, GFR, ANEU, CBC, LD, ADIFF #### [place] [address] Platelet mean volume (Bld) [Entitic vol] 8.8 fL Normal 6.6-10.5 [facility] ([place]) Comment on above: Performed By: #### R CO, CMP, GFR, ANEU, CBC, LD, ADIFF #### [place] [address] RBC 3.78 10 6/mcL Low 4.10-5.30 [facility] ([place]) Comment on above: Performed By: #### R CO, CMP, GFR, ANEU, CBC, LD, ADIFF #### [place] [id number] WBC 10.7 10 3/mcL Normal 4.5-10.8 [facility] ([place]) Comment on above: Performed By: #### R CO, CMP, GFR, ANEU, CBC, LD, ADIFF #### [place] [address] CMPon 07-11-2022 Albumin Level 2.6 G/dL Low 3.2-4.8 [facility] ([place]) Comment on above: Performed By: #### R CO, CMP, GFR, ANEU, CBC, LD, ADIFF #### [place] [address] Albumin/Globulin [Mass ratio] 0.8 {ratio} Low 0.9-1.6 [facility] ([place]) Comment on above: Performed By: #### R CO, CMP, GFR, ANEU, CBC, LD, ADIFF #### [place] [address] ALP [Catalytic activity/Vol] 117 U/L Normal 33-118 [facility] ([place]) Comment on above: Performed By: #### R CO, CMP, GFR, ANEU, CBC, LD, ADIFF #### [place] [id number] ALT [Catalytic activity/Vol] 12 U/L Normal 10-49 [facility] ([place]) Comment on above: Performed By: #### R CO, CMP, GFR, ANEU, CBC, LD, ADIFF #### [address] [address] AST [Catalytic activity/Vol] 14 U/L Normal 8-34 [facility] ([place]) Comment on above: Performed By: #### R CO, CMP, GFR, ANEU, CBC, LD, ADIFF #### [place] [address] Bili Total 0.20 mg/dL Normal 0.20-1.20 [facility] ([place]) Comment on above: Result Comment: Use of this assay is not recommended for patients undergoing treatment with eltrombopag due to the potential for falsely elevated results. Performed By: #### R CO, CMP, GFR, ANEU, CBC, LD, ADIFF #### [address] [address] BUN/Creatinine Ratio 13.0 ratio Normal 10.0-22.0 [facility] ([place]) Comment on above: Performed By: #### R CO, CMP, GFR, ANEU, CBC, LD, ADIFF #### [address] [address] Calcium [Mass/Vol] 8.2 mg/dL Low 8.7-10.4 [facility] ([place]) Comment on above: Performed By: #### R CO, CMP, GFR, ANEU, CBC, LD, ADIFF #### [place] [phone] Chloride [Moles/Vol] 110 mmol/L Normal 98-110 [facility] ([place]) Comment on above: Performed By: #### R CO, CMP, GFR, ANEU, CBC, LD, ADIFF #### [place] [phone] CO2 [Moles/Vol] 20 mmol/L Low 22-32 [facility] ([place]) Comment on above: Performed By: #### R CO, CMP, GFR, ANEU, CBC, LD, ADIFF #### [place] [phone] Creatinine [Mass/Vol] 0.54 mg/dL Normal 0.50-1.20 [facility] ([place]) Comment on above: Performed By: #### R CO, CMP, GFR, ANEU, CBC, LD, ADIFF #### [place] [phone] Electrolyte Balance 10.0 mEq/L Normal 4.0-15.0 [facility] ([place]) Comment on above: Performed By: #### R CO, CMP, GFR, ANEU, CBC, LD, ADIFF #### [place] [phone] Globulin 3.2 G/dL Normal 1.5-3.8 [facility] ([place]) Comment on above: Performed By: #### R CO, CMP, GFR, ANEU, CBC, LD, ADIFF #### [address] [address] Glucose [Mass/Vol] 91 mg/dL Normal 70-110 [facility] ([place]) Comment on above: Performed By: #### R CO, CMP, GFR, ANEU, CBC, LD, ADIFF #### [address] [address] Potassium [Moles/Vol] 3.9 mmol/L Normal 3.5-5.0 [facility] ([place]) Comment on above: Performed By: #### R CO, CMP, GFR, ANEU, CBC, LD, ADIFF #### [address] [address] Sodium [Moles/Vol] 140 mmol/L Normal 136-145 [facility] ([place]) Comment on above: Performed By: #### R CO, CMP, GFR, ANEU, CBC, LD, ADIFF #### [address] [address] Total Protein 5.8 G/dL Normal 5.7-8.2 [facility] ([place]) Comment on above: Result Comment: No te - New Reference Range in effect 19 Performed By: #### R CO, CMP, GFR, ANEU, CBC, LD, ADIFF #### [address] [address] Urea nitrogen [Mass/Vol] 7.0 mg/dL Low 8.0-22.0 [facility] ([place]) Comment on above: Performed By: #### R CO, CMP, GFR, ANEU, CBC, LD, ADIFF #### [address] [address] Albumin Level 2.5 G/dL Low 3.5-5.0 [facility] ([place]) Comment on above: Performed By: #### R CO, CMP, GFR, ANEU, CBC, LD, ADIFF #### [address] [address] Albumin/Globulin [Mass ratio] 0.8 {ratio} Low 1.1-2.5 [facility] ([place]) Comment on above: Performed By: #### R CO, CMP, GFR, ANEU, CBC, LD, ADIFF #### [address] [address] ALP [Catalytic activity/Vol] 118 U/L Normal 40-135 [facility] ([place]) Comment on above: Performed By: #### R CO, CMP, GFR, ANEU, CBC, LD, ADIFF #### [address] [address] ALT [Catalytic activity/Vol] 17 U/L Normal 14-59 [facility] ([place]) Comment on above: Performed By: #### R CO, CMP, GFR, ANEU, CBC, LD, ADIFF #### [address] [address] AST [Catalytic activity/Vol] 14 U/L Normal 10-40 [facility] ([place]) Comment on above: Performed By: #### R CO, CMP, GFR, ANEU, CBC, LD, ADIFF #### [place] [phone] Bili Total 0.1 mg/dL Low 0.2-1.0 [facility] ([place]) Comment on above: Result Comment: Use of this assay is not recommended for patients undergoing treatment with eltrombopag due to the potential for falsely elevated results. Performed By: #### R CO, CMP, GFR, ANEU, CBC, LD, ADIFF #### [place] [id number] BUN/Creatinine Ratio 14 ratio Normal 7-27 [facility] ([place]) Comment on above: Performed By: #### R CO, CMP, GFR, ANEU, CBC, LD, ADIFF #### [address] [address] Calcium [Mass/Vol] 8.5 mg/dL Normal 8.4-10.2 [facility] ([place]) Comment on above: Performed By: #### R CO, CMP, GFR, ANEU, CBC, LD, ADIFF #### [address] [address] Chloride [Moles/Vol] 105 mmol/L Normal 98-107 [facility] ([place]) Comment on above: Performed By: #### R CO, CMP, GFR, ANEU, CBC, LD, ADIFF #### [address] [address] CO2 [Moles/Vol] 23 mmol/L Normal 22-29 [facility] ([place]) Comment on above: Performed By: #### R CO, CMP, GFR, ANEU, CBC, LD, ADIFF #### [place] [phone] Creatinine [Mass/Vol] 0.59 mg/dL Normal 0.55-1.02 [facility] ([place]) Comment on above: Performed By: #### R CO, CMP, GFR, ANEU, CBC, LD, ADIFF #### [place] [phone] Electrolyte Balance 8.0 mEq/L Normal 4.0-15.0 [facility] ([place]) Comment on above: Performed By: #### R CO, CMP, GFR, ANEU, CBC, LD, ADIFF #### [place] [address] Globulin 3.3 G/dL Normal [facility] ([place]) Comment on above: Performed By: #### R CO, CMP, GFR, ANEU, CBC, LD, ADIFF #### [place] [phone] Glucose [Mass/Vol] 87 mg/dL Normal 70-105 [facility] ([place]) Comment on above: Performed By: #### R CO, CMP, GFR, ANEU, CBC, LD, ADIFF #### [place] [address] Potassium [Moles/Vol] 3.8 mmol/L Normal 3.5-5.1 [facility] ([place]) Comment on above: Performed By: #### R CO, CMP, GFR, ANEU, CBC, LD, ADIFF #### [address] [address] Sodium [Moles/Vol] 136 mmol/L Normal 136-145 [facility] ([place]) Comment on above: Performed By: #### R CO, CMP, GFR, ANEU, CBC, LD, ADIFF #### [facility] [address] [place] [address] Total Protein 5.8 G/dL Low 6.4-8.2 [facility] ([place]) Comment on above: Performed By: #### R CO, CMP, GFR, ANEU, CBC, LD, ADIFF #### [facility] [address] [place] [address] Urea nitrogen [Mass/Vol] 8 mg/dL Normal 7-18 [facility] ([place]) Comment on above: Performed By: #### R CO, CMP, GFR, ANEU, CBC, LD, ADIFF #### [facility] [address] [place] [address] LABORATORYOrdered By: Carmen Painter on 07-11-2022 Appearance (U) Hazy *ABN* (07/11/22 7:09 AM) Invalid Interpretation Code Clear Auto Urine SS Bacteria LM.HPF (Urine sed) [#/Area] 2 /[HPF] Invalid Interpretation Code Negative/HPF AH Auto Urine SS Bilirubin Ql (U) Negative (07/11/22 7:09 AM) Invalid Interpretation Code Neg-Trace Auto Urine SS Color (U) Straw (07/11/22 7:09 AM) Invalid Interpretation Code AH Auto Urine SS Glucose Test strip (U) [Mass/Vol] Negative Invalid Interpretation Code Negativemg/dL AH Auto Urine SS Hemoglobin Auto test strip (U) [Mass/Vol] Negative (07/11/22 7:09 AM) Invalid Interpretation Code Neg-Trace AH Auto Urine SS Ketones Ql (U) Negative Invalid Interpretation Code Neg-Tracemg/dL AH Auto Urine SS UA Leuk Est Moderate *ABN* (07/11/22 7:09 AM) Invalid Interpretation Code Negative AH Auto Urine SS UA Mucous 1+ /HPF Invalid Interpretation Code AH Auto Urine SS UA Nitrite Negative (07/11/22 7:09 AM) Invalid Interpretation Code Negative AH Auto Urine SS UA pH 6.0 (07/11/22 7:09 AM) Invalid Interpretation Code 5.0 - 8.0 AH Auto Urine SS UA Protein Negative Invalid Interpretation Code Negativemg/dL AH Auto Urine SS UA RBC Rare /HPF Invalid Interpretation Code 0-2/HPF AH Auto Urine SS UA Spec Grav 1.010 (07/11/22 7:09 AM) Invalid Interpretation Code 1.006-1.029 AH Auto Urine SS UA Specimen Type Clean Catch (07/11/22 7:09 AM) Invalid Interpretation Code Auto Urine SS UA Squam Epithelial 0-2 /HPF Invalid Interpretation Code 0-20/HPF AH Auto Urine SS UA Urobilinogen 0.2 E.U./dL Invalid Interpretation Code 0.2-1.0E.U./dL AH Auto Urine SS WBC LM.HPF (Urine sed) [#/Area] 5-10 /HPF Invalid Interpretation Code 0-5/HPF AH Auto Urine SS LABORATORYOrdered By: Elizabeth Mcguire on 07-11-2022 Creatinine (U) [Mass/Vol] 43.7 mg/dL Invalid Interpretation Code ADM SS Protein (U) [Mass/Vol] 10.8 mg/dL Invalid Interpretation Code AH ADM SS U Ratio Prot/Creat 0.2 ratio Invalid Interpretation Code AH ADM SS LABORATORYOrdered By: Vinicio Choi on 07-11-2022 ABO and Rh group Nom (Bld) Blood group A Rh(D) positive Invalid Interpretation Code BB Auto SS Blood group antibody screen Ql Negative ABSC (07/11/22 5:05 AM) Invalid Interpretation Code AH BB Auto SS LABORATORYOrdered By: [employer] on 07-11-2022 Albumin BCP dye [Mass/Vol] 2.6 G/dL Invalid Interpretation Code 3.2 - 4.8 G/dL AH ADM SS Albumin/Globulin [Mass ratio] 0.8 {ratio} Invalid Interpretation Code 0.9 - 1.6 ratio AH ADM SS ALP [Catalytic activity/Vol] 117 U/L Invalid Interpretation Code 33 - 118 U/L AH ADM SS ALT No additional P-5'-P [Catalytic activity/Vol] 12 U/L Invalid Interpretation Code 10 - 49 U/L AH ADM SS AST [Catalytic activity/Vol] 14 U/L Invalid Interpretation Code 8 - 34 U/L AH ADM SS Basophils (Bld) [#/Vol] 0.1 103/mcL Invalid Interpretation Code 0.0 - 0.3 10^3/mcL AH Workflow SS Basophils/100 WBC (Bld) 0.6 % Invalid Interpretation Code 0.0 - 2.5 % Workflow SS Bilirubin [Mass/Vol] 0.20 mg/dL Invalid Interpretation Code 0.20 - 1.20 mg/dL ADM SS Calcium [Mass/Vol] 8.2 mg/dL Invalid Interpretation Code 8.7 - 10.4 mg/dL ADM SS Chloride [Moles/Vol] 110 mmol/L Invalid Interpretation Code 98 - 110 mEq/L ADM SS CO2 [Moles/Vol] 20 mmol/L Invalid Interpretation Code 22 - 32 mEq/L ADM SS Creatinine [Mass/Vol] 0.54 mg/dL Invalid Interpretation Code 0.50 - 1.20 mg/dL ADM SS Electrolyte Balance 10.0 mEq/L Invalid Interpretation Code 4.0 - 15.0 mEq/L ADM SS Eosinophils (Bld) [#/Vol] 0.1 103/mcL Invalid Interpretation Code 0.0 - 0.7 10^3/mcL Workflow SS Eosinophils/100 WBC (Bld) 1.3 % Invalid Interpretation Code 0.0 - 6.0 % Workflow SS Erythrocyte distribution width (RBC) [Ratio] 13.9 % Invalid Interpretation Code 11.5 - 15.5 % Workflow SS GFR/1.73 sq M.predicted among blacks MDRD (S/P/Bld) [Vol rate/Area] ml/min/1.73sqm Invalid Interpretation Code Chemistry S GFR/1.73 sq M.predicted among non-blacks MDRD (S/P/Bld) [Vol rate/Area] ml/min/1.73sqm Invalid Interpretation Code Chemistry S Globulin 3.2 G/dL Invalid Interpretation Code 1.5 - 3.8 G/dL ADM SS Glucose [Mass/Vol] 91 mg/dL Invalid Interpretation Code 70 - 110 mg/dL ADM SS Hematocrit (Bld) [Volume fraction] 32.3 % Invalid Interpretation Code 34.0 - 46.0 % Workflow SS Hemoglobin (Bld) [Mass/Vol] 10.7 G/dL Invalid Interpretation Code 12.0 - 16.0 G/dL Workflow SS LDH Lactate to pyruvate reaction [Catalytic activity/Vol] 188 1 Invalid Interpretation Code 120 - 246 U/L ADM SS Lymphocytes (Bld) [#/Vol] 1.8 103/mcL Invalid Interpretation Code 0.9 - 4.3 10^3/mcL AH Workflow SS Lymphocytes/100 WBC (Bld) 17.1 % Invalid Interpretation Code 20.0 - 40.0 % AH Workflow SS MCH (RBC) [Entitic mass] 28.4 pg Invalid Interpretation Code 27.0 - 33.0 pg AH Workflow SS MCHC 33.2 G/dL Invalid Interpretation Code 32.0 - 36.0 G/dL AH Workflow SS MCV (RBC) [Entitic vol] 85.5 fL Invalid Interpretation Code 80.0 - 99.0 fL AH Workflow SS Monocytes (Bld) [#/Vol] 0.6 103/mcL Invalid Interpretation Code 0.1 - 1.4 10^3/mcL AH Workflow SS Monocytes/100 WBC (Bld) 5.3 % Invalid Interpretation Code 2.0 - 13.0 % AH Workflow SS Neutrophils (Bld) [#/Vol] 8.1 103/mcL Invalid Interpretation Code 2.3 - 8.1 10^3/mcL AH Workflow SS Neutrophils/100 WBC (Bld) 75.7 % Invalid Interpretation Code 50.0 - 75.0 % AH Workflow SS Platelet mean volume (Bld) [Entitic vol] 8.8 fL Invalid Interpretation Code 6.6 - 10.5 fL AH Workflow SS Platelets (Bld) [#/Vol] 261 103/mcL Invalid Interpretation Code 150 - 450 10^3/mcL AH Workflow SS Potassium [Moles/Vol] 3.9 mmol/L Invalid Interpretation Code 3.5 - 5.0 mEq/L ADM SS Protein [Mass/Vol] 5.8 G/dL Invalid Interpretation Code 5.7 - 8.2 G/dL AH ADM SS RBC (Bld) [#/Vol] 3.78 106/mcL Invalid Interpretation Code 4.10 - 5.30 10^6/mcL AH Workflow SS Sodium [Moles/Vol] 140 mmol/L Invalid Interpretation Code 136 - 145 mEq/L AH ADM SS Urea nitrogen [Mass/Vol] 7.0 mg/dL Invalid Interpretation Code 8.0 - 22.0 mg/dL AH ADM SS Urea nitrogen/Creatinine [Mass ratio] 13.0 ratio Invalid Interpretation Code 10.0 - 22.0 ratio AH ADM SS WBC (Bld) [#/Vol] 10.7 103/mcL Invalid Interpretation Code 4.5 - 10.8 10^3/mcL AH Workflow SS LABORATORYOrdered By: CLEV_C TAMMIE CONTRIBUTOR_SYSTEM on 07-11-2022 Levetiracetam Lvl 33.0 UG/ML Invalid Interpretation Code 12.0-46.0UG/ML Sendouts SS Comment on above: Result Comment: This test is not suitable for patients receiving treatment with the drug brivaracetam (Briviact). The drug causes an interference that may lead to falsely elevated levetiracetam results. Reference ranges and high/low indicator flags are provided as general guidelines only. The treating physician must determine appropriate target levels/dosing based on the specific clinical situation. This test was developed and its performance characteristics determined by [facility]'s [facility] [place] ([facility] It has not been cleared or approved by the FDA. [facility] is regulated under CLIA as qualified to perform high-complexity testing. This test is used for clinical purposes. It should not be regarded as investigational or for research. Performed By: [facility] [address] [place] [address] Head Of Academic Technology: Stanislaw Gutiérrez III, M.D. CLIA#: [id number] LABORATORYOrdered By: Philly Atkinson on 07-11-2022 Reagin Ab RPR Ql (S) Non-Reactive (07/11/22 5:05 AM) Invalid Interpretation Code Non-Reactive [facility] Viro/Sero SS LDHon 07-11-2022 LDH 188 U/L Normal 120-246 [facility] ([place]) Comment on above: Performed By: #### R CO, CMP, GFR, ANEU, CBC, LD, ADIFF #### [address] [address] No Panel Informationon 07-11 Culture Urine 10,000 - 50,000 cfu/ml Mixed growth consistent with normal urogenital sharlene. [facility] Work Phone: RPCURon 07-11-2022 U Creatinine 43.7 mg/dL Normal [facility] ([place]) Comment on above: Performed By: #### R CO, CMP, GFR, ANEU, CBC, LD, ADIFF #### [address] [address] U Protein 10.8 mg/dL Normal [facility] ([place]) Comment on above: Performed By: #### R CO, CMP, GFR, ANEU, CBC, LD, ADIFF #### [address] [address] U Ratio Prot/Creat 0.2 ratio Normal [facility] ([place]) Comment on above: Result Comment: resu lt calculated by rule [id number] (U Protein/U Creatinine) Performed By: #### R CO, CMP, GFR, ANEU, CBC, LD, ADIFF #### [place] [id number] UAon 07-11-2022 Color (U) Straw Normal [facility] ([place]) Comment on above: Performed By: #### R CO, CMP, GFR, ANEU, CBC, LD, ADIFF #### [place] [phone] Glucose (U) [Mass/Vol] Negative Normal Negative [facility] ([place]) Comment on above: Performed By: #### R CO, CMP, GFR, ANEU, CBC, LD, ADIFF #### [address] [address] Ketones Ql (U) Negative Normal Neg-Trace [facility] ([place]) Comment on above: Performed By: #### R CO, CMP, GFR, ANEU, CBC, LD, ADIFF #### [place] [id number] UA Appear Hazy Abnormal Clear [facility] ([place]) Comment on above: Performed By: #### R CO, CMP, GFR, ANEU, CBC, LD, ADIFF #### [address] [address] UA Blood Negative Normal Neg-Trace [facility] ([place]) Comment on above: Performed By: #### R CO, CMP, GFR, ANEU, CBC, LD, ADIFF #### [address] [address] UA Leuk Est Moderate Abnormal Negative [facility] ([place]) Comment on above: Performed By: #### R CO, CMP, GFR, ANEU, CBC, LD, ADIFF #### [address] [address] UA Nitrite Negative Normal Negative [facility] ([place]) Comment on above: Performed By: #### R CO, CMP, GFR, ANEU, CBC, LD, ADIFF #### [address] [address] UA pH 6.0 Normal 5.0 - 8.0 [facility] ([place]) Comment on above: Performed By: #### R CO, CMP, GFR, ANEU, CBC, LD, ADIFF #### [address] [address] UA Protein Negative Normal Negative [facility] ([place]) Comment on above: Performed By: #### R CO, CMP, GFR, ANEU, CBC, LD, ADIFF #### [address] [address] UA Spec Grav 1.010 Normal 1.006-1.029 [facility] ([place]) Comment on above: Performed By: #### R CO, CMP, GFR, ANEU, CBC, LD, ADIFF #### [address] [address] UA Specimen Type Clean Catch Normal [facility] ([place]) Comment on above: Performed By: #### R CO, CMP, GFR, ANEU, CBC, LD, ADIFF #### [address] [address] UA Urobilinogen 0.2 E.U./dL Normal 0.2-1.0 [facility] ([place]) Comment on above: Performed By: #### R CO, CMP, GFR, ANEU, CBC, LD, ADIFF #### [address] [address] Urobilinogen (U) [Mass/Vol] Negative Normal Neg-Trace [facility] ([place]) Comment on above: Performed By: #### R CO, CMP, GFR, ANEU, CBC, LD, ADIFF #### [address] [address] UAMICon 07-11-2022 UA Bacteria 2+ /hpf Abnormal Negative [facility] ([place]) Comment on above: Performed By: #### R CO, CMP, GFR, ANEU, CBC, LD, ADIFF #### [address] [address] UA Mucous 1+ /hpf Normal [facility] ([place]) Comment on above: Performed By: #### R CO, CMP, GFR, ANEU, CBC, LD, ADIFF #### [address] [address] UA RBC Rare Normal 0-2 [facility] ([place]) Comment on above: Performed By: #### R CO, CMP, GFR, ANEU, CBC, LD, ADIFF #### [address] [address] UA Squam Epithelial 0-2 Normal 0-20 [facility] ([place]) Comment on above: Performed By: #### R CO, CMP, GFR, ANEU, CBC, LD, ADIFF #### [address] [address] UA WBC 5-10 Abnormal 0-5 [facility] ([place]) Comment on above: Performed By: #### R CO, CMP, GFR, ANEU, CBC, LD, ADIFF #### [address] [address] .Auto Diffon 07-10-2022 Basophil, Absolute 0.1 10 3/mcL Normal 0.0-0.2 [facility] ([place]) Comment on above: Performed By: #### R CO, CMP, GFR, ANEU, CBC, LD, ADIFF #### [address] [address] Basophils/100 WBC (Bld) 0.7 % Normal 0.0-2.5 [facility] ([place]) Comment on above: Performed By: #### R CO, CMP, GFR, ANEU, CBC, LD, ADIFF #### [address] [address] Eosinophil, Absolute 0.1 10 3/mcL Normal 0.0-0.4 [facility] ([place]) Comment on above: Performed By: #### R CO, CMP, GFR, ANEU, CBC, LD, ADIFF #### [address] [address] Eosinophils/100 WBC (Bld) 1.4 % Normal 0.0-7.0 [facility] ([place]) Comment on above: Performed By: #### R CO, CMP, GFR, ANEU, CBC, LD, ADIFF #### [address] [address] Lymphocyte, Absolute 2.0 10 3/mcL Normal 0.8-3.9 [facility] ([place]) Comment on above: Performed By: #### R CO, CMP, GFR, ANEU, CBC, LD, ADIFF #### [address] [address] Lymphocytes/100 WBC (Bld) 19.4 % Normal 10.0-50.0 [facility] ([place]) Comment on above: Performed By: #### R CO, CMP, GFR, ANEU, CBC, LD, ADIFF #### [address] [address] Monocyte, Absolute 0.8 10 3/mcL Normal 0.2-1.0 [facility] ([place]) Comment on above: Performed By: #### R CO, CMP, GFR, ANEU, CBC, LD, ADIFF #### [address] [address] Monocytes/100 WBC (Bld) 7.3 % Normal 1.7-13.0 [facility] ([place]) Comment on above: Performed By: #### R CO, CMP, GFR, ANEU, CBC, LD, ADIFF #### [address] [address] Neutrophils/100 WBC (Bld) 71.2 % Normal 37.0-80.0 [facility] ([place]) Comment on above: Performed By: #### R CO, CMP, GFR, ANEU, CBC, LD, ADIFF #### [address] [address] .Roderick 07-10-2022 Monocyte Distribution Width 18.11 Normal 0.00-20.00 [facility] ([place]) Comment on above: Result Comment: For ED adult patients suspected of sepsis, MDW<=20.0 does not rule out sepsis or risk of sepsis Performed By: #### R CO, CMP, GFR, ANEU, CBC, LD, ADIFF #### [address] [address] .NEUABSon 07-10-2022 Neutrophil, Absolute 7.4 10 3/mcL High 2.9-6.2 [facility] ([place]) Comment on above: Performed By: #### R CO, CMP, GFR, ANEU, CBC, LD, ADIFF #### [place] [address] .Urinalysis Microscopic (AO) on 07-10-2022 UA Bacteria 4+ /hpf Abnormal [facility] ([place]) Comment on above: Performed By: #### U AMICAO, UA #### [address] [address] UA RBC 0-5 Abnormal None Seen [facility] ([place]) Comment on above: Performed By: #### U AMICAO, UA #### [address] [address] UA Squam Epithelial LOADED Abnormal None Seen [facility] ([place]) Comment on above: Performed By: #### U AMICAO, UA #### [address] [address] UA WBC 15-25 Abnormal None Seen [facility] ([place]) Comment on above: Performed By: #### U AMICAO, UA #### [address] [address] CBCon 07-10-2022 Erythrocyte distribution width (RBC) [Ratio] 14.0 % Normal 11.5-14.5 [facility] ([place]) Comment on above: Performed By: #### R CO, CMP, GFR, ANEU, CBC, LD, ADIFF #### [place] [address] Hematocrit (Bld) [Volume fraction] 32.9 % Low 37.0-47.0 [facility] ([place]) Comment on above: Performed By: #### R CO, CMP, GFR, ANEU, CBC, LD, ADIFF #### [place] [address] Hgb 11.0 G/dL Low 12.0-16.0 [facility] ([place]) Comment on above: Performed By: #### R CO, CMP, GFR, ANEU, CBC, LD, ADIFF #### [place] [address] MCH (RBC) [Entitic mass] 28.5 pg Normal 27.0-31.2 [facility] ([place]) Comment on above: Performed By: #### R CO, CMP, GFR, ANEU, CBC, LD, ADIFF #### [place] [address] MCHC 33.5 G/dL Normal 33.0-37.0 [facility] ([place]) Comment on above: Performed By: #### R CO, CMP, GFR, ANEU, CBC, LD, ADIFF #### [place] [address] MCV (RBC) [Entitic vol] 85.1 fL Normal 80.0-94.0 [facility] ([place]) Comment on above: Performed By: #### R CO, CMP, GFR, ANEU, CBC, LD, ADIFF #### [place] [address] Platelet 269 10 3/mcL Normal 130-400 [facility] ([place]) Comment on above: Performed By: #### R CO, CMP, GFR, ANEU, CBC, LD, ADIFF #### [place] [address] Platelet mean volume (Bld) [Entitic vol] 8.2 fL Normal 7.4-10.4 [facility] ([place]) Comment on above: Performed By: #### R CO, CMP, GFR, ANEU, CBC, LD, ADIFF #### [place] [address] RBC 3.86 10 6/mcL Low 4.20-5.40 [facility] ([place]) Comment on above: Performed By: #### R CO, CMP, GFR, ANEU, CBC, LD, ADIFF #### [place] [address] [place] [address] WBC 10.4 10 3/mcL Normal 4.6-10.8 [facility] ([place]) Comment on above: Performed By: #### R CO, CMP, GFR, ANEU, CBC, LD, ADIFF #### [place] [address] [place] [address] LABORATORYOrdered By: SYSTEM SYSTEM on 07-10-2022 Albumin BCP dye [Mass/Vol] 2.5 G/dL Invalid Interpretation Code 3.5 - 5.0 G/dL AO ADM SS Albumin/Globulin [Mass ratio] 0.8 {ratio} Invalid Interpretation Code 1.1 - 2.5 ratio AO ADM SS ALP [Catalytic activity/Vol] 118 U/L Invalid Interpretation Code 40 - 135 U/L AO ADM SS ALT With P-5'-P [Catalytic activity/Vol] 17 U/L Invalid Interpretation Code 14 - 59 U/L AO ADM SS AST With P-5'-P [Catalytic activity/Vol] 14 U/L Invalid Interpretation Code 10 - 40 U/L AO ADM SS Bilirubin [Mass/Vol] 0.1 mg/dL Invalid Interpretation Code 0.2 - 1.0 mg/dL AO ADM SS Calcium [Mass/Vol] 8.5 mg/dL Invalid Interpretation Code 8.4 - 10.2 mg/dL AO ADM SS Chloride [Moles/Vol] 105 mmol/L Invalid Interpretation Code 98 - 107 mmol/L AO ADM SS CO2 [Moles/Vol] 23 mmol/L Invalid Interpretation Code 22 - 29 mmol/L AO ADM SS Creatinine [Mass/Vol] 0.59 mg/dL Invalid Interpretation Code 0.55 - 1.02 mg/dL AO ADM SS Electrolyte Balance 8.0 mEq/L Invalid Interpretation Code 4.0 - 15.0 mEq/L AO ADM SS GFR 158 ml/min/1.73sqm Invalid Interpretation Code AO Chemistry S GFR Non- 130 ml/min/1.73sqm Invalid Interpretation Code AO Chemistry S Globulin 3.3 G/dL Invalid Interpretation Code AO ADM SS Glucose [Mass/Vol] 87 mg/dL Invalid Interpretation Code 70 - 105 mg/dL AO ADM SS Potassium [Moles/Vol] 3.8 mmol/L Invalid Interpretation Code 3.5 - 5.1 mmol/L AO ADM SS Protein [Mass/Vol] 5.8 G/dL Invalid Interpretation Code 6.4 - 8.2 G/dL AO ADM SS Sodium [Moles/Vol] 136 mmol/L Invalid Interpretation Code 136 - 145 mmol/L AO ADM SS Urea nitrogen [Mass/Vol] 8 mg/dL Invalid Interpretation Code 7 - 18 mg/dL AO ADM SS Urea nitrogen/Creatinine [Mass ratio] 14 ratio Invalid Interpretation Code 7 - 27 ratio AO ADM SS LABORATORYOrdered By: Teetee Stroud on 07-10-2022 Basophil, Absolute 0.1 103/mcL Invalid Interpretation Code 0.0 - 0.2 10^3/mcL AO Workflow SS Basophils/100 WBC (Bld) 0.7 % Invalid Interpretation Code 0.0 - 2.5 % AO Workflow SS Eosinophil, Absolute 0.1 103/mcL Invalid Interpretation Code 0.0 - 0.4 10^3/mcL AO Workflow SS Eosinophils/100 WBC (Bld) 1.4 % Invalid Interpretation Code 0.0 - 7.0 % AO Workflow SS Erythrocyte distribution width (RBC) [Ratio] 14.0 % Invalid Interpretation Code 11.5 - 14.5 % AO Workflow SS Hematocrit (Bld) [Volume fraction] 32.9 % Invalid Interpretation Code 37.0 - 47.0 % AO Workflow SS Hemoglobin (Bld) [Mass/Vol] 11.0 G/dL Invalid Interpretation Code 12.0 - 16.0 G/dL AO Workflow SS Lymphocyte, Absolute 2.0 103/mcL Invalid Interpretation Code 0.8 - 3.9 10^3/mcL AO Workflow SS Lymphocytes/100 WBC (Bld) 19.4 % Invalid Interpretation Code 10.0 - 50.0 % AO Workflow SS MCH (RBC) [Entitic mass] 28.5 pg Invalid Interpretation Code 27.0 - 31.2 pg AO Workflow SS MCHC 33.5 G/dL Invalid Interpretation Code 33.0 - 37.0 G/dL AO Workflow SS MCV (RBC) [Entitic vol] 85.1 fL Invalid Interpretation Code 80.0 - 94.0 fL AO Workflow SS Monocyte distribution width Auto (Bld) [Entitic vol] 18.11 Invalid Interpretation Code 0.00 - 20.00 AO Workflow SS Comment on above: Result Comment: For ED adult patients suspected of sepsis, MDW<=20.0 does not rule out sepsis or risk of sepsis Monocyte, Absolute 0.8 103/mcL Invalid Interpretation Code 0.2 - 1.0 10^3/mcL AO Workflow SS Monocytes/100 WBC (Bld) 7.3 % Invalid Interpretation Code 1.7 - 13.0 % AO Workflow SS Neutrophil, Absolute 7.4 103/mcL Invalid Interpretation Code 2.9 - 6.2 10^3/mcL AO Workflow SS Neutrophils/100 WBC (Bld) 71.2 % Invalid Interpretation Code 37.0 - 80.0 % AO Workflow SS Platelet mean volume (Bld) [Entitic vol] 8.2 fL Invalid Interpretation Code 7.4 - 10.4 fL AO Workflow SS Platelets (Bld) [#/Vol] 269 103/mcL Invalid Interpretation Code 130 - 400 10^3/mcL AO Workflow SS RBC (Bld) [#/Vol] 3.86 106/mcL Invalid Interpretation Code 4.20 - 5.40 10^6/mcL AO Workflow SS WBC (Bld) [#/Vol] 10.4 103/mcL Invalid Interpretation Code 4.6 - 10.8 10^3/mcL AO Workflow SS LABORATORYOrdered By: Shade Cisneros on 07-10-2022 Appearance (U) Slightly Cloudy *ABN* (07/10/22 9:11 PM) Invalid Interpretation Code Clear AO Auto Urine SS Bacteria LM.HPF (Urine sed) [#/Area] 4 /[HPF] Invalid Interpretation Code AO Auto Urine SS Bilirubin Ql (U) Negative (07/10/22 9:11 PM) Invalid Interpretation Code Negative AO Auto Urine SS Color (U) Yellow (07/10/22 9:11 PM) Invalid Interpretation Code AO Auto Urine SS Glucose Test strip (U) [Mass/Vol] Negative Invalid Interpretation Code Negativemg/dL AO Auto Urine SS Hemoglobin Auto test strip (U) [Mass/Vol] Negative (07/10/22 9:11 PM) Invalid Interpretation Code Negative AO Auto Urine SS Ketones Ql (U) Negative Invalid Interpretation Code Negativemg/dL AO Auto Urine SS UA Leuk Est Small *ABN* (07/10/22 9:11 PM) Invalid Interpretation Code Negative AO Auto Urine SS UA Nitrite Negative (07/10/22 9:11 PM) Invalid Interpretation Code Negative AO Auto Urine SS UA pH 7.0 (07/10/22 9:11 PM) Invalid Interpretation Code 5.0 - 8.0 AO Auto Urine SS UA Protein Negative Invalid Interpretation Code Negativemg/dL AO Auto Urine SS UA RBC 0-5 /HPF Invalid Interpretation Code None Seen/HPF AO Auto Urine SS UA Spec Grav 1.020 (07/10/22 9:11 PM) Invalid Interpretation Code 1.015-1.025 AO Auto Urine SS UA Specimen Type Void (07/10/22 9:11 PM) Invalid Interpretation Code AO Auto Urine SS UA Squam Epithelial LOADED /HPF Invalid Interpretation Code None Seen/HPF AO Auto Urine SS UA Urobilinogen 0.2 E.U./dL Invalid Interpretation Code 0.2-1.0E.U./dL AO Auto Urine SS WBC LM.HPF (Urine sed) [#/Area] 15-25 /HPF Invalid Interpretation Code None Seen/HPF AO Auto Urine SS UAon 07-10-2022 Color (U) Yellow Normal [facility] ([place]) Comment on above: Performed By: #### U AMICAO, UA #### [place] [address] Glucose (U) [Mass/Vol] Negative Normal Negative [facility] ([place]) Comment on above: Performed By: #### U AMICAO, UA #### [address] [address] Ketones Ql (U) Negative Normal Negative [facility] ([place]) Comment on above: Performed By: #### U AMICAO, UA #### [address] [address] UA Appear Slightly Cloudy Abnormal Clear [facility] ([place]) Comment on above: Performed By: #### U AMICAO, UA #### [address] [address] UA Blood Negative Normal Negative [facility] ([place]) Comment on above: Performed By: #### U AMICAO, UA #### [address] [address] UA Leuk Est Small Abnormal Negative [facility] ([place]) Comment on above: Performed By: #### U AMICAO, UA #### [address] [address] UA Nitrite Negative Normal Negative [facility] ([place]) Comment on above: Performed By: #### U AMICAO, UA #### [address] [address] UA pH 7.0 Normal 5.0 - 8.0 [facility] ([place]) Comment on above: Performed By: #### U AMICAO, UA #### [address] [address] UA Protein Negative Normal Negative [facility] ([place]) Comment on above: Performed By: #### U AMICAO, UA #### [address] [address] UA Spec Grav 1.020 Normal 1.015-1.025 [facility] ([place]) Comment on above: Performed By: #### U AMICAO, UA #### [address] [address] UA Specimen Type Void Normal [facility]) Comment on above: Performed By: #### U AMICAO, UA #### [address] [address] UA Urobilinogen 0.2 E.U./dL Normal 0.2-1.0 [facility] ([place]) Comment on above: Performed By: #### U AMICAO, UA #### [address] [address] Urobilinogen (U) [Mass/Vol] Negative Normal Negative [facility] ([place]) Comment on above: Performed By: #### U AMICAO, UA #### [address] [address] URINE OB DIP B/Oon 3 Glucose Ql (U) Negative Neg mg/dL [facility] Protein.monoclonal (U) [Mass/Vol] Negative Neg mg/dL [facility] OBSTETRIC ULTRASOUND WHIon 0 06-19-2022 [facility] URINE OB DIP B/Oon 3 Glucose Ql (U) Negative Neg mg/dL [facility] Protein.monoclonal (U) [Mass/Vol] Negative Neg mg/dL [facility] OBSTETRIC ULTRASOUND WHIon 1 07-22-2021 [facility] URINE OB DIP B/Oon Glucose Ql (U) Negative Neg mg/dL [facility] Protein.monoclonal (U) [Mass/Vol] Negative Neg mg/dL [facility] Absolute lymphocyte counton 04-13-2022 Lymphocytes Auto (Unsp spec) [#/Vol] 1.61 10*3/uL 0.83-4.51 [facility] Work Phone: Basophil percentageon 2021 Basophil percentage 5-10 SEEN /hpf 0-5 [facility] Work Phone: [phone] Basophils/100 WBC (Bld) 0.4 % 0-1 [facility] Work Phone: Eosinophils/100 WBC (Bld) 0.7 % 0-5 [facility] Work Phone: Neutrophils (Bld) [#/Vol] 5.5 10*3/uL 2.0-7.7 [facility] Work Phone: [phone] Neutrophils/100 WBC (Bld) 72.2 % 47-70 [facility] Work Phone: [phone] WBC (Bld) [#/Vol] 7.6 10*3/uL 4.4-11.0 [facility] Work Phone: Bilirubin Test strip Ql (U)o n 04-13-2022 Bilirubin Ql (U) Negative Negative [facility] Work Phone: [phone] Blood erythrocytes count (nu mber/volume)on 04-13-2022 RBC (Bld) [#/Vol] 4.30 10*6/uL 4.2-5.4 [facility] Work Phone: Blood hemoglobin measurement (mass/volume)on 04-13-2022 Hemoglobin (Bld) [Mass/Vol] 12.7 g/dL 12.0-15.0 [facility] Work Phone: Blood lymphocytes/100 leukoc yteson 04-13-2022 Lymphocytes/100 WBC (Bld) 21.2 % 19-41 [facility] Work Phone: Blood monocytes/100 leukocyt eson 04-13-2022 Monocytes/100 WBC (Bld) 5.0 % 0-10 [facility] Work Phone: Blood platelet mean volumeon 04-13-2022 Platelet mean volume (Bld) [Entitic vol] 10.5 fL 6.2-12.0 [facility] Work Phone: Determination of erythrocyte mean corpuscular volume (MCV)on 04-13-2022 MCV (RBC) [Entitic vol] 88.6 fL 81-99 [facility] Work Phone: Hematocrit Auto (Bld) [Volum e fraction]on 04-13-2022 Hematocrit (Bld) [Volume fraction] 38.1 % 37-47 [facility] Work Phone: Ketones Test strip Ql (U)on 04-13-2022 Ketones Ql (U) Negative Negative [facility] Work Phone: Laboratory - Hematology and Cell countson 04-13-2022 Erythrocyte distribution width (RBC) [Entitic vol] 42.2 fL 35.1-43.9 [facility] Work Phone: Erythrocyte distribution width (RBC) [Ratio] 13.1 % 11.6-14.6 [facility] Work Phone: Immature granulocytes/100 WBC (Bld) 0.500 % 0.0-0.9 [facility] Work Phone: Comment on above: IG% - Immature Granu locytes (promyelocytes, myelocytes and metamyelocytes) > 1% indicates that a LEFT SHIFT is Present. MCH (RBC) [Entitic mass] 29.5 pg 27.0-32.0 [facility] Work Phone: Nucleated RBC/100 WBC (Bld) [Ratio] 0 % 0-5 [facility] Work Phone: MCHC Auto (RBC) [Mass/Vol]on 04-13-2022 MCHC (RBC) [Mass/Vol] 33.3 g/dL 32-36 [facility] Work Phone: Mucus LM Ql (Urine sed)on Mucus Ql (Urine sed) 0 SEEN /hpf [facility] Work Phone: Nitrite Test strip Ql (U)on 04-13-2022 Nitrite Ql (U) Negative Negative [facility] Work Phone: No Panel Informationon 04-13 Urine Transitional Epithelial Cells 0-5 SEEN /hpf 0-5 [facility] Work Phone: Platelets bldon 04-13-2022 Platelets (Bld) [#/Vol] 226 10*3/uL 150-450 [facility] Work Phone: Protein Test strip Ql (U)on 04-13-2022 Protein Ql (U) 30 mg/dl Negative [facility] Work Phone: Serum or plasma choriogonado tropin detectionon 04-13-2022 HCG ( test[place] [address] mIU/mL <4 [facility] Work Phone: Comment on above: hCG levels with Gest ational AgeGestational Age hCG mIU/mL (IU/L)0.2 - 1 week 5 - 501-2 weeks 50 - 5002-3 weeks 100 - 38728-5 weeks 500 - 649483-2 weeks 1000 - 819936-0 weeks 75688 - 100,0006-8 weeks 29335 - 200,0002-3 months [address] - 100,000 Squamous epithelial cells de tection in urine sediment by light microscopyon 04-13-2022 Epithelial cells.squamous LM Ql (Urine sed) 0-5 SEEN /hpf 5-10 [facility] Work Phone: Urine blood detectionon 04-02 RBC Ql (U) 250 /ul Negative [facility] Work Phone: RBC Ql (U) 10-25 SEEN /hpf 0-5 [facility] Work Phone: Urine clarityon 04-13-2022 Clarity (U) Sl. Cloudy Clear [facility] Work Phone: Urine color determinationon 04-13-2022 Color (U) Yellow Yellow [facility] Work Phone: Urine glucose detectionon Glucose Ql (U) Normal mg/dl Normal [facility] Work Phone: Urine leukocyte esterase det ection by dipstickon 04-13-2022 Leukocyte esterase Test strip Ql (U) 100 /ul Negative [facility] Work Phone: Urine pHon 04-13-2022 pH (U) 5.0 [pH] 5.0 - 8.0 [facility] Work Phone: Urine sediment bacteria coun t by microscopy (number/high power field)on 04-13-2022 Bacteria LM.HPF (Urine sed) [#/Area] 1 /[HPF] None Seen [facility] Work Phone: Urine specific gravity measu rementon 04-13-2022 Specific gravity (U) [Rel density] 1.020 1.002-1.030 [facility] Work Phone: Urobilinogen Auto test strip Ql (U)on 04-13-2022 Urobilinogen Ql (U) Normal mg/dl Normal [facility] Work Phone: CBC panel Auto (Bld)on 02-28 Erythrocyte distribution width (RBC) [Ratio] 13.3 % 11.5 - 15.0 % [facility] Hematocrit (Bld) [Volume fraction] 38.8 % 36.0 - 46.0 % [facility] Hemoglobin (Bld) [Mass/Vol] 12.9 g/dL 11.5 - 15.5 g/dL [facility] MCH (RBC) [Entitic mass] 29.9 pg 26.0 - 34.0 pg [facility] MCHC (RBC) [Mass/Vol] 33.2 g/dL 30.5 - 36.0 g/dL [facility] MCV (RBC) [Entitic vol] 90.0 fL 80.0 - 100.0 fL [facility] Nucleated RBC (Bld) [#/Vol] <0.01 k/uL [facility] Platelet mean volume (Bld) [Entitic vol] 10.6 fL 9.0 - 12.7 fL [facility] Platelets (Bld) [#/Vol] 226 10*3/uL 150 - 400 k/uL [facility] RBC (Bld) [#/Vol] 4.31 10*6/uL 3.90 - 5.2 0 m/uL [facility] WBC (Bld) [#/Vol] 7.53 10*3/uL 3.70 - 11. 00 k/uL [facility] HCG QUAL UR B/Oon 02-05-2022 status Positive neg - pos [facility] Quality Check Yes [facility] Absolute lymphocyte counton 08-28-2021 Lymphocytes Auto (Unsp spec) [#/Vol] 0.34 10*3/uL 0.83-4.51 [facility] Work Phone: Basophil percentageon 2021 Basophils/100 WBC (Bld) 0.2 % 0-1 [facility] Work Phone: Eosinophils/100 WBC (Bld) 0.3 % 0-5 [facility] Work Phone: Neutrophils (Bld) [#/Vol] 7.9 10*3/uL 2.0-7.7 [facility] Work Phone: Neutrophils/100 WBC (Bld) 89.2 % 47-70 [facility] Work Phone: WBC (Bld) [#/Vol] 8.9 10*3/uL 4.4-11.0 [facility] Work Phone: Bilirubin [Mass/Vol] 0.30 mg/dL 0.20-1.00 [facility] Work Phone: Comment on above: For patients on eltr ombopag therapy, use of Dimension [place] TBIL is not recommended. Chloride [Moles/Vol] 116 mmol/L 98-107 [facility] Work Phone: Glucose [Mass/Vol] 95 mg/dL 74-106 [facility] Work Phone: Potassium [Moles/Vol] 3.8 mmol/L 3.5-5.1 [facility] Work Phone: Protein [Mass/Vol] 7.1 g/dL 6.4-8.2 [facility] Work Phone: [phone] Sodium [Moles/Vol] 141 mmol/L 136-145 [facility] Work Phone: Basophil percentage 0 SEEN /hpf [facility] Work Phone: Bilirubin Test strip Ql (U)o n 08-28-2021 Bilirubin Ql (U) Negative Negative [facility] Work Phone: Blood erythrocytes count (nu mber/volume)on 08-28-2021 RBC (Bld) [#/Vol] 4.51 10*6/uL 4.2-5.4 [facility] Work Phone: Blood hemoglobin measurement (mass/volume)on 08-28-2021 Hemoglobin (Bld) [Mass/Vol] 13.8 g/dL 12.0-15.0 [facility] Work Phone: Blood lymphocytes/100 leukoc yteson 08-28-2021 Lymphocytes/100 WBC (Bld) 3.8 % 19-41 [facility] Work Phone: Blood monocytes/100 leukocyt eson 08-28-2021 Monocytes/100 WBC (Bld) 6.1 % 0-10 [facility] Work Phone: Blood platelet mean volumeon 08-28-2021 Platelet mean volume (Bld) [Entitic vol] 10.6 fL 6.2-12.0 [facility] Work Phone: Determination of erythrocyte mean corpuscular volume (MCV)on 08-28-2021 MCV (RBC) [Entitic vol] 91.4 fL 81-99 [facility] Work Phone: Hematocrit Auto (Bld) [Volum e fraction]on 08-28-2021 Hematocrit (Bld) [Volume fraction] 41.2 % 37-47 [facility] Work Phone: Ketones Test strip Ql (U)on 08-28-2021 Ketones Ql (U) Negative Negative [facility] Work Phone: Laboratory - Chemistry and C hemistry - challengeon 08-28-2021 ALP [Catalytic activity/Vol] 131 U/L 45-117 [facility] Work Phone: ALT [Catalytic activity/Vol] 44 U/L 13-56 [facility] Work Phone: CO2 [Moles/Vol] 19.0 mmol/L 21.0-32.0 [facility] Work Phone: Globulin (S) [Mass/Vol] 3.5 g/dL 2.2-4.2 [facility] Work Phone: Urea nitrogen/Creatinine [Mass ratio] 14.5 mg/mg 10-20 [facility] Work Phone: HCG ( test) Ql (U) Negative [facility] Work Phone: Comment on above: Very dilute urine sp ecimens, as indicated by a low specificgravity, may not contain traveling sales representative levels of hCG. If is still suspected, a first morning urinespecimen should be collected 48 hours later and tested. Laboratory - Hematology and Cell countson 08-28-2021 Erythrocyte distribution width (RBC) [Entitic vol] 46.7 fL 35.1-43.9 [facility] Work Phone: Erythrocyte distribution width (RBC) [Ratio] 13.9 % 11.6-14.6 [facility] Work Phone: Immature granulocytes/100 WBC (Bld) 0.400 % 0.0-0.9 [facility] Work Phone: Comment on above: IG% - Immature Granu locytes (promyelocytes, myelocytes and metamyelocytes) > 1% indicates that a LEFT SHIFT is Present. MCH (RBC) [Entitic mass] 30.6 pg 27.0-32.0 [facility] Work Phone: Nucleated RBC/100 WBC (Bld) [Ratio] 0 % 0-5 [facility] Work Phone: MCHC Auto (RBC) [Mass/Vol]on 08-28-2021 MCHC (RBC) [Mass/Vol] 33.5 g/dL 32-36 [facility] Work Phone: Mucus LM Ql (Urine sed)on Mucus Ql (Urine sed) 1+ [facility]: Nitrite Test strip Ql (U)on 08-28-2021 Nitrite Ql (U) Negative Negative [facility] Work Phone: No Panel Informationon 08-28 Estimated Creatinine Clearance Calc 77.17 ml/min [facility] Work Phone: Estimated GFR (MDRD) Amer 95 mL/min >60 [facility] Work Phone: Comment on above: GFR Calc Estimated GFR (MDRD) Non-Af Amer 78 mL/min >60 [facility] Work Phone: Comment on above: Non- GFR Calc Platelets bldon 08-28-2021 Platelets (Bld) [#/Vol] 213 10*3/uL 150-450 [facility] Work Phone: Protein Test strip Ql (U)on 08-28-2021 Protein Ql (U) 15 mg/dl Negative [facility] Work Phone: Serum or plasma albumin yogesh urement (mass/volume)on 08-28-2021 Albumin [Mass/Vol] 3.6 g/dL 3.2-5.0 [facility] Work Phone: Serum or plasma albumin/glob ulin mass ratioon 08-28-2021 Albumin/Globulin [Mass ratio] 1.0 {ratio} 0.9-2.4 [facility] Work Phone: Serum or plasma calcium yogesh urement (mass/volume)on 08-28-2021 Calcium [Mass/Vol] 8.8 mg/dL 8.5-10.1 [facility] Work Phone: Serum or plasma creatinine m easurement (mass/volume)on 08-28-2021 Creatinine [Mass/Vol] 0.97 mg/dL 0.55-1.02 [facility] Work Phone: Comment on above: The validity of the calculated GFR & GFRAA in patients over 70 years has not been determined. Clinical correlation is essential. Serum or plasma urea nitroge n measurement (mass/volume)on 08-28-2021 Urea nitrogen [Mass/Vol] 14 mg/dL 7-18 [facility] Work Phone: Squamous epithelial cells de tection in urine sediment by light microscopyon 08-28-2021 Epithelial cells.squamous LM Ql (Urine sed) 0-5 SEEN /hpf [facility] Work Phone: Thin prep Papanicolaou smear with manual screeningon 08-28-2021 Thin prep Papanicolaou smear with manual screening 23 U/L 15-37 [facility] Work Phone: Thin prep Papanicolaou smear with manual screening 6 5-15 [facility] Work Phone: Urine blood detectionon 08-01 RBC Ql (U) Negative Negative [facility] Work Phone: RBC Ql (U) 0 SEEN /hpf [facility] Work Phone: Urine clarityon 08-28-2021 Clarity (U) Sl. Cloudy Clear [facility] Work Phone: Urine color determinationon 08-28-2021 Color (U) Yellow Yellow [facility] Work Phone: Urine glucose detectionon Glucose Ql (U) Normal mg/dl Normal [facility] Work Phone: Urine leukocyte esterase det ection by dipstickon 08-28-2021 Leukocyte esterase Test strip Ql (U) Negative Negative [facility] Work Phone: Urine pHon 08-28-2021 pH (U) 6.5 [pH] [facility] Work Phone: Urine sediment bacteria coun t by microscopy (number/high power field)on 08-28-2021 Bacteria LM.HPF (Urine sed) [#/Area] 2 /[HPF] None Seen [facility] Work Phone: Urine specific gravity measu rementon 08-28-2021 Specific gravity (U) [Rel density] 1.015 [facility] Work Phone: Urobilinogen Auto test strip Ql (U)on 08-28-2021 Urobilinogen Ql (U) Normal mg/dl Normal [facility] Work Phone: STREP A MOLECULAR (POC)on Procedural Control Valid [facility] Strep A (POCT) Negative Negative [facility] Clobazam and metabolite, Son 09-12-2020 Clobazam 878.0 ng/mL High 30-300 [facility] Comment on above: Order Comment: Relea se to patient->Automatic 78677&Blood Peak, Trough, or Random?->Trough 21001&Blood Performed By: #### C ARMINDA #### [address] [address] N-desmethylclobazam 5300.0 ng/mL High 300-3000 [facility] Comment on above: Order Comment: Relea se to patient->Automatic 51969&Blood Peak, Trough, or Random?->Trough 57139&Blood Result Comment: ADDITIONAL INFORMATION This test was developed and its performance characteristics determined by [facility] in a manner consistent with CLIA requirements. This test has not been cleared or approved by the U.S. Food and Drug Administration. Test Performed by: [facility] [address] [place] [address] Head Of Academic Technology: Manuelito Dennison M.D. Ph.D.; CLIA# [id number] Performed By: #### C ARMINDA #### [address] [address] Zonisamide/Zonegranon 2020 Zonisamide/Zonegran 40 mcg/mL Normal 10-40 [facility] Comment on above: Order Comment: Relea se to patient->Automatic 47508&Blood Peak, Trough, or Random?->Trough 28984&Blood Result Comment: ADDITIONAL INFORMATION This test was developed and its performance characteristics determined by [facility] in a manner consistent with CLIA requirements. This test has not been cleared or approved by the U.S. Food and Drug Administration. Test Performed by: [facility] [place] [address] Head Of Academic Technology: Manuelito Dennison M.D. Ph.D.; CLIA# [id number] Performed By: #### Z JAHAIRA #### [address] [address] Lacosamide, Serumon 09-12-19 21 Lacosamide, S 3.3 mcg/mL Normal 1.0 - 10.0 [facility] Comment on above: Order Comment: Relea se to patient->Automatic 36735&Blood Peak, Trough, or Random?->Trough 18105&Blood Result Comment: ADDITIONAL INFORMATION This test was developed and its performance characteristics determined by [facility] in a manner consistent with CLIA requirements. This test has not been cleared or approved by the U.S. Food and Drug Administration. Test Performed by: [facility] [place] [address] Head Of Academic Technology: Manuelito Dennison M.D. Ph.D.; CLIA# [id number] Performed By: #### L KAJAL #### [address] [address] Levetiracetam/Keppraon 09-10 Levetiracetam/Keppra 41.6 mcg/mL High 10.0 - 40.0 [facility] Comment on above: Order Comment: Relea se to patient->Automatic 53172&Blood Peak, Trough, or Random?->Trough 34782&Blood Result Comment: ADDITIONAL INFORMATION This test was developed and its performance characteristics determined by [facility] in a manner consistent with CLIA requirements. This test has not been cleared or approved by the U.S. Food and Drug Administration. Test Performed by: [facility] [address] [place] [address] Head Of Academic Technology: Manuelito Dennison M.D. Ph.D.; CLIA# [id number] Performed By: #### L FARHEENET #### [place] [address] Progress Noteon 09-06-2020 [employer] Snaker Authentication Interface Message Text This visit was modified due to the COVID19 pandemic. [facility] Neurology Outpatient Office Visit Date: 09/06/2020 Patient Name:Kiki Ware Patient Primary Care Doctor: Renée Corbett MD History source: Patient and parents Chief Complaint: Chief Complaint Patient presents with Seizures This patient was seen at the request of Renée Corbett MD for specialty care. 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 Etiology or Epilepsy Syndrome: refractory cryptogenic generalized epilepsy Seizure onset: 03/22/14, in 2008 she had 2 GTCs in the same week, was hospitalized Seizure type A: generalized tonic clonic seizures Description: generalized convulsions, usually starts with deviation of head to left, eyes roll up and flutter, head jerks to the left, hands clench Current seizure frequency: infrequent, typically in the morning after she wakes up Length: 30-60 seconds ( initial seizure in March 2014 lasted 10 minutes) Last seizure: 01/13/18, prior to that 01/03/18 Precipitating factors: unknown Seizure type B: myoclonic absence Description: eyelid flutter, eyes roll back, arms extend slightlyextremities tremble, unresponsive Current seizure frequency: multiple a day Length: 20-30 seconds, all closer to 1 minute Last seizure: today Precipitating factors: unknown Seizure type C: myoclonic jerks Description: brief jerks involving upper body, mainly shoulders and arms Current seizure frequency: multiple a day Length: <1second Last seizure: much improved, still daily Precipitating factors: unknown Germán's las visit was 01/15/2018 and last EMU visit was on 03/15/2019. She was admitted for overnight vEEG. At that time improvement in awake pattern was see with brief subclinical seizures seen during sleep. Family subsequently moved to [place] and she was seen by neurologist at [place]. No changes in medications were made. Psychiatry and Neuropsychology assessments were recommended but not done. Overall mom reports that she had about 4 tonic clonic seizures in the past year, the last one was in February 2020 and midazolam was used. She continues to have brief atypical absence seizures with eyelid myoclonia that vary in frequency from 3 to 5 a day to none in few days. These usually occur in brief clusters. Last week she started having drop seizures, she thinks they are related to her menstrual cycle. With these seizures she has fallen and has hit her head. She had one a day for 3 days, none since ED visit on 09/01/2020. She drops to the ground without warning, sits up, looks dazed and confused for about 30 seconds. Family has moved back to [place] 2 months ago. She has been home, hanging out with friends, binge watching certain shows. Her appetite is good, she has changed her diet, weight has been stable. Sleep is good. She stays up late at night and wakes up between 10AM and noon. She takes her meds when she wakes up and before she goes to bed. She has a pill box. She denies missed doses. She is currently treated for fungal vaginitis but otherwise has been healthy. Current AEDs: Vimpat 100/50mg (2 mg/kg/day) Keppra 1500/1500mg (40 mg/kg/d) Zonegran 200mg in AM and 300mg in PM( 6.7 mg/kg/day) Onfi 20 mg BID ( 0.5 mg/kg/day) Vit B6 100mg daily Clonazepam for rescue Mom reports that keppra was the first med, depakote was added quickly because seizures still continued although significantly decreased in frequency. With depakote convulsive seizures resolved. With Zonegran myoclonic jerks subsided. There has been some improvement with addition of onfi. Past AEDs: depakote, keppra, hemp oil AED side effects: weight gain on Depakote- on high dose had poor appetite and weight loss, somnolence, poor sleep. VNS interrogated today, no changes made: Output current: 0.75 mA Frequency: 20Hz Pulse width: 250 microseconds On time left at 30 seconds Off time left at 5 minutes Magnet current 1 mA Magnet pulse width: 500 microseconds Magnet On time: 60 seconds Model Demipulse 103 Serial # [id number] Implanted 02/27/17 Impedance: 3569 Ohms Battery- full HPI from 01/15/2018: Since last clinic visit on 03/26/17, she was admitted for overnight EMU stay to assess degree of epileptiform activity and seizure frequency because Cheyanne was excessively sleepy and loosing weight. During that admission in comparison to previous EEGs, this study showed significant improvement with the lack of interictal discharges in the awake background, but the sleep portion showed only mild improvement in the frequency and duration of the discharges. She did well after wards until 08/13/17, when she had brief convulsive seizure and continued to have 4-5 x/d (more content not included)... Normal [facility] Vital Signs Date Time Vital Sign Value Performing Clinician Facility 11-26-2024 12:59-0400 Body mass index (BMI) [Ratio] 36.32 kg/m2 Rachel Banks APRN.SARAH Work Phone: [facility] 11-26-2024 12:59-0400 Body weight 90.08 kg Rachel Banks REGISTERED NURSE FIRST ASSISTANT.SARAH Work Phone: [facility] 11-26-2024 12:59-0400 Diastolic blood pressure 68 mm[Hg] Rachel Bronx REGISTERED NURSE FIRST ASSISTANT.SARAH Work Phone: [facility] 11-26-2024 12:59-0400 Systolic blood pressure 118 mm[Hg] Rachel Bronx REGISTERED NURSE FIRST ASSISTANT.MEDICAL OFFICE COORDINATOR Work Phone: [facility] 09-15-2024 13:20-0400 Body height 157.5 cm Ariel Gutierrez REGISTERED NURSE FIRST ASSISTANT.MEDICAL OFFICE COORDINATOR Work Phone: [facility] 09-15-2024 13:20-0400 Body mass index (BMI) [Ratio] 37.49 kg/m2 Ariel Gutierrez REGISTERED NURSE FIRST ASSISTANT.MEDICAL OFFICE COORDINATOR Work Phone: [facility] 09-15-2024 13:20-0400 Body weight 92.99 kg Ariel Gutierrez REGISTERED NURSE FIRST ASSISTANT.MEDICAL OFFICE COORDINATOR Work Phone: [facility] 09-15-2024 13:20-0400 Diastolic blood pressure 60 mm[Hg] Ariel Gutierrez REGISTERED NURSE FIRST ASSISTANT.MEDICAL OFFICE COORDINATOR Work Phone: [facility] 09-15-2024 13:20-0400 Systolic blood pressure 112 mm[Hg] Ariel Gutierrez REGISTERED NURSE FIRST ASSISTANT.MEDICAL OFFICE COORDINATOR Work Phone: [facility] 05-18-2024 14:00-0500 Body temperature 98.6 [degF] MONA YAIRKA DO [facility] 05-18-2024 14:00-0500 Diastolic Blood Pressure Non-Invasive 79 mm[Hg] MONA KAYLENEESKA DO [facility] 05-18-2024 14:00-0500 Heart rate 76 /min MONA KAYLENEESKA DO [facility] 05-18-2024 14:00-0500 Respiratory rate 18 /min MONA KAYLENEESKA DO [facility] 05-18-2024 14:00-0500 Systolic Blood Pressure Non-Invasive 127 mm[Hg] MONA DURESKA DO [facility] 05-13-2024 11:42-0500 Body mass index (BMI) [Ratio] 35.07 kg/m2 Nurse Wstr Work Phone: [facility] 05-13-2024 11:42-0500 Body weight 89.81 kg Nurse Wstr Work Phone: [facility] 05-13-2024 11:42-0500 Diastolic blood pressure 87 mm[Hg] Nurse Wstr Work Phone: [facility] 05-13-2024 11:42-0500 Systolic blood pressure 120 mm[Hg] Nurse Wstr Work Phone: [facility] 03-05-2024 16:33-0400 Body mass index (BMI) [Ratio] 35.85 kg/m2 Ariel Haury REGISTERED NURSE FIRST ASSISTANT.MEDICAL OFFICE COORDINATOR Work Phone: [facility] 03-05-2024 16:33-0400 Body weight 91.81 kg Ariel Hakin REGISTERED NURSE FIRST ASSISTANT.MEDICAL OFFICE COORDINATOR Work Phone: [facility] 03-05-2024 16:33-0400 Diastolic blood pressure 74 mm[Hg] Ariel Haury REGISTERED NURSE FIRST ASSISTANT.MEDICAL OFFICE COORDINATOR Work Phone: [facility] 03-05-2024 16:33-0400 Systolic blood pressure 118 mm[Hg] Ariel Haury REGISTERED NURSE FIRST ASSISTANT.MEDICAL OFFICE COORDINATOR Work Phone: [facility] 02-19-2024 14:40-0400 Body height 160 cm Ruben Tellez MD Work Phone: [facility] 02-19-2024 14:40-0400 Body mass index (BMI) [Ratio] 35.07 kg/m2 Ruben Tellez MD Work Phone: [facility] 02-19-2024 14:40-0400 Body weight 89.81 kg Ruben Tellez MD Work Phone: [facility] 02-19-2024 14:40-0400 Diastolic blood pressure 63 mm[Hg] Ruben Tellez MD Work Phone: [facility] 02-19-2024 14:40-0400 Heart rate 106 /min Ruben Tellez MD Work Phone: [facility] 02-19-2024 14:40-0400 SaO2% (BldA) [Mass fraction] 97 % Rbuen Tellez MD Work Phone: [facility] 02-19-2024 14:40-0400 Systolic blood pressure 109 mm[Hg] Ruben Tellez MD Work Phone: [facility] 01-23-2024 09:48-0400 Body height 157.5 cm Ruben Tellez MD Work Phone: [facility] 01-23-2024 09:48-0400 Diastolic blood pressure 88 mm[Hg] Ruben Tellez MD Work Phone: [facility] 01-23-2024 09:48-0400 Heart rate 98 /min Ruben Tellez MD Work Phone: [facility] 01-23-2024 09:48-0400 Respiratory rate 16 /min Ruben Tellez MD Work Phone: [facility] 01-23-2024 09:48-0400 Systolic blood pressure 118 mm[Hg] Ruben Tellez MD Work Phone: [facility] 01-22-2024 11:59-0400 Body mass index (BMI) [Ratio] 35.38 kg/m2 Nurse Wstr Work Phone: [facility] 01-22-2024 11:59-0400 Body weight 93.44 kg Nurse Wstr Work Phone: [facility] 01-22-2024 11:59-0400 Diastolic blood pressure 74 mm[Hg] Nurse Wstr Work Phone: [facility] 01-22-2024 11:59-0400 Systolic blood pressure 118 mm[Hg] Nurse Wstr Work Phone: [facility] 01-14-2024 10:35-0400 Body height 162.5 cm Ariel Gutierrez APRN.MEDICAL OFFICE COORDINATOR Work Phone: [facility] 01-14-2024 10:35-0400 Body mass index (BMI) [Ratio] 36.41 kg/m2 Ariel Gutierrez APRN.MEDICAL OFFICE COORDINATOR Work Phone: [facility] 01-14-2024 10:35-0400 Body weight 96.16 kg Ariel Haury REGISTERED NURSE FIRST ASSISTANT.MEDICAL OFFICE COORDINATOR Work Phone: [facility] 01-14-2024 10:35-0400 Diastolic blood pressure 82 mm[Hg] Ariel Haury REGISTERED NURSE FIRST ASSISTANT.MEDICAL OFFICE COORDINATOR Work Phone: [facility] 01-14-2024 10:35-0400 Heart rate 98 /min Ariel Haury REGISTERED NURSE FIRST ASSISTANT.MEDICAL OFFICE COORDINATOR Work Phone: [facility] 01-14-2024 10:35-0400 Respiratory rate 16 /min Ariel Haury REGISTERED NURSE FIRST ASSISTANT.MEDICAL OFFICE COORDINATOR Work Phone: [facility] 01-14-2024 10:35-0400 SaO2% (BldA) [Mass fraction] 97 % Ariel Haury REGISTERED NURSE FIRST ASSISTANT.MEDICAL OFFICE COORDINATOR Work Phone: [facility] 01-14-2024 10:35-0400 Systolic blood pressure 114 mm[Hg] Ariel Haury REGISTERED NURSE FIRST ASSISTANT.MEDICAL OFFICE COORDINATOR Work Phone: [facility] 07-16-2023 11:09-0500 Body height 160 cm Ruben Tellez MD Work Phone: [facility] 07-16-2023 11:09-0500 Body weight 88.91 kg Ruben Tellez MD Work Phone: [facility] 07-16-2023 11:09-0500 Diastolic blood pressure 88 mm[Hg] Ruben Tellez MD Work Phone: [facility] 07-16-2023 11:09-0500 Heart rate 112 /min Ruben Tellez MD Work Phone: [facility] 07-16-2023 11:09-0500 Respiratory rate 18 /min Ruben Tellez MD Work Phone: [facility] 07-16-2023 11:09-0500 Systolic blood pressure 131 mm[Hg] Ruben Tellez MD Work Phone: [facility] 05-02-2023 17:31-0500 Body height 157.48 cm [facility] 05-02-2023 17:31-0500 Body mass index (BMI) [Ratio] 36.5 kg/m2 [facility] 05-02-2023 17:31-0500 Body temperature 98.2 [degF] [facility] 05-02-2023 17:31-0500 Body weight 90.5 kg [facility] 05-02-2023 17:31-0500 Diastolic blood pressure 85 mm[Hg] [facility] 05-02-2023 17:31-0500 Heart rate 87 /min [facility] 05-02-2023 17:31-0500 Respiratory rate 14 /min [facility] 05-02-2023 17:31-0500 SaO2% (BldA) [Mass fraction] 100 % [facility] 05-02-2023 17:31-0500 Systolic blood pressure 129 mm[Hg] [facility] 05-02-2023 11:43-0500 Body weight 88.91 kg Nurse Wstr Work Phone: [facility] 05-02-2023 11:43-0500 Diastolic blood pressure 82 mm[Hg] Nurse Wstr Work Phone: [facility] 05-02-2023 11:43-0500 Systolic blood pressure 122 mm[Hg] Nurse Wstr Work Phone: [facility] 03-31-2023 19:23-0400 Body temperature 99 [degF] Minerva Mcdaniel APRN.MEDICAL OFFICE COORDINATOR Work Phone: [facility] 03-31-2023 19:23-0400 Body weight 90.45 kg Minerva Mcdaniel APRN.MEDICAL OFFICE COORDINATOR Work Phone: [facility] 03-31-2023 19:23-0400 Diastolic blood pressure 80 mm[Hg] Minerva Mcdaniel APRN.MEDICAL OFFICE COORDINATOR Work Phone: [facility] 03-31-2023 19:23-0400 Heart rate 102 /min Minerva Mcdaniel APRN.MEDICAL OFFICE COORDINATOR Work Phone: [facility] 03-31-2023 19:23-0400 Respiratory rate 16 /min Minerva Mcdaniel APRN.MEDICAL OFFICE COORDINATOR Work Phone: [facility] 03-31-2023 19:23-0400 SaO2% (BldA) [Mass fraction] 98 % Minerva Mcdaniel REGISTERED NURSE FIRST ASSISTANT.MEDICAL OFFICE COORDINATOR Work Phone: [facility] 03-31-2023 19:23-0400 Systolic blood pressure 122 mm[Hg] Minerva Mcdaniel APRN.MEDICAL OFFICE COORDINATOR Work Phone: [facility] 12-12-2022 09:50-0400 Diastolic blood pressure 70 mm[Hg] Ruben Tellez MD Work Phone: [facility] 12-12-2022 09:50-0400 Heart rate 97 /min Ruben Tellez MD Work Phone: [facility] 12-12-2022 09:50-0400 SaO2% (BldA) [Mass fraction] 97 % Ruben Tellez MD Work Phone: [facility] 12-12-2022 09:50-0400 Systolic blood pressure 110 mm[Hg] Ruben Tellez MD Work Phone: [facility] 12-04-2022 09:47-0400 Body weight 87.91 kg Nurse Wstr Work Phone: [facility] 12-04-2022 09:47-0400 Diastolic blood pressure 60 mm[Hg] Nurse Wstr Work Phone: [facility] 12-04-2022 09:47-0400 Systolic blood pressure 100 mm[Hg] Nurse Wstr Work Phone: [facility] 12-02-2022 16:09-0400 Body weight 88.63 kg Evie Crane MD Work Phone: [facility] 12-02-2022 16:09-0400 Diastolic blood pressure 60 mm[Hg] Evie Crane MD Work Phone: [facility] 12-02-2022 16:09-0400 Systolic blood pressure 102 mm[Hg] Evie Crane MD Work Phone: [facility] 09-18-2022 14:23-0400 Diastolic blood pressure 80 mm[Hg] Caleb Santos MD Work Phone: [facility] 09-18-2022 14:23-0400 Respiratory rate 18 /min Caleb Santos MD Work Phone: [facility] 09-18-2022 14:23-0400 Systolic blood pressure 140 mm[Hg] Caleb Santos MD Work Phone: [facility] 09-14-2022 22:23-0400 Body temperature 97.88 [degF] DR ANDREI TOSCANO DO [facility] 09-14-2022 22:23-0400 Diastolic Blood Pressure Non-Invasive [address] ANDREI TOSCANO DO [facility] 09-14-2022 22:23-0400 Heart rate 107 /min DR ANDREI TOSCANO DO [facility] 09-14-2022 22:23-0400 Systolic Blood Pressure Non-Invasive [address] ANDREI TOSCANO DO [facility] 09-14-2022 22:15-0400 Body height [address] ANDREI TOSCANO DO [facility] 09-14-2022 22:15-0400 Body weight [address] ANDREI TOSCANO DO [facility] 09-14-2022 22:15-0400 Body weight 36.72 kg/m2 DR ANDREI TOSCANO DO [facility] 09-03-2022 12:59-0400 Body height 160 cm Layo Pteers MD Work Phone: [facility] 09-03-2022 12:59-0400 Body weight 95.71 kg Layo Peters MD Work Phone: [facility] 09-03-2022 12:59-0400 Diastolic blood pressure 83 mm[Hg] Layo Peters MD Work Phone: [facility] 09-03-2022 12:59-0400 Heart rate 133 /min Layo Peters MD Work Phone: [facility] 09-03-2022 12:59-0400 SaO2% (BldA) [Mass fraction] 97 % Layo Peters MD Work Phone: [facility] 09-03-2022 12:59-0400 Systolic blood pressure 126 mm[Hg] Layo Petres MD Work Phone: [facility] 08-27-2022 15:08-0400 Body weight 94.35 kg Arianne Briggs MD Work Phone: [facility] 08-27-2022 15:08-0400 Diastolic blood pressure 82 mm[Hg] Arianne Briggs MD Work Phone: [facility] 08-27-2022 15:08-0400 Respiratory rate 18 /min Arianne Briggs MD Work Phone: [facility] 08-27-2022 15:08-0400 Systolic blood pressure 126 mm[Hg] Arianne Briggs MD Work Phone: [facility] 08-24-2022 09:02-0400 Diastolic blood pressure 59 mm[Hg] [facility] 08-24-2022 09:02-0400 Heart rate 97 /min [facility] 08-24-2022 09:02-0400 Systolic blood pressure 105 mm[Hg] [facility] 08-24-2022 08:24-0400 Body temperature 97.1 [degF] [facility] 08-24-2022 08:24-0400 SaO2% (BldA) [Mass fraction] 98 % [facility] 08-24-2022 08:00-0400 Diastolic blood pressure 84 mm[Hg] [facility] 08-24-2022 08:00-0400 Heart rate 71 /min [facility] 08-24-2022 08:00-0400 Respiratory rate 16 /min [facility] 08-24-2022 08:00-0400 Systolic blood pressure 135 mm[Hg] [facility] 08-24-2022 05:22-0400 Body height 160.02 cm [facility] 08-24-2022 05:22-0400 Body mass index (BMI) [Ratio] 37.8 kg/m2 [facility] 08-24-2022 05:22-0400 Body temperature 97.6 [degF] [facility] 08-24-2022 05:22-0400 Body weight 96.8 kg [facility] 08-23-2022 03:22-0400 Body temperature 98.06 [degF] DR LAURENT PANCHAL MD [facility] 08-23-2022 03:22-0400 Diastolic Blood Pressure Non-Invasive [address] LAURENT PANCHAL MD [facility] 08-23-2022 03:22-0400 Heart rate 99 /min DR LAURENT PANCHAL MD [facility] 08-23-2022 03:22-0400 Systolic Blood Pressure Non-Invasive [address] LAURENT PANCHAL MD [facility] 08-23-2022 02:30-0400 Heart rate 106 /min DR LAURENT PANCHAL MD [facility] 08-23-2022 02:30-0400 Respiratory rate 20 /min DR LAURENT PANCHAL MD [facility] 08-23-2022 01:30-0400 Body height [address] LAURENT PANCHAL MD [facility] 08-23-2022 01:30-0400 Body temperature 97.7 [degF] DR LAURENT PANCHAL MD [facility] 08-23-2022 01:30-0400 Body weight 93.[address] LAURENT PANCHAL MD [facility] 08-23-2022 01:30-0400 Diastolic Blood Pressure Non-Invasive [address] LAURENT PANCHAL MD [facility] 08-23-2022 01:30-0400 Heart rate 103 /min DR LAURENT PANCHAL MD [facility] 08-23-2022 01:30-0400 Respiratory rate 20 /min DR LAURENT PANCHAL MD [facility] 08-23-2022 01:30-0400 Systolic Blood Pressure Non-Invasive [address] LAURENT PANCHAL MD [facility] 07-31-2022 13:13-0500 Body weight 92.44 kg Maria Eugenia Plotts REGISTERED NURSE FIRST ASSISTANT.CNM Work Phone: [facility] 07-31-2022 13:13-0500 Diastolic blood pressure 76 mm[Hg] Maria Eugenia Plotts REGISTERED NURSE FIRST ASSISTANT.CNM Work Phone: [facility] 07-31-2022 13:13-0500 Systolic blood pressure 110 mm[Hg] Maria Eugenia Plotts REGISTERED NURSE FIRST ASSISTANT.CNM Work Phone: [facility] 07-24-2022 14:23-0500 Body weight 88.91 kg Alivia Trent MD Work Phone: [facility] 07-24-2022 14:23-0500 Diastolic blood pressure 72 mm[Hg] Alivia Trent MD Work Phone: [facility] 07-24-2022 14:23-0500 Systolic blood pressure 110 mm[Hg] Alivia Trent MD Work Phone: [facility] 07-16-2022 13:18-0500 Body weight 87.54 kg Sheila Hernandez MD Work Phone: [facility] 07-16-2022 13:18-0500 Diastolic blood pressure 76 mm[Hg] Sheila Hernandez MD Work Phone: [facility] 07-16-2022 13:18-0500 Systolic blood pressure 122 mm[Hg] Sheila Hernandez MD Work Phone: [facility] 07-12-2022 11:29-0500 Body temperature 97.52 [degF] KEVIN PEDRAZA MD [facility] 07-12-2022 11:29-0500 Diastolic Blood Pressure Non-Invasive 49 1 KEVIN PEDRAZA MD [facility] 07-12-2022 11:29-0500 Heart rate 111 /min KEVIN PEDRAZA MD [facility] 07-12-2022 11:29-0500 Respiratory rate 18 /min KEVIN PEDRAZA MD [facility] 07-12-2022 11:29-0500 Systolic Blood Pressure Non-Invasive 108 1 KEVIN PEDRAZA MD [facility] 07-12-2022 09:12-0500 Body temperature 97.34 [degF] KEVIN PEDRAZA MD [facility] 07-12-2022 09:12-0500 Diastolic Blood Pressure Non-Invasive 57 1 KEVIN PEDRAZA MD [facility] 07-12-2022 09:12-0500 Heart rate 99 /min KEVIN PEDRAZA MD [facility] 07-12-2022 09:12-0500 Respiratory rate 18 /min KEVIN PEDRAZA MD [facility] 07-12-2022 09:12-0500 Systolic Blood Pressure Non-Invasive 111 1 EKVIN PEDRAZA MD [facility] 07-12-2022 05:35-0500 Body temperature 97.7 [degF] KEVIN PEDRAZA MD [facility] 07-12-2022 05:35-0500 Diastolic Blood Pressure Non-Invasive 55 1 KEVIN PEDRAZA MD [facility] 07-12-2022 05:35-0500 Heart rate 94 /min KEVIN PEDRAZA MD [facility] 07-12-2022 05:35-0500 Respiratory rate 18 /min KEVIN PEDRAZA MD [facility] 07-12-2022 05:35-0500 Systolic Blood Pressure Non-Invasive 103 1 KEVIN PEDRAZA MD [facility] 07-11-2022 04:12-0500 Body height 160 cm KEVIN PEDRAZA MD [facility] 07-11-2022 04:12-0500 Body weight 86 kg KEVIN PEDRAZA MD [facility] 07-11-2022 04:12-0500 Body weight 33.59 kg/m2 KEVIN PEDRAZA MD [facility] 07-11-2022 01:59-0500 Body temperature 98.06 [degF] DR ANDREI TOSCANO DO [facility] 07-11-2022 01:59-0500 Diastolic Blood Pressure Non-Invasive [address] ANDREI TOSCANO DO [facility] 07-11-2022 01:59-0500 Heart rate 103 /min DR ANDREI TOSCANO DO [facility] 07-11-2022 01:59-0500 Respiratory rate 16 /min DR ANDREI TOSCANO DO [facility] 07-11-2022 01:59-0500 Systolic Blood Pressure Non-Invasive [address] ANDREI TOSCANO DO [facility] 07-11-2022 01:44-0500 Body temperature 97.88 [degF] DR ANDREI TOSCANO DO [facility] 07-11-2022 01:44-0500 Diastolic Blood Pressure Non-Invasive [address] ANDREI TOSCANO DO [facility] 07-11-2022 01:44-0500 Heart rate 108 /min DR ANDREI TOSCANO DO [facility] 07-11-2022 01:44-0500 Respiratory rate 16 /min DR ANDREI TOSCANO DO [facility] 07-11-2022 01:44-0500 Systolic Blood Pressure Non-Invasive [address] ANDREI TOSCANO DO [facility] 07-11-2022 01:39-0500 Body temperature 97.88 [degF] DR ANDREI TOSCANO DO [facility] 07-11-2022 01:39-0500 Diastolic Blood Pressure Non-Invasive [address] ANDREI TOSCANO DO [facility] 07-11-2022 01:39-0500 Heart rate 98 /min DR ANDREI TOSCANO DO [facility] 07-11-2022 01:39-0500 Respiratory rate 16 /min DR ANDREI TOSCANO DO [facility] 07-11-2022 01:39-0500 Systolic Blood Pressure Non-Invasive [address] ANDREI TOSCANO DO [facility] 07-10-2022 22:57-0500 Body height [address] ANDREI TOSCANO DO [facility] 07-10-2022 22:57-0500 Body weight [address] ANDREI TOSCANO DO [facility] 07-10-2022 22:57-0500 Body weight 33.59 kg/m2 DR ANDREI TOSCANO DO [facility] 07-10-2022 20:40-[address] ANDREI TOSCANO DO [facility] 07-10-2022 20:40-0500 Body temperature 96.98 [degF] DR ANDREI TOSCANO DO [facility] 07-10-2022 20:40-0500 Heart rate 115 /min DR ANDREI TOSCANO DO [facility] 07-10-2022 20:40-0500 Reason For Taking VItal Signs DR ANDREI TOSCANO DO [facility] 07-03-2022 15:02-0500 Body weight 87.09 kg Alivia Trent MD Work Phone: [facility] 07-03-2022 15:02-0500 Diastolic blood pressure 68 mm[Hg] Alivia Trent MD Work Phone: [facility] 07-03-2022 15:02-0500 Systolic blood pressure 116 mm[Hg] Alivia Trent MD Work Phone: [facility] 06-13-2022 14:30-0500 Body weight 82.56 kg Sheila Hernandez MD Work Phone: [facility] 06-13-2022 14:30-0500 Diastolic blood pressure 64 mm[Hg] Sheila Hernandez MD Work Phone: [facility] 06-13-2022 14:30-0500 Systolic blood pressure 116 mm[Hg] Sheila Hernandez MD Work Phone: [facility] 04-23-2022 14:48-0500 Body weight 76.2 kg Sheila Hernandez MD Work Phone: [facility] 04-23-2022 14:48-0500 Diastolic blood pressure 76 mm[Hg] Sheila Hernandez MD Work Phone: [facility] 04-23-2022 14:48-0500 Systolic blood pressure 106 mm[Hg] Sheila Hernandez MD Work Phone: [facility] 04-23-2022 14:27-0500 Body weight 76.48 kg Reji Lawson MD Work Phone: [facility] 04-23-2022 14:27-0500 Diastolic blood pressure 76 mm[Hg] Reji Lawson MD Work Phone: [facility] 04-23-2022 14:27-0500 Systolic blood pressure 106 mm[Hg] Reji Lawson MD Work Phone: [facility] 04-15-2022 13:16-0500 Body weight 76.66 kg Maria Eugenia Soria REGISTERED NURSE FIRST ASSISTANT.CNM Work Phone: [facility] 04-15-2022 13:16-0500 Diastolic blood pressure 60 mm[Hg] Maria Eugenia Callts REGISTERED NURSE FIRST ASSISTANT.CNM Work Phone: [facility] 04-15-2022 13:16-0500 Systolic blood pressure 102 mm[Hg] Maria Eugenia Soria REGISTERED NURSE FIRST ASSISTANT.CNM Work Phone: [facility] 04-13-2022 19:39-0500 Heart rate 78 /min [facility] Work Phone: 04-13-2022 19:39-0500 Respiratory rate 18 /min [facility] Work Phone: 04-13-2022 19:39-0500 SaO2% (BldA) [Mass fraction] 100 % [facility] Work Phone: 04-13-2022 16:56-0500 Body height 160.02 cm [facility] Work Phone: 04-13-2022 16:56-0500 Body mass index (BMI) [Ratio] 30.1 kg/m2 [facility] Work Phone: 04-13-2022 16:56-0500 Body temperature 97.8 [degF] [facility] Work Phone: 04-13-2022 16:56-0500 Body weight 77.11 kg [facility] Work Phone: 03-26-2022 12:59-0400 Body weight 77.38 kg Reji Lawson MD Work Phone: [facility] 03-26-2022 12:59-0400 Diastolic blood pressure 74 mm[Hg] Reji Lawson MD Work Phone: [facility] 03-26-2022 12:59-0400 Systolic blood pressure 110 mm[Hg] Reji Lawson MD Work Phone: [facility] 03-19-2022 11:00-0400 Body weight 76.84 kg Maria Eugenia Soria REGISTERED NURSE FIRST ASSISTANT.CNM Work Phone: [facility] 03-19-2022 11:00-0400 Diastolic blood pressure 60 mm[Hg] Maria Eugenia Soria REGISTERED NURSE FIRST ASSISTANT.CNM Work Phone: [facility] 03-19-2022 11:00-0400 Systolic blood pressure 100 mm[Hg] Maria Eugenia Soria REGISTERED NURSE FIRST ASSISTANT.CNM Work Phone: [facility] 02-28-2022 15:18-0400 Body weight 77.11 kg Alivia Trent MD Work Phone: [facility] 02-28-2022 15:18-0400 Diastolic blood pressure 70 mm[Hg] Alivia Trent MD Work Phone: [facility] 02-28-2022 15:18-0400 Systolic blood pressure 110 mm[Hg] Alivia Trent MD Work Phone: [facility] 02-07-2022 11:36-0400 Body weight 76.66 kg Sheila Hernandez MD Work Phone: [facility] 02-07-2022 11:36-0400 Diastolic blood pressure 74 mm[Hg] Sheila Hernandez MD Work Phone: [facility] 02-07-2022 11:36-0400 Systolic blood pressure 106 mm[Hg] Sheila Hernandez MD Work Phone: [facility] 02-05-2022 16:23-0400 Body temperature 98.6 [degF] Sonido Figueroa REGISTERED NURSE FIRST ASSISTANT.MEDICAL OFFICE COORDINATOR Work Phone: [facility] 02-05-2022 16:23-0400 Body weight 76.93 kg Sonido Figueroa REGISTERED NURSE FIRST ASSISTANT.MEDICAL OFFICE COORDINATOR Work Phone: [facility] 02-05-2022 16:23-0400 Diastolic blood pressure 64 mm[Hg] Sonido Figueroa REGISTERED NURSE FIRST ASSISTANT.MEDICAL OFFICE COORDINATOR Work Phone: [facility] 02-05-2022 16:23-0400 Heart rate 72 /min Sonido Figueroa REGISTERED NURSE FIRST ASSISTANT.MEDICAL OFFICE COORDINATOR Work Phone: [facility] 02-05-2022 16:23-0400 Respiratory rate 18 /min Sonido Figueroa REGISTERED NURSE FIRST ASSISTANT.MEDICAL OFFICE COORDINATOR Work Phone: [facility] 02-05-2022 16:23-0400 SaO2% (BldA) [Mass fraction] 97 % Sonido Figueroa REGISTERED NURSE FIRST ASSISTANT.MEDICAL OFFICE COORDINATOR Work Phone: [facility] 02-05-2022 16:23-0400 Systolic blood pressure 102 mm[Hg] Sonido Figueroa REGISTERED NURSE FIRST ASSISTANT.MEDICAL OFFICE COORDINATOR Work Phone: [facility] 01-09-2022 11:46-0400 Body weight 76.66 kg Rachel Banks REGISTERED NURSE FIRST ASSISTANT.MEDICAL OFFICE COORDINATOR Work Phone: [facility] 01-09-2022 11:46-0400 Diastolic blood pressure 78 mm[Hg] Rachel Bronx REGISTERED NURSE FIRST ASSISTANT.MEDICAL OFFICE COORDINATOR Work Phone: [facility] 01-09-2022 11:46-0400 Systolic blood pressure 106 mm[Hg] Rachel Darren REGISTERED NURSE FIRST ASSISTANT.MEDICAL OFFICE COORDINATOR Work Phone: [facility] 2021 22:43-0400 Body temperature 98.06 [degF] DR SAMSON GODDARD DO [facility] 2021 22:43-0400 Diastolic blood pressure 80 mm[Hg] DR SAMSON GODDARD DO [facility] 2021 22:43-0400 Heart rate 94 /min DR SAMSON GODDARD DO [facility] 2021 22:43-0400 Respiratory rate 20 /min DR SAMSON GODDARD DO [facility] 2021 22:43-0400 Systolic blood pressure 119 mm[Hg] DR SAMSON GODDARD DO [facility] 10-17-2021 13:06-0400 Body height 160.02 cm [facility] Work Phone: 10-17-2021 13:06-0400 Body mass index (BMI) [Ratio] 28.3 kg/m2 [facility] Work Phone: 10-17-2021 13:06-0400 Body temperature 96.9 [degF] [facility] Work Phone: 10-17-2021 13:06-0400 Body weight 72.57 kg [facility] Work Phone: 10-17-2021 13:06-0400 Diastolic blood pressure 61 mm[Hg] [facility] Work Phone: 10-17-2021 13:06-0400 Heart rate 56 /min [facility] Work Phone: 10-17-2021 13:06-0400 Respiratory rate 16 /min [facility] Work Phone: 10-17-2021 13:06-0400 SaO2% (BldA) [Mass fraction] 99 % [facility] Work Phone: 10-17-2021 13:06-0400 Systolic blood pressure 110 mm[Hg] [facility] Work Phone: 08-28-2021 15:20-0400 Diastolic blood pressure 56 mm[Hg] [facility] Work Phone: 08-28-2021 15:20-0400 Heart rate 68 /min [facility] Work Phone: 08-28-2021 15:20-0400 Respiratory rate 16 /min [facility] Work Phone: 08-28-2021 15:20-0400 Systolic blood pressure 120 mm[Hg] [facility] Work Phone: 08-28-2021 14:23-0400 SaO2% (BldA) [Mass fraction] 97 % [facility] Work Phone: 08-28-2021 11:58-0400 Body height 160.02 cm [facility] Work Phone: 08-28-2021 11:58-0400 Body mass index (BMI) [Ratio] 30 kg/m2 [facility] Work Phone: 08-28-2021 11:58-0400 Body temperature 97.7 [degF] [facility] Work Phone: 08-28-2021 11:58-0400 Body weight 77 kg [facility] Work Phone: 08-22-2021 16:19-0400 Body mass index (BMI) [Percentile] Per age and sex 93.95 % Machelle Wrighty PA-C Work Phone: [facility] 08-22-2021 16:19-0400 Body temperature 99.1 [degF] Machelle Athy PA-C Work Phone: [facility] 08-22-2021 16:19-0400 Body weight 78.29 kg Machelle Athy PA-C Work Phone: [facility] 08-22-2021 16:19-0400 Diastolic blood pressure 80 mm[Hg] Machelle Athy PA-C Work Phone: [facility] 08-22-2021 16:19-0400 Heart rate 80 /min Machelle Athy PA-C Work Phone: [facility] 08-22-2021 16:19-0400 Respiratory rate 18 /min Machelle Athy PA-C Work Phone: [facility] 08-22-2021 16:19-0400 SaO2% (BldA) [Mass fraction] 98 % Machelle Athy PA-C Work Phone: [facility] 08-22-2021 16:19-0400 Systolic blood pressure 122 mm[Hg] Machelle Athy PA-C Work Phone: [facility] Encounters Encounter Date Encounter Type Care Provider Facility Start: 11-26-2024 End: 11-26-2024 Patient encounter procedure Rachel Darren WHEELER Work Phone: OB/Gynecology Comment on above: Missed menses (Prima ry Dx); Unprotected sexual intercourse; Vaginal discharge; Other specified conditions associated with female genital organs and menstrual cycle Start: 11-18-2024 End: 11-18-2024 Telephone encounter Ruben Tellez MD Work Phone: Neurology Start: 11-17-2024 End: 11-22-2024 ambulatory Ruben Tellez MD Work Phone: Neurology Comment on above: Seizures Start: 10-29-2024 End: 10-29-2024 Telephone encounter Ariel Gutierrez APRN.MEDICAL OFFICE COORDINATOR Work Phone: OB/Gynecology Start: 10-04-2024 End: 10-04-2024 Telephone encounter Ariel Gutierrez APRN.MEDICAL OFFICE COORDINATOR Work Phone: OB/Gynecology Comment on above: Patient Question Start: 09-21-2024 End: 09-21-2024 Refill Patrick Arreola APRN.MEDICAL OFFICE COORDINATOR Work Phone: Neurology Epilepsy Comment on above: Refill Request Start: 09-20-2024 End: 09-20-2024 Telephone encounter Ariel Gutierrez APRN.MEDICAL OFFICE COORDINATOR Work Phone: OB/Gynecology Comment on above: Orders Start: 09-16-2024 End: 09-21-2024 ambulatory Ruben Tellez MD Work Phone: Neurology Comment on above: Blood work Start: 09-16-2024 End: 11-16-2024 Follow-up encounter Ariel Gutierrez APRN.MEDICAL OFFICE COORDINATOR Work Phone: OB/Gynecology Start: 09-16-2024 End: 09-16-2024 Telephone encounter Ariel Gutierrez APRN.MEDICAL OFFICE COORDINATOR Work Phone: OB/Gynecology Comment on above: Orders Start: 09-15-2024 End: 09-15-2024 Patient encounter procedure Ariel Gutierrez APRN.MEDICAL OFFICE COORDINATOR Work Phone: OB/Gynecology Comment on above: Encounter for other general counseling or advice on contraception (Primary Dx); Missed menses Start: 09-15-2024 End: 09-15-2024 ambulatory PATRICK ARREOLA Facility:[facility] Start: 09-10-2024 End: 09-13-2024 ambulatory Ruben Tellez MD Work Phone: Neurology Comment on above: Seizure medication Start: 08-23-2024 End: 08-23-2024 Refill Patrick Arreola APRN.MEDICAL OFFICE COORDINATOR Work Phone: Neurology Epilepsy Comment on above: Refill Request Start: 08-12-2024 End: 08-16-2024 ambulatory Ruben Tellez MD Work Phone: Neurology Comment on above: Fycomoa Start: 08-03-2024 End: 08-04-2024 ambulatory Ruben Tellez MD Work Phone: Neurology Comment on above: Vimpat Refill Request Start: 08-03-2024 End: 08-04-2024 Refill Ruben Tellez MD Work Phone: Neurology Epilepsy Comment on above: Refill Request Start: 08-01-2024 End: 08-02-2024 ambulatory Ruben Tellez MD Work Phone: Neurology Comment on above: Seizures Refill Request Start: 07-20-2024 End: 07-21-2024 ambulatory Ruben Tellez MD Work Phone: Neurology Comment on above: Onfi Refill Request Start: 07-20-2024 End: 07-20-2024 Refill Virgilio Ramsey PA-C Work Phone: Neurology Epilepsy Comment on above: Refill Request Start: 06-11-2024 End: 06-11-2024 Telephone encounter Ariel Gutierrez APRN.MEDICAL OFFICE COORDINATOR Work Phone: OB/Gynecology Start: 05-19-2024 End: 05-19-2024 Telephone encounter Ruben Tellez MD Work Phone: Neurology Comment on above: Orders (Stratus) Medication Question Start: 05-18-2024 End: 05-18-2024 Emergency department patient visit MONA JEFF MOLINA [facility] Start: 05-17-2024 End: 05-17-2024 ambulatory Ruben Tellez MD Work Phone: Neurology Comment on above: Different seizure Start: 05-13-2024 End: 05-13-2024 Telephone encounter Ariel Gutierrez APRN.MEDICAL OFFICE COORDINATOR Work Phone: OB/Gynecology Comment on above: Orders Start: 05-13-2024 End: 05-13-2024 ambulatory ARIEL GUTIERREZ Facility:[facility] Start: 05-13-2024 End: 05-13-2024 Nursing evaluation of patient and report Nurse Stone Processing Machine Operator [facility] Work Phone: OB/Gynecology Comment on above: Depo-Provera contrac eptive status (Primary Dx); Encounter for management and injection of depo-Provera Start: 05-01-2024 End: 05-03-2024 Refill Ruben Tellez MD Work Phone: Neurology Epilepsy Comment on above: Refill Request Start: 04-28-2024 End: 04-28-2024 Telephone encounter Ariel Gutierrez APRN.CNP Work Phone: OB/Gynecology Comment on above: Medication Problem Start: 04-13-2024 End: 04-20-2024 Telephone encounter Ariel Gutierrez APRN.MEDICAL OFFICE COORDINATOR Work Phone: OB/Gynecology Start: 03-26-2024 End: 03-26-2024 Telephone encounter Maria Eugenia Soria APRN.CNM Work Phone: OB/Gynecology Start: 03-17-2024 End: 03-17-2024 Telephone encounter Alivia Trent MD Work Phone: OB/Gynecology Start: 03-15-2024 ambulatory No Primary Car e Physician Facility:[facility] Start: 03-12-2024 End: 03-12-2024 Telephone encounter Patrick Holloway RN Obstetrics & Gynecology Comment on above: Complex Contraceptio n Start: 03-10-2024 End: 03-10-2024 Telephone encounter Ariel Gutierrez APRN.MEDICAL OFFICE COORDINATOR Work Phone: OB/Gynecology Comment on above: Contraception Start: 03-08-2024 End: 03-08-2024 Telephone encounter Ariel Gutierrez APRN.MEDICAL OFFICE COORDINATOR Work Phone: OB/Gynecology Comment on above: Contraception Start: 03-06-2024 End: 03-10-2024 ambulatory Ruben Tellez MD Work Phone: Neurology Comment on above: Seizures Start: 03-05-2024 End: 03-05-2024 ambulatory Ariel Gutierrez APRN.MEDICAL OFFICE COORDINATOR Work Phone: OB/Gynecology Comment on above: Encounter for other general counseling or advice on contraception (Primary Dx); Nexplanon insertion Start: 03-05-2024 End: 03-05-2024 Telemedicine consultation with patient Ariel Gutierrez APRN.MEDICAL OFFICE COORDINATOR Work Phone: OB/Gynecology Start: 03-05-2024 End: 03-05-2024 Patient encounter procedure Denise Nichols MD Work Phone: Gynecology Start: 03-04-2024 End: 03-04-2024 ambulatory Ruben Tellez MD Work Phone: Neurology Comment on above: Vns Start: 02-19-2024 End: 02-19-2024 ambulatory RUBEN TELLEZ Facility:[facility] Start: 02-19-2024 End: 02-19-2024 Patient encounter procedure Ruben Tellez MD Work Phone: Neurology Comment on above: 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, intractable, with status epilepticus (HCC) (Primary Dx); S/P placement of VNS (vagus nerve stimulation) device; Polypharmacy Start: 02-16-2024 End: 02-16-2024 ambulatory RUBEN TELLEZ Facility:[facility] Start: 02-06-2024 End: 02-06-2024 ambulatory Ruben Tellez MD Work Phone: Neurology Epilepsy Comment on above: Vns Start: 01-27-2024 End: 01-27-2024 Telephone encounter Ruben Tellez MD Work Phone: Neurology Comment on above: Orders (Stratus) Start: 01-23-2024 End: 01-23-2024 ambulatory RUBEN TELLEZ Facility:[facility] Start: 01-23-2024 End: 01-23-2024 Patient encounter procedure Ruben Tellez MD Work Phone: Neurology Epilepsy Comment on above: 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, intractable, with status epilepticus (HCC) (Primary Dx); S/P placement of VNS (vagus nerve stimulation) device; Polypharmacy Start: 01-22-2024 End: 01-23-2024 ambulatory Ruben Tellez MD Work Phone: Neurology Epilepsy Comment on above: Onfi Start: 01-22-2024 End: 01-23-2024 Nursing evaluation of patient and report Nurse Stone Processing Machine Operator [facility] Work Phone: OB/Gynecology Comment on above: Encounter for manage ment and injection of depo-Provera (Primary Dx) Refill Request Start: 01-14-2024 Telephone encounter Ariel arredondo APRN.MEDICAL OFFICE COORDINATOR Work Phone: OB/Gynecology Comment on above: Patient Update Start: 01-14-2024 End: 01-14-2024 ambulatory ARIEL GUTIERREZ Facility:[facility] Start: 01-14-2024 Encounter for gynecological examination (general) (routine) without abnormal findings ARIEL GUTIERREZ [facility] Start: 01-14-2024 End: 01-14-2024 ambulatory ARIEL GUTIERREZ Facility:[facility] Start: 01-14-2024 End: 01-14-2024 Patient encounter procedure Ariel Gutierrez APRN.MEDICAL OFFICE COORDINATOR Work Phone: OB/Gynecology Comment on above: Encounter for gyneco logical examination (general) (routine) without abnormal findings (Primary Dx); Screening for STD (sexually transmitted disease); Screening for cervical cancer; Encounter for screening for human papillomavirus (HPV); Screen for STD (sexually transmitted disease); Unprotected sexual intercourse Start: 01-14-2024 End: 01-14-2024 Patient encounter status Ariel Gutierrez APRN.MEDICAL OFFICE COORDINATOR Work Phone: [facility] Work Phone: Start: 01-13-2024 Refill Ruben Tellez MD Work Phone: Neurology Epilepsy Comment on above: Refill Request Start: 10-30-2023 Telephone encounter Ruben Tellez MD Work Phone: Neurology Comment on above: Medication Authoriza tion (perampanel (FYCOMPA) 4 mg tablet) Start: 10-29-2023 Refill Ruben Tellez MD Work Phone: Neurology Epilepsy Comment on above: Refill Request Start: 09-29-2023 Telephone encounter Karthikeyan archuleta MD Work Phone: OB/Gynecology Comment on above: Appointment Start: 09-12-2023 Telephone encounter Karthikeyan archuleta MD Work Phone: OB/Gynecology Comment on above: Appointment Start: 08-11-2023 ambulatory Ruben Tellez MD Work Phone: Neurology Epilepsy Comment on above: Stool Start: 08-01-2023 [facility] Comment on above: Vimpat Start: 07-16-2023 End: 07-16-2023 ambulatory RUBEN TELLEZ Facility:[facility] Start: 07-16-2023 End: 07-16-2023 Patient encounter procedure Ruben Tellez MD Work Phone: Neurology Epilepsy Comment on above: 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, intractable, with status epilepticus (HCC) (Primary Dx); Seizure (HCC); Generalized epilepsy (HCC); S/P placement of VNS (vagus nerve stimulation) device Start: 05-02-2023 End: 05-02-2023 Emergency department patient visit [facility] Work Phone: Start: 05-02-2023 End: 05-02-2023 Nursing evaluation of patient and report Nurse Stone Processing Machine Operator [facility] Work Phone: OB/Gynecology Comment on above: Encounter for survei llance of injectable contraceptive (Primary Dx); Encounter for management and injection of depo-Provera Start: 04-04-2023 Telephone encounter Tuan jones Research Coordinator Neurology Comment on above: Research (IRB [id number] ) Start: 03-31-2023 End: 03-31-2023 Patient encounter procedure Minerva Mcdaniel KANWAL.MEDICAL OFFICE COORDINATOR Work Phone: [facility] Comment on above: Late menses (Primary Dx); Acute midline low back pain without sciatica Start: 02-26-2023 Refill Evie Avalos Work Phone: OB/Gynecology Start: 02-11-2023 Refill Ruben Tellez MD Work Phone: Neurology Comment on above: Refill Request Start: 02-04-2023 End: 02-04-2023 ambulatory Karla Mcguire [facility] Work Phone: Neurology Comment on above: Seizure (HCC) (Prima ry Dx) [facility]yanne meds Start: 02-04-2023 End: 02-04-2023 Telemedicine consultation with patient Karla Mcguire [facility] Work Phone: [facility] Start: 01-27-2023 Refill Rubne Tellez MD Work Phone: Neurology Comment on above: Refill Request Start: 01-22-2023 Orders Only Ruben Tellez MD Work Phone: Neurology Comment on above: 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, intractable, with status epilepticus (HCC) (Primary Dx) Start: 01-14-2023 ambulatory Karla Mcguire [facility] Work Phone: Neurology Comment on above: Fycompa Reduction Start: 01-14-2023 E-mail encounter fro m caregiver Karla Mcguire [facility] Work Phone: [facility] Start: 01-13-2023 End: 01-13-2023 ambulatory Karla Mcguire [facility] Work Phone: Neurology Comment on above: 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, intractable, with status epilepticus (HCC) (Primary Dx) Start: 01-13-2023 End: 01-13-2023 Telemedicine consultation with patient Karla Mcguire [facility] Work Phone: [facility] Start: 01-09-2023 ambulatory Ruben Tellez MD Work Phone: Neurology Comment on above: Question regarding C BC Start: 12-12-2022 End: 12-12-2022 Patient encounter procedure Ruben Tellez MD Work Phone: Neurology Comment on above: 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, intractable, with status epilepticus (HCC) (Primary Dx); Seizure (HCC); On antiepileptic therapy; S/P placement of VNS (vagus nerve stimulation) device Start: 12-04-2022 End: 12-04-2022 Nursing evaluation of patient and report Nurse Stone Processing Machine Operator [facility] Work Phone: OB/Gynecology Comment on above: Encounter for survei llance of other contraceptive (Primary Dx) Start: 12-02-2022 End: 12-02-2022 Patient encounter procedure Evie Crane MD Work Phone: OB/Gynecology Comment on above: Encounter for initia l prescription of injectable contraceptive (Primary Dx); control counseling; Class 1 obesity with body mass index (BMI) of 34.0 to 34.9 in adult, unspecified obesity type, unspecified whether serious comorbidity present; History of seizure Start: 10-14-2022 Telephone encounter Ashley Parra RN NOC Comment on above: Follow Up Phone Call (Post Discharge F/U - attempt made. No answer.) Start: 10-11-2022 Telephone encounter Karla abel [facility] Work Phone: Neurology Comment on above: Results; Patient Upd ate Start: 09-29-2022 Telephone encounter Akila Gordillo MD Work Phone: Neurology Comment on above: breakthrough seizure Start: 09-25-2022 Orders Only Miguel Avalos Work Phone: Epilepsy Comment on above: Intractable generali zed idiopathic epilepsy without status epilepticus (HCC) (Primary Dx) Start: 09-20-2022 End: 09-20-2022 ambulatory Karla Mcguire [facility] Work Phone: Neurology Comment on above: Intractable generali zed idiopathic epilepsy without status epilepticus (HCC) (Primary Dx) Start: 09-20-2022 End: 09-20-2022 Telemedicine consultation with patient Karla Mcguire [facility] Work Phone: [facility] Start: 09-20-2022 Telephone encounter Miguel Ángel kunz MD Work Phone: [facility] Comment on above: Appointment (Ultraso und) Start: 09-19-2022 Telephone encounter Miguel Ángel kunz MD Work Phone: [facility] Comment on above: Appointment Start: 09-18-2022 End: 09-18-2022 Patient encounter procedure Caleb Santos MD Work Phone: Obstetrics/Gynecology Comment on above: Encounter for superv ision of normal in third trimester, unspecified (Primary Dx); Seizure disorder during in third trimester (HCC) Start: 09-14-2022 End: 09-15-[address] RENÉE CORBETT MD Facility:[facility] Start: 09-14-2022 End: 09-15-[address] ANDREI TOSCANO DO [facility] Start: 09-14-2022 Telephone encounter Nahomy monroy MD Work Phone: Neurology Comment on above: Patient Question Start: 09-13-2022 Telephone encounter Amirah Upton RN [facility] Comment on above: Appointment Start: 09-12-2022 End: 09-12-2022 Patient encounter procedure Us Rm2 Twisting Machine Operator Ag Mfm Work Phone: [facility] Comment on above: 35 weeks gestation o f (Primary Dx); Seizure disorder during (multiple AEDs; vagal nerve stimulator) Start: 09-09-2022 ambulatory Amirah Upton RN [facility] Start: 09-09-2022 Coordination of care plan Amirah Upton RN [facility] Comment on above: maternal care plan ( Care coordination ) Start: 09-04-2022 End: 09-04-2022 Patient encounter procedure Us Rm3 Twisting Machine Operator Ag [facility] Work Phone: [facility] Comment on above: Obesity affecting pr egnancy in third trimester (Primary Dx); Seizure disorder during in third trimester (HCC) Seizure disorder dur ing (multiple AEDs; vagal nerve stimulator) (Primary Dx) Start: 09-03-2022 ambulatory Annette BHAKTA.MEDICAL OFFICE COORDINATOR Work Phone: Neurology Comment on above: Video visit Pharmacist Regis nelson Start: 09-03-2022 E-mail encounter rashel m caregiver Karla Mcguire [facility] Work Phone: [facility] Start: 09-03-2022 End: 09-03-2022 Patient encounter procedure Layo Peters MD Work Phone: [facility] Comment on above: Seizure disorder dur ing (multiple AEDs; vagal nerve stimulator) Start: 08-31-2022 Telephone encounter Edward her MD Work Phone: [facility] Comment on above: Medication Problem Start: 08-28-2022 ambulatory Annette SWEENEYN.MEDICAL OFFICE COORDINATOR Work Phone: Neurology Comment on above: Med levels Start: 08-28-2022 Telephone encounter Melva Schwarz MD Work Phone: Neurology Comment on above: Results (Lab results ) Start: 08-27-2022 ambulatory Melva hou MD Work Phone: Neurology Comment on above: Klonopin Start: 08-27-2022 End: 08-27-2022 Patient encounter procedure Arianne Briggs MD Work Phone: Obstetrics/Gynecology Comment on above: , supervisi on, high-risk, third trimester (Primary Dx); Seizure disorder during in third trimester (HCC); Abnormal glucose complicating ; Obesity affecting in third trimester; 33 weeks gestation of Refill Request Start: 03-27-2023 ambulatory Melva hou MD Work Phone: Neurology Comment on above: Seizure Start: 08-24-2022 Telephone encounter Zac Moser MD Work Phone: [facility] Comment on above: Medication Problem Start: 08-24-2022 End: 08-24-2022 ambulatory [facility] Work Phone: Start: 08-24-2022 End: 08-24-2022 Patient encounter procedure [facility] Start: 08-24-2022 End: 08-24-2022 Emergency department patient visit [facility] Start: 08-23-2022 End: 08-23-2022 Emergency department patient visit DR LAURENT PANCHAL MD Facility:[facility] Start: 08-23-2022 End: 08-23-2022 Emergency department patient visit DR LAURENT PANCHAL MD [facility] Start: 08-21-2022 End: 08-21-2022 Patient encounter procedure Miguel Ángel Reno MD Work Phone: Maternal Medicine Comment on above: Seizure disorder dur ing (multiple AEDs; vagal nerve stimulator) (Primary Dx); Obesity complicating , third trimester; 32 weeks gestation of Start: 08-13-2022 End: 08-13-2022 ambulatory Karla Mcguire [facility] Work Phone: Neurology Comment on above: Generalized epilepsy (HCC) (Primary Dx) Start: 08-13-2022 End: 08-13-2022 Telemedicine consultation with patient Karla Mcguire [facility] Work Phone: [facility] Start: 07-31-2022 End: 07-31-2022 Patient encounter procedure Maria Eugenia Soria APRN.CNM Work Phone: OB/Gynecology Comment on above: 29 weeks gestation o f (Primary Dx); Supervision of high risk in third trimester; Decreased movements, third trimester, fetus 1 Start: 07-30-2022 Telephone encounter Alivia Trent MD Work Phone: OB/Gynecology Comment on above: Orders Start: 07-25-2022 Telephone encounter Rachel paez APRN.MEDICAL OFFICE COORDINATOR Work Phone: OB/Gynecology Comment on above: Results Start: 07-24-2022 End: 07-24-2022 Patient encounter procedure Alivia Trent MD Work Phone: OB/Gynecology Comment on above: Supervision of high risk in third trimester (Primary Dx); Seizure disorder during (multiple AEDs; vagal nerve stimulator); Obesity complicating , first trimester; 28 weeks gestation of ; Need for vaccination Start: 07-24-2022 ambulatory Alivia Trent MD Work Phone: OB/Gynecology Comment on above: Question regarding U RINE OB DIP B/O Start: 07-23-2022 End: 07-23-2022 ambulatory Karla Mcguire [facility] Work Phone: Neurology Comment on above: Generalized epilepsy (HCC) (Primary Dx) Start: 07-23-2022 End: 07-23-2022 Telemedicine consultation with patient Karla Mcguire [facility] Work Phone: [facility] Start: 07-17-2022 Refill Melva hou MD Work Phone: Neurology Comment on above: Refill Request Start: 07-16-2022 End: 07-16-2022 Patient encounter procedure Sheila Hernandez MD Work Phone: OB/Gynecology Comment on above: Seizure disorder dur ing , antepartum (HCC) (Primary Dx); Obesity complicating , second trimester; 27 weeks gestation of ; High-risk in second trimester Start: 07-11-2022 End: 07-12-2022 ambulatory KEVIN PEDRAZA MD Facility:[facility] Start: 07-11-2022 End: 07-12-2022 Observation KEVIN PEDRAZA MD [facility] Start: 07-10-2022 End: 07-11-[address] RENÉE CORBETT MD Facility:[facility] Start: 07-10-2022 End: 07-11-[address] ANDREI TOSCANO DO [facility] Start: 07-03-2022 End: 07-03-2022 Patient encounter procedure Alivia Trent MD Work Phone: OB/Gynecology Comment on above: Seizure disorder dur ing (multiple AEDs; vagal nerve stimulator) (Primary Dx); Obesity complicating , second trimester; 25 weeks gestation of Start: 06-19-2022 End: 06-19-2022 Patient encounter procedure Reji Lawson MD Work Phone: Maternal Medicine Comment on above: Encounter for follow -up ultrasound of anatomy (Primary Dx); 19 weeks gestation of ; High-risk in second trimester Start: 06-13-2022 End: 06-13-2022 Patient encounter procedure Sheila Hernandez MD Work Phone: OB/Gynecology Comment on above: 22 weeks gestation o f (Primary Dx); High-risk in second trimester Start: 05-28-2022 Refill Melva hou MD Work Phone: Neurology Comment on above: Refill Request Start: 05-21-2022 End: 05-21-2022 Patient encounter procedure Olga Reid MD Work Phone: Maternal Medicine Comment on above: Encounter for anatomic survey (Primary Dx); Seizure disorder during (multiple AEDs; vagal nerve stimulator); Obesity complicating , second trimester; 19 weeks gestation of Start: 05-06-2022 End: 05-06-2022 ambulatory Brook Maradiaga [facility] Work Phone: Genetic Healthcare Comment on above: 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, antepartum, single or unspecified fetus (Primary Dx) Start: 05-06-2022 End: 05-06-2022 Telemedicine consultation with patient Brook Maradiaga [facility] Work Phone: [facility] Start: 04-23-2022 End: 04-23-2022 Patient encounter procedure Sheila Hernandez MD Work Phone: OB/Gynecology Comment on above: 15 weeks gestation o f (Primary Dx); Supervision of other high risk pregnancies, first trimester; Generalized epilepsy, intractable (HCC); Encounter for screening of mother 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, antepartum, single or unspecified fetus (Primary Dx); Family history of carrier of genetic disease; Seizure disorder during (multiple AEDs; vagal nerve stimulator); Vaginal bleeding in , second trimester; care Start: 04-15-2022 End: 04-15-2022 Patient encounter procedure Maria Eugenia Soria APRN.CNM Work Phone: OB/Gynecology Comment on above: 14 weeks gestation o f (Primary Dx); Pelvic pain affecting in second trimester, antepartum; Acute bilateral low back pain without sciatica Start: 04-13-2022 End: 04-13-2022 Emergency department patient visit [facility]Emergency [facility] Start: 04-09-2022 Telephone encounter Karthikeyan archuleta MD Work Phone: OB/Gynecology Comment on above: Future Appointment Start: 04-04-2022 Telephone encounter Alivia Trent MD Work Phone: OB/Gynecology Comment on above: Question (OB Questio n) Start: 04-01-2022 Refill Melva hou MD Work Phone: Neurology Comment on above: Refill Request NIPT Start: 03-29-2022 Refill Melva hou MD Work Phone: Neurology Comment on above: Opened In Error medication concern ( zonegram and keppra) Start: 03-29-2022 Refill Patrick grubbs REGISTERED NURSE FIRST ASSISTANT.MEDICAL OFFICE COORDINATOR Work Phone: Neurology Comment on above: Med Change Request Start: 03-27-2022 ambulatory Annette Wilson PRN.MEDICAL OFFICE COORDINATOR Work Phone: Neurology Comment on above: Question regarding L EVETIRACETAM Start: 03-26-2022 End: 03-26-2022 Patient encounter procedure Karthikeyan Mcdaniel MD Work Phone: OB/Gynecology Comment on above: Generalized epilepsy , intractable (HCC) (Primary Dx); Supervision of high risk , antepartum; 11 weeks gestation of Seizure disorder dur ing , antepartum (HCC) (Primary Dx); Generalized epilepsy, intractable (HCC); Supervision of high risk , antepartum; Obesity complicating , first trimester Start: 03-25-2022 Telephone encounter Alivia Trent MD Work Phone: OB/Gynecology Comment on above: OB- Nausea Start: 03-22-2022 Telephone encounter Maria Eugenia santos REGISTERED NURSE FIRST ASSISTANT.CNM Work Phone: OB/Gynecology Comment on above: Results Start: 03-21-2022 Telephone encounter Rachel Earl paez REGISTERED NURSE FIRST ASSISTANT.MEDICAL OFFICE COORDINATOR Work Phone: OB/Gynecology Comment on above: Results Start: 03-20-2022 ambulatory Maria Eugenia bland REGISTERED NURSE FIRST ASSISTANT.CNM Work Phone: OB/Gynecology Comment on above: Question regarding U RINE CULTURE LAB USE ON Start: 03-19-2022 End: 03-19-2022 Patient encounter procedure Maria Eugenia Soria REGISTERED NURSE FIRST ASSISTANT.CNM Work Phone: OB/Gynecology Comment on above: Pelvic pressure in p regnancy (Primary Dx) Start: 03-12-2022 Telephone encounter Alivia Trent MD Work Phone: OB/Gynecology Comment on above: consult order Start: 03-04-2022 Refill Alivia Trent MD Work Phone: OB/Gynecology Comment on above: Med Change Request; Refill Request Start: 03-04-2022 Telephone encounter Alivia Trent MD Work Phone: OB/Gynecology Comment on above: Results Start: 03-01-2022 Patient requested procedure Patricia Terry RN Obstetrics/Gynecology Start: 03-01-2022 Telephone encounter Patricia Terry RN Obstetrics/Gynecology Comment on above: 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[employer]) Start: 02-28-2022 End: 02-28-2022 Patient encounter procedure Alivia Trent MD Work Phone: OB/Gynecology Comment on above: , supervisi on, high-risk, first trimester (Primary Dx); Obesity in ; Generalized epilepsy, intractable (HCC) Start: 02-28-2022 End: 08-27-2022 Patient requested procedure Alivia Trent MD Work Phone: [facility] Work Phone: Start: 02-21-2022 End: 02-21-2022 Patient encounter procedure Evie Crane MD Work Phone: OB/Gynecology Comment on above: Early stage of pregn meghan (Primary Dx) Start: 02-15-2022 Refill Melva hou MD Work Phone: Neurology Comment on above: Refill Request Start: 02-12-2022 End: 02-12-2022 ambulatory Annette Crowder REGISTERED NURSE FIRST ASSISTANT.MEDICAL OFFICE COORDINATOR Work Phone: Neurology Comment on above: Encounter for pregna ncy test, result positive (Primary Dx); Intractable generalized epilepsy (HCC); First trimester ; Generalized epilepsy (HCC) Start: 02-12-2022 End: 02-12-2022 Telemedicine consultation with patient Annette Crowder APRN.MEDICAL OFFICE COORDINATOR Work Phone: [facility] Start: 02-07-2022 End: 02-07-2022 Patient encounter procedure Sheila Hernandez MD Work Phone: OB/Gynecology Comment on above: with uncer tain dates in first trimester (Primary Dx); S/P placement of VNS (vagus nerve stimulation) device; Generalized epilepsy, intractable (HCC) Start: 02-06-2022 Telephone encounter Evie garcia MD Work Phone: OB/Gynecology Comment on above: Patient Question Start: 02-05-2022 End: 02-05-2022 Patient encounter procedure Sonido Figueroa REGISTERED NURSE FIRST ASSISTANT.MEDICAL OFFICE COORDINATOR Work Phone: [facility] Comment on above: Missed period (Prima ry Dx); Positive urine test Start: 01-11-2022 Telephone encounter Rachel [facility] correction REGISTERED NURSE FIRST ASSISTANT.MEDICAL OFFICE COORDINATOR Work Phone: OB/Gynecology Comment on above: Orders Start: 01-09-2022 End: 01-09-2022 Patient encounter procedure Rachel Banks REGISTERED NURSE FIRST ASSISTANT.MEDICAL OFFICE COORDINATOR Work Phone: OB/Gynecology Comment on above: Nexplanon removal (P rimary Dx) Start: 01-08-2022 Telephone encounter Rachel [facility] philippe REGISTERED NURSE FIRST ASSISTANT.MEDICAL OFFICE COORDINATOR Work Phone: OB/Gynecology Comment on above: Orders Start: 12-31-2021 Refill Melva hou MD Work Phone: Neurology Comment on above: Refill Request Start: 12-19-2021 Refill Melva hou MD Work Phone: Neurology Comment on above: Refill Request Start: 11-23-2021 Telephone encounter Melva Schwarz MD Work Phone: Neurology Comment on above: Medication Problem ( ASMs) Start: 11-16-2021 Telephone encounter Karthikeyan archuleta MD Work Phone: OB/Gynecology Comment on above: Patient Update Start: 11-03-2021 End: 11-03-2021 Emergency department patient visit DR SAMSON GODDARD DO Facility:[facility] Start: 2021 End: 11-03-2021 Emergency department patient visit DR SAMSON GODDARD DO [facility] Start: 2021 Telephone encounter Karrie vega PA-C Work Phone: [facility] Comment on above: Seizures Start: 10-23-2021 Refill Esme Valera PA-C Work Phone: Neurology Comment on above: Refill Request Start: 10-17-2021 End: 10-17-2021 Emergency department patient visit [facility] Start: 09-19-2021 Refill Melva hou MD Work Phone: Neurology Comment on above: Refill Request Start: 09-17-2021 Telephone encounter Karthikeyan archuleta MD Work Phone: OB/Gynecology Comment on above: Patient Question Start: 08-28-2021 End: 08-28-2021 Emergency department patient visit [facility] Start: 08-25-2021 Telephone encounter Ava Seguramushtaq Bowling REGISTERED NURSE FIRST ASSISTANT.MEDICAL OFFICE COORDINATOR Work Phone: [facility] Comment on above: Results Start: 08-23-2021 Refill Patrick grubbs REGISTERED NURSE FIRST ASSISTANT.MEDICAL OFFICE COORDINATOR Work Phone: Neurology Comment on above: Refill Request Start: 08-22-2021 End: 08-22-2021 Patient encounter procedure Machelle Americo Samson PA-C Work Phone: [facility] Comment on above: Sore throat (Primary Dx); Viral URI Procedures Date Procedure Procedure Detail Performing Clinician Start: 11-26-2024 UA DIP,URINE HCG (POC) Rachel Banks REGISTERED NURSE FIRST ASSISTANT.MEDICAL OFFICE COORDINATOR Work Phone: Start: 05-13-2024 Urine test visual color cmprsn meths Sheila Hernandez MD Work Phone: Start: 05-13-2024 UA DIP,URINE HCG (POC) [facility] Provider Start: 03-05-2024 UA DIP,URINE HCG (POC) Ariel Gutierrez APRN.MEDICAL OFFICE COORDINATOR Work Phone: Start: 01-22-2024 UA DIP,URINE HCG (POC) [facility] Provider Start: 05-02-2023 Diagnostic radiograp hy of abdomen Start: 05-02-2023 Urine test visual color cmprsn meths Tracee Shaw REGISTERED NURSE FIRST ASSISTANT.CN Work Phone: Start: 03-31-2023 End: 03-31-2023 Urnls dip stick/tablet rgnt auto w/o microscopy Minerva Mcdaniel REGISTERED NURSE FIRST ASSISTANT.MEDICAL OFFICE COORDINATOR Work Phone: Start: 09-18-2022 URINE OB DIP B/O Caleb Santos MD Work Phone: Start: 09-12-2022 biophysical pr ofile non-stress testing Carmella Oilvier DO Work Phone: Start: 09-04-2022 biophysical pr ofile non-stress testing Luther Hannon DO Work Phone: Start: 08-27-2022 URINE OB DIP B/O Arianne Briggs MD Work Phone: Start: 08-21-2022 Us preg uterus after 1st trimest 06/02 gestation Alivia Trent MD Work Phone: Start: 07-31-2022 URINE OB DIP B/O Charles Soria REGISTERED NURSE FIRST ASSISTANT.CNM Work Phone: Start: 07-24-2022 URINE OB DIP B/O Alivia Trent MD Work Phone: Start: 07-16-2022 URINE OB DIP B/O Jennifer Hernandez MD Work Phone: Start: 07-03-2022 URINE OB DIP B/O Alivia Trent MD Work Phone: Start: 06-19-2022 Us preg uterus after 1st trimest 06/02 gestation Sheila Hernandez MD Work Phone: Start: 06-13-2022 URINE OB DIP B/O Jennifer Hernandez MD Work Phone: Start: 05-21-2022 Us preg uterus after 1st trimest 06/02 gestation Sheila Hernandez MD Work Phone: Start: 04-15-2022 URINE OB DIP B/O Charles Soria REGISTERED NURSE FIRST ASSISTANT.CNM Work Phone: Start: 03-26-2022 Us nuchal translucency 1st gestation Alivia Trent MD Work Phone: Start: 02-12-2022 Adult depression scr eening assessment Annette Crowder REGISTERED NURSE FIRST ASSISTANT.MEDICAL OFFICE COORDINATOR Work Phone: Start: 02-05-2022 Urine test visual color cmprsn preetis Sonido Figueroa REGISTERED NURSE FIRST ASSISTANT.SARAH Work Phone: Start: 08-22-2021 STREP A MOLECULAR (POC) [facility] Provider Lumbar puncture DR ANDREI WELCH IN DO Vagal stimulation DR ANDREI TOSCANO DO Plan of Treatment Date Care Activity Detail Author Start: 07-24-2032 Urine microalbumin profile [facility] Start: 01-13-2027 Screening for malign ant neoplasm of cervix Cervical Cancer Screening [facility] Start: 01-31-2025 Influenza vaccination Influenz a Vaccine (Season Ended) [facility] Start: 01-13-2025 End: 01-13-2025 Patient encounter procedure 01/13/2025 2:45 PM EDT Office Visit OB/Gynecology [address] [place] [address] Ariel Gutierrez APRN.MEDICAL OFFICE COORDINATOR [address] [place], [place] [id number] Annual OB/Gynecology Comment on above: Annual Start: 01-13-2025 GC (Gonorrhea) Screening (18-24) GC (Gonorrhea) Screening (18-24) [facility] Start: 01-13-2025 Screening for Chlamy john trachomatis Chlamydia Screening (18-24) [facility] Start: 12-13-2024 End: 12-13-2024 Follow-up encounter 12/13/2024 1:20 PM EDT [facility] Neurology [address] [place] [address] Ruben Tellez MD [address] [place] [address] Follow up Neurology Comment on above: Follow up Start: 11-26-2024 End: 02-25-2025 Choriogonadotropin.beta subunit [Units/volume] in Serum or Plasma [facility] Work Phone: Comment on above: Expected: 11/26/2024 , Expires: 02/25/2025 Start: 11-26-2024 End: 11-26-2024 Patient encounter procedure 11/26/2024 1:00 PM EDT Office Visit OB/Gynecology [address] [place] [address] Rachel Banks, REGISTERED NURSE FIRST ASSISTANT.MEDICAL OFFICE COORDINATOR [address] [place] [address] Discuss amenorrhea - unprotected intercouse. Neg UPT OB/Gynecology Comment on above: Discuss amenorrhea - unprotected intercouse. Neg UPT Start: 11-15-2024 End: 11-15-2024 Follow-up encounter 11/15/2024 2:20 PM EDT [facility] Neurology [address] [facility] [place] [place] [id number] Ruben Tellez MD [address] [place] [address] Follow up Neurology Comment on above: Follow up Start: 11-05-2024 End: 11-05-2024 Patient encounter procedure 11/05/2024 2:30 PM EDT Office Visit OB/Gynecology [address] [place] [address] Rachel Banks, REGISTERED NURSE FIRST ASSISTANT.MEDICAL OFFICE COORDINATOR [address] [place] [address] period concerns-per TE OB/Gynecology Comment on above: period concerns-per TE Start: 10-29-2024 End: 10-29-2024 Patient encounter procedure 10/29/2024 10:40 AM EDT Office Visit Neurology Epilepsy [address] [place] [address] Ruben Tellez MD [address] [place], [place] [id number] Follow up Neurology Epilepsy Comment on above: Follow up Start: 09-28-2024 End: 09-28-2024 Nursing evaluation of patient and report 09/28/2024 3:00 PM EDT Nurse Visit OB/Gynecology [address] [place] [address] Wstr, Nurse Stone Processing Machine Operator [facility] [address] [place] [address] depo - needs UPT OB/Gynecology Comment on above: depo - needs UPT Start: 09-22-2024 End: 09-22-2024 Patient encounter procedure 09/22/2024 11:45 AM EDT Office Visit OB/Gynecology [address] [place] [id number] Ariel Gutierrez APRN.MEDICAL OFFICE COORDINATOR [address] [place] [address] Nexplanon insertion OB/Gynecology Comment on above: Nexplanon insertion Start: 09-15-2024 End: 12-15-2024 Choriogonadotropin.beta subunit [Units/volume] in Serum or Plasma [facility] Work Phone: Comment on above: Expected: 09/15/2024 , Expires: 12/15/2024 Start: 09-01-2024 End: 09-01-2024 Patient encounter procedure 09/01/2024 1:30 PM EDT Office Visit OB/Gynecology [address] [place] [address] Ariel Gutierrez APRN.MEDICAL OFFICE COORDINATOR [address] [place] [address] Depo shot OB/Gynecology Comment on above: Depo shot Start: 08-16-2024 End: 11-15-2024 CBC W Auto Differential panel - Blood COMPLETE BLOOD COUNT AND DIFFERENTIAL Lab Routine Generalized idiopathic epilepsy and epileptic syndromes, intractable, without status epilepticus (HCC) Expected: 08/16/2024, Expires: 11/15/2024 [facility] Comment on above: Expected: 08/16/2024 , Expires: 11/15/2024 Start: 08-16-2024 End: 11-15-2024 CLOBAZAM CLOBAZAM Lab Routine Generalized idiopathic epilepsy and epileptic syndromes, intractable, without status epilepticus (HCC) Expected: 08/16/2024, Expires: 11/15/2024 [facility] Comment on above: Expected: 08/16/2024 , Expires: 11/15/2024 Start: 08-16-2024 End: 11-15-2024 Comprehensive metabolic 2000 panel - Serum or Plasma COMPREHENSIVE METABOLIC PANEL Lab Routine Generalized idiopathic epilepsy and epileptic syndromes, intractable, without status epilepticus (HCC) Expected: 08/16/2024, Expires: 11/15/2024 [facility] Comment on above: Expected: 08/16/2024 , Expires: 11/15/2024 Start: 08-16-2024 End: 11-15-2024 Ethosuximide [Mass/volume] in Serum or Plasma ETHOSUXIMID/ZARONTIN Lab Routine Generalized idiopathic epilepsy and epileptic syndromes, intractable, without status epilepticus (HCC) Expected: 08/16/2024, Expires: 11/15/2024 [facility] Comment on above: Expected: 08/16/2024 , Expires: 11/15/2024 Start: 08-16-2024 End: 11-15-2024 LACOSAMIDE LACOSAMIDE Lab Routine Generalized idiopathic epilepsy and epileptic syndromes, intractable, without status epilepticus (HCC) Expected: 08/16/2024, Expires: 11/15/2024 [facility] Comment on above: Expected: 08/16/2024 , Expires: 11/15/2024 Start: 08-16-2024 End: 11-15-2024 levETIRAcetam [Mass/volume] in Serum or Plasma LEVETIRACETAM Lab Routine Generalized idiopathic epilepsy and epileptic syndromes, intractable, without status epilepticus (HCC) Expected: 08/16/2024, Expires: 11/15/2024 [facility] Comment on above: Expected: 08/16/2024 , Expires: 11/15/2024 Start: 08-16-2024 End: 11-15-2024 Perampanel [Mass/volume] - Serum or Plasma PERAMPANEL Lab Routine Generalized idiopathic epilepsy and epileptic syndromes, intractable, without status epilepticus (HCC) Expected: 08/16/2024, Expires: 11/15/2024 [facility] Work Phone: Comment on above: Expected: 08/16/2024 , Expires: 11/15/2024 Start: 08-16-2024 End: 11-15-2024 Zonisamide [Mass/volume] in Serum or Plasma ZONISAMIDE Lab Routine Generalized idiopathic epilepsy and epileptic syndromes, intractable, without status epilepticus (HCC) Expected: 08/16/2024, Expires: 11/15/2024 [facility] Comment on above: Expected: 08/16/2024 , Expires: 11/15/2024 Start: 08-09-2024 End: 08-09-2024 Patient encounter procedure 08/09/2024 11:10 AM EDT Office Visit OB/Gynecology [address] [place] [address] Miranda Chawla MD [address] [place] [address] STD check OB/Gynecology Comment on above: STD check Start: 08-05-2024 End: 08-05-2024 Nursing evaluation of patient and report 08/05/2024 4:00 PM EST Nurse Visit OB/Gynecology [address] [place] [address] Wstr, Nurse Stone Processing Machine Operator [facility] [address] [place] [address] Depo OB/Gynecology Comment on above: Depo Start: 06-17-2024 End: 06-17-2024 Patient encounter procedure 06/17/2024 10:45 AM EST Office Visit OB/Gynecology [address] [place] [address] Ariel Gutierrez APRN.MEDICAL OFFICE COORDINATOR [address] [place] [address] Vaginal bump/STD check OB/Gynecology Comment on above: Vaginal bump/STD dafne ck Start: 06-02-2024 Medicare Annual Wellness Visit Medicare Annual Wellness Visit [facility] Start: 05-06-2024 End: 05-06-2024 Patient encounter procedure 05/06/2024 10:00 AM EST Office Visit Neurology Epilepsy [address] [facility] [address] [place] [address] Ruben Tellez MD [address] [place] [address] 3 month follow-up Neurology Epilepsy Comment on above: 3 month follow-up Start: 05-05-2024 End: 05-05-2024 Nursing evaluation of patient and report OB/Gynecology Comment on above: Depo Depo - needs UPT Start: 04-15-2024 End: 04-15-2024 Nursing evaluation of patient and report 04/15/2024 11:00 AM EST Nurse Visit OB/Gynecology [address] [place] [address] Wstr, Nurse Stone Processing Machine Operator [facility] [address] [place] [address] Depo, OB/Gynecology Comment on above: Depo, Start: 03-27-2024 End: 03-27-2024 Patient encounter procedure 03/27/2024 8:00 AM EDT Office Visit Neurology [address] [id number] At home EEG, DO NOT Cancel, Confirm, Reschedule or Provide an estimate, Transfer to [facility] Neurology Comment on above: At home EEG, DO NOT Cancel, Confirm, Reschedule or Provide an estimate, Transfer to [facility] Start: 03-05-2024 End: 03-05-2024 ambulatory 03/05/2024 4:30 PM EDT [facility] OB/Gynecology [address] [place] [address] Ariel Gutierrez APRN.MEDICAL OFFICE COORDINATOR [address] [place] [address] Discuss changing depo to Nexplanon OB/Gynecology Comment on above: Discuss changing dep o to Nexplanon Start: 02-01-2024 Covid-19 Vaccine ( season) Covid-19 Vaccine () [facility] Start: 02-01-2024 Covid-19 Vaccine ( season) Covid-19 Vaccine () [facility] Start: 02-01-2024 Influenza vaccination [facility] Start: 01-23-2024 End: 04-23-2024 CLOBAZAM CLOBAZAM Lab Routine Expected: 01/23/2024, Expires: 04/23/2024 [facility] Comment on above: Expected: 01/23/2024 , Expires: 04/23/2024 Start: 01-23-2024 End: 04-23-2024 ETHOSUXIMID/ZARONTIN ETHOSUXIMID/ZARONTIN Lab Routine Expected: 01/23/2024, Expires: 04/23/2024 [facility] Comment on above: Expected: 01/23/2024 , Expires: 04/23/2024 Start: 01-23-2024 End: 04-23-2024 LACOSAMIDE LACOSAMIDE Lab Routine Expected: 01/23/2024, Expires: 04/23/2024 [facility] Comment on above: Expected: 01/23/2024 , Expires: 04/23/2024 Start: 01-23-2024 End: 04-23-2024 levETIRAcetam [Mass/volume] in Serum or Plasma LEVETIRACETAM Lab Routine Expected: 01/23/2024, Expires: 04/23/2024 [facility] Comment on above: Expected: 01/23/2024 , Expires: 04/23/2024 Start: 01-23-2024 End: 04-23-2024 Zonisamide [Mass/volume] in Serum or Plasma ZONISAMIDE Lab Routine Expected: 01/23/2024, Expires: 04/23/2024 [facility] Comment on above: Expected: 01/23/2024 , Expires: 04/23/2024 Start: 01-23-2024 End: 01-23-2024 Patient encounter procedure 01/23/2024 9:20 AM EDT Office Visit Neurology Epilepsy [address] [place] [address] Ruben Tellze MD [address] [place] [address] Follow up and medication check up Neurology Epilepsy Comment on above: Follow up and medica tion check up Start: 01-19-2024 End: 01-19-2024 Nursing evaluation of patient and report OB/Gynecology Comment on above: Depo Depo, see phone note about Depo and Onfi Start: 01-14-2024 End: 04-14-2024 Choriogonadotropin.beta subunit [Units/volume] in Serum or Plasma [facility] Comment on above: Expected: 01/14/2024 , Expires: 04/14/2024 Start: 01-14-2024 End: 04-14-2024 Hepatitis B virus surface Ag [Presence] in Serum [facility] Comment on above: Expected: 01/14/2024 , Expires: 04/14/2024 Start: 01-14-2024 End: 04-14-2024 HIV 1+2 Ab [Presence] in Serum or Plasma by Immunoassay [facility] Comment on above: Expected: 01/14/2024 , Expires: 04/14/2024 Start: 01-14-2024 End: 04-14-2024 SYPHILIS TOTAL W/REFLEX [facility] Work Phone: Comment on above: Expected: 01/14/2024 , Expires: 04/14/2024 Start: 01-14-2024 End: 01-14-2024 Patient encounter procedure 01/14/2024 10:15 AM EDT Office Visit OB/Gynecology [address] [place] [address] Ariel Gutierrez APRN.MEDICAL OFFICE COORDINATOR [address] [place] [address] Annual - wants to restart Depo OB/Gynecology Comment on above: Annual - wants to re start Depo Start: 10-29-2023 End: 10-29-2023 Patient encounter procedure 10/29/2023 10:20 AM EDT Office Visit Neurology Epilepsy [address] [place], [place] [id number] Ruben Tellez MD [address] [place], [place] [id number] 3 month follow-up Neurology Epilepsy Comment on above: 3 month follow-up Start: 10-08-2023 End: 10-08-2023 Nursing evaluation of patient and report 10/08/2023 4:00 PM EDT Nurse Visit OB/Gynecology [address] [place] [place] [address] Wstr, Nurse Stone Processing Machine Operator [facility] [address] [place] [address] Depo OB/Gynecology Comment on above: Depo Start: 10-02-2023 End: 10-02-2023 Patient encounter procedure 10/02/2023 9:15 AM EDT Office Visit OB/Gynecology [address] [place] [place] [address] Ariel Gutierrez APRN.MEDICAL OFFICE COORDINATOR [address] [place] [address] std check OB/Gynecology Comment on above: std check Start: 06-02-2023 Behavioral Health Screening Behavioral Health Screening [facility] Start: 06-02-2023 Depression Assessment Depression Ass essment [facility] Start: 05-02-2023 [facility] Start: 02-28-2023 CHLAMYDIA SCREENING (18-24) CHLAMYDIA SCREENING (18-24) [facility] Start: 02-28-2023 GC (GONORRHEA) SCREENING (18) GC (GONORRHEA) SCREENING (18-) [facility] Start: 02-28-2023 Screening for Chlamy john trachomatis Chlamydia Screening () [facility] Start: 02-12-2023 Adult depression screening assessment DEPRESSION SCREENING [facility] Start: 01-31-2023 Covid-19 Vaccine ( season) Covid-19 Vaccine ( season) [facility] Start: 01-31-2023 Influenza vaccination [facility] Start: 01-22-2023 End: 03-24-2023 LACOSAMIDE LACOSAMIDE Lab Routine Generalized idiopathic epilepsy and epileptic syndromes, intractable, with status epilepticus (HCC) Expected: 01/22/2023, Expires: 03/24/2023 [facility] Work Phone: Comment on above: Expected: 01/22/2023 , Expires: 03/24/2023 Start: 01-22-2023 End: 03-24-2023 levETIRAcetam [Mass/volume] in Serum or Plasma LEVETIRACETAM Lab Routine Generalized idiopathic epilepsy and epileptic syndromes, intractable, with status epilepticus (HCC) Expected: 01/22/2023, Expires: 03/24/2023 [facility] Work Phone: Comment on above: Expected: 01/22/2023 , Expires: 03/24/2023 Start: 01-22-2023 End: 03-24-2023 Zonisamide [Mass/volume] in Serum or Plasma ZONISAMIDE Lab Routine Generalized idiopathic epilepsy and epileptic syndromes, intractable, with status epilepticus (HCC) Expected: 01/22/2023, Expires: 03/24/2023 [facility] Work Phone: Comment on above: Expected: 01/22/2023 , Expires: 03/24/2023 Start: 12-12-2022 End: 02-11-2023 Ammonia [Moles/volume] in Plasma AMMONIA BLD Lab Routine On antiepileptic therapy Expected: 12/12/2022, Expires: 02/11/2023 [facility] Work Phone: Comment on above: Expected: 12/12/2022 , Expires: 02/11/2023 Start: 12-12-2022 End: 02-11-2023 CBC panel - Blood by Automated count CBC Lab Routine On antiepileptic therapy Expected: 12/12/2022, Expires: 02/11/2023 [facility] Work Phone: Comment on above: Expected: 12/12/2022 , Expires: 02/11/2023 Start: 12-12-2022 End: 02-11-2023 Comprehensive metabolic 2000 panel - Serum or Plasma COMP METABOLIC PANEL Lab Routine On antiepileptic therapy Expected: 12/12/2022, Expires: 02/11/2023 [facility] Work Phone: Comment on above: Expected: 12/12/2022 , Expires: 02/11/2023 Start: 2022 PAP TESTING PAP TESTING [facility] Start: 2022 Screening for malign ant neoplasm of cervix [facility] Start: 10-09-2022 End: 12-09-2022 CLOBAZAM CLOBAZAM Lab Routine 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) Expected: 10/09/2022 (Approximate), Expires: 12/09/2022 [facility] Work Phone: Comment on above: Expected: 10/09/2022 (Approximate), Expires: 12/09/2022 Start: 10-09-2022 End: 12-09-2022 LACOSAMIDE LACOSAMIDE Lab Routine 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) Expected: 10/09/2022 (Approximate), Expires: 12/09/2022 [facility] Work Phone: Comment on above: Expected: 10/09/2022 (Approximate), Expires: 12/09/2022 Start: 10-09-2022 End: 12-09-2022 levETIRAcetam [Mass/volume] in Serum or Plasma LEVETIRACETAM Lab Routine 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) Expected: 10/09/2022 (Approximate), Expires: 12/09/2022 [facility] Work Phone: Comment on above: Expected: 10/09/2022 (Approximate), Expires: 12/09/2022 Start: 10-09-2022 End: 12-09-2022 Zonisamide [Mass/volume] in Serum or Plasma ZONISAMIDE Lab Routine 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) Expected: 10/09/2022 (Approximate), Expires: 12/09/2022 [facility] Work Phone: Comment on above: Expected: 10/09/2022 (Approximate), Expires: 12/09/2022 Start: 09-23-2022 INDUCTION L&D INDUCTION L&D Procedures Routine Seizure disorder during in third trimester (HCC) Expected: 09/23/2022 [facility] Work Phone: Comment on above: Expected: 09/23/2022 Start: 09-14-2022 End: 11-14-2022 levETIRAcetam [Mass/volume] in Serum or Plasma LEVETIRACETAM Lab Routine On antiepileptic therapy 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) Expected: 09/14/2022, Expires: 11/14/2022 [facility] Work Phone: Comment on above: Expected: 09/14/2022 , Expires: 11/14/2022 Start: 09-03-2022 End: 09-04-2023 OBSTETRIC ULTRASOUND WHI OBSTETRIC ULTRASOUND I Anc Imaging Routine Seizure disorder during (multiple AEDs; vagal nerve stimulator) Expected: 09/03/2022, Expires: 09/04/2023 [facility] Work Phone: Comment on above: Expected: 09/03/2022 , Expires: 09/04/2023 Start: 08-31-2022 End: 10-31-2022 levETIRAcetam [Mass/volume] in Serum or Plasma LEVETIRACETAM Lab Routine Seizure disorder (HCC) Expected: 08/31/2022, Expires: 10/31/2022 [facility] Work Phone: Comment on above: Expected: 08/31/2022 , Expires: 10/31/2022 Start: 08-24-2022 Nonstress test [facility] Start: 08-24-2022 Obstetric monitoring [facility] Start: 08-24-2022 Vital signs measurements [facility] Start: 08-24-2022 [facility] Start: 08-24-2022 Seizure precautions [facility] Start: 07-30-2022 End: 09-29-2022 GEST GLUC VANESSA, 3-HR, 100 GM, FASTING GEST GLUC VANESSA, 3-HR, 100 GM, FASTING Lab Routine Abnormal glucose complicating Expected: 07/30/2022, Expires: 09/29/2022 [facility] Work Phone: Comment on above: Expected: 07/30/2022 , Expires: 09/29/2022 Start: 07-25-2022 End: 09-24-2022 CBC W Auto Differential panel - Blood CBC + DIFF Lab Routine Anemia affecting in third trimester Expected: 07/25/2022, Expires: 09/24/2022 [facility] Work Phone: Comment on above: Expected: 07/25/2022 , Expires: 09/24/2022 Start: 07-25-2022 End: 09-24-2022 GEST GLUC VANESSA, 3-HR, 100 GM, FASTING GEST GLUC VANESSA, 3-HR, 100 GM, FASTING Lab Routine Abnormal glucose complicating Expected: 07/25/2022, Expires: 09/24/2022 [facility] Work Phone: Comment on above: Expected: 07/25/2022 , Expires: 09/24/2022 Start: 07-24-2022 End: 07-24-2023 OBSTETRIC ULTRASOUND WHI OBSTETRIC ULTRASOUND WHI Anc Imaging Routine 28 weeks gestation of Expected: 07/24/2022, Expires: 07/24/2023 [facility] Work Phone: Comment on above: Expected: 07/24/2022 , Expires: 07/24/2023 Start: 06-13-2022 End: 08-13-2022 CBC W Auto Differential panel - Blood CBC + DIFF Lab Routine 22 weeks gestation of High-risk in second trimester Expected: 06/13/2022, Expires: 08/13/2022 [facility] Work Phone: Comment on above: Expected: 06/13/2022 , Expires: 08/13/2022 Start: 06-13-2022 End: 08-13-2022 GEST GLUC SCREEN, 1-HR, 50 GM, NON-FASTING GEST GLUC SCREEN, 1-HR, 50 GM, NON-FASTING Lab Routine 22 weeks gestation of High-risk in second trimester Expected: 06/13/2022, Expires: 08/13/2022 [facility] Work Phone: Comment on above: Expected: 06/13/2022 , Expires: 08/13/2022 Start: 06-13-2022 End: 08-13-2022 SYPHILIS TOTAL W/REFLEX SYPHILIS TOTAL W/REFLEX Lab Routine 22 weeks gestation of High-risk in second trimester Expected: 06/13/2022, Expires: 08/13/2022 [facility] Work Phone: Comment on above: Expected: 06/13/2022 , Expires: 08/13/2022 Start: 06-02-2022 DEPRESSION ASSESSMENT DEPRESSION ASS ESSMENT [facility] Start: 04-23-2022 End: 04-23-2023 OBSTETRIC ULTRASOUND WHI OBSTETRIC ULTRASOUND WHI Anc Imaging Routine Supervision of other high risk pregnancies, first trimester Generalized epilepsy, intractable (HCC) Encounter for screening of mother Expected: 04/23/2022, Expires: 04/23/2023 [facility] Work Phone: Comment on above: Expected: 04/23/2022 , Expires: 04/23/2023 Start: 03-26-2022 End: 05-26-2022 Chromosome 21 trisomy [Presence] in Blood or Tissue by Cytogenetics [facility] Work Phone: Comment on above: Expected: 03/26/2022 , Expires: 05/26/2022 Start: 03-06-2022 CHLAMYDIA SCREENING (18-24) CHLAMYDIA SCREENING (18-24) [facility] Start: 03-06-2022 GC (GONORRHEA) SCREENING (18-24) GC (GONORRHEA) SCREENING (18-24) [facility] Start: 02-28-2022 End: 04-30-2022 Hepatitis B virus surface Ab [Presence] in Serum by Immunoassay [facility] Work Phone: Comment on above: Expected: 02/28/2022 , Expires: 04/30/2022 Start: 02-28-2022 End: 04-30-2022 Hepatitis C virus Ab [Presence] in Serum [facility] Work Phone: Comment on above: Expected: 02/28/2022 , Expires: 04/30/2022 Start: 02-28-2022 End: 04-30-2022 HIV 1+2 Ab [Presence] in Serum or Plasma by Immunoassay [facility] Work Phone: Comment on above: Expected: 02/28/2022 , Expires: 04/30/2022 Start: 02-28-2022 End: 04-30-2022 RUBELLA IGG AB [facility] Work Phone: Comment on above: Expected: 02/28/2022 , Expires: 04/30/2022 Start: 02-28-2022 End: 04-30-2022 SYPHILIS TOTAL W/REFLEX [facility] Work Phone: Comment on above: Expected: 02/28/2022 , Expires: 04/30/2022 Start: 02-28-2022 End: 04-30-2022 TYPE + SCREEN [facility] Work Phone: Comment on above: Expected: 02/28/2022 , Expires: 04/30/2022 Start: 02-06-2022 End: 04-08-2022 Choriogonadotropin.beta subunit [Units/volume] in Serum or Plasma HCG QUANTITATIVE Lab Routine Missed menses Positive urine test Expected: 02/06/2022, Expires: 04/08/2022 [facility] Work Phone: Comment on above: Expected: 02/06/2022 , Expires: 04/08/2022 Start: 01-31-2022 Influenza vaccination C [facility] Start: 11-16-2021 End: 01-16-2022 CBC W Auto Differential panel - Blood CBC + DIFF Lab Routine Irregular bleeding Expected: 11/16/2021, Expires: 01/16/2022 [facility] Work Phone: Comment on above: Expected: 11/16/2021 , Expires: 01/16/2022 Start: 08-22-2021 End: 09-05-2021 Influenza virus A and B RNA and SARS-CoV-2 (COVID-19) N gene panel - Respiratory specimen by EKATERINA with probe detection COVID WITH FLUA+B, ROUTINE Microbiology Routine Viral URI Expected: 08/22/2021, Expires: 09/05/2021 [facility] Work Phone: Comment on above: Expected: 08/22/2021 , Expires: 09/05/2021 Start: 06-02-2021 DEPRESSION ASSESSMENT DEPRESSION ASS ESSMENT [facility] Start: 01-31-2021 Influenza vaccination INFLUENZA (#1) [facility] Start: 11-03-2019 Anxiety Screening Anxiety Screening [facility] Start: 11-03-2019 Depression Screening Depression Scre ening [facility] Start: 11-03-2019 HEPATITIS C SCREENING HEPATITIS C SC REENING [facility] Start: 11-03-2019 HIV SCREENING HIV SCREENING [facility] Start: 2017 Meningococcal B Vacc ine (1 of 2 - Standard) Meningococcal B Vaccine (1 of 2 - Standard) [facility] Start: 2017 Meningococcal B Vaccine: Consider Based On Risk (1 of 2 - Patient Seeks Protection) Meningococcal B Vaccine: Consider Based On Risk (1 of 2 - Patient Seeks Protection) [facility] Start: 2017 MENINGOCOCCAL B: Consider based on risk (1 of 2 - Patient Seeks Protection) MENINGOCOCCAL B: Consider based on risk (1 of 2 - Patient Seeks Protection) [facility] Start: 2016 HPV Vaccine (1 - 3-d ose series) HPV Vaccine (1 - 3-dose series) [facility] Start: 11-03-2015 PEDS TO ADULT TRANSITION ANNUAL ASSESSMENT PEDS TO ADULT TRANSITION ANNUAL ASSESSMENT [facility] Start: 2013 Adult depression screening assessment DEPRESSION SCREENING [facility] Start: 2013 PEDS TO ADULT TRANSITION INITIAL DISCUSSION PEDS TO ADULT TRANSITION INITIAL DISCUSSION [facility] Start: 2012 HPV VACCINE (1 - 2-d ose series) HPV VACCINE (1 - 2-dose series) [facility] Start: 2012 Urine microalbumin profile DTAP,TDAP,TD (6 - Tdap) [facility] Start: 11-03-2011 MENINGOCOCCAL B: Consider based on risk (1 of 2 - Risk Bexsero 2-dose series) MENINGOCOCCAL B: Consider based on risk (1 of 2 - Risk Bexsero 2-dose series) [facility] Start: 2010 HPV VACCINE (1 - 2-d ose series) HPV VACCINE (1 - 2-dose series) [facility] Start: 2006 COVID-19 VACCINE (#1) COVID-19 VACCI NE (#1) [facility] Start: 2006 COVID-19 VACCINE (1) COVID-19 VACCIN E (1) [facility] Start: 05-04-2002 COVID-19 VACCINE (#1) COVID-19 VACCI NE (#1) [facility] ALERE STREP A TEST (AG) ALERE ST REP A TEST (AG) Lab Routine Sore throat Ordered: 08/22/2021 [facility] Work Phone: Comment on above: Ordered: 08/22/2021 Bacteria identified in Urine by Culture URINE CULTURE Microbiology Routine , supervision, high-risk, first trimester Obesity in 02/28/2022 4:08 PM EDT [facility] Work Phone: Bacteria identified in Urine by Culture URINE CULTURE Microbiology Routine Pelvic pressure in 03/19/2022 11:26 AM T [facility] Work Phone: Bacteria identified in Urine by Culture URINE CULTURE Microbiology Routine Seizure disorder during , antepartum (HCC) Obesity complicating , second trimester 27 weeks gestation of High-risk in second trimester Ordered: 07/16/2022 [facility] Work Phone: Comment on above: Ordered: 07/16/2022 Bacteria identified in Urine by Culture URINE CULTURE Microbiology Routine 28 weeks gestation of 07/24/2022 2:59 PM EST [facility] Work Phone: Bacteria identified in Urine by Culture URINE CULTURE Microbiology Routine Acute midline low back pain without sciatica 03/31/2023 7:47 PM EDT [facility] Work Phone: BACTERIAL VAGINOSIS NAAT BACTERIAL VAGINOSIS NAAT Lab Routine Vaginal discharge 11/26/2024 1:29 PM EDT [facility] End: 03-02-2023 BIOPHYSICAL PROFILE US WHI BIOPHYSICAL PROFILE [facility] Anc Imaging Routine Seizure disorder during (multiple AEDs; vagal nerve stimulator) 10 Occurrences starting 09/03/2022 until 03/02/2023 [facility] Work Phone: Comment on above: 10 Occurrences start ing 09/03/2022 until 03/02/2023 BRANDY/TRICHOMONAS NAAT BRANDY/TRICHOMONAS NAAT Lab Routine Unprotected sexual intercourse Vaginal discharge 11/26/2024 1:29 PM EDT [facility] Chlamydia trachomatis+Neisseria gonorrhoeae DNA [Presence] in Unspecified specimen by EKATERINA with probe detection GC/CHLAMYDIA DNA DET Lab Routine , supervision, high-risk, first trimester Obesity in 02/28/2022 4:08 PM EDT [facility] Work Phone: Chlamydia trachomatis+Neisseria gonorrhoeae DNA [Presence] in Unspecified specimen by EKATERINA with probe detection GONORRHEA/CHLAMYDIA NAAT Lab Routine Screening for STD (sexually transmitted disease) Encounter for gynecological examination (general) (routine) without abnormal findings Screening for cervical cancer Encounter for screening for human papillomavirus (HPV) Screen for STD (sexually transmitted disease) 01/14/2024 11:15 AM T [facility] Chlamydia trachomatis+Neisseria gonorrhoeae DNA [Presence] in Unspecified specimen by EKATERINA with probe detection GONORRHEA/CHLAMYDIA NAAT Lab Routine Unprotected sexual intercourse 11/26/2024 1:29 PM T [facility] End: 02-12-2023 CLOBAZAM CLOBAZAM Lab Routine Encounter for test, result positive Intractable generalized epilepsy (HCC) Once per month for 9 Occurrences starting 02/12/2022 until 02/12/2023 [facility] Work Phone: Comment on above: Once per month for 9 Occurrences starting 02/12/2022 until 02/12/2023 End: 07-23-2023 CLOBAZAM CLOBAZAM Lab Routine Generalized epilepsy (HCC) Every 3 weeks for 4 Occurrences starting 07/24/2022 until 07/23/2023 [facility] Work Phone: Comment on above: Every 3 weeks for 4 Occurrences starting 07/24/2022 until 07/23/2023 End: 01-22-2025 EPIL AMBULATORY EEG EPIL AMBULATORY EEG NEUROLOGY Routine 1 Occurrences starting 01/23/2024 until 01/22/2025 [facility] Work Phone: Comment on above: 1 Occurrences starti ng 01/23/2024 until 01/22/2025 End: 05-17-2025 EPIL AMBULATORY EEG EPIL AMBULATORY EEG NEUROLOGY Routine Generalized idiopathic epilepsy and epileptic syndromes, intractable, with status epilepticus (HCC) 1 Occurrences starting 05/17/2024 until 05/17/2025 [facility] Work Phone: Comment on above: 1 Occurrences starti ng 05/17/2024 until 05/17/2025 End: 01-22-2025 EPIL EEG ROUTINE EPIL EEG ROUTINE NEUROLOGY Routine 1 Occurrences starting 01/23/2024 until 01/22/2025 [facility] Comment on above: 1 Occurrences starti ng 01/23/2024 until 01/22/2025 End: 05-17-2025 EPIL EEG ROUTINE EPIL EEG ROUTINE NEUROLOGY Routine Generalized idiopathic epilepsy and epileptic syndromes, intractable, with status epilepticus (HCC) 1 Occurrences starting 05/17/2024 until 05/17/2025 [facility] Comment on above: 1 Occurrences starti ng 05/17/2024 until 05/17/2025 End: 02-12-2023 LACOSAMIDE LACOSAMIDE Lab Routine Encounter for test, result positive Intractable generalized epilepsy (HCC) Once per month for 9 Occurrences starting 02/12/2022 until 02/12/2023 [facility] Work Phone: Comment on above: Once per month for 9 Occurrences starting 02/12/2022 until 02/12/2023 End: 07-23-2023 LACOSAMIDE LACOSAMIDE Lab Routine Generalized epilepsy (HCC) Every 3 weeks for 4 Occurrences starting 07/24/2022 until 07/23/2023 [facility] Work Phone: Comment on above: Every 3 weeks for 4 Occurrences starting 07/24/2022 until 07/23/2023 End: 02-12-2023 levETIRAcetam [Mass/volume] in Serum or Plasma LEVETIRACETAM Lab Routine Encounter for test, result positive Intractable generalized epilepsy (HCC) Once per month for 9 Occurrences starting 02/12/2022 until 02/12/2023 [facility] Work Phone: Comment on above: Once per month for 9 Occurrences starting 02/12/2022 until 02/12/2023 End: 07-23-2023 levETIRAcetam [Mass/volume] in Serum or Plasma LEVETIRACETAM Lab Routine Generalized epilepsy (HCC) Every 3 weeks for 4 Occurrences starting 07/24/2022 until 07/23/2023 [facility] Work Phone: Comment on above: Every 3 weeks for 4 Occurrences starting 07/24/2022 until 07/23/2023 Microscopic observat ion [Identifier] in Vaginal fluid by Gram stain BACT/BRANDY VAG GRAM STAIN Microbiology Routine Pelvic pressure in 03/19/2022 11:26 AM EDT [facility] Work Phone: NEXPLANON INSERTION NEXPLANON IN SERTION Procedures Routine Encounter for initial prescription of implantable subdermal contraceptive Ordered: 01/11/2022 [facility] Work Phone: Comment on above: Ordered: 01/11/2022 NEXPLANON INSERTION NEXPLANON IN SERTION Procedures Routine Nexplanon insertion Ordered: 03/05/2024 [facility] Work Phone: Comment on above: Ordered: 03/05/2024 NEXPLANON INSERTION NEXPLANON IN SERTION Procedures Routine Encounter for contraceptive management, unspecified type Nexplanon insertion Ordered: 09/16/2024 [facility] Work Phone: Comment on above: Ordered: 09/16/2024 NEXPLANON REMOVAL NEXPLANON ABRAHAM EKATERINA Procedures Routine Nexplanon removal Ordered: 01/08/2022 [facility] Work Phone: Comment on above: Ordered: 01/08/2022 NUCHAL TRANSLUCENCY WHI NUCHAL T RANSLUCENCY WHI Anc Imaging Routine , supervision, high-risk, first trimester Obesity in Ordered: 02/28/2022 [facility] Work Phone: Comment on above: Ordered: 02/28/2022 OBSTETRIC ULTRASOUND WHI OBSTETRIC ULTRASOUND WHI Anc Imaging Routine with uncertain dates in first trimester Ordered: 02/07/2022 [facility] Work Phone: Comment on above: Ordered: 02/07/2022 OBSTETRIC ULTRASOUND WHI OBSTETRIC ULTRASOUND WHI Anc Imaging Routine , supervision, high-risk, first trimester Obesity in Ordered: 02/28/2022 [facility] Work Phone: Comment on above: Ordered: 02/28/2022 PAP TEST PAP TEST Lab Moira francois Encounter for gynecological examination (general) (routine) without abnormal findings Screening for cervical cancer Encounter for screening for human papillomavirus (HPV) 01/14/2024 11:15 AM EDT [facility] Patient Education [facility] Work Phone: Patient referral [facility] Work Phone: ROUTINE, GR OUP B STREP PCR ROUTINE, GROUP B STREP PCR Microbiology Routine Encounter for supervision of normal in third trimester, unspecified 09/18/2022 4:23 PM EDT [facility] Work Phone: TRICHOMONAS VAGINALI S NAAT TRICHOMONAS VAGINALIS NAAT Lab Routine Screen for STD (sexually transmitted disease) 01/14/2024 11:15 AM T [facility] End: 02-12-2023 Zonisamide [Mass/volume] in Serum or Plasma ZONISAMIDE Lab Routine Encounter for test, result positive Intractable generalized epilepsy (HCC) Once per month for 9 Occurrences starting 02/12/2022 until 02/12/2023 [facility] Work Phone: Comment on above: Once per month for 9 Occurrences starting 02/12/2022 until 02/12/2023 End: 07-23-2023 Zonisamide [Mass/volume] in Serum or Plasma ZONISAMIDE Lab Routine Generalized epilepsy (HCC) Every 3 weeks for 4 Occurrences starting 07/24/2022 until 07/23/2023 [facility] Work Phone: Comment on above: Every 3 weeks for 4 Occurrences starting 07/24/2022 until 07/23/2023 [facility] Immunizations Immunization Date Immunization Notes Care Provider Fa [facility] 07-24-2022 tetanus toxoid, redu venkata diphtheria toxoid, and acellular pertussis vaccine, adsorbed Alivia Trent MD Work Phone: [facility] 01-15-2007 diphtheria, tetanus toxoids and acellular pertussis vaccine Machelle Samson PA-C Work Phone: [facility] Work Phone: 01-15-2007 measles, mumps, rubella, and varicella virus vaccine Machelle Samson PA-C Work Phone: [facility] Work Phone: 01-15-2007 poliovirus vaccine, inactivated Machelle Samson PA-C Work Phone: [facility] Work Phone: 01-10-2006 pneumococcal conjuga te vaccine, 7 valent Machelle Samson PA-C Work Phone: [facility] Work Phone: 01-01-2005 pneumococcal conjuga te vaccine, 7 valent Machelle Samson PA-C Work Phone: [facility] Work Phone: 04-27-2004 influenza virus vaccine, unspecified formulation Machelle Samson PA-C Work Phone: [facility] Work Phone: 06-17-2003 diphtheria, tetanus toxoids and acellular pertussis vaccine Machelle HANNAH-C Work Phone: [facility] Work Phone: 06-17-2003 haemophilus influenz ae type b vaccine, HbOC conjugate Machelle Samson PA-C Work Phone: [facility] Work Phone: 05-06-2003 influenza virus vaccine, unspecified formulation Machelle Samson [employer] Work Phone: [facility] Work Phone: 12-15-2002 measles, mumps and rubella virus vaccine Machelle Samson PA-C Work Phone: [facility] Work Phone: 12-15-2002 varicella virus vaccine Machelle HANNAH- Work Phone: [facility] Work Phone: 08-05-2002 hepatitis B vaccine, pediatric or pediatric/adolescent dosage Machelle HANNAH[employer] Work Phone: [facility] Work Phone: 05-13-2002 diphtheria, tetanus toxoids and acellular pertussis vaccine Machelle HANNAH-C Work Phone: [facility] Work Phone: 05-13-2002 haemophilus influenz ae type b vaccine, HbOC conjugate Machelle HANNAH-C Work Phone: [facility] Work Phone: 05-13-2002 poliovirus vaccine, inactivated Machelle Samson PA[employer] Work Phone: [facility] Work Phone: 03-29-2002 haemophilus influenz ae type b vaccine, HbOC conjugate Machelle Samson PA-C Work Phone: [facility] Work Phone: 03-24-2002 diphtheria, tetanus toxoids and acellular pertussis vaccine Machelle Athy PA-C Work Phone: [facility] Work Phone: 03-24-2002 pneumococcal conjuga te vaccine, 7 valent Machelle Athy PA-C Work Phone: [facility] Work Phone: 03-24-2002 poliovirus vaccine, inactivated Machelle Athy PA-C Work Phone: [facility] Work Phone: 01-14-2002 diphtheria, tetanus toxoids and acellular pertussis vaccine Machelle Athy PA-C Work Phone: [facility] Work Phone: 01-14-2002 haemophilus influenz ae type b vaccine, HbOC conjugate Machelle Athy PA-C Work Phone: [facility] Work Phone: 01-14-2002 pneumococcal conjuga te vaccine, 7 valent Machelle Athy PA-C Work Phone: [facility] Work Phone: 01-14-2002 poliovirus vaccine, inactivated Machelle Athy PA-C Work Phone: [facility] Work Phone: 2001 hepatitis B vaccine, pediatric or pediatric/adolescent dosage Machelle Athy PA-C Work Phone: [facility] Work Phone: 2001 hepatitis B vaccine, pediatric or pediatric/adolescent dosage Machelle Athy PA-C Work Phone: [facility] Work Phone: Payers Date Payer Category Payer Medicare MEDICARE [id number] 2023 Self-pay [id number] 2022 Unknown [id number] 2016 Unknown [id number] 2016 Unknown [id number] 2006 Medicaid [employer] [id number] 2006-[place] [phone] [address] [place] [address] Medicaid [id number] 2006 Medicaid [id number] 2001 Unknown [id number] 2001 Unknown [id number] 2001 Unknown [id number] 2001 Unknown [id number] 2001 Unknown [id number] 2001 Unknown [id number] Unknown [id number] Unknown [id number] Social History Date Type Detail Facility Start: 09-01-2020 End: 07-16-2023 Tobacco smoking status NHIS Never smoked tobacco [facility] Start: 08-22-2021 End: 02-07-2022 Alcohol intake Current drinker of alcohol (finding) [facility] Start: 03-06-2021 History SDOH Alcohol Comment special occasions [facility] Start: 2001 Sex Assigned At Not on file [facility] Start: 06-24-2021 End: 04-23-2022 Exposure to SARS-CoV-2 (event) Not sure [facility] Start: 08-28-2021 End: 05-02-2023 Tobacco smoking status NHIS Unknown if ever smoked [facility] Start: 2001 Sex Assigned At Female [facility] [employer] [facility] Work Phone: Tobacco smoking status No Smokin g Status Entered [facility] Start: 09-01-2020 End: 07-16-2023 Tobacco use and exposure Smokeless tobacco non-user [facility] Start: 12-28-2021 End: 01-07-2022 Exposure to SARS-CoV-2 (event) Unable to assess [facility] Work Phone: Start: 01-09-2022 Tobacco Comment smoking outsid e per mom [facility] Start: 02-28-2022 End: 11-26-2024 Alcohol intake Ex-drinker (finding) [facility] Start: 02-28-2022 Education 9 [facility] Start: 01-21-2022 [facility] Tobacco smoking status [facility] Start: 09-30-2022 History SDOH Financial 5 [facility] Start: 09-30-2022 History SDOH Food Worry 1 [facility] Start: 09-30-2022 History SDOH Transpo rt Med 2 [facility] Start: 10-08-2022 End: 12-12-2022 History of Social function [facility] Start: 10-08-2022 End: 12-12-2022 Tobacco use panel [facility] How hard is it for y ou to pay for the very basics like food, housing, medical care, and heating Not hard at all [facility] (I/We) worried jennifer er (my/our) food would run out before (I/we) got money to buy more. Never true [facility] In the past 12 month s, was there a time when you were not able to pay the mortgage or rent on time? No [facility] History of tobacco use Passive smoker [facility] Start: 2021 Sex Female (finding) [facility] Goals Date Patient Goal Desired Activity /State Personal health goal Functional Status Date Assessment Result Facility 05-18-2024 Functional Status ID band on, Call device within reach, Bed in low position [facility] 05-18-2024 Functional Status [facility] 10-07-2022 Are you deaf, or do you have serious difficulty hearing No 10/07/2022 5:35 PM Lauren Linares RN [facility] 10-07-2022 Are you blind, or do you have serious difficulty seeing, even when wearing glasses No 10/07/2022 5:35 PM Lauren Linares RN No [facility] 10-07-2022 Do you have serious difficulty walking or climbing stairs No 10/07/2022 5:35 PM Lauren Linares RN [facility] 10-07-2022 Do you have difficul ty dressing or bathing No 10/07/2022 5:35 PM Lauren Linares RN [facility] 10-07-2022 Because of a physica l, mental, or emotional condition, do you have difficulty doing errands alone such as visiting a physician's office or shopping No 10/07/2022 5:35 PM Lauren Linares RN [facility] 09-15-2022 Functional Status Ambulating in room, Awake [facility] 09-15-2022 Functional Status [facility] 09-14-2022 Functional Status [facility] 08-23-2022 Functional Status Independent [facility] 08-23-2022 Functional Status Standard Safet y ID band on, Allergy Band on, Call device within reach, Bed in low position, Wheels locked, Visitor at bedside, Safety level maintained [facility] 07-12-2022 Functional Status Resting [facility] 07-12-2022 Functional Status [facility] 07-12-2022 Functional Status [facility] 07-11-2022 Functional Status Maternal Activ ity Sitting in bed [facility] 07-11-2022 Functional Status [facility] 07-11-2022 Functional Status Home independently [facility] 07-10-2022 Functional Status Independent [facility] 07-10-2022 Functional Status Awake [facility] 11-03-2021 Functional Status Independent [facility] 2021 Functional Status ID band on, Call device within reach, Bed in low position, Wheels locked, Visitor at bedside [facility] Mental Status Date Assessment Result Facility 05-18-2024 Mental Status Orientation Oriented x 4 [facility] 05-18-2024 Mental Status [facility] 05-02-2023 Cognitive function Level Of Cons ciousness Awake;Alert;Appropriate [facility] Work Phone: 10-07-2022 Because of a physica l, mental, or emotional condition, do you have serious difficulty concentrating, remembering, or making decisions No 10/07/2022 5:35 PM Lauren Linares RN No [facility] 09-15-2022 Mental Status Orientation Oriented x 4 [facility] 08-24-2022 Cognitive function Awake;Alert;A ppropriate;Fol lows Commands [facility] Work Phone: 08-23-2022 Mental Status Orientation Oriented x 4 [facility] 08-23-2022 Mental Status [facility] 07-11-2022 Mental Status Oriented x 4 [facility] 07-11-2022 Mental Status Oriented x 4 [facility] 11-03-2021 Mental Status Orientation Oriented x 4 [facility] 2021 Mental Status [facility] 08-28-2021 Cognitive function Level Of Cons ciousness Awake;Alert;Appropriate;Fol lows Commands [facility] Work Phone: Clinical Notes 09-07-2020 to 11-26-2024 Rachel Banks APRN.MEDICAL OFFICE COORDINATOR - 11/26/2024 12:43 PM EDTTelephone Encounter - Ladan No RN - 11/22/2024 11:43 AM EDTTelephone Encounter - Ladan No RN - 11/22/2024 11:43 AM EDT Note Date & Type Note Facility 11-26-2024 History of Present illness Narrative Images from the original note were not included. Patient declined personal trainer. Obstetrics and Gynecology [place] [employer] Visit Subjective Recording using Em[employer] software for draft documentation of the visit was discussed with the patient/authorized traveling sales representative; all questions welcomed and answered. Patient/authorized traveling sales representative agreed to proceed CHIEF COMPLAINT: The patient is a 24-year-old female presenting for STD testing and concerns about amenorrhea following her last Depo-Provera injection in May. HPI: STD Testing - Requests STD testing today. - Denies any burning or itching. - Reports some white vaginal discharge. Concerns - Requests a test today. - Urine test was negative. - Requests a blood test. Amenorrhea - Last Depo-Provera injection was in May. - Has not had a period since the last injection. 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 PAST SURGICAL HISTORY Procedure Laterality Date DELIVERY ONLY 09/24/2022 [facility] PAST SURGICAL HISTORY OF VNS implant, vagal nerve stimulator- approx in 2016 FAMILY HISTORY Problem Relation Age of Onset No Known Problems Father Thyroid Cancer Mother No Known Problems Brother Asthma Brother outgrown asthma Allergies Brother other (drug overdose) Brother other (MVA) Brother Allergies Brother No Known Problems Sister other (retina cancer) Maternal Grandfather Uterine Cancer Maternal Grandmother No Known Problems Paternal Grandfather COPD Paternal Grandmother Diabetes Maternal Aunt Social History Tobacco Use Smoking status: Never Passive exposure: Current Smokeless tobacco: Never Tobacco comments: smoking outside per mom Vaping Use Vaping status: Never Used Substance Use Topics Alcohol use: Not Currently Drug use: Not Currently Types: Marijuana Current Outpatient Medications Medication Sig lacosamide (VIMPAT) 50 mg tab Take 1 tablet by mouth two times a day for 180 days. levETIRAcetam (KEPPRA) 1,000 mg tablet Take 2.5 tablets by mouth two times a day. lacosamide (VIMPAT) 150 mg tab Take 2 tablets by mouth two times a day for 180 days. clonazePAM (KLONOPIN) 0.5 mg tablet Take 1 tablet by mouth three times a day for 180 days. ethosuximide (ZARONTIN) 250 mg capsule Take 1 capsule by mouth two times a day. perampanel (FYCOMPA) 4 mg tablet Take 1 tablet by mouth daily at bedtime for 180 days. cloBAZam (ONFI) 10 mg tab tablet Take 2 tablets by mouth two times a day for 180 days. zonisamide (ZONEGRAN) 100 mg capsule Take 3 capsules by mouth two times a day. folic acid 1 mg tablet Take 2 tablets by mouth twice daily. medroxyPROGESTERone (DEPO-PROVERA) 150 mg/mL Inject 1 mL intramuscularly every 12 weeks. (Patient not taking: Reported on 11/26/2024) Current Facility-Administered Medications Medication Dose Route Frequency medroxyPROGESTERone 150 mg injection (DEPO-PROVERA) 150 mg INTRAMUSCULAR every 12 weeks medroxyPROGESTERone 150 mg injection (DEPO-PROVERA) 150 mg INTRAMUSCULAR every 12 weeks ALLERGIES Allergen Reactions Depakote [Divalproe* Other: See Comments Abnormal LFTs REVIEW OF SYSTEMS: Genitourinary: (+) vaginal discharge, (+) amenorrhea Objective SENSITIVE EXAM: The sensitive examination was discussed with the Patient or Patient's Authorized Flight Operation Coordinator. As applicable, any other physician, advance practice provider, medical student, or other health professional student that will be observing or involved in the sensitive examination for educational or training purposes was discussed with the Patient or Authorized Flight Operation Coordinator. The Patient or Authorized Flight Operation Coordinator has agreed to proceed with the sensitive examination. (Sensitive examination includes inspection and/or palpation of the breasts, pelvis, prostate and anorectal regions). PHYSICAL EXAM: BP 118/68 Wt 198 lb 9.6 oz (90.1kg) GENERAL: Pleasant; in no apparent distress PULMONARY: normal inspiratory effort : - PELVIC: external genitalia normal, normal Bartholin's glands, urethra, [place]'s glands, no vulvar lesions, no cervical lesions, good vaginal support, physiologic discharge present, normal appearing perineal body and perianal region - Patient consent for exam received NEURO: alert and oriented x3 EXTREMITIES: normal Assessment & Plan ASSESSMENT AND PLAN: 1. Missed menses (N92.6) 2. Other specified conditions associated with female genital organs and menstrual cycle (N94.89) - Last Depo-Provera injection reportedly in May; amenorrhea since then. - Educated patient that amenorrhea [id number] is common and can last 12-18 months before regular menstrual cycles resume. - Ordered serum hCG test to confirm negative status; patient to have blood drawn at the lab today. 3. Unprotected sexual intercourse (Z72.51) - Ordered STD testing via vaginal swabs. 4. Vaginal discharge (N89.8) - Noted white vaginal discharge; no associated burning or itching reported. - Vaginal swabs will also assess for potential infectious causes. Patient is interested in control, she will contact the office if her test is negative. Patient also stated that they recently increased some of her medications due to increase in seizure activity. Rachel Banks APRN.MEDICAL OFFICE COORDINATOR Medical Decision Making: Problems: Low: Acute, uncomplicated illness or injury Data: Unique test(s) ordered: 3+ Risk: Moderate: Drug management Medical Decision Making Level: 4 - Moderate documented in this encounter [facility] 11-22-2024 Telephone encounter Note Spoke with the patient. She had clusters of seizures over the weekend and a couple today, having clusters. Not missing ASM doses. She is unsure of triggers other than the last time she was , she experienced seizure clusters. She did a home test and was unsure of the result. She has a visit with AUTOMOTIVE SERVICE TECHNICIAN on 11/21. Informed her of recommendation to trial increasing LCM, PER. She does not want to increase PER and will discuss LCM increase with her mother. Routed to DOMING[place] 2 for review. Ladan No RN [facility] 11-22-2024 Miscellaneous Notes Spoke with the patient. She had clusters of seizures over the weekend and a couple today, having clusters. Not missing ASM doses. She is unsure of triggers other than the last time she was , she experienced seizure clusters. She did a home test and was unsure of the result. She has a visit with AUTOMOTIVE SERVICE TECHNICIAN on 11/21. Informed her of recommendation to trial increasing LCM, PER. She does not want to increase PER and will discuss LCM increase with her mother. Routed to [place] 2 for review. Ladan No RN See 11/18/24 phone encounter. Seizure Call Last Visit: 02/19/2024 Next Visit: 12/13/2024 Date and Time of seizure: 11/18/2024 morning. She thinks she may have had 10 seizures this week. Seizure description: stares off and eyes flutter. Her hands clench. Duration: the one this morning lasted a couple of seconds. She had on last night that lasted two minutes. Witnessed: no Aura: no Last Seizure: patient is not sure when the last one was before this cluster. She said it has been a while. TB: no UI: no Rescue Medication used: took one LEV and one CZB last night after the 2 minute seizure. ASM: PER 4mg at HS LEV 3000mg BID LCM 300mg BID CLB 20mg BID ZNS 300mg BID CZP 0.5mg TID ETX 250mg BID Last labs on 09/15/2024 Triggers: patient thinks she might be , she says her breasts are sore and feeling nauseated. She has an OB appointment on 11/26/2024. Back to [place]: tired. Other: patient thinks she might be . States her period is 3 weeks late and she is symptomatic. Encouraged her to take a test and send the office a my chart if she is positive. Encouraged her to keep a log of her seizures. Patient states she does not drive. ======== If sz's persists based on last labs would trial increasing LCM by 100 mg or PER by 2 mg. If she confirms would recheck levels KETAN and start monthly levels. LIAM Williamson RN documented in this encounter [facility] 11-18-2024 Telephone encounter Note If sz's persists based on last labs would trial increasing LCM by 100 mg or PER by 2 mg. If she confirms would recheck levels KETAN and start monthly levels. Patrick Arreola APRN.MEDICAL OFFICE COORDINATOR [facility] 11-18-2024 Miscellaneous Notes If sz's persists based on last labs would trial increasing LCM by 100 mg or PER by 2 mg. If she confirms would recheck levels KETAN and start monthly levels. Patrick Arreola APRN.SARAH Images from the original note were not included. Call to patient in regard to my chart message copied below: Kiki Ware to P [facility] (supporting Ruben Tellez MD) [place] 11/17/24 6:45 PM I just started having small seizures again an I don t know why an I have not missed any of my medication at night or morning I take them on time they just started coming back for some odd reason Seizure Call Last Visit: 02/19/2024 Next Visit: 12/13/2024 Date and Time of seizure: 11/18/2024 morning. She thinks she may have had 10 seizures this week. Seizure description: stares off and eyes flutter. Her hands clench. Duration: the one this morning lasted a couple of seconds. She had on last night that lasted two minutes. Witnessed: no Aura: no Last Seizure: patient is not sure when the last one was before this cluster. She said it has been a while. TB: no UI: no Rescue Medication used: took one LEV and one CZB last night after the 2 minute seizure. ASM: PER 4mg at HS LEV 3000mg BID LCM 300mg BID CLB 20mg BID ZNS 300mg BID CZP 0.5mg TID ETX 250mg BID Last labs on 09/15/2024 Triggers: patient thinks she might be , she says her breasts are sore and feeling nauseated. She has an OB appointment on 11/26/2024. Back to [place]: tired. Other: patient thinks she might be . States her period is 3 weeks late and she is symptomatic. Encouraged her to take a test and send the office a my chart if she is positive. Encouraged her to keep a log of her seizures. Patient states she does not drive. documented in this encounter [facility] 11-18-2024 Telephone encounter Note See 11/18/24 phone encounter. Seizure Call Last Visit: 02/19/2024 Next Visit: 12/13/2024 Date and Time of seizure: 11/18/2024 morning. She thinks she may have had 10 seizures this week. Seizure description: stares off and eyes flutter. Her hands clench. Duration: the one this morning lasted a couple of seconds. She had on last night that lasted two minutes. Witnessed: no Aura: no Last Seizure: patient is not sure when the last one was before this cluster. She said it has been a while. TB: no UI: no Rescue Medication used: took one LEV and one CZB last night after the 2 minute seizure. ASM: PER 4mg at HS LEV 3000mg BID LCM 300mg BID CLB 20mg BID ZNS 300mg BID CZP 0.5mg TID ETX 250mg BID Last labs on 09/15/2024 Triggers: patient thinks she might be , she says her breasts are sore and feeling nauseated. She has an OB appointment on 11/26/2024. Back to [place]: tired. Other: patient thinks she might be . States her period is 3 weeks late and she is symptomatic. Encouraged her to take a test and send the office a my chart if she is positive. Encouraged her to keep a log of her seizures. Patient states she does not drive. ======== If sz's persists based on last labs would trial increasing LCM by 100 mg or PER by 2 mg. If she confirms would recheck levels KETAN and start monthly levels. Patrick Arreola APRN.SARAH No RN [facility] 11-18-2024 Telephone encounter Note Images from the original note were not included. Call to patient in regard to my chart message copied below: Kiki Ware to P [facility] (supporting Ruben Tellez MD) [place] 11/17/24 6:45 PM I just started having small seizures again an I don t know why an I have not missed any of my medication at night or morning I take them on time they just started coming back for some odd reason Seizure Call Last Visit: 02/19/2024 Next Visit: 12/13/2024 Date and Time of seizure: 11/18/2024 morning. She thinks she may have had 10 seizures this week. Seizure description: stares off and eyes flutter. Her hands clench. Duration: the one this morning lasted a couple of seconds. She had on last night that lasted two minutes. Witnessed: no Aura: no Last Seizure: patient is not sure when the last one was before this cluster. She said it has been a while. TB: no UI: no Rescue Medication used: took one LEV and one CZB last night after the 2 minute seizure. ASM: PER 4mg at HS LEV 3000mg BID LCM 300mg BID CLB 20mg BID ZNS 300mg BID CZP 0.5mg TID ETX 250mg BID Last labs on 09/15/2024 Triggers: patient thinks she might be , she says her breasts are sore and feeling nauseated. She has an OB appointment on 11/26/2024. Back to [place]: tired. Other: patient thinks she might be . States her period is 3 weeks late and she is symptomatic. Encouraged her to take a test and send the office a my chart if she is positive. Encouraged her to keep a log of her seizures. Patient states she does not drive. [facility] 10-29-2024 Telephone encounter Note [employer] message sent to Pt. Radha Holt RN [facility] 10-29-2024 Miscellaneous Notes [employer] message sent to Pt. Radha Holt RN Kiki has no showed x 3 appointments this month. She can make an appointment with any provider to discuss her concerns. Ariel Gutierrez APRN.CNP e Patient calling in because she is concerned that she has not started menses yet. Last Depo Injection was 05/13/2024. States she has not been sexually active for 75 days. I calculated 75 days prior to today and that was August 13. she states she is unsure -that she might of had intercourse a few days days after that. States that she took a test 1 month ago and it was negative. States she does not want to use any control at this time. I recommended patient take another test and call us back with result. She stated I am sure I am not . I am pretty skinny. Patient last seen in office 09/15/2024for contraceptive management. Please advise. documented in this encounter [facility] 10-29-2024 Telephone encounter Note Kiki has no showed x 3 appointments this month. She can make an appointment with any provider to discuss her concerns. Ariel Gutierrez APRN.CNP e [facility] 10-29-2024 Telephone encounter Note Patient calling in because she is concerned that she has not started menses yet. Last Depo Injection was 05/13/2024. States she has not been sexually active for 75 days. I calculated 75 days prior to today and that was August 13. she states she is unsure -that she might of had intercourse a few days days after that. States that she took a test 1 month ago and it was negative. States she does not want to use any control at this time. I recommended patient take another test and call us back with result. She stated I am sure I am not . I am pretty skinny. Patient last seen in office 09/15/2024for contraceptive management. Please advise. [facility] 10-04-2024 Telephone encounter Note Normal for delayed return of menses after Depo discontinuation. Patient's choice if she wants to stay on contraception. Would recommend staying on contraception if sexually active. Should discuss epilepsy control with neurologist. Ariel Gutierrez APRN.SARAH [facility] 10-04-2024 Miscellaneous Notes Normal for delayed return of menses after Depo discontinuation. Patient's choice if she wants to stay on contraception. Would recommend staying on contraception if sexually active. Should discuss epilepsy control with neurologist. Ariel Gutierrez APRN.SARAH Patient calling regarding depo injection. She hasn't restarted yet. She is very hesitant to start it back up again because she hasn't had menses since around January 2024. Last depo was given 05/13/24. Advised it can take a few months for menses to return to normal after stopping depo and that injection would have lasted through 08/05. She is not sexually active and possibly wants to not have any contraceptive for now, although mother is pushing for her to restart it d/t her epilepsy. Asking provider's opinion if she should restart and if not having menses yet is normal or if she should be concerned. Sixto Espitia RN documented in this encounter [facility] 10-04-2024 Telephone encounter Note Patient calling regarding depo injection. She hasn't restarted yet. She is very hesitant to start it back up again because she hasn't had menses since around January 2024. Last depo was given 05/13/24. Advised it can take a few months for menses to return to normal after stopping depo and that injection would have lasted through 08/05. She is not sexually active and possibly wants to not have any contraceptive for now, although mother is pushing for her to restart it d/t her epilepsy. Asking provider's opinion if she should restart and if not having menses yet is normal or if she should be concerned. Sixto Espitia RN [facility] 09-22-2024 Note Addended by: PATRICK CONTI on: 09/22/2024 04:29 PM Modules accepted: Orders [facility] 09-22-2024 Miscellaneous Notes Addended by: PATRICK ARREOLA on: 09/22/2024 04:29 PM Modules accepted: Orders Latest Ref Rng 09/15/2024 Alkaline Phosphatase 34 - 123 U/L 151 (H) Latest Ref Rng 09/15/2024 Ethosuximide 40.0 - 100.0 ug/mL 37.9 (L) Latest Ref Rng 09/15/2024 Clobazam 30 - 300 ng/mL 364.0 (H) N-desmethylclobazam 300 - 3000 ng/mL 3120.0 (H) Latest Ref Rng 09/15/2024 Lacosamide 2.2 - 19.8 ug/mL 9.3 Latest Ref Rng 09/15/2024 Levetiracetam 12.0 - 46.0 ug/mL 37.6 Latest Ref Rng 09/15/2024 Perampanel 0.18 - 0.98 ug/mL 0.30 Latest Ref Rng 09/15/2024 Zonisamide 10.0 - 40.0 ug/mL 29.8 == See 09/10/24 MyChart message. Last visit 02/19/24 PLAN: Continue AEDs at same doses . Fycompa 4 mg QHS . Keppra 3000 mg BID Vimpat 300 mg BID Onfi 20 mg BID Zonisamide 300 mg BID Klonapin 0.5 mg TID Ethosuzimide (Zarontin) 250 mg BID to be taken with food. HomeEEG monitoring pending Future options: if seizures are reasonably controlled, we will reduce Keppra and Vimpat. Attempts to reduce Fycompa resulted in recurrence of seizures. AEDs not tried yet: Lamictal, Xcopri, Epidiolex. Will revisit VNS settings in the future. At this time she is not able to tolerate 1.5mA. APR [address] Tellez Routed to [facility] 2 for review and recommendations. Ladan No RN CBC, CMP, LEV resulted. ETX, PER, ZNS, CLB, LCM in process. Ladan No RN documented in this encounter [facility] 09-21-2024 Telephone encounter Note Latest Ref Rng 09/15/2024 Alkaline Phosphatase 34 - 123 U/L 151 (H) Latest Ref Rng 09/15/2024 Ethosuximide 40.0 - 100.0 ug/mL 37.9 (L) Latest Ref Rng 09/15/2024 Clobazam 30 - 300 ng/mL 364.0 (H) N-desmethylclobazam 300 - 3000 ng/mL 3120.0 (H) Latest Ref Rng 09/15/2024 Lacosamide 2.2 - 19.8 ug/mL 9.3 Latest Ref Rng 09/15/2024 Levetiracetam 12.0 - 46.0 ug/mL 37.6 Latest Ref Rng 09/15/2024 Perampanel 0.18 - 0.98 ug/mL 0.30 Latest Ref Rng 09/15/2024 Zonisamide 10.0 - 40.0 ug/mL 29.8 == See 09/10/24 MyChart message. Last visit 02/19/24 PLAN: Continue AEDs at same doses . Fycompa 4 mg QHS . Keppra 3000 mg BID Vimpat 300 mg BID Onfi 20 mg BID Zonisamide 300 mg BID Klonapin 0.5 mg TID Ethosuzimide (Zarontin) 250 mg BID to be taken with food. HomeEEG monitoring pending Future options: if seizures are reasonably controlled, we will reduce Keppra and Vimpat. Attempts to reduce Fycompa resulted in recurrence of seizures. AEDs not tried yet: Lamictal, Xcopri, Epidiolex. Will revisit VNS settings in the future. At this time she is not able to tolerate 1.5mA. APR [address] Tellez Routed to [facility] 2 for review and recommendations. Ladan No RN [facility] 09-20-2024 Telephone encounter Note Patient changed her mind and does not want Nexplanon. Wants to go back on depo injection. Please file. Scheduled nurse visit. Sixto Espitia RN [facility] 09-20-2024 Miscellaneous Notes Patient changed her mind and does not want Nexplanon. Wants to go back on depo injection. Please file. Scheduled nurse visit. Sixto Espitia RN documented in this encounter [facility] 09-16-2024 Telephone encounter Note Patient called in and decided she wants to proceed with Nexplanon insertion. Scheduled for 09/22. Please file order to attach to appt. Sixto Espitia RN [facility] 09-16-2024 Miscellaneous Notes Patient called in and decided she wants to proceed with Nexplanon insertion. Scheduled for 09/22. Please file order to attach to appt. Sixto Espitia RN documented in this encounter [facility] 09-16-2024 Telephone encounter Note CBC, CMP, LEV resulted. ETX, PER, ZNS, CLB, LCM in process. Ladan No RN [facility] 09-15-2024 Instructions Ariel Gutierrez APRN.MEDICAL OFFICE COORDINATOR - 09/15/2024 1:30 PM EDT Control Options control is a way for men and women to prevent . There are many different methods of control. By learning more about the options, you can decide which method is right for you and your partner. If you are sexually active and don't want a baby, don't wait to use control. An unwanted can happen any time you have unprotected sex. IUD What is it? An IUD, or intrauterine device, is a small, plastic, flexible, T-shaped device that is placed into the uterus (womb). There two types of IUDs. One type, ParaGard , can be kept in place for 10 years. (It contains copper, which stops the sperm from making it through the vagina and uterus to reach the egg, thus preventing fertilization.) It does NOT contain hormones. There are four IUD s that contain progesterone.Mirena is an IUD that contains a small amount of progesterone and is kept in place for 7 years. Kyleena is approved for 5 years and has a slightly lower dose. Diamante is similar but smaller and is good for 3 years. Liletta is also approved for 6 years and is ideal for those without insurance coverage. They all release the hormone progesterone, which causes the cervical mucus to become thicker so the sperm cannot reach the egg. The hormone also changes the lining of the uterus, so implantation of a fertilized egg cannot occur. How is it available? You must get a pelvic exam and your provider may check vaginal cultures. The IUD is placed into the uterus through the cervix during an exam in the office by a trained health care provider. How effective is it? The IUD is 99% effective. You should know: Side effects are different for the different IUDs. In some cases copper IUDs can cause more painful and heavy periods and backaches. All of the hormonal IUD s cause periods to be waste removalist and some women will have spotting or stop getting periods all together. It is normal to have 3 months of light spotting after insertion. IUDs should not be used if you have a recent history of pelvic infections or are at risk for infections. IUDs do not protect against sexually transmitted diseases (STDs), including HIV (the virus that causes AIDS). The male condom provides the best protection against most STDs. THE CONTROL PILL (ORAL CONTRACEPTIVE) How does it work? Pills work by thickening the cervical mucus so the sperm cannot reach the egg. The hormone in the pills also changes the lining of the uterus, so implantation of a fertilized egg cannot occur. In most cases, pills stop ovulation (the release of an egg). How is it used? A pill is taken at the same time every day. There are several different types of pills. Some are designed to allow the woman to have a period every month and others allow the women to have period every 3 months. You need to discuss which pill is best for you with your health care provider. How can I get it? The pill must be ordered for you by your health care provider. It is obtained by prescription. How effective is it? The pill is 99% effective, if taken correctly. However, up to 8% of women may get each year if they do not use it correctly. You should know: Certain medications, which your provider will discuss, cause the pill to lose effectiveness. You should use back-up control while taking these medications. The pill can cause minor side effects such as mood symptoms, breast tenderness, nausea and headaches. The hormones in pills can increase the risk of blood clots which usually form in the legs. This risk is higher in women who smoke. The pill is not recommended for women who are over 35 years of age and smoke, but can be used until menopause if you don't smoke cigarettes and are in good health. The Pill does not protect against STDs, including HIV (the virus that causes AIDS). VAGINAL RING (NuvaRing ) What is it? A small, flexible ring that slowly releases the hormones estrogen and progesterone into the bloodstream through the vaginal wall. It works to prevent the same ways as the pill. How is it used? A vaginal ring is inserted high into the vagina like a tampon. It stays in place for 3 weeks in a row. It is removed for a 1-week break - when the menstrual period occurs - before a new ring is inserted. How can I get it? Your health care provider must order the vaginal ring, which is obtained by prescription. How effective is it? The vaginal ring is 99% effective, if used correctly. However, if used incorrectly, up to 8% of women might get within 1 year. If the ring is removed for more than 3 hours, an additional form of control should be used. You should know: The vaginal ring can cause side effects similar to control pills. The vaginal ring does not protect against STDs, including HIV (the virus that causes AIDS). ANNOVERA is a NEW reusable contraceptive ring approved for one year s use. It is used in a similar fashion as the Nuvaring, but when it is removed, it is stored in a compact case and reused each month for an entire year. ORTHO EVRA -- THE PATCH'' What is it? A patch that prevents by delivering continuous levels of the hormones estrogen and progesterone transdermally (through the skin) and into the bloodstream. It works to prevent the same ways as the pill. How is it used? Ortho Evra is a 1 -inch square patch with hormones embedded in its adhesive layer. It is worn on the lower abdomen, buttocks or upper arm. One patch is worn continuously for 1 week and is replaced with a new patch on the same day of the week (patch change day) for a total of 3 weeks. No patch is worn during the fourth week (patch-free week), when the menstrual period occurs. Although the patch is designed to remain in place during bathing, showering and swimming, you should not apply lotion or oil on or near the patch site. How can I get it? Your health care provider must order the patch, which is obtained by prescription. You apply the patch yourself. How effective is it? The patch is about 99% effective, if used correctly. It is slightly less effective (92%) in women weighing more than 198 pounds. You should know: The patch can cause side effects similar to control pills and can cause an allergic reaction to the adhesive. Some studies have shown the patch delivers higher levels of the hormone estrogen and women may be at greater risk for blood clots. The patch does not protect against STDs, including HIV (the virus that causes AIDS). DEPO-PROVERA What is it? Depo-Provera is a form of the hormone progestin. How is it used? It is given as an injection into the woman's buttocks or arm. Each injection provides protection against for 12 weeks. How is it available? Depo-Provera must be ordered by a health care provider. It is given every 3 months, usually given at the doctor's office. How effective is it? Depo-Provera is 99% effective. You should know: Depo-Provera can cause side effects including mood changes, headaches, breast tenderness, irregular periods and weight gain. Fifty percent of women who use Depo-Provera for more than a year stop getting their periods while on the medication. Because of the risk of bone loss, your provider may recommend calcium supplements for women who use Depo-Provera. Depo-Provera does not protect against STDs, including HIV (the virus that causes AIDS). IMPLANTED HORMONE - NEXPLANON What is it? Nexplanon is a single plastic walter (1.5 inches long) that is placed directly under the skin of the upper arm by a physician. It delivers the hormone progesterone slowly over a 3-year period. How can I get it? Nexplanon is placed by a physician who is certified in this procedure. How effective is it? It is greater than 99% effective You should know: The side effects are similar to Depo-Provera. Specific side effects include swelling and/or pain at time of placement, breakage or internal scarring of tissue. The device is effective for 3 years and can be removed at any time before if desired. MALE CONDOM What is it? The male condom, or rubber, is a thin covering made of latex, plastic or animal membrane that is rolled over an erect penis. The covering prevents semen, the fluid that contains sperm, from entering a woman's vagina. Latex condoms are best for most people. Use plastic (Melanie ) condoms if you or your partner is allergic to latex. Condoms made from animal skins may not provide good protection from sexually transmitted diseases (STDs). How is it used? The condom is rolled over the erect penis before sexual activity begins. If the condom does not have a built-in nipple, leave -inch of the condom free at the tip of the penis so that semen has a place to collect. A new condom must be used each time you have sex. The condom must be in place before the penis gets near the vagina. How can I get it? Condoms can be purchased at most drug stores. Condoms also are sold in vending machines in restrooms. How effective is it? About 15% of women will get each year when condoms are used. However, condoms can be more effective when they are used exactly as intended. You should know: Latex condoms provide the best protection -- although not 100% protection -- from STDs by preventing the infected area from coming into contact with the partner. Use only water-based lubricants, such as K-Y Jelly or Astroglide . Oil-based lubricants (Vaseline ) can cause condoms to leak or break. If a condom breaks, a woman is at increased risk of getting . She should see her health care provider and consider emergency contraception. FEMALE CONDOM What is it? The female condom is a lubricated polyurethane (plastic) tube that has a flexible ring at each end. One end of the tube is closed. How is it used? Before sexual activity begins, the woman inserts the condom into her vagina so that the closed end of the tube covers the cervix, and the other end slightly covers the labia (lips on the outside of the vagina). The condom blocks sperm from entering the womb. How can I get it? Like the male condom, the female condom is available at drug stores without a prescription. How effective is it? About 21% of women get each year despite using a female condom, but the condom can be more effective when used exactly as instructed. You should know: Female condoms provide some protection against STDs, but the male condom provides the best protection. SPERMICIDES What is it? Spermicides are foams, jellies, tablets, sponges or suppositories that a woman places in her vagina and up next to the cervix (the opening leading from the vagina to the womb) before sex. Spermicides block the cervix and paralyze the sperm, making them unable to travel into the womb. Some women who choose this method will also use a diaphragm (a round piece of flexible rubber with a rigid rim which is inserted with spermicide prior to sex). How is it used? The woman places the spermicide inside the vagina within 1 hour before intercourse. More spermicide must be used each time you have sex. Follow the directions on the package carefully. How can I get it? Spermicides can be bought at most drug stores. Be careful not to confuse them with feminine hygiene products, such as douche or lubricants. Diaphragms are fitted in your doctor's office and if you gain or lose more than 10-15 pounds you may need to be re-fitted. How effective is it? About 29% of women get each year despite using spermicides, but they can be more effective when used exactly as instructed. You should know: Do not douche after sex when using a spermicide. You can wear a feminine pad to absorb spermicide that comes out. Spermicides do not protect against some STDs, including HIV (the virus that causes AIDS). EMERGENCY CONTRACEPTION What is it? Emergency contraception -- also called Plan B , Bushra , Next Choice or referred to as the morning after pill -- is a form of control that may be used by women within 120 hours (5 days) of having unprotected sex. It is more effective when taken soon after unprotected intercourse. The most commonly used emergency contraception consists of two doses of hormone pills taken in one day 12 hours apart. How does it work? The pill may prevent by temporarily blocking eggs from being produced, by stopping fertilization or keeping a fertilized egg from becoming implanted in the uterus. How is it available? Plan B can be purchased at a pharmacy without a prescription. For those under 17, a health care provider must order the medication. All pharmacies do not have to carry it, so you can sometimes search ahead of time which pharmacy is likely to carry it. See the website: www.ec-help.org. How effective is it? Plan B is about 90% effective when take within 72 hours of unprotected intercourse. Bushra is slightly more effective. You should know: Plan B is generally reserved for emergency situations and is not a regular method of control. Emergencies include being raped, having a condom break or slip off during sex, missing two or more control pills during a monthly cycle and having unplanned sex. ABSTINENCE Abstinence is also the best way to protect you against STDs. You may not be ready to have sex. Don't let someone pressure you into having sex if you don't feel ready. It is an important decision with serious emotional and physical consequences. VASECTOMY Vasectomy is a simple, safe operation that involves interrupting the tubes call the vas deferens that transport sperm. Vasectomy is a one-time procedure that provides permanent sterilization. The procedure is performed in the office under a local anesthetic. Most men are recovered within a few days of the procedure. To schedule a consultation call [phone] or to learn more about vasectomy, visit [email or web address] Reference Centers for Disease Control: [place] medical eligibility criteria for contraceptive use. www.CDC.gov. documented in this encounter [facility] 09-15-2024 Note HNO ID: [id number] Author: ARIEL GUTIERREZ APRN.CNP Service: ? Author Type: Nurse Practitioner Type: Progress Notes Filed: 09/15/2024 13:36 Note Text: Kiki Ware is a 23 year old female who presents for problem visit of contraception. HPI: Kiki is here to discuss contraception. Currently on Depo. Last dose 05/13/24. History of epilepsy - follows with neurology. Concerned about return of fertility with Depo. Was using Depo for seizure control. Reports her mom and neurologist want her to stay on Depo, but she is not sure. Has tried Depo, OCP, and Nexplanon in the past. Wondering if she is . 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 old PAST SURGICAL HISTORY Procedure Laterality Date DELIVERY ONLY 09/24/2022 [facility] PAST SURGICAL HISTORY OF VNS implant, vagal nerve stimulator- approx in 2015 FAMILY HISTORY Problem Relation Age of Onset No Known Problems Father Thyroid Cancer Mother No Known Problems Brother Asthma Brother outgrown asthma Allergies Brother other (drug overdose) Brother other (MVA) Brother Allergies Brother No Known Problems Sister other (retina cancer) Maternal Grandfather Uterine Cancer Maternal Grandmother No Known Problems Paternal Grandfather COPD Paternal Grandmother Diabetes Maternal Aunt Social History Tobacco Use Smoking status: Never Passive exposure: Current Smokeless tobacco: Never Tobacco comments: smoking outside per mom Vaping Use Vaping status: Never Used Substance Use Topics Alcohol use: Not Currently Drug use: Not Currently Types: Marijuana Current Outpatient Medications Medication Sig lacosamide (VIMPAT) 150 mg tab Take 2 tablets by mouth two times a day for 180 days. clonazePAM (KLONOPIN) 0.5 mg tablet Take 1 tablet by mouth three times a day for 180 days. ethosuximide (ZARONTIN) 250 mg capsule Take 1 capsule by mouth two times a day. levETIRAcetam (KEPPRA) 1,000 mg tablet Take 3 tablets by mouth two times a day. perampanel (FYCOMPA) 4 mg tablet Take 1 tablet by mouth daily at bedtime for 180 days. cloBAZam (ONFI) 10 mg tab tablet Take 2 tablets by mouth two times a day for 180 days. zonisamide (ZONEGRAN) 100 mg capsule Take 3 capsules by mouth two times a day. folic acid 1 mg tablet Take 2 tablets by mouth twice daily. Current Facility-Administered Medications Medication Dose Route Frequency medroxyPROGESTERone 150 mg injection (DEPO-PROVERA) 150 mg INTRAMUSCULAR every 12 weeks Allergies As of Date: 09/15/2024 Allergen Noted Reaction DEPAKOTE [DIVALPROEX] 07/23/2021 Other: See Comments Fully Assessed 09/15/2024 REVIEW OF SYSTEMS Expanded ROS: JOURNEYMAN PLUMBER: + amenorrhea Allergies and current medication updated:Yes SENSITIVE EXAM: Sensitive exam not performed. EXAM: BP 112/60 Ht 5' 2 (1.58m) Wt 205 lb (93.0kg) BMI 37.49 kg/(m2). GENERAL: pleasant, female in no apparent distress HEENT: Normocephalic, atraumatic, mucus membranes moist, and no lesions CHEST: Normal inspiratory effort NEURO: alert and oriented x3,exam grossly non-focal EXTREMITIES: normal ASSESSMENT AND PLAN: 1. Encounter for other general counseling or advice on contraception - ICD9: V25.09, ICD10: Z30.09 (primary diagnosis) - Reviewed all forms of contraception, risks and benefits - Kiki undecided on method and wants to discuss with mother - Written info on all forms of contraception provided 2. Missed menses - ICD9: 626.4, ICD10: N92.6 - Likely experiencing amenorrhea from Depo admin - HCG QUANTITATIVE To notify with decision on contraception. Ariel Gutierrez APRN.MEDICAL OFFICE COORDINATOR I spent a total of 20 minutes on the date of the service which included preparing to see the patient, [id number] patient care, completing clinical documentation, obtaining and/or reviewing separately obtained history, and counseling and educating the patient/family/caregiver. [facility] 09-15-2024 History of Present illness Narrative Kiki Ware is a 23 year old female who presents for problem visit of contraception. HPI: Kiki is here to discuss contraception. Currently on Depo. Last dose 05/13/24. History of epilepsy - follows with neurology. Concerned about return of fertility with Depo. Was using Depo for seizure control. Reports her mom and neurologist want her to stay on Depo, but she is not sure. Has tried Depo, OCP, and Nexplanon in the past. Wondering if she is . 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 old PAST SURGICAL HISTORY Procedure Laterality Date DELIVERY ONLY 09/24/2022 [facility] PAST SURGICAL HISTORY OF VNS implant, vagal nerve stimulator- approx in 2016 FAMILY HISTORY Problem Relation Age of Onset No Known Problems Father Thyroid Cancer Mother No Known Problems Brother Asthma Brother outgrown asthma Allergies Brother other (drug overdose) Brother other (MVA) Brother Allergies Brother No Known Problems Sister other (retina cancer) Maternal Grandfather Uterine Cancer Maternal Grandmother No Known Problems Paternal Grandfather COPD Paternal Grandmother Diabetes Maternal Aunt Social History Tobacco Use Smoking status: Never Passive exposure: Current Smokeless tobacco: Never Tobacco comments: smoking outside per mom Vaping Use Vaping status: Never Used Substance Use Topics Alcohol use: Not Currently Drug use: Not Currently Types: Marijuana Current Outpatient Medications Medication Sig lacosamide (VIMPAT) 150 mg tab Take 2 tablets by mouth two times a day for 180 days. clonazePAM (KLONOPIN) 0.5 mg tablet Take 1 tablet by mouth three times a day for 180 days. ethosuximide (ZARONTIN) 250 mg capsule Take 1 capsule by mouth two times a day. levETIRAcetam (KEPPRA) 1,000 mg tablet Take 3 tablets by mouth two times a day. perampanel (FYCOMPA) 4 mg tablet Take 1 tablet by mouth daily at bedtime for 180 days. cloBAZam (ONFI) 10 mg tab tablet Take 2 tablets by mouth two times a day for 180 days. zonisamide (ZONEGRAN) 100 mg capsule Take 3 capsules by mouth two times a day. folic acid 1 mg tablet Take 2 tablets by mouth twice daily. Current Facility-Administered Medications Medication Dose Route Frequency medroxyPROGESTERone 150 mg injection (DEPO-PROVERA) 150 mg INTRAMUSCULAR every 12 weeks Allergies As of Date: 09/15/2024 Allergen Noted Reaction DEPAKOTE [DIVALPROEX] 07/23/2021 Other: See Comments Fully Assessed 09/15/2024 REVIEW OF SYSTEMS Expanded ROS: JOURNEYMAN PLUMBER: + amenorrhea Allergies and current medication updated:Yes SENSITIVE EXAM: Sensitive exam not performed. EXAM: BP 112/60 Ht 5' 2 (1.58m) Wt 205 lb (93.0kg) BMI 37.49 kg/(m^2). GENERAL: pleasant, female in no apparent distress HEENT: Normocephalic, atraumatic, mucus membranes moist, and no lesions CHEST: Normal inspiratory effort NEURO: alert and oriented x3,exam grossly non-focal EXTREMITIES: normal ASSESSMENT AND PLAN: 1. Encounter for other general counseling or advice on contraception - ICD9: V25.09, ICD10: Z30.09 (primary diagnosis) - Reviewed all forms of contraception, risks and benefits - [place]yne undecided on method and wants to discuss with mother - Written info on all forms of contraception provided 2. Missed menses - ICD9: 626.4, ICD10: N92.6 - Likely experiencing amenorrhea from Depo admin - HCG QUANTITATIVE To notify with decision on contraception. Ariel Gutierrez APRN.SARAH I spent a total of 20 minutes on the date of the service which included preparing to see the patient, [id number] patient care, completing clinical documentation, obtaining and/or reviewing separately obtained history, and counseling and educating the patient/family/caregiver. documented in this encounter [facility] 09-10-2024 Telephone encounter Note See 08/01/24[facility], CBC levels ordered on 08/16/24 Ladan No RN [facility] 09-10-2024 Miscellaneous Notes See 08/01/24, 08/12/24 MyChart encounters ASM, CMP, CBC levels ordered on 08/16/24 Ladan No RN documented in this encounter [facility] 08-13-2024 Telephone encounter Note ELZA 02/19/24 IMPRESSION: Kiki Ware is a 22 year old woman with intractable generalized epilepsy with status epilepticus. She is currently on 7 AEDs and VNS. She had a prolonged hospital stay in August 2022 at [facility] where EEG showed frequent generalized seizures and abundant interictal discharges requiring escalation of AED therapy. Her seizures seemed to respond to Zarontin use which was the last medication added ( previously tried in 2017 but had abdominal pain). 07/16/2023 : Increased VNS from 1 to 1.25 mA. We discussed continued same dose of Fycompa for now at 4 mg QHS as lowering doses resulted in absence seizures and drops. ASM levels from Jan 2023 shows normal Keppra, LCM and ZNS levels. 01/23/2024: VNS increased to 1.5mA. She has new type of episodes where she feels as if she cannot move ( she calls them panic attacks). We discussed home EEG monitoring. AEDs were continued. Unable to tolerate 1.5mA setting. We decreased the output to 1.25 today. Awaiting home EEG monitoring. PLAN: Continue AEDs at same doses Fycompa 4 mg QHS Keppra 3000 mg BID Vimpat 300 mg BID Onfi 20 mg BID Zonisamide 300 mg BID Klonapin 0.5 mg TID Ethosuzimide (Zarontin) 250 mg BID to be taken with food. HomeEEG monitoring pending Future options: if seizures are reasonably controlled, we will reduce Keppra and Vimpat. Attempts to reduce Fycompa resulted in recurrence of seizures. AEDs not tried yet: Lamictal, Xcopri, Epidiolex. Will revisit VNS settings in the future. At this time she is not able to tolerate 1.5mA. Per / MyChart message Patient advises feeling occurs ~ 20 minutes after AM doses only of ASMs - feels out of it - no confusion of JAVIER Feeling lasts for a few minutes; resolves Does not occur with PM doses Patient takes ASMs w/food or snack Patient may take AM doses around 10 am or 12 noon and 12 AM Forwarded to [employer] for review Ngoc Joyce RN Glad to hear you haven't had any seizures. If you're feeling weird in the morning you could try taking half of the am meds at a time and spacing them out by an hour or so to see if that helps. Patrick Arreola APRN.MEDICAL OFFICE COORDINATOR NOV: 10/29/2024 w/Dr. Tellez Forwarded to [employer] for review Ladan No RN [facility] 08-13-2024 Miscellaneous Notes ELZA 02/19/24 IMPRESSION: Kiki Ware is a 22 year old woman with intractable generalized epilepsy with status epilepticus. She is currently on 7 AEDs and VNS. She had a prolonged hospital stay in August 2022 at [facility] where EEG showed frequent generalized seizures and abundant interictal discharges requiring escalation of AED therapy. Her seizures seemed to respond to Zarontin use which was the last medication added ( previously tried in 2017 but had abdominal pain). 07/16/2023 : Increased VNS from 1 to 1.25 mA. We discussed continued same dose of Fycompa for now at 4 mg QHS as lowering doses resulted in absence seizures and drops. ASM levels from Jan 2023 shows normal Keppra, LCM and ZNS levels. 01/23/2024: VNS increased to 1.5mA. She has new type of episodes where she feels as if she cannot move ( she calls them panic attacks). We discussed home EEG monitoring. AEDs were continued. Unable to tolerate 1.5mA setting. We decreased the output to 1.25 today. Awaiting home EEG monitoring. PLAN: Continue AEDs at same doses Fycompa 4 mg QHS Keppra 3000 mg BID Vimpat 300 mg BID Onfi 20 mg BID Zonisamide 300 mg BID Klonapin 0.5 mg TID Ethosuzimide (Zarontin) 250 mg BID to be taken with food. HomeEEG monitoring pending Future options: if seizures are reasonably controlled, we will reduce Keppra and Vimpat. Attempts to reduce Fycompa resulted in recurrence of seizures. AEDs not tried yet: Lamictal, Xcopri, Epidiolex. Will revisit VNS settings in the future. At this time she is not able to tolerate 1.5mA. Per 3/ MyChart message Patient advises feeling occurs ~ 20 minutes after AM doses only of ASMs - feels out of it - no confusion of JAVIER Feeling lasts for a few minutes; resolves Does not occur with PM doses Patient takes ASMs w/food or snack Patient may take AM doses around 10 am or 12 noon and 12 AM Forwarded to [employer] for review Ngoc Joyce RN Glad to hear you haven't had any seizures. If you're feeling weird in the morning you could try taking half of the am meds at a time and spacing them out by an hour or so to see if that helps. Patrick Arreola APRN.CNP NOV: 10/29/2024 w/Dr. Tellez Forwarded to [facility] [employer] for review Ladan No RN documented in this encounter [facility] 08-04-2024 Telephone encounter Note The following approved medication requests have been transmitted electronically. Requested Prescriptions Signed Prescriptions Disp Refills lacosamide (VIMPAT) 150 mg tab 360 tablet 1 Sig: Take 2 tablets by mouth two times a day for 180 days. Authorizing Provider: PATRICK ARREOLA clonazePAM (KLONOPIN) 0.5 mg tablet 270 tablet 1 Sig: Take 1 tablet by mouth three times a day for 180 days. Authorizing Provider: PATRICK ARREOLA ethosuximide (ZARONTIN) 250 mg capsule 180 capsule 1 Sig: Take 1 capsule by mouth two times a day. Authorizing Provider: PATRICK ARREOLA levETIRAcetam (KEPPRA) 1,000 mg tablet 540 tablet 1 Sig: Take 3 tablets by mouth two times a day. Authorizing Provider: PATRICK ARREOLA APRN.MEDICAL OFFICE COORDINATOR [facility] 08-04-2024 Miscellaneous Notes The following approved medication requests have been transmitted electronically. Requested Prescriptions Signed Prescriptions Disp Refills lacosamide (VIMPAT) 150 mg tab 360 tablet 1 Sig: Take 2 tablets by mouth two times a day for 180 days. Authorizing Provider: PATRICK ARREOLA clonazePAM (KLONOPIN) 0.5 mg tablet 270 tablet 1 Sig: Take 1 tablet by mouth three times a day for 180 days. Authorizing Provider: PATRICK ARREOLA ethosuximide (ZARONTIN) 250 mg capsule 180 capsule 1 Sig: Take 1 capsule by mouth two times a day. Authorizing Provider: PATRICK ARREOLA levETIRAcetam (KEPPRA) 1,000 mg tablet 540 tablet 1 Sig: Take 3 tablets by mouth two times a day. Authorizing Provider: PATRICK ARREOLA APRN.CNP Mother called stating the patient is out of medication. Prescription Refill: Requested by: patient Please E-Scribe Caller Contact Number: Pharmacy Name: [facility] Number: [phone] Generic/ brand: 30 or 90 day supply requested: 90 Last appointment: 02/19/24 Next Appointment: 10/29/[address] Diego Ware [id number] [facility] [id number] documented in this encounter [facility] 08-04-2024 Telephone encounter Note Mother called stating the patient is out of medication. [facility] 08-04-2024 Telephone encounter Note Prescription Refill: Requested by: patient Please E-Scribe Caller Contact Number: Pharmacy Name: [facility] Number: [phone] Generic/ brand: 30 or 90 day supply requested: 90 Last appointment: 02/19/24 Next Appointment: 10/29/[address] Diego Ware [phone] [facility] [address] [facility] 08-02-2024 Telephone encounter Note The following approved medication requests have been transmitted electronically. Requested Prescriptions Signed Prescriptions Disp Refills perampanel (FYCOMPA) 4 mg tablet 90 tablet 1 Sig: Take 1 tablet by mouth daily at bedtime for 180 days. Authorizing Provider: PATRIKC ARREOLA APRN.MEDICAL OFFICE COORDINATOR [facility] 08-02-2024 Miscellaneous Notes The following approved medication requests have been transmitted electronically. Requested Prescriptions Signed Prescriptions Disp Refills perampanel (FYCOMPA) 4 mg tablet 90 tablet 1 Sig: Take 1 tablet by mouth daily at bedtime for 180 days. Authorizing Provider: PATRICK ARREOLA APRN.MEDICAL OFFICE COORDINATOR ELZA: 02/19/2024 Forwarded to [employer] 2 jasen Joyce RN documented in this encounter [facility] 08-02-2024 Telephone encounter Note [facility] responded to patient Separate refill encounter forwarded to [employer] 2 jasen Joyce RN [facility] Work Phone: 08-02-2024 Miscellaneous Notes [facility] responded to patient Separate refill encounter forwarded to [employer] 2 jasen Joyce RN Patient advises feeling occurs ~ 20 minutes after AM doses only of ASMs - feels out of it - no confusion of JAVIER Feeling lasts for a few minutes; resolves Does not occur with PM doses Patient takes ASMs w/food or snack Patient may take AM doses around 10 am or 12 noon and 12 AM Forwarded to [employer] for review Ngoc Joyce RN Last known seizure: 06/13/2024 [facility] to be completed Current ASMs: Fycompa 4 mg QHS Keppra 3000 mg BID Vimpat 300 mg BID Onfi 20 mg BID Zonisamide 300 mg BID Klonapin 0.5 mg TID Ethosuzimide (Zarontin) 250 mg BID to be taken with food. + VNS NOV: 10/29/2024 w/Dr. Diego Stacy message to patient for clarification Ngoc Joyce RN documented in this encounter [facility] 08-02-2024 Telephone encounter Note ELZA: 02/19/2024 Forwarded to [employer] Ngoc Joyce RN [facility] Work Phone: 08-02-2024 Telephone encounter Note Patient advises feeling occurs ~ 20 minutes after AM doses only of ASMs - feels out of it - no confusion of JAVIER Feeling lasts for a few minutes; resolves Does not occur with PM doses Patient takes ASMs w/food or snack Patient may take AM doses around 10 am or 12 noon and 12 AM Forwarded to [employer] for review Ngoc Joyce RN [facility] 08-02-2024 Telephone encounter Note Last known seizure: 06/13/2024 [facility] to be completed Current ASMs: Fycompa 4 mg QHS Keppra 3000 mg BID Vimpat 300 mg BID Onfi 20 mg BID Zonisamide 300 mg BID Klonapin 0.5 mg TID Ethosuzimide (Zarontin) 250 mg BID to be taken with food. + VNS NOV: 10/29/2024 w/Dr. Diego Stacy message to patient for clarification Ngoc Joyce RN [facility] 07-21-2024 Telephone encounter Note The following approved medication requests have been transmitted electronically. Requested Prescriptions Signed Prescriptions Disp Refills cloBAZam (ONFI) 10 mg tab tablet 360 tablet 1 Sig: Take 2 tablets by mouth two times a day for 180 days. Authorizing Provider: PATRICK ARREOLA APRN.CNP [facility] 07-21-2024 Miscellaneous Notes The following approved medication requests have been transmitted electronically. Requested Prescriptions Signed Prescriptions Disp Refills cloBAZam (ONFI) 10 mg tab tablet 360 tablet 1 Sig: Take 2 tablets by mouth two times a day for 180 days. Authorizing Provider: PATRICK ARREOLA APRN.CNP Prescription Refill: Requested by: patient Please E-Scribe Caller Contact Number: Pharmacy Name: [facility] Number: [phone] Generic/ brand: 30 or 90 day supply requested: 90 Last appointment: 02/01/24 Next Appointment: 10/29/[address] Diego Ware [phone] [id number] [facility] [id number] documented in this encounter [facility] 07-21-2024 Telephone encounter Note Prescription Refill: Requested by: patient Please E-Scribe Caller Contact Number: Pharmacy Name: [facility] Number: [phone] Generic/ brand: 30 or 90 day supply requested: 90 Last appointment: 02/01/24 Next Appointment: 10/29/[address] Diego Ware [phone] [address] [facility] [id number] [facility] 07-20-2024 Telephone encounter Note The following approved medication requests have been transmitted electronically. Requested Prescriptions Signed Prescriptions Disp Refills zonisamide (ZONEGRAN) 100 mg capsule 540 capsule 1 Sig: Take 3 capsules by mouth two times a day. Authorizing Provider: PATRICK ARREOLA APRN.CNP [facility] 07-20-2024 Miscellaneous Notes The following approved medication requests have been transmitted electronically. Requested Prescriptions Signed Prescriptions Disp Refills zonisamide (ZONEGRAN) 100 mg capsule 540 capsule 1 Sig: Take 3 capsules by mouth two times a day. Authorizing Provider: PATRICK ARREOLA APRN.CNP Prescription Refill: Requested by: patient Please E-Scribe Caller Contact Number: Pharmacy Name: [facility] Number: [phone] Generic/ brand: 30 or 90 day supply requested: 90 Last appointment: 02/19/24 Next Appointment: none Patient of Dr. Tellez documented in this encounter [facility] 07-20-2024 Telephone encounter Note Prescription Refill: Requested by: patient Please E-Scribe Caller Contact Number: Pharmacy Name: [facility] Number: [phone] Generic/ brand: 30 or 90 day supply requested: 90 Last appointment: 02/19/24 Next Appointment: none Patient of Dr. Tellez [facility] 06-11-2024 Telephone encounter Note Pt calls in stating she needs checked. When asked what she would like checked for Pt states everything. States she just got out of a relationship. Also c/o vaginal bump that she would like checked out. Appt made with 06/17/24. Radha Holt RN [facility] 06-11-2024 Miscellaneous Notes Pt calls in stating she needs checked. When asked what she would like checked for Pt states everything. States she just got out of a relationship. Also c/o vaginal bump that she would like checked out. Appt made with 06/17/24. Radha Holt RN documented in this encounter [facility] 05-19-2024 Telephone encounter Note Pt notified and voiced understanding. Radha Holt RN [facility] 05-19-2024 Miscellaneous Notes Pt notified and voiced understanding. Radha Holt RN Would recommend discussing seizures with neurologist. Ariel Gutierrez APRN.SARAH Patient called in wondering if Depoprovera is causing her seizures. States she was recently seen in [facility] for seizures. Per MyChart message 05/17 to Neurology patient had declined transfer to [facility]. Currently awaiting home EEG. I did discuss with patient that there was a study that Medroxyprogesterone acetate was added to the antiepileptic drug regimen of 14 women who had uncontrolled seizures. Of the 11 women who developed amenorrhea, 7 reported fewer seizures during MPA therapy. https://pubmed.ncbi.nlm.nih.gov/65 67678/. I did recommend patient discuss all the medications she is taking with her neurologist. Patient states she can only name 1/2 the medications I am taking. I have advised patient to write down and carry with her a list of the medications she is on at all times. I also stated to her she should discuss these medications with her neurologist. Patient also states she is worried because she has been cramping and she hasn't had a period ever on Depo. I did discuss that bleeding can occur on Depo, especially after restarting med. Call only if further advice documented in this encounter [facility] 05-19-2024 Telephone encounter Note Would recommend discussing seizures with neurologist. Ariel Gutierrez APRN.SARAH [facility] 05-19-2024 Telephone encounter Note Patient called in wondering if Depoprovera is causing her seizures. States she was recently seen in [facility] for seizures. Per [employer] message 05/17 to Neurology patient had declined transfer to [facility]. Currently awaiting home EEG. I did discuss with patient that there was a study that Medroxyprogesterone acetate was added to the antiepileptic drug regimen of 14 women who had uncontrolled seizures. Of the 11 women who developed amenorrhea, 7 reported fewer seizures during MPA therapy. https://pubmed.ncbi.nlm.nih.gov/65 63139/. I did recommend patient discuss all the medications she is taking with her neurologist. Patient states she can only name 1/2 the medications I am taking. I have advised patient to write down and carry with her a list of the medications she is on at all times. I also stated to her she should discuss these medications with her neurologist. Patient also states she is worried because she has been cramping and she hasn't had a period ever on Depo. I did discuss that bleeding can occur on Depo, especially after restarting med. Call only if further advice [facility] 05-19-2024 Telephone encounter Note AEEG orders were sent to [facility]. Lenny Merlos E [facility] 05-19-2024 Miscellaneous Notes AEEG orders were sent to [facility]. Lenny Merlos documented in this encounter [facility] 05-18-2024 Hospital Discharge instructions Patient Education 05/18/2024 04:03:56 Seizure, New Onset, Unknown Cause (Adult) Seizure: New Onset with Unknown Cause (Adult) You have had a seizure today. A seizure happens when a burst of random, uncontrolled electrical activity occurs in the brain. A seizure can have many causes. Often it s not possible to figure out the exact cause of a seizure from a single exam. You might need other tests. Having a single seizure doesn t mean that you will continue to have seizures or that you have epilepsy. But until doctors know the cause of your seizure, you should assume that another seizure is possible. Home care Follow these tips when caring for yourself at home. For this seizure: Seizures aren t predictable. So avoid doing anything that might cause danger to you or other people if you have another seizure. Don t drive, ride a bike, or operate dangerous equipment. Don t take a bath alone. Take a shower instead. Don t swim alone until your healthcare provider says that you are no longer in danger of having another seizure. Tell your close friends and relatives about your seizure. Teach them what to do for you if it happens again. If medicine was prescribed to prevent seizures, take it exactly as directed. It does not work when taken as needed. Missing doses will increase the risk of having another seizure. Follow a regular sleep schedule such that you get at least 6 to 8 hours of restful sleep every night. This is especially important when you are sick and have a cold, flu, or another type of infection. Don't drink alcoholic beverages until your doctor says it's OK. Do not ever use recreational drugs. For future seizures, if you are alone: If you feel a seizure coming on, lie down on a bed or on the floor with something soft under your head. Lie on your left side, not on your back. This will keep you from falling. It will also let fluid drain out of your mouth and prevent choking. Be sure you are clear of any objects that might injure you during the seizure. Call 911 if there is time. For future seizures, if someone is with you: The person should help you get into a safe position and call 911. The person shouldn t try to force anything in your mouth once the seizure begins. This could harm your teeth or jaw. After a seizure, you may be drowsy or confused. The person should stay with you until you are fully awake. The person shouldn t offer you anything to eat or drink during that time. Call 911 or go to the emergency department so that you can be looked at. Follow-up care Follow up with your healthcare provider, or as advised. You may need other tests to help figure out what caused your seizure. These tests may include brain wave tests (EEG) or brain scans (MRI or CT scans). Keep a seizure calendar to record how often you have a seizure. If you are being started on anti-seizure medicine, make sure that you use additional control protection. Seizure medicine can affect how well control pills work, and you could become . Don't drink alcohol until your doctor tells you it s OK. Do not ever use recreational drugs. Note: For the safety of yourself and others on the road, certain states require that the treating doctor tell the Public Health Department about any adult who is treated for a seizure and is at risk of more seizures. In this case, the department of motor vehicles will be told. A restriction will be put on your driver/guide s license until a doctor gives you medical clearance to drive again. Contact your treating doctor to find out if your state requires the reporting of patients with a seizures condition. When to seek medical advice Call your healthcare provider right away if any of these occur: Another seizure Fever of 100.4 F (38 C) or higher, or as directed by your healthcare provider Unusual irritability, drowsiness, or confusion Headache or neck pain that gets worse [phone] [employer]. [address] [place] [address]. All rights reserved. This information is not intended as a substitute for professional medical care. Always follow your healthcare professional's instructions. Follow Up Care 05/18/2024 01:47:30 With:RUBEN TELLEZ Address: [address] [place] [address]- [phone] When:2-4 days With:RENÉE CORBETT MD Address: [address] [place] [phone] When:2-4 days [facility] 05-18-2024 Nurse Progress note After multiple conversations with Dr Crisostomo, the patient and her mother the patient is going to leave [facility]. She is refusing to be transferred to any other facility. She has been educated on the importance of staying to be transferred to figure out her medications for her seizures. She understands the potential consequences of not being transferred. Patients father is on his way to pick her up. Digitally Signed by Tessy Gomes RN on 05/18/2024 04:06 AM [facility] 05-18-2024 Note Exam Date Time Procedure Performing Provider Status 05/18/24 3:[address] Head or Brain w/o Contrast Auth (Verified) [id number] ORIGINAL EXAMINATION: CT OF THE HEAD WITHOUT CONTRAST 05/18/2024 3:24 am TECHNIQUE: CT of the head was performed without the administration of intravenous contrast. Automated exposure control, iterative reconstruction, and/or weight based adjustment of the mA/kV was utilized to reduce the radiation dose to as low as reasonably achievable. COMPARISON: None. HISTORY: ORDERING SYSTEM PROVIDED HISTORY: Reason for Exam: seizures FINDINGS: BRAIN/VENTRICLES: There is no acute intracranial hemorrhage, mass effect or midline shift. No abnormal extra-axial fluid collection. The graham-white differentiation is maintained without evidence of an acute infarct. There is no evidence of hydrocephalus. ORBITS: The visualized portion of the orbits demonstrate no acute abnormality. SINUSES: The visualized paranasal sinuses and mastoid air cells demonstrate no acute abnormality. SOFT TISSUES/SKULL: No acute abnormality of the visualized skull or soft tissues. IMPRESSION: No acute intracranial abnormality. Interpreted by: Ranjeet Brown MD Preliminary Report By: Ranjeet Brown MD Electronically signed By Ranjeet Brown MD Dictated Date: 05/18/2024 3:35:08 AM Prelim Date: 05/18/2024 3:36:42 AM Sign Date: 05/18/2024 3:36:42 AM Ordering Provider: MONA CRISOSTOMO [facility]12-16-2024 Telephone encounter Note* Telephone Encounter - Ngoc Joyce RN - 05/17/2024 12:51 PM EST DOMINGO responded directly to patient Ngoc Joyce RN [facility] Work Phone: [phone] Miscellaneous Notes* Telephone Encounter - Ngoc Joyce RN - 05/17/2024 12:51 PM EST DOMINGO responded directly to patient Ngoc Joyce RN * Addendum Note - Patrick Arreola APRN.CNP - 05/17/2024 12:19 PM ESTAddended by: PATRICK ARREOLA on: 05/17/2024 12:19 PM Modules accepted: Orders * Telephone Encounter - Ngoc Joyce RN - 05/17/2024 11:02 AM EST Patient reports concern for breakthrough seizure: Last Visit: 02/19/2024 Next Visit: None scheduled Date and Time of seizure: - 05/16 - last evening while watching TV Crystal panic attacks; was lying in bed; couldn't hear anything; vision felt blurry Eye fluttering She does not believe any jerking/twitching Fialexxe was in house - but did not witness No LOC No TB No UI She does not believe she lost awareness Length: unknown She feels this occurred multiple times Crystal some improvement after taking PM ASMs - 05/17 - patient reports some eye fluttering this AM No JAVIER Last seizure: 03/06/2024? Rescue Medication used: No ASM: patient cannot verify doses/parent assists with ASMs Fycompa 4 mg QHS Keppra 3000 mg BID Vimpat 300 mg BID Onfi 20 mg BID Zonisamide 300 mg BID Klonapin 0.5 mg TID Ethosuzimide (Zarontin) 250 mg BID to be taken with food. + VNS Triggers: Reports increased stress Denies other triggers Back to [place]: yes Other: Patient unable to schedule VV today Ambulatory EEG completed Forwarded to [employer] for review/recommendation Ngoc Joyce RN Per OV of 02/19/2024 01/23/2024: VNS increased to 1.5mA. She has new type of episodes where she feels as if she cannot move ( she calls them panic attacks). We discussed home EEG monitoring. AEDs were continued. Unable to tolerate 1.5mA setting. We decreased the output to 1.25 today. Awaiting home EEG monitoring. PLAN: Continue AEDs at same doses . Fycompa 4 mg QHS . Keppra 3000 mg BID Vimpat 300 mg BID Onfi 20 mg BID Zonisamide 300 mg BID Klonapin 0.5 mg TID Ethosuzimide (Zarontin) 250 mg BID to be taken with food. HomeEEG monitoring pending Future options: if seizures are reasonably controlled, we will reduce Keppra and Vimpat. Attempts to reduce Fycompa resulted in recurrence of seizures. AEDs not tried yet: Lamictal, Xcopri, Epidiolex. Will revisit VNS settings in the future. At this time she is not able to tolerate 1.5mA. * Telephone Encounter - Ngoc Joyce RN - 05/17/2024 8:27 AM EST Called patient, no answer. Left message for return call Ngoc Joyce RN documented in this encounterThe [facility]12-[facility] Note* Addendum Note - Patrick Arreola APRN.CNP - 05/17/2024 12:19 PM ESTAddended by: PATRICK ARREOLA on: 05/17/2024 12:19 PM Modules accepted: Orders [facility]12-16-2024 Telephone encounter Note* Telephone Encounter - Ngoc Joyce RN - 05/17/2024 11:02 AM EST Patient reports concern for breakthrough seizure: Last Visit: 02/19/2024 Next Visit: None scheduled Date and Time of seizure: - 05/16 - last evening while watching TV Crystal panic attacks; was lying in bed; couldn't hear anything; vision felt blurry Eye fluttering She does not believe any jerking/twitching Fiancee was in house - but did not witness No LOC No TB No UI She does not believe she lost awareness Length: unknown She feels this occurred multiple times Crystal some improvement after taking PM ASMs - 05/17 - patient reports some eye fluttering this AM No JAVIER Last seizure: 03/06/2024? Rescue Medication used: No ASM: patient cannot verify doses/parent assists with ASMs Fycompa 4 mg QHS Keppra 3000 mg BID Vimpat 300 mg BID Onfi 20 mg BID Zonisamide 300 mg BID Klonapin 0.5 mg TID Ethosuzimide (Zarontin) 250 mg BID to be taken with food. + VNS Triggers: Reports increased stress Denies other triggers Back to [place]: yes Other: Patient unable to schedule VV today Ambulatory EEG completed Forwarded to [facility] [employer] for review/recommendation Ngoc Joyce RN Per OV of 02/19/2024 01/23/2024: VNS increased to 1.5mA. She has new type of episodes where she feels as if she cannot move ( she calls them panic attacks). We discussed home EEG monitoring. AEDs were continued. Unable to tolerate 1.5mA setting. We decreased the output to 1.25 today. Awaiting home EEG monitoring. PLAN: Continue AEDs at same doses . Fycompa 4 mg QHS . Keppra 3000 mg BID Vimpat 300 mg BID Onfi 20 mg BID Zonisamide 300 mg BID Klonapin 0.5 mg TID Ethosuzimide (Zarontin) 250 mg BID to be taken with food. HomeEEG monitoring pending Future options: if seizures are reasonably controlled, we will reduce Keppra and Vimpat. Attempts to reduce Fycompa resulted in recurrence of seizures. AEDs not tried yet: Lamictal, Xcopri, Epidiolex. Will revisit VNS settings in the future. At this time she is not able to tolerate 1.5mA. [facility]12-16-2024 Telephone encounter Note* Telephone Encounter - Ngoc Joyce RN - 05/17/2024 8:27 AM EST Called patient, no answer. Left message for return call Ngoc Joyce RN [facility]12-12-2024 Telephone encounter Note* Telephone Encounter - Miranda Tadeo RN - 05/13/2024 11:54 AM EST Patient seen in office today for initial Depo injection. Please file CAM order. Thank you. Miranda Tadeo RN [facility]12-12-2024 Miscellaneous Notes* Telephone Encounter - Miranda Tadeo RN - 05/13/2024 11:54 AM EST Patient seen in office today for initial Depo injection. Please file CAM order. Thank you. Miranda Tadeo RN documented in this encounterThe [facility]12-12-2024 Instructions* Patient Instructions* Miranda Tadeo RN - 05/13/2024 11:37 AM EST DEPO-PROVERA control is a way for men and women to prevent . There are many different methods of control; some types also protect against sexually transmitted diseases. Depo-Provera is a control method for women. It is made up of a hormone similar to progesterone and is given as a shot into the woman's arm or buttocks. Each shot provides protection against for up to 14 weeks, but the shot must be received once every 3 months. Depo-Provera does not protect against sexually transmitted diseases. Where can I get Depo-Provera? You must receive the shot from a doctor. The shot is usually given within five days of the beginning of your menstrual period. How is Depo-Provera used? Once the shot has been given, no additional steps are needed to prevent . With Depo-Provera, you must receive another shot once every three months to remain fully protected. How soon does it work? Protection begins immediately after the first shot if given during a menstrual period. How effective is Depo-Provera? Depo-Provera is 99% effective in preventing . Can any woman use Depo-Provera? Most women can use Depo-Provera. However, it is not recommended for women who have: Unexplained vaginal bleeding Liver disease Breast cancer Blood clots Are there side effects associated with Depo-Provera? Depo-Provera can cause a number of side effects, including: Irregular menstrual periods, or no periods at all Headaches Nervousness Depression Dizziness Acne Changes in appetite Weight gain Excessive growth of facial and body hair Hair loss You should discuss the potential side effects of Depo-Provera with your doctor. Most of the side effects are not common. Change in the menstrual cycle is the most common side effect. You may experience irregular bleeding or spotting. After a year of use, about 50% of women will stop getting their periods. Their periods usually return when they discontinue the shots. Can I become after I stop using Depo-Provera? With Depo-Provera, you could become as soon as 12 to 14 weeks after your last shot. It maytake some women up to a year or two to conceive after they stop using this type of control. Does Depo-Provera protect against sexually transmitted diseases? No. To help protect yourself from STDs, use a male condom each time you and your partner have sex. What are the advantages of using Depo-Provera? You don't have to remember to take it every day or use it before sex. It provides long-term protection as long as you get the shot every three months. It doesn't interfere with sexual activity. It's over 99% effective. It's less expensive than the Pill. What are the disadvantages of using Depo-Provera? It can cause unwanted side effects. It does not provide protection against sexually transmitted diseases. It can cause irregular menstrual periods. You need to stop taking Depo-Provera several months ahead of time if you plan to become . Regular doctor visits can be inconvenient. Copyright 4739-5765 The [facility]. All rights reserved This information is provided by the [facility] and is not intended to replace the medical advice of your doctor or health care provider. Please consult your health care provider for advice about a specific medical condition. For additional written health information, please contact the [facility] Center at the [facility] or toll-free extension [phone]. This document was last reviewed on: 2004 documented in this encounterThe [facility] Of [facility]12-12-2024 NoteHNO ID: [id number] Author: MIRANDA TADEO RN Service: ? Author Type: Registered Nurse Type: Progress Notes Filed: 05/13/2024 12:30 Note Text: Patient identified by name and date of . Kiki Ware is here for a Depo Provera injection. Patient brought medication. Date last injected: first injection - negative test. Depo-Provera, 150 mg, administered IM right upper quadrant gluteus, Lot # [id number], expiration date 09/2025. Depo-Provera was given without incident. Date of last menses: No LMP recorded (lmp unknown). Irregular bleeding - No Menses ceased - Yes Medication verified by dispensing pharmacist Patient instructed to return to clinic on 12 weeks. [email or web address] Provider Sheila Hernandez MD was present in office at time of injection. [facility] History of Present illness Narrative* Miranda Tadeo RN - 05/13/2024 11:36 AM EST Patient identified by name and date of . Kiki Ware is here for a Depo Provera injection. Patient brought medication. Date last injected: first injection - negative test. Depo-Provera, 150 mg, administered IM right upper quadrant gluteus, Lot # [id number], expiration date 09/2025. Depo-Provera was given without incident. Date of last menses: No LMP recorded (lmp unknown). Irregular bleeding - No Menses ceased - Yes Medication verified by dispensing pharmacist Patient instructed to return to clinic on 12 weeks. [email or web address] Provider Sheila Hernandez MD was present in office at time of injection. Miranda Tadeo RN documented in this encounterThe [facility]12-02-2024 Telephone encounter Note * Telephone Encounter - Jazlyn Wisdom PA-C - 05/03/2024 4:44 PM EST The following approved medication requests have been transmitted electronically. Requested Prescriptions Signed Prescriptions Disp Refills perampanel (FYCOMPA) 4 mg tablet 90 tablet 0 Sig: Take 1 tablet by mouth daily at bedtime for 90 days. Authorizing Provider: JAZLYN WISDOM PA-C [facility]12-02-2024 Miscellaneous Notes* Telephone Encounter - Jazlyn Wisdom PA-C - 05/03/2024 4:44 PM EST The following approved medication requests have been transmitted electronically. Requested Prescriptions Signed Prescriptions Disp Refills perampanel (FYCOMPA) 4 mg tablet 90 tablet 0 Sig: Take 1 tablet by mouth daily at bedtime for 90 days. Authorizing Provider: JAZLYN WISDOM PA-C * Telephone Encounter - Isabell Gallegos - 05/03/2024 10:27 AM EST Prescription Refill: Requested by: patient Please E-Scribe Caller Contact Number: Pharmacy Name: [facility]acy Number: [phone] Generic/ brand: 30 or 90 day supply requested: 90 Last appointment: 02/19/24 Next Appointment: 05/06/[address] Tellez documented in this encounterThe [facility]12-02-2024 Telephone encounter Note * Telephone Encounter - Isabell Gallegos - 05/03/2024 10:27 AM EST Prescription Refill: Requested by: patient Please E-Scribe Caller Contact Number: Pharmacy Name: [facility]acy Number: [phone] Generic/ brand: 30 or 90 day supply requested: 90 Last appointment: 02/19/24 Next Appointment: 05/06/[address] Tellez [facility]11-27-2024 Telephone encounter Note* Telephone Encounter - Radha Holt RN - 04/28/2024 1:05 PM EST Pt notified and nurse appt made for Depo 05/05/24. Radha Holt RN [facility]11-27-2024 Miscellaneous Notes* Telephone Encounter - Radha Holt RN - 04/28/2024 1:05 PM EST Pt notified and nurse appt made for Depo 05/05/24. Radha Holt RN * Telephone Encounter - Ariel Gutierrez APRN.CNP - 04/28/2024 12:31 PM EST Ok to resume * Telephone Encounter - Miranda Tadeo RN - 04/28/2024 12:25 PM EST Patient states she took x2 pills of the Sprintec and stopped taking because she did not like it. Patient did not elaborate. Asking if she is still protected with the Depo. Advised her last injection was 13w6d and 2 tablets of OCP will not provide protection. She wants to resume Depo. Ok to resume? Will need a new RX and CAM order if appropriate. Miranda Tadeo RN documented in this encounterThe [facility]11-27-2024 Telephone encounter Note * Telephone Encounter - Ariel Gutierrez APRN.CNP - 04/28/2024 12:31 PM EST Ok to resume [facility]11-27-2024 Telephone encounter Note* Telephone Encounter - Miranda Tadeo RN - 04/28/2024 12:25 PM EST Patient states she took x2 pills of the Sprintec and stopped taking because she did not like it. Patient did not elaborate. Asking if she is still protected with the Depo. Advised her last injection was 13w6d and 2 tablets of OCP will not provide protection. She wants to resume Depo. Ok to resume? Will need a new RX and CAM order if appropriate. Miranda Tadeo RN [facility]11-13-2024 Telephone encounter Note* Telephone Encounter - Ariel Gutierrez APRN.CNP - 04/14/2024 7:49 AM EST Noted and agree with nursing advice. Ariel Gutierrez APRN.CNP [facility]11-13-2024 Miscellaneous Notes* Telephone Encounter - Ariel Gutierrez APRN.CNP - 04/14/2024 7:49 AM EST Noted and agree with nursing advice. Ariel Gutierrez APRN.CNP * Telephone Encounter - Nathaniel Mckinney RN - 04/13/2024 12:42 PM EST Patient called in asking for side effects of OCP. States she hasn't started it yet because she is concerned that Depoprovera is still in her system. I did explain to patient side effects of OCP and the importance of not missing any pills or being late and she should begin OCP. Patient states she remembered being counseled about the side effects but couldn't remember..I did send her a [employer] message going over the common questions from [employer]. documented in this encounterThe [facility]11-12-2024 Telephone encounter Note * Telephone Encounter - Nathaniel Mckinney RN - 04/13/2024 12:42 PM EST Patient called in asking for side effects of OCP. States she hasn't started it yet because she is concerned that Depoprovera is still in her system. I did explain to patient side effects of OCP and the importance of not missing any pills or being late and she should begin OCP. Patient states she remembered being counseled about the side effects but couldn't remember..I did send her a [employer] message going over the common questions from [employer]. [facility]10-16-2024 Telephone encounter Note* Telephone Encounter - Alivia Argueta MD - 03/17/2024 4:26 PM EDT Agree with advice [facility] Work Phone: [phone] Miscellaneous Notes* Telephone Encounter - Alivia Argueta MD - 03/17/2024 4:26 PM EDT Agree with advice * Telephone Encounter - Nathaniel Mckinney RN - 03/17/2024 3:46 PM EDT Patient called back again to ask for questions to be answered. I advised patient that she has 12 weeks of protection with Depoprovera injection. If she choses to not get her next injection it can take awhile to get or it may happen quickly, there is no way to know. According to [facility] patient education handout she was also advised she could become as soon as 12 to 14 weeks after her last shot or it could also take up to a year or two to conceive after stopping this type of contraception.All questions answered to her satisfaction. If you have any further advice we can call her back * Telephone Encounter - Radha Holt RN - 03/17/2024 1:41 PM EDT Pt called asking when she got her last Depo shot. Advised last depo shot was given 01/22/24. Pt is asking how long it is in her system and if it is still effective with preventing . When asked if she is trying to get , Pt states Kind of. Pt was switched to OCP on 03/10/24, but states she hasn't started them yet because I'm trying to decide if I want to or not. Please advise. Radha Holt RN documented in this encounterThe [facility]10-16-2024 Telephone encounter Note * Telephone Encounter - Nathaniel Mckinney RN - 03/17/2024 3:46 PM EDT Patient called back again to ask for questions to be answered. I advised patient that she has 12 weeks of protection with Depoprovera injection. If she choses to not get her next injection it can take awhile to get or it may happen quickly, there is no way to know. According to [facility] patient education handout she was also advised she could become as soon as 12 to 14 weeks after her last shot or it could also take up to a year or two to conceive after stopping this type of contraception.All questions answered to her satisfaction. If you have any further advice we can call her back [facility]10-16-2024 Telephone encounter Note* Telephone Encounter - Radha Holt RN - 03/17/2024 1:41 PM EDT Pt called asking when she got her last Depo shot. Advised last depo shot was given 01/22/24. Pt is asking how long it is in her system and if it is still effective with preventing . When asked if she is trying to get , Pt states Kind of. Pt was switched to OCP on 03/10/24, but states she hasn't started them yet because I'm trying to decide if I want to or not. Please advise. Radha Holt RN [facility]10-11-2024 Telephone encounter Note* Telephone Encounter - Patrick Holloway RN - 03/12/2024 11:18 AM EDT [facility] RN Coordination Date of Referral: 03/08/2024 Documentation of Patient Contact: Date: Contact Type: Details: Sign: 03/12/2024 Phone Pt referred to [facility] by Ariel Gutierrez CNP for control options discussion. Called pt, verified name and . Pt reports that she wanted to be on an OCP and Dr. Hernandez prescribed it for her. Pt declines appointment with [facility]. Patrick Holloway RN [facility]10-11-2024 Miscellaneous Notes* Telephone Encounter - Patrick Holloway RN - 03/12/2024 11:18 AM EDT [facility] RN Coordination Date of Referral: 03/08/2024 Documentation of Patient Contact: Date: Contact Type: Details: Sign: 03/12/2024 Phone Pt referred to [facility] by Ariel Gutierrez CNP for control options discussion. Called pt, verified name and . Pt reports that she wanted to be on an OCP and Dr. Hernandez prescribed it for her. Pt declines appointment with [facility]. Patrick Holloway RN documented in this encounterThe [facility]10-09-2024 Telephone encounter Note * Telephone Encounter - Shira Duarte RN - 03/10/2024 3:15 PM EDT Left message to call office. Shira Duarte RN [facility]10-09-2024 Miscellaneous Notes* Telephone Encounter - Shira Duarte RN - 03/10/2024 3:15 PM EDT Left message to call office. Shira Duarte RN * Telephone Encounter - Sheila Hernandez MD - 03/10/2024 2:40 PM EDT rx sent, Can start anytime. Last depo 2 months ago. * Telephone Encounter - Radha Holt RN - 03/10/2024 2:19 PM EDT Last annual 03/05/24 with . Pt agreeable to start OCP. Pt made aware of RR advice and recommendations. Pt is adamant that she does not want to be required to see a specialist in order to get the control. I informed Pt that the Agreeable to writing an Rx for OCP, is an OBGYN. Pt states it is her choice whether or notshe sees a specialist. This RN advised Pt that it is indeed her choice. Advised importance in following the providers advice to make certain it is preventing if that is indeed what she wishes. Radha Holt RN * Telephone Encounter - Sheila Hernandez MD - 03/10/2024 1:18 PM EDT She can be on control pills if she elects. We want to make sure she understands that they arenot as effective at preventing pregnancies in women over 185 lbs according to scientific literatureand they are not as effective in women on seizure medications. In addition, they are not as effective at preventing if they are missed or taken at different times of the day. I would strongly recommend she take a PNV daily and extra folic acid in case there is an unplanned and use condoms as a backup to decrease risks. Sheila Hernandez MD * Telephone Encounter - Zenia Tracy LPN - 03/10/2024 12:55 PM EDT Patient states that her neurologist told her that it ok for her to go off depo provera (noted in mychart message from 03/06/2024. Patient really wants to take a control pill and does not want tohave to see a specialist in order to get control . Pt. Stated if provider is not comfortable prescribing an ocp if a physician at our office would be able to prescribe? Please advise. documented in this encounterThe [facility]10-09-2024 Telephone encounter Note * Telephone Encounter - Sheila Hernandez MD - 03/10/2024 2:40 PM EDT rx sent, Can start anytime. Last depo 2 months ago. [facility]10-09-2024 Telephone encounter Note* Telephone Encounter - Radha Holt RN - 03/10/2024 2:19 PM EDT Last annual 03/05/24 with . Pt agreeable to start OCP. Pt made aware of RR advice and recommendations. Pt is adamant that she does not want to be required to see a specialist in order to get the control. I informed Pt that the Agreeable to writing an Rx for OCP, is an OBGYN. Pt states it is her choice whether or notshe sees a specialist. This RN advised Pt that it is indeed her choice. Advised importance in following the providers advice to make certain it is preventing if that is indeed what she wishes. Radha Holt, TJ [facility]10-09-2024 Telephone encounter Note* Telephone Encounter - Sheila Hernandez MD - 03/10/2024 1:18 PM EDT She can be on control pills if she elects. We want to make sure she understands that they arenot as effective at preventing pregnancies in women over 185 lbs according to scientific literatureand they are not as effective in women on seizure medications. In addition, they are not as effective at preventing if they are missed or taken at different times of the day. I would strongly recommend she take a PNV daily and extra folic acid in case there is an unplanned and use condoms as a backup to decrease risks. Sheila Hernandez MD [facility]10-09-2024 Telephone encounter Note* Telephone Encounter - Zenia Tracy LPN - 03/10/2024 12:55 PM EDT Patient states that her neurologist told her that it ok for her to go off depo provera (noted in [employer] message from 03/06/2024. Patient really wants to take a control pill and does not want tohave to see a specialist in order to get control . Pt. Stated if provider is not comfortable prescribing an ocp if a physician at our office would be able to prescribe? Please advise. [facility]10-07-2024 Telephone encounter Note* Telephone Encounter - Ladan No RN - 03/08/2024 4:08 PM EDT IMPRESSION: Kiki Ware is a 22 year old woman with intractable generalized epilepsy with status epilepticus. She is currently on 7 AEDs and VNS. She had a prolonged hospital stay in August 2022 at [facility] where EEG showed frequent generalized seizures and abundant interictal discharges requiring escalation of AED therapy. Her seizures seemed to respond to Zarontin use which was the last medication added ( previously tried in 2017 but had abdominal pain). 07/16/2023 : Increased VNS from 1 to 1.25 mA. We discussed continued same dose of Fycompa for now at4 mg QHS as lowering doses resulted in absence seizures and drops. ASM levels from Jan 2023 shows normal Keppra, LCM and ZNS levels. 01/23/2024: VNS increased to 1.5mA. She has new type of episodes where she feels as if she cannot move ( she calls them panic attacks). We discussed home EEG monitoring. AEDs were continued. Unable to tolerate 1.5mA setting. We decreased the output to 1.25 today. Awaiting home EEG monitoring. PLAN: Continue AEDs at same doses . Fycompa 4 mg QHS . Keppra 3000 mg BID Vimpat 300 mg BID Onfi 20 mg BID Zonisamide 300 mg BID Klonapin 0.5 mg TID Ethosuzimide (Zarontin) 250 mg BID to be taken with food. HomeEEG monitoring pending Future options: if seizures are reasonably controlled, we will reduce Keppra and Vimpat. Attempts to reduce Fycompa resulted in recurrence of seizures. AEDs not tried yet: Lamictal, Xcopri, Epidiolex. Will revisit VNS settings in the future. At this time she is not able to tolerate 1.5mA. === Seizure Call - spoke with the patient. Last Visit: 02/19/24 Next Visit: 05/06/24 Date and Time of seizure: 03/06 Seizure description: felt unconscious, nausea upon wakening. She had x2 Duration: Witnessed: no Aura: no Last Seizure: TB: no UI: no Rescue Medication used: no ASM: Fycompa 4 mg QHS Keppra 3000 mg BID Vimpat 300 mg BID Onfi 20 mg BID Zonisamide 300 mg BID Klonapin 0.5 mg TID Ethosuzimide (Zarontin) 250 mg BID to be taken with food. Triggers: unsure Back to [place]: yes Other: she has been doing well with VNS and does not want it turned off. It has been going off like crazy and is painful. Has throbbing headaches daily, feels like lightening in her head. Home EEG study on 03/27. She wants to get off Depo shot and possibly take pills instead. Wants to know if okay. Ladan No RN [facility]10-07-2024 Miscellaneous Notes* Telephone Encounter - Ladan No RN - 03/08/2024 4:08 PM EDT IMPRESSION: Kiki Ware is a 22 year old woman with intractable generalized epilepsy with status epilepticus. She is currently on 7 AEDs and VNS. She had a prolonged hospital stay in August 2022 at [facility] where EEG showed frequent generalized seizures and abundant interictal discharges requiring escalation of AED therapy. Her seizures seemed to respond to Zarontin use which was the last medication added ( previously tried in 2017 but had abdominal pain). 07/16/2023 : Increased VNS from 1 to 1.25 mA. We discussed continued same dose of Fycompa for now at4 mg QHS as lowering doses resulted in absence seizures and drops. ASM levels from Jan 2023 shows normal Keppra, LCM and ZNS levels. 01/23/2024: VNS increased to 1.5mA. She has new type of episodes where she feels as if she cannot move ( she calls them panic attacks). We discussed home EEG monitoring. AEDs were continued. Unable to tolerate 1.5mA setting. We decreased the output to 1.25 today. Awaiting home EEG monitoring. PLAN: Continue AEDs at same doses . Fycompa 4 mg QHS . Keppra 3000 mg BID Vimpat 300 mg BID Onfi 20 mg BID Zonisamide 300 mg BID Klonapin 0.5 mg TID Ethosuzimide (Zarontin) 250 mg BID to be taken with food. HomeEEG monitoring pending Future options: if seizures are reasonably controlled, we will reduce Keppra and Vimpat. Attempts to reduce Fycompa resulted in recurrence of seizures. AEDs not tried yet: Lamictal, Xcopri, Epidiolex. Will revisit VNS settings in the future. At this time she is not able to tolerate 1.5mA. === Seizure Call - spoke with the patient. Last Visit: 02/19/24 Next Visit: 05/06/24 Date and Time of seizure: 03/06 Seizure description: felt unconscious, nausea upon wakening. She had x2 Duration: Witnessed: no Aura: no Last Seizure: TB: no UI: no Rescue Medication used: no ASM: Fycompa 4 mg QHS Keppra 3000 mg BID Vimpat 300 mg BID Onfi 20 mg BID Zonisamide 300 mg BID Klonapin 0.5 mg TID Ethosuzimide (Zarontin) 250 mg BID to be taken with food. Triggers: unsure Back to [place]: yes Other: she has been doing well with VNS and does not want it turned off. It has been going off like crazy and is painful. Has throbbing headaches daily, feels like lightening in her head. Home EEG study on 03/27. She wants to get off Depo shot and possibly take pills instead. Wants to know if okay. Ladan No RN * Telephone Encounter - Ladan No RN - 03/08/2024 3:46 PM EDT Called the patient. Left vmm to return call. Ladan No RN [facility] Tele[facility] encounter Note * Telephone Encounter - Ladan No RN - 03/08/2024 3:46 PM EDT Called the patient. Left vmm to return call. Ladan No RN [facility]10-07-2024 Telephone encounter Note* Telephone Encounter - Ariel Gutierrez APRN.CNP - 03/08/2024 1:31 PM EDT Signed. Ariel Gutierrez APRN.SARAH [facility]10-07-2024 Miscellaneous Notes* Telephone Encounter - Ariel Gutierrez APRN.CNP - 03/08/2024 1:31 PM EDT Signed. rAiel Gutierrez APRN.CNP * Telephone Encounter - Sixto Espitia RN - 03/08/2024 1:11 PM EDT Patient called back and still wants to proceed with OCP. Please file order and we can notify patient to schedule. Sixto Espitia RN * Telephone Encounter - Ariel Gutierrez APRN.CNP - 03/08/2024 8:26 AM EDT Please notify patient that I received consult from complex contraception clinic summarized below: Nexplanon does not suppress estrogen levels like Depo so may experience relief from hot flashes with Nexplanon. Progestin dominant is going to be preferred with a history of seizures, as estrogen decreases seizure threshold, versus progestin is protective for the seizure threshold. Nexplanon and Depo likely to control ovulation better than progesterone only pill, if there isn't apattern with her seizures/cycles. As discussed in appt, on several meds for seizures and not well studied with oral contraceptives. Some of these meds may cause decreased effectiveness of OCP. A nonhormonal IUD would be a preferred contraceptive option. Even the more effective contraceptive options such as Nexplanon & Mirena can see a decrease in the progestin levels with concomitant antiseizure med interactions so condom use is recommended. If she still wants OCP, will place complex contraception referral. Ariel Gutierrez APRN.SARAH documented [facility] Telephone encounter Note * Telephone Encounter - Sixto Espitia RN - 03/08/2024 1:11 PM EDT Patient called back and still wants to proceed with OCP. Please file order and we can notify patient to schedule. Sixto Giauque, RN [facility]10-07-2024 Telephone encounter Note* Telephone Encounter - Ariel Gutierrez APRN.CNP - 03/08/2024 8:26 AM EDT Please notify patient that I received consult from complex contraception clinic summarized below: Nexplanon does not suppress estrogen levels like Depo so may experience relief from hot flashes with Nexplanon. Progestin dominant is going to be preferred with a history of seizures, as estrogen decreases seizure threshold, versus progestin is protective for the seizure threshold. Nexplanon and Depo likely to control ovulation better than progesterone only pill, if there isn't apattern with her seizures/cycles. As discussed in appt, on several meds for seizures and not well studied with oral contraceptives. Some of these meds may cause decreased effectiveness of OCP. A nonhormonal IUD would be a preferred contraceptive option. Even the more effective contraceptive options such as Nexplanon & Mirena can see a decrease in the progestin levels with concomitant antiseizure med interactions so condom use is recommended. If she still wants OCP, will place complex contraception referral. Ariel Gutierrez APRN.SARAH [facility]10-04-2024 NoteHNO ID: [id number] Author: DENISE NICHOLS MD Service: ? Author Type: Physician Type: Progress Notes Filed: 03/05/2024 17:41 Note Text: Not billed to patient/insurance. I spent a total of 12 minutes on the date of the service which included completing clinical documentation, communicating with other HCPs (not separately reported), and independently interpreting results (not separately reported) [facility]10-04-2024 History of Present illness Narrative* Denise Nichols MD - 03/05/2024 5:41 PM EDT Not billed to patient/insurance. I spent a total of 12 minutes on the date of the service which included completing clinical documentation, communicating with other HCPs (not separately reported), and independently interpreting results (not separately reported) * Denise Nichols MD - 03/05/2024 5:13 PM EDT E-consult question: Kiki really wants to be on a control pill, but has history of epilepsy and takes Onfi. What are the safest forms of control for her? E-consult response: Reviewed notes. She was on Depo (favored due to contraceptive effectiveness and decreasing seizure threshold), but had hot flashes. Clinician offered Nexplanon, but she really preferred an OCP. Nexplanon is a great choice, as it does not suppress estrogen levels like Depo does, so many patients arehappy that they do not have hot flashes with this option. I have also offered Depo and use low-dose postmenopausal hormone therapy patch options to help alleviate hot flashes (and minimize bone loss). In general, any option that is progestin dominant is going to be preferred with a history of seizures, as estrogen decreases seizure threshold, versus progestin is protective for the seizure threshold. If patient does have any menstrual cyclical nature to her seizures, options such as Depo and Nexplanon help because they prevent ovulation more effectively than progestin only pills. Though not compared [id number], Slynd probably does a better job of controlling ovulation compared to norethindrone 0.35 mg progestin only pills (such as [place]). Patient is on several medications for seizure co ntrol, many of them that are not well studied with oral contraceptives. Keppra has minimal interaction with OCP, but the others may decrease effectiveness. Thus, it's important to seriously think about the risks of unintended in someone so young -the option patients are likely to use long-term of the ones that they prefer. A nonhormonal IUD would be a preferred contraceptive option. If any estrogen-containing options are chosen, it would be important to engage in shared decision making with the neurologist. I would also favor options that have lower estrogen dosing, 20 mcg or less (to not negatively impact seizure threshold), though it certainly is a trade off because contraceptive efficacy may decrease as the dose is lowered. Unless the patient is using a copper IUD, I would recommend consistent use of an additional barrier method in addition to whatever else she chooses. Even the more effective contraceptive options such as Nexplanon & Mirena can see a decrease in the progestin levels with concomitant antiseizure med interactions. The situations are always difficult,and require detailed counseling. Patient can also be referred to complex contraception clinic to reinforce recommendations that you have provided. Denise Nichlos MD documented in this encounterThe [facility]24 NoteHNO ID: [id number] Author: DENISE NICHOLS MD Service: ? Author Type: Physician Type: Progress Notes Filed: 03/05/2024 17:41 Note Text: E-consult question: Kiki really wants to be on a control pill, but has history of epilepsy and takes Onfi. What are the safest forms of control for her? E-consult response: Reviewed notes. She was on Depo (favored due to contraceptive effectiveness and decreasing seizure threshold), but had hot flashes. Clinician offered Nexplanon, but she really preferred an OCP. Nexplanon is a great choice, as it does not suppress estrogen levels like Depo does, so many patients are happy that they do not have hot flashes with this option. I have also offered Depo and use low-dose postmenopausal hormone therapy patch options to help alleviate hot flashes (and minimize bone loss). In general, any option that is progestin dominant is going to be preferred with a history of seizures, as estrogen decreases seizure threshold, versus progestin is protective for the seizure threshold. If patient does have any menstrual cyclical nature to her seizures, options such as Depo and Nexplanon help because they prevent ovulation more effectively than progestin only pills. Though not compared [id number], Slynd probably does a better job of controlling ovulation compared to norethindrone 0.35 mg progestin only pills (such as [place]). Patient is on several medications for seizure control, many of them that are not well studied with oral contraceptives. Keppra has minimal interaction with OCP, but the others may decrease effectiveness. Thus, it's important to seriously think about the risks of unintended in someone so young -the option patients are likely to use long-term of the ones that they prefer. A nonhormonal IUD would be a preferred contraceptive option. If any estrogen-containing options are chosen, it would be important to engage in shared decision making with the neurologist. I would also favor options that have lower estrogen dosing, 20 mcg or less (to not negatively impact seizure threshold), though it certainly is a trade off because contraceptive efficacy may decrease as the dose is lowered. Unless the patient is using a copper IUD, I would recommend consistent use of an additional barrier method in addition to whatever else she chooses. Even the more effective contraceptive options such as Nexplanon AND Mirena can see a decrease in the progestin levels with concomitant antiseizure med interactions. The situations are always difficult, and require detailed counseling. Patient can also be referred to complex contraception clinic to reinforce recommendations that you have provided. Denise Nichols, [facility]10-04-2024 NoteHNO ID: [id number] Author: ARIEL GUTIERREZ APRN.MEDICAL OFFICE COORDINATOR Service: ? Author Type: Nurse Practitioner Type: Progress Notes Filed: 03/05/2024 16:59 Note Text: Kiki Ware is a 23 year old female who presents for problem visit to discuss contraception. HPI: Kiki is here to discuss contraception. She is currently using Depo. Reports too many side effects from it. When asked about the side effects, she reports hot flashes. Considering Nexplanon, but really wants OCP. Also concerned for . 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 year old PAST SURGICAL HISTORY Procedure Laterality Date DELIVERY ONLY 09/24/2022 [facility] PAST SURGICAL HISTORY OF VNS implant, vagal nerve stimulator- approx in 2016 FAMILY HISTORY Problem Relation Age of Onset No Known Problems Father Thyroid Cancer Mother No Known Problems Brother Asthma Brother outgrown asthma Allergies Brother other (drug overdose) Brother other (MVA) Brother Allergies Brother No Known Problems Sister other (retina cancer) Maternal Grandfather Uterine Cancer Maternal Grandmother No Known Problems Paternal Grandfather COPD Paternal Grandmother Diabetes Maternal Aunt Social History Tobacco Use Smoking status: Never Passive exposure: Current Smokeless tobacco: Never Tobacco comments: smoking outside per mom Vaping Use Vaping status: Never Used Substance Use Topics Alcohol use: Not Currently Drug use: Not Currently Types: Marijuana Current Outpatient Medications Medication Sig zonisamide (ZONEGRAN) 100 mg capsule Take 3 capsules by mouth two times a day. clonazePAM (KLONOPIN) 0.5 mg tablet Take 1 tablet by mouth three times a day for 180 days. ethosuximide (ZARONTIN) 250 mg capsule Take 1 capsule by mouth two times a day. lacosamide (VIMPAT) 150 mg tab Take 2 tablets by mouth two times a day for 180 days. levETIRAcetam (KEPPRA) 1,000 mg tablet Take 3 tablets by mouth two times a day. perampanel (FYCOMPA) 4 mg tablet Take 1 tablet by mouth daily at bedtime for 90 days. medroxyPROGESTERone (DEPO-PROVERA) 150 mg/mL Inject 1 mL intramuscularly every 12 weeks. cloBAZam (ONFI) 10 mg tab tablet Take 2 tablets by mouth two times a day for 180 days. folic acid 1 mg tablet Take 2 tablets by mouth twice daily. Current Facility-Administered Medications Medication Dose Route Frequency medroxyPROGESTERone 150 mg injection (DEPO-PROVERA) 150 mg INTRAMUSCULAR every 12 weeks Allergies As of Date: 03/05/2024 Allergen Noted Reaction DEPAKOTE [DIVALPROEX] 07/23/2021 Other: See Comments Fully Assessed 03/05/2024 REVIEW OF SYSTEMS Expanded ROS: JOURNEYMAN PLUMBER: + hot flashes Allergies and current medication updated:Yes SENSITIVE EXAM: Sensitive exam not performed. EXAM: BP 118/74 Wt 202 lb 6.4 oz (91.8kg) GENERAL: pleasant, female in no apparent distress CHEST: Normal inspiratory effort NEURO: alert and oriented x3,exam grossly non-focal EXTREMITIES: normal ASSESSMENT AND PLAN: 1. Encounter for other general counseling or advice on contraception - ICD9: V25.09, ICD10: Z30.09 (primary diagnosis) - Discussed with patient that hot flashes may be related to other medications or problems - Recommend IUD as safest option. - Kiki really wants OCP. I do not recommend this option at this time due to concern of decrease effectiveness of OCP with multiple medications for epilepsy - Recommend long acting contraception. Reviewed risks of with epilepsy - Discussed r/b of Nexplanon vs IUD vs pill - Will place complex contraception clinic for further guidance and information for patient - Nexplanon insertion order placed in case patient decides on this - Urine HCG negative Ariel Gutierrez APRN.SARAH Medical Decision Making: Problems: Minimal: Self-limited or minor problem Risk: Low: Low risk from testing/treatment Moderate: Drug management Medical Decision Making Level: 2 - [facility] History of Present illness Narrative* Ariel Gutierrez APRN.SARAH - 03/05/2024 4:18 PM EDT Kiki Ware is a 23 year old female who presents for problem visit to discuss contraception. HPI: Kiki is here to discuss contraception. She is currently using Depo. Reports too many side effects from it. When asked about the side effects, she reports hot flashes. Considering Nexplanon, but really wants OCP. Also concerned for . 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 year old PAST SURGICAL HISTORY Procedure Laterality Date DELIVERY ONLY 09/24/2022 [facility] PAST SURGICAL HISTORY OF VNS implant, vagal nerve stimulator- approx in 2016 FAMILY HISTORY Problem Relation Age of Onset No Known Problems Father Thyroid Cancer Mother No Known Problems Brother Asthma Brother outgrown asthma Allergies Brother other (drug overdose) Brother other (MVA) Brother Allergies Brother No Known Problems Sister other (retina cancer) Maternal Grandfather Uterine Cancer Maternal Grandmother No Known Problems Paternal Grandfather COPD Paternal Grandmother Diabetes Maternal Aunt Social History Tobacco Use Smoking status: Never Passive exposure: Current Smokeless tobacco: Never Tobacco comments: smoking outside per mom Vaping Use Vaping status: Never Used Substance Use Topics Alcohol use: Not Currently Drug use: Not Currently Types: Marijuana Current Outpatient Medications Medication Sig zonisamide (ZONEGRAN) 100 mg capsule Take 3 capsules by mouth two times a day. clonazePAM (KLONOPIN) 0.5 mg tablet Take 1 tablet by mouth three times a day for 180 days. ethosuximide (ZARONTIN) 250 mg capsule Take 1 capsule by mouth two times a day. lacosamide (VIMPAT) 150 mg tab Take 2 tablets by mouth two times a day for 180 days. levETIRAcetam (KEPPRA) 1,000 mg tablet Take 3 tablets by mouth two times a day. perampanel (FYCOMPA) 4 mg tablet Take 1 tablet by mouth daily at bedtime for 90 days. medroxyPROGESTERone (DEPO-PROVERA) 150 mg/mL Inject 1 mL intramuscularly every 12 weeks. cloBAZam (ONFI) 10 mg tab tablet Take 2 tablets by mouth two times a day for 180 days. folic acid 1 mg tablet Take 2 tablets by mouth twice daily. Current Facility-Administered Medications Medication Dose Route Frequency medroxyPROGESTERone 150 mg injection (DEPO-PROVERA) 150 mg INTRAMUSCULAR every 12 weeks Allergies As of Date: 03/05/2024 Allergen Noted Reaction DEPAKOTE [DIVALPROEX] 07/23/2021 Other: See Comments Fully Assessed 03/05/2024 REVIEW OF SYSTEMS Expanded ROS: JOURNEYMAN PLUMBER: + hot flashes Allergies and current medication updated:Yes SENSITIVE EXAM: Sensitive exam not performed. EXAM: BP 118/74 Wt 202 lb 6.4 oz (91.8kg) GENERAL: pleasant, female in no apparent distress CHEST: Normal inspiratory effort NEURO: alert and oriented x3,exam grossly non-focal EXTREMITIES: normal ASSESSMENT AND PLAN: 1. Encounter for other general counseling or advice on contraception - ICD9: V25.09, ICD10: Z30.09 (primary diagnosis) - Discussed with patient that hot flashes may be related to other medications or problems - Recommend IUD as safest option. - Sunjovanny really wants OCP. I do not recommend this option at this time due to concern of decreaseeffectiveness of OCP with multiple medications for epilepsy - Recommend long acting contraception. Reviewed risks of with epilepsy - Discussed r/b of Nexplanon vs IUD vs pill - Will place complex contraception clinic for further guidance and information for patient - Nexplanon insertion order placed in case patient decides on this - Urine HCG negative Ariel Gutierrez APRN.SARAH Medical Decision Making: Problems: Minimal: Self-limited or minor problem Risk: Low: Low risk from testing/treatment Moderate: Drug management Medical Decision Making Level: 2 - Straightforward [facility] [facility] Note * Telephone Encounter - Ladan No RN - 03/04/2024 11:52 AM EDT 01/23/2024: VNS increased to 1.5mA. She has new type of episodes where she feels as if she cannot move ( she calls them panic attacks). We discussed home EEG monitoring. AEDs were continued. Unable to tolerate 1.5mA setting. We decreased the output to 1.25 today. Awaiting home EEG monitoring. PLAN: Continue AEDs at same doses . Fycompa 4 mg QHS . Keppra 3000 mg BID Vimpat 300 mg BID Onfi 20 mg BID Zonisamide 300 mg BID Klonapin 0.5 mg TID Ethosuzimide (Zarontin) 250 mg BID to be taken with food. HomeEEG monitoring pending Future options: if seizures are reasonably controlled, we will reduce Keppra and Vimpat. Attempts to reduce Fycompa resulted in recurrence of seizures. AEDs not tried yet: Lamictal, Xcopri, Epidiolex. Will revisit VNS settings in the future. At this time she is not able to tolerate 1.5mA. ===== Ladan No RN [facility]10-03-2024 Miscellaneous Notes* Telephone Encounter - Ladan No RN - 03/04/2024 11:52 AM EDT 01/23/2024: VNS increased to 1.5mA. She has new type of episodes where she feels as if she cannot move ( she calls them panic attacks). We discussed home EEG monitoring. AEDs were continued. Unable to tolerate 1.5mA setting. We decreased the output to 1.25 today. Awaiting home EEG monitoring. PLAN: Continue AEDs at same doses . Fycompa 4 mg QHS . Keppra 3000 mg BID Vimpat 300 mg BID Onfi 20 mg BID Zonisamide 300 mg BID Klonapin 0.5 mg TID Ethosuzimide (Zarontin) 250 mg BID to be taken with food. HomeEEG monitoring pending Future options: if seizures are reasonably controlled, we will reduce Keppra and Vimpat. Attempts to reduce Fycompa resulted in recurrence of seizures. AEDs not tried yet: Lamictal, Xcopri, Epidiolex. Will revisit VNS settings in the future. At this time she is not able to tolerate 1.5mA. ===== Ladan No RN [facility] NoteHNO ID: [id number] Author: RUBEN TELLEZ MD Service: ? Author Type: Physician Type: Progress Notes Filed: 02/19/2024 15:02 Note Text: [facility] Patient Name: Kiki Ware Date of : 2000 ESTABLISHED EPILEPSY CLINIC NOTE 02/19/2024 2:00 PM Reason for Visit: Established Patient, Follow Up, and VNS Visit Clinical Summary: Ms. Ware is a 22 year old right-handed female seen in [facility]. At today's visit, the patient is accompanied by: father 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 Mother reports that she was at school. A week later she experienced another one. She did not experience another one until she was 12 year old when she experienced a prolonged GTC seizure for 10 minutes. AT that time she was started on Keppra. Keppra decreased the frequency of GTC seizures but AEDs were changed or added overtime. Mother thinks that when Depakote was added seizures became better controlled. Levels were high at some point and AEDs changes continued to be made: Mother reports different seizure types overtime: 1.GTC seizures, her last one was 2 years ago 2. Eye fluttering with absence at times that they can occur daily. They can occur daily. These episodes began at age [age] year old 3. Head drops for few seconds. She may fall or not with these events. No LOC. These events can occur 2-3 times a week. 4. Arms jerks or whole body jerks that can happen when she is watching TV or sleeping. They may occur daily as well. She bejarano snot recall when did she began experiencing them. Patient was admitted to [facility] with Breakthrough seizures a few days after she delivered her baby in August 2022. Hospital stay was complicated by multiple clusters of generalized seizures (most of them untested, but was dialeptic with eye lid fluttering when tested). Several AED changes were made eventually adding Ethosuximide. Nexplanon was explanted and Depo-provera was used in its place as patient felt that her seizures were worse after nexplanon. AED changes during 08/2022 admission Keppra 4000 mg BID -> 2000 mg BID (10/01/2022)-> 3000 BID (10/03/2022) Level elevated at 113.5 on 09/29/2022 Onfi 20 mg BID level normal on 09/26/2022 Zonisamide 300 mg BID level normal on 09/26 Vimpat 250 mg BID level normal on 09/26-> 300 BID (10/03/2022) Fycompa (perampanel) 2mg started 09/30/2022-> 4 mg (10/02/2022) [ bolus of 8 mg given on 10/01/2022]-> 6mg [10/03] VPA 250 BID [10/02/2022]-> D/C 10/06/2022 Ammonia levels were elevated. Klonapin 0.5 mg BID [ 10/03]-> 0.5 mg TID [10/04/2022] Zarontin 250 mg BID [10/04/2022] Current AEDs ? Keppra 3000 mg BID ? Vimpat 300 mg BID ? Onfi 20 mg BID ? Zonisamide 300 mg BID ? Fycompa 4 mg QHS ? Klonapin 0.5 mg TID ? Ethosuzimide (Zarontin) 250 mg BID to be taken with food. Folic acid 1 mg daily VNS implanted in Jan 2017 Patient was unable to finish high school due to frequenct seizures. Mother reports that she used to be in an accelarated class in the past. 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 In 2016 she received IV steroids Interval Seizure History During last visit,VNS Output was increased from 1.25 to 1.5 ( magnet from 1.5 to 1.75). She has been experiencing pain and difficulty breathing at these settings. Total # of Current Anti-seizure Medications: Side Effects to Current Anti-seizure Medications: Seizure Frequency at First Visit: 3 per day Longest Seizure-free Interval: 4 years Number of seizure types: 4 Hx of generalized tonic-clonic seizures: Yes Status Epilepticus or clusters: No Postictal Agitation: No Driving: No Lives Alone: No CURRENT OUTPATIENT ANTISEIZURE MEDICATIONS (as of the start of the encounter) zonisamide (ZONEGRAN) 100 mg capsule (Taking) Take 3 capsules by mouth two times a day. clonazePAM (KLONOPIN) 0.5 mg tablet (Taking) Take 1 tablet by mouth three times a day for 180 days. ethosuximide (ZARONTIN) 250 mg capsule (Taking) Take 1 capsule by mouth two times a day. lacosamide (VIMPAT) 150 mg tab (Taking) Take 2 tablets by mouth two times a day for 180 days. levETIRAcetam (KEPPRA) 1,000 mg tablet (Taking) Take 3 tablets by mouth two times a day. perampanel (FYCOMPA) 4 mg tablet (Taking) Take 1 tablet by mouth daily at bedtime for 90 days. cloBAZam (ONFI) 10 mg tab tablet (Taking) Take 2 tablets by mouth two times a day for 180 days. Prior Anti-seizure Therapies: Trial Adequacy: Max Daily Dose Achieved: Side Effects: Effectiveness: Comments: Clobazam Ethosuximide Lacos (more content not included)...[facility]09-19-2024 History of Present illness Narrative* Ruben Tellez MD - 02/19/2024 2:56 PM EDT Images from the original note were not included. [facility] Patient Name: Kiki Ware Date of : 2000 ESTABLISHED EPILEPSY CLINIC NOTE 02/19/2024 2:00 PM Reason for Visit: Established Patient, Follow Up, and VNS Visit Clinical Summary: Ms. Ware is a 22 year old right-handed female seen in [facility]. At today's visit, the patient is accompanied by: father 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 Mother reports that she was at school. A week later she experienced another one. She did not experience another one until she was 12 year old when she experienced a prolonged GTC seizure for 10 minutes. AT that time she was started on Keppra. Keppra decreased the frequency of GTCseizures but AEDs were changed or added overtime. Mother thinks that when Depakote was added seizures became better controlled. Levels were high at some point and AEDs changes continued to be made: Mother reports different seizure types overtime: 1.GTC seizures, her last one was 2 years ago 2. Eye fluttering with absence at times that they can occur daily. They can occur daily. These episodes began at age [age] year old 3. Head drops for few seconds. She may fall or not with these events. No LOC. These events can occur 2-3 times a week. 4. Arms jerks or whole body jerks that can happen when she is watching TV or sleeping. They may occur daily as well. She bejarano snot recall when did she began experiencing them. Patient was admitted to [facility] with Breakthrough seizures a few days after she delivered matty in August 2022. Hospital stay was complicated by multiple clusters of generalized seizures (most of them untested, but was dialeptic with eye lid fluttering when tested). Several AED changes weremade eventually adding Ethosuximide. Nexplanon was explanted and Depo-provera was used in its placeas patient felt that her seizures were worse after nexplanon. AED changes during 08/2022 admission Keppra 4000 mg BID -> 2000 mg BID (10/01/2022)-> 3000 BID (10/03/2022) Level elevated at 113.5 on 09/29/2022 Onfi 20 mg BID level normal on 09/26/2022 Zonisamide 300 mg BID level normal on 09/26 Vimpat 250 mg BID level normal on 09/26-> 300 BID (10/03/2022) Fycompa (perampanel) 2mg started 09/30/2022-> 4 mg (10/02/2022) [ bolus of 8 mg given on 10/01/2022]-> 6mg [10/03] VPA 250 BID [10/02/2022]-> D/C 10/06/2022 Ammonia levels were elevated. Klonapin 0.5 mg BID [ 10/03]-> 0.5 mg TID [10/04/2022] Zarontin 250 mg BID [10/04/2022] Current AEDs Keppra 3000 mg BID Vimpat 300 mg BID Onfi 20 mg BID Zonisamide 300 mg BID Fycompa 4 mg QHS Klonapin 0.5 mg TID Ethosuzimide (Zarontin) 250 mg BID to be taken with food. Folic acid 1 mg daily VNS implanted in Jan 2017 Patient was unable to finish high school due to frequenct seizures. Mother reports that she used to be in an accelarated class in the past. 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 In 2016 she received IV steroids Interval Seizure History During last visit,VNS Output was increased from 1.25 to 1.5 ( magnet from 1.5 to 1.75). She has been experiencing pain and difficulty breathing at these settings. Total # of Current Anti-seizure Medications: Side Effects to Current Anti-seizure Medications: Seizure Frequency at First Visit: 3 per day Longest Seizure-free Interval: 4 years Number of seizure types: 4 Hx of generalized tonic-clonic seizures: Yes Status Epilepticus or clusters: No Postictal Agitation: No Driving: No Lives Alone: No CURRENT OUTPATIENT ANTISEIZURE MEDICATIONS (as of the start of the encounter) zonisamide (ZONEGRAN) 100 mg capsule (Taking) Take 3 capsules by mouth two times a day. clonazePAM (KLONOPIN) 0.5 mg tablet (Taking) Take 1 tablet by mouth three times a day for 180 days. ethosuximide (ZARONTIN) 250 mg capsule (Taking) Take 1 capsule by mouth two times a day. lacosamide (VIMPAT) 150 mg tab (Taking) Take 2 tablets by mouth two times a day for 180 days. levETIRAcetam (KEPPRA) 1,000 mg tablet (Taking) Take 3 tablets by mouth two times a day. perampanel (FYCOMPA) 4 mg tablet (Taking) Take 1 tablet by mouth daily at bedtime for 90 days. cloBAZam (ONFI) 10 mg tab tablet (Taking) Take 2 tablets by mouth two times a day for 180 days. Prior Anti-seizure Therapies: Trial Adequacy: Max Daily Dose Achieved: Side Effects: Effectiveness: Comments: Clobazam Ethosuximide Lacosamide Levetiracetam Perampanel Vagal Nerve Stimulation Valproate hyperammonemia Zonisamide Clonazepam Comorbidities: None Episode Description: SEIZURE TYPE 1: GTC Onset: 8 YO Aura: no Loss of awareness: Duration: Frequency: Last occurred: yes less than a minute SEIZURE TYPE 2: absence Onset: 17 yo Aura: no Loss of awareness: Duration: Frequency: Last occurred: yes less than a minute SEIZURE TYPE 3: head drop Onset: 20 yo Loss of awareness: Duration: Frequency: Last occurred: no less than a minute SEIZURE TYPE 4: myoclonic jerks Onset: 20 yo Aura: no Loss of awareness: Duration: Frequency: Last occurred: no less than a minute Patient Entered Data: EPILEPSY SCORE 01/13/2023 1:54 PM 09/20/2022 1:40 PM 08/13/2022 2:51 PM First answer obtained - 02/12/2022 2:49 PM PHQ-9 SCORE 0 [None-Minimal Depression] 0 [None-Minimal Depression] 0 [None- Minimal Depression] - GEORGE 2 SCORE 0 [Negative Anxiety Screen] 0 [Negative Anxiety Screen] 0 [Negative Anxiety Screen] - GEORGE 7 SCORE - - - - QOLIE-10 SCORE (0=worst; 100=best QoL - higher scores represent better function) 12 11 11 - LSSS SCORE (0- no seizures 100- most severe possible seizures) - - - - C-SSRS SCREEN - - - - On average, how many hours of sleep do you get in a 24-hour period? - - - - PROMIS Sleep Disturbance T-SCORE - - - 37 [within normal limits] Have you been diagnosed with Sleep Apnea? - - - - Seizure risk factors: Brain Tumor No HAT BINDER Infections No Developmental Delay No Family history of seizures No Febrile Seizure Unanswered Complications Yes Stroke No Traumatic Brain Injury Yes Previous Epilepsy Evaluations Bedside [facility] 09/2022 Continuous Video-EEG was reviewed from 042 on 10/06/22 to 423 on 10/07/22 and is suggestive of a bilateral cortical dysfunction maximum in the left hemisphere and generalized epileptogenicity. There was one generalized EEG seizures seen in this recording at 0842 on 10/06/22 lasting 3 minutes 30 seconds with clinical signs of apparent decreased responsiveness/starring off (patient was not tested during the time). There is also evidence of a moderate diffuse encephalopathy. Routine EEG ([facility], 09/08/2020): During this awake and sleep epoch of continuous digital EEG/Video monitoring with scalp electrodes, the EEG was abnormal due to the presence of mild diffuse background slowing, excess of low voltage fast activity(medication related) and frequent, most likely interictal bursts of waxing and waning generalized, irregular polyspike and slow ave discharges while awake and asleep and high voltage runs of paroxysmal fast activity seen when asleep. No unequivocal seizures were recorded. 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 Video EEG ([facility], 12/16 - 12/19/2019): Abundant generalized 2.0-2.5 Hz sharp and slow wave seizures, as well as bursts of generalized beta- and gamma-frequency spikes during sleep, are consistent with a primary generalized epilepsy, such as Paul-Gastaut Sydnrome. Electrical status epilepticus of sleep (ESES) was not seen. Video EEG ([facility], 03/15/2019): During 25 hours and 50 minutes of continuous digital EEG/Video monitoring with scalp electrodes, the EEG was abnormal given the presence of intermittent background theta slowing, drowsiness and sleep activated spike/polyspike and slow wave complexes and bursts of paroxysmal generalized fast activity noted during NREM sleep. Given the electrographic features, the patten of the paroxysmal fast activity likely represented subclinical seizures. In comparison to previous EEGs, the background was improved with the distinct lack of spike/polyspike and slow wave complexes noted during wakefulness. The fast activity bursts in sleep have a relatively similar morphology and frequency as noted in prior studies. These findings are consistent with the patients known history of refractory generalized epilepsy with overall background improvement during wakefulness. Video EEG ([facility], 09/01/2017): During 20 hours and 42 minutes of continuous digital EEG/Video monitoring with scalp electrodes, the EEG was abnormal given the presence of sleep activated generalized bursts of fast repetitive spikes along with polyspike>spike and slow wave complexes. The morphology and electrographic evolution with after going slowing most likely represented subclinical seizures during sleep. In comparison to previous EEGs, consistent findings were noted during this study as the patients last study in 05/2017. No new events of concern were recorded. These findings are consistent with her known history of refractory generalized epilepsy. Video EEG ([facility], 05/06/2017): During 21 hours and 2 minutes of continuous digital EEG/Video monitoring with scalp electrodes, the EEG was abnormal due to the presence of sleep activated paroxysmal bursts of fast repetitive spikes and spike/polyspike and slow wave complexes, which due to e lectrographic evolution and aftermath slowing most likely represent subclinical seizures. In comparison to previous EEGs, this study showed significant improvement with the lack of interictal discharges in the awake background, but the sleep portion showed only mild improvement in the frequency and duration of the discharges. These findings are consistent with her known history of refractory generalized epilepsy with overall improvement on current treatment. Video EEG ([facility], 01/25/2017): During 29 hours of continuous digital EEG/Video monitoringwith scalp electrodes, the EEG was abnormal given the presence of 1. Diffuse background slowing 2. Numerous subclinical seizures during wakefulness and sleep 3. Frequent runs of epileptiform discharges composed of polyspike/spike and slow wave in addition to sleep activated bursts of paroxysmal fast activity. In comparison to previous EEGs, there was no significant changes in the ictal and interictal discharges. 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 Video EEG ([facility], 08/23/2016): During 61 hours and 44 minutes of continuous digital EEG/Video monitoring with scalp electrodes, the EEG was severely abnormal due to the presence of: 1. Reoccurring subclinical seizures during awake (Type A) and sleep (Type B), characterized by different electrographic patterns (see ictal above) 2. Polyspike and slow wave discharges 3. Diffuse background slowing The patient received IV dose of Vimpat with a subtle--brief--improvement in the EEG pattern. Depakote was discontinued. These findings could be seen in patient's with epileptic encephalopathy and areconsistent with an active, refractory generalized epilepsy. Video EEG ([facility], 08/06/2016): During 22 hours of continuous digital EEG/Video monitoring with scalp electrodes, the EEG was Abnormal. One clinical seizure was observed consisting of confusion and atypical 1-2hz spike wave discharges lasitng 21. In sleep multiple subclincal bursts of generalized spike followed by 20 hz actiity lasting 3-5 sec are observed. In addition multiple burst of difuse beta as seen below are noted not associated with clincal change. EEG (02/29/16): INTERPRETATION: This is an abnormal awake and asleep EEG. The atypical spike wave pattern is consistant with a primary generalized seizure disorder. Video EEG ([facility], 02/12/2016): During 41 hour 45 minutes of continuous digital EEG/Video monitoring with scalp electrodes, the EEG was abnormal due to the presence of recurring subclinical seizures and generalized polyspike and slow wave discharges occurring interictally. There were a fewseizures associated with subtle myoclonic jerks and delays in response. One event of room shaking was captured and was not associated with any change on the EEG background, therefore was not epileptic in the origin. In comparison to the previous EEG, similar interictal discharge was noted with improvement during the first day of the stay and subsequent increase in frequency during the rest of the stay. No Electrical Status Epilepticus of slow wave Sleep was seen, although the morphology of the discharges was composed predominantly of polyspikes, while before it was a mixture of spike and polyspike-slow wave complexes. The patient received a treatment of a high dose IV steroids over 3 day admission without a significant improvement in the EEG pattern. These findings are consistent with an active, refractory generalized epilepsy. Video EEG ([facility], 12/04-12/08/2015): During 65 hours and 54 minutes of continuous digital EEG/Video monitoring with scalp electrodes, the EEG was abnormal due to: Multiple myoclonic seizures Electrical status epilepticus of sleep comprised of ~80% of her slow wave sleep. Frequent and long runs of generalized spike/ polyspike and slow wave discharges with a bifrontal maximum. Posterior dominant rhythm <8 Hz. Numerous patient events were captured when the patient reported to have eye flutter, headache and staring, but it was difficult to associate clinical correlate with the EEG due to very frequent interictal discharges and timing of epileptiform burst and button push. At times, there were no epileptiform discharges noted during the episode raising concern of all those events to be non epileptic. In comparison to previous EEGs, similar discharges were noted and appeared to increase in frequency. This is consistent with epileptic seizures of a generalized mechanism and epileptic encephalopathy. Routine EEG ([facility], 03/22/14): This is an abnormal awake and asleep EEG due to very frequent generalized polyspikes, spike-wave complexes and EEG seizure pattern that developed during photic stimulation. This EEG is indicative of an active generalized epilepsy. MRI brain wo contrast ([facility], 01/23/2016): unremarkable exam MRI brain wo contrast ([facility], 03/22/2014): Limited exam due to patient motion. No gross intracranial abnormalities identified. CT head wo contrast ([facility], 11/28/2019): No acute intracranial abnormality Other caregivers: Primary Care Provider: No primary care provider on file. Current Outpatient Medications Medication Sig zonisamide (ZONEGRAN) 100 mg capsule Take 3 capsules by mouth two times a day. clonazePAM (KLONOPIN) 0.5 mg tablet Take 1 tablet by mouth three times a day for 180 days. ethosuximide (ZARONTIN) 250 mg capsule Take 1 capsule by mouth two times a day. lacosamide (VIMPAT) 150 mg tab Take 2 tablets by mouth two times a day for 180 days. levETIRAcetam (KEPPRA) 1,000 mg tablet Take 3 tablets by mouth two times a day. perampanel (FYCOMPA) 4 mg tablet Take 1 tablet by mouth daily at bedtime for 90 days. medroxyPROGESTERone (DEPO-PROVERA) 150 mg/mL Inject 1 mL intramuscularly every 12 weeks. cloBAZam (ONFI) 10 mg tab tablet Take 2 tablets by mouth two times a day for 180 days. folic acid 1 mg tablet Take 2 tablets by mouth twice daily. 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 year old PAST SURGICAL HISTORY Procedure Laterality Date DELIVERY ONLY 09/24/2022 LTCS PAST SURGICAL HISTORY OF VNS implant, vagal nerve stimulator- approx in 2016 FAMILY HISTORY Problem Relation Age of Onset No Known Problems Father Thyroid Cancer Mother No Known Problems Brother Asthma Brother outgrown asthma Allergies Brother other (drug overdose) Brother other (MVA) Brother Allergies Brother No Known Problems Sister other (retina cancer) Maternal Grandfather Uterine Cancer Maternal Grandmother No Known Problems Paternal Grandfather COPD Paternal Grandmother Diabetes Maternal Aunt SOCIAL HISTORY: -Lives in [place], [place] -Patient lives alone? No -Vocation: -Education: -Cigarette, alcohol, substance use: -Functional status: independent in activities of daily living -Patient driving? No Review of Systems All other systems reviewed and are negative. VITAL SIGNS: BP 109/63 (BP Site: Left Arm, BP Position: Sitting, BP Cuff Size: Large Adult) Pulse 106 Ht 160cm (5' 3) Wt 89.8 kg (198 lb) LMP 01/05/2024 (Exact Date) SpO2 97% BMI 35.07 kg/m General Examination: She is accompanied by significant other. General: Awake, alert, interactive, no acute distress, good nutritional status, normal development,well-kept Neurological Exam Mental Status Alert, fully oriented, with normal speech and affect. Some difficulty in processing speed Cranial Nerves Face symmetric. Hearing intact with conversational speech. Motor Examination and Coordination Motor examination with normal bulk. Normal coordination. No adventitious movements or significant tremor. Gait Casual gait normal. IMPRESSION: Kiki Ware is a 22 year old woman with intractable generalized epilepsy with status epilepticus. She is currently on 7 AEDs and VNS. She had a prolonged hospital stay in August 2022 at [facility] where EEG showed frequent generalized seizures and abundant interictal discharges requiring escalation of AED therapy. Her seizures seemed to respond to Zarontin use which was the last medication added ( previously tried in 2017 but had abdominal pain). 07/16/2023 : Increased VNS from 1 to 1.25 mA. We discussed continued same dose of Fycompa for now at4 mg QHS as lowering doses resulted in absence seizures and drops. ASM levels from Jan 2023 shows normal Keppra, LCM and ZNS levels. 01/23/2024: VNS increased to 1.5mA. She has new type of episodes where she feels as if she cannot move ( she calls them panic attacks). We discussed home EEG monitoring. AEDs were continued. Unable to tolerate 1.5mA setting. We decreased the output to 1.25 today. Awaiting home EEG monitoring. PLAN: Continue AEDs at same doses . Fycompa 4 mg QHS . Keppra 3000 mg BID Vimpat 300 mg BID Onfi 20 mg BID Zonisamide 300 mg BID Klonapin 0.5 mg TID Ethosuzimide (Zarontin) 250 mg BID to be taken with food. HomeEEG monitoring pending Future options: if seizures are reasonably controlled, we will reduce Keppra and Vimpat. Attempts to reduce Fycompa resulted in recurrence of seizures. AEDs not tried yet: Lamictal, Xcopri, Epidiolex. Will revisit VNS settings in the future. At this time she is not able to tolerate 1.5mA. I discussed the risks, benefits and alternatives of the medical plan with the patient. Questions were answered. The patient agreed with the plan as discussed. FOLLOW-UP: No follow-ups on file. I spent a total of 30 minutes on the date of the service which included: preparing to see the patient [id number] patient care obtaining and/or reviewing separately obtained history completing clinical documentation performing a medically appropriate examination counseling and educating the patient/family/caregiver ordering medications, tests, or procedures I performed electronic analysis and programming of the VNS first 15 minutes [id number] time Ruben Tellez MD cc: Primary Care Physician: No primary care provider on file. No primary provider on file. Referring: Patient: Ms. Kiki Ware [id number] [id number] documented in this encounterThe [facility] Miscellaneous Notes* Telephone Encounter - Ladan No RN - 02/06/2024 12:24 PM EDT 01/23/2024: VNS increased to 1.5mA. She has new type of episodes where she feels as if she cannot move ( she calls them panic attacks). We discussed home EEG monitoring. AEDs were continued. PLAN: Continue AEDs at same doses . Fycompa 4 mg QHS . Keppra 3000 mg BID Vimpat 300 mg BID Onfi 20 mg BID Zonisamide 300 mg BID Klonapin 0.5 mg TID Ethosuzimide (Zarontin) 250 mg BID to be taken with food. Will check ASM levels. Future options: if seizures are reasonably controlled, we will reduce Keppra and Vimpat. Attempts to reduce Fycompa resulted in recurrence of seizures. AEDs not tried yet: Lamictal, Xcopri, Epidiolex. Optimize VNS - upto 2 or 2.5 mA. We may also try higher duty cycle upto 30%. Summary of the things we discussed today: Continue current medications. Prescriptions have been sent to your pharmacy. I increased the VNS settings today. Please let myoffice know if you are experiencing pain. We will get an EEG test done at home to see your seizure burden and to see if the panic epsiodes are related to seizures. I ordered labs. Please have your blood drawn before you take your morning dose of seizure medications or in the evening (at least 8 hrs after you take your medications). ========= Ladan No RN documented in this encounterThe [facility]09-[facility] Telephone encounter Note * Telephone Encounter - Ladan No RN - 02/06/2024 12:24 PM EDT 01/23/2024: VNS increased to 1.5mA. She has new type of episodes where she feels as if she cannot move ( she calls them panic attacks). We discussed home EEG monitoring. AEDs were continued. PLAN: Continue AEDs at same doses . Fycompa 4 mg QHS . Keppra 3000 mg BID Vimpat 300 mg BID Onfi 20 mg BID Zonisamide 300 mg BID Klonapin 0.5 mg TID Ethosuzimide (Zarontin) 250 mg BID to be taken with food. Will check ASM levels. Future options: if seizures are reasonably controlled, we will reduce Keppra and Vimpat. Attempts to reduce Fycompa resulted in recurrence of seizures. AEDs not tried yet: Lamictal, Xcopri, Epidiolex. Optimize VNS - upto 2 or 2.5 mA. We may also try higher duty cycle upto 30%. Summary of the things we discussed today: Continue current medications. Prescriptions have been sent to your pharmacy. I increased the VNS settings today. Please let myoffice know if you are experiencing pain. We will get an EEG test done at home to see your seizure burden and to see if the panic epsiodes are related to seizures. I ordered labs. Please have your blood drawn before you take your morning dose of seizure medications or in the evening (at least 8 hrs after you take your medications). ========= Ladan No RN [facility]08-27-[facility]24 Telephone encounter Note* Telephone Encounter - Lenny Merlos - 01/27/2024 11:46 AM EDT AEEG orders sent to [facility]. Lenny Merlos [facility]08-27-2024 Miscellaneous Notes* Telephone Encounter - Lenny Merlos - 01/27/2024 11:46 AM EDT AEEG orders sent to [facility]. Lenny Merlos documented in this encounterThe [facility]08-23-2024 NoteHNO ID: [id number] Author: RUBEN TELLEZ MD Service: ? Author Type: Physician Type: Progress Notes Filed: 01/23/2024 12:16 Note Text: [facility] Patient Name: Kiki Ware Date of : 2000 ESTABLISHED EPILEPSY CLINIC NOTE 01/23/2024 9:20 AM Reason for Visit: Follow Up and Epilepsy Clinical Summary: Ms. Ware is a 22 year old right-handed female [facility] in [facility]. At today's visit, the patient is accompanied by: significant other (Hao) 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 Mother reports that she was at school. A week later she experienced another one. She did not experience another one until she was 12 year old when she experienced a prolonged GTC seizure for 10 minutes. AT that time she was started on Keppra. Keppra decreased the frequency of GTC seizures but AEDs were changed or added overtime. Mother thinks that when Depakote was added seizures became better controlled. Levels were high at some point and AEDs changes continued to be made: Mother reports different seizure types overtime: 1.GTC seizures, her last one was 2 years ago 2. Eye fluttering with absence at times that they can occur daily. They can occur daily. These episodes began at age [age] year old 3. Head drops for few seconds. She may fall or not with these events. No LOC. These events can occur 2-3 times a week. 4. Arms jerks or whole body jerks that can happen when she is watching TV or sleeping. They may occur daily as well. She bejarano snot recall when did she began experiencing them. Patient was admitted to [facility] with Breakthrough seizures a few days after she delivered her baby in August 2022. Hospital stay was complicated by multiple clusters of generalized seizures (most of them untested, but was dialeptic with eye lid fluttering when tested). Several AED changes were made eventually adding Ethosuximide. Nexplanon was explanted and Depo-provera was used in its place as patient felt that her seizures were worse after nexplanon. AED changes during 08/2022 admission Keppra 4000 mg BID -> 2000 mg BID (10/01/2022)-> 3000 BID (10/03/2022) Level elevated at 113.5 on 09/29/2022 Onfi 20 mg BID level normal on 09/26/2022 Zonisamide 300 mg BID level normal on 09/26 Vimpat 250 mg BID level normal on 09/26-> 300 BID (10/03/2022) Fycompa (perampanel) 2mg started 09/30/2022-> 4 mg (10/02/2022) [ bolus of 8 mg given on 10/01/2022]-> 6mg [10/03] VPA 250 BID [10/02/2022]-> D/C 10/06/2022 Ammonia levels were elevated. Klonapin 0.5 mg BID [ 10/03]-> 0.5 mg TID [10/04/2022] Zarontin 250 mg BID [10/04/2022] Current AEDs ? Keppra 3000 mg BID ? Vimpat 300 mg BID ? Onfi 20 mg BID ? Zonisamide 300 mg BID ? Fycompa 4 mg QHS ? Klonapin 0.5 mg TID ? Ethosuzimide (Zarontin) 250 mg BID to be taken with food. Folic acid 1 mg daily VNS implanted in Jan 2017 Patient was unable to finish high school due to frequenct seizures. Mother reports that she used to be in an accelarated class in the past. 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 In 2015 she received IV steroids Interval Seizure History Episodes of black out and panic attack. Black out- staring for a few seconds. Panic attack Crystal like someone is pushing and got stuck to the floor. She felt as if she cannot move. Total # of Current Anti-seizure Medications: Side Effects to Current Anti-seizure Medications: Seizure Frequency at First Visit: 3 per day Longest Seizure-free Interval: 4 years Number of seizure types: 4 Hx of generalized tonic-clonic seizures: Yes Status Epilepticus or clusters: No Postictal Agitation: No Driving: No Lives Alone: No CURRENT OUTPATIENT ANTISEIZURE MEDICATIONS (as of the start of the encounter) zonisamide (ZONEGRAN) 100 mg capsule (Taking) Take 3 capsules by mouth two times a day. cloBAZam (ONFI) 10 mg tab tablet (Taking) Take 2 tablets by mouth two times a day for 180 days. perampanel (FYCOMPA) 4 mg tablet Take 1 tablet by mouth daily at bedtime for 90 days. levETIRAcetam (KEPPRA) 1,000 mg tablet Take 3 tablets by mouth two times a day. lacosamide (VIMPAT) 150 mg tab Take 2 tablets by mouth two times a day for 180 days. ethosuximide (ZARONTIN) 250 mg capsule Take 1 capsule by mouth two times a day. clonazePAM (KLONOPIN) 0.5 mg tablet Take 1 tablet by mouth three times a day for 180 days. Prior Anti-seizure Therapies: Trial Adequacy: Max Daily Dose Achieved: Side Effects: Effectiveness: Comments: Clobazam Ethosuximide Lacosamide Levetiracetam Peramp (more content not included)...[facility]08-23-2024 History of Present illness Narrative* Ruben Tellez MD - 01/23/2024 12:11 PM EDT Images from the original note were not included. [facility] Patient Name: Kiki Ware Date of : 2000 ESTABLISHED EPILEPSY CLINIC NOTE 01/23/2024 9:20 AM Reason for Visit: Follow Up and Epilepsy Clinical Summary: Ms. Ware is a 22 year old right-handed female [facility] in [facility]. At today's visit, the patient is accompanied by: significant other (Hao) 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 Mother reports that she was at school. A week later she experienced another one. She did not experience another one until she was 12 year old when she experienced a prolonged GTC seizure for 10 minutes. AT that time she was started on Keppra. Keppra decreased the frequency of GTCseizures but AEDs were changed or added overtime. Mother thinks that when Depakote was added seizures became better controlled. Levels were high at some point and AEDs changes continued to be made: Mother reports different seizure types overtime: 1.GTC seizures, her last one was 2 years ago 2. Eye fluttering with absence at times that they can occur daily. They can occur daily. These episodes began at age [age] year old 3. Head drops for few seconds. She may fall or not with these events. No LOC. These events can occur 2-3 times a week. 4. Arms jerks or whole body jerks that can happen when she is watching TV or sleeping. They may occur daily as well. She bejarano snot recall when did she began experiencing them. Patient was admitted to [facility] with Breakthrough seizures a few days after she delivered matty in August 2022. Hospital stay was complicated by multiple clusters of generalized seizures (most of them untested, but was dialeptic with eye lid fluttering when tested). Several AED changes weremade eventually adding Ethosuximide. Nexplanon was explanted and Depo-provera was used in its placeas patient felt that her seizures were worse after nexplanon. AED changes during 08/2022 admission Keppra 4000 mg BID -> 2000 mg BID (10/01/2022)-> 3000 BID (10/03/2022) Level elevated at 113.5 on 09/29/2022 Onfi 20 mg BID level normal on 09/26/2022 Zonisamide 300 mg BID level normal on 09/26 Vimpat 250 mg BID level normal on 09/26-> 300 BID (10/03/2022) Fycompa (perampanel) 2mg started 09/30/2022-> 4 mg (10/02/2022) [ bolus of 8 mg given on 10/01/2022]-> 6mg [10/03] VPA 250 BID [10/02/2022]-> D/C 10/06/2022 Ammonia levels were elevated. Klonapin 0.5 mg BID [ 10/03]-> 0.5 mg TID [10/04/2022] Zarontin 250 mg BID [10/04/2022] Current AEDs Keppra 3000 mg BID Vimpat 300 mg BID Onfi 20 mg BID Zonisamide 300 mg BID Fycompa 4 mg QHS Klonapin 0.5 mg TID Ethosuzimide (Zarontin) 250 mg BID to be taken with food. Folic acid 1 mg daily VNS implanted in Jan 2017 Patient was unable to finish high school due to frequenct seizures. Mother reports that she used to be in an accelarated class in the past. 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 In 2015 she received IV steroids Interval Seizure History Episodes of black out and panic attack. Black out- staring for a few seconds. Panic attack Crystal like someone is pushing and got stuck to the floor. She felt as if she cannot move. Total # of Current Anti-seizure Medications: Side Effects to Current Anti-seizure Medications: Seizure Frequency at First Visit: 3 per day Longest Seizure-free Interval: 4 years Number of seizure types: 4 Hx of generalized tonic-clonic seizures: Yes Status Epilepticus or clusters: No Postictal Agitation: No Driving: No Lives Alone: No CURRENT OUTPATIENT ANTISEIZURE MEDICATIONS (as of the start of the encounter) zonisamide (ZONEGRAN) 100 mg capsule (Taking) Take 3 capsules by mouth two times a day. cloBAZam (ONFI) 10 mg tab tablet (Taking) Take 2 tablets by mouth two times a day for 180 days. perampanel (FYCOMPA) 4 mg tablet Take 1 tablet by mouth daily at bedtime for 90 days. levETIRAcetam (KEPPRA) 1,000 mg tablet Take 3 tablets by mouth two times a day. lacosamide (VIMPAT) 150 mg tab Take 2 tablets by mouth two times a day for 180 days. ethosuximide (ZARONTIN) 250 mg capsule Take 1 capsule by mouth two times a day. clonazePAM (KLONOPIN) 0.5 mg tablet Take 1 tablet by mouth three times a day for 180 days. Prior Anti-seizure Therapies: Trial Adequacy: Max Daily Dose Achieved: Side Effects: Effectiveness: Comments: Clobazam Ethosuximide Lacosamide Levetiracetam Perampanel Vagal Nerve Stimulation Valproate hyperammonemia Zonisamide Clonazepam Comorbidities: None Episode Description: SEIZURE TYPE 1: GTC Onset: 8 YO Aura: no Loss of awareness: Duration: Frequency: Last occurred: yes less than a minute SEIZURE TYPE 2: absence Onset: 17 yo Aura: no Loss of awareness: Duration: Frequency: Last occurred: yes less than a minute SEIZURE TYPE 3: head drop Onset: 20 yo Loss of awareness: Duration: Frequency: Last occurred: no less than a minute SEIZURE TYPE 4: myoclonic jerks Onset: 20 yo Aura: no Loss of awareness: Duration: Frequency: Last occurred: no less than a minute Patient Entered Data: EPILEPSY SCORE 01/13/2023 1:54 PM 09/20/2022 1:40 PM 08/13/2022 2:51 PM First answer obtained - 02/12/2022 2:49 PM PHQ-9 SCORE 0 [None-Minimal Depression] 0 [None-Minimal Depression] 0 [None- Minimal Depression] - GEORGE 2 SCORE 0 [Negative Anxiety Screen] 0 [Negative Anxiety Screen] 0 [Negative Anxiety Screen] - GEORGE 7 SCORE - - - - QOLIE-10 SCORE (0=worst; 100=best QoL - higher scores represent better function) 12 11 11 - LSSS SCORE (0- no seizures 100- most severe possible seizures) - - - - C-SSRS SCREEN - - - - On average, how many hours of sleep do you get in a 24-hour period? - - - - PROMIS Sleep Disturbance T-SCORE - - - 37 [within normal limits] Have you been diagnosed with Sleep Apnea? - - - - Seizure risk factors: Brain Tumor No HAT BINDER Infections No Developmental Delay No Family history of seizures No Febrile Seizure Unanswered Complications Yes Stroke No Traumatic Brain Injury Yes Previous Epilepsy Evaluations Bedside EEG [facility] 09/2022 Continuous Video-EEG was reviewed from 423 on 10/06/22 to 42310/07/22 and is suggestive of a bilateral cortical dysfunction maximum in the left hemisphere and generalized epileptogenicity. There was one generalized EEG seizures seen in this recording at 0842 on 10/06/22 lasting 3 minutes 30 seconds with clinical signs of apparent decreased responsiveness/starring off (patient was not tested during the time). There is also evidence of a moderate diffuse encephalopathy. Routine EEG ([facility], 09/08/2020): During this awake and sleep epoch of continuous digital EEG/Video monitoring with scalp electrodes, the EEG was abnormal due to the presence of mild diffuse background slowing, excess of low voltage fast activity(medication related) and frequent, most likely interictal bursts of waxing and waning generalized, irregular polyspike and slow ave discharges while awake and asleep and high voltage runs of paroxysmal fast activity seen when asleep. No unequivocal seizures were recorded. 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 Video EEG ([facility], 12/16 - 12/19/2019): Abundant generalized 2.0-2.5 Hz sharp and slow wave seizures, as well as bursts of generalized beta- and gamma-frequency spikes during sleep, are consistent with a primary generalized epilepsy, such as Pendleton-Gastaut Sydnrome. Electrical status epilepticus of sleep (ESES) was not seen. Video EEG ([facility], 03/15/2019): During 25 hours and 50 minutes of continuous digital EEG/Video monitoring with scalp electrodes, the EEG was abnormal given the presence of intermittent background theta slowing, drowsiness and sleep activated spike/polyspike and slow wave complexes and bursts of paroxysmal generalized fast activity noted during NREM sleep. Given the electrographic features, the patten of the paroxysmal fast activity likely represented subclinical seizures. In comparison to previous EEGs, the background was improved with the distinct lack of spike/polyspike and slow wave complexes noted during wakefulness. The fast activity bursts in sleep have a relatively similar morphology and frequency as noted in prior studies. These findings are consistent with the patients known history of refractory generalized epilepsy with overall background improvement during wakefulness. Video EEG ([facility], 09/01/2017): During 20 hours and 42 minutes of continuous digital EEG/Video monitoring with scalp electrodes, the EEG was abnormal given the presence of sleep activated generalized bursts of fast repetitive spikes along with polyspike>spike and slow wave complexes. The morphology and electrographic evolution with after going slowing most likely represented subclinical seizures during sleep. In comparison to previous EEGs, consistent findings were noted during this study as the patients last study in 05/2017. No new events of concern were recorded. These findings are consistent with her known history of refractory generalized epilepsy. Video EEG ([facility], 05/06/2017): During 21 hours and 2 minutes of continuous digital EEG/Video monitoring with scalp electrodes, the EEG was abnormal due to the presence of sleep activated paroxysmal bursts of fast repetitive spikes and spike/polyspike and slow wave complexes, which due to e lectrographic evolution and aftermath slowing most likely represent subclinical seizures. In comparison to previous EEGs, this study showed significant improvement with the lack of interictal discharges in the awake background, but the sleep portion showed only mild improvement in the frequency and duration of the discharges. These findings are consistent with her known history of refractory generalized epilepsy with overall improvement on current treatment. Video EEG ([facility], 01/25/2017): During 29 hours of continuous digital EEG/Video monitoringwith scalp electrodes, the EEG was abnormal given the presence of 1. Diffuse background slowing 2. Numerous subclinical seizures during wakefulness and sleep 3. Frequent runs of epileptiform discharges composed of polyspike/spike and slow wave in addition to sleep activated bursts of paroxysmal fast activity. In comparison to previous EEGs, there was no significant changes in the ictal and interictal discharges. 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 Video EEG ([facility], 08/23/2016): During 61 hours and 44 minutes of continuous digital EEG/Video monitoring with scalp electrodes, the EEG was severely abnormal due to the presence of: 1. Reoccurring subclinical seizures during awake (Type A) and sleep (Type B), characterized by different electrographic patterns (see ictal above) 2. Polyspike and slow wave discharges 3. Diffuse background slowing The patient received IV dose of Vimpat with a subtle--brief--improvement in the EEG pattern. Depakote was discontinued. These findings could be seen in patient's with epileptic encephalopathy and areconsistent with an active, refractory generalized epilepsy. Video EEG ([facility], 08/06/2016): During 22 hours of continuous digital EEG/Video monitoring with scalp electrodes, the EEG was Abnormal. One clinical seizure was observed consisting of confusion and atypical 1-2hz spike wave discharges lasitng 21. In sleep multiple subclincal bursts of generalized spike followed by 20 hz actiity lasting 3-5 sec are observed. In addition multiple burst of difuse beta as seen below are noted not associated with clincal change. EEG (02/29/16): INTERPRETATION: This is an abnormal awake and asleep EEG. The atypical spike wave pattern is consistant with a primary generalized seizure disorder. Video EEG ([facility], 02/12/2016): During 41 hour 45 minutes of continuous digital EEG/Video monitoring with scalp electrodes, the EEG was abnormal due to the presence of recurring subclinical seizures and generalized polyspike and slow wave discharges occurring interictally. There were a fewseizures associated with subtle myoclonic jerks and delays in response. One event of room shaking was captured and was not associated with any change on the EEG background, therefore was not epileptic in the origin. In comparison to the previous EEG, similar interictal discharge was noted with improvement during the first day of the stay and subsequent increase in frequency during the rest of the stay. No Electrical Status Epilepticus of slow wave Sleep was seen, although the morphology of the discharges was composed predominantly of polyspikes, while before it was a mixture of spike and polyspike-slow wave complexes. The patient received a treatment of a high dose IV steroids over 3 day admission without a significant improvement in the EEG pattern. These findings are consistent with an active, refractory generalized epilepsy. Video EEG ([facility], 12/04-12/08/2015): During 65 hours and 54 minutes of continuous digital EEG/Video monitoring with scalp electrodes, the EEG was abnormal due to: Multiple myoclonic seizures Electrical status epilepticus of sleep comprised of ~80% of her slow wave sleep. Frequent and long runs of generalized spike/ polyspike and slow wave discharges with a bifrontal maximum. Posterior dominant rhythm <8 Hz. Numerous patient events were captured when the patient reported to have eye flutter, headache and staring, but it was difficult to associate clinical correlate with the EEG due to very frequent interictal discharges and timing of epileptiform burst and button push. At times, there were no epileptiform discharges noted during the episode raising concern of all those events to be non epileptic. In comparison to previous EEGs, similar discharges were noted and appeared to increase in frequency. This is consistent with epileptic seizures of a generalized mechanism and epileptic encephalopathy. Routine EEG ([facility], 03/22/14): This is an abnormal awake and asleep EEG due to very frequent generalized polyspikes, spike-wave complexes and EEG seizure pattern that developed during photic stimulation. This EEG is indicative of an active generalized epilepsy. MRI brain wo contrast ([facility], 01/23/2016): unremarkable exam MRI brain wo contrast ([facility], 03/22/2014): Limited exam due to patient motion. No gross intracranial abnormalities identified. CT head wo contrast ([facility], 11/28/2019): No acute intracranial abnormality Other caregivers: Primary Care Provider: No primary care provider on file. Current Outpatient Medications Medication Sig zonisamide (ZONEGRAN) 100 mg capsule Take 3 capsules by mouth two times a day. medroxyPROGESTERone (DEPO-PROVERA) 150 mg/mL Inject 1 mL intramuscularly every 12 weeks. cloBAZam (ONFI) 10 mg tab tablet Take 2 tablets by mouth two times a day for 180 days. folic acid 1 mg tablet Take 2 tablets by mouth twice daily. clonazePAM (KLONOPIN) 0.5 mg tablet Take 1 tablet by mouth three times a day for 180 days. ethosuximide (ZARONTIN) 250 mg capsule Take 1 capsule by mouth two times a day. lacosamide (VIMPAT) 150 mg tab Take 2 tablets by mouth two times a day for 180 days. levETIRAcetam (KEPPRA) 1,000 mg tablet Take 3 tablets by mouth two times a day. perampanel (FYCOMPA) 4 mg tablet Take 1 tablet by mouth daily at bedtime for 90 days. Current Facility-Administered Medications Medication Dose Route Frequency medroxyPROGESTERone 150 mg injection (DEPO-PROVERA) 150 mg INTRAMUSCULAR every 12 weeks ALLERGIES Allergen Reactions Depakote [Divalproe* Other: See Comments Abnormal LFTs PAST MEDICAL HISTORY No date: ADHD (attention deficit hyperactivity disorder) No date: Anemia No date: Anxiety No date: Epilepsy (HCC) No date: Esophageal reflux No date: Intractable epilepsy without status epilepticus (HCC) 09/03/2022: Prematurity of fetus No date: Traumatic brain injury ([facility]) Comment: concussion at age year old PAST SURGICAL HISTORY 09/24/2022: DELIVERY ONLY Comment: LTCS No date: PAST SURGICAL HISTORY OF Comment: VNS implant, vagal nerve stimulator- approx in 2016 FAMILY HISTORY Problem Relation Age of Onset No Known Problems Father Thyroid Cancer Mother No Known Problems Brother Asthma Brother outgrown asthma Allergies Brother other (drug overdose) Brother other (MVA) Brother Allergies Brother No Known Problems Sister other (retina cancer) Maternal Grandfather Uterine Cancer Maternal Grandmother No Known Problems Paternal Grandfather COPD Paternal Grandmother Diabetes Maternal Aunt SOCIAL HISTORY: -Lives in [place], [place] -Patient lives alone? No -Vocation: -Education: -Cigarette, alcohol, substance use: -Functional status: independent in activities of daily living -Patient driving? No Review of Systems All other systems reviewed and are negative. VITAL SIGNS: BP 118/88 Pulse 98 Resp 16 Ht 157.5 cm (5' 2) LMP 01/05/2024 (Exact Date) BMI 37.68 kg/m General Examination: She is accompanied by significant other. General: Awake, alert, interactive, no acute distress, good nutritional status, normal development,well-kept Neurological Exam Mental Status Alert, fully oriented, with normal speech and affect. Some difficulty in processing speed Cranial Nerves Face symmetric. Hearing intact with conversational speech. Motor Examination and Coordination Motor examination with normal bulk. Normal coordination. No adventitious movements or significant tremor. Gait Casual gait normal. IMPRESSION: Kiki Ware is a 22 year old woman with intractable generalized epilepsy with status epilepticus. She is currently on 7 AEDs and VNS. She had a prolonged hospital stay in August 2022 at [facility] where EEG showed frequent generalized seizures and abundant interictal discharges requiring escalation of AED therapy. Her seizures seemed to respond to Zarontin use which was the last medication added ( previously tried in 2017 but had abdominal pain). 07/16/2023 : Increased VNS from 1 to 1.25 mA. We discussed continued same dose of Fycompa for now at4 mg QHS as lowering doses resulted in absence seizures and drops. ASM levels from Jan 2023 shows normal Keppra, LCM and ZNS levels. 01/23/2024: VNS increased to 1.5mA. She has new type of episodes where she feels as if she cannot move ( she calls them panic attacks). We discussed home EEG monitoring. AEDs were continued. PLAN: Continue AEDs at same doses . Fycompa 4 mg QHS . Keppra 3000 mg BID Vimpat 300 mg BID Onfi 20 mg BID Zonisamide 300 mg BID Klonapin 0.5 mg TID Ethosuzimide (Zarontin) 250 mg BID to be taken with food. Will check ASM levels. Future options: if seizures are reasonably controlled, we will reduce Keppra and Vimpat. Attempts to reduce Fycompa resulted in recurrence of seizures. AEDs not tried yet: Lamictal, Xcopri, Epidiolex. Optimize VNS - upto 2 or 2.5 mA. We may also try higher duty cycle upto 30%. Data reviewed as above including: electronic medical record Testing Ordered Routine EEG Ambulatory EEG anticonvulsant level I discussed the risks, benefits and alternatives of the medical plan with the patient. Questions were answered. The patient agreed with the plan as discussed. FOLLOW-UP: Return in about 3 months (around 04/24/2024). I spent a total of 45 minutes on the date of the service which included: preparing to see the patient [id number] patient care completing clinical documentation performing a medically appropriate examination obtaining and/or reviewing separately obtained history counseling and educating the patient/family/caregiver ordering medications, tests, or procedures I performed electronic analysis and programming of the VNS first 15 minutes [id number] time Ruben Tellez MD cc: Primary Care Physician: No primary care provider on file. No primary provider on file. Referring: Patient: Ms. Kiki Ware [id number] [facility] [id number] documented in this encounterThe [facility]08-[facility] Instructions* Patient Instructions* Ruben Tellez MD - 01/23/2024 10:21 AM EDT Summary of the things we discussed today: Continue current medications. Prescriptions have been sent to your pharmacy. I increased the VNS settings today. Please let myoffice know if you are experiencing pain. We will get an EEG test done at home to see your seizure burden and to see if the panic epsiodes are related to seizures. I ordered labs. Please have your blood drawn before you take your morning dose of seizure medications or in the evening (at least 8 hrs after you take your medications). Follow up in 3 months. Please call my office if you have more seizures or with any seizure related concerns. Seizure precautions - No driving in the state [facility] until seizure free for 6 months. Please check with local state authorities for state specific driving regulations. - No operating heavy machines - No swimming without supervision or bathing in a bathtub due to risk of drowning in the event of aseizure. Patient may shower. - Avoid unsafe heights, including ladders, due to risk of fall-related injury in the event of a seizure. - Seizure precipitating factors discussed including not taking seizure medications as prescribed, stress, excessive caffeine intake, energy drinks, alcohol, sleep deprivation or any identifiable seizure precipitating factor. Ruben Tellez MD Associate Staff, Epilepsy [facility] January 23, 2024 Office phone: [phone] documented in this encounterThe [facility]08-23-2024 Telephone encounter Note * Telephone Encounter - Virgilio Ramsey PA-C - 01/23/2024 7:48 AM EDT The following approved medication requests have been transmitted electronically. Requested Prescriptions Signed Prescriptions Disp Refills zonisamide (ZONEGRAN) 100 mg capsule 540 capsule 1 Sig: Take 3 capsules by mouth two times a day. Authorizing Provider: VIRGILIO RAMSEY PA-C [facility]08-23-2024 Miscellaneous Notes* Telephone Encounter - Virgilio Ramsey PA-C - 01/23/2024 7:48 AM EDT The following approved medication requests have been transmitted electronically. Requested Prescriptions Signed Prescriptions Disp Refills zonisamide (ZONEGRAN) 100 mg capsule 540 capsule 1 Sig: Take 3 capsules by mouth two times a day. Authorizing Provider: VIRGILIO RAMSEY PA-C * Telephone Encounter - Isabell Gallegos - 01/23/2024 7:21 AM EDT Prescription Refill: Requested by: patient Please E-Scribe Caller Contact Number: [employer] [facility] Name: [facility] Number: [phone] Generic/ brand: 30 or 90 day supply requested: 90 Last appointment: 07/16/23 Next Appointment: 01/23/[address] Tellez documented in this encounterThe [facility]08-23-2024 Telephone encounter Note * Telephone Encounter - Isabell Gallegos - 01/23/2024 7:21 AM EDT Prescription Refill: Requested by: patient Please E-Scribe Caller Contact Number: [employer] [facility]: [facility] Number: [phone] Generic/ brand: 30 or 90 day supply requested: 90 Last appointment: 07/16/23 Next Appointment: 01/23/[address] Tellez [facility]08-22-2024 NoteHNO ID: [id number] Author: ZENIA TRACY LPN Service: ? Author Type: LICENSED NURSE Type: Progress Notes Filed: 01/22/2024 12:24 Note Text: Patient identified by name and date of . Kiki Ware is here for a Depo Provera injection. Patient brought medication. Date last injected: first depo provera- negative test Depo-Provera, 150 mg, administered IM left upper quadrant gluteus, Lot # [id number], expiration date 07/31/2027. Depo-Provera was given without incident. Date of last menses: Patient's last menstrual period was 01/05/2024 (exact date). Irregular bleeding - yes Menses ceased - No STD prevention discussed: Yes Patient instructed to return to clinic in 12 weeks. [email or web address] Provider Ariel Gutierrez was present in office at time of injection. [facility] History of Present illness Narrative* Zenia Tracy LPN - 01/22/2024 11:40 AM EDT Patient identified by name and date of . Kiki Ware is here for a Depo Provera injection. Patient brought medication. Date last injected: first depo provera- negative test Depo-Provera, 150 mg, administered IM left upper quadrant gluteus, Lot # [id number], expiration date 07/31/2027. Depo-Provera was given without incident. Date of last menses: Patient's last menstrual period was 01/05/2024 (exact date). Irregular bleeding - yes Menses ceased - No STD prevention discussed: Yes Patient instructed to return to clinic in 12 weeks. [email or web address] Provider Ariel Gutierrez was present in office at time of injection. Zenia Tracy LPN documented in this encounterThe [facility]08-22-2024 Instructions* Patient Instructions* Zenia Tracy LPN - 01/22/2024 11:40 AM EDT DEPO-PROVERA control is a way for men and women to prevent . There are many different methods of control; some types also protect against sexually transmitted diseases. Depo-Provera is a control method for women. It is made up of a hormone similar to progesterone and is given as a shot into the woman's arm or buttocks. Each shot provides protection against for up to 14 weeks, but the shot must be received once every 3 months. Depo-Provera does not protect against sexually transmitted diseases. Where can I get Depo-Provera? You must receive the shot from a doctor. The shot is usually given within five days of the beginning of your menstrual period. How is Depo-Provera used? Once the shot has been given, no additional steps are needed to prevent . With Depo-Provera, you must receive another shot once every three months to remain fully protected. How soon does it work? Protection begins immediately after the first shot if given during a menstrual period. How effective is Depo-Provera? Depo-Provera is 99% effective in preventing . Can any woman use Depo-Provera? Most women can use Depo-Provera. However, it is not recommended for women who have: Unexplained vaginal bleeding Liver disease Breast cancer Blood clots Are there side effects associated with Depo-Provera? Depo-Provera can cause a number of side effects, including: Irregular menstrual periods, or no periods at all Headaches Nervousness Depression Dizziness Acne Changes in appetite Weight gain Excessive growth of facial and body hair Hair loss You should discuss the potential side effects of Depo-Provera with your doctor. Most of the side effects are not common. Change in the menstrual cycle is the most common side effect. You may experience irregular bleeding or spotting. After a year of use, about 50% of women will stop getting their periods. Their periods usually return when they discontinue the shots. Can I become after I stop using Depo-Provera? With Depo-Provera, you could become as soon as 12 to 14 weeks after your last shot. It maytake some women up to a year or two to conceive after they stop using this type of control. Does Depo-Provera protect against sexually transmitted diseases? No. To help protect yourself from STDs, use a male condom each time you and your partner have sex. What are the advantages of using Depo-Provera? You don't have to remember to take it every day or use it before sex. It provides long-term protection as long as you get the shot every three months. It doesn't interfere with sexual activity. It's over 99% effective. It's less expensive than the Pill. What are the disadvantages of using Depo-Provera? It can cause unwanted side effects. It does not provide protection against sexually transmitted diseases. It can cause irregular menstrual periods. You need to stop taking Depo-Provera several months ahead of time if you plan to become . Regular doctor visits can be inconvenient. Copyright 4171-5486 The [facility]. All rights reserved This information is provided by the [facility] and is not intended to replace the medical advice of your doctor or health care provider. Please consult your health care provider for advice about a specific medical condition. For additional written health information, please contact the [facility] Center at the [facility] or toll-free extension [phone]. This document was last reviewed on: 2004 documented in this encounterThe [facility]08-16-2024 Telephone encounter Note * Telephone Encounter - Radha Holt RN - 01/16/2024 2:35 PM EDT General Atomicst message sent to Pt by and Pt viewed on 01/15. Radha Holt RN [facility]08-16-2024 Miscellaneous Notes* Telephone Encounter - Radha Holt RN - 01/16/2024 2:35 PM EDT General Atomicst message sent to Pt by and Pt viewed on 01/15. Radha Holt RN * Telephone Encounter - Ariel Gutierrez APRN.CNP - 01/14/2024 1:39 PM EDT Please notify patient: Reviewed Depo with her neurologist, Dr. Tellez. Kiki and I discussed possible interaction with Depo and Onfi, another medication she is on. There is a potential interaction and risk for contraception failure. The contraception option without any potential for interaction is IUD (copper or progesterone only). IUD is the best option for contraception in this case. However, if she is not willing, Depo is better than no contraception. We would still recommend a back up form of contraception - such as condoms if possible as Onfi does have the potential to cause harm to a developing fetus. She has an upcoming appt with neuro she can discuss this more with or can follow up with me on any further questions. Ariel Gutierrez APRN.CNP documented in this encounterThe [facility]08-14-2024 Telephone encounter Note * Telephone Encounter - Ariel Gutierrez APRN.CNP - 01/14/2024 1:39 PM EDT Please notify patient: Reviewed Depo with her neurologist, Dr. Galla. Dutton and I discussed possible interaction with Depo and Onfi, another medication she is on. There is a potential interaction and risk for contraception failure. The contraception option without any potential for interaction is IUD (copper or progesterone only). IUD is the best option for contraception in this case. However, if she is not willing, Depo is better than no contraception. We would still recommend a back up form of contraception - such as condoms if possible as Onfi does have the potential to cause harm to a developing fetus. She has an upcoming appt with neuro she can discuss this more with or can follow up with me on any further questions. Ariel Gutierrez APRN.CNP [facility]08-14-2024 Instructions* Patient Instructions* Ariel Gutierrez APRN.CNP - 01/14/2024 10:57 AM EDT A 3-dose schedule is recommended for people who get the first dose on or after their 15th birthday,and for people with certain immunocompromising conditions. In a 3-dose series, the second dose should be given 1-2 months after the first dose, and the third dose should be given 6 months after the first dose (0, 1-2, 6-month schedule). The minimum intervals are 4 weeks between the first and second dose, 12 weeks between the second and third doses, and 5 months between the first and third doses. If a vaccine dose is administered after a shorter interval, it should be re-administered after another minimum interval has elapsed sincethe most recent dose. If the vaccination schedule is interrupted, vaccine doses do not need to be repeated (no maximum interval). documented in this encounterThe [facility]08-14-2024 NoteHNO ID: [id number] Author: ARIEL GUTIERREZ APRN.CNP Service: ? Author Type: Nurse Practitioner Type: Progress Notes Filed: 01/14/2024 11:29 Note Text: Boomswing Operator offered: Patient declinesSonya Dutton is a 23 year old who presents for an annual gynecologic exam without complaints. Would like STD testing done. Menses: irregular, lasting 7 days Contraception: none HPV vaccine: No Last Pap: never HPV: never History of abnormal pap: No Last mammogram: never Sexually active: No History of STDS: None Patient concerns for STD exposure: No. 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) 09/03/2022: Prematurity of fetus No date: Traumatic brain injury (HCC) Comment: concussion at age year oldPAST SURGICAL HISTORY 09/24/2022: DELIVERY ONLY Comment: LTCS No date: PAST SURGICAL HISTORY OF Comment: VNS implant, vagal nerve stimulator- approx in 2016 FAMILY HISTORY Problem Relation Age of Onset No Known Problems Father Thyroid Cancer Mother No Known Problems Brother Asthma Brother outgrown asthma Allergies Brother other (drug overdose) Brother other (MVA) Brother Allergies Brother No Known Problems Sister other (retina cancer) Maternal Grandfather Uterine Cancer Maternal Grandmother No Known Problems Paternal Grandfather COPD Paternal Grandmother Diabetes Maternal Aunt SOCIAL HISTORY Social History Tobacco Use Smoking status: Never Passive exposure: Current Smokeless tobacco: Never Tobacco comments: smoking outside per mom Vaping Use Vaping Use: Never used Substance Use Topics Alcohol use: Not Currently Drug use: Not Currently Types: Marijuana REVIEW OF SYSTEMS Abdomen: No abdominal pain, nausea, vomiting, diarrhea, or constipation. No bloating, early satiety, indigestion, or increased flatulence. Bladder: No dysuria, gross hematuria, urinary frequency, urinary urgency, or incontinence. Breast: No breast lumps, nipple d/c, overlying skin changes, redness or skin retraction. Allergies and current medication updated:Yes EXAM: BP 114/82 Pulse 98 Resp 16 Ht 5' 3.984 (1.63m) Wt 212 lb (96.2kg) SpO2 97% LMP 01/05/2024 BMI 36.42 kg/(m2). GENERAL: pleasant, female in no apparent distress HEENT: Normocephalic, atraumatic, mucus membranes moist, and no lesions NECK: Supple, full range of motion, no adenopathy, and thyroid normal DERMATOLOGY: Normal, without lesions, non-icteric, and non-hirsute BREAST: soft, non-tender, symmetric, no dominant mass, normal nipple-areolar complex, no lymphadenopathy, and no nipple discharge CHEST: Normal inspiratory effort ABDOMEN: soft, non-tender, and no masses PELVIC: external genitalia normal, normal Bartholin's glands, urethra, [place]'s glands, no vulvar lesions, no cervical lesions, good vaginal support, physiologic discharge present, normal appearing perineal body and perianal region BIMANUAL: uterus normal size, shape and consistency, no adnexal masses, and non-tender RECTOVAGINAL: deferred. NEURO: alert and oriented x3,exam grossly non-focal EXTREMITIES: normal ASSESSMENT/PLAN: 1) Health maintenance: Pap done with reflex HPV. HPV vaccine: info provided 2) Contraception: Depo Provera. Reviewed r/b. To return for nurse visit. 3) STD screening: Accepted full STD check 4) Follow up one year or sooner as needed Ariel Gutierrez APRN.[facility]08-14-2024 History of Present illness Narrative* Ariel Gutierrez APRN.[facility] - 01/14/2024 10:25 AM EDT Boomswing Operator offered: Patient declines. Kiki is a 23 year old who presents for an annual gynecologic exam without complaints. Would like STD testing done. Menses: irregular, lasting 7 days Contraception: none HPV vaccine: No Last Pap: never HPV: never History of abnormal pap: No Last mammogram: never Sexually active: No History of STDS: None Patient concerns for STD exposure: No. 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) 09/03/2022: Prematurity of fetus No date: Traumatic brain injury (HCC) Comment: concussion at age year oldPAST SURGICAL HISTORY 09/24/2022: DELIVERY ONLY Comment: LTCS No date: PAST SURGICAL HISTORY OF Comment: VNS implant, vagal nerve stimulator- approx in 2016 FAMILY HISTORY Problem Relation Age of Onset No Known Problems Father Thyroid Cancer Mother No Known Problems Brother Asthma Brother outgrown asthma Allergies Brother other (drug overdose) Brother other (MVA) Brother Allergies Brother No Known Problems Sister other (retina cancer) Maternal Grandfather Uterine Cancer Maternal Grandmother No Known Problems Paternal Grandfather COPD Paternal Grandmother Diabetes Maternal Aunt SOCIAL HISTORY Social History Tobacco Use Smoking status: Never Passive exposure: Current Smokeless tobacco: Never Tobacco comments: smoking outside per mom Vaping Use Vaping Use: Never used Substance Use Topics Alcohol use: Not Currently Drug use: Not Currently Types: Marijuana REVIEW OF SYSTEMS Abdomen: No abdominal pain, nausea, vomiting, diarrhea, or constipation. No bloating, early satiety, indigestion, or increased flatulence. Bladder: No dysuria, gross hematuria, urinary frequency, urinary urgency, or incontinence. Breast: No breast lumps, nipple d/c, overlying skin changes, redness or skin retraction. Allergies and current medication updated:Yes EXAM: BP 114/82 Pulse 98 Resp 16 Ht 5' 3.984 (1.63m) Wt 212 lb (96.2kg) SpO2 97% LMP 01/05/2024 BMI 36.42 kg/(m^2). GENERAL: pleasant, female in no apparent distress HEENT: Normocephalic, atraumatic, mucus membranes moist, and no lesions NECK: Supple, full range of motion, no adenopathy, and thyroid normal DERMATOLOGY: Normal, without lesions, non-icteric, and non-hirsute BREAST: soft, non-tender, symmetric, no dominant mass, normal nipple-areolar complex, no lymphadenopathy, and no nipple discharge CHEST: Normal inspiratory effort ABDOMEN: soft, non-tender, and no masses PELVIC: external genitalia normal, normal Bartholin's glands, urethra, [place]'s glands, no vulvar lesions, no cervical lesions, good vaginal support, physiologic discharge present, normal appearing perineal body and perianal region BIMANUAL: uterus normal size, shape and consistency, no adnexal masses, and non-tender RECTOVAGINAL: deferred. NEURO: alert and oriented x3,exam grossly non-focal EXTREMITIES: normal ASSESSMENT/PLAN: 1) Health maintenance: Pap done with reflex HPV. HPV vaccine: info provided 2) Contraception: Depo Provera. Reviewed r/b. To return for nurse visit. 3) STD screening: Accepted full STD check 4) Follow up one year or sooner as needed Ariel Gutierrez APRN.SARAH documented in this encounterThe [facility] Telephone encounter Note * Telephone Encounter - Virgilio Ramsey PA-C - 01/13/2024 9:06 AM EDT The following approved medication requests have been transmitted electronically. Requested Prescriptions Signed Prescriptions Disp Refills cloBAZam (ONFI) 10 mg tab tablet 360 tablet 1 Sig: Take 2 tablets by mouth two times a day for 180 days. Authorizing Provider: VIRGILIO RAMSEY PA-C [facility]08-13-2024 Miscellaneous Notes* Telephone Encounter - Virgilio Ramsey PA-C - 01/13/2024 9:06 AM EDT The following approved medication requests have been transmitted electronically. Requested Prescriptions Signed Prescriptions Disp Refills cloBAZam (ONFI) 10 mg tab tablet 360 tablet 1 Sig: Take 2 tablets by mouth two times a day for 180 days. Authorizing Provider: VIRGILIO RAMSEY PA-C * Telephone Encounter - Isabell Gallegos - 01/13/2024 8:33 AM EDT Prescription Refill: Requested by: pharmacy Please E-Scribe Caller Contact Number: Pharmacy Name: [facility] Pharmacy Number: [phone] Generic/ brand: 30 or 90 day supply requested: 90 Last appointment: 07/16/23 Next Appointment: 01/23/[address] Tellez documented in this encounterThe [facility]08-13-2024 Telephone encounter Note * Telephone Encounter - Isabell Gallegos - 01/13/2024 8:33 AM EDT Prescription Refill: Requested by: pharmacy Please E-Scribe Caller Contact Number: Pharmacy Name: [facility] Pharmacy Number: [phone] Generic/ brand: 30 or 90 day supply requested: 90 Last appointment: 07/16/23 Next Appointment: 01/23/[address] Tellez [facility]05-31-[facility]24 Telephone encounter Note* Telephone Encounter - Ladan No RN - 10/31/2023 11:06 AM EDT PA approved. Expiration Date: October 28, 2024. Informed pharmacy. Medication ordered for 11/02. Informed patient. Ladan No RN [facility]05-31-2024 Miscellaneous Notes* Telephone Encounter - Ladan No RN - 10/31/2023 11:06 AM EDT PA approved. Expiration Date: October 28, 2024. Informed pharmacy. Medication ordered for 11/02. Informed patient. Ladan No RN * Telephone Encounter - Ladan No RN - 10/30/2023 5:00 PM EDT PA completed via [facility] Agrcia: [id number] Ladan No RN * Telephone Encounter - Modesta Washington - 10/30/2023 3:56 PM EDT Prior Authorization Needed: Received by: Fax Requested by (pharmacy name): [facility] Phone number: [phone] Name of medication: perampanel (FYCOMPA) 4 mg tablet Strength and dosage: 4mg [place] [facility] [id number] BIN#: Group #: [id number] Patient of Dr. Tellez documented in this encounterThe [facility]05-30-2024 Telephone encounter Note * Telephone Encounter - Ladan No RN - 10/30/2023 5:00 PM EDT PA completed via [facility] Garcia: [id number] Ladan No RN [facility]05-30-2024 Telephone encounter Note* Telephone Encounter - Modesta Washington - 10/30/2023 3:56 PM EDT Prior Authorization Needed: Received by: Fax Requested by (pharmacy name): [facility] Phone number: [phone] Name of medication: perampanel (FYCOMPA) 4 mg tablet Strength and dosage: 4mg Insurance company name and phone #: [employer] GARCIA #: [id number] BIN#: Group #: [id number] Patient of Dr. Tellez [facility]05-30-2024 Telephone encounter Note* Telephone Encounter - Malissa Rocha PA-C - 10/30/2023 11:21 AM EDT The following approved medication requests have been transmitted electronically. Requested Prescriptions Signed Prescriptions Disp Refills perampanel (FYCOMPA) 4 mg tablet 90 tablet 0 Sig: Take 1 tablet by mouth daily at bedtime for 90 days. Authorizing Provider: MALISSA ROCHA PA-C [facility]05-30-2024 Miscellaneous Notes* Telephone Encounter - Malissa Rocha PA-C - 10/30/2023 11:21 AM EDT The following approved medication requests have been transmitted electronically. Requested Prescriptions Signed Prescriptions Disp Refills perampanel (FYCOMPA) 4 mg tablet 90 tablet 0 Sig: Take 1 tablet by mouth daily at bedtime for 90 days. Authorizing Provider: MALISSA ROCHA PA-C * Telephone Encounter - Isabell Gallegos - 10/30/2023 10:39 AM EDT Prescription Refill: Requested by: patient Please E-Scribe Caller Contact Number: [facility] Number: [phone] Generic/ brand: 30 or 90 day supply requested: 90 Last appointment: 10/29/23 Next Appointment: 01/23/[address] Tellez documented in this encounterThe [facility]05-30-2024 Telephone encounter Note * Telephone Encounter - Isabell Gallegos - 10/30/2023 10:39 AM EDT Prescription Refill: Requested by: patient Please E-Scribe Caller Contact Number: [facility] Pharmacy Number: [phone] Generic/ brand: 30 or 90 day supply requested: 90 Last appointment: 10/29/23 Next Appointment: 01/23/[address] Tellez [facility]04-29-[facility] Telephone encounter Note* Telephone Encounter - Shira Duarte RN - 09/29/2023 11:22 AM EDT Patient called and appointment scheduled. Shira Duarte RN [facility]04-29-2024 Miscellaneous Notes* Telephone Encounter - Shira Duarte RN - 09/29/2023 11:22 AM EDT Patient called and appointment scheduled. Shira Duarte RN * Telephone Encounter - Nida Shepherd - 09/29/2023 10:57 AM EDT Patient is requesting sooner appointment for STD testing. Patient declined to be examined at [facility] care. Please notify patient if she is needing to be examined sooner than scheduled appointment on 10/24/23. documented in this encounterThe [facility]04-29-2024 Telephone encounter Note * Telephone Encounter - Nida Shepherd - 09/29/2023 10:57 AM EDT Patient is requesting sooner appointment for STD testing. Patient declined to be examined at [facility]. Please notify patient if she is needing to be examined sooner than scheduled appointment on 10/24/23. [facility]04-12-2024 Miscellaneous Notes* Telephone Encounter - Miranda Tadeo RN - 09/12/2023 8:45 AM EDT Left message for patient to call office. Is patient wanting to have the Nexplanon inserted today? If so, Dr. Mcdaniel asked that she come in at 2:20 or 2:50 instead. (Please make the 1:40 a 20 min visitif she comes in at one of those times instead) Miranda Tadeo, RN documented in this encounterThe [facility]03-12-2024 Miscellaneous Notes* Telephone Encounter - Ladan No RN - 08/12/2023 10:46 AM EDT 07/16/2023 Increased VNS from 1 to 1.25 mA. We discussed continued same dose of Fycompa for now at 4 mg QHS aslowering doses resulted in absence seizures and drops. ASM levels from Jan 2023 shows normal Keppra, LCM and ZNS levels. PLAN: Decrease Continue AEDs at same doses . Fycompa to 4 mg QHS . Keppra 3000 mg BID Vimpat 300 mg BID Onfi 20 mg BID Zonisamide 300 mg BID Klonapin 0.5 mg TID Ethosuzimide (Zarontin) 250 mg BID to be taken with food. Future options: Follow up Epilepsy pharmacy team- if seizures are reasonably controlled, we will reduce Keppra and Vimpat. Attempts to reduce Fycompa resulted in recurrence of seizures. AEDs not tried yet: Lamictal, Xcopri, Epidiolex. Latest Ref Rng 01/09/2023 Ammonia 11 - 51 umol/L 53 (H) Latest Ref Rng 01/09/2023 Protein, Total 6.3 - 8.0 g/dL 6.9 Albumin 3.9 - 4.9 g/dL 4.4 Calcium 8.5 - 10.2 mg/dL 9.4 Bilirubin, Total 0.2 - 1.3 mg/dL <0.2 (L) Alkaline Phosphatase 34 - 123 U/L 155 (H) AST 13 - 35 U/L 27 Glucose 74 - 99 mg/dL 91 BUN 7 - 21 mg/dL 9 Creatinine 0.58 - 0.96 mg/dL 0.89 Sodium 136 - 144 mmol/L 141 Potassium 3.7 - 5.1 mmol/L 3.6 (L) Chloride 97 - 105 mmol/L 113 (H) CO2 22 - 30 mmol/L 16 (L) Anion Gap 9 - 18 mmol/L 12 ALT 7 - 38 U/L 52 (H) eGFR >=60 mL/min/1.73m 95 Ladan No RN documented in this encounterThe [facility]03-04-2024 Miscellaneous Notes* Telephone Encounter - Ladan No RN - 08/04/2023 3:51 PM EST Called pharmacy with [place] on the line. Medication filled. Ladan No RN documented in this encounterThe [facility]02-14-2024 NoteHNO ID: [id number] Author: RUBEN TELLEZ MD Service: ? Author Type: Physician Type: Progress Notes Filed: 07/16/2023 12:13 Note Text: [facility] Patient Name: Kiki Ware Date of : 2000 ESTABLISHED EPILEPSY CLINIC NOTE 07/16/2023 10:40 AM Reason for Visit: Follow Up, Epilepsy, and VNS Visit Clinical Summary: Ms. Ware is a 22 year old right-handed female [facility] in [facility]. There is no one accompanying the patient during today's visit. 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 Mother reports that she was at school. A week later she experienced another one. She did not experience another one until she was 12 year old when she experienced a prolonged GTC seizure for 10 minutes. AT that time she was started on Keppra. Keppra decreased the frequency of GTC seizures but AEDs were changed or added overtime. Mother thinks that when Depakote was added seizures became better controlled. Levels were high at some point and AEDs changes continued to be made: Mother reports different seizure types overtime: 1.GTC seizures, her last one was 2 years ago 2. Eye fluttering with absence at times that they can occur daily. They can occur daily. These episodes began at age [age] year old 3. Head drops for few seconds. She may fall or not with these events. No LOC. These events can occur 2-3 times a week. 4. Arms jerks or whole body jerks that can happen when she is watching TV or sleeping. They may occur daily as well. She bejarano snot recall when did she began experiencing them. Patient was admitted to [facility] with Breakthrough seizures a few days after she delivered her baby in August 2022. Hospital stay was complicated by multiple clusters of generalized seizures (most of them untested, but was dialeptic with eye lid fluttering when tested). Several AED changes were made eventually adding Ethosuximide. Nexplanon was explanted and Depo-provera was used in its place as patient felt that her seizures were worse after nexplanon. AED changes during 08/2022 admission Keppra 4000 mg BID -> 2000 mg BID (10/01/2022)-> 3000 BID (10/03/2022) Level elevated at 113.5 on 09/29/2022 Onfi 20 mg BID level normal on 09/26/2022 Zonisamide 300 mg BID level normal on 09/26 Vimpat 250 mg BID level normal on 09/26-> 300 BID (10/03/2022) Fycompa (perampanel) 2mg started 09/30/2022-> 4 mg (10/02/2022) [ bolus of 8 mg given on 10/01/2022]-> 6mg [10/03] VPA 250 BID [10/02/2022]-> D/C 10/06/2022 Ammonia levels were elevated. Klonapin 0.5 mg BID [ 10/03]-> 0.5 mg TID [10/04/2022] Zarontin 250 mg BID [10/04/2022] Current AEDs ? Keppra 3000 mg BID ? Vimpat 300 mg BID ? Onfi 20 mg BID ? Zonisamide 300 mg BID ? Fycompa 6 mg QHS ? Klonapin 0.5 mg TID ? Ethosuzimide (Zarontin) 250 mg BID to be taken with food. Folic acid 1 mg daily VNS implanted in Jan 2017 Patient was unable to finish high school due to frequenct seizures. Mother reports that she used to be in an accelarated class in the past. 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 In 2016 she received IV steroids Interval Seizure History Since last visit, she has not had major convulsions. She went seizure free for a few months. Recently she has been told that she had absence seizures. Message from pt's mother also reports a few head drops- Fycompa was increased back to 4 mg QHS. Total # of Current Anti-seizure Medications: Side Effects to Current Anti-seizure Medications: Seizure Frequency at First Visit: 3 per day Longest Seizure-free Interval: 4 years Number of seizure types: 4 Hx of generalized tonic-clonic seizures: Yes Status Epilepticus or clusters: No Postictal Agitation: No Driving: No Lives Alone: No CURRENT OUTPATIENT ANTISEIZURE MEDICATIONS (as of the start of the encounter) perampanel (FYCOMPA) 4 mg tablet Take 1 tablet by mouth daily at bedtime for 90 days. clonazePAM (KLONOPIN) 0.5 mg tablet Take 1 tablet by mouth three times a day for 180 days. lacosamide (VIMPAT) 150 mg tab Take 2 tablets by mouth two times a day for 180 days. ethosuximide (ZARONTIN) 250 mg capsule Take 1 capsule by mouth two times a day. cloBAZam (ONFI) 10 mg tab tablet Take 2 tablets by mouth twice daily for 180 days. zonisamide (ZONEGRAN) 100 mg capsule Take 3 capsules by mouth twice daily. levETIRAcetam (KEPPRA) 1,000 mg tablet Take 3 tablets by mouth twice daily. Prior Anti-seizure Therapies: Trial Adequacy: Max Daily Dose Achieved: Side Effects: Effectiveness: Comments: Clobazam Ethosuximide Lac (more content not included)...[facility]02-14-2024 History of Present illness Narrative* Ruben Tellez MD - 07/16/2023 12:05 PM EST Images from the original note were not included. [facility] Patient Name: Kiki Ware Date of : 2000 ESTABLISHED EPILEPSY CLINIC NOTE 07/16/2023 10:40 AM Reason for Visit: Follow Up, Epilepsy, and VNS Visit Clinical Summary: Ms. Ware is a 22 year old right-handed female [facility] in [facility]. There is no one accompanying the patient during today's visit. 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 Mother reports that she was at school. A week later she experienced another one. She did not experience another one until she was 12 year old when she experienced a prolonged GTC seizure for 10 minutes. AT that time she was started on Keppra. Keppra decreased the frequency of GTCseizures but AEDs were changed or added overtime. Mother thinks that when Depakote was added seizures became better controlled. Levels were high at some point and AEDs changes continued to be made: Mother reports different seizure types overtime: 1.GTC seizures, her last one was 2 years ago 2. Eye fluttering with absence at times that they can occur daily. They can occur daily. These episodes began at age [age] year old 3. Head drops for few seconds. She may fall or not with these events. No LOC. These events can occur 2-3 times a week. 4. Arms jerks or whole body jerks that can happen when she is watching TV or sleeping. They may occur daily as well. She bejarano snot recall when did she began experiencing them. Patient was admitted to [facility] with Breakthrough seizures a few days after she delivered matty in August 2022. Hospital stay was complicated by multiple clusters of generalized seizures (most of them untested, but was dialeptic with eye lid fluttering when tested). Several AED changes weremade eventually adding Ethosuximide. Nexplanon was explanted and Depo-provera was used in its placeas patient felt that her seizures were worse after nexplanon. AED changes during 08/2022 admission Keppra 4000 mg BID -> 2000 mg BID (10/01/2022)-> 3000 BID (10/03/2022) Level elevated at 113.5 on 09/29/2022 Onfi 20 mg BID level normal on 09/26/2022 Zonisamide 300 mg BID level normal on 09/26 Vimpat 250 mg BID level normal on 09/26-> 300 BID (10/03/2022) Fycompa (perampanel) 2mg started 09/30/2022-> 4 mg (10/02/2022) [ bolus of 8 mg given on 10/01/2022]-> 6mg [10/03] VPA 250 BID [10/02/2022]-> D/C 10/06/2022 Ammonia levels were elevated. Klonapin 0.5 mg BID [ 10/03]-> 0.5 mg TID [10/04/2022] Zarontin 250 mg BID [10/04/2022] Current AEDs Keppra 3000 mg BID Vimpat 300 mg BID Onfi 20 mg BID Zonisamide 300 mg BID Fycompa 6 mg QHS Klonapin 0.5 mg TID Ethosuzimide (Zarontin) 250 mg BID to be taken with food. Folic acid 1 mg daily VNS implanted in Jan 2017 Patient was unable to finish high school due to frequenct seizures. Mother reports that she used to be in an accelarated class in the past. 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 In 2016 she received IV steroids Interval Seizure History Since last visit, she has not had major convulsions. She went seizure free for a few months. Recently she has been told that she had absence seizures. Message from pt's mother also reports a few head drops- Fycompa was increased back to 4 mg QHS. Total # of Current Anti-seizure Medications: Side Effects to Current Anti-seizure Medications: Seizure Frequency at First Visit: 3 per day Longest Seizure-free Interval: 4 years Number of seizure types: 4 Hx of generalized tonic-clonic seizures: Yes Status Epilepticus or clusters: No Postictal Agitation: No Driving: No Lives Alone: No CURRENT OUTPATIENT ANTISEIZURE MEDICATIONS (as of the start of the encounter) perampanel (FYCOMPA) 4 mg tablet Take 1 tablet by mouth daily at bedtime for 90 days. clonazePAM (KLONOPIN) 0.5 mg tablet Take 1 tablet by mouth three times a day for 180 days. lacosamide (VIMPAT) 150 mg tab Take 2 tablets by mouth two times a day for 180 days. ethosuximide (ZARONTIN) 250 mg capsule Take 1 capsule by mouth two times a day. cloBAZam (ONFI) 10 mg tab tablet Take 2 tablets by mouth twice daily for 180 days. zonisamide (ZONEGRAN) 100 mg capsule Take 3 capsules by mouth twice daily. levETIRAcetam (KEPPRA) 1,000 mg tablet Take 3 tablets by mouth twice daily. Prior Anti-seizure Therapies: Trial Adequacy: Max Daily Dose Achieved: Side Effects: Effectiveness: Comments: Clobazam Ethosuximide Lacosamide Levetiracetam Perampanel Vagal Nerve Stimulation Valproate hyperammonemia Zonisamide Clonazepam Comorbidities: None Episode Description: SEIZURE TYPE 1: GTC Onset: 8 YO Aura: no Loss of awareness: Duration: Frequency: Last occurred: yes less than a minute SEIZURE TYPE 2: absence Onset: 17 yo Aura: no Loss of awareness: Duration: Frequency: Last occurred: yes less than a minute SEIZURE TYPE 3: head drop Onset: 20 yo Loss of awareness: Duration: Frequency: Last occurred: no less than a minute SEIZURE TYPE 4: myoclonic jerks Onset: 20 yo Aura: no Loss of awareness: Duration: Frequency: Last occurred: no less than a minute Patient Entered Data: EPILEPSY SCORE 01/13/2023 1:54 PM 09/20/2022 1:40 PM 08/13/2022 2:51 PM First answer obtained - 02/12/2022 2:49 PM PHQ-9 SCORE 0 [None-Minimal Depression] 0 [None-Minimal Depression] 0 [None- Minimal Depression] - GEORGE 2 SCORE 0 [Negative Anxiety Screen] 0 [Negative Anxiety Screen] 0 [Negative Anxiety Screen] - GEORGE 7 SCORE - - - - QOLIE-10 SCORE (0=worst; 100=best QoL - higher scores represent better function) 12 11 11 - LSSS SCORE (0- no seizures 100- most severe possible seizures) - - - - C-SSRS SCREEN - - - - On average, how many hours of sleep do you get in a 24-hour period? - - - - PROMIS Sleep Disturbance T-SCORE - - - 37 [within normal limits] Have you been diagnosed with Sleep Apnea? - - - - Seizure risk factors: Brain Tumor No HAT BINDER Infections No Developmental Delay No Family history of seizures No Febrile Seizure Unanswered Complications Yes Stroke No Traumatic Brain Injury Yes Previous Epilepsy Evaluations Bedside EEG [facility] 09/2022 Continuous Video-EEG was reviewed from 0424 on 10/06/22 to 042 on 10/07/22 and is suggestive of a bilateral cortical dysfunction maximum in the left hemisphere and generalized epileptogenicity. There was one generalized EEG seizures seen in this recording at 0842 on 10/06/22 lasting 3 minutes 30 seconds with clinical signs of apparent decreased responsiveness/starring off (patient was not tested during the time). There is also evidence of a moderate diffuse encephalopathy. Routine EEG ([facility], 09/08/2020): During this awake and sleep epoch of continuous digital EEG/Video monitoring with scalp electrodes, the EEG was abnormal due to the presence of mild diffuse background slowing, excess of low voltage fast activity(medication related) and frequent, most likely interictal bursts of waxing and waning generalized, irregular polyspike and slow ave discharges while awake and asleep and high voltage runs of paroxysmal fast activity seen when asleep. No unequivocal seizures were recorded. 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 Video EEG ([facility], 12/16 - 12/19/2019): Abundant generalized 2.0-2.5 Hz sharp and slow wave seizures, as well as bursts of generalized beta- and gamma-frequency spikes during sleep, are consistent with a primary generalized epilepsy, such as Paul-Gastaut Sydnrome. Electrical status epilepticus of sleep (ESES) was not seen. Video EEG ([facility], 03/15/2019): During 25 hours and 50 minutes of continuous digital EEG/Video monitoring with scalp electrodes, the EEG was abnormal given the presence of intermittent background theta slowing, drowsiness and sleep activated spike/polyspike and slow wave complexes and bursts of paroxysmal generalized fast activity noted during NREM sleep. Given the electrographic features, the patten of the paroxysmal fast activity likely represented subclinical seizures. In comparison to previous EEGs, the background was improved with the distinct lack of spike/polyspike and slow wave complexes noted during wakefulness. The fast activity bursts in sleep have a relatively similar morphology and frequency as noted in prior studies. These findings are consistent with the patients known history of refractory generalized epilepsy with overall background improvement during wakefulness. Video EEG ([facility], 09/01/2017): During 20 hours and 42 minutes of continuous digital EEG/Video monitoring with scalp electrodes, the EEG was abnormal given the presence of sleep activated generalized bursts of fast repetitive spikes along with polyspike>spike and slow wave complexes. The morphology and electrographic evolution with after going slowing most likely represented subclinical seizures during sleep. In comparison to previous EEGs, consistent findings were noted during this study as the patients last study in 05/2017. No new events of concern were recorded. These findings are consistent with her known history of refractory generalized epilepsy. Video EEG ([facility], 05/06/2017): During 21 hours and 2 minutes of continuous digital EEG/Video monitoring with scalp electrodes, the EEG was abnormal due to the presence of sleep activated paroxysmal bursts of fast repetitive spikes and spike/polyspike and slow wave complexes, which due to e lectrographic evolution and aftermath slowing most likely represent subclinical seizures. In comparison to previous EEGs, this study showed significant improvement with the lack of interictal discharges in the awake background, but the sleep portion showed only mild improvement in the frequency and duration of the discharges. These findings are consistent with her known history of refractory generalized epilepsy with overall improvement on current treatment. Video EEG ([facility], 01/25/2017): During 29 hours of continuous digital EEG/Video monitoringwith scalp electrodes, the EEG was abnormal given the presence of 1. Diffuse background slowing 2. Numerous subclinical seizures during wakefulness and sleep 3. Frequent runs of epileptiform discharges composed of polyspike/spike and slow wave in addition to sleep activated bursts of paroxysmal fast activity. In comparison to previous EEGs, there was no significant changes in the ictal and interictal discharges. 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 Video EEG ([facility], 08/23/2016): During 61 hours and 44 minutes of continuous digital EEG/Video monitoring with scalp electrodes, the EEG was severely abnormal due to the presence of: 1. Reoccurring subclinical seizures during awake (Type A) and sleep (Type B), characterized by different electrographic patterns (see ictal above) 2. Polyspike and slow wave discharges 3. Diffuse background slowing The patient received IV dose of Vimpat with a subtle--brief--improvement in the EEG pattern. Depakote was discontinued. These findings could be seen in patient's with epileptic encephalopathy and areconsistent with an active, refractory generalized epilepsy. Video EEG ([facility], 08/06/2016): During 22 hours of continuous digital EEG/Video monitoring with scalp electrodes, the EEG was Abnormal. One clinical seizure was observed consisting of confusion and atypical 1-2hz spike wave discharges lasitng 21. In sleep multiple subclincal bursts of generalized spike followed by 20 hz actiity lasting 3-5 sec are observed. In addition multiple burst of difuse beta as seen below are noted not associated with clincal change. EEG (02/29/16): INTERPRETATION: This is an abnormal awake and asleep EEG. The atypical spike wave pattern is consistant with a primary generalized seizure disorder. Video EEG ([facility], 02/12/2016): During 41 hour 45 minutes of continuous digital EEG/Video monitoring with scalp electrodes, the EEG was abnormal due to the presence of recurring subclinical seizures and generalized polyspike and slow wave discharges occurring interictally. There were a fewseizures associated with subtle myoclonic jerks and delays in response. One event of room shaking was captured and was not associated with any change on the EEG background, therefore was not epileptic in the origin. In comparison to the previous EEG, similar interictal discharge was noted with improvement during the first day of the stay and subsequent increase in frequency during the rest of the stay. No Electrical Status Epilepticus of slow wave Sleep was seen, although the morphology of the discharges was composed predominantly of polyspikes, while before it was a mixture of spike and polyspike-slow wave complexes. The patient received a treatment of a high dose IV steroids over 3 day admission without a significant improvement in the EEG pattern. These findings are consistent with an active, refractory generalized epilepsy. Video EEG ([facility], 12/04-12/08/2015): During 65 hours and 54 minutes of continuous digital EEG/Video monitoring with scalp electrodes, the EEG was abnormal due to: Multiple myoclonic seizures Electrical status epilepticus of sleep comprised of ~80% of her slow wave sleep. Frequent and long runs of generalized spike/ polyspike and slow wave discharges with a bifrontal maximum. Posterior dominant rhythm <8 Hz. Numerous patient events were captured when the patient reported to have eye flutter, headache and staring, but it was difficult to associate clinical correlate with the EEG due to very frequent interictal discharges and timing of epileptiform burst and button push. At times, there were no epileptiform discharges noted during the episode raising concern of all those events to be non epileptic. In comparison to previous EEGs, similar discharges were noted and appeared to increase in frequency. This is consistent with epileptic seizures of a generalized mechanism and epileptic encephalopathy. Routine EEG ([facility], 03/22/14): This is an abnormal awake and asleep EEG due to very frequent generalized polyspikes, spike-wave complexes and EEG seizure pattern that developed during photic stimulation. This EEG is indicative of an active generalized epilepsy. MRI brain wo contrast ([facility], 01/23/2016): unremarkable exam MRI brain wo contrast ([facility], 03/22/2014): Limited exam due to patient motion. No gross intracranial abnormalities identified. CT head wo contrast ([facility], 11/28/2019): No acute intracranial abnormality Other caregivers: Primary Care Provider: No primary care provider on file. Current Outpatient Medications Medication Sig medroxyPROGESTERone (DEPO-PROVERA) 150 mg/mL Inject 1 mL intramuscularly every 12 weeks. folic acid 1 mg tablet Take 2 tablets by mouth twice daily. zonisamide (ZONEGRAN) 100 mg capsule Take 3 capsules by mouth two times a day. perampanel (FYCOMPA) 4 mg tablet Take 1 tablet by mouth daily at bedtime for 90 days. levETIRAcetam (KEPPRA) 1,000 mg tablet Take 3 tablets by mouth two times a day. lacosamide (VIMPAT) 150 mg tab Take 2 tablets by mouth two times a day for 180 days. ethosuximide (ZARONTIN) 250 mg capsule Take 1 capsule by mouth two times a day. clonazePAM (KLONOPIN) 0.5 mg tablet Take 1 tablet by mouth three times a day for 180 days. cloBAZam (ONFI) 10 mg tab tablet Take 2 tablets by mouth two times a day for 180 days. FERROUS SULFATE ORAL Take 325 mg by mouth daily at bedtime. (Patient not taking: Reported on 07/16/2023) 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 year old PAST SURGICAL HISTORY Procedure Laterality Date DELIVERY ONLY 09/24/2022 LTCS PAST SURGICAL HISTORY OF VNS implant, vagal nerve stimulator- approx in 2016 FAMILY HISTORY Problem Relation Age of Onset No Known Problems Father Thyroid Cancer Mother No Known Problems Brother Asthma Brother outgrown asthma Allergies Brother other (drug overdose) Brother other (MVA) Brother Allergies Brother No Known Problems Sister other (retina cancer) Maternal Grandfather Uterine Cancer Maternal Grandmother No Known Problems Paternal Grandfather COPD Paternal Grandmother Diabetes Maternal Aunt SOCIAL HISTORY: -Lives in [place], [place] -Patient lives alone? No -Vocation: -Education: -Cigarette, alcohol, substance use: -Functional status: independent in activities of daily living -Patient driving? No Review of Systems All other systems reviewed and are negative. VITAL SIGNS: BP 131/88 Pulse 112 Resp 18 Ht 160 cm (5' 3) Wt 88.9 kg (196 lb) LMP (LMP Unknown) No BMI 34.72 kg/m General Examination: She is alone. General: Awake, alert, interactive, no acute distress, good nutritional status, normal development,well-kept Neurological Exam Mental Status Alert, fully oriented, with normal speech and affect. Some difficulty in processing speed Cranial Nerves Face symmetric. Hearing intact with conversational speech. Motor Examination and Coordination Motor examination with normal bulk. Normal coordination. No adventitious movements or significant tremor. Gait Casual gait normal. PATIENT FELL DOWN WHILE GOING OUT OF THE CLINIC AFTER OUR VISIT. NO LOSS OF CONSCIOUSNESS. ABLE TO STAND UP IMMEDIATELY FOLLOWING THE FALL. NO APPARENT FOCAL DEFICITS IMPRESSION: Kiki Ware is a 22 year old woman with intractable generalized epilepsy with status epilepticus. She is currently on 7 AEDs and VNS. She had a prolonged hospital stay in August 2022 at [facility] where EEG showed frequent generalized seizures and abundant interictal discharges requiring escalation of AED therapy. Her seizures seemed to respond to Zarontin use which was the last medication added ( previously tried in 2017 but had abdominal pain). 07/16/2023 : Increased VNS from 1 to 1.25 mA. We discussed continued same dose of Fycompa for now at4 mg QHS as lowering doses resulted in absence seizures and drops. ASM levels from Jan 2023 shows normal Keppra, LCM and ZNS levels. PLAN: Decrease Continue AEDs at same doses . Fycompa to 4 mg QHS . Keppra 3000 mg BID Vimpat 300 mg BID Onfi 20 mg BID Zonisamide 300 mg BID Klonapin 0.5 mg TID Ethosuzimide (Zarontin) 250 mg BID to be taken with food. Future options: Follow up Epilepsy pharmacy team- if seizures are reasonably controlled, we will reduce Keppra and Vimpat. Attempts to reduce Fycompa resulted in recurrence of seizures. AEDs not tried yet: Lamictal, Xcopri, Epidiolex. Optimize VNS - upto 2 or 2.5 mA. We may also try higher duty cycle upto 30%. Data reviewed as above including: electronic medical record Education Seizure precautions - No driving in the [facility] until seizure free for 6 months. Please check with local state authorities for state specific driving regulations. - No operating heavy machines - No swimming without supervision or bathing in a bathtub due to risk of drowning in the event of aseizure. Patient may shower. - Avoid unsafe heights, including ladders, due to risk of fall-related injury in the event of a seizure. - Seizure precipitating factors discussed including not taking seizure medications as prescribed, stress, excessive caffeine intake, energy drinks, alcohol, sleep deprivation or any identifiable seizure precipitating factor. I discussed the risks, benefits and alternatives of the medical plan with the patient. Questions were answered. The patient agreed with the plan as discussed. FOLLOW-UP: Return in about 3 months (around 10/14/2023). I spent a total of 45 minutes on the date of the service which included: [id number] patient care preparing to see the patient completing clinical documentation obtaining and/or reviewing separately obtained history counseling and educating the patient/family/caregiver performing a medically appropriate examination ordering medications, tests, or procedures In addition to above I performed electronic analysis and programming of the VNS first 15 minutes [id number] time Ruben Tellez MD cc: Primary Care Physician: No primary care provider on file. No primary provider on file. Referring: Patient: Ms. Kiki Ware [id number] [facility] [id number] documented in this encounterThe [facility]02-14-[facility]24 Instructions* Patient Instructions* Ruben Tellez MD - 07/16/2023 11:56 AM EST Summary of the things we discussed today: Increased VNS settings from 1mA to 1.25mA current out put. Continue the same dose of Fycompa for now at 4 mg. We will have you follow up with our pharmacist Karla. Continue control as you are doing. Given the number of seizure medications you are on, it does increase the chances of complications and complications for babies. Seizure precautions - No driving in the [facility] until seizure free for 6 months. Please check with local state authorities for state specific driving regulations. - No operating heavy machines - No swimming without supervision or bathing in a bathtub due to risk of drowning in the event of aseizure. Patient may shower. - Avoid unsafe heights, including ladders, due to risk of fall-related injury in the event of a seizure. - Seizure precipitating factors discussed including not taking seizure medications as prescribed, stress, excessive caffeine intake, energy drinks, alcohol, sleep deprivation or any identifiable seizure precipitating factor. Ruben Tellez MD Associate Staff, Epilepsy [facility] July 16, 2023 Office phone: [phone] documented in this encounterThe [facility]12-01-2023 History of Present illness Narrative* Miranda Tadeo RN - 05/02/2023 11:39 AM EST Patient identified by name and date of . Kiki Ware is here for a Depo Provera injection. Patient brought medication. Date last injected: out of range - negative test Depo-Provera, 150 mg, administered IM right upper quadrant gluteus, Lot # [id number], expiration date 07/2024. Depo-Provera was given without incident. Date of last menses: No LMP recorded (lmp unknown). Irregular bleeding - No Menses ceased - Yes Medication verified by dispensing pharmacist. Patient instructed to return to clinic on 12 weeks. [email or web address] Provider Tracee Shaw CNM was present in office at time of injection. Patient reported that she has a foreign object in her rectum that was placed in preparation for anal sex. No intercourse occurred. The object has been there for 2 days. Patient has not been able to have a BM. Instructed to go to ER for evaluation. Patient voiced agreement. Miranda Tadeo RN documented in this encounterThe [facility]11-03-2023 Miscellaneous Notes* Telephone Encounter - Tuan Lynch, Research Coordinator - 04/04/2023 1:24 PM EDT Patient/Research Subject Name: Kiki Ware : 2000 IRB [id number]. Creating a Healthy L.I.F.E: Lifestyle Interventions For Epilepsy [facility] Coordinator: Jg Day MD, Residential Fee Appraiser: Tuan Lynch Research Jasmina and Email: [email or web address] Called to talk to Kiki Ware. Could not my leave name and phone number for patient to call back. I will try calling another day. Tuan Lynch Research Coordinator documented in this encounterThe [facility]10-30-2023 History of Present illness Narrative* Minerva Mcdaniel APRN.MEDICAL OFFICE COORDINATOR - 03/31/2023 7:35 PM EDT Subjective Came in with complaints of nausea back pain for about 10 days. Patient says she is on the Depo shotas of 02/27. Patient denies any abdominal pain burning when she urinates. Patient wants a test. The history is provided by the patient. No biblical languages professor was used. Back Pain Review of Systems Constitutional: Negative. Musculoskeletal: Positive for back pain. Skin: Negative. Objective Physical Exam Constitutional: Appearance: Normal appearance. Cardiovascular: Rate and Rhythm: Normal rate and regular rhythm. Heart sounds: Normal heart sounds. Pulmonary: Effort: Pulmonary effort is normal. Breath sounds: Normal breath sounds. Abdominal: General: Abdomen is flat. Bowel sounds are normal. Palpations: Abdomen is soft. There is no shifting dullness. Tenderness: There is no abdominal tenderness. There is no right CVA tenderness, left CVA tenderness, guarding or rebound. Negative signs include Hemphill's sign, Rovsing's sign, McBurney's sign, psoas sign and obturator sign. Neurological: Mental Status: She is alert. PAST MEDICAL HISTORY Diagnosis Date ADHD (attention deficit hyperactivity disorder) Anemia Anxiety Esophageal reflux Intractable epilepsy without status epilepticus (HCC) Prematurity of fetus 09/03/2022 Traumatic brain injury (HCC) concussion at age year old PAST SURGICAL HISTORY Procedure Laterality Date DELIVERY ONLY 09/24/2022 LTCS PAST SURGICAL HISTORY OF VNS implant, vagal nerve stimulator- approx in 2016 ALLERGIES Depakote [Divalproex] MEDICATIONS perampanel (FYCOMPA) 2 mg tab(s)^Take 1 tablet by mouth daily at bedtime for 180 days.^Disp: 90 tablet^Rfl: 1 clonazePAM (KLONOPIN) 0.5 mg tablet^Take 1 tablet by mouth three times a day for 180 days.^Disp: 270 tablet^Rfl: 1 lacosamide (VIMPAT) 150 mg tab^Take 2 tablets by mouth two times a day for 180 days.^Disp: 360 tablet^Rfl: 1 ethosuximide (ZARONTIN) 250 mg capsule^Take 1 capsule by mouth two times a day.^Disp: 180 capsule^Rfl: 1 medroxyPROGESTERone (DEPO-PROVERA) 150 mg/mL^Inject 1 mL intramuscularly every 12 weeks.^Disp: 1 mL^Rfl: 1 cloBAZam (ONFI) 10 mg tab tablet^Take 2 tablets by mouth twice daily for 180 days.^Disp: 360 tablet^Rfl: 1 zonisamide (ZONEGRAN) 100 mg capsule^Take 3 capsules by mouth twice daily.^Disp: 540 capsule^Rfl: 1 levETIRAcetam (KEPPRA) 1,000 mg tablet^Take 3 tablets by mouth twice daily.^Disp: 540 tablet^Rfl: 1 FERROUS SULFATE ORAL^Take 325 mg by mouth daily at bedtime.^Disp: ^Rfl: folic acid 1 mg tablet^Take 2 tablets by mouth twice daily.^Disp: 360 tablet^Rfl: 3 FAMILY HISTORY Problem Relation Age of Onset No Known Problems Father Thyroid Cancer Mother No Known Problems Brother Asthma Brother outgrown asthma Allergies Brother other (drug overdose) Brother other (MVA) Brother Allergies Brother No Known Problems Sister other (retina cancer) Maternal Grandfather Uterine Cancer Maternal Grandmother No Known Problems Paternal Grandfather COPD Paternal Grandmother Diabetes Maternal Aunt Social History Tobacco Use Smoking status: Never Smokeless tobacco: Never Tobacco comments: smoking outside per mom Vaping Use Vaping Use: Never used Substance Use Topics Alcohol use: Not Currently Drug use: Not Currently Types: Marijuana ASSESSMENT/PLAN: 1. Late menses - ICD9: 626.8, ICD10: N92.6 (primary diagnosis) - HCG QUAL UR B/O 2. Acute midline low back pain without sciatica - ICD9: 724.2, ICD10: M54.50 - UA DIP, URINE (POC) - URINE CULTURE No treatment at this time. Minerva Mcdaniel APRN.MEDICAL OFFICE COORDINATOR documented in this encounterThe [facility]09-28-2023 Miscellaneous Notes* Telephone Encounter - Evie Crane MD - 02/27/2023 8:11 AM EDT filed * Telephone Encounter - Zenia Tracy LPN - 02/26/2023 4:06 PM EDT Patient has nurse visit 02/28/2023 and needs refill sent to [facility]. Patient's last appointment was 12/02/2022 documented in this encounterThe [facility]09-12-2023 Miscellaneous Notes* Telephone Encounter - Patrick Arreola APRN.CNP - 02/11/2023 1:55 PM EDT The following approved medication requests have been transmitted electronically. Requested Prescriptions Signed Prescriptions Disp Refills perampanel (FYCOMPA) 2 mg tab(s) 30 tablet 0 Sig: Take 1 tablet by mouth daily at bedtime for 30 days. Authorizing Provider: PATRICK ARREOLA APRN.CNP * Telephone Encounter - Jossie Guerrero - 02/11/2023 1:41 PM EDT Prescription Refill: Requested by: parent Please E-Scribe Caller Contact Number: [phone] (home) Pharmacy Name: [facility] Number: [id number] Generic/ brand: Generic 30 or 90 day supply requested: 30 Last appointment: 02/04/23 Next Appointment: 03/24/[address] Tellez documented in this encounterThe [facility]09-06-2023 Miscellaneous Notes* Telephone Encounter - Karla Mcguire RPh - 02/05/2023 2:32 PM EDT Spoke with mother, and plan is to hold off on discontinuation of Fycompa. We will follow-up with levels and then adjust ASMs based on results. Karla Mcguire Rph documented in this encounterThe [facility]09-05-2023 History of Present illness Narrative* Karla Mcguire RPh - 02/04/2023 1:30 PM EDT [facility] Patient Name: Kiki JONES Date of : 2000 Epilepsy Pharmacy Consult - Consult Order Details Authorizing provider: N/A 07/15/2022 Epilepsy Pharmacy Consult Order - Location [facility] Communicate consult outcome with ordering provider (cc chart)? Yes Indication for Referral Epilepsy/Seizure Disorders Referral Goal(s) Comprehensive ASM mgmt Other: Please specify in comments First Appointment Within 2 weeks Referring Provider: Ruben Tellez [address] [facility] [id number] EPILEPSY PHARMACY CONSULT 02/04/2023 1:30 PM CHIEF COMPLAINT: Epilepsy HISTORY OF PRESENT ILLNESS Ms. Ware is a 22 year old female [facility] for [facility] consultation. Age of onset: 8 years CURRENT OUTPATIENT ANTISEIZURE MEDICATIONS (as of the start of the encounter) cloBAZam (ONFI) 10 mg tab tablet Take 2 tablets by mouth twice daily for 180 days. Taking medication as prescribed zonisamide (ZONEGRAN) 100 mg capsule Take 3 capsules by mouth twice daily. Taking medication as prescribed perampanel (FYCOMPA) 2 mg tab(s) Take 1 tablet by mouth daily at bedtime for 30 days. Taking medication as prescribed clonazePAM (KLONOPIN) 0.5 mg tablet Take 1 tablet by mouth three times daily for 180 days. Taking medication as prescribed lacosamide (VIMPAT) 150 mg tab Take 2 tablets by mouth twice daily for 180 days. Taking medication as prescribed levETIRAcetam (KEPPRA) 1,000 mg tablet Take 3 tablets by mouth twice daily. Taking medication as prescribed ethosuximide (ZARONTIN) 250 mg capsule Take 1 capsule by mouth twice daily. Taking medication as prescribed Prior Anti-seizure Therapies: Trial Adequacy: Max Daily Dose Achieved: Side Effects: Effectiveness: Comments: Clobazam Ethosuximide Lacosamide Levetiracetam Perampanel Vagal Nerve Stimulation Valproate hyperammonemia Zonisamide Clonazepam Current Outpatient Medications Medication Sig cloBAZam (ONFI) 10 mg tab tablet Take 2 tablets by mouth twice daily for 180 days. zonisamide (ZONEGRAN) 100 mg capsule Take 3 capsules by mouth twice daily. perampanel (FYCOMPA) 2 mg tab(s) Take 1 tablet by mouth daily at bedtime for 30 days. medroxyPROGESTERone (DEPO-PROVERA) 150 mg/mL Inject 1 mL intramuscularly every 12 weeks. clonazePAM (KLONOPIN) 0.5 mg tablet Take 1 tablet by mouth three times daily for 180 days. lacosamide (VIMPAT) 150 mg tab Take 2 tablets by mouth twice daily for 180 days. levETIRAcetam (KEPPRA) 1,000 mg tablet Take 3 tablets by mouth twice daily. ethosuximide (ZARONTIN) 250 mg capsule Take 1 capsule by mouth twice daily. FERROUS SULFATE ORAL Take 325 mg by mouth daily at bedtime. folic acid 1 mg tablet Take 2 tablets by mouth twice daily. 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 year old PAST SURGICAL HISTORY Procedure Laterality Date DELIVERY ONLY 09/24/2022 LTCS PAST SURGICAL HISTORY OF VNS implant, vagal nerve stimulator- approx in 2016 FAMILY HISTORY Problem Relation Age of Onset No Known Problems Father Thyroid Cancer Mother No Known Problems Brother Asthma Brother outgrown asthma Allergies Brother other (drug overdose) Brother other (MVA) Brother Allergies Brother No Known Problems Sister other (retina cancer) Maternal Grandfather Uterine Cancer Maternal Grandmother No Known Problems Paternal Grandfather COPD Paternal Grandmother Diabetes Maternal Aunt Social History Tobacco Use Smoking status: Never Smokeless tobacco: Never Tobacco comments: smoking outside per mom Vaping Use Vaping Use: Never used Substance Use Topics Alcohol use: Not Currently Drug use: Not Currently Types: Marijuana Seizure Data History of status epilepticus or clusters of seizures: No Does the patient live alone?: No Functional status: independent in activities of daily living MEDICATION ADHERENCE ASSESSMENT: - Patient reports missing some doses on a weekly basis. Missed morning dose, had seizure in the afternoon, then took AM ASMs late. Couple weeks ago. Utilizes pill box. IMPRESSION: - Since discharge from EMU, patient has had significant dizziness, fatigue, confusion, and nausea. During visit, patient was very fatigued and yawning. She states that she naps most of the day and sleeps about 10-12 hours of sleep per night. - Of note, ammonia was recently elevated. (Has history of elevated ammonia with Depakote). Unclear clear cause, potentially from zonisamide? - Patient reports improvement in seizure frequency, as last seizure was when patient was in the EMU. She reports one breakthrough short seizure in light of missed AM dose. She had a seizure in the afternoon and took AM doses after seizure. PLAN: - STOP Fycompa (since seizure was in light of missed dose). Continue Onfi 20 mg twice daily, Dyanzz889 mg twice daily, Keppra 3000 mg twice daily, zonisamide 300 twice daily, clonazepam 0.5 mg threetimes daily, and ethosuximide 250 mg twice daily with no changes. - Given history, will only adjust one ASM at a time. Per plan from Dr. Tellez, wean off Fycompa. Waiting for levels, will likely adjust Keppra following discontinuation of Fycompa. Pre- dose was 1500 mg BID. - Provided education on the importance of compliancy and encouraged utilization of tools that can aid in improving adherence, like alarm clock on cell phone. - Provided contact information and instructed patient to contact me if seizure frequency worsens orpresence of adverse effects prior to next appointment - Future considerations for ASMs not yet trialed: Lamictal, Xcopri, Epidiolex. FOLLOW-UP: Pharmacy 03/03/23 I spent a total of 20 minutes on the date of the service which included obtaining and/or reviewing separately obtained history and counseling and educating the patient/family/caregiver. Karla Mcguire RPh documented in this encounterThe [facility]08-28-2023 Miscellaneous Notes* Telephone Encounter - Patrick Arreola APRN.CNP - 01/27/2023 3:38 PM EDT The following approved medication requests have been transmitted electronically. Requested Prescriptions Signed Prescriptions Disp Refills cloBAZam (ONFI) 10 mg tab tablet 360 tablet 1 Sig: Take 2 tablets by mouth twice daily for 180 days. Authorizing Provider: PATRICK ARREOLA zonisamide (ZONEGRAN) 100 mg capsule 540 capsule 1 Sig: Take 3 capsules by mouth twice daily. Authorizing Provider: PATRICK ARREOLA APRN.MEDICAL OFFICE COORDINATOR * Telephone Encounter - Nasra Renae - 01/27/2023 2:34 PM EDT Prescription Refill: PATIENT OUT OF MEDICATION Requested by: parent Please Call in Caller Contact Number: [phone] (home) Pharmacy Name: [facility] Pharmacy Number: [id number] Generic/ brand: generic 30 or 90 day supply requested: 90 Last appointment: 12/12/22 Next Appointment: 03/27/[address] tellez documented in this encounterThe [facility]08-23-2023 History of Present illness Narrative* Karla Mcguire RPh - 01/22/2023 8:37 AM EDT Levels post- documented in this encounterThe [facility]08-15-2023 Miscellaneous Notes* Telephone Encounter - Esme Valera PA-C - 01/14/2023 1:12 PM EDT The following approved medication requests have been transmitted electronically. Requested Prescriptions Signed Prescriptions Disp Refills perampanel (FYCOMPA) 2 mg tab(s) 30 tablet 0 Sig: Take 1 tablet by mouth daily at bedtime for 30 days. Esme Valera PA-C * Telephone Encounter - Karla Mcguire RPh - 01/14/2023 11:59 AM EDT Discussed with Dr. Tellez, plan to reduce Fycompa to 2 mg (reduction from 4 mg 1 month ago). Requested Prescriptions Pending Prescriptions Disp Refills perampanel (FYCOMPA) 2 mg tab(s) Sig: Take 1 tablet by mouth daily at bedtime. Karla Mcguire Rph documented in this encounterThe [facility]08-14-2023 History of Present illness Narrative* Karla Mcguire RPh - 01/13/2023 2:00 PM EDT [facility] [place] [facility] Patient Name: Kiki JONES Date of : 2000 Epilepsy Pharmacy Consult - Consult Order Details Authorizing provider: N/A 07/15/2022 [facility]ilepsy Pharmacy Consult [facility] Communicate consult outcome with ordering provider (cc chart)? Yes Indication for Referral Epilepsy/Seizure Disorders Referral Goal(s) Comprehensive ASM mgmt Other: Please specify in comments First Appointment Within 2 weeks EPILEPSY PHARMACY CONSULT 01/13/2023 2:00 PM CHIEF COMPLAINT: Epilepsy HISTORY OF PRESENT ILLNESS Ms. Ware is a 22 year old female [facility] for pharmacy consultation. Age of onset: 8 years CURRENT OUTPATIENT ANTISEIZURE MEDICATIONS (as of the start of the encounter) perampanel (FYCOMPA) 4 mg tablet Take 1 tablet by mouth daily at bedtime for 180 days. Taking medication as prescribed clonazePAM (KLONOPIN) 0.5 mg tablet Take 1 tablet by mouth three times daily for 180 days. Taking medication as prescribed lacosamide (VIMPAT) 150 mg tab Take 2 tablets by mouth twice daily for 180 days. Taking medication as prescribed levETIRAcetam (KEPPRA) 1,000 mg tablet Take 3 tablets by mouth twice daily. Taking medication as prescribed ethosuximide (ZARONTIN) 250 mg capsule Take 1 capsule by mouth twice daily. Taking medication as prescribed zonisamide (ZONEGRAN) 100 mg capsule Take 3 capsules by mouth twice daily. Taking medication as prescribed cloBAZam (ONFI) 10 mg tab tablet Take 2 tablets by mouth twice daily for 180 days. Taking medication as prescribed Prior Anti-seizure Therapies: Trial Adequacy: Max Daily Dose Achieved: Side Effects: Effectiveness: Comments: Clobazam Ethosuximide Lacosamide Levetiracetam Perampanel Vagal Nerve Stimulation Valproate hyperammonemia Zonisamide Clonazepam Current Outpatient Medications Medication Sig perampanel (FYCOMPA) 4 mg tablet Take 1 tablet by mouth daily at bedtime for 180 days. medroxyPROGESTERone (DEPO-PROVERA) 150 mg/mL Inject 1 mL intramuscularly every 12 weeks. clonazePAM (KLONOPIN) 0.5 mg tablet Take 1 tablet by mouth three times daily for 180 days. lacosamide (VIMPAT) 150 mg tab Take 2 tablets by mouth twice daily for 180 days. levETIRAcetam (KEPPRA) 1,000 mg tablet Take 3 tablets by mouth twice daily. ethosuximide (ZARONTIN) 250 mg capsule Take 1 capsule by mouth twice daily. zonisamide (ZONEGRAN) 100 mg capsule Take 3 capsules by mouth twice daily. FERROUS SULFATE ORAL Take 325 mg by mouth daily at bedtime. cloBAZam (ONFI) 10 mg tab tablet Take 2 tablets by mouth twice daily for 180 days. folic acid 1 mg tablet Take 2 tablets by mouth twice daily. 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 year old PAST SURGICAL HISTORY Procedure Laterality Date DELIVERY ONLY 09/24/2022 LTCS PAST SURGICAL HISTORY OF VNS implant, vagal nerve stimulator- approx in 2015 FAMILY HISTORY Problem Relation Age of Onset No Known Problems Father Thyroid Cancer Mother No Known Problems Brother Asthma Brother outgrown asthma Allergies Brother other (drug overdose) Brother other (MVA) Brother Allergies Brother No Known Problems Sister other (retina cancer) Maternal Grandfather Uterine Cancer Maternal Grandmother No Known Problems Paternal Grandfather COPD Paternal Grandmother Diabetes Maternal Aunt Social History Tobacco Use Smoking status: Never Smokeless tobacco: Never Tobacco comments: smoking outside per mom Vaping Use Vaping Use: Never used Substance Use Topics Alcohol use: Not Currently Drug use: Not Currently Types: Marijuana Seizure Data History of status epilepticus or clusters of seizures: No Does the patient live alone?: No Functional status: independent in activities of daily living MEDICATION ADHERENCE ASSESSMENT: - Patient reports missing 0 doses on a weekly basis IMPRESSION: - Since discharge from EMU, patient has had significant dizziness, fatigue, confusion, and nausea. During visit, she had various times of confusion. - Of note, ammonia was recently elevated, and patient was concerned. (Has history of elevated ammonia with Depakote). Unclear clear cause, potentially from zonisamide? - At most recent visit with Dr. Tellez, it was instructed to reduce Fycompa by 2 mg to 4 mg at bedtime. - Patient reports improvement in seizure frequency, as last seizure was when patient was in the EMU. PLAN: - Decrease Fycompa to 2 mg daily, following discussion with Dr. Tellez. Continue Onfi 20 mg twice daily, Vimpat 300 mg twice daily, Keppra 3000 mg twice daily, zonisamide 300 twice daily, clonazepam 0.5 mg three times daily, and ethosuximide 250 mg twice daily with no changes. - Per plan from Dr. Tellez, if seizures do not worsen, wean off Fycompa. - Would recommend levels (Keppra likely elevated) contributing to adverse effects. - Provided education on the importance of compliancy and encouraged utilization of tools that can aid in improving adherence. - Provided contact information and instructed patient to contact me if seizure frequency worsens orpresence of adverse effects prior to next appointment - Future considerations for ASMs not yet trialed: Lamictal, Xcopri, Epidiolex. FOLLOW-UP: Pharmacy 02/04/23, Dr. Tellez 03/27/23 I spent a total of 35 minutes on the date of the service which included obtaining and/or reviewing separately obtained history and counseling and educating the patient/family/caregiver. Karla Mcguire RPh documented in this encounterThe [facility]07-13-2023 History of Present illness Narrative* Ruben Tellez MD - 12/12/2022 10:25 AM EDT Images from the original note were not included. [facility] Patient Name: Kiik Ware Date of : 2000 ESTABLISHED EPILEPSY CLINIC NOTE 12/12/2022 9:40 AM Reason for Visit: Follow Up, VNS Visit, and Epilepsy Clinical Summary: Ms. Ware is a 22 year old right-handed female [facility]. 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 Mother reports that she was at school. A week later she experienced another one. She did not experience another one until she was 12 year old when she experienced a prolonged GTC seizure for 10 minutes. AT that time she was started on Keppra. Keppra decreased the frequency of GTCseizures but AEDs were changed or added overtime. Mother thinks that when Depakote was added seizures became better controlled. Levels were high at some point and AEDs changes continued to be made: Mother reports different seizure types overtime: 1.GTC seizures, her last one was 2 years ago 2. Eye fluttering with absence at times that they can occur daily. They can occur daily. These episodes began at age [age] year old 3. Head drops for few seconds. She may fall or not with these events. No LOC. These events can occur 2-3 times a week. 4. Arms jerks or whole body jerks that can happen when she is watching TV or sleeping. They may occur daily as well. She bejarano snot recall when did she began experiencing them. Patient was admitted to [facility] with Breakthrough seizures a few days after she delivered herbaby in August 2022. Hospital stay was complicated by multiple clusters of generalized seizures (most of them untested, but was dialeptic with eye lid fluttering when tested). Several AED changes weremade eventually adding Ethosuximide. Nexplanon was explanted and Depo-provera was used in its placeas patient felt that her seizures were worse after nexplanon. AED changes during 08/2022 admission Keppra 4000 mg BID -> 2000 mg BID (10/01/2022)-> 3000 BID (10/03/2022) Level elevated at 113.5 on 09/29/2022 Onfi 20 mg BID level normal on 09/26/2022 Zonisamide 300 mg BID level normal on 09/26 Vimpat 250 mg BID level normal on 09/26-> 300 BID (10/03/2022) Fycompa (perampanel) 2mg started 09/30/2022-> 4 mg (10/02/2022) [ bolus of 8 mg given on 10/01/2022]-> 6mg [10/03] VPA 250 BID [10/02/2022]-> D/C 10/06/2022 Ammonia levels were elevated. Klonapin 0.5 mg BID [ 10/03]-> 0.5 mg TID [10/04/2022] Zarontin 250 mg BID [10/04/2022] Current AEDs Keppra 3000 mg BID Vimpat 300 mg BID Onfi 20 mg BID Zonisamide 300 mg BID Fycompa 6 mg QHS Klonapin 0.5 mg TID Ethosuzimide (Zarontin) 250 mg BID to be taken with food. Folic acid 1 mg daily VNS implanted in Jan 2017 Patient was unable to finish high school due to frequenct seizures. Mother reports that she used to be in an accelarated class in the past. 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 In 2015 she received IV steroids Total # of Current Anti-seizure Medications: 7 Side Effects to Current Anti-seizure Medications: lethargy, fatigue Seizure Frequency at First Visit: 3 per day Longest Seizure-free Interval: 4 years Number of seizure types: 4 Hx of generalized tonic-clonic seizures: Yes Status Epilepticus or clusters: No Postictal Agitation: No Driving: No Lives Alone: No Hospitalizations in Last 3 Months: Yes CURRENT OUTPATIENT ANTISEIZURE MEDICATIONS (as of the start of the encounter) clonazePAM (KLONOPIN) 0.5 mg tablet (Taking) Take 1 tablet by mouth three times daily for 180 days. lacosamide (VIMPAT) 150 mg tab (Taking) Take 2 tablets by mouth twice daily for 180 days. levETIRAcetam (KEPPRA) 1,000 mg tablet (Taking) Take 3 tablets by mouth twice daily. ethosuximide (ZARONTIN) 250 mg capsule (Taking) Take 1 capsule by mouth twice daily. cloBAZam (ONFI) 10 mg tab tablet (Taking) Take 2 tablets by mouth twice daily for 180 days. perampanel (FYCOMPA) 6 mg tab(s) Take 1 tablet by mouth daily at bedtime for 180 days. zonisamide (ZONEGRAN) 100 mg capsule Take 3 capsules by mouth twice daily. Prior Anti-seizure Therapies: Trial Adequacy: Max Daily Dose Achieved: Side Effects: Effectiveness: Comments: Clobazam Ethosuximide Lacosamide Levetiracetam Perampanel Vagal Nerve Stimulation Valproate hyperammonemia Zonisamide Clonazepam Comorbidities: None Episode Description: SEIZURE TYPE 1: GTC Onset: 8 YO Aura: no Loss of awareness: Duration: Frequency: Last occurred: yes less than a minute SEIZURE TYPE 2: absence Onset: 17 yo Aura: no Loss of awareness: Duration: Frequency: Last occurred: yes less than a minute SEIZURE TYPE 3: head drop Onset: 20 yo Loss of awareness: Duration: Frequency: Last occurred: no less than a minute SEIZURE TYPE 4: myoclonic jerks Onset: 20 yo Aura: no Loss of awareness: Duration: Frequency: Last occurred: no less than a minute Patient Entered Data: EPILEPSY SCORE 09/20/2022 1:40 PM 08/13/2022 2:51 PM 07/12/2022 10:56 AM First answer obtained - 02/12/2022 2:49 PM PHQ-9 SCORE 0 [None-Minimal Depression] 0 [None-Minimal Depression] 0 [None- Minimal Depression] - GEORGE 2 SCORE 0 [Negative Anxiety Screen] 0 [Negative Anxiety Screen] 0 [Negative Anxiety Screen] - GEORGE 7 SCORE - - - - QOLIE-10 SCORE (0=worst; 100=best QoL - higher scores represent better function) 11 11 11 - LSSS SCORE (0- no seizures 100- most severe possible seizures) - - - - C-SSRS SCREEN - - - - On average, how many hours of sleep do you get in a 24-hour period? - - - - PROMIS Sleep Disturbance T-SCORE - - - 37 [within normal limits] Have you been diagnosed with Sleep Apnea? - - - - Seizure risk factors: Brain Tumor No HAT BINDER Infections No Developmental Delay No Family history of seizures No Febrile Seizure No Complications Yes Stroke No Traumatic Brain Injury Yes [facility] Continuous Video-EEG was reviewed from 042 on 10/06/22 to 423 on 10/07/22 and is suggestive of a bilateral cortical dysfunction maximum in the left hemisphere and generalized epileptogenicity. There was one generalized EEG seizures seen in this recording at 0842 on 10/06/22 lasting 3 minutes 30 seconds with clinical signs of apparent decreased responsiveness/starring off (patient was not tested during the time). There is also evidence of a moderate diffuse encephalopathy. Routine EEG ([facility], 09/08/2020): During this awake and sleep epoch of continuous digital EEG/Video monitoring with scalp electrodes, the EEG was abnormal due to the presence of mild diffuse background slowing, excess of low voltage fast activity(medication related) and frequent, most likely interictal bursts of waxing and waning generalized, irregular polyspike and slow ave discharges while awake and asleep and high voltage runs of paroxysmal fast activity seen when asleep. No unequivocal seizures were recorded. 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 Video EEG ([facility], 12/16 - 12/19/2019): Abundant generalized 2.0-2.5 Hz sharp and slow wave seizures, as well as bursts of generalized beta- and gamma-frequency spikes during sleep, are consistent with a primary generalized epilepsy, such as Pendleton-Gastaut Sydnrome. Electrical status epilepticus of sleep (ESES) was not seen. Video EEG ([facility], 03/15/2019): During 25 hours and 50 minutes of continuous digital EEG/Video monitoring with scalp electrodes, the EEG was abnormal given the presence of intermittent background theta slowing, drowsiness and sleep activated spike/polyspike and slow wave complexes and bursts of paroxysmal generalized fast activity noted during NREM sleep. Given the electrographic features, the patten of the paroxysmal fast activity likely represented subclinical seizures. In comparison to previous EEGs, the background was improved with the distinct lack of spike/polyspike and slow wave complexes noted during wakefulness. The fast activity bursts in sleep have a relatively similar morphology and frequency as noted in prior studies. These findings are consistent with the patients known history of refractory generalized epilepsy with overall background improvement during wakefulness. Video EEG ([facility], 09/01/2017): During 20 hours and 42 minutes of continuous digital EEG/Video monitoring with scalp electrodes, the EEG was abnormal given the presence of sleep activated generalized bursts of fast repetitive spikes along with polyspike>spike and slow wave complexes. The morphology and electrographic evolution with after going slowing most likely represented subclinical seizures during sleep. In comparison to previous EEGs, consistent findings were noted during this study as the patients last study in 05/2017. No new events of concern were recorded. These findings are consistent with her known history of refractory generalized epilepsy. Video EEG ([facility], 05/06/2017): During 21 hours and 2 minutes of continuous digital EEG/Video monitoring with scalp electrodes, the EEG was abnormal due to the presence of sleep activated paroxysmal bursts of fast repetitive spikes and spike/polyspike and slow wave complexes, which due to e lectrographic evolution and aftermath slowing most likely represent subclinical seizures. In comparison to previous EEGs, this study showed significant improvement with the lack of interictal discharges in the awake background, but the sleep portion showed only mild improvement in the frequency and duration of the discharges. These findings are consistent with her known history of refractory generalized epilepsy with overall improvement on current treatment. Video EEG ([facility], 01/25/2017): During 29 hours of continuous digital EEG/Video monitoringwith scalp electrodes, the EEG was abnormal given the presence of 1. Diffuse background slowing 2. Numerous subclinical seizures during wakefulness and sleep 3. Frequent runs of epileptiform discharges composed of polyspike/spike and slow wave in addition to sleep activated bursts of paroxysmal fast activity. In comparison to previous EEGs, there was no significant changes in the ictal and interictal discharges. 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 Video EEG ([facility], 08/23/2016): During 61 hours and 44 minutes of continuous digital EEG/Video monitoring with scalp electrodes, the EEG was severely abnormal due to the presence of: 1. Reoccurring subclinical seizures during awake (Type A) and sleep (Type B), characterized by different electrographic patterns (see ictal above) 2. Polyspike and slow wave discharges 3. Diffuse background slowing The patient received IV dose of Vimpat with a subtle--brief--improvement in the EEG pattern. Depakote was discontinued. These findings could be seen in patient's with epileptic encephalopathy and areconsistent with an active, refractory generalized epilepsy. Video EEG ([facility], 08/06/2016): During 22 hours of continuous digital EEG/Video monitoring with scalp electrodes, the EEG was Abnormal. One clinical seizure was observed consisting of confusion and atypical 1-2hz spike wave discharges lasitng 21. In sleep multiple subclincal bursts of generalized spike followed by 20 hz actiity lasting 3-5 sec are observed. In addition multiple burst of difuse beta as seen below are noted not associated with clincal change. EEG (02/29/16): INTERPRETATION: This is an abnormal awake and asleep EEG. The atypical spike wave pattern is consistant with a primary generalized seizure disorder. Video EEG ([facility], 02/12/2016): During 41 hour 45 minutes of continuous digital EEG/Video monitoring with scalp electrodes, the EEG was abnormal due to the presence of recurring subclinical seizures and generalized polyspike and slow wave discharges occurring interictally. There were a fewseizures associated with subtle myoclonic jerks and delays in response. One event of room shaking was captured and was not associated with any change on the EEG background, therefore was not epileptic in the origin. In comparison to the previous EEG, similar interictal discharge was noted with improvement during the first day of the stay and subsequent increase in frequency during the rest of the stay. No Electrical Status Epilepticus of slow wave Sleep was seen, although the morphology of the discharges was composed predominantly of polyspikes, while before it was a mixture of spike and polyspike-slow wave complexes. The patient received a treatment of a high dose IV steroids over 3 day admission without a significant improvement in the EEG pattern. These findings are consistent with an active, refractory generalized epilepsy. Video EEG ([facility], 12/04-12[facility]08[facility]2015): During 65 hours and 54 minutes of continuous digital EEG/Video monitoring with scalp electrodes, the EEG was abnormal due to: Multiple myoclonic seizures Electrical status epilepticus of sleep comprised of ~80% of her slow wave sleep. Frequent and long runs of generalized spike/ polyspike and slow wave discharges with a bifrontal maximum. Posterior dominant rhythm <8 Hz. Numerous patient events were captured when the patient reported to have eye flutter, headache and staring, but it was difficult to associate clinical correlate with the EEG due to very frequent interictal discharges and timing of epileptiform burst and button push. At times, there were no epileptiform discharges noted during the episode raising concern of all those events to be non epileptic. In comparison to previous EEGs, similar discharges were noted and appeared to increase in frequency. This is consistent with epileptic seizures of a generalized mechanism and epileptic encephalopathy. Routine EEG ([facility], 03/22/14): This is an abnormal awake and asleep EEG due to very frequent generalized polyspikes, spike-wave complexes and EEG seizure pattern that developed during photic stimulation. This EEG is indicative of an active generalized epilepsy. MRI brain wo contrast ([facility], 01/23/2016): unremarkable exam MRI brain wo contrast ([facility], 03/22/2014): Limited exam due to patient motion. No gross intracranial abnormalities identified. CT head wo contrast ([facility], 11/28/2019): No acute intracranial abnormality Other caregivers: Primary Care Provider: No primary care provider on file. Current Outpatient Medications Medication Sig medroxyPROGESTERone (DEPO-PROVERA) 150 mg/mL Inject 1 mL intramuscularly every 12 weeks. clonazePAM (KLONOPIN) 0.5 mg tablet Take 1 tablet by mouth three times daily for 180 days. lacosamide (VIMPAT) 150 mg tab Take 2 tablets by mouth twice daily for 180 days. levETIRAcetam (KEPPRA) 1,000 mg tablet Take 3 tablets by mouth twice daily. ethosuximide (ZARONTIN) 250 mg capsule Take 1 capsule by mouth twice daily. FERROUS SULFATE ORAL Take 325 mg by mouth daily at bedtime. cloBAZam (ONFI) 10 mg tab tablet Take 2 tablets by mouth twice daily for 180 days. folic acid 1 mg tablet Take 2 tablets by mouth twice daily. perampanel (FYCOMPA) 4 mg tablet Take 1 tablet by mouth daily at bedtime for 180 days. zonisamide (ZONEGRAN) 100 mg capsule Take 3 capsules by mouth twice daily. 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 year old PAST SURGICAL HISTORY Procedure Laterality Date DELIVERY ONLY 09/24/2022 [facility] PAST SURGICAL HISTORY OF VNS implant, vagal nerve stimulator- approx in 2016 FAMILY HISTORY Problem Relation Age of Onset No Known Problems Father Thyroid Cancer Mother No Known Problems Brother Asthma Brother outgrown asthma Allergies Brother other (drug overdose) Brother other (MVA) Brother Allergies Brother No Known Problems Sister other (retina cancer) Maternal Grandfather Uterine Cancer Maternal Grandmother No Known Problems Paternal Grandfather COPD Paternal Grandmother Diabetes Maternal Aunt SOCIAL HISTORY: -Lives in [place], [place] -Patient lives alone? No -Vocation: -Education: -Cigarette, alcohol, substance use: -Functional status: independent in activities of daily living -Patient driving? No Review of Systems All other systems reviewed and are negative. VITAL SIGNS: BP 110/70 (BP Site: Left Arm, BP Position: Sitting, BP Cuff Size: Large Adult) Pulse 97 LMP (LMP Unknown) SpO2 97% General Examination: She is accompanied by her father. General: Awake, alert, interactive, no acute distress, good nutritional status, normal development,well-kept Neurological Exam Mental Status Alert, fully oriented, with normal speech and affect. Some difficulty in processing speed Cranial Nerves Face symmetric. Hearing intact with conversational speech. Motor Examination and Coordination Motor examination with normal bulk. Normal coordination. No adventitious movements or significant tremor. Gait Casual gait normal. IMPRESSION: Kiki Ware is a 22 year old woman with intractable generalized epilepsy with status epilepticus. She is currently on 7 AEDs and VNS. She had a prolonged hospital stay in August 2022 at [facility] where EEG showed frequent generalized seizures and abundant interictal discharges requiring escalation of AED therapy. Her seizures seemed to respond to Zarontin use which was the last medication added ( previously tried in 2017 but had abdominal pain). Her VNS is at a low setting of 0.75mA and a duty cycle of 10%. 12/12/2022: she is experiencing lethargy and gait instability. Parents attribute this to Fycompa. She has been taking Zarontin on empty stomach and is experiencing nausea. Discussed with her the importance of taking her medications with food to minimize nausea. We will decrease Fycompa to 4 mg from 6mg. Increased VNS output to 1 mA today. We will plan to increase it further depending on patient tolerability. PLAN: Decrease Fycompa to 4 mg QHS Continue other AEDs at same doses Keppra 3000 mg BID Vimpat 300 mg BID Onfi 20 mg BID Zonisamide 300 mg BID Klonapin 0.5 mg TID Ethosuzimide (Zarontin) 250 mg BID to be taken with food. CBC, CMP, Ammonia levels today Future options: if seizures are not worse, we may attempt to decrease Fycompa further with a plan to wean off. AEDs not tried yet: Lamictal, Xcopri, Epidiolex. Optimize VNS - upto 2 or 2.5 mA. We may also try higher duty cycle upto 30%. Testing Ordered CBC CMP I discussed the risks, benefits and alternatives of the medical plan with the patient. Questions were answered. The patient agreed with the plan as discussed. FOLLOW-UP: Return in about 15 weeks (around 03/27/2023). I spent a total of 45 minutes on the date of the service which included: preparing to see the patient [id number] patient care completing clinical documentation obtaining and/or reviewing separately obtained history counseling and educating the patient/family/caregiver performing a medically appropriate examination ordering medications, tests, or procedures Physician vlgv-ha-lapi time was >45 minutes with > 50% devoted to counseling or co-ordinationof care. I reviewed VNS data. In addition to above I performed electronic analysis and reprogramming of the VNS with changes first 15 minutes [id number] time Ruben Tellez MD cc: Primary Care Physician: No primary care provider on file. No primary provider on file. Referring: Patient: Ms. Kiki Ware [id number] [id number] documented in this encounterThe [facility]07-13-[facility]23 Instructions* Patient Instructions* Ruben Tellez MD - 12/12/2022 10:16 AM EDT Decrease Fycompa to 4 mg at bedtime Continue the other medications the same. I increased your VNS settings today. Please call my office if you are experiencing more seizures or side-effects. Please schedule follow up with Epilepsy pharmacist. Seizure precautions - No driving in the [facility] until seizure free for 6 months - No operating heavy machines - No swimming without supervision or bathing in a bathtub due to risk of drowning in the event of aseizure. Patient may shower. - Avoid unsafe heights, including ladders, due to risk of fall-related injury in the event of a seizure. - Seizure precipitating factors discussed including not taking seizure medications as prescribed, stress, excessive caffeine intake, energy drinks, alcohol, sleep deprivation or any identifiable seizure precipitating factor. Ruben Tellez MD Associate Staff, Epilepsy [facility] December 12, 2022 Office phone: [phone] documented in this encounterThe [facility]07-05-2023 Instructions* Patient Instructions* Yudith Cline LPN - 12/04/2022 9:49 AM EDT Patient Instructions for Depo-Provera You have chosen a very effective method of control - shots every 3 months of Depo-Provera. control shots are used by more than 6 million women around the world, and Depo-provera is the most commonly used injection or shot. Certain Women should NOT use Depo-Provera Contraception injection. You should not use Depo-Provera if you... Think you might be Have any vaginal bleeding without a known cause Have had cancer of the breast Have had a stroke Have or have had blood clots (phlebitis) in your legs Have problems with your liver or liver disease Are allergic to Depo-Provera Contraception Injection (medroxyprogesterone acetate or any of it's ingredients) If you wish to get , stop control shots several months before you plan to get . The following information may help you use Depo-Provera: 1. Use another form of control for 2 weeks after your first injection. 2. Depo-Provera tends to make a woman's periods less regular and bleeding and spotting between periods is common for the first 9 -12 months. Some women stop having periods completely, usually after 9months on Depo-Provera. If your pattern of bleeding concerns you, return to the clinic to get a blood test for anemia, or to check the possibility of , or to check for an infection. 3. Return to the clinic every 3 months for another shot.(Between weeks 11-13 from your last injection) 4. Weight gain is common the first 3 years on Depo-Provera. More than 5 pounds the first year, should be reported. 5. Depo-Provera is intended to prevent . It does not protect against transmission of HIV (AIDS) and other sexually transmitted diseases such as chlamydia, genital herpes, genital warts, gonorrhea, hepatitis B, and syphilis. You should continue to use condoms. 6. Report to the clinic if you develop any problems. DANGER SIGNALS - Weight gain of more than 5 pounds - Headaches - Heavy Bleeding - Depression - Frequent urination These instructions have been explained to the patient and she received a copy. 12/04/2022 Patient Instructions for Depo-Provera You have chosen a very effective method of control - shots every 3 months of Depo-Provera. control shots are used by more than 6 million women around the world, and Depo-provera is the most commonly used injection or shot. Certain Women should NOT use Depo-Provera Contraception injection. You should not use Depo-Provera if you... Think you might be Have any vaginal bleeding without a known cause Have had cancer of the breast Have had a stroke Have or have had blood clots (phlebitis) in your legs Have problems with your liver or liver disease Are allergic to Depo-Provera Contraception Injection (medroxyprogesterone acetate or any of it's ingredients) If you wish to get , stop control shots several months before you plan to get . The following information may help you use Depo-Provera: 1. Use another form of control for 2 weeks after your first injection. 2. Depo-Provera tends to make a woman's periods less regular and bleeding and spotting between periods is common for the first 9 -12 months. Some women stop having periods completely, usually after 9months on Depo-Provera. If your pattern of bleeding concerns you, return to the clinic to get a blood test for anemia, or to check the possibility of , or to check for an infection. 3. Return to the clinic every 3 months for another shot.(Between weeks 11-13 from your last injection) 4. Weight gain is common the first 3 years on Depo-Provera. More than 5 pounds the first year, should be reported. 5. Depo-Provera is intended to prevent . It does not protect against transmission of HIV (AIDS) and other sexually transmitted diseases such as chlamydia, genital herpes, genital warts, gonorrhea, hepatitis B, and syphilis. You should continue to use condoms. 6. Report to the clinic if you develop any problems. DANGER SIGNALS - Weight gain of more than 5 pounds - Headaches - Heavy Bleeding - Depression - Frequent urination These instructions have been explained to the patient and she received a copy. 12/04/2022 documented in this encounterThe [facility]07-05-2023 History of Present illness Narrative* Yudith Cline LPN - 12/04/2022 9:46 AM EDT Pt seen in office today for Depo Provera Injection. Patient brought own med. Wt 193 lb 12.8 oz (87.9kg) Vital signs reviewed. Pt advised when to return for next injection and/or yearly pap. Tolerated injection well? YesPatient identified by name and date of . [place] Loren Ware is here for a Depo Provera injection. Patient brought medication. Date last injected: right deltoid Depo-Provera, 150 mg, administered IM left upper quadrant gluteus, Lot # [id number], expiration date 07/30/24. Depo-Provera was given without incident. Date of last menses: No LMP recorded (lmp unknown). Irregular bleeding - No Menses ceased - Yes STD prevention discussed: Yes Patient instructed to return to clinic on 12 weeks +/- 5 days. [email or web address] Provider Maria Eugenia Soria CNM was present in office at time of injection. Yudith Cline LPN . See medication note for lot#, exp date. documented in this encounterThe [facility]07-03-2023 History of Present illness Narrative* Evie Crane MD - 12/02/2022 4:04 PM EDT CONTRACEPTION Kiki Ware is a 22 year old who presents today for contraception. No LMP recorded (lmp unknown).. HPI: Dysmenorrhea No Heavy menses No Irregular menses Yes - spotting after Depo after delivery SUBJECTIVE Sexually active: Yes Smoking No Last PAP Method of control: Depo Provera satisfactory Methods tried previously: Nexplanon - did not like the feeling of the implant so had it removed Patient currently interested in: Depo Provera Interested in in the next 3 years? 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 year old PAST SURGICAL HISTORY Procedure Laterality Date DELIVERY ONLY 09/24/2022 [facility] PAST SURGICAL HISTORY OF VNS implant, vagal nerve stimulator- approx in 2015 FAMILY HISTORY Problem Relation Age of Onset No Known Problems Father Thyroid Cancer Mother No Known Problems Brother Asthma Brother outgrown asthma Allergies Brother other (drug overdose) Brother other (MVA) Brother Allergies Brother No Known Problems Sister other (retina cancer) Maternal Grandfather Uterine Cancer Maternal Grandmother No Known Problems Paternal Grandfather COPD Paternal Grandmother Diabetes Maternal Aunt SOCIAL HISTORY Social History Tobacco Use Smoking status: Never Smokeless tobacco: Never Tobacco comments: smoking outside per mom Vaping Use Vaping Use: Never used Substance Use Topics Alcohol use: Not Currently Drug use: Not Currently Types: Marijuana PAST SURGICAL HISTORY Procedure Laterality Date DELIVERY ONLY 09/24/2022 [facility] PAST SURGICAL HISTORY OF VNS implant, vagal nerve stimulator- approx in 2016 Current Outpatient Medications Medication Sig clonazePAM (KLONOPIN) 0.5 mg tablet Take 1 tablet by mouth three times daily for 180 days. lacosamide (VIMPAT) 150 mg tab Take 2 tablets by mouth twice daily for 180 days. levETIRAcetam (KEPPRA) 1,000 mg tablet Take 3 tablets by mouth twice daily. ethosuximide (ZARONTIN) 250 mg capsule Take 1 capsule by mouth twice daily. perampanel (FYCOMPA) 6 mg tab(s) Take 1 tablet by mouth daily at bedtime for 180 days. zonisamide (ZONEGRAN) 100 mg capsule Take 3 capsules by mouth twice daily. FERROUS SULFATE ORAL Take 325 mg by mouth daily at bedtime. cloBAZam (ONFI) 10 mg tab tablet Take 2 tablets by mouth twice daily for 180 days. folic acid 1 mg tablet Take 2 tablets by mouth twice daily. vit [id number]-cywu-zvinr-dha (PRENATE MINI, FERR ASP GLYCIN,) 18-1-350 mg cap Take 1 Dose by mouth once daily. No current facility-administered medications for this visit. Allergies As of Date: 12/02/2022 Allergen Noted Reaction DEPAKOTE [DIVALPROEX] 07/23/2021 Other: See Comments Fully Assessed 12/02/2022 OBJECTIVE: General Appearance: Well appearing, alert, in no acute distress Skin: Color normal, Vascularity normal, No lesions noted Chest: No increased resp effort ASSESSMENT/PLAN: control counseling All contraceptive options were discussed with the patient. R/B/A explained. All questions answered.Pt understands risks including but not limited to increased risk of breast cancer, blood clots and stroke. Patient desires Depo after discussion of r/b/a. She reports she received her initial injection prior to leaving hospital after delivery. Evie Crane, DO I spent 20 minutes in the visit, with more than 50% of the total [id number]-[id number] time of the visit in counseling / coordination of care. documented in this encounterThe [facility]05-12-2023 Miscellaneous Notes* Telephone Encounter - Karla Mcguire RPh - 10/11/2022 2:08 PM EDT Patient had missed pharmacy visit on 10/08. Rescheduled to 10/16. Patient reports improved seizure control with side effects (significant fatigue). Multiple medication changes with most recent EMU admission. Will discuss further at visit on 10/16. Karla Mcguire RPh documented in this encounterThe [facility]04-30-2023 Miscellaneous Notes* Telephone Encounter - Akila Gordillo MD - 09/29/2022 6:06 PM EDT Mom (Paty Ware) called for concern of breakthrough seizures. Patient give on 09/22. This morning she was visiting her baby in the NICU when she had a GTC lasting 1 min. Prior to this, he last seizures was ~2 months ago. She was taken to the ED at that time. On arrival to the ED, she was backto baseline. ASM levels where collected. She was otherwise sable so was discharged home. Since discharge from ED, she has had multiple eye fluttering episodes consistent with her normal seizures. Momhas given her 2 of her PRN klonopin 0.5 mg, but she continues to have seizures. Given ongoing breakthrough seizures not resolved by rescue medication, directed her to return to ED for further evaluation and monitoring. Akial Gordillo MD PGY3 Pediatric Neurology Resident 09/29/2022 6:19 PM documented in this encounterThe [facility]04-23-2023 History of Past illness Narrative* Problem Noted Date Resolved Date Encounter for induction of labor 09/22/2022 09/28/2022 Overview: - IOL seizures - GBS negative - pitocin per protocol (offx1, 1/2x1) - epidural in place - amniotomy @0800 clear - s/p cytotec x5 - s/p walters balloon - IUPC - FSE - amnioinfusion Anemia, antepartum, third trimester 07/30/2022 09/03/2022 Overview: Repeat Hb @32 w fine Vaginal bleeding in , second trimester 04/23/2022 08/27/2022 Last Assessment & Plan: Patient assessed in ER over weekend for an episode of VB that resolved. US today reassuring. Bleeding precautions were reviewed. related nausea, antepartum 02/28/2022 09/03/2022 Overview: 02/28/2022atient is complaining of nausea . Denies any vomiting dietary considerations discussed . Reiterated to mom and patient the importance of calling us if she is unable to keep food or fluids down. TKRN Patient request for diagnostic testing 08/27/2022 Overview: 02/28/2022 Patient desires aneuploidy screening. She is given contact information for [facility] to call for insurance coverage information. Declines genetic carrier screening testing as mother says she has had that in the past.Nathaniel Mckinney RN Supervision of high risk , antepartum 0 02/12/2022 09/03/2022 Last Assessment & Plan: NIPS risk reducing for aneuploidy. Anatomic survey at 18-20 weeks. Reviewed recommendations for influenza an COVID vaccination. Continue routine OB care with primary OB and co-management with MFM. Midtrimester counseling provided. Nicotine use disorder, F17.2 07/24/2021 Generalized epilepsy 07/23/2021 09/03/2022 ADD (attention deficit disorder) 12/14/2009 09/03/2022 documented as of this encounter (statuses as of 09/29/2022) [facility]04-23-2023 History of Past illness Narrative* Problem Noted Date Resolved Date Encounter for induction of labor 09/22/2022 09/28/2022 Overview: - IOL seizures - GBS negative - pitocin per protocol (offx1, 12x1) - epidural in place - amniotomy @0800 clear - s/p cytotec x5 - s/p walters balloon - IUPC - FSE - amnioinfusion Anemia, antepartum, third trimester 07/30/2022 09/03/2022 Overview: Repeat Hb @32 w fine Vaginal bleeding in , second trimester 04/23/2022 08/27/2022 Last Assessment & Plan: Patient assessed in ER over weekend for an episode of VB that resolved. US today reassuring. Bleeding precautions were reviewed. related nausea, antepartum 02/28/2022 09/03/2022 Overview: 02/28/2022atient is complaining of nausea . Denies any vomiting dietary considerations discussed . Reiterated to mom and patient the importance of calling us if she is unable to keep food or fluids down. TKRN Patient request for diagnostic testing 08/27/2022 Overview: 02/28/2022 Patient desires aneuploidy screening. She is given contact information for [facility] to call for insurance coverage information. Declines genetic carrier screening testing as mother says she has had that in the past.Nathaniel Mckinney RN Supervision of high risk , antepartum 0 02/12/2022 09/03/2022 Last Assessment & Plan: NIPS risk reducing for aneuploidy. Anatomic survey at 18-20 weeks. Reviewed recommendations for influenza an COVID vaccination. Continue routine OB care with primary OB and co-management with MFM. Midtrimester counseling provided. Nicotine use disorder, F17.2 07/24/2021 Generalized epilepsy 07/23/2021 09/03/2022 ADD (attention deficit disorder) 12/14/2009 09/03/2022 documented as of this encounter (statuses as of 10/11/2022) [facility] History of Past illness Narrative* Problem Noted Date Resolved Date Encounter for induction of labor 09/22/2022 09/28/2022 Overview: - IOL seizures - GBS negative - pitocin per protocol (offx1, 12x1) - epidural in place - amniotomy @0800 clear - s/p cytotec x5 - s/p walters balloon - IUPC - FSE - amnioinfusion Anemia, antepartum, third trimester 07/30/2022 09/03/2022 Overview: Repeat Hb @32 w fine Vaginal bleeding in , second trimester 04/23/2022 08/27/2022 Last Assessment & Plan: Patient assessed in ER over weekend for an episode of VB that resolved. US today reassuring. Bleeding precautions were reviewed. related nausea, antepartum 02/28/2022 09/03/2022 Overview: 02/28/2022atient is complaining of nausea . Denies any vomiting dietary considerations discussed . Reiterated to mom and patient the importance of calling us if she is unable to keep food or fluids down. TKRN Patient request for diagnostic testing 2 08/27/2022 Overview: 02/28/2022 Patient desires aneuploidy screening. She is given contact information for [facility] to call for insurance coverage information. Declines genetic carrier screening testing as mother says she has had that in the past.Nathaniel Mckinney RN Supervision of high risk , antepartum 0 02/12/2022 09/03/2022 Last Assessment & Plan: NIPS risk reducing for aneuploidy. Anatomic survey at 18-20 weeks. Reviewed recommendations for influenza an COVID vaccination. Continue routine OB care with primary OB and co-management with MFM. Midtrimester counseling provided. Nicotine use disorder, F17.2 07/24/2021 Generalized epilepsy 07/23/2021 09/03/2022 ADD (attention deficit disorder) 12/14/2009 09/03/2022 documented as of this encounter (statuses as of 10/14/2022) [facility]04-23-2023 History of Past illness Narrative* Problem Noted Date Resolved Date Encounter for induction of labor 09/22/2022 09/28/2022 Overview: - IOL seizures - GBS negative - pitocin per protocol (offx1, 12x1) - epidural in place - amniotomy @0800 clear - s/p cytotec x5 - s/p walters balloon - IUPC - FSE - amnioinfusion Anemia, antepartum, third trimester 07/30/2022 09/03/2022 Overview: Repeat Hb @32 w fine Vaginal bleeding in , second trimester 04/23/2022 08/27/2022 Last Assessment & Plan: Patient assessed in ER over weekend for an episode of VB that resolved. US today reassuring. Bleeding precautions were reviewed. related nausea, antepartum 02/28/2022 09/03/2022 Overview: 02/28/2022atient is complaining of nausea . Denies any vomiting dietary considerations discussed . Reiterated to mom and patient the importance of calling us if she is unable to keep food or fluids down. TKRN Patient request for diagnostic testing 2 08/27/2022 Overview: 02/28/2022 Patient desires aneuploidy screening. She is given contact information for [facility] to call for insurance coverage information. Declines genetic carrier screening testing as mother says she has had that in the past.Nathaniel Mckinney RN Supervision of high risk , antepartum 0 02/12/2022 09/03/2022 Last Assessment & Plan: NIPS risk reducing for aneuploidy. Anatomic survey at 18-20 weeks. Reviewed recommendations for influenza an COVID vaccination. Continue routine OB care with primary OB and co-management with MFM. Midtrimester counseling provided. Nicotine use disorder, F17.2 07/24/2021 Generalized epilepsy 07/23/2021 09/03/2022 ADD (attention deficit disorder) 12/14/2009 09/03/2022 documented as of this encounter (statuses as of 12/03/2022) [facility]04-23-2023 History of Past illness Narrative* Problem Noted Date Resolved Date Encounter for induction of labor 09/22/2022 09/28/2022 Overview: - IOL seizures - GBS negative - pitocin per protocol (offx1, 1/2x1) - epidural in place - amniotomy @0800 clear - s/p cytotec x5 - s/p walters balloon - IUPC - FSE - amnioinfusion Anemia, antepartum, third trimester 07/30/2022 09/03/2022 Overview: Repeat Hb @32 w fine Vaginal bleeding in , second trimester 04/23/2022 08/27/2022 Last Assessment & Plan: Patient assessed in ER over weekend for an episode of VB that resolved. US today reassuring. Bleeding precautions were reviewed. related nausea, antepartum 02/28/2022 09/03/2022 Overview: 02/28/2022atient is complaining of nausea . Denies any vomiting dietary considerations discussed . Reiterated to mom and patient the importance of calling us if she is unable to keep food or fluids down. TKRN Patient request for diagnostic testing 08/27/2022 Overview: 02/28/2022 Patient desires aneuploidy screening. She is given contact information for [facility] to call for insurance coverage information. Declines genetic carrier screening testing as mother says she has had that in the past.Nathaniel Mckinney RN Supervision of high risk , antepartum 0 02/12/2022 09/03/2022 Last Assessment & Plan: NIPS risk reducing for aneuploidy. Anatomic survey at 18-20 weeks. Reviewed recommendations for influenza an COVID vaccination. Continue routine OB care with primary OB and co-management with MFM. Midtrimester counseling provided. Nicotine use disorder, F17.2 07/24/2021 Generalized epilepsy 07/23/2021 09/03/2022 ADD (attention deficit disorder) 12/14/2009 09/03/2022 documented as of this encounter (statuses as of 12/04/2022) [facility]04-23-2023 History of Past illness Narrative* Problem Noted Date Diagnosed Date Resolved Date Encounter for induction of labor 09/22/2022 09/28/2022 Overview: - IOL seizures - GBS negative - pitocin per protocol (offx1, 1/2x1) - epidural in place - amniotomy @0800 clear - s/p cytotec x5 - s/p walters balloon - IUPC - FSE - amnioinfusion Anemia, antepartum, third trimester 07/30/2022 09/03/2022 Overview: Repeat Hb @32 w fine Vaginal bleeding in pregnanc y, second trimester 04/23/2022 08/27/2022 Last Assessment & Plan: Patient assessed in ER over weekend for an episode of VB that resolved. US today reassuring. Bleeding precautions were reviewed. related nausea, antepartum 02/28/2022 09/03/2022 Overview: 02/28/2022atient is complaining of nausea . Denies any vomiting dietary considerations discussed . Reiterated to mom and patient the importance of calling us if she is unable to keep food or fluids down. TKRN Patient request for diagnostic testing 02/28/2022 08/27/2022 Overview: 02/28/2022 Patient desires aneuploidy screening. She is given contact information for [facility] to call for insurance coverage information. Declines genetic carrier screening testing as mother says she has had that in the past.Nathaniel Mckinney RN Supervision of high risk pre gnancy, antepartum 02/12/2022 09/03/2022 Last Assessment & Plan: NIPS risk reducing for aneuploidy. Anatomic survey at 18-20 weeks. Reviewed recommendations for influenza an COVID vaccination. Continue routine OB care with primary OB and co-management with MFM. Midtrimester counseling provided. Nicotine use disorder, F17.2 07/24/2021 08/27/2022 Generalized epilepsy 07/23/2021 023 ADD (attention deficit disorder) 12/14/2009 09/03/2022 documented as of this encounter (statuses as of 12/12/2022) [facility]04-23-2023 History of Past illness Narrative* Problem Noted Date Diagnosed Date Resolved Date Encounter for induction of labor 09/22/2022 09/28/2022 Overview: - IOL seizures - GBS negative - pitocin per protocol (offx1, 12x1) - epidural in place - amniotomy @0800 clear - s/p cytotec x5 - s/p walters balloon - IUPC - FSE - amnioinfusion Anemia, antepartum, third trimester 07/30/2022 09/03/2022 Overview: Repeat Hb @32 w fine Vaginal bleeding in pregnanc y, second trimester 04/23/2022 08/27/2022 Last Assessment & Plan: Patient assessed in ER over weekend for an episode of VB that resolved. US today reassuring. Bleeding precautions were reviewed. related nausea, antepartum 02/28/2022 09/03/2022 Overview: 02/28/2022atient is complaining of nausea . Denies any vomiting dietary considerations discussed . Reiterated to mom and patient the importance of calling us if she is unable to keep food or fluids down. TKRN Patient request for diagnostic testing 02/28/2022 08/27/2022 Overview: 02/28/2022 Patient desires aneuploidy screening. She is given contact information for [facility] to call for insurance coverage information. Declines genetic carrier screening testing as mother says she has had that in the past.Nathaniel Mckinney RN Supervision of high risk pre gnancy, antepartum 02/12/2022 09/03/2022 Last Assessment & Plan: NIPS risk reducing for aneuploidy. Anatomic survey at 18-20 weeks. Reviewed recommendations for influenza an COVID vaccination. Continue routine OB care with primary OB and co-management with MFM. Midtrimester counseling provided. Nicotine use disorder, F17.2 07/24/2021 08/27/2022 Generalized epilepsy 07/23/2021 023 ADD (attention deficit disorder) 12/14/2009 09/03/2022 documented as of this encounter (statuses as of 01/10/2023) [facility]04-23-2023 History of Past illness Narrative* Problem Noted Date Diagnosed Date Resolved Date Encounter for induction of labor 09/22/2022 09/28/2022 Overview: - IOL seizures - GBS negative - pitocin per protocol (offx1, 1) - epidural in place - amniotomy @0800 clear - s/p cytotec x5 - s/p walters balloon - IUPC - FSE - amnioinfusion Anemia, antepartum, third trimester 07/30/2022 09/03/2022 Overview: Repeat Hb @32 w fine Vaginal bleeding in pregnanc y, second trimester 04/23/2022 08/27/2022 Last Assessment & Plan: Patient assessed in ER over weekend for an episode of VB that resolved. US today reassuring. Bleeding precautions were reviewed. related nausea, antepartum 02/28/2022 09/03/2022 Overview: 02/28/2022atient is complaining of nausea . Denies any vomiting dietary considerations discussed . Reiterated to mom and patient the importance of calling us if she is unable to keep food or fluids down. TKRN Patient request for diagnostic testing 02/28/2022 08/27/2022 Overview: 02/28/2022 Patient desires aneuploidy screening. She is given contact information for [facility] to call for insurance coverage information. Declines genetic carrier screening testing as mother says she has had that in the past.Nathaniel Mckinney RN Supervision of high risk pre gnancy, antepartum 02/12/2022 09/03/2022 Last Assessment & Plan: NIPS risk reducing for aneuploidy. Anatomic survey at 18-20 weeks. Reviewed recommendations for influenza an COVID vaccination. Continue routine OB care with primary OB and co-management with MFM. Midtrimester counseling provided. Nicotine use disorder, F17.2 07/24/2021 08/27/2022 Generalized epilepsy 07/23/2021 023 ADD (attention deficit disorder) 12/14/2009 09/03/2022 documented as of this encounter (statuses as of 01/15/2023) [facility]04-[facility]-2023 History of Past illness Narrative* Problem Noted Date Diagnosed Date Resolved Date Encounter for induction of labor 09/22/2022 09/28/2022 Overview: - IOL seizures - GBS negative - pitocin per protocol (offx1, 1/2x1) - epidural in place - amniotomy @0800 clear - s/p cytotec x5 - s/p walters balloon - IUPC - FSE - amnioinfusion Anemia, antepartum, third trimester 07/30/2022 09/03/2022 Overview: Repeat Hb @32 w fine Vaginal bleeding in pregnanc y, second trimester 04/23/2022 08/27/2022 Last Assessment & Plan: Patient assessed in ER over weekend for an episode of VB that resolved. US today reassuring. Bleeding precautions were reviewed. related nausea, antepartum 02/28/2022 09/03/2022 Overview: 02/28/2022atient is complaining of nausea . Denies any vomiting dietary considerations discussed . Reiterated to mom and patient the importance of calling us if she is unable to keep food or fluids down. TKRN Patient request for diagnostic testing 02/28/2022 08/27/2022 Overview: 02/28/2022 Patient desires aneuploidy screening. She is given contact information for [facility] to call for insurance coverage information. Declines genetic carrier screening testing as mother says she has had that in the past.Nathaniel Mckinney RN Supervision of high risk pre gnancy, antepartum 02/12/2022 09/03/2022 Last Assessment & Plan: NIPS risk reducing for aneuploidy. Anatomic survey at 18-20 weeks. Reviewed recommendations for influenza an COVID vaccination. Continue routine OB care with primary OB and co-management with MFM. Midtrimester counseling provided. Nicotine use disorder, F17.2 07/24/2021 08/27/2022 Generalized epilepsy 07/23/2021 023 ADD (attention deficit disorder) 12/14/2009 09/03/2022 documented as of this encounter (statuses as of 01/15/2023) [facility]04-23-2023 History of Past illness Narrative* Problem Noted Date Diagnosed Date Resolved Date Encounter for induction of labor 09/22/2022 09/28/2022 Overview: - IOL seizures - GBS negative - pitocin per protocol (offx1, 2x1) - epidural in place - amniotomy @0800 clear - s/p cytotec x5 - s/p walters balloon - IUPC - FSE - amnioinfusion Anemia, antepartum, third trimester 07/30/2022 09/03/2022 Overview: Repeat Hb @32 w fine Vaginal bleeding in pregnanc y, second trimester 04/23/2022 08/27/2022 Last Assessment & Plan: Patient assessed in ER over weekend for an episode of VB that resolved. US today reassuring. Bleeding precautions were reviewed. related nausea, antepartum 02/28/2022 09/03/2022 Overview: 02/28/2022atient is complaining of nausea . Denies any vomiting dietary considerations discussed . Reiterated to mom and patient the importance of calling us if she is unable to keep food or fluids down. TKRN Patient request for diagnostic testing 02/28/2022 08/27/2022 Overview: 02/28/2022 Patient desires aneuploidy screening. She is given contact information for [facility] to call for insurance coverage information. Declines genetic carrier screening testing as mother says she has had that in the past.Nathaniel Mckinney RN Supervision of high risk pre gnancy, antepartum 02/12/2022 09/03/2022 Last Assessment & Plan: NIPS risk reducing for aneuploidy. Anatomic survey at 18-20 weeks. Reviewed recommendations for influenza an COVID vaccination. Continue routine OB care with primary OB and co-management with MFM. Midtrimester counseling provided. Nicotine use disorder, F17.2 07/24/2021 08/27/2022 Generalized epilepsy 07/23/2021 023 ADD (attention deficit disorder) 12/14/2009 09/03/2022 documented as of this encounter (statuses as of 01/22/2023) [facility]04-[facility]-2023 History of Past illness Narrative* Problem Noted Date Diagnosed Date Resolved Date Encounter for induction of labor 09/22/2022 09/28/2022 Overview: - IOL seizures - GBS negative - pitocin per protocol (offx1, 1/2x1) - epidural in place - amniotomy @0800 clear - s/p cytotec x5 - s/p walters balloon - IUPC - FSE - amnioinfusion Anemia, antepartum, third trimester 07/30/2022 09/03/2022 Overview: Repeat Hb @32 w fine Vaginal bleeding in pregnanc y, second trimester 04/23/2022 08/27/2022 Last Assessment & Plan: Patient assessed in ER over weekend for an episode of VB that resolved. US today reassuring. Bleeding precautions were reviewed. related nausea, antepartum 02/28/2022 09/03/2022 Overview: 02/28/2022atient is complaining of nausea . Denies any vomiting dietary considerations discussed . Reiterated to mom and patient the importance of calling us if she is unable to keep food or fluids down. TKRN Patient request for diagnostic testing 02/28/2022 08/27/2022 Overview: 02/28/2022 Patient desires aneuploidy screening. She is given contact information for [facility] to call for insurance coverage information. Declines genetic carrier screening testing as mother says she has had that in the past.Nathaniel Mckinney RN Supervision of high risk pre gnancy, antepartum 02/12/2022 09/03/2022 Last Assessment & Plan: NIPS risk reducing for aneuploidy. Anatomic survey at 18-20 weeks. Reviewed recommendations for influenza an COVID vaccination. Continue routine OB care with primary OB and co-management with MFM. Midtrimester counseling provided. Nicotine use disorder, F17.2 07/24/2021 08/27/2022 Generalized epilepsy 07/23/2021 023 ADD (attention deficit disorder) 12/14/2009 09/03/2022 documented as of this encounter (statuses as of 01/28/2023) [facility]04-[facility]-2023 History of Past illness Narrative* Problem Noted Date Diagnosed Date Resolved Date Encounter for induction of labor 09/22/2022 09/28/2022 Overview: - IOL seizures - GBS negative - pitocin per protocol (offx1, 12x1) - epidural in place - amniotomy @0800 clear - s/p cytotec x5 - s/p walters balloon - IUPC - FSE - amnioinfusion Anemia, antepartum, third trimester 07/30/2022 09/03/2022 Overview: Repeat Hb @32 w fine Vaginal bleeding in pregnanc y, second trimester 04/23/2022 08/27/2022 Last Assessment & Plan: Patient assessed in ER over weekend for an episode of VB that resolved. US today reassuring. Bleeding precautions were reviewed. related nausea, antepartum 02/28/2022 09/03/2022 Overview: 02/28/2022atient is complaining of nausea . Denies any vomiting dietary considerations discussed . Reiterated to mom and patient the importance of calling us if she is unable to keep food or fluids down. TKRN Patient request for diagnostic testing 02/28/2022 08/27/2022 Overview: 02/28/2022 Patient desires aneuploidy screening. She is given contact information for [facility] to call for insurance coverage information. Declines genetic carrier screening testing as mother says she has had that in the past.Nathaniel Mckinney RN Supervision of high risk pre gnancy, antepartum 02/12/2022 09/03/2022 Last Assessment & Plan: NIPS risk reducing for aneuploidy. Anatomic survey at 18-20 weeks. Reviewed recommendations for influenza an COVID vaccination. Continue routine OB care with primary OB and co-management with MFM. Midtrimester counseling provided. Nicotine use disorder, F17.2 07/24/2021 08/27/2022 Generalized epilepsy 07/23/2021 023 ADD (attention deficit disorder) 12/14/2009 09/03/2022 documented as of this encounter (statuses as of 02/05/2023) [facility]04-[facility]-2023 History of Past illness Narrative* Problem Noted Date Diagnosed Date Resolved Date Encounter for induction of labor 09/22/2022 09/28/2022 Overview: - IOL seizures - GBS negative - pitocin per protocol (offx1, 1) - epidural in place - amniotomy @0800 clear - s/p cytotec x5 - s/p walters balloon - IUPC - FSE - amnioinfusion Anemia, antepartum, third trimester 07/30/2022 09/03/2022 Overview: Repeat Hb @32 w fine Vaginal bleeding in pregnanc y, second trimester 04/23/2022 08/27/2022 Last Assessment & Plan: Patient assessed in ER over weekend for an episode of VB that resolved. US today reassuring. Bleeding precautions were reviewed. related nausea, antepartum 02/28/2022 09/03/2022 Overview: 02/28/2022atient is complaining of nausea . Denies any vomiting dietary considerations discussed . Reiterated to mom and patient the importance of calling us if she is unable to keep food or fluids down. TKRN Patient request for diagnostic testing 02/28/2022 08/27/2022 Overview: 02/28/2022 Patient desires aneuploidy screening. She is given contact information for [facility] to call for insurance coverage information. Declines genetic carrier screening testing as mother says she has had that in the past.Nathaniel Mckinney RN Supervision of high risk pre gnancy, antepartum 02/12/2022 09/03/2022 Last Assessment & Plan: NIPS risk reducing for aneuploidy. Anatomic survey at 18-20 weeks. Reviewed recommendations for influenza an COVID vaccination. Continue routine OB care with primary OB and co-management with MFM. Midtrimester counseling provided. Nicotine use disorder, F17.2 07/24/2021 08/27/2022 Generalized epilepsy 07/23/2021 023 ADD (attention deficit disorder) 12/14/2009 09/03/2022 documented as of this encounter (statuses as of 02/06/2023) [facility] History of Past illness Narrative* Problem Noted Date Diagnosed Date Resolved Date Encounter for induction of labor 09/22/2022 09/28/2022 Overview: - IOL seizures - GBS negative - pitocin per protocol (offx1, 1/2x1) - epidural in place - amniotomy @0800 clear - s/p cytotec x5 - s/p walters balloon - IUPC - FSE - amnioinfusion Anemia, antepartum, third trimester 07/30/2022 09/03/2022 Overview: Repeat Hb @32 w fine Vaginal bleeding in pregnanc y, second trimester 04/23/2022 08/27/2022 Last Assessment & Plan: Patient assessed in ER over weekend for an episode of VB that resolved. US today reassuring. Bleeding precautions were reviewed. related nausea, antepartum 02/28/2022 09/03/2022 Overview: 02/28/2022atient is complaining of nausea . Denies any vomiting dietary considerations discussed . Reiterated to mom and patient the importance of calling us if she is unable to keep food or fluids down. TKRN Patient request for diagnostic testing 02/28/2022 08/27/2022 Overview: 02/28/2022 Patient desires aneuploidy screening. She is given contact information for [facility] to call for insurance coverage information. Declines genetic carrier screening testing as mother says she has had that in the past.Nathaniel Mckinney RN Supervision of high risk pre gnancy, antepartum 02/12/2022 09/03/2022 Last Assessment & Plan: NIPS risk reducing for aneuploidy. Anatomic survey at 18-20 weeks. Reviewed recommendations for influenza an COVID vaccination. Continue routine OB care with primary OB and co-management with MFM. Midtrimester counseling provided. Nicotine use disorder, F17.2 07/24/2021 08/27/2022 Generalized epilepsy 07/23/2021 023 ADD (attention deficit disorder) 12/14/2009 09/03/2022 documented as of this encounter (statuses as of 02/11/2023) [facility]20[facility] History of Past illness Narrative* Problem Noted Date Diagnosed Date Resolved Date Encounter for induction of labor 09/22/2022 09/28/2022 Overview: - IOL seizures - GBS negative - pitocin per protocol (offx1, 1/2x1) - epidural in place - amniotomy @0800 clear - s/p cytotec x5 - s/p walters balloon - IUPC - FSE - amnioinfusion Anemia, antepartum, third trimester 07/30/2022 09/03/2022 Overview: Repeat Hb @32 w fine Vaginal bleeding in pregnanc y, second trimester 04/23/2022 08/27/2022 Last Assessment & Plan: Patient assessed in ER over weekend for an episode of VB that resolved. US today reassuring. Bleeding precautions were reviewed. related nausea, antepartum 02/28/2022 09/03/2022 Overview: 02/28/2022atient is complaining of nausea . Denies any vomiting dietary considerations discussed . Reiterated to mom and patient the importance of calling us if she is unable to keep food or fluids down. TKRN Patient request for diagnostic testing 02/28/2022 08/27/2022 Overview: 02/28/2022 Patient desires aneuploidy screening. She is given contact information for [facility] to call for insurance coverage information. Declines genetic carrier screening testing as mother says she has had that in the past.Nathaniel Mckinney RN Supervision of high risk pre gnancy, antepartum 02/12/2022 09/03/2022 Last Assessment & Plan: NIPS risk reducing for aneuploidy. Anatomic survey at 18-20 weeks. Reviewed recommendations for influenza an COVID vaccination. Continue routine OB care with primary OB and co-management with MFM. Midtrimester counseling provided. Nicotine use disorder, F17.2 07/24/2021 08/27/2022 Generalized epilepsy 07/23/2021 023 ADD (attention deficit disorder) 12/14/2009 09/03/2022 documented as of this encounter (statuses as of 02/28/2023) [facility] History of Past illness Narrative* Problem Noted Date Diagnosed Date Resolved Date Encounter for induction of labor 09/22/2022 09/28/2022 Overview: - IOL seizures - GBS negative - pitocin per protocol (offx1, 1/2x1) - epidural in place - amniotomy @0800 clear - s/p cytotec x5 - s/p walters balloon - IUPC - FSE - amnioinfusion Anemia, antepartum, third trimester 07/30/2022 09/03/2022 Overview: Repeat Hb @32 w fine Vaginal bleeding in pregnanc y, second trimester 04/23/2022 08/27/2022 Last Assessment & Plan: Patient assessed in ER over weekend for an episode of VB that resolved. US today reassuring. Bleeding precautions were reviewed. related nausea, antepartum 02/28/2022 09/03/2022 Overview: 02/28/2022atient is complaining of nausea . Denies any vomiting dietary considerations discussed . Reiterated to mom and patient the importance of calling us if she is unable to keep food or fluids down. TKRN Patient request for diagnostic testing 02/28/2022 08/27/2022 Overview: 02/28/2022 Patient desires aneuploidy screening. She is given contact information for [employer] to call for insurance coverage information. Declines genetic carrier screening testing as mother says she has had that in the past.Nathaniel Mckinney RN Supervision of high risk pre gnancy, antepartum 02/12/2022 09/03/2022 Last Assessment & Plan: NIPS risk reducing for aneuploidy. Anatomic survey at 18-20 weeks. Reviewed recommendations for influenza an COVID vaccination. Continue routine OB care with primary OB and co-management with MFM. Midtrimester counseling provided. Nicotine use disorder, F17.2 07/24/2021 08/27/2022 Generalized epilepsy 07/23/2021 023 ADD (attention deficit disorder) 12/14/2009 09/03/2022 documented as of this encounter (statuses as of 04/01/2023) [facility]04-23-2023 History of Past illness Narrative* Problem Noted Date Diagnosed Date Resolved Date Encounter for induction of labor 09/22/2022 09/28/2022 Overview: - IOL seizures - GBS negative - pitocin per protocol (offx1, 12x1) - epidural in place - amniotomy @0800 clear - s/p cytotec x5 - s/p walters balloon - IUPC - FSE - amnioinfusion Anemia, antepartum, third trimester 07/30/2022 09/03/2022 Overview: Repeat Hb @32 w fine Vaginal bleeding in pregnanc y, second trimester 04/23/2022 08/27/2022 Last Assessment & Plan: Patient assessed in ER over weekend for an episode of VB that resolved. US today reassuring. Bleeding precautions were reviewed. related nausea, antepartum 02/28/2022 09/03/2022 Overview: 02/28/2022atient is complaining of nausea . Denies any vomiting dietary considerations discussed . Reiterated to mom and patient the importance of calling us if she is unable to keep food or fluids down. TKRN Patient request for diagnostic testing 02/28/2022 08/27/2022 Overview: 02/28/2022 Patient desires aneuploidy screening. She is given contact information for [employer] to call for insurance coverage information. Declines genetic carrier screening testing as mother says she has had that in the past.Nathaniel Mckinney RN Supervision of high risk pre gnancy, antepartum 02/12/2022 09/03/2022 Last Assessment & Plan: NIPS risk reducing for aneuploidy. Anatomic survey at 18-20 weeks. Reviewed recommendations for influenza an COVID vaccination. Continue routine OB care with primary OB and co-management with MFM. Midtrimester counseling provided. Nicotine use disorder, F17.2 07/24/2021 08/27/2022 Generalized epilepsy 07/23/2021 023 ADD (attention deficit disorder) 12/14/2009 09/03/2022 documented as of this encounter (statuses as of 04/05/2023) [facility]04-23-2023 History of Past illness Narrative* Problem Noted Date Diagnosed Date Resolved Date Encounter for induction of labor 09/22/2022 09/28/2022 Overview: - IOL seizures - GBS negative - pitocin per protocol (offx1, 12x1) - epidural in place - amniotomy @0800 clear - s/p cytotec x5 - s/p walters balloon - IUPC - FSE - amnioinfusion Anemia, antepartum, third trimester 07/30/2022 09/03/2022 Overview: Repeat Hb @32 w fine Vaginal bleeding in pregnanc y, second trimester 04/23/2022 08/27/2022 Last Assessment & Plan: Patient assessed in ER over weekend for an episode of VB that resolved. US today reassuring. Bleeding precautions were reviewed. related nausea, antepartum 02/28/2022 09/03/2022 Overview: 02/28/2022atient is complaining of nausea . Denies any vomiting dietary considerations discussed . Reiterated to mom and patient the importance of calling us if she is unable to keep food or fluids down. TKRN Patient request for diagnostic testing 02/28/2022 08/27/2022 Overview: 02/28/2022 Patient desires aneuploidy screening. She is given contact information for [employer] to call for insurance coverage information. Declines genetic carrier screening testing as mother says she has had that in the past.Nathaniel Mckinney RN Supervision of high risk pre gnancy, antepartum 02/12/2022 09/03/2022 Last Assessment & Plan: NIPS risk reducing for aneuploidy. Anatomic survey at 18-20 weeks. Reviewed recommendations for influenza an COVID vaccination. Continue routine OB care with primary OB and co-management with MFM. Midtrimester counseling provided. Nicotine use disorder, F17.2 07/24/2021 08/27/2022 Generalized epilepsy 07/23/2021 023 ADD (attention deficit disorder) 12/14/2009 09/03/2022 documented as of this encounter (statuses as of 05/02/2023) [facility]04-23-2023 History of Past illness Narrative* Problem Noted Date Diagnosed Date Resolved Date Encounter for induction of labor 09/22/2022 09/28/2022 Overview: - IOL seizures - GBS negative - pitocin per protocol (offx1, 1/2x1) - epidural in place - amniotomy @0800 clear - s/p cytotec x5 - s/p walters balloon - IUPC - FSE - amnioinfusion Anemia, antepartum, third trimester 07/30/2022 09/03/2022 Overview: Repeat Hb @32 w fine Vaginal bleeding in pregnanc y, second trimester 04/23/2022 08/27/2022 Last Assessment & Plan: Patient assessed in ER over weekend for an episode of VB that resolved. US today reassuring. Bleeding precautions were reviewed. related nausea, antepartum 02/28/2022 09/03/2022 Overview: 02/28/2022atient is complaining of nausea . Denies any vomiting dietary considerations discussed . Reiterated to mom and patient the importance of calling us if she is unable to keep food or fluids down. TKRN Patient request for diagnostic testing 02/28/2022 08/27/2022 Overview: 02/28/2022 Patient desires aneuploidy screening. She is given contact information for [employer] to call for insurance coverage information. Declines genetic carrier screening testing as mother says she has had that in the past.Nathaniel Mckinney RN Supervision of high risk pre gnancy, antepartum 02/12/2022 09/03/2022 Last Assessment & Plan: NIPS risk reducing for aneuploidy. Anatomic survey at 18-20 weeks. Reviewed recommendations for influenza an COVID vaccination. Continue routine OB care with primary OB and co-management with MFM. Midtrimester counseling provided. Nicotine use disorder, F17.2 07/24/2021 08/27/2022 Generalized epilepsy 07/23/2021 023 ADD (attention deficit disorder) 12/14/2009 09/03/2022 documented as of this encounter (statuses as of 07/16/2023) [facility]04-[facility]-20[facility] History of Past illness Narrative* Problem Noted Date Diagnosed Date Resolved Date Encounter for induction of labor 09/22/2022 09/28/2022 Overview: - IOL seizures - GBS negative - pitocin per protocol (offx1, 1/2x1) - epidural in place - amniotomy @0800 clear - s/p cytotec x5 - s/p walters balloon - IUPC - FSE - amnioinfusion Anemia, antepartum, third trimester 07/30/2022 09/03/2022 Overview: Repeat Hb @32 w fine Vaginal bleeding in pregnanc y, second trimester 04/23/2022 08/27/2022 Last Assessment & Plan: Patient assessed in ER over weekend for an episode of VB that resolved. US today reassuring. Bleeding precautions were reviewed. related nausea, antepartum 02/28/2022 09/03/2022 Overview: 02/28/2022atient is complaining of nausea . Denies any vomiting dietary considerations discussed . Reiterated to mom and patient the importance of calling us if she is unable to keep food or fluids down. TKRN Patient request for diagnostic testing 02/28/2022 08/27/2022 Overview: 02/28/2022 Patient desires aneuploidy screening. She is given contact information for [facility] to call for insurance coverage information. Declines genetic carrier screening testing as mother says she has had that in the past.Nathaniel Mckinney RN Supervision of high risk pre gnancy, antepartum 02/12/2022 09/03/2022 Last Assessment & Plan: NIPS risk reducing for aneuploidy. Anatomic survey at 18-20 weeks. Reviewed recommendations for influenza an COVID vaccination. Continue routine OB care with primary OB and co-management with MFM. Midtrimester counseling provided. Nicotine use disorder, F17.2 07/24/2021 08/27/2022 Generalized epilepsy 07/23/2021 023 ADD (attention deficit disorder) 12/14/2009 09/03/2022 documented as of this encounter (statuses as of 08/04/2023) [facility]04-23-2023 History of Past illness Narrative* Problem Noted Date Diagnosed Date Resolved Date Encounter for induction of labor 09/22/2022 09/28/2022 Overview: - IOL seizures - GBS negative - pitocin per protocol (offx1, 1/2x1) - epidural in place - amniotomy @0800 clear - s/p cytotec x5 - s/p walters balloon - IUPC - FSE - amnioinfusion Anemia, antepartum, third trimester 07/30/2022 09/03/2022 Overview: Repeat Hb @32 w fine Vaginal bleeding in pregnanc y, second trimester 04/23/2022 08/27/2022 Last Assessment & Plan: Patient assessed in ER over weekend for an episode of VB that resolved. US today reassuring. Bleeding precautions were reviewed. related nausea, antepartum 02/28/2022 09/03/2022 Overview: 02/28/2022atient is complaining of nausea . Denies any vomiting dietary considerations discussed . Reiterated to mom and patient the importance of calling us if she is unable to keep food or fluids down. TKRN Patient request for diagnostic testing 02/28/2022 08/27/2022 Overview: 02/28/2022 Patient desires aneuploidy screening. She is given contact information for [facility] to call for insurance coverage information. Declines genetic carrier screening testing as mother says she has had that in the past.Nathaniel Mckinney RN Supervision of high risk pre gnancy, antepartum 02/12/2022 09/03/2022 Last Assessment & Plan: NIPS risk reducing for aneuploidy. Anatomic survey at 18-20 weeks. Reviewed recommendations for influenza an COVID vaccination. Continue routine OB care with primary OB and co-management with MFM. Midtrimester counseling provided. Nicotine use disorder, F17.2 07/24/2021 08/27/2022 Generalized epilepsy 07/23/2021 023 ADD (attention deficit disorder) 12/14/2009 09/03/2022 documented as of this encounter (statuses as of 08/21/2023) [facility]04-23-2023 History of Past illness Narrative* Problem Noted Date Diagnosed Date Resolved Date Encounter for induction of labor 09/22/2022 09/28/2022 Overview: - IOL seizures - GBS negative - pitocin per protocol (offx1, 1) - epidural in place - amniotomy @0800 clear - s/p cytotec x5 - s/p walters balloon - IUPC - FSE - amnioinfusion Anemia, antepartum, third trimester 07/30/2022 09/03/2022 Overview: Repeat Hb @32 w fine Vaginal bleeding in pregnanc y, second trimester 04/23/2022 08/27/2022 Last Assessment & Plan: Patient assessed in ER over weekend for an episode of VB that resolved. US today reassuring. Bleeding precautions were reviewed. related nausea, antepartum 02/28/2022 09/03/2022 Overview: 02/28/2022atient is complaining of nausea . Denies any vomiting dietary considerations discussed . Reiterated to mom and patient the importance of calling us if she is unable to keep food or fluids down. TKRN Patient request for diagnostic testing 02/28/2022 08/27/2022 Overview: 02/28/2022 Patient desires aneuploidy screening. She is given contact information for [facility] to call for insurance coverage information. Declines genetic carrier screening testing as mother says she has had that in the past.Nathaniel Mckinney RN Supervision of high risk pre gnancy, antepartum 02/12/2022 09/03/2022 Last Assessment & Plan: NIPS risk reducing for aneuploidy. Anatomic survey at 18-20 weeks. Reviewed recommendations for influenza an COVID vaccination. Continue routine OB care with primary OB and co-management with MFM. Midtrimester counseling provided. Nicotine use disorder, F17.2 07/24/2021 08/27/2022 Generalized epilepsy 07/23/2021 023 ADD (attention deficit disorder) 12/14/2009 09/03/2022 documented as of this encounter (statuses as of 09/12/2023) [facility]04-21-2023 History of Present illness Narrative* Karla Mcguire, [facility] - 09/20/2022 2:00 PM EDT [facility] [facility] Patient Name: Kiki JONES Date of : 2000 Epilepsy Pharmacy Consult - Consult Order Details Authorizing provider: Annette Crowder APRN.SARAH 07/15/2022 Epilepsy Pharmacy Consult Order - Location [facility] Communicate consult outcome with ordering provider (cc chart)? Yes Indication for Referral Epilepsy/Seizure Disorders Referral Goal(s) Comprehensive ASM mgmt Other: Please specify in comments First Appointment Within 2 weeks Referring Provider: Melva Green [id number] [facility] [id number] EPILEPSY PHARMACY CONSULT 09/20/2022 2:00 PM CHIEF COMPLAINT: Epilepsy HISTORY OF PRESENT ILLNESS Ms. Ware is a 21 year old female seen in [facility] for pharmacy consultation. Age of onset: 8 years CURRENT OUTPATIENT ANTISEIZURE MEDICATIONS (as of the start of the encounter) lacosamide (VIMPAT) 50 mg tab Take 1 tablet (50 mg) in combination with 200 mg tablet to make a total of 250 mg twice daily. Taking medication as prescribed clonazePAM (KLONOPIN) 0.5 mg tablet Take 1 tablet by mouth as needed (for seizures lasting longer than 3 minutes or cluster of seizures) for up to 180 days. Last dose yesterday, took 2 doses levETIRAcetam (KEPPRA) 1,000 mg tablet Take 4 tablets by mouth twice daily. Taking medication as prescribed zonisamide (ZONEGRAN) 100 mg capsule Take 3 capsules by mouth twice daily. Taking medication as prescribed cloBAZam (ONFI) 10 mg tab tablet Take 2 tablets by mouth twice daily for 180 days. Taking medication as prescribed lacosamide (VIMPAT) 200 mg Take 1 tablet by mouth twice daily for 180 days. Taking medication as prescribed Prior Anti-seizure Therapies: Trial Adequacy: Max Daily Dose Achieved: Side Effects: Effectiveness: Comments: Clobazam Lacosamide Levetiracetam Vagal Nerve Stimulation Valproate Zonisamide Current Outpatient Medications Medication Sig lacosamide (VIMPAT) 50 mg tab Take 1 tablet (50 mg) in combination with 200 mg tablet to make a total of 250 mg twice daily. clonazePAM (KLONOPIN) 0.5 mg tablet Take 1 tablet by mouth as needed (for seizures lasting longer than 3 minutes or cluster of seizures) for up to 180 days. levETIRAcetam (KEPPRA) 1,000 mg tablet Take 4 tablets by mouth twice daily. zonisamide (ZONEGRAN) 100 mg capsule Take 3 capsules by mouth twice daily. FERROUS SULFATE ORAL Take 325 mg by mouth daily at bedtime. cloBAZam (ONFI) 10 mg tab tablet Take 2 tablets by mouth twice daily for 180 days. lacosamide (VIMPAT) 200 mg Take 1 tablet by mouth twice daily for 180 days. Shower Chair with Back once daily. Use as directed folic acid 1 mg tablet Take 2 tablets by mouth twice daily. vit [id number] (PRENATE MINI, FERR ASP GLYCIN,) 18-1-350 mg cap Take 1 Dose by mouth once daily. No current facility-administered medications for this visit. ALLERGIES Allergen Reactions Depakote [Divalproe* Other: See Comments Abnormal LFTs PAST MEDICAL HISTORY Diagnosis Date ADHD (attention deficit hyperactivity disorder) Anemia Anxiety Esophageal reflux Intractable epilepsy without status epilepticus (HCC) Prematurity of fetus 09/03/2022 Traumatic brain injury (HCC) concussion at age year old PAST SURGICAL HISTORY Procedure Laterality Date PAST SURGICAL HISTORY OF VNS implant, vagal nerve stimulator- approx in 2015 FAMILY HISTORY Problem Relation Age of Onset No Known Problems Father Thyroid Cancer Mother No Known Problems Brother Asthma Brother outgrown asthma Allergies Brother other (drug overdose) Brother other (MVA) Brother Allergies Brother No Known Problems Sister other (retina cancer) Maternal Grandfather Uterine Cancer Maternal Grandmother No Known Problems Paternal Grandfather COPD Paternal Grandmother Diabetes Maternal Aunt Social History Tobacco Use Smoking status: Never Smokeless tobacco: Never Tobacco comments: smoking outside per mom Vaping Use Vaping Use: Never used Substance Use Topics Alcohol use: Not Currently Drug use: Not Currently Types: Marijuana Seizure Data History of status epilepticus or clusters of seizures: No Does the patient live alone?: No Functional status: independent in activities of daily living MEDICATION ADHERENCE ASSESSMENT: - Patient reports missing 1 doses on a weekly basis; Missed one day of Onfi; had eye flutters and 1drop seizure. Forgot to put Onfi in pill box that day. IMPRESSION: - Patient reports improvement in seizure frequency since last increase in Vimpat on 09/14. Only x1 drop seizure with eye lid fluttering (triggered by missed by Onfi doses). She utilized rescue medication following seizure. - Reports no concerns with medication adverse effects. - Patient has standing orders for levels, but only LEV was drawn. LEV was consistent with previous values; previously 26.7 and increased to 28.2. - Patient is being induced on Friday evening. PLAN: - Monitor levels every 3 weeks during . Standing orders for 3 ASMs. Educated the importance of obtaining levels during and following . - Continue current regimen CLB 20 mg BID, LCM 250 mg BID, LEV 4000 mg BID, ZNS 300/300. - Provided education on the importance of compliancy and encouraged utilization of tools that can aid in improving adherence. - Provided education on with current ASM regimen. There are risks with on current regimen: Zonisamide (sedation and decreased appetite) and Onfi (sedation). Would need to weigh the risks and benefits with baby's hardware developer, epileptologist, and patient. Dr. Rothman does NOT believe current regimen is a contraindication and always encourages as long as hardware developer is part of the decision. Based on the health status of the baby after and discussion with the hardware developer and epileptologist, may consider when medications are at troughs and use a combination of formula and breast milk. nursing consider zonisamide as a contrain dication. - Provided contact information and instructed patient to contact me if seizure frequency worsens orpresence of adverse effects prior to next appointment - Future considerations if seizures frequency increases: Increase LCM FOLLOW-UP: Pharmacy 10/08/22, Recommended for patient to schedule with Dr. Sky Benavidez spent a total of 20 minutes on the date of the service which included obtaining and/or reviewing separately obtained history and counseling and educating the patient/family/caregiver. Karla Mcguire RPh documented in [facility] encounterThe [facility] Miscellaneous Notes* Telephone Encounter - Nakia Dowling RN - 09/20/2022 11:01 AM EDT Pt called in and states she is unable to make it for her ultrasound appointment that was rescheduled for today d/t continuing car trouble. Reviewed labor precautions/when to present to OB ED with patient, including CTX, vaginal bleeding, leaking fluid, decreased/changes in movement, or if seizure occurs. Encouraged to call office with any questions. Pt verbalizes understanding. documented in this encounterThe [facility] Miscellaneous Notes* Telephone Encounter - Nakia Dowling RN - 09/19/2022 1:56 PM EDT Pt's mother called in stating they were having car trouble and would not be able to make it to scheduled ultrasound (BPP) and co-management visit and inquired if pt needed to be seen d/t IOL scheduled Friday 09/22. Per MD Shadia, asked pt's mother if they would be able to reschedule BPP for tomorrow (09/20) and agrees to get rescheduled. documented in this encounterThe [facility] History of Present illness Narrative* Caleb Santos MD - 09/18/2022 5:06 PM EDT S: Denies vaginal bleeding, leakage of fluid and Endorses regular movement. O: BP 140/80 Resp 18 LMP 01/09/2022 BMI 0.00 kg/(m^2) A/P: Kiik Ware is a 21 year old at 36w2d #36 weeks gestation -BPP scheduled #Seizure disorder -MFM onboard and recommended for 37 weeks, induction order placed -Vimpat increased to 250 mg twice daily -Has not had seizure activity since #Fall -[facility] was [facility] evaluation Luther HannonDO 09/18/2022 2:36 PM I saw and evaluated the patient. Discussed with the resident and agree with resident's findings andplan as documented in the resident's note. MFM recommended induction at 37 weeks gestation secondary to increased epileptic seizure activity. We will proceed with induction scheduling. [facility] Orders Placed This Encounter Induction L&D Order Comments: Cytotec induction, come in Sun night 8pm Standing Status: Future Order Specific Question: Procedure Location: Answer: [place] L&D Order Specific Question: Requested Time: Answer: 12:00 AM Order Specific Question: Primary Reason for Induction: Answer: Other clinically significant maternal disease (e.g., cancer, liver failure, dialysis) Order Specific Question: Tier: Answer: Tier 2 Order Specific Question: Clinical Pelvimetry: Answer: Yes - Assessed as adequate Order Specific Question: Cervical Ripening Planned? Answer: Yes Order Specific Question: EFW: Answer: 6.5 Lb Order Specific Question: GA at Scheduled Delivery Date: Answer: < 39 weeks Order Specific Question: MFM Advising Delivery: Answer: Yes URINE OB DIP B/O gbs Order Specific Question: Penicillin Allergy? Answer: NO PENICILLIN ALLERGY Caleb Santos MD documented in this encounterThe [facility] Miscellaneous Notes* Quick Notes - Luthermaria elena LaurenDO jerry - 09/18/2022 2:36 PM EDT S: Denies vaginal bleeding, leakage of fluid and Endorses regular movement. O: BP 140/80 Resp 18 LMP 01/09/2022 BMI 0.00 kg/(m^2) A/P: Kiki Ware is a 21 year old at 36w2d #36 weeks gestation -BPP scheduled #Seizure disorder -MFM onboard and recommended for 37 weeks, induction order placed -Vimpat increased to 250 mg twice daily -Has not had seizure activity since #Fall -Last was seen in [facility] for evaluation Luther HannonDO 09/18/2022 2:36 PM I saw and evaluated the patient. Discussed with the resident and agree with resident's findings andplan as documented in the resident's note. MFM recommended induction at 37 weeks gestation secondary to increased epileptic seizure activity. We will proceed with induction scheduling. [facility] Orders Placed This Encounter Induction L&D Order Comments: Cytotec induction, come in Sun night 8pm Standing Status: Future Order Specific Question: Procedure Location: Answer: [place] L&[place] Order Specific Question: Requested Time: Answer: 12:00 AM Order Specific Question: Primary Reason for Induction: Answer: Other clinically significant maternal disease (e.g., cancer, liver failure, dialysis) Order Specific Question: Tier: Answer: Tier 2 Order Specific Question: Clinical Pelvimetry: Answer: Yes - Assessed as adequate Order Specific Question: Cervical Ripening Planned? Answer: Yes Order Specific Question: EFW: Answer: 6.5 Lb Order Specific Question: GA at Scheduled Delivery Date: Answer: < 39 weeks Order Specific Question: MFM Advising Delivery: Answer: Yes URINE OB DIP B/O gbs Order Specific Question: Penicillin Allergy? Answer: NO PENICILLIN ALLERGY Caleb Santos MD documented in this encounterThe [facility] Nurse Note* Cady Spain Ma - 09/18/2022 2:26 PM EDT Movement? Active baby Vaginal Bleeding: NO Vaginal fluid leakage of fluid: NO Contractions: Baraga-Espinal type documented in this encounterThe [facility] Hospital Discharge instructions Patient Education 09/15/2022 01:20:42 7 - Labor and Delivery Outpatient Instructions (CUSTOM) [facility] DELIVERY OUTPATIENT HOME-GOING INSTRUCTIONS _X_ You are to follow up with your physician in 1___ days. ACTIVITY ___ Bedrest _x__Activity as tolerated ___ No work/school for ___ days. ___Other PRESCRIPTION GIVEN ___Yes NAUSEA/VOMITING ___ Take small, frequent amounts of clear liquids. Avoid fruit juices and milk. ___ Increase fluid intake to a minimum of 8 ounces of fluid every hour while awake. ___ Soft diet. Rice, crackers, bananas, Jell-O, cooked carrots, applesauce. ___ [place] diet. Avoid caffeine, chocolate, alcohol, spiced/greasy foods. URINARY TRACT INFECTION ___ Drink 8-12 glasses of water every day. ___ Urinate frequently; do not limit fluids to reduce frequency of urination. ___ Call your physician if burning and frequency with urination returns after taking all your medication. ___ Call your physician if you have a temperature of 100.4 degrees Fahrenheit or higher. ___ Wipe from front to back. SIGNS OF PRE-ECLAMPSIA ___ Severe heartburn. ___ Persistent headache not relieved by Tylenol. ___ Increased in swelling of face, hands and feet. ___ Blurred vision, double vision, or spots in the eyes. ___ Persistent vomiting. ___ *Convulsions or seizures. LABOR ___ Restrict activity. _x__ Drink 8-12 glasses of water every day. _x__ Urinate frequently ___ Pelvic rest. No sexual intercourse/ Call your physician if you experience: _x__ Increase in vaginal discharge, leaking fluid, or vaginal bleeding. _x__ More than 4, 5, or 6 contractions in one hour. _x__ Burning and frequency with urination. DECREASED MOVEMENT _x_ Lie down on your left side, drink some fluids and relax. Count the movements. You need tohave 10 movements in 2 hours. __x_ If you do not feel the 10 movements, call your physician. OTHER ___ After an exam you may experience some spotting or discharge. As long as it is not bright red and heavy like a period or continues to leak as if your water broke, it is to be expected. ___ LABOR Call your physician if you experience: ___ Painful uterine contractions every ___ minutes for ___ hours. ___A gush or continuous trickle of watery discharge. COME TO THE HOSPITAL AND CALL PHYSICIAN IF: ___ Your abdomen feels continually firm. ___ *Bleeding is bright red and enough to saturate a pad in one hour or less. *Call 911 or go to the nearest Emergency Room for assistance. Form 214444 D: 05/10 Document Released: 05/19/2006 Document Revised: 05/07/2012 Document Reviewed: 05/19/2006 ExitCare Patient Information 2012 OB10. Follow Up Care 09/14/2022 20:45:27 With:rommel portillo [facility] Address: When:09/16/2022 [facility] 04-15-2023 Miscellaneous Notes* Telephone Encounter - Nahomy Wilcox MD - 09/14/2022 10:07 PM EDT September 14, 2022 10:09 PM Paged pt had a a seizure and fell, please call Called [phone] - Kiki's mother answered. Kiki will be 36 weeks by 09/16; they are planning for induction at 37 weeks. She is in a local hospital for OB monitoring but will be discharged tonight. She had a mini- seizure - it happened so fast they can't tell if she hit her stomach or not. She did not stiffen, she was sitting on an exercise ball and her head dropped and she fell forward. Became limp - this is typical, seems like her brain stops working and her body drops. Was not a GTC, closer to her head drop episodes. Was only unconscious for 30 seconds while falling then woke up when she hit the ground. Then disoriented for another 30 seconds. This is exactly the same as what happened on 09/03 before admission. Additionally, every day she has at least one eye fluttering episode. In the last 3 days she has been having head drops 1- 2 times per day. She took klonopin for one earlier (has taken every other day in the last 4-5 days for clusters of eye fluttering episodes), and the most recent one happened 8PM. Last GTC was one month ago. We discussed increasing LCM from 200 mg BID to 250 mg BID to see if this may decrease frequency of head drop episodes. They have 200 mg tablets so will send 50 mg tablets to their pharmacy. We discussed that with her epilepsy it may not be possible for her to achieve seizure freedom, and while we are prioritizing avoiding GTCs and any seizure that could harm her or the baby. PRN Klonopinis okay for prolonged clusters. First thing Friday morning they will get a LEV level as recommended by our pharmacist (Karla Mcguire), who has been closely following. Will put order in to ensure this gets done. Encouraged her to call if any further concerns about frequency of seizures, so we can continue to titrate medications. documented in this encounterThe [facility]04-14-2023 Miscellaneous Notes* Telephone Encounter - Amirah Upton RN - 09/13/2022 1:41 PM EDT I spoke with Kiki to verify that she can make her appts on 09/19 for a BPP and a comanage with the M. She stated I most definitely can come to all my appts next week. I explained that she also has an appt with her primary OB provider and she agreed to come to that as well. documented in this encounterThe [facility]04-07-2023 Miscellaneous Notes* Telephone Encounter - Josefina Gutierrez APRN.CNP - 09/06/2022 3:42 PM EDT The following approved medication requests have been transmitted electronically. Requested Prescriptions Signed Prescriptions Disp Refills clonazePAM (KLONOPIN) 0.5 mg tablet 10 tablet 0 Sig: Take 1 tablet by mouth as needed (for seizures lasting longer than 3 minutes or cluster of seizures) for up to 180 days. Authorizing Provider: JOSEFINA GUTIERREZ APRN.CNP * Telephone Encounter - Mary Ellen Sotomayor RN - 09/06/2022 3:30 PM EDT I spoke with mom, need a refill on Klonopin 0.5 mg [facility] [place] [address] - [address] - [phone] Per mom LEV 4000 mg BID ZNS 300 mg BID CLB 20 mg BID LCM 200 mg BID She was informed no need to make changes at this time. Mary Ellen Sotomayor RN * Telephone Encounter - Mary Ellen Sotomayor RN - 09/06/2022 2:27 PM EDT Call was made to Divina , no answer. Message was left requesting a return call. Mary Ellen Mccracken RN * Telephone Encounter - Josefina Gutierrez APRN.CNP - 09/06/2022 1:52 PM EDT Patient admitted to the hospital on 09/03/22 due to seizure after her OB visit. Patient seen by Dr. Swanson at that time. Continue CBM 20-20 Continue LCM 200-200 Continue LEV 6745-6072 Increase ZNS from 200-300 to 300 mg BID; give an additional dose of 100 mg now Next step is to increase LEV to 4000 mg BID to possibly match pre-conception level of 30-40 Current meds on MAR: LEV 4000 mg BID ZNS 300 mg BID CLB 20 mg BID LCM 200 mg BID Please confirm doses with patient. If on these doses, would not make any further adjustments at this time. Josefina Gutierrez APRN.SARAH * Telephone Encounter - Mary Ellen Sotomayor RN - 08/30/2022 10:55 AM EDT Component Latest Ref Rng & Units 08/26/2022 Lacosamide 2.2 - 19.8 ug/mL 5.0 Desmethyllacosamide <2.6 ug/mL <0.6 Mary Ellen Sotomayor RN * Telephone Encounter - Patrick Arreola APRN.CNP - 08/28/2022 12:01 PM EDT Pt AEDS CLB 20 mg BID, LCM 200 mg BID, LEV 1750 mg BID, ZNS 200/300. Component Clobazam N-desmethylclobazam Lacosamide Desmethyllacosamide Zonisamide Levetiracetam Latest Ref Rng & Units 30 - 300 ng/mL 300 - 3000 ng/mL 2.2 - 19.8 ug/mL <2.6 ug/mL 10.0 - 40.0 ug/mL 12.0 - 46.0 ug/mL 07/23/2021 377.0 (H) 4,290.0 (H) 30.1 07/23/2021 43.6 (H) 07/24/2021 9.6 1.8 32.8 07/24/2021 11.0 1.7 02/13/2022 573.0 (H) 4680.0 (H) 11.4 1.3 35.3 40.6 03/26/2022 753.0 (H) 4710.0 (H) 15.9 1.2 37.2 60.7 (H) 05/14/2022 624.0 (H) 4710.0 (H) 11.9 1.3 34.0 31.4 07/10/2022 5.5 <0.6 20.5 20.7 07/11/2022 8.9 0.7 23.5 33.0 08/26/2022 340.0 (H) 2690.0 14.6 14.3 Lcm level in process Patrick Arreola APRN.SARAH * Telephone Encounter - Nasra BRIZUELA - 08/28/2022 10:43 AM EDT Test Results Request: Full name of person requesting results: Divina Ware Phone number: [phone] Type of results requested: go over lab results Patient of Dr. rothman documented in this encounterThe [facility]04-05-2023 Consult note* Zaynab Mark MD - 09/04/2022 1:46 PM EDTAssociated Order(s): CONSULT ANESTHESIA (AK,AV,EU,FV,HL,ISIDRO,MM,SP) OB ANESTHESIA HIGH RISK PRE-PROCEDURE ASSESSMENT SERVICE DATE: 09/04/2022 Consulting AUTOMOTIVE SERVICE TECHNICIAN: Dr. Jay Estimated Date of Delivery: 10/14/22 Consult Reason: poorly controlled seizure disorder, vagal nerve stimulator History: Kiki is a 21y/o at 34w2d with a past medical history significant for poorly controlled complex seizure disorder on multiple AEDs and vagal nerve stimulator who was recently admitted to L&D floor after a possible seizure after her OB appointment on 09/03. An anesthesia consult was placed in preparation for her delivery given poorly controlled complex seizures and the presence of an vagal nerve stimulator. Pt has been having seizures since age 8, she is currently on multiple AEDs and has had multiple seizures during this . She describes her seizures as occasional starring in the distance lasting up to 1 min or as grand mal seizures lasting up to 2 minutes. She cannot tell me what triggers them. Her vagal nerve stimulator helped somewhat with the seizures and is located on the left side of her chest. Regarding her delivery, she is interested in an epidural and wants to get it as soon as possible during her induction process which is scheduled for 37wks. Per her OB team, MFM and neurology were consulted to help with the coordination of her care. OBSTETRIC HISTORY: ACTIVE PROBLEM LIST Seizure disorder during (multiple AEDs; vagal nerve stimulator) S/P Placement of Vns (Vagus Nerve Stimulation) Device Obesity Affecting , Antepartum Partner with NF1 Abnormal Glucose Complicating Seizure (Hcc) Fall From Standing Prematurity of Fetus Previous OB Anesthetic: None Past Obstetric History: None Current Obstetric Problems/ Important Considerations: Intractable seizures GERD: GERD well controlled with no positional symptoms ACTIVE PROBLEM LIST Seizure disorder during (multiple AEDs; vagal nerve stimulator) S/P Placement of Vns (Vagus Nerve Stimulation) Device Obesity Affecting , Antepartum Partner with NF1 Abnormal Glucose Complicating Seizure (Hcc) Fall From Standing Prematurity of Fetus PAST MEDICAL HISTORY Diagnosis Date ADHD (attention deficit hyperactivity disorder) Anemia Anxiety Esophageal reflux Intractable epilepsy without status epilepticus (HCC) Prematurity of fetus 09/03/2022 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 Estimated body mass index is 37.38 kg/m as calculated from the following: Height as of 09/03/22: 160 cm (5' 3). Weight as of 09/03/22: 95.7 kg (211 lb). Hematocrit Date Value Ref Range Status 09/03/2022 38.1 36.0 - 46.0 % Final Platelet Count Date Value Ref Range Status 09/03/2022 253 150 - 400 k/uL Final Creatinine Date Value Ref Range Status 09/03/2022 0.56 (L) 0.58 - 0.96 mg/dL Final Previous Anesthesia: No history of adverse event Family history of anesthetic problems: None Airway Assessment: MP 4 Dentition: Poor dentition Missing tooth upper left and lower right Broken tooth upper left, upper right, lower left, and lower right Symptoms of Sleep Apnea: Denies ASA Class: 3 Assessment/Plan: Kiki is a 21y/o at 34w2d with a past medical history significant for poorly controlled complex seizure disorder on multiple AEDs and vagal nerve stimulator who was recently admitted to L&D floor after a possible seizure after her OB appointment on 09/03. An anesthesia consult was placed in preparation for her delivery given poorly controlled complex seizures and the presence of an vagal nerve stimulator. Overall, neither the seizure disorder nor the vagal nerve stimulator are a contraindication to neuraxial procedures for delivery. I explained in detail to pt and her mother the options for epidural or spinal (in case of a planned C- section) and all questions were answered. Final recs: - ok for neuraxial anesthesia for labor (epidural or spinal) - in case of , please make sure to use bipolar cautery (no monopolar) given the presence of vagal nerve stimulator - per neurology team the vagal nerve stimulator does not have to be turned off in case of a - would recommend interrogation of vagal nerve stimulator post-C/S SIGNATURE: Zaynab Mark MD PATIENT NAME: Kiki Ware DATE: September 04, 2022 TIME: 1:46 PM : 2000 documented in this encounterThe [facility]04-04-2023 Miscellaneous Notes* Telephone Encounter - Karla Mcguire RPh - 09/03/2022 5:06 PM EDT [employer] [facility] documented in this encounterThe [facility] Of [facility]04-04-2023 Miscellaneous Notes* Telephone Encounter - Ngoc Joyce RN - 09/03/2022 4:38 PM EDT Patient in [facility] ER for triage Ngoc Joyce RN documented in [place] encounterChad [place] [address]-04-2023 Miscellaneous Notes* Quick Notes - Carmella Olivier DO - 09/03/2022 1:26 PM EDT Images from the original note were not included. S: Patient denies any leakage of fluid or vaginal bleeding. She endorses irregular contractions andreports good movement. In regards to her seizure disorder management, she follows closely with neurology. She had Grand mal seizure 08/24 - while she was on the bathroom, she hit the floor. Her mom called 911 and she was taken to [facility]. Her and monitoring were reassuring at that time. She had a minor ALVARADO and bit her tongue at that time but is fully recovered. This past Friday (08/31) her neurologist increased her Keppra from 3000 mg to 6000 mg. She had Keppra blood drawn which increased but not as much as they were hoping with the double in her dosing. She had an absence seizure yesterday. Her mom is very concerned about the worsening seizure activity and the exacerbating her seizure disorder. She has an upcoming appointment with her neurologist today at 2:45 pm. Patient would like to discuss anesthesia consultation and management of her vagal nerve stimulator.Intrapartum the plan previously was to turn off her VNS and receive an early epidural to avoid pain. No additional complaints at this time. O: BP 126/83 Pulse (!) 133 Ht 5' 3 (1.6 m) Wt 211 lb (95.7 kg) LMP 01/09/2022 SpO2 97% BMI 37.38 kg/m BMI 37.38 kg/(m^2) General: conversational, accompanied by mother and fiance Poor dentition. A/P: Kiki Ware is a 21 year old at 34w1d Partner with NF1 - planning for assessment Seizure disorder during (multiple AEDs; vagal nerve stimulator) - worsening seizure activity starting around 28 weeks (recent grand mal requiring hospital evaluation) - Keppra recently increased from 3000mg to 6000mg - has upcoming appt with neurology today - due to worsening seizure like activity would recommend delivery at 37 weeks due to maternal risk from increasingly seizure week - recommend q 4 weeks growths and weekly testing - in regards to delivery experience, patient will need an anesthesia consult - tentatively plan for vagal nerve stimulator to be turned off during labor - recommend avoiding pain and sleep deprivation Return to clinic in 2 weeks. Carmella Olivier, 09/03/2022 1:26 PM Attending Note I evaluated the patient and personally participated in the garcia components. I agree with the resident's findings and plan as documented and have discussed the case and management of the patient's carewith the resident. Pt seen and evaluated as above. Pt on poly therapy for her seizure disorder. Pt having increased seizure frequency now. Having absence seizures almost every day and has had 2 grand mal seizures in the last month. Pt did have a fall the last time. Today on her way out of the clinic she had another fall and was sent to [facility] for evaluation. Need to rule out another seizure today. Discussed her delivery at 37 weeks or earlier if indicated. Discussed this with Karla [facility]nor [facility] who is managing her meds and she will increase her zonisamidetoday. Anesthesia consulted and will see her for consult today. RTC in 2 weeks Signature: Layo Peters MD Date: 09/03/2022 Time: 2:42 PM I spent a total of 60 minutes on the date of the service which included preparing to see the patient, [id number] patient care, completing clinical documentation, obtaining and/or reviewing separately obtained history, counseling and educating the patient/family/caregiver, communicating with other HCPs (not separately reported), communicating results to the patient/family/caregiver, and care coordination (not separately reported). documented in this encounterThe University Of [facility]04-04-2023 Nurse Note* Ariana Hansen RN - 09/03/2022 1:12 PM EDT Pt presents for consult. States good FM, reviewed kick counts. Doptones 154. States had last mildseizure on 09/02 and last grand mal seizure on 08/24. HR noted to be 133 with pulse ox 97% on RA. Rechecked and pulse was 125. Pt denies SOB or CP. documented in this encounterThe University Of [facility] Center04-04-2023 Miscellaneous Notes* Telephone Encounter - Mary Ellen Sotomayor RN - 09/03/2022 8:05 AM EDT See Limundo message dates 08/28/2022 Mary Ellen Sotomayor RN * Telephone Encounter - Mary Ellen Sotomayor RN - 08/26/2022 5:07 PM EDT 08/13/2022 ELZA PLAN: - Monitor levels every 3 weeks during (past due from August 01). Standing orders for 3 ASMs. Educated the importance of obtaining levels during . - Continue current regimen CLB 20 mg BID, LCM 200 mg BID, LEV 1750 mg BID, ZNS 200/300. - Provided education on the importance of compliancy and encouraged utilization of tools that can aid in improving adherence (like alarm on phone). - Provided contact information and isntructed patient to contact me if seizure frequency worsens orpresence of adverse effects prior to next appointment - Future considerations if seizures frequency increases: Increase LEV or LCM [[[[[[[[[[[[[[[[[[ Mary Ellen Sotomayor RN documented in this encounterThe University Of [facility]04-01-2023 Miscellaneous Notes* Telephone Encounter - Edward Alexis I, MD - 08/31/2022 3:53 PM EDT Paged that pt has been having several mini seizures today with eye fluttering. Took rescue Klonopin. Increased Keppra to 2000 mg BID on 08/24. Level checked on 08/26 was 14.3. Spoke with epilepsy consult staff Dr. Kulkarni. Will have pt take 2 gram LEV now and increase to 3000mg BID. Will check level Friday and have pt see Scott Mcguire(message sent). LEV script sent to local pharmacy. documented in this encounterThe [facility] Of [facility]03-29-2023 Miscellaneous Notes* Telephone Encounter - Patrick Arreola APRN.MEDICAL OFFICE COORDINATOR - 08/28/2022 10:44 AM EDT The following approved medication requests have been transmitted electronically. Requested Prescriptions Signed Prescriptions Disp Refills clonazePAM (KLONOPIN) 0.5 mg tablet 10 tablet 0 Sig: Take 1 tablet by mouth as needed (for seizures lasting longer than 3 minutes or cluster of seizures) for up to 180 days. Authorizing Provider: PATRICK ARREOLA APRN.MEDICAL OFFICE COORDINATOR * Telephone Encounter - Nasra BRIZUELA - 08/28/2022 10:40 AM EDT PATIENT OUT OF MEDICATION, PAGED DOMINGO * Telephone Encounter - Jossie Diego Asst - 08/27/2022 2:32 PM EDT Prescription Refill: Requested by: parent Please E-Scribe Caller Contact Number: [phone] Pharmacy Name: [facility] Number: [id number] Generic/ brand: Generic 30 or 90 day supply requested: 30 Last appointment: 07/12/22 Next Appointment: n/a Patient of Dr. Rothman documented in this encounterThe [facility] Of [facility]03-28-2023 Miscellaneous Notes* Quick Notes - Arianne Briggs MD - 08/27/2022 7:02 PM EDT Denies any vaginal bleeding, leaking of fluid, cramping or contractions; good FM. TSF from [facility] as given medical history would like to be at tertiary facility & plans [facility]. Per MFM notes rec third trimester NICU consult (also feel ANES consult- given vagal nerve stimulator in place appropriate). States last Sz was this weekend (meds have required moderate adjusting due to ). Has still not done 3h- encouraged to do (or can begin pattern testing)- plans to do 3h. Last CBC indicate no anemia. Growth scan last week was fine (growth 24%, SUNDEEP fine)- will need scan at 26w with QW NST then due to BMI>35. Plan repeat MFM consult at [facility] soon to begin coordinating for delivery. Arianne Briggs MD Medical Decision Making: Problems: Moderate: 1+ chronic illnesses with change Data: Unique test result(s) reviewed: 3+ Medical Decision Making Level: 4 - Moderate documented in this encounterThe [facility] Of [facility]03-28-2023 Nurse Note* Cady Spain Ma - 08/27/2022 3:09 PM EDT Movement? Active baby Vaginal Bleeding: NO Vaginal fluid leakage of fluid: NO Contractions: Baraga-Espinal type documented in this encounterThe University Of [facility]03-25-2023 Miscellaneous Notes* Telephone Encounter - Zac Moser MD - 08/24/2022 8:20 PM EDT Spoke to Divina Ware. She states the patient had a typical grand mal seizure which lasted ~2 minute on 08/24/22. She presented to [facility] ED and was observed without medication adminstration or changes. She had 2 more seizures at 17:00 she was staring for about 1 minute. At ~18:00, she had another new type of seizure with rapid eye blinking and facial contortions all over her face which lasted about 1 minute. These were witnessed by her father. She was given 0.5 mg x 2 tab (1 mg total) of Klonopin. She has not received her nightly antiseizure medications doses yet. We discussed that the patientcould benefit from an increase in her Keppra to 2000 mg (4 tablets) twice daily starting tonight (). Her mother voiced her understanding. She will make this change and call Dr. Rothman's office on 08/26/22. documented in this encounterThe University Of [facility] Center03-25-[address] Reza [facility] August 24, 2022 8:38am Note Date/Time August 24, 2022 5:4 3am [facility] Medical Records Department [address] [place] [address] Emergency Department Summary 08/24/22 MR#: [id number] Acct: [id number] Name: KIKI WARE Rep # :[id number] : 2000 21 From: Daniel Reyna PCP: Dr. Renée Corbett MD Status:REG [facility] History of Present Illness Chief Complaint: Seizure Informant: patient Onset/Context/Timing Onset: Today Context: Sudden Onset Timing: Lasts (2 to 3 minutes) Quality: Tonic-clonic Location: Generalized Worsened by: Nothing Relieved by: Nothing Narrative Narrative: Patient presents with a seizure that occurred today. Patient states she was on the toilet when she had a seizure. Mother states that the seizure lasted approximately 2 to 3 minutes. Mother states it was generalized tonic-clonic seizure. Mother states patient has a history of seizure disorder. Mother states she follows with [facility] neurology for her seizures. Mother states that patient was scheduled to have levels drawn of her antiepileptic medications but has not done so yet. Patient states she is approximately 32 weeks . Patient denies any abnormal vaginal bleeding or discharge. Patient denies any cramping or pelvic pain. PFSH PFS Medical History Depression Seizure Home Medications lacosamide 100 mg tablet (Vimpat) 200 mg PO BID 10/24/16 [History Last Taken Unknown] levetiracetam 500 mg tablet 1,575 mg PO BID 02/28/17 [History Last Taken Unknown] zonisamide 100 mg capsule (Zonegran) 200 mg PO DAILY 02/28/17 [History Last Taken Unknown] clobazam 20 mg tablet (Onfi) 20 mg PO BID 08/28/21 [History Last Taken Unknown] zonisamide 100 mg capsule 300 mg PO QHS 08/28/21 [History Last Taken Unknown] clonazepam 0.5 mg tablet 0.5 mg PO DAILY PRN Seizure Activity 10/28/21 [History Last Taken Unknown] Allergy/AdvReac Type Severity Reaction Status Date / Time divalproex sodium Allergy Other Verified 08/24/22 05:25 [From Depakote] Surgical History no surgical history no surgical history Social History Smoking Status: Never smoker ROS ROS ED Constitutional Constitutional ED: Denies chills or fever(s) Eyes Eyes: Denies blurry vision or change in vision ENT ENT ED: Denies rhinorrhea or sore throat Cardiovascular Cardiovascular: Reports chest pain; Denies palpitations Respiratory/Chest Respiratory/Chest: Reports cough and dyspnea Gastrointestinal Gastrointestinal: Denies nausea or vomiting Genitourinary Genitourinary ED: Denies dysuria or hematuria Musculoskeletal Musculoskeletal: Reports back pain; Denies neck pain Integumentary Denies abscess or rash Neurologic Neurologic: Denies headache(s) or weakness Allergic/Immunologic Allergic/Immunologic ED: Denies mouth swelling or urticaria EXAM Physical Exam Const Vital Signs: 08/24/22 05:22 08/24/22 05:29 Temperature 97.6 F L Temperature Source Temporal Pulse Rate 92 Respiratory Rate 16 Blood Pressure 128/92 H Blood Pressure Mean 104 Pulse Ox 98 98 Oxygen Delivery Method Room Air Room Air Positive well nourished and well developed General Appearance ED: well developed and NAD HEENT Reports moist mucous membranes Neck supple and no JVD Resp normal respiratory effort and clear to auscultation bilaterally Cardio regular rate, regular rhythm and no murmurs GI normal to inspection, nondistended, normoactive bowel sounds and non-tender Palpation: soft Extremity normal to inspection General Extremety ED: Negative for edema or tenderness General Extremity: Negative for edema Neuro oriented x3, CN's II-XII intact bilaterally and no sensory deficits noted Sensorium / Orientation: alert Motor Exam: strength 5/5 throughout Psych mental status grossly normal Skin no rashes or lesions noted MDM MDM MDM Narrative Medical decision making narrative: Differential diagnosis includes breakthrough seizure, electrolyte abnormality, and urinary tract infection. CBC will be obtained to assess for leukocytosis and anemia. Comprehensive metabolic profile will be obtained to assess for electrolyte abnormality, hepatic function, and renal function. Urinalysis will be obtained to assess for urinary tract infection and hematuria. Lab Data Attestation: I reviewed the patient's lab results. Lab results narrative: CBC was reviewed. There is a mild anemia with a hemoglobin of 11.7. White blood cell count was also 11.7. Platelet count was normal. Comprehensive metabolic profile was reviewed. There is a mild hypokalemia of 3.3. The remaining electrolytes were within normal limits. Liver function tests were within normal limits. Urinalysis was reviewed. There is no evidence of urinarytract infection or hematuria. Labs: Laboratory Results - last 24 hr 08/24/22 08/24/22 08/24/22 06:00 06:00 06:40 WBC Cancelled Corrected WBC Cancelled RBC Cancelled Hgb Cancelled Hct Cancelled MCV Cancelled MCH Cancelled MCHC Cancelled RDW Std Deviation Cancelled RDW Coeff of Rafiq Cancelled Plt Count Cancelled MPV Cancelled Immature Gran % (Auto) Cancelled Neut % (Auto) Cancelled Lymph % (Auto) Cancelled [place] % (Auto) Cancelled Eos % (Auto) Cancelled Baso % (Auto) Cancelled Absolute Neuts (auto) Cancelled Absolute Lymphs (auto) Cancelled Total Counted Cancelled Neutrophils % (Manual) Cancelled Band Neutrophils % Cancelled Lymphocytes % (Manual) Cancelled Monocytes % (Manual) Cancelled Eosinophils % (Manual) Cancelled Basophils % (Manual) Cancelled Metamyelocytes % Cancelled Myelocytes % Cancelled Promyelocytes % Cancelled Blast Cells % Cancelled Plasma Cell % (Manual) Cancelled Other Cells % Cancelled Nucleated RBC % Cancelled Nucleated RBCs/100 WBC Cancelled Differential Comment Cancelled Diff Path Review Cancelled Hypersegmented Neuts Cancelled Atypical Lymphocytes Cancelled Reactive Lymphocytes Cancelled Smudge Cells Cancelled Toxic Granulation Cancelled Toxic Vacuolation Cancelled Dohle Bodies Cancelled Libia Rods Cancelled Platelet Estimate Cancelled Plt Morphology Comment Cancelled RBC Morphology Cancelled Polychromasia Cancelled Hypochromasia Cancelled Poikilocytosis Cancelled Basophilic Stippling Cancelled Anisocytosis Cancelled Microcytosis Cancelled Macrocytosis Cancelled Spherocytes Cancelled Sickle Cells Cancelled Target Cells Cancelled Tear Drop Cells Cancelled Ovalocytes Cancelled Stomatocytes Cancelled [place] Bodies Cancelled Madan Cells Cancelled Bite Cells Cancelled Crenated Cell Cancelled Acanthocytes (Spur) Cancelled Rouleaux Cancelled Schistocytes Cancelled Sodium Cancelled Potassium Cancelled Chloride Cancelled Carbon Dioxide Cancelled Anion Gap Cancelled BUN Cancelled Creatinine Cancelled Estim Creat Clear Calc Cancelled Est GFR (MDRD) Af Amer Cancelled Est GFR (MDRD) Non-Af Cancelled BUN/Creatinine Ratio Cancelled Glucose Cancelled Calcium Cancelled Total Bilirubin Cancelled AST Cancelled ALT Cancelled Alkaline Phosphatase Cancelled Total Protein Cancelled Albumin Cancelled Globulin Cancelled Albumin/Globulin Ratio Cancelled Urine Color Yellow Urine Clarity Clear Urine pH 7.0 Ur Specific [place] 1.010 Urine Protein 15 H Urine Glucose (UA) Normal Urine Ketones Negative Urine Occult Blood 50 H Urine Nitrite Negative Urine Bilirubin Negative Urine Urobilinogen Normal Ur Leukocyte Esterase 25 H Urine RBC 0 SEEN Urine WBC 0-5 SEEN Ur Squamous Epith Cells 0-5 SEEN Urine Bacteria 2+ Urine Mucus 0 SEEN 08/24/22 08/24/22 06:45 06:45 WBC 11.7 H Corrected WBC RBC 4.11 L Hgb 11.7 L Hct 37.2 MCV 90.5 MCH 28.5 MCHC 31.5 L RDW Std Deviation 57.5 H RDW Coeff of Rafiq 17.4 H Plt Count 253 MPV 10.7 Immature Gran % (Auto) 2.300 H Neut % (Auto) 69.7 Lymph % (Auto) 18.4 L [place] % (Auto) 6.1 Eos % (Auto) 3.0 Baso % (Auto) 0.5 Absolute Neuts (auto) 8.1 H Absolute Lymphs (auto) 2.15 Total Counted Neutrophils % (Manual) Band Neutrophils % Lymphocytes % (Manual) Monocytes % (Manual) Eosinophils % (Manual) Basophils % (Manual) Metamyelocytes % Myelocytes % Promyelocytes % Blast Cells % Plasma Cell % (Manual) Other Cells % Nucleated RBC % 0 Nucleated RBCs/100 WBC Differential Comment Diff Path Review Hypersegmented Neuts Atypical Lymphocytes Reactive Lymphocytes Smudge Cells Toxic Granulation Toxic Vacuolation Dohle Bodies Libia Rods Platelet Estimate Plt Morphology Comment RBC Morphology Polychromasia Hypochromasia Poikilocytosis Basophilic Stippling Anisocytosis Microcytosis Macrocytosis Spherocytes Sickle Cells Target Cells Tear Drop Cells Ovalocytes Stomatocytes [place] Bodies Gaffney Cells Bite Cells Crenated Cell Acanthocytes (Spur) Rouleaux Schistocytes Sodium 139 Potassium 3.3 L Chloride 110 H Carbon Dioxide 22.0 Anion Gap 7 BUN 7 Creatinine 0.72 Estim Creat Clear Calc 103.10 Est GFR (MDRD) Af Amer 132 Est GFR (MDRD) Non-Af 109 BUN/Creatinine Ratio 9.8 L Glucose 132 H Calcium 9.0 Total Bilirubin < 0.10 L AST 10 L ALT 16 Alkaline Phosphatase 118 H Total Protein 6.0 L Albumin 2.3 L Globulin 3.7 Albumin/Globulin Ratio 0.6 L Urine Color Urine Clarity Urine pH Ur Specific [place] Urine Protein Urine Glucose (UA) Urine Ketones Urine Occult Blood Urine Nitrite Urine Bilirubin Urine Urobilinogen Ur Leukocyte Esterase Urine RBC Urine WBC Ur Squamous Epith Cells Urine Bacteria Urine Mucus Treatment and Re-Evaluation :: Seizure precautions were maintained. Patient had no further seizure activity here in the emergency department. Patient is not on any antiepileptics take areamenable to laboratory levels. Case was discussed with Dr. Mcdaniel from [facility] [employer]ICE [employer]CHNICIAN. She will have the patient go to labor and delivery for monitoring. Patient was advised of this. Patient will be instructed to go directly to OB triage. Patient understands and is agreeable with the plan. Allquestions were answered. Discharge Plan Triage Chief Complaint: Seizure ED Provider: Daniel Reza Dx/Rx/DC Orders Clinical Impression: Breakthrough seizure, Seizure disorder, Instructions: ED Seizure, Recurrent (Adult), ED Established ... Prescriptions: No Action lacosamide [Vimpat] 100 MG tablet 200 mg PO BID levetiracetam 500 MG tablet 1,575 mg PO BID zonisamide [Zonegran] 100 MG capsule 200 mg PO DAILY zonisamide 100 mg Capsule 300 mg PO QHS clobazam [Onfi] 20 mg Tablet 20 mg PO BID clonazepam 0.5 mg tablet 0.5 mg PO DAILY PRN (Reason: Seizure Activity) Label Comments: TAKE 1 TABLET BY MOUTH NEEDED FOR UP TO 10 DOSES. Primary Care Provider: Renée Corbett Referrals: Karthikeyan Mcdaniel MD [Med Staff - Active Staff] - As soon as possible Renée Corbett MD [Primary Care Provider] - 5-7 Days Activity Restrictions/Additional Instructions: Go to the OB triage area so that they can do monitoring. Disposition Disposition: Home, Self Care What to do if you have Problems For any increased pain, shortness of breath, bleeding, nausea or vomiting, chestpain, or any unexpected problems, contact your Primary Care Provider. Call [facility] ([phone]) or report to the closest Emergency Room. Call 911 if necessary. 08/24/22 0838 <Electronically signed by Daniel Reza DO> Cosigner Signature (if applicable): CC: Dr. Renée Corbett MD ~ Signed [facility] Work Phone: [phone] Hospital Discharge instructions Patient Education 08/23/2022 03:12:30 Chest Pain, Uncertain Cause Uncertain Causes of Chest Pain Chest pain can happen for a number of reasons. Sometimes the cause can't be determined. If your condition does not seem serious, and your pain does not appear to be coming from your heart, your healthcare provider may recommend watching it closely. Sometimes the signs of a serious problem take moretime to appear. Many problems not related to your heart can cause chest pain. These include: Musculoskeletal. Costochondritis is an inflammation of the tissues around the ribs that can occur from trauma or overuse injuries, or a strain of the muscles of the chest wall Respiratory. Pneumonia, collapsed lung (pneumothorax), or inflammation of the lining of the chest and lungs (pleurisy) Gastrointestinal. Esophageal reflux, heartburn, ulcers, or gallbladder disease Anxiety and panic disorders Nerve compression and inflammation Rare miscellaneous problems such as aortic aneurysm (a swelling of the large artery coming out of the heart) or pulmonary embolism (a blood clot in the lungs) Home care After your visit, follow these recommendations: Rest today and avoid strenuous activity. Take any prescribed medicine as directed. Be aware of any recurrent chest pain and notice any changes Follow-up care Follow up with your healthcare provider if you do not start to feel better within 24 hours, or as advised. Call 911 Call 911 if any of these occur: A change in the type of pain: if it feels different, becomes more severe, lasts longer, or begins to spread into your shoulder, arm, neck, jaw or back Shortness of breath or increased pain with breathing Weakness, dizziness, or fainting Rapid heart beat Crushing sensation in your chest When to seek medical advice Call your healthcare provider right away if any of the following occur: Cough with dark colored sputum (phlegm) or blood Fever of 100.4 F (38 C) or higher, or as directed by your healthcare provider Swelling, pain or redness in one leg [id number] [employer]. [address] [place] [address]. All rights reserved. This information is not intended as a substitute for professional medical care. Always follow yourhealthcare professional's instructions. Follow Up Care 08/23/2022 01:24:44 With:RENÉE CORBETT Address: [address] [place] [id number] Business (1) When:2-4 days Comments:Follow-up with your doctor, take Tylenol for pain, return if worsening shortness of breath chest pain or other concerning symptoms. [facility] 03-24-2023 Note Discharge Instructions Thank you for allowing [facility] to assist you with your healthcare needs. The following is importantdischarge information regarding your hospital visit. Diagnosis from Today's Visit Chest pain Chest pain Cough What to Do Next Instructions from Your Care Team No qualifying data available. Post Acute Orders No qualifying data available. You Need to Schedule the Following Appointments Follow Up with RENÉE CORBETT When Within 2-4 days Why: Follow-up with your doctor, take Tylenol for pain, return if worsening shortness of breath chest pain or other concerning symptoms. Where: [address] [place] [address] [place] [address]- Business (1) Allergies Depakote Medications Please ask your primary doctor or pharmacist before taking any other medication not listed, including over the counter drugs, herbal medications, vitamins and or supplements as they may interact withyour home medications. What How Much When Instructions Last Dose Unchanged clonazePAM (KlonoPIN 0.5 mg oral tablet) 1 tab(s) by mouth As needed for Seizures Unchanged folic acid Once a day Unchanged lacosamide 200 Milligram Two (2) times a day Unchanged levETIRAcetam (Keppra 500 mg oral tablet) 3.5 tab(s) by mouth Two (2) times a day Unchanged zonisamide (zonisamide 100 mg oral capsule) 3 cap by mouth Daily at bedtime Unchanged zonisamide (zonisamide 100 mg oral capsule) 2 cap by mouth Once a day (in the morning) Please take this list to your next doctor s visit. Bring all medications you take, including over the counter medications, herbals and other supplements with you to your doctor s visit. Patients and families are reminded to discard old lists and to update any records with all medication providers or retail pharmacies. Education Materials Uncertain Causes of Chest Pain Chest pain can happen for a number of reasons. Sometimes the cause can't be determined. If your condition does not seem serious, and your pain does not appear to be coming from your heart, your healthcare provider may recommend watching it closely. Sometimes the signs of a serious problem take moretime to appear. Many problems not related to your heart can cause chest pain. These include: Musculoskeletal. Costochondritis is an inflammation of the tissues around the ribs that can occur from trauma or overuse injuries, or a strain of the muscles of the chest wall Respiratory. Pneumonia, collapsed lung (pneumothorax), or inflammation of the lining of the chest and lungs (pleurisy) Gastrointestinal. Esophageal reflux, heartburn, ulcers, or gallbladder disease Anxiety and panic disorders Nerve compression and inflammation Rare miscellaneous problems such as aortic aneurysm (a swelling of the large artery coming out of the heart) or pulmonary embolism (a blood clot in the lungs) Home care After your visit, follow these recommendations: Rest today and avoid strenuous activity. Take any prescribed medicine as directed. Be aware of any recurrent chest pain and notice any changes Follow-up care Follow up with your healthcare provider if you do not start to feel better within 24 hours, or as advised. Call 911 Call 911 if any of these occur: A change in the type of pain: if it feels different, becomes more severe, lasts longer, or begins to spread into your shoulder, arm, neck, jaw or back Shortness of breath or increased pain with breathing Weakness, dizziness, or fainting Rapid heart beat Crushing sensation in your chest When to seek medical advice Call your healthcare provider right away if any of the following occur: Cough with dark colored sputum (phlegm) or blood Fever of 100.4 F (38 C) or higher, or as directed by your healthcare provider Swelling, pain or redness in one leg [id number] [employer] [address] [place] [address]. All rights reserved. This information is not intended as a substitute for professional medical care. Always follow yourhealthcare professional's instructions. Additional Information VACCINATE! IT SAVES LIVES! Members of the community who have not yet received the COVID-19 vaccine and would like to receive it can visit one of [facility] vaccine clinics. There are many vaccine clinic locations within the [facility]. For locations and available times, please visit www.[email or web address].[place].gov/. It is important to note that some COVID mobile vaccine clinics are held outdoors and may be canceled in rainy or stormy conditions. To learn more about pediatric vaccinations (ages 5-11), we invite you to visit the [facility] webpage. https://www.[email or web address].org/pages/[email or web address]-Zurlm-Pcpmqdjrlyx-Xpxebqiocw-Wvabl-Xbe stions.htmlTo learn more about the COVID-19 vaccine, we invite you to visit the CDC website for a list of frequently asked questions. https://www.cdc.gov/coronavirus/2019-ncov/vaccines/faq.html [facility] Patient Portal Access Instructions: Stay connected with your healthcare team and access your personal medical information anytime with the [facility] Patient Portal. If you would like a full copy of your medical records please contact the [facility] Medical Records Department Friday through Friday between 8a.m. and 4:30p.m. Please follow the directions below to access the portal: 1.Access the email account you provided upon registration to the [facility].2.Look for an invitation email from [facility].3.Open the email and access the invitation link: Accept Invitation to [facility]4.Fill in the required pearce to create your account. Sign into www.[employer] with your username and password that you created in the above steps to stay up to date. You can then view a summary of results, a summary of your visits, and the ability to download your summaries to your computer or send the information securely to a physician. Remember that your healthcare information is confidential, so carefully consider who you will allow to register on the [facility] Patient Portal for access to your information. You can also access the [facility] Patient Portal on the [employer]. Simply click on Health Records under [employer] and then click on the [employer] logo. HOW TO SAFELY DISPOSE OF PRESCRIPTION MEDICATIONS Please use one of the following methods to safely dispose of your unused medications. 1.Use a drug disposal kit: the drug disposal pouch allows you to safely discard your old and unuseddrugs. Ask your nurse to give you one when you are discharged.2.Visit a local take-back location: Many local pharmacies and police departments have programs that collect old and unwanted prescriptiondrugs. Call your local pharmacy or go to http://bit.[employer]co[employer]ix/7A5Cs3s to find one close to you.3.Make use of household items: Use cat litter or old coffee grounds to dispose medications if other options arenot available. Mix your drugs with these household products, seal them in an airtight container andthrow it into the garbage. Call [facility]: [phone] to be sure your drugs can be disposed of in this way. Some medicines may require a different approach.4.Never flush your medications down the toilet. IF YOU HAVE BEEN PRESCRIBED AN OPIOIDS FOR PAIN If you have been prescribed an opioid (such as hydrocodone, oxycodone or morphine), it is critical to understand the possible side effects and risks of opioid pain medications. Even when taken as directed, opioids can have several side effects including: Tolerance, meaning you might need to take more of a medication for the same pain relief. Nausea, vomiting and/or constipation. Sleepiness, dizziness, dry mouth, confusion, depression or itching. Physical dependence, meaning you have withdrawal symptoms when a medication is stopped ? this can develop within a few days. KNOW YOUR RESPONSIBILITIES It is important to know exactly how much and how often to take the opioid pain medications you are prescribed. Never take opioids in higher amounts or more often than prescribed. Do not combine opioids with alcohol or other drugs that cause drowsiness, such as benzodiazepines, also known as benzos,including diazepam and alprazolam, muscle relaxants or sleep aids. Never sell or share prescriptionopioids. This is illegal. Store opioids in a secure place and out of reach of others (including children, family, friends and visitors). The last page(s) of this document has been signed and retained as a CHART COPY Signatures Patient Education Materials Chest Pain, Uncertain Cause Medication Leaflets My discharge plan and instructions have been reviewed and explained to me and IALYSSA SUNSHIYNE J understand my current condition and have read and understand these discharge instructions. I have received a written copy of the plan/instructions. If I have questions, I am aware that I should contact my doctor. Patient/Flight Operation Coordinator Signature: Date/Time: Relationship to Patient: Witness Name/Signature: Date/Time: [facility]03-24-2023 Note ORIGINAL EXAMINATION: ONE XRAY VIEW OF THE CHEST 08/23/2022 2:33 am COMPARISON: None. HISTORY: ORDERING SYSTEM PROVIDED HISTORY: Reason for Exam: SOB/cough/fever FINDINGS: A left-sided vagus nerve stimulator is noted. Cardiomediastinal silhouette is within normal limits. No focal consolidation, vascular congestion, large pleural effusion or pneumothorax. The osseous structures appear intact. IMPRESSION: No acute radiographic findings. I have personally reviewed the images of this examination and agree with the resident's findings and interpretation. Interpreted by: Gene Wise MD Preliminary Report By: Andrei Gallegos Electronically signed By Gene Wise MD Dictated Date: 08/23/2022 2:36:48 AM Prelim Date: 08/23/2022 2:38:40 AM Sign Date: 08/23/2022 2:58:34 AM Ordering Provider: [facility]03-24-2023 Note ORIGINAL EXAMINATION: ONE XRAY VIEW OF THE CHEST 08/23/2022 2:33 am COMPARISON: None. HISTORY: ORDERING SYSTEM PROVIDED HISTORY: Reason for Exam: SOB/cough/fever FINDINGS: A left-sided vagus nerve stimulator is noted. Cardiomediastinal silhouette is within normal limits. No focal consolidation, vascular congestion, large pleural effusion or pneumothorax. The osseous structures appear intact. IMPRESSION: No acute radiographic findings. I have personally reviewed the images of this examination and agree with the resident's findings and interpretation. Interpreted by: Gene Wise MD Preliminary Report By: Andrei Gallegos Electronically signed By Gene Wise MD Dictated Date: 08/23/2022 2:36:48 AM Prelim Date: 08/23/2022 2:38:40 AM Sign Date: 08/23/2022 2:58:34 AM Ordering Provider: [facility]03-14-2023 History of Present illness Narrative* Karla Mcguire, [facility] - 08/13/2022 3:00 PM EDT [facility] [facility] Patient Name: Kiki JONES Date of : 2000 Epilepsy Pharmacy Consult - Consult Order Details Authorizing provider: Annette Crowder APRN.SARAH 07/15/2022 [facility] Consult [facility] Communicate consult outcome with ordering provider (cc chart)? Yes Indication for Referral Epilepsy/Seizure Disorders Referral Goal(s) Comprehensive [facility] mgmt Other: Please specify in comments First Appointment Within 2 weeks Referring Provider: Melva Green [address] [facility] [address] EPILEPSY PHARMACY CONSULT 08/13/2022 3:00 PM CHIEF COMPLAINT: Epilepsy HISTORY OF PRESENT ILLNESS Ms. Ware is a 21 year old female seen in [facility] for pharmacy consultation. Age of onset: 8 years CURRENT OUTPATIENT ANTISEIZURE MEDICATIONS (as of the start of the encounter) cloBAZam (ONFI) 10 mg tab tablet Take 2 tablets by mouth twice daily for 180 days. Taking medication as prescribed lacosamide (VIMPAT) 200 mg Take 1 tablet by mouth twice daily for 180 days. Taking medication as prescribed clonazePAM (KLONOPIN) 0.5 mg tablet Take 1 tablet by mouth as needed (for seizures lasting longer than 3 minutes or cluster of seizures) for up to 180 days. Used one dose past week, but has been almost a month since last use levETIRAcetam (KEPPRA) 500 mg tablet Take 3 tablets by mouth twice daily. Taking 3.5 tablets BID zonisamide (ZONEGRAN) 100 mg capsule TAKE 2 CAPSULES BY MOUTH EVERY MORNING AND 3 CAPSULES EVERY EVENING. Taking medication as prescribed Prior Anti-seizure Therapies: Trial Adequacy: Max Daily Dose Achieved: Side Effects: Effectiveness: Comments: Clobazam Lacosamide Levetiracetam Vagal Nerve Stimulation Valproate Zonisamide Current Outpatient Medications Medication Sig FERROUS SULFATE ORAL Take by mouth. cloBAZam (ONFI) 10 mg tab tablet Take 2 tablets by mouth twice daily for 180 days. lacosamide (VIMPAT) 200 mg Take 1 tablet by mouth twice daily for 180 days. clonazePAM (KLONOPIN) 0.5 mg tablet Take 1 tablet by mouth as needed (for seizures lasting longer than 3 minutes or cluster of seizures) for up to 180 days. levETIRAcetam (KEPPRA) 500 mg tablet Take 3 tablets by mouth twice daily. (Patient taking differently: Take 1,000 mg by mouth twice daily. 1750pm in am and 1750 mg in pm) zonisamide (ZONEGRAN) 100 mg capsule TAKE 2 CAPSULES BY MOUTH EVERY MORNING AND 3 CAPSULES EVERY EVENING. Shower Chair with Back once daily. Use as directed folic acid 1 mg tablet Take 2 tablets by mouth twice daily. vit [id number] (PRENATE MINI, FERR ASP GLYCIN,) 18-1-350 mg cap Take 1 Dose by mouth once daily. No current facility-administered medications for this visit. 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 old PAST SURGICAL HISTORY Procedure Laterality Date PAST SURGICAL HISTORY OF VNS implant Social History Tobacco Use Smoking status: Never Smokeless tobacco: Never Tobacco comments: smoking outside per mom Vaping Use Vaping Use: Never used Substance Use Topics Alcohol use: Not Currently Comment: special occasions Drug use: Not Currently Types: Marijuana Seizure Data History of status epilepticus or clusters of seizures: No Does the patient live alone?: No Functional status: independent in activities of daily living MEDICATION ADHERENCE ASSESSMENT: - Patient reports missing 0 doses on a weekly basis. Does report one missed dose in past week. IMPRESSION: - Patient reports improved seizure frequency. Only x1 seizure in past month that she described as not a bad seizure (triggered by missing evening dose of medication and viral illness) - Reports no concerns with medication adverse effects. - Levels from 07/11 are all within normal limits, no updated levels since PLAN: - Monitor levels every 3 weeks during (past due from August 01). Standing orders for 3 ASMs. Educated the importance of obtaining levels during . - Continue current regimen CLB 20 mg BID, LCM 200 mg BID, LEV 1750 mg BID, ZNS 200/300. - Provided education on the importance of compliancy and encouraged utilization of tools that can aid in improving adherence (like alarm on phone). - Provided contact information and isntructed patient to contact me if seizure frequency worsens orpresence of adverse effects prior to next appointment - Future considerations if seizures frequency increases: Increase LEV or LCM FOLLOW-UP: Pharmacy 09/03/22 I spent a total of 20 minutes on the date of the service which included obtaining and/or reviewing separately obtained history and counseling and educating the patient/family/caregiver. Karla Mcguire RPh documented in this encounterThe [facility] Miscellaneous Notes* Telephone Encounter - Nathaniel Mckinney RN - 07/31/2022 4:34 PM EST 3 hour GTT was scheduled for 08/07 * Telephone Encounter - Alivia Trent MD - 07/30/2022 12:11 PM EST If she fasted for 8 hours then she could have taken the test. * Telephone Encounter - Sixto Espitia RN - 07/30/2022 11:57 AM EST New order pending. Please file. Sixto Espitia RN * Telephone Encounter - Modesta Arevalo Pss - 07/30/2022 11:35 AM EST Patient came in today for 3 hour glucose, was checked in for appt and pt stated she had a mountain dew last night. She was informed that it would spike the test and she was to reschedule. Patient wastold to call in to reschedule. Order was unlinked from scheduled appt, however, did not fall back into active requests. Please enter new order and advise patient for scheduling. documented in this encounterThe [facility]03-[facility]23 Miscellaneous Notes* Quick Notes - Maria Eugenia Soria APRN.CNM - 07/31/2022 1:24 PM EST S: Kiki Ware is a 21 year old female who presents at 29.2 weeks gestation as an add on visit for decreased movement. Stated has not felt movement since yesterday. Denies any cramps or contraction, loss of fluid or vaginal bleeding. Denies headache, visual changes, chest pain, shortness of breath, vaginal bleeding, leakage of fluid, or dysuria. O: See flow sheet Gen: No apparent distress Abd: Gravid, non tender FHT- 158 BPM via doppler ASSESSMENT/PLAN: 1. 29 weeks gestation of - ICD9: V22.2, ICD10: Z3A.29 (primary diagnosis) 2. Supervision of high risk in third trimester - ICD9: V23.9, ICD10: O09.93 3. Decreased movements P: 1) Educated on kick counts - PTL precautions reviewed and when to call - Reassurance provided 2) RTO 1 week- scheduled [facility] at [facility] Maria Eugenia Soria APRN.CNM documented in this encounterThe [facility]03-[facility] Instructions* Patient Instructions* Sindy Das MA - 07/31/2022 1:08 PM EST SEQUENTIAL SCREENINGS The [facility] offers sequential screenings for women who are interested in screenings for chromosomal abnormalities and certain defects during a . The sequential screen combinesultrasound and blood tests to determine the risk of chromosomal abnormalities, including Down's Syndrome (Trisomy 21) and Trisomy 18, as well as open neural tube defects including spina bifida. Ultrasound examination is performed between 11 weeks and 13 weeks gestational age. Blood tests are drawn after the ultrasound and again later in the between 15 and 21 weeks gestational age. Please let your physician know if you are interested in this testing. It will require an appointment withour metallurgical lab technician. This is not an ultrasound performed by a physician in our office during a routine visit. SIGNS AND SYMPTOMS OF LABOR 1. Contractions every 10 minutes or more often 2. Clear, pink, or brownish fluid (water) leaking from vagina 3. Feeling that baby is pushing down, pressure 4. Low, dull backache 5. Cramps that feel like a period 6. Cramps with or without diarrhea If you notice any of the above symptoms, contact our office at [phone] and ask to speak with anurse. After hours, you can call doctors registry at [phone] OR call [facility] at [phone] ask to have the doctor operational review sergeant paged. If you consider this an emergency, dial [phone] or go to your nearest emergency department. NEED HELP? Are you dealing with a violent or abusive relationship? Are you a victim of rape or sexual assult? Call [facility] ([place]) 24 hour Crisis Hotline: 796.946.6120 or 435-857-3784. MANUAL Your Guide to a Healthy manual is now on-line. Visit [email or web address] to download your free copy documented in this encounterThe [facility]02-28-[facility]23 History of Past illness Narrative* Problem Noted Date Resolved Date Anemia, antepartum, third trimester 07/30/2022 09/03/2022 Overview: Repeat Hb @32 w fine Vaginal bleeding in , second trimester 04/23/2022 08/27/2022 Last Assessment & Plan: Patient assessed in ER over weekend for an episode of VB that resolved. US today reassuring. Bleeding precautions were reviewed. related nausea, antepartum 02/28/2022 09/03/2022 Overview: 02/28/2022atient is complaining of nausea . Denies any vomiting dietary considerations discussed . Reiterated to mom and patient the importance of calling us if she is unable to keep food or fluids down. TKRN Patient request for diagnostic testing 2 08/27/2022 Overview: 02/28/2022 Patient desires aneuploidy screening. She is given contact information for [facility] to call for insurance coverage information. Declines genetic carrier screening testing as mother says she has had that in the past.Nathaniel Mckinney RN Supervision of high risk , antepartum 0 02/12/2022 09/03/2022 Last Assessment & Plan: NIPS risk reducing for aneuploidy. Anatomic survey at 18-20 weeks. Reviewed recommendations for influenza an COVID vaccination. Continue routine OB care with primary OB and co-management with MFM. Midtrimester counseling provided. Nicotine use disorder, F17.2 07/24/2021 Generalized epilepsy 07/23/2021 09/03/2022 ADD (attention deficit disorder) 12/14/2009 09/03/2022 documented as of this encounter (statuses as of 09/04/2022) [facility] History of Past illness Narrative* Problem Noted Date Resolved Date Anemia, antepartum, third trimester 07/30/2022 09/03/2022 Overview: Repeat Hb @32 w fine Vaginal bleeding in , second trimester 04/23/2022 08/27/2022 Last Assessment & Plan: Patient assessed in ER over weekend for an episode of VB that resolved. US today reassuring. Bleeding precautions were reviewed. related nausea, antepartum 02/28/2022 09/03/2022 Overview: 02/28/2022atient is complaining of nausea . Denies any vomiting dietary considerations discussed . Reiterated to mom and patient the importance of calling us if she is unable to keep food or fluids down. TKRN Patient request for diagnostic testing 2 08/27/2022 Overview: 02/28/2022 Patient desires aneuploidy screening. She is given contact information for [facility] to call for insurance coverage information. Declines genetic carrier screening testing as mother says she has had that in the past.Nathaniel Mckinney RN Supervision of high risk , antepartum 0 02/12/2022 09/03/2022 Last Assessment & Plan: NIPS risk reducing for aneuploidy. Anatomic survey at 18-20 weeks. Reviewed recommendations for influenza an COVID vaccination. Continue routine OB care with primary OB and co-management with MFM. Midtrimester counseling provided. Nicotine use disorder, F17.2 07/24/2021 Generalized epilepsy 07/23/2021 09/03/2022 ADD (attention deficit disorder) 12/14/2009 09/03/2022 documented as of this encounter (statuses as of 09/04/2022) [facility] History of Past illness Narrative* Problem Noted Date Resolved Date Anemia, antepartum, third trimester 07/30/2022 09/03/2022 Overview: Repeat Hb @32 w fine Vaginal bleeding in , second trimester 04/23/2022 08/27/2022 Last Assessment & Plan: Patient assessed in ER over weekend for an episode of VB that resolved. US today reassuring. Bleeding precautions were reviewed. related nausea, antepartum 02/28/2022 09/03/2022 Overview: 02/28/2022atient is complaining of nausea . Denies any vomiting dietary considerations discussed . Reiterated to mom and patient the importance of calling us if she is unable to keep food or fluids down. TKRN Patient request for diagnostic testing 08/27/2022 Overview: 02/28/2022 Patient desires aneuploidy screening. She is given contact information for [facility] to call for insurance coverage information. Declines genetic carrier screening testing as mother says she has had that in the past.Nathaniel Mckinney RN Supervision of high risk , antepartum 0 02/12/2022 09/03/2022 Last Assessment & Plan: NIPS risk reducing for aneuploidy. Anatomic survey at 18-20 weeks. Reviewed recommendations for influenza an COVID vaccination. Continue routine OB care with primary OB and co-management with MFM. Midtrimester counseling provided. Nicotine use disorder, F17.2 07/24/2021 Generalized epilepsy 07/23/2021 09/03/2022 ADD (attention deficit disorder) 12/14/2009 09/03/2022 documented as of this encounter (statuses as of 09/04/2022) [facility] of Past illness Narrative* Problem Noted Date Resolved Date Anemia, antepartum, third trimester 07/30/2022 09/03/2022 Overview: Repeat Hb @32 w fine Vaginal bleeding in , second trimester 04/23/2022 08/27/2022 Last Assessment & Plan: Patient assessed in ER over weekend for an episode of VB that resolved. US today reassuring. Bleeding precautions were reviewed. related nausea, antepartum 02/28/2022 09/03/2022 Overview: 02/28/2022atient is complaining of nausea . Denies any vomiting dietary considerations discussed . Reiterated to mom and patient the importance of calling us if she is unable to keep food or fluids down. TKRN Patient request for diagnostic testing 2 08/27/2022 Overview: 02/28/2022 Patient desires aneuploidy screening. She is given contact information for [facility] to call for insurance coverage information. Declines genetic carrier screening testing as mother says she has had that in the past.Nathaniel Mckinney RN Supervision of high risk , antepartum 0 02/12/2022 09/03/2022 Last Assessment & Plan: NIPS risk reducing for aneuploidy. Anatomic survey at 18-20 weeks. Reviewed recommendations for influenza an COVID vaccination. Continue routine OB care with primary OB and co-management with MFM. Midtrimester counseling provided. Nicotine use disorder, F17.2 07/24/2021 Generalized epilepsy 07/23/2021 09/03/2022 ADD (attention deficit disorder) 12/14/2009 09/03/2022 documented as of this encounter (statuses as of 09/04/2022) [facility] of Past illness Narrative* Problem Noted Date Resolved Date Anemia, antepartum, third trimester 07/30/2022 09/03/2022 Overview: Repeat Hb @32 w fine Vaginal bleeding in , second trimester 04/23/2022 08/27/2022 Last Assessment & Plan: Patient assessed in ER over weekend for an episode of VB that resolved. US today reassuring. Bleeding precautions were reviewed. related nausea, antepartum 02/28/2022 09/03/2022 Overview: 02/28/2022atient is complaining of nausea . Denies any vomiting dietary considerations discussed . Reiterated to mom and patient the importance of calling us if she is unable to keep food or fluids down. TKRN Patient request for diagnostic testing 08/27/2022 Overview: 02/28/2022 Patient desires aneuploidy screening. She is given contact information for [facility] to call for insurance coverage information. Declines genetic carrier screening testing as mother says she has had that in the past.Nathaniel Mckinney RN Supervision of high risk , antepartum 0 02/12/2022 09/03/2022 Last Assessment & Plan: NIPS risk reducing for aneuploidy. Anatomic survey at 18-20 weeks. Reviewed recommendations for influenza an COVID vaccination. Continue routine OB care with primary OB and co-management with MFM. Midtrimester counseling provided. Nicotine use disorder, F17.2 07/24/2021 Generalized epilepsy 07/23/2021 09/03/2022 ADD (attention deficit disorder) 12/14/2009 09/03/2022 documented as of this encounter (statuses as of 09/05/2022) [facility] of Past illness Narrative* Problem Noted Date Resolved Date Anemia, antepartum, third trimester 07/30/2022 09/03/2022 Overview: Repeat Hb @32 w fine Vaginal bleeding in , second trimester 04/23/2022 08/27/2022 Last Assessment & Plan: Patient assessed in ER over weekend for an episode of VB that resolved. US today reassuring. Bleeding precautions were reviewed. related nausea, antepartum 02/28/2022 09/03/2022 Overview: 02/28/2022atient is complaining of nausea . Denies any vomiting dietary considerations discussed . Reiterated to mom and patient the importance of calling us if she is unable to keep food or fluids down. TKRN Patient request for diagnostic testing 08/27/2022 Overview: 02/28/2022 Patient desires aneuploidy screening. She is given contact information for [facility] to call for insurance coverage information. Declines genetic carrier screening testing as mother says she has had that in the past.Nathaniel Mckinney RN Supervision of high risk , antepartum 0 02/12/2022 09/03/2022 Last Assessment & Plan: NIPS risk reducing for aneuploidy. Anatomic survey at 18-20 weeks. Reviewed recommendations for influenza an COVID vaccination. Continue routine OB care with primary OB and co-management with MFM. Midtrimester counseling provided. Nicotine use disorder, F17.2 07/24/2021 Generalized epilepsy 07/23/2021 09/03/2022 ADD (attention deficit disorder) 12/14/2009 09/03/2022 documented as of this encounter (statuses as of 09/06/2022) [facility] of Past illness Narrative* Problem Noted Date Resolved Date Anemia, antepartum, third trimester 07/30/2022 09/03/2022 Overview: Repeat Hb @32 w fine Vaginal bleeding in , second trimester 04/23/2022 08/27/2022 Last Assessment & Plan: Patient assessed in ER over weekend for an episode of VB that resolved. US today reassuring. Bleeding precautions were reviewed. related nausea, antepartum 02/28/2022 09/03/2022 Overview: 02/28/2022atient is complaining of nausea . Denies any vomiting dietary considerations discussed . Reiterated to mom and patient the importance of calling us if she is unable to keep food or fluids down. TKRN Patient request for diagnostic testing 2 08/27/2022 Overview: 02/28/2022 Patient desires aneuploidy screening. She is given contact information for [facility] to call for insurance coverage information. Declines genetic carrier screening testing as mother says she has had that in the past.Nathaniel Mckinney RN Supervision of high risk , antepartum 0 02/12/2022 09/03/2022 Last Assessment & Plan: NIPS risk reducing for aneuploidy. Anatomic survey at 18-20 weeks. Reviewed recommendations for influenza an COVID vaccination. Continue routine OB care with primary OB and co-management with MFM. Midtrimester counseling provided. Nicotine use disorder, F17.2 07/24/2021 Generalized epilepsy 07/23/2021 09/03/2022 ADD (attention deficit disorder) 12/14/2009 09/03/2022 documented as of this encounter (statuses as of 09/09/2022) [facility] of Past illness Narrative* Problem Noted Date Resolved Date Anemia, antepartum, third trimester 07/30/2022 09/03/2022 Overview: Repeat Hb @32 w fine Vaginal bleeding in , second trimester 04/23/2022 08/27/2022 Last Assessment & Plan: Patient assessed in ER over weekend for an episode of VB that resolved. US today reassuring. Bleeding precautions were reviewed. related nausea, antepartum 02/28/2022 09/03/2022 Overview: 02/28/2022atient is complaining of nausea . Denies any vomiting dietary considerations discussed . Reiterated to mom and patient the importance of calling us if she is unable to keep food or fluids down. TKRN Patient request for diagnostic testing 2 08/27/2022 Overview: 02/28/2022 Patient desires aneuploidy screening. She is given contact information for [facility] to call for insurance coverage information. Declines genetic carrier screening testing as mother says she has had that in the past.Nathaniel Mckinney RN Supervision of high risk , antepartum 0 02/12/2022 09/03/2022 Last Assessment & Plan: NIPS risk reducing for aneuploidy. Anatomic survey at 18-20 weeks. Reviewed recommendations for influenza an COVID vaccination. Continue routine OB care with primary OB and co-management with MFM. Midtrimester counseling provided. Nicotine use disorder, F17.2 07/24/2021 Generalized epilepsy 07/23/2021 09/03/2022 ADD (attention deficit disorder) 12/14/2009 09/03/2022 documented as of this encounter (statuses as of 09/13/2022) [facility] of Past illness Narrative* Problem Noted Date Resolved Date Anemia, antepartum, third trimester 07/30/2022 09/03/2022 Overview: Repeat Hb @32 w fine Vaginal bleeding in , second trimester 04/23/2022 08/27/2022 Last Assessment & Plan: Patient assessed in ER over weekend for an episode of VB that resolved. US today reassuring. Bleeding precautions were reviewed. related nausea, antepartum 02/28/2022 09/03/2022 Overview: 02/28/2022atient is complaining of nausea . Denies any vomiting dietary considerations discussed . Reiterated to mom and patient the importance of calling us if she is unable to keep food or fluids down. TKRN Patient request for diagnostic testing 2 08/27/2022 Overview: 02/28/2022 Patient desires aneuploidy screening. She is given contact information for [facility] to call for insurance coverage information. Declines genetic carrier screening testing as mother says she has had that in the past.Nathaniel Mckinney RN Supervision of high risk , antepartum 0 02/12/2022 09/03/2022 Last Assessment & Plan: NIPS risk reducing for aneuploidy. Anatomic survey at 18-20 weeks. Reviewed recommendations for influenza an COVID vaccination. Continue routine OB care with primary OB and co-management with MFM. Midtrimester counseling provided. Nicotine use disorder, F17.2 07/24/2021 Generalized epilepsy 07/23/2021 09/03/2022 ADD (attention deficit disorder) 12/14/2009 09/03/2022 documented as of this encounter (statuses as of 09/14/2022) [facility] of Past illness Narrative* Problem Noted Date Resolved Date Anemia, antepartum, third trimester 07/30/2022 09/03/2022 Overview: Repeat Hb @32 w fine Vaginal bleeding in , second trimester 04/23/2022 08/27/2022 Last Assessment & Plan: Patient assessed in ER over weekend for an episode of VB that resolved. US today reassuring. Bleeding precautions were reviewed. related nausea, antepartum 02/28/2022 09/03/2022 Overview: 02/28/2022atient is complaining of nausea . Denies any vomiting dietary considerations discussed . Reiterated to mom and patient the importance of calling us if she is unable to keep food or fluids down. TKRN Patient request for diagnostic testing 2 08/27/2022 Overview: 02/28/2022 Patient desires aneuploidy screening. She is given contact information for [facility] to call for insurance coverage information. Declines genetic carrier screening testing as mother says she has had that in the past.Nathaniel Mckinney RN Supervision of high risk , antepartum 0 02/12/2022 09/03/2022 Last Assessment & Plan: NIPS risk reducing for aneuploidy. Anatomic survey at 18-20 weeks. Reviewed recommendations for influenza an COVID vaccination. Continue routine OB care with primary OB and co-management with MFM. Midtrimester counseling provided. Nicotine use disorder, F17.2 07/24/2021 Generalized epilepsy 07/23/2021 09/03/2022 ADD (attention deficit disorder) 12/14/2009 09/03/2022 documented as of this encounter (statuses as of 09/15/2022) [facility] of Past illness Narrative* Problem Noted Date Resolved Date Anemia, antepartum, third trimester 07/30/2022 09/03/2022 Overview: Repeat Hb @32 w fine Vaginal bleeding in , second trimester 04/23/2022 08/27/2022 Last Assessment & Plan: Patient assessed in ER over weekend for an episode of VB that resolved. US today reassuring. Bleeding precautions were reviewed. related nausea, antepartum 02/28/2022 09/03/2022 Overview: 02/28/2022atient is complaining of nausea . Denies any vomiting dietary considerations discussed . Reiterated to mom and patient the importance of calling us if she is unable to keep food or fluids down. TKRN Patient request for diagnostic testing 08/27/2022 Overview: 02/28/2022 Patient desires aneuploidy screening. She is given contact information for [facility] to call for insurance coverage information. Declines genetic carrier screening testing as mother says she has had that in the past.Nathaniel Mckinney RN Supervision of high risk , antepartum 0 02/12/2022 09/03/2022 Last Assessment & Plan: NIPS risk reducing for aneuploidy. Anatomic survey at 18-20 weeks. Reviewed recommendations for influenza an COVID vaccination. Continue routine OB care with primary OB and co-management with MFM. Midtrimester counseling provided. Nicotine use disorder, F17.2 07/24/2021 Generalized epilepsy 07/23/2021 09/03/2022 ADD (attention deficit disorder) 12/14/2009 09/03/2022 documented as of this encounter (statuses as of 09/19/2022) [facility] of Past illness Narrative* Problem Noted Date Resolved Date Anemia, antepartum, third trimester 07/30/2022 09/03/2022 Overview: Repeat Hb @32 w fine Vaginal bleeding in , second trimester 04/23/2022 08/27/2022 Last Assessment & Plan: Patient assessed in ER over weekend for an episode of VB that resolved. US today reassuring. Bleeding precautions were reviewed. related nausea, antepartum 02/28/2022 09/03/2022 Overview: 02/28/2022atient is complaining of nausea . Denies any vomiting dietary considerations discussed . Reiterated to mom and patient the importance of calling us if she is unable to keep food or fluids down. TKRN Patient request for diagnostic testing 2 08/27/2022 Overview: 02/28/2022 Patient desires aneuploidy screening. She is given contact information for [facility] [employer] to call for insurance coverage information. Declines genetic carrier screening testing as mother says she has had that in the past.Nathaniel Mckinney RN Supervision of high risk , antepartum 0 02/12/2022 09/03/2022 Last Assessment & Plan: NIPS risk reducing for aneuploidy. Anatomic survey at 18-20 weeks. Reviewed recommendations for influenza an COVID vaccination. Continue routine OB care with primary OB and co-management with MFM. Midtrimester counseling provided. Nicotine use disorder, F17.2 07/24/2021 Generalized epilepsy 07/23/2021 09/03/2022 ADD (attention deficit disorder) 12/14/2009 09/03/2022 documented as of this encounter (statuses as of 09/20/2022) [facility]02-28-20[facility] History of Past illness Narrative* Problem Noted Date Resolved Date Anemia, antepartum, third trimester 07/30/2022 09/03/2022 Overview: Repeat Hb @32 w fine Vaginal bleeding in , second trimester 04/23/2022 08/27/2022 Last Assessment & Plan: Patient assessed in ER over weekend for an episode of VB that resolved. US today reassuring. Bleeding precautions were reviewed. related nausea, antepartum 02/28/2022 09/03/2022 Overview: 02/28/2022atient is complaining of nausea . Denies any vomiting dietary considerations discussed . Reiterated to mom and patient the importance of calling us if she is unable to keep food or fluids down. TKRN Patient request for diagnostic testing 2 08/27/2022 Overview: 02/28/2022 Patient desires aneuploidy screening. She is given contact information for [facility] [employer] to call for insurance coverage information. Declines genetic carrier screening testing as mother says she has had that in the past.Nathaniel Mckinney RN Supervision of high risk , antepartum 0 02/12/2022 09/03/2022 Last Assessment & Plan: NIPS risk reducing for aneuploidy. Anatomic survey at 18-20 weeks. Reviewed recommendations for influenza an COVID vaccination. Continue routine OB care with primary OB and co-management with MFM. Midtrimester counseling provided. Nicotine use disorder, F17.2 07/24/2021 Generalized epilepsy 07/23/2021 09/03/2022 ADD (attention deficit disorder) 12/14/2009 09/03/2022 documented as of this encounter (statuses as of 09/20/2022) [facility] History of Past illness Narrative* Problem Noted Date Resolved Date Anemia, antepartum, third trimester 07/30/2022 09/03/2022 Overview: Repeat Hb @32 w fine Vaginal bleeding in , second trimester 04/23/2022 08/27/2022 Last Assessment & Plan: Patient assessed in ER over weekend for an episode of VB that resolved. US today reassuring. Bleeding precautions were reviewed. related nausea, antepartum 02/28/2022 09/03/2022 Overview: 02/28/2022atient is complaining of nausea . Denies any vomiting dietary considerations discussed . Reiterated to mom and patient the importance of calling us if she is unable to keep food or fluids down. TKRN Patient request for diagnostic testing 2 08/27/2022 Overview: 02/28/2022 Patient desires aneuploidy screening. She is given contact information for [facility] to call for insurance coverage information. Declines genetic carrier screening testing as mother says she has had that in the past.Nathaniel Mckinney RN Supervision of high risk , antepartum 0 02/12/2022 09/03/2022 Last Assessment & Plan: NIPS risk reducing for aneuploidy. Anatomic survey at 18-20 weeks. Reviewed recommendations for influenza an COVID vaccination. Continue routine OB care with primary OB and co-management with MFM. Midtrimester counseling provided. Nicotine use disorder, F17.2 07/24/2021 Generalized epilepsy 07/23/2021 09/03/2022 ADD (attention deficit disorder) 12/14/2009 09/03/2022 documented as of this encounter (statuses as of 09/26/2022) [facility]-23-[facility] Miscellaneous Notes* Telephone Encounter - Miranda Tadeo RN - 07/25/2022 3:48 PM EST Patient notified. Voiced understanding. Instructed to fast for the 3 hr glucose test. Lab appointment scheduled. Miranda Tadeo RN * Telephone Encounter - Yudith Cline LPN - 07/25/2022 3:38 PM EST Message left asking pt to call for results and instructions. Yudith Cline LPN * Telephone Encounter - Rachel Banks APRN.SARAH - 07/25/2022 3:30 PM EST Patient will need a 3-hour glucose test done. She needs to also start a iron supplement once daily and repeat the CBC in 3 weeks. Rachel Banks APRN.CNP documented in this encounterThe [facility] Miscellaneous Notes* Quick Notes - Alivia Trent MD - 07/24/2022 2:47 PM EST DM-Pt doing well. Denies vaginal Bleeding, Leaking fluid, or regular Contractions. Pt reports good movement. Pt would like to deliver at [facility] due to h/o seizures she states she would feel more comfortable having specialist available. Physical Exam: Gen: female in no apparent distress Abd: soft, Gravid. Non tender to palpation. See flow sheet A/P: @ 28.2 weeks 1) continue meds per neurology 2) Pt would like to deliver at [facility] due to seizure disorder she states she would feel morecomfortable. 3) reviewed IOL 39 weeks 4) Growth us 32 weeks ordered 5) will schedule 30 week appt and 36+ week visits at [facility]. 6) urine culture SOPHIA today 7) no further seizures s/p treatment UTI. 8) requesting Nexplanon at Delivery- LARC form signed. Alivia Aviles MD documented in this encounterThe [facility] History of Present illness Narrative* Evi Keith Jacob - 07/24/2022 2:27 PM EST Patient identified by name and date of . [place] Pimentel Alyssa presents today for a vaccination of Tdap. Patient denies an allergy to latex: yes Patient denies a severe (life-threatening) allergy to a previous dose of Tdap, DTP, DTaP, DT or Td vaccine. Yes Patient denies history of epilepsy or neurological problems: No Patient is afebrile and denies being moderately or severely ill: Yes Patient denies history of Guillain-[place] Syndrome (a severe paralytic illness): Yes Tdap Adacel injection was given without incident. See immunizations for details of immunizations administered today. VIS sheet provided: Yes Provider Miley was present in office at time of injection. documented in this encounterThe [facility] Instructions* Patient Instructions* Evi Parker Ma - 07/24/2022 2:14 PM EST SEQUENTIAL SCREENINGS The [facility] offers sequential screenings for women who are interested in screenings for chromosomal abnormalities and certain defects during a . The sequential screen combinesultrasound and blood tests to determine the risk of chromosomal abnormalities, including Down's Syndrome (Trisomy 21) and Trisomy 18, as well as open neural tube defects including spina bifida. Ultrasound examination is performed between 11 weeks and 13 weeks gestational age. Blood tests are drawn after the ultrasound and again later in the between 15 and 21 weeks gestational age. Please let your physician know if you are interested in this testing. It will require an appointment withour metallurgical lab technician. This is not an ultrasound performed by a physician in our office during a routine visit. SIGNS AND SYMPTOMS OF LABOR 1. Contractions every 10 minutes or more often 2. Clear, pink, or brownish fluid (water) leaking from vagina 3. Feeling that baby is pushing down, pressure 4. Low, dull backache 5. Cramps that feel like a period 6. Cramps with or without diarrhea If you notice any of the above symptoms, contact our office at [phone] and ask to speak with anurse. After hours, you can call doctors registry at [phone] OR call [facility] at [phone] ask to have the doctor operational review sergeant paged. If you consider this an emergency, dial or go to your nearest emergency department. NEED HELP? Are you dealing with a violent or abusive relationship? Are you a victim of rape or sexual assult? Call [facility] ([facility] 24 hour Crisis Hotline: 949.871.5585 or 517-958-1321. MANUAL Your Guide to a Healthy manual is now on-line. Visit [email or web address] to download your free copy documented in this encounterThe [facility] History of Present illness Narrative* Karla Mcguire, [facility] - 07/23/2022 3:00 PM EST [facility] [place] [facility] Patient Name: Kiki JONES Date of : 2000 Epilepsy Pharmacy Consult - Consult Order Details Authorizing provider: Annette Crowder APRN.SARAH 07/15/2022 Epilepsy Pharmacy Consult Order - Location [facility] Communicate consult outcome with ordering provider (cc chart)? Yes Indication for Referral Epilepsy/Seizure Disorders Referral Goal(s) Comprehensive ASM mgmt Other: Please specify in comments First Appointment Within 2 weeks Referring Provider: Melva Green [address] [facility] [id number] EPILEPSY PHARMACY CONSULT 07/23/2022 3:00 PM CHIEF COMPLAINT: Epilepsy HISTORY OF PRESENT ILLNESS Ms. Ware is a 21 year old female seen in [facility] for pharmacy consultation. Age of onset: 8 years CURRENT OUTPATIENT ANTISEIZURE MEDICATIONS (as of the start of the encounter) cloBAZam (ONFI) 10 mg tab tablet Take 2 tablets by mouth twice daily for 180 days. Taking medication as prescribed lacosamide (VIMPAT) 200 mg Take 1 tablet by mouth twice daily for 180 days. Taking medication as prescribed clonazePAM (KLONOPIN) 0.5 mg tablet Take 1 tablet by mouth as needed (for seizures lasting longer than 3 minutes or cluster of seizures) for up to 180 days. Thinks she took rescue one time last week levETIRAcetam (KEPPRA) 500 mg tablet Take 3 tablets by mouth twice daily. Taking 3.5 tablets in the morning and 3.5 tablets at night zonisamide (ZONEGRAN) 100 mg capsule TAKE 2 CAPSULES BY MOUTH EVERY MORNING AND 3 CAPSULES EVERY EVENING. Taking medication as prescribed Prior Anti-seizure Therapies: Trial Adequacy: Max Daily Dose Achieved: Side Effects: Effectiveness: Comments: Clobazam Lacosamide Levetiracetam Vagal Nerve Stimulation Valproate Zonisamide Current Outpatient Medications Medication Sig cloBAZam (ONFI) 10 mg tab tablet Take 2 tablets by mouth twice daily for 180 days. lacosamide (VIMPAT) 200 mg Take 1 tablet by mouth twice daily for 180 days. clonazePAM (KLONOPIN) 0.5 mg tablet Take 1 tablet by mouth as needed (for seizures lasting longer than 3 minutes or cluster of seizures) for up to 180 days. levETIRAcetam (KEPPRA) 500 mg tablet Take 3 tablets by mouth twice daily. zonisamide (ZONEGRAN) 100 mg capsule TAKE 2 CAPSULES BY MOUTH EVERY MORNING AND 3 CAPSULES EVERY EVENING. Shower Chair with Back once daily. Use as directed folic acid 1 mg tablet Take 2 tablets by mouth twice daily. vit 15-sumn-nfely-dha (PRENATE MINI, FERR ASP GLYCIN,) 18-1-350 mg cap Take 1 Dose by mouth once daily. No current facility-administered medications for this visit. 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 PAST SURGICAL HISTORY Procedure Laterality Date PAST SURGICAL HISTORY OF VNS implant Social History Tobacco Use Smoking status: Never Smokeless tobacco: Never Tobacco comments: smoking outside per mom Vaping Use Vaping Use: Never used Substance Use Topics Alcohol use: Not Currently Comment: special occasions Drug use: Not Currently Types: Marijuana Seizure Data History of status epilepticus or clusters of seizures: No Does the patient live alone?: No Functional status: independent in activities of daily living MEDICATION ADHERENCE ASSESSMENT: - Patient reports missing 0 doses on a weekly basis. Utilizes pill box LEVELS: 07/11/2022 - LCM 8.9 - ZNS 23.5 - LEV 33 IMPRESSION: - Patient unable to report exact seizure frequency, but thinks it has improved since increase in LEV following hospital discharge. Patient's mother usually is able to speak more to rescue medication use and seizure frequency, and she was unable to join visit today. - Recent increase in LEV by 500 mg/day following hospital discharge 07/12. - Reports no concerns with medication adverse effects. - Levels from 07/11 are all within normal limits. PLAN: - Monitor levels every 3 weeks during (next due August 01). Ordered standing orders for 3ASMs. - Continue current regimen CLB 20 mg BID, LCM 200 mg BID, LEV 1750 mg BID, ZNS 200/300. - Provided contact information and isntructed patient to contact me if seizure frequency worsens orpresence of adverse effects prior to next appointment - Future considerations if seizures frequency increases: Increase LEV or LCM FOLLOW-UP: 08/06/2022 with Pharmacy I spent a total of 20 minutes on the date of the service which included obtaining and/or reviewing separately obtained history and counseling and educating the patient/family/caregiver. Karla Mcguire RPh documented in this encounterThe [facility]02[facility]23 Miscellaneous Notes* Telephone Encounter - Sobeida Kyle APRN.CNP - 07/18/2022 9:19 AM EST The following approved medication requests have been transmitted electronically. Requested Prescriptions Signed Prescriptions Disp Refills cloBAZam (ONFI) 10 mg tab tablet 360 tablet 1 Sig: Take 2 tablets by mouth twice daily for 180 days. Authorizing Provider: SOBEIDA KYLE lacosamide (VIMPAT) 200 mg 180 tablet 1 Sig: Take 1 tablet by mouth twice daily for 180 days. Authorizing Provider: SOBEIDA KYLE APRN.CNP * Telephone Encounter - Nasra BRIZUELA - 07/17/2022 2:42 PM EST Prescription Refill: Requested by: parent Please Call in Caller Contact Number: [phone] (home) c Pharmacy Name: [facility] Pharmacy Number: [id number] Generic/ brand: generic 30 or 90 day supply requested: 90 Last appointment: 07/12/22 Next Appointment: none Patient of Dr. rothman documented in this encounterThe [facility] Miscellaneous Notes* Quick Notes - Sheila Hernandez MD - 07/16/2022 1:52 PM EST RR- VB No. LOF No. CTXS No. Movement: present. Other c/o: Had a seizure last week, was taken to [facility]. Medication list reviewed. Physical Exam See Flow Sheet Abd: soft, nontender, gravid Ext: edema: Trace A/P 27w1d Estimated Date of Delivery: 10/14/22 repeat urine culture today,w as on kelfex for UTI and that was making her have small seizures per her and her mom Dorene recently adjusted. f/u in 1-2 weeks for 28 week labs d/w her plan for delivery, - no indication for c/s at this time but would be option if she wants this electively LARC reviewed, plans nexplanon but not until PP visit. Sheila Hernandez M.D. documented in this encounterThe [facility] Instructions* Patient Instructions* Darcie Cassia Jacob - 07/16/2022 1:23 PM EST SEQUENTIAL SCREENINGS The [facility] offers sequential screenings for women who are interested in screenings for chromosomal abnormalities and certain defects during a . The sequential screen combinesultrasound and blood tests to determine the risk of chromosomal abnormalities, including Down's Syndrome (Trisomy 21) and Trisomy 18, as well as open neural tube defects including spina bifida. Ultrasound examination is performed between 11 weeks and 13 weeks gestational age. Blood tests are drawn after the ultrasound and again later in the between 15 and 21 weeks gestational age. Please let your physician know if you are interested in this testing. It will require an appointment withour metallurgical lab technician. This is not an ultrasound performed by a physician in our office during a routine visit. SIGNS AND SYMPTOMS OF LABOR 1. Contractions every 10 minutes or more often 2. Clear, pink, or brownish fluid (water) leaking from vagina 3. Feeling that baby is pushing down, pressure 4. Low, dull backache 5. Cramps that feel like a period 6. Cramps with or without diarrhea If you notice any of the above symptoms, contact our office at [phone] and ask to speak with anurse. After hours, you can call doctors registry at [phone] OR call [facility] at [phone] ask to have the doctor operational review sergeant paged. If you consider this an emergency, dial 91- or go to your nearest emergency department. NEED HELP? Are you dealing with a violent or abusive relationship? Are you a victim of rape or sexual assult? Call [facility] ([place]) 24 hour Crisis Hotline: 189.414.6280 or 028-670-3684. MANUAL Your Guide to a Healthy manual is now on-line. Visit [email or web address]/HealthyPregnancyGuide to download your free copy documented in this encounterThe [facility]23 Note. MICRO - Microbiology PROCEDURE: Urine Culture [*1] SOURCE: Urine BODY SITE: COLLECTED DATE/TIME: 07/11/2022 07:09 EST RECEIVED DATE/TIME: 07/11/2022 07:32 EST START DATE/TIME: 07/11/2022 07:32 EST FREE TEXT SOURCE: FINAL REPORTS Final Report [] Verified Date/Time/Personnel: 07/12/2022 14:27 EST 10,000 - 50,000 cfu/ml Mixed growth consistent with normal urogenital sharlene. Performing Locations *1: This test was performed at: [address], [facility] , [facility] ([place])07-12-2022 Maternal and medicine Consult note MATERNAL MEDICINE REVIEW Consult Referral from: Maternal- [facility] . [facility] Admission: She is 31 years of age 1 with a SUNG of 10/14/2022 by early ultrasound. She is presently 26 weeks and 3 days. She is admitted on 07/11/2022 as a transfer from [facility] where she was seen last night with history of having had a seizure that was witnessed by the father of the baby. She apparently gets seizures often and is under care of [facility] and on multiple medications. She did not miss any medications. Apparently she lost consciousness and apparently she fell and her partner has concerns that she might have hurt her head as she fell backwards. Her physician in [facility] is Dr. Green. She started on magnesium sulfate until eclampsia has been definitively excluded. Presently: Upon admission her blood pressures were normal. There is no evidence of placental abruption. Preeclampsia labs were ordered and returned normal. Given the foregoing reassurance against eclampsia, magnesium sulfate was appropriately discontinued. Inpatient neurology consultation has been sought. Her current status was reviewed with the patient. Questions were encouraged and answered. Stable and without any secondary complications-thus ongoing expectant management is appropriate. She denies any history of headaches, vision changes, right upper quadrant pain, contractions, vaginal bleeding, leakage of fluid, and states the activity is plentiful. She additionally has no historyof chills or fevers or any arthralgias. She generally feels well. See assessments for additional details Heart Rate Strip: Review of the strip- It reveals it to have normal rate and baseline variability with occasional reactivity and absence of decelerations. No notable uterine activity. Maternal Vitals: Vitals Signs(Last 24 hrs)__Last Charted Minimum Maximum Temp36.4(JUL 12:)36.4(JUL 12:)36.5(JUL 11:30) Heart RateH 111(JUL 12:)94(JUL 12:35)H 111(JUL 12:) Resp Rate18(JUL 12:)16(JUL 11 23:30)18(JUL 12:35) EBK724(JUL 12:)103(JUL 12:35)116(JUL 11:30) DBPC 49(JUL 12:)C 49(JUL 12:)67(JUL 11:30) Laboratory Assays: 36hr Labs 07/11 0709 U Evngfgd27.8 U Mkbwwmabin86.7 U Ratio Prot/Creat0.2 Creatinine Lvl (s)0.54 Albumin Level2.6L Alk Bxgu758 Bili Total0.20 BUN7.0L Calcium Lvl8.2L Vyrpkvrc604 GK101G Glucose Level91 ZTO787 Potassium Level3.9 Sodium Yfswt616 Total Protein5.8 BUN/Creatinine Ratio13.0 Globulin3.2 A/G Ratio0.8L AST/SGOT14 ALT/SGPT12 Electrolyte Hspndpt14.0 GFR Non->60 GFR >60 Hct32.3L Hgb10.7L MCH28.4 MCHC33.2 MCV85.5 MPV8.8 Ujgbuxoi166 RBC3.78L RDW13.9 WBC10.7 DISCHARGE PLANNING SUNG: October 14, 2022 Gestational Age: 26 weeks 4 days Medications: She is on vitamins. She is additionally on: Keppra 1500 mg twice daily increased [id number] mg BID, zonisamide 200 mg in the morning and 300 mg in the evening, Vimpat 200 mg twicedaily. She has Klonopin 0.5 mg immediately disintegrating to be used as needed be. She is to only use it if the seizure lasts more than 2 minutes. Seizure Disorder: She has had a chronic seizure disorder that has been problematic and she is seizures often and under care of [facility] Dr. Green. Medications as listed above she has an appointment to see him tomorrow. She has had a vagal nerve stimulator in the past but is not on it and controlled just by medications. Patient is s/p inpatient hospitalist neurologist consultation sampson focus presently will be to exclude any concern for concussion to the head from the fall. It does not appear she had an eclamptic seizure. The goal is to monitor till 8 AM tomorrow and if neurologically stable to be discharged and her partner will drive her to [facility] for her neurology appointment. Presently being monitored for possible concussion and neurology exam is unremarkable per neurology consultation. UPDATE 07/12/2022: She had telehealth visit with her neurologist in [facility] today and they agree with the increase of dosage of Keppra and they will follow her up. She has an appointment to see her obstetricians with [facility] next week. There is no concern for any concussion. There is no concern for any placental abruption at this point. Assessments: Ultrasound 07/11/2022 revealed EFW 874 g at 43% and AC at 23% without any anomalies. Obstetrically there is no concern for abruption. Comorbidities: BMI BMI 33 Past Obstetric History: Nulliparous Care: She is not COVID vaccinated. labs are pending from most AUTOMOTIVE SERVICE TECHNICIAN comorbidities I have seen and evaluated the patient. I have obtained the garcia portion of the history and physical examination as stated above. I have discussed the patient with the resident. I have reviewed the resident's documentation and agree with it. The medical decision making was done together with the resident and is documented in resident note. Inpatient Care: Floor time of 80 minutes Loni Gurrola MD. Maternal Medicine Digitally Signed by NARA GURROLA MD on 07/12/2022 04:27 PM [id number] Discharge instructions Patient Education 07/12/2022 12:18:58 Preventing Defects With Folic Acid Preventing Defects with Folic Acid What is folic acid? Folic acid is a vitamin that is used by the body to create new cells and keep the blood healthy. Everyone needs folic acid to stay healthy. It is especially important if you are . Folic acid is artificial (synthetic). The vitamin in its natural form is called folate. Some foods are natural sources of folate, and other foods have folic acid added to them (fortified foods). You can also buy folic acid supplements or vitamins that contain folic acid. Why is folic acid important during ? Folic acid helps reduce your baby's risk of serious defects, especially: Spina bifida. Spina bifida occurs when a baby's spinal column does not develop completely. This cancause serious, long-term (chronic) disabilities. Anencephaly. This is a defect that causes your baby to be missing parts of the brain, scalp, and skull when he or she is born. Most babies born with anencephaly only live for a short amount of time. Spina bifida and anencephaly are commonly associated with a lack of folic acid during . How much folic acid do I need? If you are or planning to become , your health care provider may prescribe vitamins that contain the right amount of folic acid that you need. If you plan to become , you should take at least 400 mcg (micrograms) of folic acid daily. defects usually occur in the earliest stages of , often before you know you are . Taking folic acid when you start trying to become can help prevent defects. While you are , you need at least 600 mcg of folic acid each day. What nutrition changes can be made? To increase your intake of folate and folic acid, you may: Eat more foods that are fortified with folic acid. Check food labels to see whether a food containsfolic acid. Foods that are commonly fortified with folic acid include: ?Cereals. ?Pastas. ?Flours. ?White rice. ?Breads. Eat more foods that are natural sources of folate, such as: ?Legumes, including lentils, peas, and beans. ?Nuts. ?Vegetables, especially dark green leafy vegetables, such as spinach and mustard greens. ?Sharp fruits and juices. Your health care provider may still recommend that you take a supplement to make sure that you get enough to reduce the risk of defects. Where to find support Talk with your health care provider or your pharmacist to find a folic acid supplement that is right for you. Your health care provider may recommend that you see a affiliate marketing specialist (veneer joiner). A veneer joiner can help you make healthy food choices and get more folate from your diet. Nutrition education programs may be available through your community health department. Where to find more information Visit the following websites to learn more about the importance of folic acid. Centers for Disease Control and Prevention: www.cdc.gov/ncbddd/folicacid/about.html The Office on Women's Health: womenshealth.gov/publications/our-publications/fact-sheet/folic-acid.html National Institutes of Health: ods.od.nih.gov/factsheets/Folate-Consumer The March of Dimes: www.marchofdimes.org//folic-acid.aspx Summary It is important to start taking folic acid when you are planning to become , because many defects can happen before you know that you are . You can get more folate and folic acid from your diet. Look for certain foods that are fortified with folic acid. Your health care provider may recommend that you take a supplement to get enough folic acid. This information is not intended to replace advice given to you by your health care provider. Make sure you discuss any questions you have with your health care provider. Document Released: 06/19/2016 Document Revised: 05/01/2018 Document Reviewed: 06/19/2016 [employer] Patient Education 2020 [employer]. 07/12/2022 12:18:48 Warning Signs During Warning Signs During A lasts about 40 weeks, starting from the first day of your last period until the baby isborn. is divided into three phases called trimesters. The first trimester refers to week 1 through week 13 of . The second trimester is the start of week 14 through the end of week 27. The third trimester is the start of week 28 until you deliver your baby. During each trimester of , certain signs and symptoms may indicate a problem. Talk with your health care provider about your current health and any medical conditions you have. Make sure youknow the symptoms that you should watch for and report. How does this affect me? Warning signs in the first trimester While some changes during the first trimester may be uncomfortable, most do not represent a seriousproblem. Let your health care provider know if you have any of the following warning signs in the first trimester: You cannot eat or drink without vomiting, and this lasts for longer than a day. You have vaginal bleeding or spotting along with menstrual-like cramping. You have diarrhea for longer than a day. You have a fever or other signs of infection, such as: ?Pain or burning when you urinate. ?Foul smelling or thick or yellowish vaginal discharge. Warning signs in the second trimester As your baby grows and changes during the second trimester, there are additional signs and symptomsthat may indicate a problem. These include: Signs and symptoms of infection, including a fever. Signs or symptoms of a miscarriage or labor, such as regular contractions, menstrual-like cramping, or lower abdominal pain. Bloody or watery vaginal discharge or obvious vaginal bleeding. Feeling like your heart is pounding. Having trouble breathing. Nausea, vomiting, or diarrhea that lasts for longer than a day. Craving non-food items, such as miguel, chalk, or dirt. This may be a sign of a very treatable medical condition called pica. Later in your second trimester, watch for signs and symptoms of a serious medical condition called preeclampsia.These include: Changes in your vision. A severe headache that does not go away. Nausea and vomiting. It is also important to notice if your baby stops moving or moves less than usual during this time. Warning signs in the third trimester As you approach the third trimester, your baby is growing and your body is preparing for the of your baby. In your third trimester, be sure to let your health care provider know if: You have signs and symptoms of infection, including a fever. You have vaginal bleeding. You notice that your baby is moving less than usual or is not moving. You have nausea, vomiting, or diarrhea that lasts for longer than a day. You have a severe headache that does not go away. You have vision changes, including seeing spots or having blurry or double vision. You have increased swelling in your hands or face. How does this affect my baby? Throughout your , always report any of the warning signs of a problem to your health care provider. This can help prevent complications that may affect your baby, including: Increased risk for premature . Infection that may be transmitted to your baby. Increased risk for stillbirth. Contact a health care provider if: You have any of the warning signs of a problem for the current trimester of your . Any of the following apply to you during any trimester of : ?You have strong emotions, such as sadness or anxiety, that interfere with work or personal relationships. ?You feel unsafe in your home and need help finding a safe place to live. ?You are using tobacco products, alcohol, or drugs and you need help to stop. Get help right away if: You have signs or symptoms of labor before 37 weeks of . These include: Contractions that are 5 minutes or less apart, or that increase in frequency, intensity, or length. Sudden, sharp abdominal pain or low back pain. Uncontrolled gush or trickle of fluid from your vagina. Summary A lasts about 40 weeks, starting from the first day of your last period until the baby isborn. is divided into three phases called trimesters. Each trimester has warning signs towatch for. Always report any warning signs to your health care provider in order to prevent complications thatmay affect both you and your baby. Talk with your health care provider about your current health and any medical conditions you have. Make sure you know the symptoms that you should watch for and report. This information is not intended to replace advice given to you by your health care provider. Make sure you discuss any questions you have with your health care provider. Document Released: 03/05/2018 Document Revised: 09/07/2019 Document Reviewed: 03/05/2018 [employer] Patient Education 2020 [employer] 07/12/2022 12:18:13 Baraga Espinal Contractions Baraga Espinal Contractions Contractions of the uterus can occur throughout , but they are not always a sign that you are in labor. You may have practice contractions called [place] Espinal contractions. These false labor contractions are sometimes confused with true labor. What are David Espinal contractions? Bar[place] Espinal contractions are tightening movements that occur in the muscles of the uterus before labor. Unlike true labor contractions, these contractions do not result in opening (dilation) and thinning of the cervix. Toward the end of (32 34 weeks), Baraga Espinal contractions can happen more often and may become stronger. These contractions are sometimes difficult to tell apart fromtrue labor because they can be very uncomfortable. You [facility] not feel [facility]. Sometimes, the only way to tell if you are in true labor is for your health care provider to look for changes in the cervix. The health care provider will do a physical exam and may monitor your contractions. If you are not in true labor, the exam should show that your cervix is not dilating and your water has not broken. If there are no other health problems associated with your , it is completely safe for youto be sent home with false labor. You may continue to have Bar[place] Espinal contractions until you go into true labor. How to tell the difference between true labor and false labor True labor Contractions last 30 70 seconds. Contractions become very regular. Discomfort is usually felt in the top of the uterus, and it spreads to the lower abdomen and low back. Contractions do not go away with walking. Contractions usually become more intense and increase in frequency. The cervix dilates and gets thinner. False labor Contractions are usually shorter and not as strong as true labor contractions. Contractions are usually irregular. Contractions are often felt in the front of the lower abdomen and in the groin. Contractions may go away when you walk around or change positions while lying down. Contractions get weaker and are shorter-lasting as time goes on. The cervix usually does not dilate or become thin. Follow these instructions at home: Take [id number] and prescription medicines only as told by your health care provider. Keep up with your usual exercises and follow other instructions from your health care provider. Eat and drink lightly if you think you are going into labor. If David Espinal contractions are making you uncomfortable: ?Change your position from lying down or resting to walking, or change from walking to resting. ?Sit and rest in a tub of warm water. ?Drink enough fluid to keep your urine pale yellow. Dehydration may cause these contractions. ?Do slow and deep breathing several times an hour. Keep all follow-up visits as told by your health care provider. This is important. Contact a health care provider if: You have a fever. You have continuous pain in your abdomen. Get help right away if: Your contractions become stronger, more regular, and closer together. You have fluid leaking or gushing from your vagina. You pass blood-tinged mucus (bloody show). You have bleeding from your vagina. You have low back pain that you never had before. You feel your baby s head pushing down and causing pelvic pressure. Your baby is not moving inside you as much as it used to. Summary Contractions that occur before labor are called [place] Espinal contractions, false labor, or practice contractions. David Espinal contractions are usually shorter, weaker, farther apart, and less regular than true labor contractions. True labor contractions usually become progressively stronger and regular, and they become more frequent. Manage discomfort from David Espinal contractions by changing position, resting in a warm bath, drinking plenty of water, or practicing deep breathing. This information is not intended to replace advice given to you by your health care provider. Make sure you discuss any questions you have with your health care provider. Document Released: 10/02/2017 Document Revised: 05/01/2018 Document Reviewed: 10/02/2017 [employer] Patient Education 2020 [employer] 07/12/2022 12:18:12 Signs and Symptoms of Labor Signs and Symptoms of Labor Labor is your body's natural process of moving your baby, placenta, and umbilical cord out of your uterus. The process of labor usually starts when your baby is full-term, between 37 and 40 weeks of . How will I know when I am close to going into labor? As your body prepares for labor and the of your baby, you may notice the following symptoms in the weeks and days before true labor starts: Having a strong desire to get your home ready to receive your new baby. This is called nesting. Nesting may be a sign that labor is approaching, and it may occur several weeks before . Nesting may involve cleaning and organizing your home. Passing a small amount of thick, bloody mucus out of your vagina (normal bloody show or losing yourmucus plug). This may happen more than a week before labor begins, or it might occur right before labor begins as the opening of the cervix starts to widen (dilate). For some women, the entire mucus plug passes at once. For others, smaller portions of the mucus plug may gradually pass over several days. Your baby moving (dropping) lower in your pelvis to get into position for (lightening). When this happens, you may feel more pressure on your bladder and pelvic bone and less pressure on your ribs. This may make it easier to breathe. It may also cause you to need to urinate more often and have problems with bowel movements. Having practice contractions (David Espinal contractions) that occur at irregular (unevenly spaced) intervals that are more than 10 minutes apart. This is also called false labor. False labor contractions are common after exercise or sexual activity, and they will stop if you change position, rest, or drink fluids. These contractions are usually mild and do not get stronger over time. They may feel like: ?A backache or back pain. ?Mild cramps, similar to menstrual cramps. ?Tightening or pressure in your abdomen. Other early symptoms that labor may be starting soon include: Nausea or loss of appetite. Diarrhea. Having a sudden burst of energy, or feeling very tired. Mood changes. Having trouble sleeping. How will I know when labor has begun? Signs that true labor has begun may include: Having contractions that come at regular (evenly spaced) intervals and increase in intensity. This may feel like more intense tightening or pressure in your abdomen that moves to your back. ?Contractions may also feel like rhythmic pain in your upper thighs or back that comes and goes at regular intervals. ?For first-time mothers, this change in intensity of contractions often occurs at a more gradual pace. ?Women who have given before may notice a more rapid progression of contraction changes. Having a feeling of pressure in the vaginal area. Your water breaking (rupture of membranes). This is when the sac of fluid that surrounds your baby breaks. When this happens, you will notice fluid leaking from your vagina. This may be clear or blood-tinged. Labor usually starts within 24 hours of your water breaking, but it may take longer to begin. ?Some women notice this as a gush of fluid. ?Others notice that their underwear repeatedly becomes damp. Follow these instructions at home: When labor starts, or if your water breaks, call your health care provider or nurse care line. Based on your situation, they will determine when you should go in for an exam. When you are in early labor, you may be able to rest and manage symptoms at home. Some strategies to try at home include: ?Breathing and relaxation techniques. ?Taking a warm bath or shower. ?Listening to music. ?Using a heating pad on the lower back for pain. If you are directed to use heat: ?Place a towel between your skin and the heat source. ?Leave the heat on for 20 30 minutes. ?Remove the heat if your skin turns bright red. This is especially important if you are unable to feel pain, heat, or cold. You may have a greater risk of getting burned. Get help right away if: You have painful, regular contractions that are 5 minutes apart or less. Labor starts before you are 37 weeks along in your . You have a fever. You have a headache that does not go away. You have bright red blood coming from your vagina. You do not feel your baby moving. You have a sudden onset of: ?Severe headache with vision problems. ?Nausea, vomiting, or diarrhea. ?Chest pain or shortness of breath. These symptoms may be an emergency. If your health care provider recommends that you go to the hospital or center where you plan to deliver, do not drive yourself. Have someone else drive you, or call emergency services (911 in the [place] Summary Labor is your body's natural process of moving your baby, placenta, and umbilical cord out of your uterus. The process of labor usually starts when your baby is full-term, between 37 and 40 weeks of . When labor starts, or if your water breaks, call your health care provider or nurse care line. Based on your situation, they will determine when you should go in for an exam. This information is not intended to replace advice given to you by your health care provider. Make sure you discuss any questions you have with your health care provider. Document Released: 10/24/2017 Document Revised: 02/16/2018 Document Reviewed: 10/24/2017 [employer] Patient Education 2020 [employer]. Follow Up Care 07/11/2022 03:35:57 With:Follow up with primary OB and Neuro MD as scheduled Address:Unknown When: Unknown With:RENÉE CORBETT Address: [place] [place] [address] [place] (1) When: Unknown [facility] 02-10-2023 Note Discharge Instructions Thank you for allowing [facility] to assist you with your healthcare needs. The following is importantdischarge information regarding your hospital visit. Your Care Team RENÉE CORBETT MD What to do next Instructions From Your Doctor Your new dose of Keppra 1750mg BID will be sent to you by your Neurologist at [facility] Avoid medications like Wellbutrin and Tramadol which can lower seizure threshold Seizure precautions discussed in detail. Patient counseled not climb on ladders, heights, roofs, patient counseled not to swim alone, patient counseled not to work with sharp objects, SUDEP risks discussed, avoid sleep deprivation, excessive alcohol consumption, avoid using bath tubs and use showerfor bathing. Patient counseled not to drive for 6 months and would need clearance from outpatient neurologist prior to driving. Follow Up Appointments Follow Up with Follow up with primary OB and Neuro MD as scheduled When Follow Up with RENÉE CORBETT When In 0 days Where: [place] [address] [place] (1) Someone Will Contact You Regarding These Home Health Referrals No home referrals have been ordered for you. No one will call you. The Following Activity and Diet Have Been Ordered for You Discharge Activity - Ordered -- Resume your pre-hospitalization activity, 07/12/22 12:12:00 EST Discharge Diet - Ordered -- No changes were made to your diet during your hospital stay. Please resume your pre hospitalization diet on discharge., 07/12/22 12:12:00 EST The Following Equipment Has Been Ordered for You No qualifying data available. The Following Treatments Have Been Arranged for You Discharge Labs No qualifying data available. Discharge Radiology No qualifying data available. Other Therapies No qualifying data available. Allergies Depakote Medications Please ask your primary doctor or pharmacist before taking any other medication not listed, including over the counter drugs, herbal medications, vitamins and or supplements as they may [facility]. What How Much When Instructions Last Dose Changed cephalexin (cephalexin 500 mg oral capsule) 1 cap by mouth Four (4) times a day Duration: 6 Days Pickup at [facility]/pharmacy #[id number] Changed levETIRAcetam (Keppra 500 mg oral tablet) 3.5 tab(s) by mouth Two (2) times a day Unchanged clonazePAM (KlonoPIN 0.5 mg oral tablet) 1 tab(s) by mouth As needed for Seizures Unchanged folic acid Once a day Unchanged lacosamide 200 Milligram Two (2) times a day Unchanged zonisamide (zonisamide 100 mg oral capsule) 3 cap by mouth Daily at bedtime Unchanged zonisamide (zonisamide 100 mg oral capsule) 2 cap by mouth Once a day (in the morning) Pharmacy Information [facility]/pharmacy #[id number]: [address], [place] [id number] [phone] Please take this list to your next doctor s visit. Bring all medications you take, including over the counter medications, herbals and other supplements with you to your doctor s visit. Patients and families are reminded to discard old lists and to update any records with all medication providers or retail pharmacies. Education Materials Preventing Defects with Folic Acid What is folic acid? Folic acid is a vitamin that is used by the body to create new cells and keep the blood healthy. Everyone needs folic acid to stay healthy. It is especially important if you are . Folic acid is artificial (synthetic). The vitamin in its natural form is called folate. Some foods are natural sources of folate, and other foods have folic acid added to them (fortified foods). You can also buy folic acid supplements or vitamins that contain folic acid. Why is folic acid important during ? Folic acid helps reduce your baby's risk of serious defects, especially: Spina bifida. Spina bifida occurs when a baby's spinal column does not develop completely. This cancause serious, long-term (chronic) disabilities. Anencephaly. This is a defect that causes your baby to be missing parts of the brain, scalp, and skull when he or she is born. Most babies born with anencephaly only live for a short amount of time. Spina bifida and anencephaly are commonly associated with a lack of folic acid during . How much folic acid do I need? If you are or planning to become , your health care provider may prescribe vitamins that contain the right amount of folic acid that you need. If you plan to become , you should take at least 400 mcg (micrograms) of folic acid daily. defects usually occur in the earliest stages of , often before you know you are . Taking folic acid when you start trying to become can help prevent defects. While you are , you need at least 600 mcg of folic acid each day. What nutrition changes can be made? To increase your intake of folate and folic acid, you may: Eat more foods that are fortified with folic acid. Check food labels to see whether a food containsfolic acid. Foods that are commonly fortified with folic acid include: ? Cereals. ? Pastas. ? Flours. ? White rice. ? Breads. Eat more foods that are natural sources of folate, such as: ? Legumes, including lentils, peas, and beans. ? Nuts. ? Vegetables, especially dark green leafy vegetables, such as spinach and mustard greens. ? Sharp fruits and juices. Your health care provider may still recommend that you take a supplement to make sure that you get enough to reduce the risk of defects. Where to find support Talk with your health care provider or your pharmacist to find a folic acid supplement that is right for you. Your health care provider may recommend that you see a affiliate marketing specialist (veneer joiner). A veneer joiner can help you make healthy food choices and get more folate from your diet. Nutrition education programs may be available through your community health department. Where to find more information Visit the following websites to learn more about the importance of folic acid. Centers for Disease Control and Prevention: www.cdc.gov/ncbddd/folicacid/about.html The Office on Women's Health: womenshealth.gov/publications/our-publications/fact-sheet/folic-acid.html National Institutes of Health: ods.od.nih.gov/factsheets/Folate-Consumer The July Dimes: www.marchofdimes.org//folic-acid.aspx Summary It is important to start taking folic acid when you are planning to become , because many defects can happen before you know that you are . You can get more folate and folic acid from your diet. Look for certain foods that are fortified with folic acid. Your health care provider may recommend that you take a supplement to get enough folic acid. This information is not intended to replace advice given to you by your health care provider. Make sure you discuss any questions you have with your health care provider. Document Released: 06/19/2016 Document Revised: 05/01/2018 Document Reviewed: 06/19/2016 [employer] Patient Education 2020 [employer]. Warning Signs During A lasts about 40 weeks, starting from the first day of your last period until the baby isborn. is divided into three phases called trimesters. The first trimester refers to week 1 through week 13 of . The second trimester is the start of week 14 through the end of week 27. The third trimester is the start of week 28 until you deliver your baby. During each trimester of , certain signs and symptoms may indicate a problem. Talk with your health care provider about your current health and any medical conditions you have. Make sure youknow the symptoms that you should watch for and report. How does this affect me? Warning signs in the first trimester While some changes during the first trimester may be uncomfortable, most do not represent a seriousproblem. Let your health care provider know if you have any of the following warning signs in the first trimester: You cannot eat or drink without vomiting, and this lasts for longer than a day. You have vaginal bleeding or spotting along with menstrual-like cramping. You have diarrhea for longer than a day. You have a fever or other signs of infection, such as: ? Pain or burning when you urinate. ? Foul smelling or thick or yellowish vaginal discharge. Warning signs in the second trimester As your baby grows and changes during the second trimester, there are additional signs and symptomsthat may indicate a problem. These include: Signs and symptoms of infection, including a fever. Signs or symptoms of a miscarriage or labor, such as regular contractions, menstrual-like cramping, or lower abdominal pain. Bloody or watery vaginal discharge or obvious vaginal bleeding. Feeling like your heart is pounding. Having trouble breathing. Nausea, vomiting, or diarrhea that lasts for longer than a day. Craving non-food items, such as miguel, chalk, or dirt. This may be a sign of a very treatable medical condition called pica. Later in your second trimester, watch for signs and symptoms of a serious medical condition called preeclampsia.These include: Changes in your vision. A severe headache that does not go away. Nausea and vomiting. It is also important to notice if your baby stops moving or moves less than usual during this time. Warning signs in the third trimester As you approach the third trimester, your baby is growing and your body is preparing for the of your baby. In your third trimester, be sure to let your health care provider know if: You have signs and symptoms of infection, including a fever. You have vaginal bleeding. You notice that your baby is moving less than usual or is not moving. You have nausea, vomiting, or diarrhea that lasts for longer than a day. You have a severe headache that does not go away. You have vision changes, including seeing spots or having blurry or double vision. You have increased swelling in your hands or face. How does this affect my baby? Throughout your , always report any of the warning signs of a problem to your health care provider. This can help prevent complications that may affect your baby, including: Increased risk for premature . Infection that may be transmitted to your baby. Increased risk for stillbirth. Contact a health care provider if: You have any of the warning signs of a problem for the current trimester of your . Any of the following apply to you during any trimester of : ? You have strong emotions, such as sadness or anxiety, that interfere with work or personal relationships. ? You feel unsafe in your home and need help finding a safe place to live. ? You are using tobacco products, alcohol, or drugs and you need help to stop. Get help right away if: You have signs or symptoms of labor before 37 weeks of . These include: Contractions that are 5 minutes or less apart, or that increase in frequency, intensity, or length. Sudden, sharp abdominal pain or low back pain. Uncontrolled gush or trickle of fluid from your vagina. Summary A lasts about 40 weeks, starting from the first day of your last period until the baby isborn. is divided into three phases called trimesters. Each trimester has warning signs towatch for. Always report any warning signs to your health care provider in order to prevent complications thatmay affect both you and your baby. Talk with your health care provider about your current health and any medical conditions you have. Make sure you know the symptoms that you should watch for and report. This information is not intended to replace advice given to you by your health care provider. Make sure you discuss any questions you have with your health care provider. Document Released: 03/05/2018 Document Revised: 09/07/2019 Document Reviewed: 03/05/2018 [employer] Patient Education 2020 [employer] Bar[place] Espinal Contractions Contractions of the uterus can occur throughout , but they are not always a sign that you are in labor. You may have practice contractions called David Espinal contractions. These false labor contractions are sometimes confused with true labor. What are Bar[place] Espinal contractions? Bar[place] Espinal contractions are tightening movements that occur in the muscles of the uterus before labor. Unlike true labor contractions, these contractions do not result in opening (dilation) and thinning of the cervix. Toward the end of (32 34 weeks), David Espinal contractions can happen more often and may become stronger. These contractions are sometimes difficult to tell apart fromtrue labor because they can be very uncomfortable. You [facility]. Sometimes, the only way to tell if you are in true labor is for your health care provider to look for changes in the cervix. The health care provider will do a physical exam and may monitor your contractions. If you are not in true labor, the exam should show that your cervix is not dilating and your water has not broken. If there are no other health problems associated with your , it is completely safe for youto be sent home with false labor. You may continue to have David Espinal contractions until you go into true labor. How to tell the difference between true labor and false labor True labor Contractions last 30 70 seconds. Contractions become very regular. Discomfort is usually felt in the top of the uterus, and it spreads to the lower abdomen and low back. Contractions do not go away with walking. Contractions usually become more intense and increase in frequency. The cervix dilates and gets thinner. False labor Contractions are usually shorter and not as strong as true labor contractions. Contractions are usually irregular. Contractions are often felt in the front of the lower abdomen and in the groin. Contractions may go away when you walk around or change positions while lying down. Contractions get weaker and are shorter-lasting as time goes on. The cervix usually does not dilate or become thin. Follow these instructions at home: Take wyja-qtd-dqraiki and prescription medicines only as told by your health care provider. Keep up with your usual exercises and follow other instructions from your health care provider. Eat and drink lightly if you think you are going into labor. If [place] Espinal contractions are making you uncomfortable: ? Change your position from lying down or resting to walking, or change from walking to resting. ? Sit and rest in a tub of warm water. ? Drink enough fluid to keep your urine pale yellow. Dehydration may cause these contractions. ? Do slow and deep breathing several times an hour. Keep all follow-up visits as told by your health care provider. This is important. Contact a health care provider if: You have a fever. You have continuous pain in your abdomen. Get help right away if: Your contractions become stronger, more regular, and closer together. You have fluid leaking or gushing from your vagina. You pass blood-tinged mucus (bloody show). You have bleeding from your vagina. You have low back pain that you never had before. You feel your baby s head pushing down and causing pelvic pressure. Your baby is not moving inside you as much as it used to. Summary Contractions that occur before labor are called Bar[place] Espinal contractions, false labor, or practice contractions. Bar[place] Espinal contractions are usually shorter, weaker, farther apart, and less regular than true labor contractions. True labor contractions usually become progressively stronger and regular, and they become more frequent. Manage discomfort from Bar[place] Espinal contractions by changing position, resting in a warm bath, drinking plenty of water, or practicing deep breathing. This information is not intended to replace advice given to you by your health care provider. Make sure you discuss any questions you have with your health care provider. Document Released: 10/02/2017 Document Revised: 05/01/2018 Document Reviewed: 10/02/2017 [employer] Patient Education 2020 [employer] Signs and Symptoms of Labor Labor is your body's natural process of moving your baby, placenta, and umbilical cord out of your uterus. The process of labor usually starts when your baby is full-term, between 37 and 40 weeks of . How will I know when I am close to going into labor? As your body prepares for labor and the of your baby, you may notice the following symptoms in the weeks and days before true labor starts: Having a strong desire to get your home ready to receive your new baby. This is called nesting. Nesting may be a sign that labor is approaching, and it may occur several weeks before . Nesting may involve cleaning and organizing your home. Passing a small amount of thick, bloody mucus out of your vagina (normal bloody show or losing yourmucus plug). This may happen more than a week before labor begins, or it might occur right before labor begins as the opening of the cervix starts to widen (dilate). For some women, the entire mucus plug passes at once. For others, smaller portions of the mucus plug may gradually pass over several days. Your baby moving (dropping) lower in your pelvis to get into position for (lightening). When this happens, you may feel more pressure on your bladder and pelvic bone and less pressure on your ribs. This may make it easier to breathe. It may also cause you to need to urinate more often and have problems with bowel movements. Having practice contractions (Bar[place] Espinal contractions) that occur at irregular (unevenly spaced) intervals that are more than 10 minutes apart. This is also called false labor. False labor contractions are common after exercise or sexual activity, and they will stop if you change position, rest, or drink fluids. These contractions are usually mild and do not get stronger over time. They may feel like: ? A backache or back pain. ? Mild cramps, similar to menstrual cramps. ? Tightening or pressure in your abdomen. Other early symptoms that labor may be starting soon include: Nausea or loss of appetite. Diarrhea. Having a sudden burst of energy, or feeling very tired. Mood changes. Having trouble sleeping. How will I know when labor has begun? Signs that true labor has begun may include: Having contractions that come at regular (evenly spaced) intervals and increase in intensity. This may feel like more intense tightening or pressure in your abdomen that moves to your back. ? Contractions may also feel like rhythmic pain in your upper thighs or back that comes and goes at regular intervals. ? For first-time mothers, this change in intensity of contractions often occurs at a more gradual pace. ? Women who have given before may notice a more rapid progression of contraction changes. Having a feeling of pressure in the vaginal area. Your water breaking (rupture of membranes). This is when the sac of fluid that surrounds your baby breaks. When this happens, you will notice fluid leaking from your vagina. This may be clear or blood-tinged. Labor usually starts within 24 hours of your water breaking, but it may take longer to begin. ? Some women notice this as a gush of fluid. ? Others notice that their underwear repeatedly becomes damp. Follow these instructions at home: When labor starts, or if your water breaks, call your health care provider or nurse care line. Based on your situation, they will determine when you should go in for an exam. When you are in early labor, you may be able to rest and manage symptoms at home. Some strategies to try at home include: ? Breathing and relaxation techniques. ? Taking a warm bath or shower. ? Listening to music. ? Using a heating pad on the lower back for pain. If you are directed to use heat: ? Place a towel between your skin and the heat source. ? Leave the heat on for 20 30 minutes. ? Remove the heat if your skin turns bright red. This is especially important if you are unable to feel pain, heat, or cold. You may have a greater risk of getting burned. Get help right away if: You have painful, regular contractions that are 5 minutes apart or less. Labor starts before you are 37 weeks along in your . You have a fever. You have a headache that does not go away. You have bright red blood coming from your vagina. You do not feel your baby moving. You have a sudden onset of: ? Severe headache with vision problems. ? Nausea, vomiting, or diarrhea. ? Chest pain or shortness of breath. These symptoms may be an emergency. If your health care provider recommends that you go to the hospital or center where you plan to deliver, do not drive yourself. Have someone else drive you, or call emergency services (911 in the [place] Summary Labor is your body's natural process of moving your baby, placenta, and umbilical cord out of your uterus. The process of labor usually starts when your baby is full-term, between 37 and 40 weeks of . When labor starts, or if your water breaks, call your health care provider or nurse care line. Based on your situation, they will determine when you should go in for an exam. This information is not intended to replace advice given to you by your health care provider. Make sure you discuss any questions you have with your health care provider. Document Released: 10/24/2017 Document Revised: 02/16/2018 Document Reviewed: 10/24/2017 [employer] Patient Education 2020 [employer]. Additional Information VACCINATE! IT SAVES LIVES! Members of the community who have not yet received the COVID-19 vaccine and would like to receive it can visit one of [facility] vaccine clinics. There are many vaccine clinic locations within the [facility]. For locations and available times, please visit [email or web address]. It is important to note that some COVID mobile vaccine clinics are held outdoors and may be canceled in rainy orstormy conditions. To learn more about pediatric vaccinations (ages 5-11), we invite you to visit the [facility] webpage. [email or web address] learn more about the COVID-19 vaccine, we invite you to visit the [facility] website for a list of frequently asked questions. [email or web address] [facility] Patient Portal Access Instructions: Stay connected with your healthcare team and access your personal medical information anytime with the [facility] Patient Portal.If you would like a full copy of your medical records, please contact the [facility] Medical Records Department, Friday through Friday between 8a.m. and 4:30p.m. Please follow the directions below to access the portal: 1.Access the email account you provided upon registration to the [facility].2.Look for an invitation email from [facility].3.Open the email and access the invitation link: Accept Invitation to [facility]4.Fill in the required pearce to create your account. Sign into www.[employer] with your username and password that you created in the above steps to stay up to date. You can then view a summary of results, a summary of your visits, and the ability to download your summaries to your computer or send the information securely to a physician. Remember that your healthcare information is confidential, so carefully consider who you will allow to register on the [employer] Patient Portal for access to your information. You can also access the [employer] [facility] Patient Portal on the [employer] domingo. Simply click on Health Records under [employer] and then click on the [employer] logo. HOW TO SAFELY DISPOSE OF PRESCRIPTION MEDICATIONS Please use one of the following methods to safely dispose of your unused medications. 1.Use a drug disposal kit: the drug disposal pouch allows you to safely discard your old and unuseddrugs. Ask your nurse to give you one when you are discharged.2.Visit a local take-back location: Many local pharmacies and police departments have programs that collect old and unwanted prescriptiondrugs. Call your local pharmacy or go to http://G2 Crowd.OncoEthix/2A2Yo5n to find one close to you.3.Make use of household items: Use cat litter or old coffee grounds to dispose medications if other options arenot available. Mix your drugs with these household products, seal them in an airtight container andthrow it into the garbage. Call [facility]: [phone] to be sure your drugs can be disposed of in this way. Some medicines may require a different approach.4.Never flush your medications down the toilet. IF YOU HAVE BEEN PRESCRIBED AN OPIOID FOR PAIN If you have been prescribed an opioid (such as hydrocodone, oxycodone or morphine), it is critical to understand the possible side effects and risks of opioid pain medications. Even when taken as directed, opioids can have several side effects including: Tolerance, meaning you might need to take more of a medication for the same pain relief. Nausea, vomiting and/or constipation. Sleepiness, dizziness, dry mouth, confusion, depression or itching. Physical dependence, meaning you have withdrawal symptoms when a medication is stopped, can develop within a few days. KNOW YOUR RESPONSIBILITIES It is important to know exactly how much and how often to take the opioid pain medications you are prescribed. Never take opioids in higher amounts or more often than prescribed. Do not combine opioids with alcohol or other drugs that cause drowsiness, such as benzodiazepines, also known as benzos,including diazepam and alprazolam, muscle relaxants or sleep aids. Never sell or share prescriptionopioids. This is illegal. Store opioids in a secure place and out of reach of others (including children, family, friends and visitors). The last page of this document has been signed and retained as a CHART COP[employer] Signatures Patient Education Materials Preventing Defects With Folic Acid Warning Signs During Baraga Espinal Contractions Signs and Symptoms of Labor Medication Leaflets My discharge plan and instructions have been reviewed and explained to me and I,VIC WARE understand my current condition and have read and understand these discharge instructions. I have received a written copy of the plan/instructions. If I have questions, I am aware that I should contact my doctor. Patient/Flight Operation Coordinator Signature: Date/Time: Relationship to Patient: Witness Name/Signature: [id number] Note Date of Service 07/12/2022 OB Antepartum Discharge Summary Discharge Diagnosis: ( ) Oligohydramnios ( ) Pre-term Contractions ( ) Pre-term Labor ( ) Chronic HTN ( ) Mild preeclampsia ( ) Cervical insufficiency ( ) s/p Trauma ( ) Cholecystitis ( ) Multiple gestation ( ) Other: Epilepsy, UTI Procedures: ( ) Cerclage ( ) Amniocentesis ( ) PUBS ( ) Amnioreduction Treatments: ( ) Steroids given Dates: ( ) Tocolytics given Hospital Course: ( ) Uncomplicated ( X ) See progress notes Abnormal Lab/Test Value: ( ) None ( X ) See progress notes RH: ( ) N/A ( X ) Rh positive ( ) Rh neg ( ) RhoGAM given Rx: Keflex 500 mg QID x 6 days, Keppra 1750 mg BID Consultations/referrals: ( ) None ( ) Social Service ( ) Home Health ( ) Genetics ( ) Perinatology ( ) Surgery ( ) Infectious Disease ( ) Nutrition ( X ) Anesthesia ( x ) MFM ( x ) Other: Neurology Disposition: Home Condition on Discharge: Stable Follow-up Care: See discharge instructions Digitally Signed by ARTUR NAVARRO MD on 07/12/2022 12:19 PM [id number] Maternal and medicine Consult note MATERNAL MEDICINE REVIEW Consult Referral from: Maternal- transport [facility] . [facility] Admission: She is 31 years of age 1 with a SUNG of 10/14/2022 by early ultrasound. She is presently 26 weeks and 3 days. She is admitted on 07/11/2022 as a transfer from [facility] where she was seen last night with history of having had a seizure that was witnessed by the father of the baby. She apparently gets seizures often and is under care of [facility] and on multiple medications. She did not miss any medications. Apparently she lost consciousness and apparently she fell and her partner has concerns that she might have hurt her head as she fell backwards. Her physician in [facility] is Dr. Green. She started on magnesium sulfate until eclampsia has been definitively excluded. Presently: Upon admission her blood pressures were normal. There is no evidence of placental abruption. Preeclampsia labs were ordered and returned normal. Given the foregoing reassurance against eclampsia, magnesium sulfate was appropriately discontinued. Inpatient neurology consultation has been sought. Her current status was reviewed with the patient. Questions were encouraged and answered. Stable and without any secondary complications-thus ongoing expectant management is appropriate. She denies any history of headaches, vision changes, right upper quadrant pain, contractions, vaginal bleeding, leakage of fluid, and states the activity is plentiful. She additionally has no historyof chills or fevers or any arthralgias. She generally feels well. See assessments for additional details Heart Rate Strip: Review of the strip- It reveals it to have normal rate and baseline variability with occasional reactivity and absence of decelerations. No notable uterine activity. Maternal Vitals: Vitals Signs(Last 24 hrs)__Last Charted Minimum Maximum Temp36.7(JUL 11 16:03)36.7(JUL 11 16:03)36.8(JUL 11 04:15) Heart RateH 106(JUL 11 16:03)L 57(JUL 11 05:30)H 106(JUL 11 16:03) Resp Rate16(JUL 11 16:03)16(JUL 11 04:15)H 22(JUL 11:46) AZR231(JUL 11 16:03)100(JUL 11 08:00)131(JUL 11 16:03) DBP77(JUL 11 16:03)L 57(JUL 11 07:30)83(JUL 11 09:46) Laboratory Assays: 36hr Labs 07/11 0709 U Adjgmot43.8 U Hhnosyhyuc76.7 U Ratio Prot/Creat0.2 Creatinine Lvl (s)0.54 Albumin Level2.6L Alk Tmzb733 Bili Total0.20 BUN7.0L Calcium Lvl8.2L Nlzcykti994 KQ317K Glucose Level91 QLN654 Potassium Level3.9 Sodium Yhabo210 Total Protein5.8 BUN/Creatinine Ratio13.0 Globulin3.2 A/G Ratio0.8L AST/SGOT14 ALT/SGPT12 Electrolyte Ecougtq43.0 GFR Non->60 GFR >60 Hct32.3L Hgb10.7L MCH28.4 MCHC33.2 MCV85.5 MPV8.8 Eyswjogz184 RBC3.78L RDW13.9 WBC10.7 ASSESSMENTS SUNG: October 14, 2022 Gestational Age: 26 weeks 3 days Medications: She is on vitamins. She is additionally on: Keppra 1500 units twice daily, zonisamide 200 mg in the morning and 300 mg in the evening, Vimpat 200 mg twice daily. He has Klonopin 0.5 mg immediately disintegrating to be used as needed be. She is to only use it if the seizure lasts more than 2 minutes. Seizure Disorder: She has had a chronic seizure disorder that has been problematic and she is seizures often and under care of [facility] Dr. Green. Medications as listed above she has an appointment to see him tomorrow. She has had a vagal nerve stimulator in the past but is not on it and controlled just by medications. Patient is s/p inpatient hospitalist neurologist consultation sampson focus presently will be to exclude any concern for concussion to the head from the fall. It does not appear she had an eclamptic seizure. The goal is to monitor till 8 AM tomorrow and if neurologically stable to be discharged and her partner will drive her to [facility] for her neurology appointment. Presently being monitored for possible concussion and neurology exam is unremarkable per neurology consultation Assessments: Ultrasound 07/11/2022 revealed EFW 874 g at 43% and AC at 23% without any anomalies. Obstetrically there is no concern for abruption. Comorbidities: BMI BMI 33 Past Obstetric History: Nulliparous Care: She is not COVID vaccinated. labs are pending from most [employer]CH[employer]IAN comorbidities CARE PLAN Patient Education: Indication for inpatient monitoring till tomorrow 8 AM to ensure medical stability was discussed. Self Surveillance Education: Need for extension of the monitoring for risk of subdural hematomas after discharge will be reviewed at the time of discharge Goal for Obstetric Care: Exams has been excluded. We will exclude secondary comorbidities from injury to the head with extended observation until tomorrow morning Medications: As reviewed under assessment Laboratory Testing: Baseline preeclampsia labs within normal limits Evaluations: NST every shift for 1 hour with suffice Consults: Status post NICU consultation I have seen and evaluated the patient. I have obtained the garcia portion of the history and physical examination as stated above. I have discussed the patient with the resident. I have reviewed the resident's documentation and agree with it. The medical decision making was done together with the resident and is documented in resident note. Inpatient Care: Floor time of 80 minutes Loni Gurrola MD. Maternal Medicine Digitally Signed by NARA GURROLA MD on 07/11/2022 06:19 PM [id number] Evaluation + Plan note Diagnostic Tests Pending * Zonisamide Level 07/11/22 * Lacosamide Level 07/11/22 [facility] 02-09-[facility]23 Neurology Consult note Date of Service 07/11/2022 Reason for Consultation seizure like activity Referring Physician Dr. Pedraza History of Present Illness 21 yr F 26 weeks with PMH Epilepsy s/p VNS admitted with seizure like activity. History obtained from medical records and documentation as well as from the patient and her mother. Per patient she has been having seizures since the age of 8 years, sees epilepsy specialist from [facility], at baseline he is on Keppra 1500 mg twice daily, zonisamide 300 mg nightly and 200 mg every morning, Vimpat 200 mg twice daily, Klonopin 0.5 mg as needed. Per patient and her mother she does haveintermittent seizure episodes where she stares off into space, at present she has been having seizures where she would lose her tone and fall. Per mother she had about 3 episodes of generalized clonic seizures in the past. At present patient is at her baseline, denies any focal deficits, headache, dizziness, visual symptoms, speech disturbances or sensory loss. UA on admission showed moderate LE,WBC 15-25, +4 bacteria. Review of Systems Complete ROS negative except as documented in HPI. Physical Exam Vitals and Measurements T: 36.9 C (Oral) TMIN: 36.7 C (Oral) TMAX: 36.9 C (Oral) HR: 97(Monitored) RR: 22 BP: 121/83 SpO2: 100% HT: 160.0 cm WT: 86.0 kg BMI: 33.59 Weight Dosing Weight: 86 kg (07/11/22) General Examination: conscious, alert, oriented, AoA x3 HEENT: normocephalic, pupils BERL Heart: normal S1 S2 Lungs: Bilateral air entry present Abdomen: bowel sounds present Psychiatry: Denies Anxiety, depression or suicidal ideations at present Neuro: Conscious, alert, oriented AoA x3, CN II-XII normal, no Nystagmus, EOMI, pupils BERL, No facial sensory loss, no facial asymmetry, tongue protrudes in midline, no uvula deviation, normal shoulder shrug, Power 5/5 B/L UE and LE, tone normal all 4 extremities, No tremors, No pronator drift, Reflexes + B/S/T/K/A, Plantars B/L flexor, No cerebellar signs, Romberg s deferred, No sensory loss tolight touch/temperature, normal joint/position/vibration sense, gait deferred, No frontal release signs. No involuntary movements, No NR, No Kernig s sign, No Brudzinski s sign Lab Results 07/11 05:05 WBC: 10.7 Hgb: 10.7 L Hct: 32.3 L Platelet: 261 Neutrophil %: 75.7 H Glucose Level: 91 Sodium Level: 140 Potassium Level: 3.9 BUN: 7.0 L Creatinine Lvl (s): 0.54 Assessment/Plan 21 yr F 26 weeks with PMH Epilepsy s/p VNS admitted with seizure like activity. History obtained from medical records and documentation as well as from the patient and her mother. Per patient she has been having seizures since the age of 8 years, sees epilepsy specialist from [facility], at baseline he is on Keppra 1500 mg twice daily, zonisamide 300 mg nightly and 200 mg every morning, Vimpat 200 mg twice daily, Klonopin 0.5 mg as needed. Per patient and her mother she does haveintermittent seizure episodes where she stares off into space, at present she has been having seizures where she would lose her tone and fall. Per mother she had about 3 episodes of generalized clonic seizures in the past. At present patient is at her baseline, denies any focal deficits, headache, dizziness, visual symptoms, speech disturbances or sensory loss. UA on admission showed moderate LE,WBC 15-25, +4 bacteria. Impressions: Seizure H/O Epilepsy s/p VNS UTI Plan: -Continue Vimpat, Zonegran and Klonopin at home dose -May increase Keppra to 1750 mg PO BID. Patient tolerating medication well -Labs reviewed -Patient to follow up with her Neurologist in 1 week as outpatient. -Defer management of UTI to admitting team -Infection may lower seizure threshold -Patient counseled to be compliant with AEDs -Avoid medications like Wellbutrin and Tramadol which can lower seizure threshold -Seizure precautions discussed in detail. Patient counseled not climb on ladders, heights, roofs, patient counseled not to swim alone, patient counseled not to work with sharp objects, SUDEP risks discussed, avoid sleep deprivation, excessive alcohol consumption, avoid using bath tubs and use shower for bathing. -Patient counseled not to drive for 6 months and would need clearance from outpatient neurologist prior to driving. -Case d/w mother in detail, all questions were answered. -GI/DVT prophylaxis -PT/OT/ST -Fall precautions -Further medical management per medical team -Case discussed with hospitalist medical team -Patient counseled the risks and health hazards of smoking, excessive alcohol intake, marijuana/cocaine/drug abuse and patient counseled not to smoke cigarettes, drink excessive alcohol as well as not to smoke marijuana. Patient understands the same. -Please call with questions if any. -Thank you for allowing us to participate in patients care and management. -All questions were answered -Will sign off at present. Please call with questions if any in the interim. This note has been generated using [employer] dictation software. It may contain incorrect words, punctuation's and spellings that were not noted in the review of the note prior to signing. Problem List/Past Medical History Ongoing Historical No qualifying data Procedure/Surgical History No qualifying data available. Medications Inpatient Bolus LR 500 mL, 500 mL, IV Bolus, AsDirected, PRN folic acid, 4 mg= 4 tab(s), Oral, qDay Keppra, 1500 mg= 2 tab(s), Oral, BID KlonoPIN, 0.5 mg= 1 tab(s), Oral, AsDirected, PRN lacosamide, 200 mg= 2 tab(s), Oral, BID zonisamide, 300 mg= 3 cap(s), Oral, qHS zonisamide, 200 mg= 2 cap(s), Oral, qAM Home cephalexin 500 mg oral capsule, 500 mg= 1 cap(s), Oral, QID folic acid, qDay Keppra 500 mg oral tablet, 1500 mg= 3 tab(s), Oral, BID KlonoPIN 0.5 mg oral tablet, 0.5 mg= 1 tab(s), Oral, PRN lacosamide, 200 mg, BID zonisamide 100 mg oral capsule, 300 mg= 3 cap(s), Oral, qHS zonisamide 100 mg oral capsule, 200 mg= 2 cap(s), Oral, qAM Allergies Depakote Immunizations No qualifying data available. Digitally Signed by JANY BARNARD MD on 07/11/2022 11:19 AM [id number] Anesthesiology Consult note Patient: VIC WARE Age: 21 years Sex: Female : 2000 Associated Diagnoses: None Author: ANCELMO CALABRESE Preoperative Information Time of last food or liquid consumption: 07/11/2022 07:00:00 Anesthesia history Patient's history: negative. Family's history: negative. Review of Systems Ear/Nose/Mouth/Throat: Negative. Respiratory: Negative. Cardiovascular: Negative. Gastrointestinal: Heartburn. Genitourinary: Negative. Endocrine: Negative. Musculoskeletal: Negative. Integumentary: Negative. Neurologic: Negative, history of epilepsy, last seizure 07/10, admitted to antepartum for observation. Reproductive: Para Scoring , Week's Gestation 26.3, EDC 10/14/2022. Tubal: No. Health Status Allergies: Allergic Reactions (Selected) Severity Not Documented Depakote- No reactions were documented., Allergies (1) ActiveReaction DepakoteNone Documented Current medications: (Selected) Inpatient Medications Ordered Bolus LR 500 mL: 500 mL, IV Bolus, AsDirected, PRN: Other (see order comments) Keppra: 1,500 mg, 2 tab(s), Oral, BID KlonoPIN: 0.5 mg, 1 tab(s), Oral, AsDirected, PRN: Seizures LR 1,000 mL: 50 mL/hr, Intravenous folic acid: 4 mg, 4 tab(s), Oral, qDay lacosamide: 200 mg, 2 tab(s), Oral, BID zonisamide: 200 mg, 2 cap(s), Oral, qAM zonisamide: 300 mg, 3 cap(s), Oral, qHS Prescriptions Prescribed cephalexin 500 mg oral capsule: 500 mg, 1 cap(s), Oral, QID, for 5 day(s), 20 cap(s), 0 Refill(s) Documented Medications Documented Keppra 500 mg oral tablet: 1,500 mg, 3 tab(s), Oral, BID, 0 Refill(s) KlonoPIN 0.5 mg oral tablet: 0.5 mg, 1 tab(s), Oral, PRN: Seizures, 0 Refill(s) folic acid: qDay, 0 Refill(s) lacosamide: 200 mg, BID, 0 Refill(s) zonisamide 100 mg oral capsule: 200 mg, 2 cap(s), Oral, qAM, 0 Refill(s) zonisamide 100 mg oral capsule: 300 mg, 3 cap(s), Oral, qHS, 0 Refill(s), Medications (8) Active Scheduled: (5) folic acid 1 mg tablet 4 mg 4 tab(s), Oral, qDay lacosamide 100 mg tablet 200 mg 2 tab(s), Oral, BID levETIRAcetam 750 mg tablet 1,500 mg 2 tab(s), Oral, BID zonisamide 100 mg Capsule 300 mg 3 cap(s), Oral, qHS zonisamide 100 mg Capsule 200 mg 2 cap(s), Oral, qAM Continuous: (1) Lactated Ringers 1,000 mL 1,000 mL, Intravenous, 50 mL/hr PRN: (2) clonazePAM 0.5 mg tablet 0.5 mg 1 tab(s), Oral, AsDirected Lactated Ringers Injection 500 mL * Bolus * 500 mL, IV Bolus, AsDirected Problem list: Medical / SNOMED CT 063846723 / Confirmed / SNOMED CT [id number] / Confirmed, Active Problems (3) Epilepsy Histories Past Medical History: No active or resolved past medical history items have been selected or recorded. Family History: No family history items have been selected or recorded. Procedure history: No active procedure history items have been selected or recorded. Social History Social & Psychosocial Habits No Data Available . Physical Examination Vital Signs 07/11/2022 8:51 EST Temperature Oral 36.9 DegC 07/11/2022 6:30 EST Heart Rate Monitored 90 bpm Systolic Blood Pressure Non-Invasive 105 mmHg Diastolic Blood Pressure Non-Invasive 69 mmHg 07/11/2022 5:30 EST Heart Rate Monitored 57 bpm LOW Systolic Blood Pressure Non-Invasive 112 mmHg Diastolic Blood Pressure Non-Invasive 60 mmHg 07/11/2022 5:11 EST Temperature Oral 36.7 DegC Heart Rate Monitored 90 bpm Respiratory Rate 18 br/min Systolic Blood Pressure Non-Invasive 117 mmHg Diastolic Blood Pressure Non-Invasive 77 mmHg 07/11/2022 4:15 EST Temperature Oral 36.8 DegC Heart Rate Monitored 93 bpm Respiratory Rate 16 br/min Systolic Blood Pressure Non-Invasive 104 mmHg Diastolic Blood Pressure Non-Invasive 65 mmHg 07/11/2022 1:59 EST Temperature Oral 36.7 DegC Heart Rate Monitored 103 bpm HI Respiratory Rate 16 br/min Systolic Blood Pressure Non-Invasive 112 mmHg Diastolic Blood Pressure Non-Invasive 58 mmHg LOW 07/11/2022 1:44 EST Temperature Oral 36.6 DegC Heart Rate Monitored 108 bpm HI Respiratory Rate 16 br/min Systolic Blood Pressure Non-Invasive 129 mmHg Diastolic Blood Pressure Non-Invasive 78 mmHg 07/11/2022 1:39 EST Temperature Oral 36.6 DegC Heart Rate Monitored 98 bpm Respiratory Rate 16 br/min Systolic Blood Pressure Non-Invasive 119 mmHg Diastolic Blood Pressure Non-Invasive 77 mmHg 07/11/2022 1:24 EST Temperature Oral 36.5 DegC Heart Rate Monitored 90 bpm Respiratory Rate 16 br/min Systolic Blood Pressure Non-Invasive 117 mmHg Diastolic Blood Pressure Non-Invasive 75 mmHg 07/10/2022 23:05 EST Temperature Oral 36.3 DegC 07/10/2022 23:04 EST Heart Rate Monitored 97 bpm Systolic Blood Pressure Non-Invasive 112 mmHg Diastolic Blood Pressure Non-Invasive 66 mmHg 07/10/2022 20:40 EST Temperature Temporal Artery 36.1 DegC Peripheral Pulse Rate 115 bpm HI Respiratory Rate 16 br/min Systolic Blood Pressure Non-Invasive 119 mmHg Diastolic Blood Pressure Non-Invasive 79 mmHg Blood Pressure Location Right arm Reason For Taking VItal Signs Routine Vital Signs(last 24 hrs) Last Charted Temp Oral36.9 DegC (JUL 11 08:51) Heart Rate [id number] bpm (JUL 11 06:30) Resp Rate 18 br/min (JUL 11 05:11) CSE406 mmHg (JUL 11 06:30) DBP69 mmHg (JUL 11 06:30) BMI33.59 (JUL 11 04:12) Measurements from flowsheet : Measurements 07/11/2022 4:12 EST Height 160.0 cm Admission Weight 86.0 kg [place] Body Weight 52.38 kg BSA Admission 1.89 Body Mass Index 33.59 kg/m2 07/10/2022 22:57 EST Height 160 cm Admission Weight 86 kg [place] Body Weight 52.38 kg BSA Admission 1.89 Body Mass Index 33.59 kg/m2 Pain assessment: Pain Assessment 07/11/2022 5:11 EST Primary Pain Location Headache Primary Pain Intensity 5 Primary Pain Nonverbal Response Nods Yes Pain Scale Type 0-10 Pain scale 07/11/2022 4:36 EST Primary Pain Location Headache Primary Pain Intensity 5 Primary Pain Nonverbal Response Nods Yes Pain Scale Type 0-10 Pain scale 07/10/2022 22:57 EST Pain Scale Type Adult 0-10 Pain scale Primary Pain Intensity 0 Pain Symptoms No 07/10/2022 22:36 EST Pain Scale Assessment 0-10 Pain scale Primary Pain Intensity 0 Pain Symptoms No 07/10/2022 20:40 EST Primary Pain Location Head Primary Pain Intensity 5 Primary Pain Nonverbal Response Nods Yes Pain Scale Type 0-10 Pain scale . General: Alert and oriented. Airway: Normal temporomandibular joint mobility. Mallampati classification: II (soft palate, fauces, uvula visible). Dentition Evaluation: Intact, Own teeth. Neurologic: Alert, Oriented. Review / Management Results review: Labs (Last four charted values) WBC 10.7(JUL 11) Hgb L 10.7(JUL 11) Hct L 32.3(JUL 11) Plt 261(JUL 11) Na 140(JUL 11) K 3.9(JUL 11) CO2 L 20(JUL 11) Cl 110(JUL 11) Cr 0.54(JUL 11) BUN L 7.0(JUL 11) Glucose 91(JUL 11) Ca L 8.2(JUL 11) , Lab results 07/11/2022 9:22 EST folic acid 4 mg mg levETIRAcetam 1500 mg mg zonisamide 200 mg mg 07/11/2022 8:52 EST Activity Status ADL Sleeps intermittently Standard Safety Safety level maintained 07/11/2022 8:51 EST Temperature Oral 36.9 DegC Antecubital Right 07/10/2022 20 gauge Peripheral IV Activity: Assessed Peripheral IV Dressing Condition: Clean, Dry, Intact Peripheral IV Dressing Activity: Transparent dressing Peripheral IV Line Status/Patency: Continuous infusion Peripheral IV Site Condition: No complications Peripheral IV Equipment: IV Pump Violence Risk Confused No Violence Risk Irritable No Violence Risk Boisterous No Violence Risk Verbal Threats No Violence Risk Physical Threats No Violence Risk Attacking Objects No Violence Risk Predictor Score 0 Violence Risk Intervention None 07/11/2022 7:30 EST Activity Status ADL Sleeping 07/11/2022 7:09 EST UA Specimen Type Clean Catch UA Color Straw UA Appear Hazy UA Spec Grav 1.010 UA Glucose Negative mg/dL UA Bili Negative UA Ketones Negative mg/dL UA Blood Negative UA pH 6.0 UA Protein Negative mg/dL UA Urobilinogen 0.2 E.U./dL UA Nitrite Negative UA Leuk Est Moderate UA RBC Rare /HPF UA WBC 5-10 /HPF UA Squam Epithelial 0-2 /HPF UA Mucous 1+ /HPF UA Bacteria 2+ /HPF 07/11/2022 7:00 EST Uterine Contraction Monitoring Method External toco Uterine Activity Not eric Baby A FHR Baseline: 130 bpm FHR Baseline Variability: Minimal variability FHR Accelerations: Absent FHR Deceleration: Absent FHR Monitoring Method: External US transducer Standard Safety ID band on, Allergy Band on, Bed in low position, Wheels locked, Upper/Half-Length side-rails up, Phone within reach, personal items within reach, Assistive devices within reach, Visitor at bedside, Safety level maintained, Night light, Hazards removed from floor 07/11/2022 6:30 EST Heart Rate Monitored 90 bpm Systolic Blood Pressure Non-Invasive 105 mmHg Diastolic Blood Pressure Non-Invasive 69 mmHg Oxygen Saturation 93 % 07/11/2022 6:24 EST Lactated Ringers Injection Begin Bag 1,000 mL mL 07/11/2022 6:00 EST Uterine Contraction Monitoring Method External toco Uterine Activity Not eric Baby A FHR Baseline: 135 bpm FHR Baseline Variability: Minimal variability FHR Accelerations: Absent FHR Deceleration: Absent FHR Monitoring Method: External US transducer Activity Status ADL Awake, Resting Standard Safety ID band on, Allergy Band on, Call device within reach, Bed in low position, Wheels locked, Upper/Half-Length side-rails up, Phone within reach, Safety level maintained 07/11/2022 5:39 EST Monitoring Annotations Ultrasound in room 07/11/2022 5:[address] Mclaughlin orders to D/C magnesium at this time 07/11/2022 5:30 EST Monitoring Annotations Pt talking on the phone with her mother, bending herarm 07/11/2022 5:30 EST Heart Rate Monitored 57 bpm LOW Systolic Blood Pressure Non-Invasive 112 mmHg Diastolic Blood Pressure Non-Invasive 60 mmHg Oxygen Saturation 99 % 07/11/2022 5:25 EST magnesium sulfate Begin Bag 40 mL gram(s) Lactated Ringers Injection Begin Bag 1,000 mL mL SW Premix Diluent Begin Bag 500 mL mL 07/11/2022 5:11 EST Temperature Oral 36.7 DegC Heart Rate Monitored 90 bpm Respiratory Rate 18 br/min Systolic Blood Pressure Non-Invasive 117 mmHg Diastolic Blood Pressure Non-Invasive 77 mmHg Primary Pain Location Headache Primary Pain Intensity 5 Primary Pain Nonverbal Response Nods Yes Pain Scale Type 0-10 Pain scale Dorsalis Pedis Pulse, Left 2+ Normal Dorsalis Pedis Pulse, Right 2+ Normal Respirations Unlabored Respiratory Pattern Regular Oxygen Therapy Room air Bowel Sounds All Quadrants Present Support Person Present Skin Temperature Warm Skin Description [place] Skin Integrity Intact Antecubital Right 07/10/2022 20 gauge Peripheral IV Activity: Assessed Peripheral IV Dressing Condition: Clean, Dry, Intact Peripheral IV Dressing Activity: Transparent dressing Peripheral IV Line Status/Patency: Continuous infusion Peripheral IV Site Condition: No complications Peripheral IV Equipment: IV Pump Neurological Language Able to speak clearly Neurological Symptoms Headache Characteristics of Communication Appropriate Strength All Extremities Strong Tone All Extremities Normal Violence Risk Confused No Violence Risk Irritable No Violence Risk Boisterous No Violence Risk Verbal Threats No Violence Risk Physical Threats No Violence Risk Attacking Objects No Violence Risk Predictor Score 0 Violence Risk Intervention None Violence Risk Current Interventions None Activity Status ADL Awake, Resting Standard Safety ID band on, Allergy Band on, Call device within reach, Bed in low position, Wheels locked, Upper/Half-Length side-rails up, Phone within reach, Safety level maintained 07/11/2022 5:05 EST WBC 10.7 10^3/mcL RBC 3.78 10^6/mcL LOW Hgb 10.7 G/dL LOW Hct 32.3 % LOW MCV 85.5 fL MCH 28.4 pg MCHC 33.2 G/dL RDW 13.9 % Platelet 261 10^3/mcL MPV 8.8 fL Neutrophil % 75.7 % HI Lymphocyte % 17.1 % LOW Monocyte % 5.3 % Eosinophil % 1.3 % Basophil % 0.6 % Neutrophil, Absolute 8.1 10^3/mcL Lymphocyte, Absolute 1.8 10^3/mcL Monocyte, Absolute 0.6 10^3/mcL Eosinophil, Absolute 0.1 10^3/mcL Basophil, Absolute 0.1 10^3/mcL Glucose Level 91 mg/dL Sodium Level 140 mEq/L Potassium Level 3.9 mEq/L Chloride 110 mEq/L CO2 20 mEq/L LOW Electrolyte Balance 10.0 mEq/L BUN 7.0 mg/dL LOW Creatinine Lvl (s) 0.54 mg/dL BUN/Creatinine Ratio 13.0 ratio Calcium Lvl 8.2 mg/dL LOW Total Protein 5.8 G/dL Albumin Level 2.6 G/dL LOW Globulin 3.2 G/dL A/G Ratio 0.8 ratio LOW Bili Total 0.20 mg/dL Alk Phos 117 U/L AST/SGOT 14 U/L ALT/SGPT 12 U/L LDH 188 U/L GFR Non- >60 ml/min/1.73sqm NA GFR >60 ml/min/1.73sqm NA ABO/Rh Interp A POS ABSC Interp (Gel) Negative ABSC Creatinine Clearance Calc 137.42 mL/min 07/11/2022 5:00 EST Uterine Contraction Monitoring Method External toco Uterine Activity Not eric Baby A FHR Baseline: 135 bpm FHR Baseline Variability: Moderate variability FHR Accelerations: Absent FHR Deceleration: Present FHR Deceleration Description: Variable FHR Monitoring Method: External US transducer 07/11/2022 4:48 EST OB History and Physical Free Text Note (Modified) 07/11/2022 4:36 EST Primary Pain Location Headache Primary Pain Intensity 5 Primary Pain Nonverbal Response Nods Yes Pain Scale Type 0-10 Pain scale 07/11/2022 4:15 EST Temperature Oral 36.8 DegC Heart Rate Monitored 93 bpm Respiratory Rate 16 br/min Systolic Blood Pressure Non-Invasive 104 mmHg Diastolic Blood Pressure Non-Invasive 65 mmHg Oxygen Therapy Room air Oxygen Saturation 99 % 07/11/2022 4:12 EST Designated Person #1 We May Share DELVIN Ware [phone] Designated Person #1 Relationship Mother Designated Person #2 We May Share DELVIN Ware [phone] Designated Person #2 Relationship Father Additional Designated Person Share PHI Aleyda Ramirez Privacy Restrictions Requested None Height 160.0 cm Admission Weight 86.0 kg [place] Body Weight 52.38 kg BSA Admission 1.89 Body Mass Index 33.59 kg/m2 Expected Outcome Live Patient Type Inpatient Thrombosis Risk Factors NA Thrombosis Risk Factor Add'l Assessment NA Thrombosis Risk Score 0 Status Yes Risk Factors, Antepartum Current Preg None Movement Present Blood Type, External Unknown Rubella, External Unknown HIV Antibodies, External Unknown Group B Strep, External Unknown Hepatitis B, External Unknown RPR, External Unknown Vaginal bleeding No PPH Risk Low risk for hemorrhage PPH Low Risk Factors Bunn Feeding Breast milk Anesthesia/Pain Medication During Labor Epidural/Spinal Baby For Adoption No Surrogate No Tubal Sterilization Planned No Discharge Physician N/A Written Plan No WIC Participant Yes Safe Sleep Environment for Baby N/A Safe Sleep Environment Outside Home N/A Maternal Transport Yes Transferring Hospital [facility] Thoughts of Harming Others - History No Thoughts of Suicide - History No Coping Effective Emotional Abuse History Denies Physical Abuse History Denies Sexual Abuse Denies Hospital Clergy to Visit Patient Verbalizes No Spiritual Needs Financial Concerns Re: Hospital/Disch No Living Situation Home independently Current Home Treatments None Professional Skilled Services None Special Services and Community Resources None Advanced Directives Unable to obtain Infectious Disease Symptoms Patient states no symptoms Infectious Disease Recent Exposure No Alcohol and Drug Use No Employee of Institutional Living No Health Care Employee No History of Exposure to TB No History of Positive Chest X-Ray for TB No History of Positive TB Skin Test No Homeless No Known Immunosuppression No Recent Immigrant No Resident of Institutional Living No Bloody Sputum No Fatigue No Fever No Loss of Appetite No Night Sweats No Persistent Cough > 3 Weeks No Weight Loss No Safety Brochure Information Reviewed Yes [facility] Video Viewed Yes Teaching Evaluation Returns demonstrations correctly Preferred Written Language Australian Preferred Spoken Language Australian Chief Complaint Transport for seizure from [place] Mode of Arrival Stretcher Accompanied by Significant other Information Given by Patient Emergency Contact Number Tomasz Ramirez [phone] Belongings At Bedside Cell phone, Tong Setter Personal Home Medications Received No home medications were brought in Belongings Sent Home None Belongings Sent To Security None Discharge To, Anticipated Home independently Other Anticipated Needs After Discharge No Anticoagulants Taken In Past 6 Wks. No Prev Test Positive/Diagnosis w/COVID-19 No Current Quarantine/Isolated any Illness No Any Contact with Sick Animals/Birds No Traveled Anywhere in Last 30 Days No Influenza Vaccine Need No prior receipt of vaccine Influenza Risk Factors age 6 months and older Influenza Vaccine Contraindications None Forego Influenza Vaccination Patient/Caregiver refused vaccine No Able To Drink Order Detail Yes Able To Sign Consents Order Detail Yes Code Status Order Detail Full code IV Order Detail No Dialysis Schedule Order Detail N/A Has Diabetes Order Detail No Isolation Precautions Order Detail None Nurse Collect Order Detail 1 Oxygen Order Detail No Order Detail Yes Prior Valve Replacement Order Detail No Transport Mode Order Detail Patient bed Anesthesia/Transfusions Prior anesthesia Admission Note-Nursing Patient History OB (Modified) 07/11/2022 2:37 EST Transfer To/From Other: [place] [facility] to [facility] L&D Mode of Arrival Ambulatory Patient's Condition for Transfer Stable, Patient is not in active labor Date/Time Transfer Accepted 07/11/2022 0:45 Nurse Receiving Report Jennifer (Charge Nurse) Date/Time Nurse Received Report 07/11/2022 2:28 07/11/2022 2:14 EST All Lobes Breath Sounds Clear, Equal Left Arm Reflex 2+ Right Arm Reflex 2+ Clonus Not present Safety Check, Magnesium Sulfate Calcium gluconate available on unit, Side rails Comfort Measures, Magnesium Sulfate Cool washcloth, Emesis basin given Patient Tolerance, Magnesium Sulfate Hot flash, Nausea Shortness of Breath No Level of Consciousness Alert Left Knee Reflex 2+ Right Knee Reflex 2+ Orientation Oriented x 4 07/11/2022 2:00 EST Uterine Contraction Monitoring Method External toco Uterine Activity Not eric Baby A FHR Baseline: 140 bpm FHR Baseline Variability: Moderate variability FHR Accelerations: Absent FHR Deceleration: Present FHR Deceleration Description: Variable 07/11/2022 1:59 EST Temperature Oral 36.7 DegC Heart Rate Monitored 103 bpm HI Respiratory Rate 16 br/min Systolic Blood Pressure Non-Invasive 112 mmHg Diastolic Blood Pressure Non-Invasive 58 mmHg LOW All Lobes Breath Sounds Clear, Equal Oxygen Therapy Room air Oxygen Saturation 97 % Left Arm Reflex 2+ Right Arm Reflex 2+ Clonus Not present Safety Check, Magnesium Sulfate Calcium gluconate available on unit, Side rails Comfort Measures, Magnesium Sulfate Cool washcloth, Emesis basin given Patient Tolerance, Magnesium Sulfate Hot flash, Nausea Shortness of Breath No Level of Consciousness Alert Left Knee Reflex 2+ Right Knee Reflex 2+ Orientation Oriented x 4 07/11/2022 1:58 EST magnesium sulfate Begin Bag 40 mL gram(s) SW Premix Diluent Begin Bag 500 mL mL 07/11/2022 1:45 EST Baby A Heart Tone: 135 07/11/2022 1:44 EST Temperature Oral 36.6 DegC Heart Rate Monitored 108 bpm HI Respiratory Rate 16 br/min Systolic Blood Pressure Non-Invasive 129 mmHg Diastolic Blood Pressure Non-Invasive 78 mmHg All Lobes Breath Sounds Clear, Equal Oxygen Therapy Room air Oxygen Saturation 99 % Left Arm Reflex 2+ Right Arm Reflex 2+ Clonus Not present Safety Check, Magnesium Sulfate Calcium gluconate available on unit, Side rails Comfort Measures, Magnesium Sulfate Cool washcloth, Emesis basin given Patient Tolerance, Magnesium Sulfate Hot flash, Nausea Shortness of Breath No Level of Consciousness Alert Left Knee Reflex 2+ Right Knee Reflex 2+ Orientation Oriented x 4 07/11/2022 1:39 EST Temperature Oral 36.6 DegC Heart Rate Monitored 98 bpm Respiratory Rate 16 br/min Systolic Blood Pressure Non-Invasive 119 mmHg Diastolic Blood Pressure Non-Invasive 77 mmHg All Lobes Breath Sounds Clear, Equal Oxygen Therapy Room air Oxygen Saturation 98 % Left Arm Reflex 2+ Right Arm Reflex 2+ Clonus Not present Safety Check, Magnesium Sulfate Calcium gluconate available on unit, Side rails Comfort Measures, Magnesium Sulfate Cool washcloth, Emesis basin given Patient Tolerance, Magnesium Sulfate Hot flash, Nausea Shortness of Breath No Level of Consciousness Alert Left Knee Reflex 2+ Right Knee Reflex 2+ Orientation Oriented x 4 07/11/2022 1:30 EST Uterine Contraction Monitoring Method External toco Uterine Activity Not eric Baby A FHR Baseline: 140 bpm FHR Baseline Variability: Moderate variability FHR Accelerations: Absent FHR Deceleration: Absent 07/11/2022 1:24 EST Temperature Oral 36.5 DegC Heart Rate Monitored 90 bpm Respiratory Rate 16 br/min Systolic Blood Pressure Non-Invasive 117 mmHg Diastolic Blood Pressure Non-Invasive 75 mmHg All Lobes Breath Sounds Clear, Equal Oxygen Therapy Room air Oxygen Saturation 97 % Left Arm Reflex 2+ Right Arm Reflex 2+ Clonus Not present Safety Check, Magnesium Sulfate Calcium gluconate available on unit, Side rails Comfort Measures, Magnesium Sulfate Cool washcloth, Emesis basin given Patient Tolerance, Magnesium Sulfate Hot flash, Nausea Shortness of Breath No Level of Consciousness Alert Left Knee Reflex 2+ Right Knee Reflex 2+ Orientation Oriented x 4 07/11/2022 1:18 EST All Lobes Breath Sounds Clear, Equal Left Arm Reflex 2+ Right Arm Reflex 2+ Clonus Not present Safety Check, Magnesium Sulfate Calcium gluconate available on unit, Side rails Comfort Measures, Magnesium Sulfate Cool washcloth, Emesis basin given Patient Tolerance, Magnesium Sulfate Tolerated well Shortness of Breath No Level of Consciousness Alert Left Knee Reflex 2+ Right Knee Reflex 2+ Orientation Oriented x 4 magnesium sulfate 4 gram(s) gram(s) 07/11/2022 1:09 EST OB Discharge Summary Transfer Note -- squad to [facility] 07/11/2022 1:00 EST Uterine Contraction Monitoring Method External toco Uterine Activity Not eric Baby A FHR Baseline: 145 bpm FHR Baseline Variability: Moderate variability FHR Accelerations: Present FHR Deceleration: Absent 07/11/2022 0:35 EST Notify date/time 07/11/2022 0:35 Provider Notified ANDREI TOSCANO DO Notification Method Phone Information Communicated Nurse communication Details Communicated Dr. Toscano called unit to notify of Pt transfer. 07/11/2022 0:30 EST Uterine Contraction Monitoring Method External toco Uterine Activity Not eric Baby A FHR Baseline: 145 bpm FHR Baseline Variability: Moderate variability FHR Accelerations: Present FHR Deceleration: Absent 07/11/2022 0:29 EST Lactated Ringers Injection Begin Bag 1,000 mL mL 07/11/2022 0:12 EST Notify date/time 07/11/2022 0:12 Provider Notified ANDREI TOSCANO DO Notification Method Phone Information Communicated Patient arrival, Nurse communication Details Communicated Dr Toscano notified of pt arrival, FHR and history. Orders received for IV fluid Notification Outcome Orders received 07/11/2022 0:00 EST Uterine Contraction Monitoring Method External toco Uterine Activity Not eric Baby A FHR Baseline: 145 bpm FHR Baseline Variability: Moderate variability FHR Accelerations: Present FHR Deceleration: Absent Antecubital Right 07/10/2022 20 gauge Peripheral IV Activity: Assessed Peripheral IV Dressing Condition: Clean, Dry, Intact Peripheral IV Dressing Activity: Transparent dressing Peripheral IV Line Status/Patency: Continuous infusion Peripheral IV Site Condition: No complications Peripheral IV Equipment: Manual, Extension set, Stopcock, IV Pump, PRN Adaptor 07/10/2022 23:43 EST Uterine Contraction Monitoring Method Date\Time Correction Uterine Activity Date\Time Correction Baby A FHR Monitoring Method: Date\Time Correction Heart Tone: Date\Time Correction 07/10/2022 23:30 EST Uterine Contraction Monitoring Method External toco Uterine Activity Not eric Baby A FHR Baseline: 145 bpm FHR Baseline Variability: Moderate variability FHR Accelerations: Absent FHR Deceleration: Present FHR Deceleration Description: Variables, intermittent periodic FHR Deceleration Intervention: Turn to left side 07/10/2022 23:19 EST Monitoring Annotations Pt to left tilt; Primary nurse at bedside 07/10/2022 23:05 EST Temperature Oral 36.3 DegC 07/10/2022 23:04 EST Heart Rate Monitored 97 bpm Systolic Blood Pressure Non-Invasive 112 mmHg Diastolic Blood Pressure Non-Invasive 66 mmHg Oxygen Therapy Room air 07/10/2022 23:02 EST OB Screen /Para Para 0 (0) OB Screen Gestational Age < 35 weeks (2) OB Screen Cervical Dilatation Cervical exam not done OB Screen Cervical Effacement Cervical exam not done OB Screen Station Cervical exam not done OB Screen Cervical Position Cervical exam not done OB Screen Presentation Cervical exam not done OB Screen Contraction Pattern None OB Screen Contraction Strength Not applicable OB Screen Membranes Intact (0) OB Screen FHR Variability Moderate (0) OB Screen Duration of Fastest Labor Not applicable OB Screen Travel Time 0-30 minutes (0) OB Screen Previous Uterine Scar None (0) OB Screen Pain None (0) OB Screen Pain Unrelated to Contractions None OB Screen Total Score 2 Presence of decelerations Yes Vaginal bleeding No Prolapsed Cord or Part No Persistent Maternal BP>140/90 No Persistent Headache No Visual Disturbances No Epigastric Pain No Proteinuria > 2+ No with dilation of 5cm or > No Non-reassuring FHR pattern No FHR Baseline < 110 or > 160 bpm No Decreased Movement/NR NST No No Care in Active Labor No Purulent Vaginal Discharge No Maternal Temp of > 38 degrees Celsius No Membranes Intact Yes Trauma OB Screen Yes OB Visit Outcome Discharged Method of Certification Verbal/Read Back Date/Time of Certification 07/11/2022 0:35 Certifying Provider ANDREI TOSCANO DO OB Certification Other: Pt transferred to [facility] main Chief Complaint had a seizure and fell. I am 26 weeks . my back, head and belly hurt [place] OB Screen Note OB Screening [place] (Modified) OB Screening Form [place] OB Screening Form [place] (Modified) 07/10/2022 22:57 EST Height 160 cm Admission Weight 86 kg [place] Body Weight 52.38 kg BSA Admission 1.89 Body Mass Index 33.59 kg/m2 Pain Scale Type Adult 0-10 Pain scale Primary Pain Intensity 0 Pain Symptoms No Expected Outcome Live Status Yes Maternal Transport No Thoughts of Harming Others - History No Thoughts of Suicide - History No Emotional Abuse History Denies Physical Abuse History Denies Sexual Abuse Denies Advanced Directives Unable to obtain Infectious Disease Symptoms Patient states no symptoms Infectious Disease Recent Exposure No Alcohol and Drug Use No Employee of Institutional Living No Health Care Employee No History of Exposure to TB No History of Positive Chest X-Ray for TB No History of Positive TB Skin Test No Homeless No Known Immunosuppression No Recent Immigrant No Resident of Institutional Living No Bloody Sputum No Fatigue No Fever No Loss of Appetite No Night Sweats No Persistent Cough > 3 Weeks No Weight Loss No Preferred Written Language Australian Preferred Spoken Language Australian Chief Complaint had a seizure and fell. I am 26 weeks . my back, head and belly hurt Mode of Arrival Ambulatory Accompanied by Significant other Information Given by Patient Emergency Contact Number Tomasz [phone] Belongings At Bedside Cell phone, Tong Setter, Coat, Shoes Personal Home Medications Received No home medications were brought in Belongings Sent Home None Belongings Sent To Security None Prev Test Positive/Diagnosis w/COVID-19 No Current Quarantine/Isolated any Illness No Any Contact with Sick Animals/Birds No Traveled Anywhere in Last 30 Days No Influenza Vaccine Need No prior receipt of vaccine Influenza Risk Factors age 6 months and older Influenza Vaccine Contraindications None Forego Influenza Vaccination Patient/Caregiver refused vaccine No Able To Drink Order Detail Yes Able To Sign Consents Order Detail Yes Code Status Order Detail Full code IV Order Detail Yes Dialysis Schedule Order Detail N/A Has Diabetes Order Detail No Isolation Precautions Order Detail None Nurse Collect Order Detail 0 Oxygen Order Detail No Order Detail Yes Prior Valve Replacement Order Detail No Transport Mode Order Detail Ambulatory Admission Note-Nursing Patient History OB Triage 07/10/2022 22:56 EST OBHx 1 07/10/2022 22:43 EST Uterine Contraction Monitoring Method External toco (Modified) Uterine Activity Not eric (Modified) Baby A FHR Monitoring Method: monitoring explained, External US transducer (Modified) Heart Tone: 145 (Modified) 07/10/2022 22:37 EST Patient Information Note patient discharged from ED and walked up to OB 07/10/2022 22:36 EST Pain Scale Assessment 0-10 Pain scale Primary Pain Intensity 0 Pain Symptoms No Respiratory Pattern Regular Level of Consciousness Alert Affect/Behavior Appropriate, Calm Orientation Oriented x 4 PEWS Behavior Assessment 0 PEWS Cardiovascular Assessment 0 PEWS Extra 0 PEWS Respiratory Assessment 0 PEWS Score 0 Individuals Taught Patient Learning Readiness low motivation level Barriers to Learning Cognitive deficits Teaching Method Explanation, Printed materials Teaching Evaluation Needs reinforcement Accompanied by Significant other Discharged to Home with family care Mode of Discharge Ambulatory Discharge Transportation Private vehicle Activity Assistance Independent Assistive Device None 07/10/2022 22:31 EST cephalexin 500 mg mg 07/10/2022 22:28 EST Depart Summary ED ED/Urgent Care Discharge Instructions 07/10/2022 22:28 EST Pat Edu Pat Edu (Modified) 07/10/2022 21:45 EST WBC 10.4 10^3/mcL RBC 3.86 10^6/mcL LOW Hgb 11.0 G/dL LOW Hct 32.9 % LOW MCV 85.1 fL MCH 28.5 pg MCHC 33.5 G/dL RDW 14.0 % Platelet 269 10^3/mcL MPV 8.2 fL Monocyte Distribution Width 18.11 Neutrophil % 71.2 % Lymphocyte % 19.4 % Monocyte % 7.3 % Eosinophil % 1.4 % Basophil % 0.7 % Neutrophil, Absolute 7.4 10^3/mcL HI Lymphocyte, Absolute 2.0 10^3/mcL Monocyte, Absolute 0.8 10^3/mcL Eosinophil, Absolute 0.1 10^3/mcL Basophil, Absolute 0.1 10^3/mcL Glucose Level 87 mg/dL Sodium Level 136 mmol/L Potassium Level 3.8 mmol/L Chloride 105 mmol/L CO2 23 mmol/L Electrolyte Balance 8.0 mEq/L BUN 8 mg/dL Creatinine Lvl (s) 0.59 mg/dL BUN/Creatinine Ratio 14 ratio Calcium Lvl 8.5 mg/dL Total Protein 5.8 G/dL LOW Albumin Level 2.5 G/dL LOW Globulin 3.3 G/dL NA A/G Ratio 0.8 ratio LOW Bili Total 0.1 mg/dL LOW Alk Phos 118 U/L AST/SGOT 14 U/L ALT/SGPT 17 U/L GFR Non- 130 ml/min/1.73sqm NA GFR 158 ml/min/1.73sqm NA 07/10/2022 21:43 EST Antecubital Right 07/10/2022 20 gauge Peripheral IV Activity: Insert new site Peripheral IV Dressing Condition: Clean, Dry, Intact Peripheral IV Dressing Activity: Transparent dressing Peripheral IV Line Status/Patency: Flushes easily Peripheral IV Site Condition: No complications Peripheral IV Equipment: PRN Adaptor Peripheral IV Number of Attempts: 1 07/10/2022 21:11 EST UA Specimen Type Void UA Color Yellow UA Appear Slightly Cloudy UA Spec Grav 1.020 UA Glucose Negative mg/dL UA Bili Negative UA Ketones Negative mg/dL UA Blood Negative UA pH 7.0 UA Protein Negative mg/dL UA Urobilinogen 0.2 E.U./dL UA Nitrite Negative UA Leuk Est Small UA RBC 0-5 /HPF UA WBC 15-25 /HPF UA Squam Epithelial LOADED /HPF UA Bacteria 4+ /HPF 07/10/2022 20:52 EST [place] [facility] Note ED/Urgent Care Provider Note (Modified) 07/10/2022 20:45 EST Patient Information Note OB notified of patient and stated they would come down and check patient and baby 07/10/2022 20:43 EST Status Yes PAP Smear N/A History of Fall in Last 3 Months [place] Yes Thoughts of Harming Others - History No Thoughts of Harming Yourself - History No - over the past six (6) months or longer Domestic Concerns None Advanced Directives Unable to obtain Individuals Taught Patient Learning Readiness Willing to learn Barriers to Learning None evident Teaching Method Explanation Teaching Evaluation Verbalizes/Nonverbally indicates understanding Preferred Written Language Australian Preferred Spoken Language Australian Chief Complaint had a seizure and fell. I am 26 weeks . my back, head and belly hurt Place Where Injury/Illness Occurred Home Information Given by Patient Belongings At Bedside Discharged with patient Personal Home Medications Received No home medications were brought in Belongings Sent Home None Belongings Sent To Security None Anticoagulants Taken In Past 6 Wks. No Participates in Clinical Trial No No Anesthesia/Transfusions None ED Assessment Note - Nursing ED Patient History Form 07/10/2022 20:40 EST Temperature Temporal Artery 36.1 DegC Peripheral Pulse Rate 115 bpm HI Respiratory Rate 16 br/min Systolic Blood Pressure Non-Invasive 119 mmHg Diastolic Blood Pressure Non-Invasive 79 mmHg Blood Pressure Location Right arm Reason For Taking VItal Signs Routine Primary Pain Location Head Primary Pain Intensity 5 Primary Pain Nonverbal Response Nods Yes Pain Scale Type 0-10 Pain scale BHUPINDER Level 1 No BHUPINDER Level 2 No BHUPINDER Level 3 Many Vital Signs BHUPINDER No Recommended BHUPINDER Level 3 Respirations Unlabored Respiratory Pattern Regular Oxygen Therapy Room air Oxygen Saturation 97 % Neurological Language Able to speak clearly Neurological Symptoms Dizziness Characteristics of Communication Appropriate Level of Consciousness Alert Eye Opening Response [place] Spontaneously Best Motor Response [place] Obeys simple commands Best Verbal Response Char Oriented Char Coma Score 15 KEN Yes Orientation Oriented x 4 Wish To Be No Suicidal Thoughts No Ever Made Plans to End Your Life No Suicide Severity Rating No problems noted Infectious Disease Symptoms Patient states no symptoms Infectious Disease Recent Exposure No Alcohol and Drug Use No Employee of Institutional Living No Health Care Employee No History of Exposure to TB No History of Positive Chest X-Ray for TB No History of Positive TB Skin Test No Homeless No Known Immunosuppression No Recent Immigrant No Resident of Institutional Living No Bloody Sputum No Fatigue No Fever No Loss of Appetite No Night Sweats No Persistent Cough > 3 Weeks No Weight Loss No Preferred Written Language Australian Preferred Spoken Language Australian Tracking Group ED AO Tracking Group Tracking Acuity 3 Mode of Transfer Private vehicle Activity Status ADL Awake Standard Safety ID band on, Call device within reach, Bed in low position Prev Test Positive/Diagnosis w/COVID-19 No Current Quarantine/Isolated any Illness No Any Contact with Sick Animals/Birds No Traveled Anywhere in Last 30 Days No ED Triage Adults ED Triage Adults 07/10/2022 20:35 EST [place] [facility] Note General Medical Problem *ED . Assessment and Plan [place] [employer] (ASA) physical status classification: Class III. Anesthetic Preoperative Plan Anesthetic technique: Epidural. Regional: Epidural. Risks discussed: nausea, vomiting, headache, hypotension, allergic reaction, serious complications,General anesthesia discussed for emergency. Informed consent: signed by patient. Digitally Signed by ANCELMO CALABRESE on 07/11/2022 09:30 AM [id number] [place] HISTORY AND PHYSICIAL TRANSFER NOTE CHIEF COMPLAINT: Intrauterine at 26W 3D gestation, seizure, UTI HISTORY OF PRESENT ILLNESS: This 21 y/o WF, , with SUNG = October 14, 2022 by patient report, presented to the emergency department for evaluation of seizure in . States she has seizures sometimes every day. Pt is not a good historian she states she can't remember when she last had a seizure this bad, but frequently has mini seizures where her eyes flutter. She is currently taking Keppra, lacosamide, Zonegran. States that she had a seizure at approximately 7pm on 07/10/22. She fell down. She is complaining somepain in her back which is in the paralumbar area bilaterally. Also has a mild abdominal pain. Denies any vaginal bleeding or vaginal discharge. She had no symptoms prior to this. She states she is very sure this was a seizure. She does not think she lost consciousness during it. She gets her OB andneurological care through [facility]. States that this episode was witnessed by her father. Denies any numbness or weakness. REVIEW OF SYSTEMS: Constitutional symptoms: No fever, no chills, no weakness, no fatigue. Skin symptoms: No jaundice, no rash. Eye symptoms: No pain, ENMT symptoms: No sore throat, Respiratory symptoms: No shortness of breath, no cough, no wheezing. Cardiovascular symptoms: No chest pain, Gastrointestinal symptoms: No abdominal pain, no nausea, no vomiting, no diarrhea, no constipation,no rectal bleeding. Genitourinary symptoms: No dysuria, no hematuria. Musculoskeletal symptoms: No back pain, Neurologic symptoms: No headache, no dizziness, no numbness, no tingling. Endocrine symptoms: No polyuria, Hematologic/Lymphatic symptoms: Bruising tendency negative, no gum bleeding. Additional review of systems information: All other systems reviewed and otherwise negative, All systems reviewed as documented in chart. ACTIVE PROBLEMS: (2) ([id number]) ([id number]) MEDICATIONS: Active Inpt Meds: None Active PRN Meds: calcium gluconate Start: 07/11/22 1:02:00 EST, Dose = 1,000 mg, = 10 mL, IV Push, AsDirected, PRN, magnesium toxicity, Infuse over: 10 minute(s), 07/11/22 1:02:00 EST One Time Meds: (Completed) cephalexin (Keflex) Start: 07/10/22 22:30:00 EST, Dose = 500 mg, = 1 cap(s), Oral, Once, Stop: 07/10/22 22:30:00 EST, 07/10/22 22:23:00 EST (Ordered) magnesium sulfate (Magnesium Sulfate for IV) Start: 07/11/22 1:00:00 EST, Dose = 4 gram(s), = 100 mL, IV Piggyback, Once, Stop: 07/11/22 1:00:00 EST, Rate: 300 mL/hr, Infuse over: 20 minute(s), 0 Active IV Meds: Lactated Ringers Infusion 1,000 mL (LR 1,000 mL) Start: 07/11/22 0:18:00 EST, Rate: 125 mL/hr, 07/11/22 0:18:00 EST magnesium sulfate 20 gram(s) [2 gm/hr] + Sterile Water Premix Diluent 500 mL (Magnesium Sulfate forIV 20 gram(s) [2 gm/hr] + Sterile Water Premix Diluent 500 mL) Start: 07/11/22 0:55:00 EST, Rate: 50 mL/hr, 07/11/22 0:55:00 EST ALLERGIES: (1) No Known Medication Allergies MEDICAL/SURGICAL HISTORY: Vagal nerve stimulator SOCIAL HISTORY: Denies nicotine, EtOH, drugs PHYSICAL EXAM: VITALS: [id number](kg) 07/10 20:4036.1--[id number]/08 86.0 24 Hr Tmax: 36.1 at 07/10 20:40 36 Hr Tmax: 36.1 at 07/10 20:40 Vital Signs are the last 5 in the past 48 hours. Weights display the last 5 within 7 days. Initial Wt: 07/10 86.0 kg 189 lb Current Wt: 07/10 86.0 kg 189 lb GENERAL: patient lying in bed, somewhat slow to answer questions CARDIOVASCULAR: RRR RESPIRATORY: breathing unlabored ABDOMEN: gravid, not tender EXREMETIES: intact x 4 NEUROLOGICAL: slow to answer questions LABS: 36hr Labs 07/10 2145 Creatinine Lvl (s)0.59 Albumin Level2.5L Alk [id number] Bili Total0.1L BUN8 Calcium Lvl8.5 Dyakfbiv744 CO223 Glucose Level87 Potassium Level3.8 Sodium Podgy839 Total Protein5.8L BUN/Creatinine Ratio14 Globulin3.3 A/G Ratio0.8L AST/SGOT14 ALT/SGPT17 Electrolyte Balance8.0 GFR Non- Nwdjyoms000 GFR [id number] Hct32.9L Hgb11.0L MCH28.5 MCHC33.5 MCV85.1 MPV8.2 Gdjranye387 RBC3.86L RDW14.0 WBC10.4 Lymphocyte %19.4 Monocyte %7.3 Neutrophil %71.2 Eosinophil %1.4 Basophil %0.7 Neutrophil, Absolute7.4H Lymphocyte, Absolute2.0 Monocyte, Absolute0.8 Eosinophil, Absolute0.1 Basophil, Absolute0.1 Monocyte Distribution Width18.11 DIAGNOSTICS: External monitor IMPRESSION: Intrauterine at 26 weeks gestation Seizure disorder Post ictal PLAN: Magnesium sulfate IV requested by Dr. Gurrola [facility] to [facility] by squad -- Dr. Gurrola accepting transport OB Antepartum Discharge Summary Discharge Diagnosis: ( ) Oligohydramnios( ) Pre-term Contractions( ) Pre-term Labor ( ) Chronic HTN( ) Mild preeclampsia( ) Cervical insufficiency ( X ) s/p Seizure ( ) Cholecystitis( ) Multiple gestation ( ) Other Procedures: ( ) Cerclage( ) Amniocentesis( ) PUBS ( ) Amnioreduction Treatments: ( ) Steroids given Dates: ( X ) Magnesium sulfate Hospital Course: ( ) Uncomplicated ( X ) See progress notes Abnormal Lab/Test Value: ( ) None( X ) See progress notes RH: ( X ) N/A( ) Rh positive( ) Rh neg ( ) Rhogam given Rx: Magnesium sulfate -- 4g loading dose, 2g per hour Consultations/referrals: ( ) None( ) Social Service( ) Home Health ( ) Genetics( ) Perinatology( ) Surgery ( ) Infectious Disease( ) Nutrition( ) Anesthesia ( X ) Other: Maternal Medicine Disposition: Transport via squad to [facility] in [place] Condition on Discharge: Stable Follow-up Care: Dr. Gurrola accepting transport Other/Comments: Digitally Signed by ANDREI TOSCANO DO on 07/11/2022 01:34 AM [facility]02-09-2023 Hospital Discharge instructions Patient Education 07/10/2022 22:24:22 Urinary Tract Infections in Women Urinary Tract Infections in Women Urinary tract infections (UTIs) are most often caused by bacteria. These bacteria enter the urinarytract. The bacteria may come from outside the body. Or they may travel from the skin outside the rectum or vagina into the urethra. Female anatomy makes it easy for bacteria from the bowel to enter awoman s urinary tract, which is the most common source of UTI. This means women develop UTIs more often than men. Pain in or around the urinary tract is a common UTI symptom. But the only way to knowfor sure if you have a UTI for the healthcare provider to test your urine. The two tests that may be done are the urinalysis and urine culture. Types of UTIs Cystitis. A bladder infection (cystitis) is the most common UTI in women. You may have urgent or frequent urination. You may also have pain, burning when you urinate, and bloody urine. Urethritis. This is an inflamed urethra, which is the tube that carries urine from the bladder to outside the body. You may have lower stomach or back pain. You may also have urgent or frequent urination. Pyelonephritis. This is a kidney infection. If not treated, it can be serious and damage your kidneys. In severe cases, you may need to stay in the hospital. You may have a fever and lower back pain. Medicines to treat a UTI Most UTIs are treated with antibiotics. These kill the bacteria. The length of time you need to take them depends on the type of infection. It may be as short as 3 days. If you have repeated UTIs, you may need a low-dose antibiotic for several months. Take antibiotics exactly as directed. Don t stop taking them until all of the medicine is gone. If you stop taking the antibiotic too soon, the infection may not go away. You may also develop a resistance to the antibiotic. This can make it much harder to treat. Lifestyle changes to treat and prevent UTIs The lifestyle changes below will help get rid of your UTI. They may also help prevent future UTIs. Drink plenty of fluids. This includes water, juice, or other caffeine-free drinks. Fluids help flush bacteria out of your body. Empty your bladder. Always empty your bladder when you feel the urge to urinate. And always urinatebefore going to sleep. Urine that stays in your bladder can lead to infection. Try to urinate before and after sex as well. Practice good personal hygiene. Wipe yourself from front to back after using the toilet. This helpskeep bacteria from getting into the urethra. Use condoms during sex. These help prevent UTIs caused by sexually transmitted bacteria. Also don'tuse spermicides during sex. These can increase the risk for UTIs. Choose other forms of control instead. For women who tend to get UTIs after sex, a low-dose of a preventive antibiotic may be used. Be sure to discuss this option with your healthcare provider. Follow up with your healthcare provider as directed. He or she may test to make sure the infection has cleared. If needed, more treatment may be started. 5728-1112 [employer] [address] [place] [address], [place] [address]. All rights reserved. This information is not intended as a substitute for professional medical care. Always follow yourhealthcare professional's instructions. Follow Up Care 07/10/2022 20:27:33 With:RENÉE CORBETT MD Address: [address] [place] [address]- When:2-4 days [facility] 02-08-2023 Emergency department Discharge summary Discharge Instructions Thank you for allowing [facility] to assist you with your healthcare needs. The following is importantdischarge information regarding your hospital visit. Diagnosis from Today's Visit Urinary tract infection in Fall; 26 weeks Seizure What to Do Next Instructions from Your Care Team No qualifying data available. Post Acute Orders No qualifying data available. You Need to Schedule the Following Appointments Follow Up with RENÉE CORBETT MD When Within 2-4 days Where: [address] [place] [address]- Allergies No Known Medication Allergies Medications Please ask your primary doctor or pharmacist before taking any other medication not listed, including over the counter drugs, herbal medications, vitamins and or supplements as they may interact withyour home medications. What How Much When Instructions Last Dose New cephalexin (cephalexin 500 mg oral capsule) 1 cap by mouth Four (4) times a day Duration: 5 Days Printed Prescription Please take this list to your next doctor s visit. Bring all medications you take, including over the counter medications, herbals and other supplements with you to your doctor s visit. Patients and families are reminded to discard old lists and to update any records with all medication providers or retail pharmacies. Medication Leaflets cephalexin (sef a REED in) Keflex What is the most important information I should know about cephalexin? You should not use this medicine if you are allergic to cephalexin or to similar antibiotics, such as Ceftin, Cefzil, Omnicef, and others. Tell your doctor if you are allergic to any drugs, especially penicillins or other antibiotics. What is cephalexin? Cephalexin is a cephalosporin (SEF a low spor in) antibiotic that is used to treat bacterial infections of the lungs, ear, skin, bones, bladder, and kidneys. Cephalexin is used to treat infections in adults and children who are at least 1 year old. Cephalexin may also be used for purposes not listed in this medication guide. What should I discuss with my healthcare provider before taking cephalexin? You should not use this medicine if you are allergic to cephalexin or any other cephalosporin antibiotic (cefdinir, cefadroxil, cefoxitin, cefprozil, ceftriaxone, cefuroxime, Omnicef, and others). Tell your doctor if you have ever had: an allergy to any drug (especially penicillin); liver or kidney disease; or intestinal problems, such as colitis. The liquid form of cephalexin may contain sugar. This may affect you if you have diabetes. Tell your doctor if you are or breast-feeding. How should I take cephalexin? Follow all directions on your prescription label and read all medication guides or instruction sheets. Use the medicine exactly as directed. Do not use cephalexin to treat any condition that has not been checked by your doctor. Measure liquid medicine carefully. Use the dosing syringe provided, or use a medicine dose-measuring device (not a kitchen spoon). Use this medicine for the full prescribed length of time, even if your symptoms quickly improve. Skipping doses can increase your risk of infection that is resistant to medication. Cephalexin will not treat a viral infection such as the flu or a common cold. Do not share cephalexin with another person, even if they have the same symptoms you have. This medicine can affect the results of certain medical tests. Tell any doctor who treats you that you are using cephalexin. Store the tablets and capsules at room temperature away from moisture, heat, and light. Store the liquid medicine in the refrigerator. Throw away any unused liquid after 14 days. What happens if I miss a dose? Take the medicine as soon as you can, but skip the missed dose if it is almost time for your next dose. Do not take two doses at one time. What happens if I overdose? Seek emergency medical attention or call the Poison Help line at . Overdose symptoms may include nausea, vomiting, stomach pain, diarrhea, and blood in your urine. What should I avoid while taking cephalexin? Antibiotic medicines can cause diarrhea, which may be a sign of a new infection. If you have diarrhea that is watery or bloody, call your doctor before using anti-diarrhea medicine. What are the possible side effects of cephalexin? Get emergency medical help if you have signs of an allergic reaction (hives, difficult breathing, swelling in your face or throat) or a severe skin reaction (fever, sore throat, burning eyes, skin pain, red or purple skin rash with blistering and peeling). Call your doctor at once if you have: severe stomach pain, diarrhea that is watery or bloody (even if it occurs months after your last dose); unusual tiredness, feeling light-headed or short of breath; easy bruising, unusual bleeding, purple or red spots under your skin; a seizure; pale skin, cold hands and feet; yellowed skin, dark colored urine; fever, weakness; or pain in your side or lower back, painful urination. Common side effects may include: diarrhea; nausea, vomiting; indigestion, stomach pain; or vaginal itching or discharge. This is not a complete list of side effects and others may occur. Call your doctor for medical advice about side effects. You may report side effects to FDA at 2-722-GWG-3371. What other drugs will affect cephalexin? Tell your doctor about all your other medicines, especially: metformin; or probenecid. This list is not complete. Other drugs may affect cephalexin, including prescription and nvun-yvu-iwwzhqx medicines, vitamins, and herbal products. Not all possible drug interactions are listed here. Where can I get more information? Your pharmacist can provide more information about cephalexin. Remember, keep this and all other medicines out of the reach of children, never share your medicines with others, and use this medication only for the indication prescribed. Every effort has been made to ensure that the information provided by [employer] is accurate, up-to-date, and complete, but no guarantee is made to that effect. Drug information contained herein may be time sensitive. [employer] information has been compiled for use by healthcare practitioners and consumers in the [place] and therefore [employer] does not warrant that uses outside of the [place] are appropriate, unless specifically indicated otherwise. [employer] drug information does not endorse drugs, diagnose patients or recommend therapy. [employer] drug information isan informational resource designed to assist licensed healthcare practitioners in caring for their p atients and/or to serve consumers viewing this service as a supplement to, and not a substitute for, the expertise, skill, knowledge and judgment of healthcare practitioners. The absence of a warningfor a given drug or drug combination in no way should be construed to indicate that the drug or drug combination is safe, effective or appropriate for any given patient. [employer] does not assume any responsibility for any aspect of healthcare administered with the aid of information [employer] provides. The information contained herein is not intended to cover all possible uses, directions, precautions, warnings, drug interactions, allergic reactions, or adverse effects. If you have questions about the drugs you are taking, check with your doctor, nurse or pharmacist. Copyright 5973-9201 [employer] Version: 03.04. Revision Date: 06/05/2020. Education Materials Urinary Tract Infections in Women Urinary tract infections (UTIs) are most often caused by bacteria. These bacteria enter the urinarytract. The bacteria may come from outside the body. Or they may travel from the skin outside the rectum or vagina into the urethra. Female anatomy makes it easy for bacteria from the bowel to enter awoman s urinary tract, which is the most common source of UTI. This means women develop UTIs more often than men. Pain in or around the urinary tract is a common UTI symptom. But the only way to knowfor sure if you have a UTI for the healthcare provider to test your urine. The two tests that may be done are the urinalysis and urine culture. Types of UTIs Cystitis. A bladder infection (cystitis) is the most common UTI in women. You may have urgent or frequent urination. You may also have pain, burning when you urinate, and bloody urine. Urethritis. This is an inflamed urethra, which is the tube that carries urine from the bladder to outside the body. You may have lower stomach or back pain. You may also have urgent or frequent urination. Pyelonephritis. This is a kidney infection. If not treated, it can be serious and damage your kidneys. In severe cases, you may need to stay in the hospital. You may have a fever and lower back pain. Medicines to treat a UTI Most UTIs are treated with antibiotics. These kill the bacteria. The length of time you need to take them depends on the type of infection. It may be as short as 3 days. If you have repeated UTIs, you may need a low-dose antibiotic for several months. Take antibiotics exactly as directed. Don t stop taking them until all of the medicine is gone. If you stop taking the antibiotic too soon, the infection may not go away. You may also develop a resistance to the antibiotic. This can make it much harder to treat. Lifestyle changes to treat and prevent UTIs The lifestyle changes below will help get rid of your UTI. They may also help prevent future UTIs. Drink plenty of fluids. This includes water, juice, or other caffeine-free drinks. Fluids help flush bacteria out of your body. Empty your bladder. Always empty your bladder when you feel the urge to urinate. And always urinatebefore going to sleep. Urine that stays in your bladder can lead to infection. Try to urinate before and after sex as well. Practice good personal hygiene. Wipe yourself from front to back after using the toilet. This helpskeep bacteria from getting into the urethra. Use condoms during sex. These help prevent UTIs caused by sexually transmitted bacteria. Also don'tuse spermicides during sex. These can increase the risk for UTIs. Choose other forms of control instead. For women who tend to get UTIs after sex, a low-dose of a preventive antibiotic may be used. Be sure to discuss this option with your healthcare provider. Follow up with your healthcare provider as directed. He or she may test to make sure the infection has cleared. If needed, more treatment may be started. 8176-8523 [employer] [address] [place] [address]. All rights reserved. This information is not intended as a substitute for professional medical care. Always follow yourhealthcare professional's instructions. Additional Information VACCINATE! IT SAVES LIVES! Members of the community who have not yet received the COVID-19 vaccine and would like to receive it can visit one of [facility] vaccine clinics. There are many vaccine clinic locations within the [facility]. For locations and available times, please visit [email or web address]. It is important to note that some COVID mobile vaccine clinics are held outdoors and may be canceled in rainy orstormy conditions. To learn more about pediatric vaccinations (ages 5-11), we invite you to visit the [facility] webpage. https://[email or web address]/[email or web address]-Aeeis-Pcypzmikpiv-Covblargpo-Opajx-Ywn stions.htmlTo learn more about the COVID-19 vaccine, we invite you to visit the [employer] website for a list of frequently asked questions. https://[facility].[employer]/assets/Aukxgcpm-csx-Jvwdzvdn/pgoph-Bvfyyvv-Xvpvvrdufc _Asked-Questions.pdf [facility] Patient Portal Access Instructions: Stay connected with your healthcare team and access your personal medical information anytime with the [facility] Patient Portal. If you would like a full copy of your medical records please contact the [facility] Medical Records Department Friday through Friday between 8a.m. and 4:30p.m. Please follow the directions below to access the portal: 1.Access the email account you provided upon registration to the [facility].2.Look for an invitation email from [facility].3.Open the email and access the invitation link: Accept Invitation to [facility]4.Fill in the required pearce to create your account. Sign into www.[employer] with your username and password that you created in the above steps to stay up to date. You can then view a summary of results, a summary of your visits, and the ability to download your summaries to your computer or send the information securely to a physician. Remember that your healthcare information is confidential, so carefully consider who you will allow to register on the [facility] Patient Portal for access to your information. You can also access the [facility] Patient Portal on the [employer] domingo. Simply click on Health Records under [employer] and then click on the [facility] logo. HOW TO SAFELY DISPOSE OF PRESCRIPTION MEDICATIONS Please use one of the following methods to safely dispose of your unused medications. 1.Use a drug disposal kit: the drug disposal pouch allows you to safely discard your old and unuseddrugs. Ask your nurse to give you one when you are discharged.2.Visit a local take-back location: Many local pharmacies and police departments have programs that collect old and unwanted prescriptiondrugs. Call your local pharmacy or go to http://bit.OncoEthix/9I1In0b to find one close to you.3.Make use of household items: Use cat litter or old coffee grounds to dispose medications if other options arenot available. Mix your drugs with these household products, seal them in an airtight container andthrow it into the garbage. Call [facility]: [phone] to be sure your drugs can be disposed of in this way. Some medicines may require a different approach.4.Never flush your medications down the toilet. IF YOU HAVE BEEN PRESCRIBED AN OPIOIDS FOR PAIN If you have been prescribed an opioid (such as hydrocodone, oxycodone or morphine), it is critical to understand the possible side effects and risks of opioid pain medications. Even when taken as directed, opioids can have several side effects including: Tolerance, meaning you might need to take more of a medication for the same pain relief. Nausea, vomiting and/or constipation. Sleepiness, dizziness, dry mouth, confusion, depression or itching. Physical dependence, meaning you have withdrawal symptoms when a medication is stopped ? this can develop within a few days. KNOW YOUR RESPONSIBILITIES It is important to know exactly how much and how often to take the opioid pain medications you are prescribed. Never take opioids in higher amounts or more often than prescribed. Do not combine opioids with alcohol or other drugs that cause drowsiness, such as benzodiazepines, also known as benzos,including diazepam and alprazolam, muscle relaxants or sleep aids. Never sell or share prescriptionopioids. This is illegal. Store opioids in a secure place and out of reach of others (including children, family, friends and visitors). The last page(s) of this document has been signed and retained as a CHART COPY Signatures Patient Education Materials Urinary Tract Infections in Women Medication Leaflets cephalexin My discharge plan and instructions have been reviewed and explained to me and I,VIC WARE understand my current condition and have read and understand these discharge instructions. I have received a written copy of the plan/instructions. If I have questions, I am aware that I should contact my doctor. Patient/Flight Operation Coordinator Signature: Date/Time: Relationship to Patient: Witness Name/Signature: Date/Time: [facility]02-08-2023 Evaluation + Plan note Diagnostic Tests Pending * Levetiracetam Level 07/10/22 * Lacosamide Level 07/10/22 * Zonisamide Level 07/10/22 [facility] 02-01-2023 Miscellaneous Notes* Quick Notes - Alivia Trent MD - 07/03/2022 4:26 PM EST DM-Pt doing well. Denies vaginal Bleeding, Leaking fluid, or regular Contractions. Pt reports good movement. Had seizure a few weeks ago but took meds late per mother. Physical Exam: Gen: female in no apparent distress Abd: soft, Gravid. Non tender to palpation. See flow sheet A/P: @25.2 weeks 1) plan for delivery?? IOL 39 weeks with early epidural- will discuss with group 2) breast pump paper signed today 3) RTO 3 weeks [facility]ivia Aviles [facility]* Patient Instructions* Evi Parker Ma - 07/03/2022 3:01 PM EST SEQUENTIAL SCREENINGS The [facility] offers sequential screenings for women who are interested in screenings for chromosomal abnormalities and certain defects during a . The sequential screen combinesultrasound and blood tests to determine the risk of chromosomal abnormalities, including Down's Syndrome (Trisomy 21) and Trisomy 18, as well as open neural tube defects including spina bifida. Ultrasound examination is performed between 11 weeks and 13 weeks gestational age. Blood tests are drawn after the ultrasound and again later in the between 15 and 21 weeks gestational age. Please let your physician know if you are interested in this testing. It will require an appointment withour metallurgical lab technician. This is not an ultrasound performed by a physician in our office during a routine visit. SIGNS AND SYMPTOMS OF LABOR 1. Contractions every 10 minutes or more often 2. Clear, pink, or brownish fluid (water) leaking from vagina 3. Feeling that baby is pushing down, pressure 4. Low, dull backache 5. Cramps that feel like a period 6. Cramps with or without diarrhea If you notice any of the above symptoms, contact our office at [phone] and ask to speak with anurse. After hours, you can call doctors registry at [phone] OR call [facility] at [phone] ask to have the doctor operational review sergeant paged. If you consider this an emergency, dial 9-1-3 or go to your nearest emergency department. NEED HELP? Are you dealing with a violent or abusive relationship? Are you a victim of rape or sexual assult? Call [facility] ([place]) 24 hour Crisis Hotline: 319.184.1401 or 962-013-9195. MANUAL Your Guide to a Healthy manual is now on-line. Visit [facility]/HealthyPregnancyGuide to download your free copy documented in [facility]The [facility] Miscellaneous Notes* Quick Notes - Sheila Hernandez MD - 06/13/2022 2:45 PM EST RR- VB No. LOF No. CTXS No. Movement: present. Other c/o: No. Medication list reviewed. Physical Exam See Flow Sheet Abd: soft, nontender, gravid Ext: edema: Trace A/P 22w3d Estimated Date of Delivery: 10/14/22 Labs: 28 week labs next visit needs f/u anatomy US, not scheduled today, will get scheduled cont. PNV heartburn- trial pepcid. Sheila Hernandez M.D. documented in this encounterThe [facility] Instructions* Patient Instructions* Darcie Antony Ma - 06/13/2022 2:31 PM EST SEQUENTIAL SCREENINGS The [facility] offers sequential screenings for women who are interested in screenings for chromosomal abnormalities and certain defects during a . The sequential screen combinesultrasound and blood tests to determine the risk of chromosomal abnormalities, including Down's Syndrome (Trisomy 21) and Trisomy 18, as well as open neural tube defects including spina bifida. Ultrasound examination is performed between 11 weeks and 13 weeks gestational age. Blood tests are drawn after the ultrasound and again later in the between 15 and 21 weeks gestational age. Please let your physician know if you are interested in this testing. It will require an appointment withour metallurgical lab technician. This is not an ultrasound performed by a physician in our office during a routine visit. SIGNS AND SYMPTOMS OF LABOR 1. Contractions every 10 minutes or more often 2. Clear, pink, or brownish fluid (water) leaking from vagina 3. Feeling that baby is pushing down, pressure 4. Low, dull backache 5. Cramps that feel like a period 6. Cramps with or without diarrhea If you notice any of the above symptoms, contact our office at [phone] and ask to speak with anurse. After hours, you can call doctors registry at [phone] OR call [facility] at [phone] ask to have the doctor operational review sergeant paged. If you consider this an emergency, dial 9-7-5 or go to your nearest emergency department. NEED HELP? Are you dealing with a violent or abusive relationship? Are you a victim of rape or sexual assult? Call [facility] ([place]) 24 hour Crisis Hotline: 856.292.2098 or 991-645-7383. MANUAL Your Guide to a Healthy manual is now on-line. Visit [email or web address]/[email or web address] to download your free copy documented in this encounterThe University Of [facility] Center12-27-2022 Miscellaneous Notes* Telephone Encounter - Esme Valera PA-C - 05/28/2022 3:21 PM EST The following approved medication requests have been transmitted electronically. Requested Prescriptions Signed Prescriptions Disp Refills clonazePAM (KLONOPIN) 0.5 mg tablet 10 tablet 1 Sig: Take 1 tablet by mouth as needed (for seizures lasting longer than 3 minutes or cluster of seizures) for up to 180 days. Authorizing Provider: ESME VALERA PA-C * Telephone Encounter - Ruth Matt 05/28/2022 3:05 PM EST Prescription Refill: Patient is out of medication. Requested by: parent Please E-Scribe Caller Contact Number: [phone] Pharmacy Name: [facility] Pharmacy Number: [id number] Generic/ brand: generic 30 or 90 day supply requested: 30 Last appointment: 07/23/21 Next Appointment: none Patient of Dr. Rothman documented in this encounterThe University Of [facility] Center12-20-2022 Miscellaneous Notes* Result Encounter Note - Sheila Hernandez MD - 05/21/2022 3:16 PM EST Anatomy ultrasound reviewed. No abnormalities identified. Repeat ordered and patient to schedule today after appointment. Please place copy in ob chart. Sheila Hernandez MD documented in this encounterThe University Of [facility] Center12-05-2022 History of Present illness Narrative* ANDREAS Martinez - 05/06/2022 2:30 PM EST REPRODUCTIVE GENETIC COUNSELING INITIAL VISIT Kiki Ware : 2000 Above identifiers confirmed by Brook Maradiaga MS, [facility] Consultation requested by: Dr. Reji Lawson Date of clinic visit: May 06, 2022 Proposal Manager offered/present: No - Australian per EMR Kiki Ware is a 21 year old female referred by Dr. Lawson for genetic counseling to discuss her family medical history. Ms. Ware is seen via a virtual Distance Health visit today via [employer] platform per patient choice. The visit is conducted synchronously in real-time. The patient, her partner, Hai, and Hai's grandma, Marisa, are in attendance. PRESENTING PROBLEM: Ms. Ware is a 21 year old female referred to genetics to discuss her family medical history. Specifically, her partner has a clinical and molecular diagnosis of Neurofibromatosis type 1 (NF1). Hehas multiple niym-mb-sbvr spots and neurofibromas in the spine and HAT BINDER. Her partner was diagnosed at age 7 through [facility]'s and reports genetic testing was completed through there. A records release form will be completed to obtain these records. Ms. Ware presents today to discuss this history and recurrence risks further. She has had a low risk NIPT ([id number]) and unremarkable first trimester and growth ultrasounds in thus far. She is scheduled for her anatomy ultrasound on 05/21/22. Of note, Ms. Ware herself has a history of epilepsy which was diagnosed at age 8. She had genetic testing completed which was non-diagnostic. Per [facility] records from 2015 and 2016, chromosome microarray was normal and [employer] EpiXpanded panel was negative for pathogenic changes in 1387 genes. REPRODUCTIVE HISTORY: Currently : Yes / 17w0d (by CRL) LMP: 01/09/22 SUNG: 10/14/22 Plans to deliver at [place] history: 1. Current Infertility as a couple: No Parental Screens: CF: No SMA: No Hemoglobinopathies: No; Patient's MCV: 90.0 fL [place] Diseases: Not at increased risk Other: No Chromosomal analysis: Patient: No Partner: No Products of conception: Not Applicable exposures: - vitamins or other folate supplementation: Yes - Prescription medicines: Yes - Keppra, Zonegran, Vimpat, Clobazam, and PRN Klonopin - OTC medicines, herbal medicines, other supplements: No - Tobacco, alcohol, or illicit drugs: No - Maternal infections or fevers: No - Other known/suspected human teratogens: No Aneuploidy screening: yes (Date: 03/26/22, Result: Negative). - NIPT (StitmniP17): - Screen negative for Trisomy 21, Trisomy 18, Trisomy 13, and sex chromosome aneuploidies - Reported sex: male Ultrasounds: - Dating scan at 6 weeks gestation by LMP (performed by Dr. Crane): 6 weeks by scan. - NT scan: performed 03/26/[address] Lawson; 1.20 mm NT - Growth ultrasound performed 04/23/[address] Lawson; unremarkable - anatomy scheduled 05/21/22 CVS: No Amniocentesis: No complications: - Maternal diabetes, hypertension, seizures, other illness: Yes - Epilepsy - Vaginal bleeding, labor, other complications: Yes - spotting early on - Decreased movement: No SIGNIFICANT PAST MEDICAL/SURGICAL HISTORIES: Kiki: - Epilepsy diagnosed age 8; multiple seizure types (generalized tonic clonic, absence, myoclonic arm jerks, and head drops) - Vagal nerve stimulator placed ~2016 - Genetic testing: non-diagnostic - Anxiety - ADHD - IEPs in school, had to repeat some grades Hai: - Anxiety - NF1 - Learning disability - Left optic glioma FAMILY HISTORY: A 3-generation pedigree was obtained for the patient and her partner and will be scanned into patient's EMR. Of note: - Genetic and/or Inherited Disease: Yes - Ms. Ware's partner has a personal history of Neurofibromatosis type 1. He reported that his paternal grandfather has NF1 as well but that his father does not have NF1. - Common Disorders: Yes - Ms. Ware's partner's maternal grandmother reported she had rheumatic fever three times. - Defects: No - Seizures: Yes - Ms. Ware has a personal history of epilepsy. Genetic testing thus far has been non-diagnostic. - Recurrent Loss/Infertility: No - MR/DD/Autism: Yes - Ms. Ware had IEPs in school and needed to repeat grades. - Ms. Ware's partner has a learning disability. - : No - Other: No - Patient's ethnicity: Mixed - Partner's ethnicity: Mixed - Patient and/or partner did not report -Israeli, , Mediterranean, Ashkenazi Temple and/or Anguillan-Gambian/Cajun ancestries unless noted above. - Patient and partner are NOT consanguineous The remainder of the known family history is negative for infertility, recurrent loss, stillbirth, unexplained infant , defects, malformation syndromes, chromosomal abnormalities, metabolic disorders, developmental delay, mental retardation, known or suspected genetic diseases,and consanguinity except as noted above and on the formal pedigree. GENETIC COUNSELING/DISCUSSION: Ms. Ware is a 21 year old female presenting to genetic counseling to discuss her partner's diagnosis of NF1 as noted in the HPI. Discussed that Neurofibromatosis is caused by a gene change, or pathogenic variant, in the NF1 gene. NF1 is an autosomal dominant condition and an explanation of this inheritance pattern was provided. Based on Ms. Ware's partner's diagnosis, there is a 50% chance to have an affected . Review ed that NF1 is characterized by multiple evif-cc-gftr bansal, axillary and inguinal freckling, multiple cutaneous neurofibromas, iris Lisch nodules, plexiform neurofibromas (50%), and more rarely optic nerve gliomas, scoliosis, tibial pseudoarthrosis, and vasculopathy. We discussed that learning differences and/or developmental delays can be seen in ~50% of individuals with neurofibromatosis type 1. Shared that this condition has intra and interfamilial variability. Discussed that there is a list of diagnostic criteria for NF1 and you need to meet 2 or more to have a clinical diagnosis of NF1: - 6 or more ylcn-ln-xnkgc (CALs) - freckling in the groin or axilla - 2 or more neurofibromas or one plexiform neurofibroma - optic glioma - two or more Lisch nodules - osseous lesion such as sphenoid dysplasia or tibial pseudoarthrosis - first degree relative with NF1 - pathogenic germline NF1 variant Reviewed available genetic testing options to determine status. Discussed the option of diagnostic testing in via amniocentesis. Reviewed gestational timing, accuracy rates, benefits,limitations, and risks, including the risk for complications such as miscarriage, infection, or bleeding. Discussed the availability of familial variant testing if Ms. Ware's partner's variant is known. Reviewed the timelines for turn around times and types of results. Alternatively, discussed the option of a medical genetics evaluation and familial variant testing. Shared that this would likely be completed in the outpatient setting. Ms. Ware declined diagnostic testing at this time and is agreeable to testing. Also discussed Ms. Ware's personal history of epilepsy and non-diagnostic genetic work-up to date. Reviewed the increased risk for neural tube defects in which will be evaluated on future ultrasounds. Discussed that without an underlying genetic etiology, accurate recurrence risks cannot be provided and specific genetic testing is not available. Quoted the empiric recurrence risk of 4%. Offered a referral to medical genetics for possible additional testing through whole exome sequencing. Ms. Ware declined at this time but may be interested after delivery. Finally, reviewed the benefits and limitations of the schedule detailed anatomy ultrasound. The purpose of the ultrasound is to evaluate the fetus for structural malformations and for subtle markers that have been reported more often in fetuses with chromosomal aneuploidies. All pregnancies have a 2-5% chance for defects. Over 80% of fetuses with Trisomy 18 or Trisomy 13 and 50-80% of fetuses with Down syndrome are expected to have findings at the time of the anatomy ultrasound. Thus, ultrasounds cannot identify 100% of pregnancies with a chromosome abnormality or defect. Carrier screening options were not discussed with the couple today due to concerns that informed consent could not be provided by Ms. Ware or her partner. SUGGESTIONS/PLAN: 1. Ms. Ware opted for a medical genetics evaluation and testing as indicated for her son for NF1. She will be contacted after delivery to help coordinate this. A [employer] message was sent with a records release form and patient registration number for her partner to obtain his genetic testing records. 2. Ms. Ware declined diagnostic testing and a medical genetics evaluation for herself at this time but may be open to a visit after delivery. 3. Follow-up as indicated by the above results. 4. Encouraged them to contact me with any questions/concerns/etc. MEDICAL REFERENCES: Ranjan CONDON. Neurofibromatosis 1. 1996Mar 03 [Updated 2021Sep 20]. In: Raymond MP, Amy GM, Jovani RA, et al., editors. Gene[employer]ivraws [Internet]. [place] ([place]): [facility]; [id number]. Available from: https://www.ncbi.nlm.nih.gov/books/LOT7778/ Thank you for referring Ms. Ware. Please do not hesitate to call if you have questions/concerns. The patient was seen for a total of 36 minutes, greater than 50% of which was spent ysdo-ar-bnwq counseling. This plan is being carried out under the oversight of Dr. Kristine Ramos. This note will also be sent to the referring provider via the electronic medical record. Brook Maradiaga MS, [facility] Licensed, Certified Genetic Counselor [facility] CC: Dr. Reji Lawson - Referring Physician Dr. Sheila Hernandez - OB Dr. Kristine Ramos (corrective therapy aide) documented in this encounterThe University Of [facility] Center11-22-2022 Miscellaneous Notes* Quick Notes - Sheila Hernandez MD - 04/23/2022 4:03 PM EST RR- VB No. LOF No. CTXS No. Movement: absent. Other c/o: some pain in groin Medication list reviewed. Physical Exam See Flow Sheet Abd: soft, nontender, gravid Ext: edema: Trace A/P 15w1d Estimated Date of Delivery: 10/14/22 US for anatomy in 3-4 weeks cont. PNV declines flu vaccine. did not take macrobid and urine culture neg Sheila Hernandez M.D. documented in this encounterThe University Of [facility] Center11-22-2022 Miscellaneous Notes* Quick Notes - Reji Lawson MD - 04/23/2022 3:44 PM EST Patient here for evaluation with her partner, who has a diagnosis of NF1. He has multiple cutaneousfindings (orbt-bl-dxcq spots) as well as neurofibromas in the spine and HAT BINDER. Denies any history of vascular disorders/abnormalities. Feeling well today, no subjective sx. Reports seizure disorder with overall stable control and reports compliance with AED regimen. Had an episode of VB over the weekend and had assessment in ER. Episode has since resolved. Today she denies VB, LOF, contractions, abdominal pain or cardiopulmonary sx and ROS otherwise negative. BP 106/76 Wt 168 lb 9.6 oz (76.5 kg) LMP 01/09/2022 BMI 29.87 kg/m General: Alert, oriented x 3, NAD. HEENT: Normocephalic, atraumatic, mucous membranes moist, sclerae anicteric. Abdominal: Soft, non-tender, non-distended without rebound or guarding. Uterus non-tender. Extremities: Non-tender, no erythema or edema. Psych: normal mood and affect, at baseline OB: US today - no visualize malformations, placenta anterior without [facility]placental [facility] Labs/data since last visit - reviewed in EMR - NIPS risk-reducing for aneuploidy Impression/Plan: Return OB visit at 15w1d with the following issues addressed today: Seizure disorder during (multiple AEDs; vagal nerve stimulator) Clinically stable on current AED regimen of Keppra, Zonegran, Vimpat, Clobazam, klonopin, and folate. Appreciate Neurology management and serial assessment of AED levels (~montly) is planned. Maternal/ risks of seizure disorders were reviewed. Reviewed that delivery planning regarding her vagal nerve stimulator will be required with advancing gestational age. Seizure precautions reviewed. Vaginal bleeding in , second trimester Patient assessed in ER over weekend for an episode of VB that resolved. US today reassuring. Bleeding precautions were reviewed. Partner with NF1 We reviewed her partner's history of neurofibromatosis type I along with the risks/implcations. We reviewed that NF1 is an autosomal dominant tumor suppressor syndrome characterized by (typically) benign tumors of the central and peripheral nervous system. NF1 is a relatively common disorder, occurring in approximately 06/2999 live born babies. It is characterized by multiple skin findings, including caf -au-lait spots, axillary and inguinal freckling and cutaneous neurofibromas. Lischnodules of the iris are also common. Additional features of NF1 include, but are not limited to, plexiform neurofibromas, optic nerve gliomas, other central nervous system gliomas and malignant peripheral nerve sheath tumors. Approximately 50% of individuals with NF have learning disabilities. Additionally, NF1 is associated with vascular disorders/disease including renal artery stenosis, pheochromocytoma, and cerebrovascular abnormalities. Reviewed with patient the autosomal dominant inheritance pattern of NF1, including the 50% risk to have a child with NF1 (assuming paternity is certain). Genetic counseling recommended and was ordered today. Option for diagnostic testing (amniocentesis) was discussed along with the procedure- related risks/benefits and limitations of genetic testing. We also discussed the option for testing (cord blood). Today she reported that she prefers testing. All questions regarding NF1 were addressed. care NIPS risk reducing for aneuploidy. Anatomic survey at 18-20 weeks. Reviewed recommendations for influenza an COVID vaccination. Continue routine OB care with primary OB and co-management with MFM. Midtrimester counseling provided. OB precautions and seizure precautions reviewed. RTC with M at 18-20 weeks for office visit and anatomic survey. All questions answered. Ms. Ware expressed understanding and agreement with theplan of care. Reji Lawson MD I spent a total of 30 minutes on the date of the service which included preparing to see the patient, ohve-cc-vqxy patient care, completing clinical documentation, obtaining and/or reviewing separately obtained history, performing a medically appropriate examination, counseling and educating the pat ient/family/caregiver, ordering medications, tests, or procedures, and communicating results to thepatient/family/caregiver. documented in this encounterThe University Of [facility] Center11-22-2022 History of Past illness Narrative* Problem Noted Date Resolved Date Vaginal bleeding in , second trimester 04/23/2022 08/27/2022 Last Assessment & Plan: Patient assessed in ER over weekend for an episode of VB that resolved. US today reassuring. Bleeding precautions were reviewed. Patient request for diagnostic testing 2 08/27/2022 Overview: 02/28/2022 Patient desires aneuploidy screening. She is given contact information for [employer] to call for insurance coverage information. Declines genetic carrier screening testing as mother says she has had that in the past.Nathaniel Mckinney RN Nicotine use disorder, F17.2 07/24/2021 documented as of this encounter (statuses as of 08/28/2022) [facility]11-22-2022 History of Past illness Narrative* Problem Noted Date Resolved Date Vaginal bleeding in , second trimester 04/23/2022 08/27/2022 Last Assessment & Plan: Patient assessed in ER over weekend for an episode of VB that resolved. US today reassuring. Bleeding precautions were reviewed. Patient request for diagnostic testing 2 08/27/2022 Overview: 02/28/2022 Patient desires aneuploidy screening. She is given contact information for [employer] to call for insurance coverage information. Declines genetic carrier screening testing as mother says she has had that in the past.Nathaniel Mckinney RN Nicotine use disorder, F17.2 07/24/2021 documented as of this encounter (statuses as of 08/28/2022) [facility]11-22-2022 History of Past illness Narrative* Problem Noted Date Resolved Date Vaginal bleeding in , second trimester 04/23/2022 08/27/2022 Last Assessment & Plan: Patient assessed in ER over weekend for an episode of VB that resolved. US today reassuring. Bleeding precautions were reviewed. Patient request for diagnostic testing 2 08/27/2022 Overview: 02/28/2022 Patient desires aneuploidy screening. She is given contact information for [facility] to call for insurance coverage information. Declines genetic carrier screening testing as mother says she has had that in the past.Nathaniel Mckinney RN Nicotine use disorder, F17.2 07/24/2021 documented as of this encounter (statuses as of 08/28/2022) [facility]11-22-20[facility] History of Past illness Narrative* Problem Noted Date Resolved Date Vaginal bleeding in , second trimester 04/23/2022 08/27/2022 Last Assessment & Plan: Patient assessed in ER over weekend for an episode of VB that resolved. US today reassuring. Bleeding precautions were reviewed. Patient request for diagnostic testing 2 08/27/2022 Overview: 02/28/2022 Patient desires aneuploidy screening. She is given contact information for [employer] to call for insurance coverage information. Declines genetic carrier screening testing as mother says she has had that in the past.Nathaniel Mckinney RN Nicotine use disorder, F17.2 07/24/2021 documented as of this encounter (statuses as of 08/29/2022) [facility]11-[facility] History of Past illness Narrative* Problem Noted Date Resolved Date Vaginal bleeding in , second trimester 04/23/2022 08/27/2022 Last Assessment & Plan: Patient assessed in ER over weekend for an episode of VB that resolved. US today reassuring. Bleeding precautions were reviewed. Patient request for diagnostic testing 2 08/27/2022 Overview: 02/28/2022 Patient desires aneuploidy screening. She is given contact information for [facility] to call for insurance coverage information. Declines genetic carrier screening testing as mother says she has had that in the past.Nathaniel Mckinney RN Nicotine use disorder, F17.2 07/24/2021 documented as of this encounter (statuses as of 08/31/2022) [facility]11-[facility] History of Past illness Narrative* Problem Noted Date Resolved Date Vaginal bleeding in , second trimester 04/23/2022 08/27/2022 Last Assessment & Plan: Patient assessed in ER over weekend for an episode of VB that resolved. US today reassuring. Bleeding precautions were reviewed. Patient request for diagnostic testing 08/27/2022 Overview: 02/28/2022 Patient desires aneuploidy screening. She is given contact information for [facility] to call for insurance coverage information. Declines genetic carrier screening testing as mother says she has had that in the past.Nathaniel Mckinney RN Nicotine use disorder, F17.2 07/24/2021 documented as of this encounter (statuses as of 09/03/2022) [facility]11-14-2022 Miscellaneous Notes* Quick Notes - Maria Eugenia Soria APRN.KRISTINM - 04/15/2022 1:37 PM EST S: Kiki Ware is a 21 year old female who presents at 14.0 weeks gestation as an add on visit. She was seen in [facility] ED on 04/13/22 for vaginal bleeding. Patient stated she noticed small amount of blood after wiping. She denied any cramps or contractions. Patient had intercourse earlier that day.TAUS completed with positive cardiac activity. No further bleeding. C/O some lower back pain. O: See flow sheet Gen: No apparent distress Abd: Gravid, non tender TAUS - IUP with positive cardiac activity ASSESSMENT/PLAN: 1. 14 weeks gestation of - ICD9: V22.2, ICD10: Z3A.14 (primary diagnosis) - URINE OB DIP B/O 2. Pelvic pain affecting in second trimester, antepartum - ICD9: 646.83, 625.9, ICD10: O26.892, R10.2 UA completed in ED- + Leukocyte estrace, 1+ bacteria and occult blood- Culture sent - Start treatment with Macrobid 100 mg PO BID x 5 days - Awaiting urine culture results 3. Acute bilateral low back pain without sciatica - ICD9: 724.2, 338.19, ICD10: M54.50 - Musculoskeletal - reviewed stretching, massage and slow position changes P: 1) PTL precautions reviewed and when to call 2) RTO 3 weeks for MERON with AFP blood work or sooner if needed Maria Eugenia Soria APRN.CNM documented in this encounterThe [facility] Of [facility]11-14-2022 Instructions* Patient Instructions* Chris Aguilar Senior Packaging Engineer - 04/15/2022 1:12 PM EST SEQUENTIAL SCREENINGS The [facility] offers sequential screenings for women who are interested in screenings for chromosomal abnormalities and certain defects during a . The sequential screen combinesultrasound and blood tests to determine the risk of chromosomal abnormalities, including Down's Syndrome (Trisomy 21) and Trisomy 18, as well as open neural tube defects including spina bifida. Ultrasound examination is performed between 11 weeks and 13 weeks gestational age. Blood tests are drawn after the ultrasound and again later in the between 15 and 21 weeks gestational age. Please let your physician know if you are interested in this testing. It will require an appointment withour metallurgical lab technician. This is not an ultrasound performed by a physician in our office during a routine visit. SIGNS AND SYMPTOMS OF LABOR 1. Contractions every 10 minutes or more often 2. Clear, pink, or brownish fluid (water) leaking from vagina 3. Feeling that baby is pushing down, pressure 4. Low, dull backache 5. Cramps that feel like a period 6. Cramps with or without diarrhea If you notice any of the above symptoms, contact our office at [phone] and ask to speak with anurse. After hours, you can call doctors registry at [phone] OR call [facility] Center at [phone] ask to have the doctor operational review sergeant paged. If you consider this an emergency, dial 9--1 or go to your nearest emergency department. NEED HELP? Are you dealing with a violent or abusive relationship? Are you a victim of rape or sexual assult? Call [facility] ([place]) 24 hour Crisis Hotline: 857.617.1676 or 575-840-5161. MANUAL Your Guide to a Healthy manual is now on-line. Visit [email or web address] to download your free copy documented in this encounterThe [facility]11-08-2022 Miscellaneous Notes* Telephone Encounter - Miranda Tadeo RN - 04/09/2022 11:30 AM EST See 04/04/22 phone note. Patient just found out FOB has Neurofibromatosis that day. Consult with was for epilepsy. Miranda Tadeo RN * Telephone Encounter - Nathaniel Mckinney RN - 04/09/2022 11:23 AM EST Patient has [facility] appointment 04/23 for consult for neurofibromatosis . She already had the consult on 03/26. She will be 15w2d at that appointment time. It does not appear she has to have early anatomy ultrasound.Per Dr Lawson's note she may return for [facility] visit at time of anatomy ultrasound. Is it OK to cancel appointment? documented in this encounterThe [facility] Of [facility]11-04-2022 Miscellaneous Notes* Telephone Encounter - Miranda Tadeo RN - 04/05/2022 10:12 AM EDT Patient notified. Miranda Tadeo RN * Telephone Encounter - Miranda Tadeo RN - 04/05/2022 8:43 AM EDT Left message for patient to call office. See below. Scheduled patient an appointment with Dr. Lawson on 04/23 at 2:30 PM for a consultation. Patient sees RR at 3:10 that day. Miranda Tadeo RN * Telephone Encounter - Alivia Trent MD - 04/05/2022 8:23 AM EDT Not it will not. Would recommend meeting with either MFM or genetic counselor. MFM may be easier place to start. Neurofibromatsis is autosomal dominance inheritence. * Telephone Encounter - Miranda Tadeo RN - 04/04/2022 4:59 PM EDT 12w3d Patient received her results from her NIPT test. Asking if the test will look for Neurofibromatosistype 1 (NF1). Patient found out today that the father of the baby has this condition. Patient is very concerned about this for her baby. Miranda Tadeo RN documented in this encounterThe [facility]11-01-2022 Miscellaneous Notes* Telephone Encounter - Mary Ellen Sotomayor RN - 04/02/2022 2:38 PM EDT Call was made to Kiki, no answer. Detailed message was left stating updated labs are needed. [email or web address] message sent Mary Ellen Mccracken RN * Telephone Encounter - Patrick Arreola APRN.SARAH - 04/02/2022 1:07 PM EDT Our records show she should be taking LEV 1500 mg BID ZNS 200/200 Vimpat 200mg BID Onfi 20mg BID KLP 0.5mg for rescue Component Latest Ref Rng & Units 03/26/2022 Lacosamide 2.2 - 19.8 ug/mL 15.9 Desmethyllacosamide <2.6 ug/mL 1.2 Clobazam 30 - 300 ng/mL 753.0 (H) N-desmethylclobazam 300 - 3000 ng/mL 4710.0 (H) Levetiracetam 12.0 - 46.0 ug/mL 60.7 (H) Zonisamide 10.0 - 40.0 ug/mL 37.2 Levels are not trough, drawn in the afternoon If no concern for seizures would continue AEd unchanged and repaet trough levels in one month- has standing ordered Needs follow up Patrick Arreola APRN.SARAH * Telephone Encounter - Mary Ellen Sotomayor RN - 03/29/2022 11:45 AM EDT I spoke with Irineo, Stated she is 11 weeks . Unable to verify ZNS and LEV dosage. Stated she is sleep will call back later. Mary Ellen Sotomayor RN * Telephone Encounter - Nasra BRIZUELA - 03/29/2022 10:46 AM EDT Medication Concern Person Calling Kiki Ware Name of medication zonegram and dorene Concern with medication SHE is need to watch these meds, benefits out weighs the risk of the child,. Patient of Dr. rothman documented in this encounterThe [facility] Of [facility] Center10-31-2022 Miscellaneous Notes* Telephone Encounter - Aurora Gayle Ma - 04/01/2022 4:24 PM EDT Called Kiki Ware and identified by name and date of . Kiki Ware was informed of negative Non-Invasive Testing (NIPT) results for Trisomy 21, Trisomy 18 and Trisomy 13. Patientwas also notified of the result of no sex chromosome aneuploidy detected. Patient wishes to know sex, which is reported as: male. Reviewed with patient Kiki Ware that NIPT is considered screening and not diagnostic, so this result greatly reduces, but does not eliminate the chance that the fetus could have trisomy 21, trisomy 18, trisomy 13 or sex chromosome aneuploidy. Kiki Ware indicated understanding this information. Patient advised to follow up with AFP neural tube defect screening (blood draw) at 16-18 weeksgestation and 18-20 week detailed anatomy ultrasound. Also instructed to follow-up with Primary OB Provider. Aurora Gayle Ma documented in this encounterThe [facility] Of [facility] Center10-31-2022 Miscellaneous Notes* Telephone Encounter - Patrick Arreola APRN.CNP - 04/01/2022 4:12 PM EDT The following approved medication requests have been transmitted electronically. Requested Prescriptions Signed Prescriptions Disp Refills levETIRAcetam (KEPPRA) 500 mg tablet 540 tablet 1 Sig: Take 3 tablets by mouth twice daily. Authorizing Provider: PATRICK ARREOLA APRN.CNP * Telephone Encounter - Isabell Gallegos - 04/01/2022 2:01 PM EDT Prescription Refill: Requested by: parent Please E-Scribe Caller Contact Number: Pharmacy Name: [facility] Pharmacy Number: [phone] Generic/ brand: 30 or 90 day supply requested: 90 Last appointment: 02/12/22 Next Appointment: none Patient of Dr. Rothman documented in this [facility]10-28-2022 Miscellaneous Notes* Telephone Encounter - Josefina Gutierrez APRN.CNP - 03/29/2022 10:55 AM EDT The following approved medication requests have been transmitted electronically. Requested Prescriptions Signed Prescriptions Disp Refills zonisamide (ZONEGRAN) 100 mg capsule 450 capsule 1 Sig: TAKE 2 CAPSULES BY MOUTH EVERY MORNING AND 3 CAPSULES EVERY EVENING. Authorizing Provider: JOSEFINA GUTIERREZ APRN.CNP documented in this [facility]10-28-2022 Miscellaneous Notes* Telephone Encounter - Nasra Mcmahon PSS - 03/29/2022 10:45 AM EDT ERROR documented in this encounterThe [facility] Of [facility] Center10-26-2022 Miscellaneous Notes* Telephone Encounter - Rachel Lawton RN - 03/27/2022 3:49 PM EDT Patient is 11 weeks . Levels drawn 90 minutes after medication administration. Forwarded to see if repeat levels should be ordered. Standing order is for monthly. Rachel Lawton RN documented in this encounterThe [facility] Of [facility] Center10-25-2022 Miscellaneous Notes* Quick Notes - Karthikeyan Mcdaniel MD - 03/26/2022 2:16 PM EDT KJ - VB No. LOF No. CTXS No. Movement: absent. Other c/o: Yes - she reports mild abdominal & pelvic aches. Also reports increased clear discharge. Denies vaginitis symptoms or STD concerns. Medication list reviewed. Physical Exam See Flow Sheet Gen: no accute distress, well appearing Abd: soft, nontender, gravid A/P 11w1d Estimated Date of Delivery: 10/14/22 Seizure disorder - s/p consult with . Continue meds. NT with NIPT today Reassured on musculoskeletal pains Karthikeyan Mcdaniel MD documented in this encounterThe [facility]10-25-2022 History of Present illness Narrative* Reji Lawson MD - 03/26/2022 2:00 PM EDT Maternal Medicine Consult Note Requested by: Sheila Hernandez MD Reporting: Note/evaluation from today sent to requesting provider via shared medical record. History of Present Illness 21 year old at 11w1d presenting for MFM consultation secondary to a seizure disorder. The patient has a longstanding history of epilepsy with onset of age 8 and is currently managed by [facility] Neurology (Melva Go). Her seizure types include: generalized tonic clonic, absence, myoclonicarm jerks, and head drops. 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 Her current AED therapy includes Keppra, Zonegran, Vimpat, Clobazam, and PRN klonipin. Overall she reports stable seizure control with occasional myoclonic jerks, head drops, or absence seizures without post-ictal state. She has not had a generalized tonic clonic seizure in over [address] not [address] or take tub baths, though recently fell in the shower (which her mother, who was here for the encounter today, feels is secondary to seizure activity). Since becoming she reports that she is also taking 4mg folate daily. She also reports that she has updated her Neurologist that she iscurrently . She had a recent MRI of the brain that was unremarkable (07/24). Her past medical and surgical histories are notable for for anxiety and ADHD (currently stable off medication) and class 1 obesity. She denies a history of prior . She reports no significantgynecologic history and denies fibroids, dysplasia requiring conization, or other gynecologic conditions or surgeries. She denies any personal or family history of significant genetic diagnoses for herself or her partner. She denies tobacco, alcohol or illicit substance abuse. She has an allergy toDepakote (abnormal LFT). Her current mediations include vitamins, Keppra, Zonegran, Vimpat, Clobazam, klonopin, folate. Her course has otherwise been uncomplicated to date. She reported feeling well overall today and denied constitutional symptoms, headache, shortness of breath, chest pain, palpitations, pleurisy, abdominal pain, nausea, vomiting, dysuria, vaginal bleeding, or calf pain. ROS is otherwise negative as below. Review Of Systems: General: negative for fatigue, unintentional weight gain or loss, fever, chills Skin: negative for ulceration, rash, hair changes, nail changes Eyes: negative for double vision, loss of vision, itching. Ears/Nose/Throat: negative for deafness, epistaxis and frequent URI's Respiratory: negative for shortness of breath, wheezing, pleurisy Cardiovascular: negative for chest pain, pressure, palpitations Gastrointestinal: negative for abdominal pain, nausea, emesis, diarrhea Genitourinary: negative for frequency, hematuria, dysuria, flank pain, vaginal bleeding Neurologic: negative for syncope, seizures, weakness, gait problems, numbness. Musculoskeletal: negative for joint pain, joint swelling, no muscle weakness Psychiatric: negative for sleep disturbance, anxiety, depression, suicidal or homicidal ideation Hematologic/Lymphatic/Immunologic: negative for anemia, bleeding, bruising Endocrine: negative for heat or cold intolerance, polydipsia, polyuria Physical Exam: BP 110/74 Wt 170 lb 9.6 oz (77.4 kg) LMP 01/09/2022 BMI 30.22 kg/m General: Alert, oriented x 3, NAD. HEENT: Normocephalic, atraumatic, mucous membranes moist, sclerae anicteric. Thyroid: Normal size, non-tender, no nodules. CV: RRR Abdominal: Soft, non-tender, non-distended without rebound or guarding. Extremities: Non-tender, no erythema or edema. Skin: no rash or skin changes. Psych: normal mood and affect. OB: US today - first trimester evaluation - no visualized malformations, normal NT (see report for details) Records/Labs: Reviewed in EMR Impression: [place] gestation at 11w1d Seizure disorder on multiple mediations, vagal nerve stimulator Class 1 obesity Plan: During consultation today we discussed the following recommendations for her care: Seizure disorder on multiple mediations, vagal nerve stimulator Reviewed with patient and her family the risks/implications of seizure-disorders in . The patient was counseled regarding the importance of avoiding seizure activity throughout . Maternal/ risks of seizures in reviewed including potential for maternal harm (based on activity at time of seizure onset, for example driving --> MVA) as well as risksincluding hypoxia, abruptio placenta, neurologic impairment secondary to hypoxia, asphyxia, and possible . We reviewed today the risks related to her regimen of multiple AEDs in . We discussed the general principle that polypharmacy and use of multiple AEDs is thought to confer an increased risk of defects compared with monotherapy. Reviewed recommendation for her to continue folic acid padilla pplementation (4 mg daily) given that women with seizure disorders are at increased risk for NTDs, particularly when on multiple AEDs. Specific to her individual therapies, we reviewed that keppra crosses the placenta, however studies have not demonstrated an increased risk of congenital malformations with exposure. We reviewed that there is limited data regarding zonisamide and lacosamide in and both drugs cross the placenta. Zonisamide is associated with metabolic acidosis and as such patients should be monitored similar to non- patients, and newborns exposed to zonisamide in utero should be monitored for transient metabolic acidosis after . We discussed that clobazam and clonazepam are benzodiazepines, which are associated with maternal and dependency. Regarding maternal dependency, we discussed the risks of benzodiazepine withdrawal, which can be life-threatening. We also reviewed the risk for dependency and the potential for withdr awal, and an overview of the approach to care for dependent newborns was discussed. Discussed recommendation for Neonatology consultation in the third trimester. Given the risk for malformations due to polypharmacy, a detailed anatomic survey is recommended and ECHO should be considered. Given the severity of her seizure disorder and polypharmacy, the risk for FGR/SGA was discussed and recommend serial assessment of growth (28, 32, 36 weeks) and weekly antenatalsurveillance from 32 weeks until delivery. We reviewed that timing of delivery may depend on seizure control and that medically-indicated or early-term delivery could be indicated with refractory seizures and/or poor control; plan to discuss delivery timing in greater detail with advancing gestational age. We also discussed that physiology may impact the ability to achieve therapeutic AED levels (marked increase in volume of distribution, hepatic p450 induction, increased GFR/renal clearance). As such, drug levels need to monitored serially/closely throughout gestation to maintain levels maggy therapeutic range. Recommend close follow-up with her Neurologist and serial assessment of drug levels with dose titration as clinically indicated. The patient reports that monthly AED level monitoring and Neurology follow-up every 3 months is planned. Discussed a plan to work closely with her Neurologist on her management during (cc'd on note today). We discussed that case series report the use of vagal nerve stimulators in with successful outcomes. Discussed that plans would be need to be made for discontinuation of the stimulator should CD be indicated and electrosurgery be used. I will speak with her OB team in [place] to assess if this service would be available locally, and we discussed today the potential for delivery at a [facility] center to ensure that she has appropriate level of both OB and Neurology support/care. Lastly, seizure precautions/safety precautions were reviewed. Recommend she consider obtaining a showerchair to minimize her falls risk, which we will coordinate with her Neurologist. Class 1 obesity Impact of obesity in reviewed. We discussed the association of obesity with increased risks of macrosomia, GDM (and sequelae), delivery, preeclampsia, and IUFD. [place] of medicine weight gain guidelines for reviewed. Diet, exercise, and nutrition guidelines for reviewed. Recommend early DM screening. Genetic screening Age-related risk of aneuploidy reviewed along with options for genetic screening vs diagnostic testing. Availability of genetic counseling discussed. Desires genetic screening with NIPS which was ordered. First trimester counseling was provided. All patient questions were addressed to her satisfaction today. Thank you for your referral to Maternal Medicine. At this point I recommended ongoing routine OB care with you and comanagement for . Recommend she return for MFM office visit at the time of the anatomic survey and at the time of her growth US at 28 weeks to begin delivery planning. Please feel free to contact me with questions. Sincerely, Reji Lawson MD Time: > 60 minutes with > 50% dedicated to counseling and coordination of care. documented in this encounterThe University Of [facility] Center10-25-2022 Instructions* Patient Instructions* Gabriela Spence Ma - 03/26/2022 1:40 PM EDT SEQUENTIAL SCREENINGS The [facility] offers sequential screenings for women who are interested in screenings for chromosomal abnormalities and certain defects during a . The sequential screen combinesultrasound and blood tests to determine the risk of chromosomal abnormalities, including Down's Syndrome (Trisomy 21) and Trisomy 18, as well as open neural tube defects including spina bifida. Ultrasound examination is performed between 11 weeks and 13 weeks gestational age. Blood tests are drawn after the ultrasound and again later in the between 15 and 21 weeks gestational age. Please let your physician know if you are interested in this testing. It will require an appointment withour metallurgical lab technician. This is not an ultrasound performed by a physician in our office during a routine visit. SIGNS AND SYMPTOMS OF LABOR 1. Contractions every 10 minutes or more often 2. Clear, pink, or brownish fluid (water) leaking from vagina 3. Feeling that baby is pushing down, pressure 4. Low, dull backache 5. Cramps that feel like a period 6. Cramps with or without diarrhea If you notice any of the above symptoms, contact our office at [phone] and ask to speak with anurse. After hours, you can call doctors registry at [phone] OR call [facility] at [phone] ask to have the doctor operational review sergeant paged. If you consider this an emergency, dial [phone] or go to your nearest emergency department. NEED HELP? Are you dealing with a violent or abusive relationship? Are you a victim of rape or sexual assult? Call [facility] ([place]) 24 hour Crisis Hotline: 593.200.7571 or 769-526-6905. MANUAL Your Guide to a Healthy manual is now on-line. Visit [email or web address] to download your free copy documented in this encounterThe [facility] Of [facility] Center10-25-2022 Miscellaneous Notes* Telephone Encounter - Sixto Espitia RN - 03/26/2022 8:38 AM EDT FYI she sees you today. Did not get response from operational review sergeant provider yesterday. Sixto Espitia RN * Telephone Encounter - Sixto Espitia RN - 03/25/2022 2:55 PM EDT 11w0d C/o nausea worsening. She has not vomited in the last 24 hours, but has had constant nausea and came close to vomiting multiple times. She has been sipping on Sprite and has been able to keep a grilled cheese sandwich and banana down in the last 24 hours. Has no appetite though. Made herself eat the food that she has. She came home from work today d/t nausea and she is not able to sleep all nightd/t the nausea either. Not taking anything for this, not even OTC meds. She has visit with ANNAMARIE and PETR tomorrow. Please advise. Sixto Espitia RN documented in this encounterThe [facility] Of [facility] Center10-21-2022 Miscellaneous Notes* Telephone Encounter - Shira Duarte RN - 03/22/2022 4:43 PM EDT Patient notified and voiced understanding. Shira Duarte RN * Telephone Encounter - Maria Eugenia Soria APRN.CNM - 03/22/2022 4:19 PM EDT Shift in normal. A type of immune cell that has granules (small particles) with enzymes that are released during infections. Maria Eugenia Soria APRN.CNM * Telephone Encounter - Miranda Tadeo RN - 03/22/2022 3:26 PM EDT Patient was notified yesterday to use Monistat 7 for yeast. Calling today because she reviewed the BV culture results. Asking for in depth explanation of Few Polymorphonuclear leukocytes Few Mononuclear cells documented in this encounterThe University Of [facility] Center10-20-2022 Miscellaneous Notes* Telephone Encounter - Miranda Tadeo RN - 03/21/2022 9:17 AM EDT See Mychart message. Miranda Tadeo RN * Telephone Encounter - Rachel Banks APRN.CNP - 03/21/2022 9:14 AM EDT Please notify patient that she does have a yeast infection. I would like her to use Monistat 7 (or generic) 1 of a applicator full every night for 7 nights. If symptoms do not improve please hansel the office. Rachel Banks APRN.SARAH documented in this encounterThe University Of [facility] Center10-19-2022 Miscellaneous Notes* Telephone Encounter - Alivia Trent MD - 03/20/2022 4:56 PM EDT Can be normal in - will wait for results. So long as no bleeding or fevers. Call office tomorrow with update. CP can follow up results. * Telephone Encounter - Miranda Tadeo RN - 03/20/2022 2:07 PM EDT 10w2d Patient seen in office yesterday with CP. Urine culture negative. Preliminary BV yeast swab resultsavailable. Miranda Tadeo RN documented in this encounterThe University Of [facility] Center10-18-2022 Miscellaneous Notes* Quick Notes - Maria Eugenia Soria APRN.CNM - 03/19/2022 11:16 AM EDT S: Kiki Ware is a 21 year old female who presents at 10.1 weeks gestation for lower pelvic pressure and pain. Patient reports having UTI a couple of weeks ago, was given antibiotics and did not finish all of antibiotics because she got a yeast infection and antibiotics were causing her mini seizures so her mom stopped them. She denies any dysuria, vaginal discharge, itching or hematuria. Here today because she has random lower pelvic pressure and pulling. Denies any vaginal bleeding or loss of fluid. Denies recent intercourse. O: See flow sheet Gen: No apparent distress Abd: Gravid, non tender TAUS- IUP with FHT 168 bpm ASSESSMENT/PLAN: 1. Pelvic pressure in - ICD9: 646.83, 625.9, ICD10: O26.899, R10.2 - BACT/BRANDY VAG GRAM STAIN - URINE CULTURE- SOPHIA for previous UTI - Patient not drinking water daily- reviewed importance of hydration and suspect possible dehydration. RTO - next week for regular MERON Maria Eugenia Soria APRN.CNM documented in this encounterThe [facility] Of [facility] Center10-18-2022 Instructions* Patient Instructions* Sindy Das MA - 03/19/2022 10:56 AM EDT SEQUENTIAL SCREENINGS The [facility] offers sequential screenings for women who are interested in screenings for chromosomal abnormalities and certain defects during a . The sequential screen combinesultrasound and blood tests to determine the risk of chromosomal abnormalities, including Down's Syndrome (Trisomy 21) and Trisomy 18, as well as open neural tube defects including spina bifida. Ultrasound examination is performed between 11 weeks and 13 weeks gestational age. Blood tests are drawn after the ultrasound and again later in the between 15 and 21 weeks gestational age. Please let your physician know if you are interested in this testing. It will require an appointment withour metallurgical lab technician. This is not an ultrasound performed by a physician in our office during a routine visit. SIGNS AND SYMPTOMS OF LABOR 1. Contractions every 10 minutes or more often 2. Clear, pink, or brownish fluid (water) leaking from vagina 3. Feeling that baby is pushing down, pressure 4. Low, dull backache 5. Cramps that feel like a period 6. Cramps with or without diarrhea If you notice any of the above symptoms, contact our office at [phone] and ask to speak with anurse. After hours, you can call doctors registry at [phone] OR call [facility] at [phone] ask to have the doctor operational review sergeant paged. If you consider this an emergency, dial [phone] or go to your nearest emergency department. NEED HELP? Are you dealing with a violent or abusive relationship? Are you a victim of rape or sexual assult? Call [facility] ([place]) 24 hour Crisis Hotline: 979.580.2089 or 278-562-9384. MANUAL Your Guide to a Healthy manual is now on-line. Visit [email or web address] to download your free copy documented in this encounterThe University Of [facility] Center10-11-2022 Miscellaneous Notes* Telephone Encounter - Alivia Trent MD - 03/12/2022 2:57 PM EDT Yes needs mfm consult * Telephone Encounter - Nathaniel Mckinney RN - 03/12/2022 2:13 PM EDT Patient scheduled for MFM appointment with nuchal ultrasound.Do you want to an order for consult with MFM or is this not a consult? If it is not a consult , can we move her to another day since thereare not many openongs? documented in this encounterThe University Of [facility] Center10-03-2022 Miscellaneous Notes* Telephone Encounter - Alivia Trent MD - 03/04/2022 9:05 AM EDT It is TID- so 21 tabs ordered- Rx corrected. * Telephone Encounter - Miranda Tadeo RN - 03/04/2022 9:02 AM EDT See pharmacy note below: Pharmacy comment: Script Clarification:QTY IS 14, BUT PT IS TO TAKE 3 TIMES DAILY FOR 7 DAYS WHICH WOULD BE QTY OF 21, WHICH IS IT? documented in this encounterThe University Of [facility] Center10-03-2022 Miscellaneous Notes* Telephone Encounter - Sixto Espitia RN - 03/04/2022 8:36 AM EDT Patient notified. Sixto Espitia RN * Telephone Encounter - Shira Duarte RN - 03/04/2022 8:34 AM EDT Left message to call office. Shira Duarte RN * Telephone Encounter - Shira Duarte RN - 03/04/2022 8:34 AM EDT ----- Message from Alivia Trent MD sent at 03/04/2022 8:18 AM EDT ----- Notify patient of + urine culture. Will treat with amoxicillin. documented in this encounterThe University Of [facility] Center09-30-2022 Miscellaneous Notes* Telephone Encounter - Patricia Terry RN - 03/01/2022 2:38 PM EDT PRAF #1 completed 03/01/22 SIA Aguila, RN OB Clinical Navigator [phone] documented in this encounterThe University Of [facility]09-29-2022 Instructions* Patient Instructions* Evi Parker Ma - 02/28/2022 2:52 PM EDT Please select the following link to access the [facility] Your Guide to a Healthy . [email or web address] documented in this encounterThe [facility] Of [facility]09-29-2022 History of Present illness Narrative* Alivia Trent MD - 02/28/2022 2:51 PM EDT INITIAL OB ASSESSMENT OB Provider: Alivia Trent MD HPI: Kiki Ware is a 21 year old female here to establish Obstetrical Care. Patient'slast menstrual period was 01/09/2022. from OB Dating Form. Cycle length: 28 days. Nexplanon removed01/09/22 Complaints: nausea without vomiting was unplanned but accepted. OB History T0 L0 SAB0 IAB0 Ectopic0 Multiple0 Live Births0 Prior : never History of 4th degree laceration: No Patient's Risk Screening for delivery: History of abnormal pap: No Prior treatment for cervical dysplasia: none. History of STDs: None Tobacco use: No Caffeine use: yes Drug use: No Alcohol use: No Multivitamin with Folic acid: Yes Occupation: home Temple or heritage: No Would refuse blood transfusion if medically necessary: No BMI 29.93 kg/(m^2) Patient BMI over 30? 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 folic acid 1 mg tablet Take 2 tablets by mouth twice daily. cloBAZam (ONFI) 10 mg tab tablet Take 2 tablets by mouth twice daily for 90 days. = vit [id number]-[id number]-dha (PRENATE MINI, FERR ASP GLYCIN,) 18-1-350 mg cap Take 1 Dose by mouth once daily. clonazePAM (KLONOPIN) 0.5 mg tablet Take 1 tablet by mouth as needed (for seizures lasting longer than 3 minutes or cluster of seizures) for up to 180 days. levETIRAcetam (KEPPRA) 500 mg tablet Take 3 tablets by mouth twice daily. zonisamide (ZONEGRAN) 100 mg capsule Take 2 capsules by mouth every morning AND 3 capsules every evening. No current facility-administered medications on file prior to visit. Review of Systems: GENERAL: Negative for: Fever or Chills HEENT: Negative for: Headache, Impaired Vision, Ringing in Ears, Nosebleeds NECK: Negative for: Swelling, Pain, Stiffness RESPIRATORY: Negative for: Cough, Shortness of breath, Wheezing GASTROINTESTINAL: Negative for: Heartburn, Constipation, Diarrhea, Blood in stool, Vomiting MUSCULOSKELETAL: Negative for: Muscle or joint pain, stiffness, Joint swelling NEUROLOGIC/PSYCHIATRIC: Negative for: Weakness, Paralysis, Numbness, Tingling, Tremor, Anxiety, Depression, Memory loss SKIN: Negative for: Rash, Itching GENITOURINARY: Negative for: vaginal itching, vaginal discharge, hematuria or dysuria PHYSICAL EXAM: BP 110/70 Wt 170 lb (77.1kg) LMP 01/09/2022 GENERAL: pleasant female in no apparent distress DERMATOLOGY: Normal, without lesions, non-icteric, and non-hirsute NECK: Supple, full range of motion, no adenopathy, and thyroid normal BREAST: deferred ABDOMEN: soft, non-tender, and no masses NEURO: alert and oriented x3,exam grossly non-focal PELVIS: External genitalia normal without lesions. Cervix closed. Uterus 7 week size. No adnexal masses or tenderness. Clinical Pelvimetry: Pelvimetry clinically assessed as adequate Limited OB ultrasound exam: single intrauterine and positive cardiac activity ASSESSMENT: 21 year old at 7.3 wks gestational age PLAN: 1) Patient oriented to practice. Discussed nutrition, folic acid supplementation, dietary guidelines, exercise, smoking, alcohol, caffeine, and drug use. Discussed routine OB labs including STD/HIV. Discussed aneuploidy screening options including serum screening and nuchal translucency. 2) taking 4mg Folic Acid - risk of NT reviewed 3) will have NT with MFM - on newer seizure medications- pt mother has lots of questions regarding them. 4) declines flu vaccine today Follow up in 4-5 weeks or sooner prn. Alivia Aviles MD documented in this encounterThe [facility] Of [facility] Center09-16-2022 Miscellaneous Notes* Telephone Encounter - Patrick Arreola APRN.MEDICAL OFFICE COORDINATOR - 02/15/2022 2:42 PM EDT The following approved medication requests have been transmitted electronically. Requested Prescriptions Signed Prescriptions Disp Refills lacosamide (VIMPAT) 200 mg 180 tablet 1 Sig: Take 1 tablet by mouth twice daily for 180 days. Authorizing Provider: PATRICK ARREOLA APRN.CNP * Telephone Encounter - Nasra BRIZUELA - 02/15/2022 2:40 PM EDT Prescription Refill: PT OUT OF MEDS Requested by: parent Please Call in Caller Contact Number: [phone] (home) Pharmacy Name: [facility] Pharmacy Number: [id number] Generic/ brand: generic 30 or 90 day supply requested: 90 Last appointment: 02/12/22 Next Appointment: none Patient of Dr. rothman documented in this encounterThe [facility] Of [facility] Center09-13-2022 History of Present illness Narrative* Annette Crowder APRN.CNP - 02/12/2022 3:03 PM EDT [facility] VIRTUAL VISIT HISTORY OF PRESENT ILLNESS: Kiki Ware is a 21 year old RHF who is diagnosed with LGS, generalized epilepsy, and presents today for virtual visit to discuss her . They are an established patient of Dr. Rothman'baldo and was last seen on 07/23/2021 by Josefina Gutierrez CNP. Patient reports she is 4-5 weeks . Blood test positive at local [facility]. hcG elevated at 4 weeks at 1350.0. Ob aware she may have multiples.First U/S scheduled for 02/21/2022. On prenates and 1mg FA. She remains on 5 AED's and has a VNS(functional). Seizures:No GTC's in last 4-5 weeks. Mom has seen her have blinks with her eyes. Patient expressing concerns if her baby will be normal. Again told her the medications carry considerable risk as well as her uncontrolled seizures do. She will need to take really good care of herself and get rest, be able to keep her meds down, get labs done, and follow directions.Unclear if she is really aware of the risks involved. Mom does all of the talking and routinely gives her all of her medications. Fiance is involved but not present during video. AED's: FA 1mg daily ZNS 200mg-300mg Keppra 1500mg BID Vimpat 200mg BID Onfi 20mg BID KLP 0.5mg for rescue In other health, stable. Occupation: none Driving: no Mood: flat, avoids eye contact with examiner Memory: fair. CURRENT OUTPATIENT MEDICATIONS: Current Outpatient Medications Medication Sig vit 31-pxtn-xvbmm-dha (PRENATE MINI, FERR ASP GLYCIN,) 18-1-350 mg cap Take 1 Dose by mouth once daily. folic acid 1 mg tablet Take 2 tablets by mouth once daily. lacosamide (VIMPAT) 200 mg Take 1 tablet by mouth twice daily for 180 days. clonazePAM (KLONOPIN) 0.5 mg tablet Take 1 tablet by mouth as needed (for seizures lasting longer than 3 minutes or cluster of seizures) for up to 180 days. levETIRAcetam (KEPPRA) 500 mg tablet Take 3 tablets by mouth twice daily. zonisamide (ZONEGRAN) 100 mg capsule Take 2 capsules by mouth every morning AND 3 capsules every evening. cloBAZam (ONFI) 10 mg tab tablet Take 2 tablets by mouth twice daily for 90 days. = No current facility-administered medications for this visit. 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 Suspicion for twins due to high level of hcG at 4 weeks (1350.0). Ultrasound scheduled for 02/21/2022.On prenates and will increas FA. Mom has not seen a GTC in 4-5 weeks. She does observe eye blinks. Mom making sure she gets her rest/sleep. Mom gives her all her medicine and essentially takes care of her daily needs. Fiance not present today.Counseled both mom and patient of risk to fetus from all of these meds and seizures. Will share this with Dr. Rothman. . PLAN: - LABS: monthly blood levels of AED's during - Medications: -increase FA to 2mg BID -continue with gummy prenates daily -continue with Keppra 500mg, 3 pills BID -continue with Vimpat 200mg BID -continue with ZNS 200mg QAM and 300mg QHS -continue with Onfi 20mg BID -continue with KLP for rescue. -continue with all other daily medications -Use VNS for rescue to abort seizures/clusters -Follow all seizure precautions. No driving or operating hazardous machinery. - Needs 7-8 hours of sleep per night - If having issues with nausea and unable to keep down meds;needs to call OB for anti-emetic to keep down AED's. May need to adjust times she takes meds if nauseated in am. -monthly blood draws about the same week every month and early in am or late in day. Be consistent with times if possible. - Consults: none from Epilepsy - Follow up: every three months during with virtual. [employer] checked and approved. Token# [id number]. I spent 20 minutes during this encounter counseling on risk to fetus from meds and seizures. Counseled on monthly drug levels, rest, eating, taking her of herself. Annette Crowder APRN.SARAH February 12, 2022 documented in this encounterThe [facility] Of [facility]09-08-2022 History of Present illness Narrative* Sheila Hernandez MD - 02/07/2022 11:35 AM EDT Kiki Ware is a 21 year old female who presents for problem visit for postive test. HPI: 21-year-old female who is sexually active who had her Nexplanon removed in December. Presents with positive test. Denies any nausea or vomiting. Has had some breast tenderness. 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 year old PAST SURGICAL HISTORY Procedure Laterality Date NONE FAMILY HISTORY Problem Relation Age of Onset Heart Paternal Grandfather [place] Asthma Brother outgrown asthma Asthma Brother outgrown asthma Allergies Brother Allergies Brother Diabetes Maternal Aunt Social History Tobacco Use Smoking status: Never Smokeless tobacco: Never Tobacco comments: smoking outside per mom Vaping Use Vaping Use: Never used Substance Use Topics Alcohol use: Yes Comment: special occasions Drug use: Yes Types: Marijuana Current Outpatient Medications Medication Sig clonazePAM (KLONOPIN) 0.5 mg tablet Take 1 tablet by mouth as needed (for seizures lasting longer than 3 minutes or cluster of seizures) for up to 180 days. levETIRAcetam (KEPPRA) 500 mg tablet Take 3 tablets by mouth twice daily. zonisamide (ZONEGRAN) 100 mg capsule Take 2 capsules by mouth every morning AND 3 capsules every evening. cloBAZam (ONFI) 10 mg tab tablet Take 2 tablets by mouth twice daily for 90 days. = lacosamide (VIMPAT) 200 mg Take 1 tablet by mouth twice daily for 180 days. triamcinolone acetonide (KENALOG) 0.1 % cream Apply to affected area twice daily. As needed for itching. Magnesium 250 mg tab Take 250 mg by mouth twice daily. 1 tablet in the morning and 1 tablet at night Cholecalciferol, Vitamin D3, 50 mcg (2,000 unit) cap Take 1 tablet by mouth once daily. folic acid 400 mcg tablet Take 400 mcg by mouth once daily. Pyridoxine HCl 250 mg tablet Take 250 mg by mouth once daily. No current facility-administered medications for this visit. Allergies As of Date: 02/07/2022 Allergen Noted Reaction DEPAKOTE [DIVALPROEX] 07/23/2021 Other: See Comments Fully Assessed 02/05/2022 Allergies and current medication updated:Yes EXAM: BP 106/74 Wt 169 lb (76.7kg) LMP 01/10/2022 GENERAL: pleasant, female in no apparent distress ASSESSMENT AND PLAN: Early . Needs to consult with her physician about epilepsy medications. At this point I discussed with them that we will likely need to continue her current epilepsy medications. All medications during have some risk but we have to weigh the risks and benefits. For at this point I would recommend she continue her current doses and regimen. Will need an ultrasound for dates. Will need MFM consult. Schedule OB and new OB. Too early for ultrasound today. Sheila Hernandez MD documented in this encounterThe University Of [facility] Center09-07-2022 Miscellaneous Notes* Telephone Encounter - Sixto Espitia RN - 02/06/2022 11:28 AM EDT Patient notified. Sixto Espitia RN * Telephone Encounter - Evie Crane MD - 02/06/2022 11:14 AM EDT Filed quant * Telephone Encounter - Sixto Espitia RN - 02/06/2022 10:19 AM EDT Patient unsure of LMP. Pretty sure she didn't have one in November or December. Had positive UPT yesterday in urgent care. Asking if she can get blood work done first prior to appointments. Thinks she possibly wants to transfer care to [facility]OT[facility] for care, but hasn't scheduled yet. Sixto Espitia RN documented in this encounterThe [facility] Of [facility] Center09-06-2022 History of Present illness Narrative* Sonido Figueroa APRN.SARAH - 02/05/2022 4:34 PM EDT Subjective HPI Nontoxic-appearing female presents urgent care chief complaint possible . Patient states she cannot remember when her last period was. Did take 2 home test last night. Presents today for test. States she is sexually active. She does not use protection. She is not on control. Denies any nausea vomiting abdominal pain fever body aches chills vaginal discharge. Past medical history prescription medication use allergies reviewed. Currently on epileptic medications. 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 levETIRAcetam (KEPPRA) 500 mg tablet Take 3 tablets by mouth twice daily. zonisamide (ZONEGRAN) 100 mg capsule Take 2 capsules by mouth every morning AND 3 capsules every evening. cloBAZam (ONFI) 10 mg tab tablet Take 2 tablets by mouth twice daily for 90 days. = triamcinolone acetonide (KENALOG) 0.1 % cream Apply to affected area twice daily. As needed for itching. Magnesium 250 mg tab Take 250 mg by mouth twice daily. 1 tablet in the morning and 1 tablet at night Cholecalciferol, Vitamin D3, 50 mcg (2,000 unit) cap Take 1 tablet by mouth once daily. folic acid 400 mcg tablet Take 400 mcg by mouth once daily. Pyridoxine HCl 250 mg tablet Take 250 mg by mouth once daily. lacosamide (VIMPAT) 200 mg Take 1 tablet by mouth twice daily for 180 days. FAMILY HISTORY Problem Relation Age of Onset Heart Paternal Grandfather [place] Asthma Brother outgrown asthma Asthma Brother outgrown asthma Allergies Brother Allergies Brother Diabetes Maternal Aunt Social History Tobacco Use Smoking status: Never Smokeless tobacco: Never Tobacco comments: smoking outside per mom Vaping Use Vaping Use: Never used Substance Use Topics Alcohol use: Yes Comment: special occasions Drug use: Yes Types: Marijuana BP 102/64 Pulse 72 Temp 37 C (98.6 F) (Tympanic) Resp 18 Wt 76.9 kg (169 lb 9.6 oz) LMP 06/02/2021 SpO2 97% BMI 30.04 kg/m Review of Systems Constitutional: Negative for chills, fever and malaise/fatigue. HENT: Negative for congestion, ear discharge, ear pain, sinus pain and sore throat. Eyes: Negative for blurred vision, pain, discharge and redness. Respiratory: Negative for cough, hemoptysis, sputum production, shortness of breath, wheezing and stridor. Cardiovascular: Negative for chest pain. Gastrointestinal: Negative for abdominal pain, diarrhea, nausea and vomiting. Musculoskeletal: Negative for myalgias. Skin: Negative for itching and rash. Neurological: Negative for dizziness and headaches. Objective Physical Exam Constitutional: General: She is not in acute distress. Appearance: She is not diaphoretic. HENT: Head: Normocephalic. Mouth/Throat: Mouth: Mucous membranes are moist. Pharynx: Oropharynx is clear. No oropharyngeal exudate or posterior oropharyngeal erythema. Eyes: Conjunctiva/sclera: Conjunctivae normal. Pupils: Pupils are equal, round, and reactive to light. Cardiovascular: Rate and Rhythm: Normal rate and regular rhythm. Heart sounds: Normal heart sounds. Pulmonary: Effort: Pulmonary effort is normal. No tachypnea, accessory muscle usage or respiratory distress. Breath sounds: Normal breath sounds. No stridor. No wheezing, rhonchi or rales. Abdominal: Palpations: Abdomen is soft. Tenderness: There is no abdominal tenderness. Musculoskeletal: Cervical back: Normal range of motion and neck supple. No rigidity or tenderness. Lymphadenopathy: Cervical: No cervical adenopathy. Skin: General: Skin is warm and dry. Neurological: Mental Status: She is alert and oriented to person, place, and time. ASSESSMENT/PLAN: 1. Missed period - ICD9: 626.4, ICD10: N92.6 (primary diagnosis) - HCG QUAL UR B/O 2. Positive urine test - ICD9: V72.42, ICD10: Z32.01 Patient diagnosed with missed menstrual cycle and positive urine test. Patient was instructed to contact AUTOMOTIVE SERVICE TECHNICIAN's office tomorrow to be establish to discuss medications and positive test. Patient wishes to be seen through [facility]. Patient was educated on supportive therapies. Patient will follow up with primary care provider as needed. Patient was instructed to immediately proceed to emergency room for any new, worsening, or symptoms lasting longer than anticipated. The patient's clinical presentation is otherwise unremarkable at this time. Based on exam and clinical finding, the patient is stable for discharge. Plan of care was discussed with patient. Patient verbalizes understanding and agrees to plan of care. This note was generated using FilterSure software. It may contain errors in wording, punctuation, or spelling. Sonido Figueroa APRN.CNP documented in this encounterThe University Of [facility] Center08-12-2022 Miscellaneous Notes* Telephone Encounter - Miranda Tadeo RN - 01/11/2022 3:21 PM EDT Order linked to 01/22/22 appointment. Miranda Tadeo RN * Telephone Encounter - Rachel Banks APRN.CNP - 01/11/2022 3:03 PM EDT She already has an appt with on 01/22 to discuss control. I will file an order to insert Nexplanon. Rachel Banks APRN.CNP * Telephone Encounter - Miranda Tadeo RN - 01/11/2022 2:22 PM EDT Patient seen on 01/09 for Nexplanon removal. Calling to request to have the Nexplanon inserted again. Inquired if there was a reason she is requesting to have it replaced the same week she had it removed. Patient repeatedly stated I made a mistake. I want it back in. Advised a message would be sent to requesting an order. Patient wanting done KETAN. Miranda Tadeo RN documented in this encounterThe University Of [facility] Center08-10-2022 History of Present illness Narrative* Rachel Banks APRN.CNP - 01/09/2022 11:44 AM EDT Kiki is a 21 year old who presents for Nexplanon removal for doesn't like the feeling in her arm. UNIVERSAL PROTOCOL / SAFETY CHECKLIST Procedure to be Performed: Nexplanon removal Sign In: A Moment of CARE was completed. Personnel directly involved with the procedure wore the appropriate PPE (Personal Protective Equipment). Patient/Surrogate Stated/Verified: PATIENT VERIFIED(optional for EMERGENT procedures): Patient name, Date of , Relevant allergies, and The intended procedure Time Out Communication: Intended patient and procedure match the source documents. Consent documented and matches the intended procedure. Sign Out: SIGN OUT (optional for EMERGENT procedures): No specimen collected. All instruments, equipment, possible retained foreign bodies accounted for. TECHNIQUE: Patient placed in supine position with left arm bent at the elbow and placed over the head. Skin cleansed with betadine. 1.5mL of 1% lidocaine with epi injected subQ along insertion site. Scalpel used to made a 5mm stab incision superficially at distal end of Nexplanon. Device removed understerile technique with a small hemostat. Sterile pressure dressing applied. A&P: 21 year old here for Nexplanon removal Nexplanon removed intact without difficulty. The patient was instructed to remove the dressing after 24 hours. Rachel Banks APRN.CNP documented in this encounterThe University Of [facility] Center08-09-2022 Miscellaneous Notes* Telephone Encounter - Yudith Cline LPN - 01/08/2022 2:11 PM EDT Referral attached. Yudith Cline LPN * Telephone Encounter - Rachel Banks APRN.CNP - 01/08/2022 9:00 AM EDT Order filed. Rachel Banks APRN.CNP * Telephone Encounter - Yudith Cline LPN - 01/08/2022 8:41 AM EDT Pt is coming in tomorrow morning to have her Nexplanon removed. See pended order so that this can start the referral. Yudith Cline LPN documented in this encounterThe University Of [facility] Center08-01-2022 Miscellaneous Notes* Telephone Encounter - Patrick Arreola APRN.SARAH - 12/31/2021 4:35 PM EDT The following approved medication requests have been transmitted electronically. Signed Prescriptions Disp Refills levETIRAcetam (KEPPRA) 500 mg tablet 540 tablet 1 Sig: Take 3 tablets by mouth twice daily. MARK: No Authorizing Provider: PATRICK ARREOLA zonisamide (ZONEGRAN) 100 mg capsule 450 capsule 1 Sig: Take 2 capsules by mouth every morning AND 3 capsules every evening. MARK: No Authorizing Provider: PATRICK ARREOLA APRN.CNP * Telephone Encounter - CHATA Manzano - 12/31/2021 1:48 PM EDT Prescription Refill: OUT OF MEDS Requested by: parent Please E-Scribe Caller Contact Number: Pharmacy Name: [facility] Pharmacy Number: Generic/ brand: 30 or 90 day supply requested: 90 Last appointment: 07/23/21 Next Appointment: none Patient of Dr. Rothman documented in this encounterThe [facility]07-20-2022 Miscellaneous Notes* Telephone Encounter - Jazlyn Wisdom PA-C - 12/19/2021 2:37 PM EDT The following approved medication requests have been transmitted electronically. Signed Prescriptions Disp Refills cloBAZam (ONFI) 10 mg tab tablet 360 tablet 0 Sig: Take 2 tablets by mouth twice daily for 90 days. = SHEILA Class: C-IV MARK: No Authorizing Provider: JAZLYN WISDOM PA-C * Telephone Encounter - Jossie Diego Asst - 12/19/2021 2:14 PM EDT Prescription Refill: Patient is out of medication Requested by: parent Please E-Scribe Caller Contact Number: [phone] Pharmacy Name: [facility] Pharmacy Number: [id number] Generic/ brand: Generic 30 or 90 day supply requested: 90 Last appointment: 07/23/21 Next Appointment: none scheduled Patient of Dr. Rothman documented in this encounterThe [facility]06-27-2022 Miscellaneous Notes* Telephone Encounter - Yudith Steve - 11/26/2021 2:58 PM EDT Called and spoke with Kiki, She states she is doing fine, no seizures or issues with medication side effects. Back on her normal medication times. Yudith Steve * Telephone Encounter - Patrick Arreola APRN.CNP - 11/26/2021 1:48 PM EDT Would take afternoon dose of lev 1500 mg and LCM 200 sicne they are shorter acting- and take all pmmeds as scheduled * Telephone Encounter - Mary Ellen Sotomayor RN - 11/23/2021 3:43 PM EDT 07/23/2021 ELZA PLAN: - MRI, then EMU admission - VNS likely to remain off in EMU - Turn on prior to discharge I spoke with Divina, Stated kiki took (11/22) PM AED & morning 6/24 AM AED's at 11 pm last night. Patient went [facility] ED and was told to not take 6/24 AM AED's. Mom wanted to know if this was ok. Mom was educated information was correct. Mom stated Kiki is feeling better (little stomach ache) will take PM dose tonight. Per mom Onfi 20/20 LEV 1500/1500 ZNS 200/300 LCM 200/200 CZP 0.5 mg prn Routed for review Mary Ellen Mccracken, RN * Telephone Encounter - CHATA Manzano - 11/23/2021 3:21 PM EDT Medication Concern Person Calling Divina Ware Name of medication ASMs Concern with medication Patient overdose on the night dosage. ER told mom to skip morning dose. Momwants to know is this ok Patient of Dr. Rothman documented in this encounterThe [facility]06-17-2022 Miscellaneous Notes* Telephone Encounter - Yudith Cline LPN - 11/16/2021 3:09 PM EDT Pt notified and will try to go to the lab either today or tomorrow. Yudith Cline LPN * Telephone Encounter - Karthikeyan Mcdaniel MD - 11/16/2021 3:01 PM EDT Patient's seizure medications make irregular bleeding more likely with the Nexplanon. I am not surprised that she has irregular bleeding. I will order a CBC for her to get drawn. Karthikeyan Mcdaniel MD * Telephone Encounter - Sixto Espitia RN - 11/16/2021 2:27 PM EDT Patient had Nexplanon inserted 06/08/21. For last 2 months she has been having intermittent bleeding.Has bled more days then not. Today she is changing pad every 2 hours, but it is not completely saturated at all. No chest pain, shortness of breath or dizziness. Does feel fatigued and is having intermittent cramping with it. Rated pain anywhere from 6-10/10 on the pain scale when it does occur. Has only taken tylenol and sometimes a heating pad. Advised can try NSAID like ibuprofen. Please advise. Sixto Espitia RN documented in this encounterThe [facility]06-04-2022 Hospital Discharge instructions Patient Education 2021 23:13:15 Self-Care for Epilepsy Self-Care for Epilepsy You can do many things to help control your seizures. First, follow your treatment plan. If your healthcare provider has prescribed medicines, take them as directed. Keep your appointments with your primary care nurse, healthcare provider, or neurologist. Also, take the following steps. Track and stay away from triggers Triggers are things that seem to cause (provoke) seizures. Keep track of your triggers and try to prevent them or stay away from them. Here are 2 common triggers and ways to cope with them: Too little sleep. Get enough sleep. If you have trouble sleeping, talk with your healthcare provider. Alcohol and drugs. Don t drink alcohol. Never take any illegal drugs. If you do have substance abuse issues, talk with your healthcare provider about the safest way to become free of alcohol and drugs. Keep a healthy lifestyle A healthy lifestyle can help you feel good and cope better with epilepsy. Exercise often. Frequent exercise can help keep you healthy. Try to exercise for 30 minutes most days of the week. Yoga is a good choice. SPAN: Eat well and regularly. Good nutrition can give you energy and make you feel better. Eat lotsof fruits, vegetables, and whole grains. Don't skip meals, because seizures are more likely if you have low blood sugar. SPAN: Control stress. Keeping stress levels low can help you cope better with epilepsy. To manage stress, try an exercise program. SPAN: Manage illness. Get proper treatment when you re sick. Check with your healthcare provider and pharmacist about the risk of seizures with medicines you take for illnesses. If your healthcare provider has prescribed antiepileptic medicines, take them even when you re ill. [id number] [employer] [address] [place] [address]. All rights reserved. This information is not intended as a substitute for professional medical care. Always follow yourhealthcare professional's instructions. Follow Up Care 2021 22:42:52 With:RENÉE CORBETT MD Address: [address] [place] [address]- When:2-4 days [facility] 06-03-2022 Miscellaneous Notes* Telephone Encounter - Karrie Perkins PA-C - 2021 10:04 PM EDT Received NOC regarding concern for seizures. Mother reports that earlier patient took 7 tablets of Promethazine recently prescribed by an ED physician. She was concerned for increased seizures (head drop and eye fluttering) and inquired about interactions between such doses of Promethazine and rescue medication of Klonopin. States she called poison control regarding the high Promethazine dose andwas advised to continue to monitor Sunshyne. Mother states she has been very drowsy. I advised to consult poison control regarding any interactions between high Promethazine dosing and Klonopin as Klonopin would likely cause her to be increasingly sedated. I advised to go to the ED if there was increasing concern for seizure activity and increased drowsiness. Karrie Perkins PA-C 2021 documented in this encounterThe [facility]05-25-2022 Miscellaneous Notes* Telephone Encounter - Josefina Gutierrez APRN.CNP - 10/24/2021 8:39 AM EDT The following approved medication requests have been transmitted electronically. Signed Prescriptions Disp Refills clonazePAM (KLONOPIN) 0.5 mg tablet 10 tablet 1 Sig: Take 1 tablet by mouth as needed (for seizures lasting longer than 3 minutes or cluster of seizures) for up to 180 days. SHEILA Class: C-IV MARK: No Authorizing Provider: JOSEFINA GUTIERREZ APRN.CNP documented in this encounterThe [facility]04-20-2022 Miscellaneous Notes* Telephone Encounter - Sobeida Kyle APRN.CNP - 09/19/2021 11:46 AM EDT The following approved medication requests have been transmitted electronically. Signed Prescriptions Disp Refills cloBAZam (ONFI) 10 mg tab tablet 360 tablet 0 Sig: Take 2 tablets by mouth twice daily for 90 days. = SHEILA Class: C-IV MARK: No Authorizing Provider: SOBEIDA KYLE APRN.MEDICAL OFFICE COORDINATOR * Telephone Encounter - Nasra BRIZUELA - 09/19/2021 11:37 AM EDT Prescription Refill: PT OUT OF MEDS Requested by: parent Please Call in Caller Contact Number: [phone] (home) Pharmacy Name: [facility] Pharmacy Number: [id number] Generic/ brand: generic 30 or 90 day supply requested: 90 Last appointment: 07/23/21 Next Appointment: none Patient of Dr. rothman Last refilled by Zenia Tracy LPN documented in [place] encounterChad [place] [address]-19-2022 Miscellaneous Notes* Telephone Encounter - Nathaniel Mckinney RN - 09/18/2021 11:31 AM EDT I called patient. She will call her PCP to evaluate. Patient states she has been having pelvic painand had brown discharge yesterday. Would like to be seen later this week by KJ. Appointment made * Telephone Encounter - Karthikeyan Mcdaniel MD - 09/18/2021 11:19 AM EDT I would encourage her to see primary care for headache evaluation. If headache is severe or worst headache of her life she should go to the ED. In general persistent headaches are not common with nexplanon. Karthikeyan Mcdaniel MD * Telephone Encounter - Yudith Cline LPN - 09/17/2021 2:55 PM EDT Pt calling and stated that she is getting headaches and cramping with the nexplanon. Pt unable to verify if this is only occurring prior to her menses or if this is happening daily. Pt cannot speak to frequency of headaches. She did report that she has to use tylenol but this only offers minimal relief. Pt is not wanting the nexplanon removed she is just wanting to obtain relief. Pt was offered an appointment but declined and wanted to wait for response from Dr. Mcdaniel. Pt is aware that Dr Mcdanielis out of the office until 09/18/21. Please advise Yudith Cline LPN] documented in this encounterThe [facility]03-28-2022 Miscellaneous Notes* Telephone Encounter - Modesta Santos - 08/27/2021 2:13 PM EDT Patient given results and verbalized understanding of instructions given. Modesta Santos * Telephone Encounter - Annalisa Chery LPN - 08/25/2021 12:41 PM EDT Phone call placed spoke to patient verified by name, date of call disconnected, returned callno answer. Patient was not given results. Annalisa Chery LPN * Telephone Encounter - Annalisa Chery LPN - 08/25/2021 12:39 PM EDT ----- Message from Ava Chavez APRN.MEDICAL OFFICE COORDINATOR sent at 08/25/2021 8:10 AM EDT ----- Please advise patient of negative COVID and influenza test (result not viewed on [employer]). Ava Chavez APRN.CNP documented in this encounterThe [facility] Of [facility]03-24-2022 Miscellaneous Notes* Telephone Encounter - Sobeida Kyle APRN.CNP - 08/23/2021 10:05 AM EDT The following approved medication requests have been transmitted electronically. Signed Prescriptions Disp Refills levETIRAcetam (KEPPRA) 500 mg tablet 540 tablet 0 Sig: Take 3 tablets by mouth twice daily. MARK: No Authorizing Provider: SOBEIDA KYLE zonisamide (ZONEGRAN) 100 mg capsule 450 capsule 0 Sig: Take 2 capsules by mouth every morning AND 3 capsules every evening. MARK: No Authorizing Provider: SOBEIDA KYLE APRN.MEDICAL OFFICE COORDINATOR documented in this encounterThe [facility]03-23-2022 History of Present illness Narrative* Machelle Samson PA-C - 08/22/2021 6:51 PM EDT This note was created using [employer]. Subjective Kiki Ware is a 20 year old female. HPI Patient presents with sore throat, nasal congestion. Cough since last night. Her boyfriend was in recently and tested positive for strep. She denies hx of covid19. No fever. No nvd. No loss of smell or taste. No chest pain or sob. Review of Systems Constitutional: Negative. HENT: Positive for congestion, rhinorrhea and sore throat. Negative for ear pain. Respiratory: Positive for cough. Cardiovascular: Negative. Gastrointestinal: Negative. Genitourinary: Negative. Musculoskeletal: Negative. All other systems reviewed and are negative. PAST MEDICAL HISTORY Diagnosis Date ADHD (attention deficit hyperactivity disorder) Anxiety Esophageal reflux Intractable epilepsy without status epilepticus (HCC) Seizure disorder (HCC) Traumatic brain injury (HCC) concussion at age year old Current Outpatient Medications Medication Sig Dispense Refill lacosamide (VIMPAT) 200 mg Take 1 tablet by mouth twice daily for 180 days. 180 tablet 1 levETIRAcetam (KEPPRA) 500 mg tablet Take 3 tablets by mouth twice daily. 540 tablet 0 zonisamide (ZONEGRAN) 100 mg capsule Take 2 capsules by mouth every morning AND 3 capsules every evening. 450 capsule 0 clonazePAM (KLONOPIN) 0.5 mg tablet Take 1 tablet by mouth as needed for up to 10 doses. 10 tablet 1 triamcinolone acetonide (KENALOG) 0.1 % cream Apply to affected area twice daily. As needed for itching. 28.4 g 0 cloBAZam (ONFI) 10 mg tab tablet Take 10 mg by mouth twice daily. 1 1/2 tablets in the morning and 2 tablets at night Magnesium 250 mg tab Take 250 mg by mouth twice daily. 1 tablet in the morning and 1 tablet at night Cholecalciferol, Vitamin D3, (VITAMIN D-3) 2,000 unit cap Take 1 tablet by mouth once daily. folic acid 400 mcg tablet Take 400 mcg by mouth once daily. Pyridoxine HCl (VITAMIN B-6) 250 mg tablet Take 250 mg by mouth once daily. No current facility-administered medications for this visit. PAST SURGICAL HISTORY Procedure Laterality Date NONE FAMILY HISTORY Problem Relation Age of Onset Heart Paternal Grandfather [place] Asthma Brother outgrown asthma Asthma Brother outgrown asthma Allergies Brother Allergies Brother Diabetes Maternal Aunt Social History Tobacco Use Smoking status: Never Smoker Smokeless tobacco: Never Used Tobacco comment: smoking outside per mom Vaping Use Vaping Use: Never used Substance Use Topics Alcohol use: Yes Comment: special occasions Drug use: Yes Types: Marijuana Objective BP 122/80 Pulse 80 Temp 37.3 C (99.1 F) (Tympanic) Resp 18 Wt 78.3 kg (172 lb 9.6 oz) LMP06/02/2021 SpO2 98% BMI 30.57 kg/m Physical Exam Vitals reviewed. Constitutional: Appearance: Normal appearance. HENT: Head: Normocephalic and atraumatic. Right Ear: Tympanic membrane, ear canal and external ear normal. Left Ear: Tympanic membrane, ear canal and external ear normal. Nose: Congestion present. Mouth/Throat: Mouth: Mucous membranes are moist. Pharynx: Oropharynx is clear. No oropharyngeal exudate or posterior oropharyngeal erythema. Cardiovascular: Rate and Rhythm: Normal rate and regular rhythm. Heart sounds: Normal heart sounds. Pulmonary: Effort: Pulmonary effort is normal. Breath sounds: Normal breath sounds. Musculoskeletal: Cervical back: Neck supple. Lymphadenopathy: Cervical: No cervical adenopathy. Skin: General: Skin is warm and dry. Findings: No rash. Neurological: General: No focal deficit present. Mental Status: She is alert and oriented to person, place, and time. Assessment and Plan ASSESSMENT/PLAN: 1. Sore throat - ICD9: 462, ICD10: J02.9 (primary diagnosis) - Alere Strep Test negative, no culture pending - ALERE STREP A TEST (AG) 2. Viral URI - ICD9: 465.9, ICD10: J06.9 - Discussed viral etiology and rationale for treatment. - Symptomatic treatment with prn analgesia - Supportive care with fluids and rest - COVID WITH FLUA+B, ROUTINE Machelle Samson PA-C documented in this encounterThe [facility]04-09-2021 NoteDischarge/Transfer Summary Name: Kiki Ware MR#: [id number] : 2000 Room #: 6109/01 Age/Sex: 19 y.o. female Admit Date: 09/07/2020 Admitting: Elle Nayak MD Discharge Date: 09/08/2020 Discharged from: [facility] Attending: Last Styles MD Final Diagnosis: Increasing frequency of seizure activity Significant Findings (Problem List): Active Hospital Problems Diagnosis Increasing frequency of seizure activity Resolved Hospital Problems No resolved problems to display. 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 OSH ED: Given ativan 0.5mg, 500cc NSB, and Keppra 6mg/kg (500mg). CBC and CMP WNL. UA negative. Lactic acid 0.7, UDS + benzos. COVID antigen did not result. Keppra level pending. She was transferred to [facility] For further care. Continuous EEG, showed no unequivocal seizures were recorded and pattern was consistent with previous studies. At this time, increase in frequency may be due to medication non-compliance, worsening of baseline disease or viral trigger. Medication changes included 100 IV vimpat was loaded and then increased to 150mg in AM and 100mg QHS. Patient and mom was counseled on seizure and return precautions and was stable for discharge with close follow up with adult neuro. [facility] CBC: WBC 5, Hgb 13, Hct 41, Plt 246 Differential: Neutrophil: 59, Lymph 30, [place] 8 CMP: Na 140, K 3.9, Cl 112, HCO3 24, BUN 12, Cr 0.9, Glu 94, Ca 8.7, T bili 0.3, T prot 7, Alb 3.7, ALT 30, AST 15, Alk phos 117. UA: Lactic acid: 0.7 UDS: + benzo COVID (antigen) UA negative Keppra level pending Pending clobazam, lacosamide, levetiracetam, zonisamide levels EEG: INTERPRETATION: During this awake and sleep epoch of continuous digital EEG/Video monitoring with scalp electrodes, the EEG was abnormal due to the presence of mild diffuse background slowing, excess of low voltage fast activity(medication related) and frequent, most likely interictal bursts of waxing and waning generalized, irregular polyspike and slow ave discharges while awake and asleep and high voltage runs of paroxysmal fast activity seen when asleep. No unequivocal seizures were recorded. 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 Gen: alert, oriented Neuro: CN II-XI intact, strength equal BL, sensation intact BL Immunizations(administered this admission):None Significant Imaging Results: None No orders to display Pending Test Results and Tests to Obtain as Outpatient: In-Process Results Date and Time Order Name Sensitivity Status Description Specimen ID Source 09/08/2020 6:49 AM Zonisamide/Zonegran In process [id number] 09/08/2020 6:49 AM Levetiracetam/Keppra, trough In process [id number] 09/08/2020 6:49 AM Lacosamide, Serum In process [id number] 09/08/2020 6:49 AM Clobazam and metabolite, S In process [id number] Preliminary Results No orders found from 08/10/2020 to 09/09/2020. Disposition: She was discharged to home. Discharge Medications: She did have significant changes to their home medications (see below) Medication List CONTINUE taking these medications which HAVE changed Morning Afternoon Evening Bedtime As Needed lacosamide 50 MG tablet Take 3 tablets (150mg) in the morning, 2 tablets (100mg) at night What changed: additional instructions Commonly known as: VIMPAT [ ] [ ] [ ] [ ] [ ] levETIRAcetam 500 MG tablet 3 tablets by mouth two times daily What changed: See the new instructions. Commonly known as: KEPPRA [ ] [ ] [ ] [ ] [ ] CONTINUE taking these medications which HAVE NOT changed at this visit Morning Afternoon Evening Bedtime As Needed cloBAZam 20 MG tablet TAKE ONE TABLET BY MOUTH TWICE DAILY Commonly known as: ONFI [ ] [ ] [ ] [ ] [ ] clonazePAM 0.5 MG disintegrating tablet Take 2 Tabs (1 mg) by mouth as needed (cluster seizure) Commonly known as: KlonoPIN [ ] [ ] [ ] [ ] [ ] [employer] D3 50 MCG (1999 UT) Caps TAKE 1 CAPSULE BY MOUTH EVERY DAY Generic drug: Cholecalciferol [ ] [ ] [ ] [ ] [ ] FAMOTIDINE PO Take by mouth Twice daily [ ] [ ] [ ] [ ] [ ] folic acid 1 MG tablet TAKE 1 TABLET BY MOUTH EVERY DAY Commonly known as: FOLVITE [ ] [ ] [ ] [ ] [ ] KIDS GUMMY BEAR VITAMINS PO Take by mouth daily. [ ] [ ] [ ] [ ] [ ] Melatonin 3-10 MG Tabs Take 5 mg by mouth At bedtime. [ ] [ ] [ ] [ ] [ ] Midazolam 10 MG/2ML intranasal (2mL vial) 2 mL (more content not included)...[facility]04-08-2021 Note MEDICAL ADMISSION HISTORY AND PHYSICAL Date of Service: 09/08/2020 Attending Provider: Angie Liu MD Primary Care Provider: Renée Corbett MD Chief Complaint: Abnormal Movements Reason for Hospitalization: Acute or unresolved changes in physiologic status History of Present illness: IP H&P HPI: Kiki is a 19 y.o. 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 She is accompanied by her parents. The history is provided by the parent. MANAGER NET: Today mom states that 1 week prior to presentation, the patient had new/atypical seizures, describes seizure of unresponsiveness and eye flutter and falls each morning for 3 days, the last day resulting in an abrasion to the back of her head resulting in ER visit. Was seen as outpatient for increased seizures with on Dr. Ulrich 09/06. At that time, she was to continue Vimpat, Keppra, Zonegra and Onfi at current doses. She was to use Clonazepam 0.5-1mg rescue for seizures. On DOA, Kiki had multiple similar seizures of unresponsiveness, eye blinking and falling that again clustered shortly upon awakening. Mom states she woke up, was getting dressed, hit the floor. Mom states she comes back to baseline . Mom was concerned that she fell and hit her head twice. Mom gave 3 Klonopin 1 mg then another 0.5 mg for continued cluster and called EMS. She had a total of ~20 drop seizures over 1.5 hours. She did not have any GTC seizures today. Last GTC seizures was 6 months ago in Mar 2020. Otherwise: no cough, congestion, runny nose, fever Her parents deny missed doses although admitted that she does not like taking meds. Kiki also endorsed privtaely that she drank a case of twisted teas on night (the night prior to onset of these seizures. Seizure description = eyes flutter then she loses all tone of her body. If she is standing, she will fall. They usually last ~30 seconds, and she returns to baseline almost immediately afterwards. Of note, her normal seizures are absence or tonic clonic seizures OSH ED: Given ativan 0.5mg, 500cc NSB, and Keppra 6mg/kg (500mg). CBC and CMP WNL. UA negative. Lactic acid 0.7, UDS + benzos. COVID antigen did not result. Keppra level pending. She was transferred to [facility] For further care. On the floor: Back at baseline per mom. She is appropriately interactive with exam. Agree with above Review of Systems: POSITIVES ARE IN BOLD CONST: fever, weight loss NEURO: headache, weakness, numbness, abnormal movements Eyes: eye pain, discharge ENT: ear pain, rhinorrhea, sore throat RESP: cough, shortness of breath CV: palpitations, chest pain GI: vomiting, diarrhea, abdominal pain : dysuria, hematuria, discharge SKIN: rashes, itching MSK: muscle, bone, joint pain HEME: bruising, bleeding PSYCH: mood changes, feelings of depression Medical/Surgical History: Past Medical History: Diagnosis Date ADHD (attention deficit hyperactivity disorder) Seizure 2009 unprovoked seizure x 2, no AEDs Sleep disorder Past Surgical History: Procedure Laterality Date NO PAST SURGICAL HISTORY VAGAL NERVE STIMULATION Left 02/27/2017 VAGAL NERVE STIMULATOR REVISION performed by Alyssa Brown MD at [facility] OR History: History Weight: 3.374 kg Delivery Method: Vaginal Gestation Age: 41 wks NICU--GERD Development History: Milestones: Delayed with - Mom states her IQ is at a 3rd grade level Diet History: Age appropriate / normal for age Drug/Food Allergies: No Known Allergies Immunizations: Immunization History Administered Date(s) Administered DTaP 01/14/2002, 03/24/2002, 05/13/2002, 06/17/2003, 01/15/2007 HIB 01/14/2002, 03/29/2002, 05/13/2002, 06/17/2003 Hepatitis B Ped/Adol 2000, 2000, 08/05/2002 IPV 01/14/2002, 03/24/2002, 05/13/2002, 01/15/2007 Influenza Vaccine 05/06/2003, 04/27/2004 MMR 12/15/2002, 01/15/2007 Pneumococcal Conjugate 01/14/2002, 03/24/2002, 01/01/2005, 01/10/2006 Tdap 03/10/2015 Varicella 12/15/2002, 01/15/2007 Medications: Medications Prior to Admission Medication Sig Dispense Refill Last Dose [facility] D3 50 MCG (1999 UT) CAPS TAKE 1 CAPSULE BY MOUTH EVERY DAY 30 Cap 4 levETIRAcetam (KEPPRA) 500 MG tablet TAKE 2.5 TABLETS IN THE MORNING AND 3 TABLETS IN THE EVENING (Patient taking differently: 3 tablets by mouth two times daily) 165 Tab 3 zonisamide (ZONEGRAN) 100 MG capsule Take 2 caps in AM and 3 caps in PM 150 Cap 3 cloBAZam (ONFI) 20 MG tablet TAKE ONE TABLET BY MOUTH TWICE DAILY 60 Tab 3 folic acid (FOLVITE) 1 MG tablet TAKE 1 TABLET BY MOUTH EVERY DAY 30 Tab 11 pyridoxine (VITAMIN B-6) 100 MG TABS TAKE 1 TABLET BY MOUTH EVERY DAY 30 Tab 5 lacosamide (VIMPAT) 50 MG tablet TAKE 2 TABS IN THE MORNING AND 1 TAB AT BEDTIME. 90 Tab 3 clonazePAM (KLONO (more content not included)...[facility] Evaluation + Plan note No data available for this section [facility] Evaluation note* Diagnosis Sore throat- Primary Acute pharyngitis Viral URI Acute upper respiratory infections of unspecified site [facility] Diagnosis Generalized epilepsy (HCC) Unspecified epilepsy without mention of intractable epilepsy Convulsions, unspecified convulsion type (HCC) [facility] noteNo assessment information availableW[facility] Work Phone: Evaluation note* Diagnosis Generalized epilepsy (HCC)- Primary Unspecified epilepsy without mention of intractable epilepsy [facility]* Diagnosis Convulsions, unspecified convulsion type (HCC) [facility]* Diagnosis Irregular bleeding- Primary Irregular menstrual cycle [facility]* Diagnosis Generalized epilepsy (HCC) Unspecified epilepsy without mention of intractable epilepsy [facility]* Diagnosis Nexplanon removal- Primary Surveillance of previously prescribed implantable subdermal contraceptive [facility] Diagnosis Nexplanon removal- Primary Surveillance of previously prescribed implantable subdermal contraceptive [facility]* Diagnosis Encounter for initial prescription of implantable subdermal contraceptive- Primary [facility]* Diagnosis Missed period- Primary Irregular menstrual cycle Positive urine test examination or test, positive result [facility]* Diagnosis Missed menses- Primary Absence of menstruation Positive urine test examination or test, positive result [facility]* Diagnosis Encounter for test, result positive- Primary examination or test, positive result Intractable generalized epilepsy (HCC) Unspecified epilepsy with intractable epilepsy First trimester state, incidental Generalized epilepsy (HCC) Unspecified epilepsy without mention of intractable epilepsy [facility]* Diagnosis S/P placement of VNS (vagus nerve stimulation) device Other postprocedural status Generalized epilepsy, intractable (HCC) Unspecified epilepsy with intractable epilepsy [facility]* Diagnosis with uncertain dates in first trimester- Primary S/P placement of VNS (vagus nerve stimulation) device Other postprocedural status Generalized epilepsy, intractable (HCC) Unspecified epilepsy with intractable epilepsy [facility]* Diagnosis Early stage of - Primary state, incidental [facility]* Diagnosis , supervision, high-risk, first trimester- Primary Obesity in Obesity complicating , childbirth, or the puerperium, unspecified as to episode of care or not applicable Generalized epilepsy, intractable (HCC) Unspecified epilepsy with intractable epilepsy [facility]* Diagnosis related nausea, antepartum- Primary Mild hyperemesis gravidarum, antepartum Generalized epilepsy, intractable (HCC) Unspecified epilepsy with intractable epilepsy Patient request for diagnostic testing Other specified examination [facility]* Diagnosis Generalized epilepsy, intractable (HCC)- Primary Unspecified epilepsy with intractable epilepsy Supervision of high risk , antepartum [facility]* Diagnosis Pelvic pressure in - Primary Other specified complication, antepartum [facility] Diagnosis Generalized epilepsy, intractable (HCC)- Primary Unspecified epilepsy with intractable epilepsy Supervision of high risk , antepartum 11 weeks gestation of state, incidental [facility] this [facility]* Diagnosis Seizure disorder during , antepartum (HCC)- Primary Generalized epilepsy, intractable (HCC) Unspecified epilepsy with intractable epilepsy Supervision of high risk , antepartum Obesity complicating , first trimester [facility]* Diagnosis Generalized epilepsy (HCC) Unspecified epilepsy without mention of intractable epilepsy Convulsions, unspecified convulsion type (HCC) documented [facility]* Diagnosis Generalized epilepsy (HCC) Unspecified epilepsy without mention of intractable epilepsy Convulsions, unspecified convulsion type (HCC) documented [facility] this [facility]* Diagnosis Generalized epilepsy (HCC) Unspecified epilepsy without mention of intractable epilepsy Convulsions, unspecified convulsion type (HCC) documented [facility]* Diagnosis Epilepsy affecting , antepartum (HCC)- Primary [facility]* Diagnosis Family history of carrier of genetic disease- Primary Family history of genetic disease carrier [facility]* Diagnosis 14 weeks gestation of - Primary state, incidental Pelvic pain affecting in second trimester, antepartum Acute bilateral low back pain without sciatica documented [facility] this [facility]* Diagnosis 15 weeks gestation of - Primary state, incidental Supervision of other high risk pregnancies, first trimester Generalized epilepsy, intractable (HCC) Unspecified epilepsy with intractable epilepsy Encounter for screening of mother Unspecified screening [facility]* Diagnosis 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, antepartum, single or unspecified fetus- Primary Family history of carrier of genetic disease Family history of genetic disease carrier Seizure disorder during (multiple AEDs; vagal nerve stimulator) Vaginal bleeding in , second trimester care Unspecified high-risk documented [facility]* Diagnosis Encounter for anatomic survey- Primary Seizure disorder during (multiple AEDs; vagal nerve stimulator) Obesity complicating , second trimester 19 weeks gestation of state, incidental [facility]* Diagnosis Convulsions, unspecified convulsion type (HCC) documented [facility] this [facility]* Diagnosis 22 weeks gestation of - Primary state, incidental High-risk in second trimester [facility]* Diagnosis Encounter for follow-up ultrasound of anatomy- Primary 19 weeks gestation of state, incidental High-risk in second trimester [facility]* Diagnosis Seizure disorder during (multiple AEDs; vagal nerve stimulator)- Primary Obesity complicating , second trimester 25 weeks gestation of state, incidental [facility]* Diagnosis Seizure disorder during , antepartum (HCC)- Primary Obesity complicating , second trimester 27 weeks gestation of state, incidental High-risk in second trimester documented [facility] this [facility]* Diagnosis Generalized epilepsy (HCC) Unspecified epilepsy without mention of intractable epilepsy S/P placement of VNS (vagus nerve stimulation) device Other postprocedural status Generalized epilepsy, intractable (HCC) Unspecified epilepsy with intractable epilepsy documented [facility] this [facility]* Diagnosis Generalized epilepsy (HCC)- Primary Unspecified epilepsy without mention of intractable epilepsy [facility]* Diagnosis Supervision of high risk in third trimester- Primary Unspecified high-risk Seizure disorder during (multiple AEDs; vagal nerve stimulator) Obesity complicating , first trimester 28 weeks gestation of state, incidental Need for vaccination Need for prophylactic vaccination and inoculation against unspecified single disease [facility]* Diagnosis Abnormal glucose complicating - Primary Abnormal maternal glucose tolerance, complicating , childbirth, or the puerperium, unspecified as to episode of care Anemia affecting in third trimester [facility]* Diagnosis 29 weeks gestation of - Primary state, incidental Supervision of high risk in third trimester Unspecified high-risk Decreased movements, third trimester, fetus 1 [facility]* Diagnosis Abnormal glucose complicating - Primary Abnormal maternal glucose tolerance, complicating , childbirth, or the puerperium, unspecified as to episode of care [facility]* Diagnosis 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, antepartum, single or unspecified fetus- Primary [facility]* Diagnosis Generalized epilepsy (HCC)- Primary Unspecified epilepsy without mention of intractable epilepsy [facility]* Diagnosis Seizure disorder during (multiple AEDs; vagal nerve stimulator)- Primary Obesity complicating , third trimester 32 weeks gestation of state, incidental documented [facility]* Diagnosis Onset Date Resolution Status Breakthrough seizure acute acute Seizure disorder acute [facility] Work Phone: Evaluation note* Diagnosis , supervision, high-risk, third trimester- Primary Seizure disorder during in third trimester (HCC) Abnormal glucose complicating Abnormal maternal glucose tolerance, complicating , childbirth, or the puerperium, unspecified as to episode of care Obesity affecting in third trimester 33 weeks gestation of state, incidental [facility]* Diagnosis Convulsions, unspecified convulsion type (HCC) documented [facility] this [facility]* Diagnosis Seizure disorder (HCC)- Primary Unspecified epilepsy without mention of intractable epilepsy [facility]* Diagnosis Seizure disorder during (multiple AEDs; vagal nerve stimulator) documented [facility]* Diagnosis Obesity affecting in third trimester- Primary Seizure disorder during in third trimester (HCC) documented [facility]* Diagnosis Seizure disorder during (multiple AEDs; vagal nerve stimulator)- Primary documented [facility]* Diagnosis Convulsions, unspecified convulsion type (HCC) documented [facility] this [facility]* Diagnosis 35 weeks gestation of - Primary state, incidental Seizure disorder during (multiple AEDs; vagal nerve stimulator) documented [facility] this encounter [facility]* Diagnosis On antiepileptic therapy- Primary 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) documented [facility] this [facility]* Diagnosis Encounter for supervision of normal in third trimester, unspecified - Primary Seizure disorder during in third trimester (HCC) documented [facility] this [facility]* Diagnosis 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)- Primary documented [facility]* Diagnosis 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)- Primary documented [facility]* Diagnosis Encounter for initial prescription of injectable contraceptive- Primary General counseling for initiation of other contraceptive measures control counseling General counseling for initiation of other contraceptive measures Class 1 obesity with body mass index (BMI) of 34.0 to 34.9 in adult, unspecified obesity type, unspecified whether serious comorbidity present History of seizure Personal history of other disorders of nervous system and sense organs [facility]* Diagnosis Encounter for surveillance of other contraceptive- Primary documented in this [facility]* Diagnosis Generalized idiopathic epilepsy and epileptic syndromes, intractable, 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 Seizure (HCC) Other convulsions On antiepileptic therapy S/P placement of VNS (vagus nerve stimulation) device Other postprocedural status documented [facility] this encounter [facility]* Diagnosis Generalized idiopathic epilepsy and epileptic syndromes, intractable, 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 documented [facility] this [facility]* Diagnosis Generalized idiopathic epilepsy and epileptic syndromes, intractable, 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 [facility] Diagnosis Generalized idiopathic epilepsy and epileptic syndromes, intractable, 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 [facility]* Diagnosis Seizure (HCC) Other convulsions Generalized epilepsy (HCC) Unspecified epilepsy without mention of intractable epilepsy [facility] Diagnosis Seizure (HCC)- Primary Other convulsions [facility]* Diagnosis Generalized idiopathic epilepsy and epileptic syndromes, intractable, 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 [facility] Diagnosis Encounter for initial prescription of injectable contraceptive General counseling for initiation of other contraceptive measures [facility] Diagnosis Late menses- Primary Other disorder of menstruation and other abnormal bleeding from female genital tract Acute midline low back pain without sciatica [facility]* Diagnosis Encounter for surveillance of injectable contraceptive- Primary Surveillance of other previously prescribed contraceptive method Encounter for management and injection of depo-Provera Surveillance of other previously prescribed contraceptive method [facility]* Diagnosis Generalized idiopathic epilepsy and epileptic syndromes, intractable, 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 Seizure (HCC) Other convulsions Generalized epilepsy (HCC) Unspecified epilepsy without mention of intractable epilepsy S/P placement of VNS (vagus nerve stimulation) device Other postprocedural status [facility] Diagnosis Generalized idiopathic epilepsy and epileptic syndromes, intractable, 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 [facility] Diagnosis Generalized epilepsy (HCC) Unspecified epilepsy without mention of intractable epilepsy [facility] Diagnosis Encounter for gynecological examination (general) (routine) without abnormal findings- Primary Screening for STD (sexually transmitted disease) Screening examination for venereal disease Screening for cervical cancer Screening for malignant neoplasm of the cervix Encounter for screening for human papillomavirus (HPV) Special screening examination for human papillomavirus (HPV) Screen for STD (sexually transmitted disease) Screening examination for venereal disease Unprotected sexual intercourse Problems related to high-risk sexual behavior [facility]* Diagnosis 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, antepartum, single or unspecified fetus- Primary Family history of carrier of genetic disease Family history of genetic disease carrier Seizure disorder during (multiple AEDs; vagal nerve stimulator) Vaginal bleeding in , second trimester care Unspecified high-risk Seizure disorder during (multiple AEDs; vagal nerve stimulator) Encounter for management and injection of depo-Provera- Primary Surveillance of other previously prescribed contraceptive method [facility]* Diagnosis 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, antepartum, single or unspecified fetus- Primary Family history of carrier of genetic disease Family history of genetic disease carrier Seizure disorder during (multiple AEDs; vagal nerve stimulator) Vaginal bleeding in , second trimester care Unspecified high-risk Seizure disorder during (multiple AEDs; vagal nerve stimulator) Generalized epilepsy (HCC) Unspecified epilepsy without mention of intractable epilepsy [facility] Diagnosis 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, antepartum, single or unspecified fetus- Primary Family history of carrier of genetic disease Family history of genetic disease carrier Seizure disorder during (multiple AEDs; vagal nerve stimulator) Vaginal bleeding in , second trimester care Unspecified high-risk Seizure disorder during (multiple AEDs; vagal nerve stimulator) Generalized idiopathic epilepsy and epileptic syndromes, intractable, 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 S/P placement of VNS (vagus nerve stimulation) device Other postprocedural status Polypharmacy Encounter for long-term (current) use of other medications [facility]* Diagnosis 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, antepartum, single or unspecified fetus- Primary Family history of carrier of genetic disease Family history of genetic disease carrier Seizure disorder during (multiple AEDs; vagal nerve stimulator) Vaginal bleeding in , second trimester care Unspecified high-risk Seizure disorder during (multiple AEDs; vagal nerve stimulator) Generalized idiopathic epilepsy and epileptic syndromes, intractable, 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 S/P placement of VNS (vagus nerve stimulation) device Other postprocedural status Polypharmacy Encounter for long-term (current) use of other medications documented [facility]* Diagnosis 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, antepartum, single or unspecified fetus- Primary Family history of carrier of genetic disease Family history of genetic disease carrier Seizure disorder during (multiple AEDs; vagal nerve stimulator) Vaginal bleeding in , second trimester care Unspecified high-risk Seizure disorder during (multiple AEDs; vagal nerve stimulator) Encounter for other general counseling or advice on contraception- Primary [facility]* Diagnosis 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, antepartum, single or unspecified fetus- Primary Family history of carrier of genetic disease Family history of genetic disease carrier Seizure disorder during (multiple AEDs; vagal nerve stimulator) Vaginal bleeding in , second trimester care Unspecified high-risk Seizure disorder during (multiple AEDs; vagal nerve stimulator) Encounter for contraceptive management, unspecified type- Primary History of epilepsy Personal history of other disorders of nervous system and sense organs [facility] [facility] Diagnosis 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, antepartum, single or unspecified fetus- Primary Family history of carrier of genetic disease Family history of genetic disease carrier Seizure disorder during (multiple AEDs; vagal nerve stimulator) Vaginal bleeding in , second trimester care Unspecified high-risk Seizure disorder during (multiple AEDs; vagal nerve stimulator) Generalized idiopathic epilepsy and epileptic syndromes, intractable, 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 [facility] Diagnosis 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, antepartum, single or unspecified fetus- Primary Family history of carrier of genetic disease Family history of genetic disease carrier Seizure disorder during (multiple AEDs; vagal nerve stimulator) Vaginal bleeding in , second trimester care Unspecified high-risk Seizure disorder during (multiple AEDs; vagal nerve stimulator) Depo-Provera contraceptive status- Primary Surveillance of other previously prescribed contraceptive method Encounter for management and injection of depo-Provera Surveillance of other previously prescribed contraceptive method [facility] this encounter [facility] Diagnosis 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, antepartum, single or unspecified fetus- Primary Family history of carrier of genetic disease Family history of genetic disease carrier Seizure disorder during (multiple AEDs; vagal nerve stimulator) Vaginal bleeding in , second trimester care Unspecified high-risk Seizure disorder during (multiple AEDs; vagal nerve stimulator) Generalized idiopathic epilepsy and epileptic syndromes, intractable, 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 [facility] Diagnosis 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, antepartum, single or unspecified fetus- Primary Family history of carrier of genetic disease Family history of genetic disease carrier Seizure disorder during (multiple AEDs; vagal nerve stimulator) Vaginal bleeding in , second trimester care Unspecified high-risk Seizure disorder during (multiple AEDs; vagal nerve stimulator) Generalized epilepsy (HCC) Unspecified epilepsy without mention of intractable epilepsy [facility] Diagnosis 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, antepartum, single or unspecified fetus- Primary Family history of carrier of genetic disease Family history of genetic disease carrier Seizure disorder during (multiple AEDs; vagal nerve stimulator) Vaginal bleeding in , second trimester care Unspecified high-risk Seizure disorder during (multiple AEDs; vagal nerve stimulator) Generalized epilepsy (HCC) Unspecified epilepsy without mention of intractable epilepsy [facility] Diagnosis 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, antepartum, single or unspecified fetus- Primary Family history of carrier of genetic disease Family history of genetic disease carrier Seizure disorder during (multiple AEDs; vagal nerve stimulator) Vaginal bleeding in , second trimester care Unspecified high-risk Seizure disorder during (multiple AEDs; vagal nerve stimulator) Generalized idiopathic epilepsy and epileptic syndromes, intractable, 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 [facility] this [facility] Diagnosis 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, antepartum, single or unspecified fetus- Primary Family history of carrier of genetic disease Family history of genetic disease carrier Seizure disorder during (multiple AEDs; vagal nerve stimulator) Vaginal bleeding in , second trimester care Unspecified high-risk Seizure disorder during (multiple AEDs; vagal nerve stimulator) Unspecified convulsions (HCC) Generalized idiopathic epilepsy and epileptic syndromes, intractable, without status epilepticus (HCC) documented in this encounter [facility] Diagnosis 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, antepartum, single or unspecified fetus- Primary Family history of carrier of genetic disease Family history of genetic disease carrier Seizure disorder during (multiple AEDs; vagal nerve stimulator) Vaginal bleeding in , second trimester care Unspecified high-risk Seizure disorder during (multiple AEDs; vagal nerve stimulator) Generalized idiopathic epilepsy and epileptic syndromes, intractable, without status epilepticus (HCC)- Primary documented in this encounter [facility]* Diagnosis 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, antepartum, single or unspecified fetus- Primary Family history of carrier of genetic disease Family history of genetic disease carrier Seizure disorder during (multiple AEDs; vagal nerve stimulator) Vaginal bleeding in , second trimester care Unspecified high-risk Seizure disorder during (multiple AEDs; vagal nerve stimulator) Generalized idiopathic epilepsy and epileptic syndromes, intractable, without status epilepticus (HCC) [facility] this [facility] Diagnosis 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, antepartum, single or unspecified fetus (HCC)- Primary Family history of carrier of genetic disease Family history of genetic disease carrier Seizure disorder during (multiple AEDs; vagal nerve stimulator) Vaginal bleeding in , second trimester (HCC) care Unspecified high-risk Seizure disorder during (multiple AEDs; vagal nerve stimulator) Encounter for other general counseling or advice on contraception- Primary Missed menses Absence of menstruation documented [facility] this encounter [facility] Diagnosis 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, antepartum, single or unspecified fetus (HCC)- Primary Family history of carrier of genetic disease Family history of genetic disease carrier Seizure disorder during (multiple AEDs; vagal nerve stimulator) Vaginal bleeding in , second trimester (HCC) care Unspecified high-risk Seizure disorder during (multiple AEDs; vagal nerve stimulator) Encounter for contraceptive management, unspecified type- Primary documented in this encounter [facility] note* Diagnosis 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, antepartum, single or unspecified fetus (HCC)- Primary Family history of carrier of genetic disease Family history of genetic disease carrier Seizure disorder during (multiple AEDs; vagal nerve stimulator) Vaginal bleeding in , second trimester (HCC) care Unspecified high-risk Seizure disorder during (multiple AEDs; vagal nerve stimulator) Encounter for management and injection of depo-Provera- Primary Surveillance of other previously prescribed contraceptive method documented [facility] this encounter [facility]* Diagnosis 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, antepartum, single or unspecified fetus (HCC)- Primary Family history of carrier of genetic disease Family history of genetic disease carrier Seizure disorder during (multiple AEDs; vagal nerve stimulator) Vaginal bleeding in , second trimester (HCC) care Unspecified high-risk Seizure disorder during (multiple AEDs; vagal nerve stimulator) Missed menses- Primary Absence of menstruation Unprotected sexual intercourse Problems related to high-risk sexual behavior Vaginal discharge Leukorrhea, not specified as infective Other specified conditions associated with female genital organs and menstrual cycle [facility] this [facility] Additional Instructions Go to the OB triage area so that they can do monitoring.[facility] Work Phone: Hospital Discharge instructions Additional Instructions keep your regular scheduled [facility] Phone: Procedure anesthesia Narrative* Procedure Summary Procedure Name Responsible Anesthesiologist Anesthesia Start Time Anesthesia Stop Time Procedure Not Yet Scheduled Events No events on file. Meds * Agents No agents on file. * Blood No blood administrations on file. Lines, Drains, and Airways No LDAs on file. documented in this encounter [facility] No data available for this section [facility] Reason for referral (narrative)* Outpatient Procedure (Routine) - Authorized Specialty Diagnoses / Procedures Referred By Nacho t Referred To Contact [facility] Diagnoses Nexplanon removal Procedures NEXPLANON REMOVAL REMOVAL NON-BIODEGRADABLE DRUG DELIVERY IMPLANT ETONOGESTREL IMPLANT SYSTEM Rachel Banks, KANWAL.MEDICAL OFFICE COORDINATOR [address] [place] [address] [facility] [address] [facility] [place] [address] Referral ID Status Reason Start Date Expiration Date Visits Requested Visits Authorized [id number] Authorized Auto-Generat ed Referral 01/08/2022 06/01/2022 1 1 [facility] for referral (narrative)* Outpatient Procedure (Routine) - Pending Review Specialty Diagnoses / Procedures Referred By Contac t Referred To Contact [facility] Diagnoses Encounter for initial prescription of implantable subdermal contraceptive Procedures NEXPLANON INSERTION ETONOGESTREL IMPLANT SYSTEM INSERT DRUG IMPLANT DEVICE Rachel Banks APRN.CNP [address] [place] [address] [address] Referral ID Status Reason Start Date Expiration Date Visits Requested Visits Authorized [id number] Pending Review Auto-Generat ed Referral 01/11/2022 01/11/2023 1 1 [facility] for referral (narrative)* Diagnostic Procedure Only (Routine) - Authorized Specialty Diagnoses / Procedures Referred By Contac t Referred To Contact [facility] Diagnoses with uncertain dates in first trimester Procedures OBSTETRIC ULTRASOUND WHI US PREG UTERUS AFTER 1ST TRIMEST GESTATION Sheila Hernandez MD [address] [place] [address] [facility] [address] [place] [address] Referral ID Status Reason Start Date Expiration Date Visits Requested Visits Authorized [id number] Authorized Auto-Generat ed Referral 02/07/2022 02/07/2023 1 1 [facility] for referral (narrative)* Diagnostic Procedure Only (Routine) - Authorized Specialty Diagnoses / Procedures Referred By Contac t Referred To Contact [facility] Diagnoses , supervision, high-risk, first trimester Obesity in Procedures NUCHAL TRANSLUCENCY WHI US NUCHAL TRANSLUCENCY 1ST GESTATION Alivia Argueta MD [address] [place] [address] [facility] [address] [place] [address] Referral ID Status Reason Start Date Expiration Date Visits Requested Visits Authorized [id number] Authorized Auto-Generat ed Referral 02/28/2022 02/28/2023 1 1 * Diagnostic Procedure Only (Routine) - Pending Review Specialty Diagnoses / Procedures Referred By Contac t Referred To Contact [facility] Diagnoses , supervision, high-risk, first trimester Obesity in Procedures OBSTETRIC ULTRASOUND WHI US PREG UTERUS AFTER 1ST TRIMEST GESTATION Alivia Argueta MD [address] [place] [address] [facility] [address] [place] [address] Referral ID Status Reason Start Date Expiration Date Visits Requested Visits Authorized [id number] Pending Review Auto-Generat ed Referral 02/28/2022 02/28/2023 1 1 [facility] for referral (narrative)* Diagnostic Procedure Only (Routine) - Pending Review Specialty Diagnoses / Procedures Referred By Contac t [facility] Diagnoses Supervision of other high risk pregnancies, first trimester Generalized epilepsy, intractable (HCC) Encounter for screening of mother Procedures OBSTETRIC ULTRASOUND WHI US PREG UTERUS AFTER 1ST TRIMEST GESTATION Sheila Hernandez MD [address] [place] [address] [facility] [address] [place] [address] Referral ID Status Reason Start Date Expiration Date Visits Requested Visits Authorized [id number] Pending Review Auto-Generat ed Referral 2 04/23/2023 1 1 [facility] for referral (narrative)* Diagnostic Procedure Only (Routine) - Authorized Specialty Diagnoses / Procedures Referred By Contac t Referred To Contact [facility] Diagnoses 28 weeks gestation of Procedures OBSTETRIC ULTRASOUND WHI US PREG UTERUS AFTER 1ST TRIMEST GESTATION Alivia Argueta MD [address] [place] [address] [id number] [place] [address] Referral ID Status Reason Start Date Expiration Date Visits Requested Visits Authorized [id number] Authorized Auto-Generat ed Referral 07/24/2022 07/24/2023 1 1 [facility] for referral (narrative)* Diagnostic Procedure Only (Routine) - Authorized Specialty Diagnoses / Procedures Referred By Contac t Referred To Contact [facility] Diagnoses Seizure disorder during , antepartum (HCC) Procedures OBSTETRIC ULTRASOUND WHI US PREG UTERUS AFTER 1ST [place] [address] [place] [address] [id number] [place] [address] Referral ID Status Reason Start Date Expiration Date Visits Requested Visits Authorized [id number] Authorized Auto-Generat ed Referral 09/03/2022 09/03/2023 1 1 * Diagnostic Procedure Only (Routine) - Authorized Specialty Diagnoses / Procedures Referred By Contac t Referred To Contact [facility] Diagnoses Seizure disorder during , antepartum (HCC) Procedures BIOPHYSICAL PROFILE US WHI BIOPHYSICAL [place] [address] [place] [address] [facility] [address] [place] [address] Referral ID Status Reason Start Date Expiration Date Visits Requested Visits Authorized [id number] Authorized Auto-Generat ed Referral 09/03/2022 09/03/2023 10 1 [facility] for referral (narrative)* Outpatient Procedure (Routine) - New Request Specialty Diagnoses / Procedures Referred By Nacho t Referred To Contact [facility] Diagnoses Nexplanon insertion Procedures NEXPLANON INSERTION ETONOGESTREL IMPLANT SYSTEM INSERT DRUG IMPLANT DEVICE Ariel Gutierrez APRN.MEDICAL OFFICE COORDINATOR [facility] [place] [address] [address] [id number] Referral ID Status Reason Start Date Expiration Date Visits Requested Visits Authorized [id number] New Request Auto-Generat ed Referral 03/05/2024 03/05/2025 1 1 [facility] for referral (narrative)* Outpatient Procedure (Routine) - New Request Specialty Diagnoses / Procedures Referred By Nacho t Referred To [facility] Diagnoses Generalized idiopathic epilepsy and epileptic syndromes, intractable, with status epilepticus (HCC) Procedures EPIL EEG ROUTINE ELECTROENCEPHALOGRAM REC COMA/SLEEP ONLY Ruben Tellez MD [address] [place] [address] [address] Referral ID Status Reason Start Date Expiration Date Visits Requested Visits Authorized [id number] New Request Auto-Generat ed Referral 05/17/2025 1 1 * Outpatient Procedure (Routine) - New Request Specialty Diagnoses / Procedures [facility] Diagnoses Generalized idiopathic epilepsy and epileptic syndromes, intractable, with status epilepticus (HCC) Procedures EPIL AMBULATORY EEG EEG COMPLETE STD PHYS/QHP&GT;84 HR W/O VID Ruben Tellez MD [address] [place] [address] [facility] [place] [facility] [address] [place] [address] Referral ID Status Reason Start Date Expiration Date Visits Requested Visits Authorized [id number] New Request Auto-Generat ed Referral 05/17/2025 1 1 [facility] for visit Narrative* Outpatient Procedure (Routine) - Closed Specialty Diagnoses / Procedures Referred By Nacho t Referred To Contact [facility] Diagnoses Nexplanon removal Procedures NEXPLANON REMOVAL REMOVAL NON-BIODEGRADABLE DRUG DELIVERY IMPLANT ETONOGESTREL IMPLANT SYSTEM Rachel Banks APRN.MEDICAL OFFICE COORDINATOR [address] [place] [address] [address] Referral ID Status Reason Start Date Expiration Date V isits Requested Visits Authorized [id number] Closed Auto-Generate d Referral 01/08/2022 06/01/2022 1 1 [facility] note* CAMRYN Geiger: PERFORM Event Display: Patient Summary Documents Authored Date: [id number] [facility] Summary Purpose Family History No Family History Records FoundNo Family History Records FoundNo Family History Records FoundNo Family History Records Found No data available for this section No Family History Records FoundNo Family History Records Found Advance Directives Documents on File Type Date Recorded Patient Flight Operation Coordinator Expl anation Advance Directive(s) 07/23/2021 6:22 PM Advance Directive Response Recorded Date/ Time Living Will No August 28, 2021 12:15pm Power of Stretching Machine Operator No August 28 12:15pm Advance Directive Response Recorded Date/ Time Living Will No October 17, 2021 1 :08pm Power of Stretching Machine Operator No October 17, 2021 1:08pm Advance Directive Response Recorded Date/ Time Living Will No April 13 5:11pm Power of Stretching Machine Operator No April 13, 2022 5:11pm Advance Directive Response Recorded Date/ Time Living Will No August 24, 2022 5:29am Power of Stretching Machine Operator No August 24 5:29am Latest Code Status on File Code Status Date Activated Date Inactivated Comments Full Code 09/30/2022 1:17 AM 10/07/2022 9:21 PM Full Code Order Discussed With: Patient Surrogate Decision Maker Latest Code Status on File Code Status Date Activated Date Inactivated Comments Full Code 09/30/2022 1:17 AM 10/07/2022 9:21 PM Question Answer Comments Full Code Order Discussed With: Patient Surrogate Decision Maker Latest Code Status on File Code Status Date Activated Date Inactivated Comments Full Code 09/30/2022 1:17 AM 10/07/2022 9:21 PM Question Answer Comments Full Code Order Discussed With: Patient Surrogate Decision Maker Advance Directive Response Recorded Date/ Time Living Will No May 02 6:23pm Power of Stretching Machine Operator No May 02, 2023 6:23pm Date Activated Date Inactivated Comments 09/30/2022 1:17 AM 10/07/2022 9:21 PM Question Answer Comments Full Code Order Discussed With: PatientSurrogate Decision Maker Date Activated Date Inactivated Comments 09/30/2022 1:17 AM 10/07/2022 9:21 PM Question Answer Comments Full Code Order Discussed With: PatientSurrogate Decision Maker Health Concerns Infection Onset Date Last Indicated Resolved Time COVID-19 Rule-Out 08/22/2021 08/22/2021 08/23/2021 11:01 AM EDT Problem Noted Date OB Reminders 02/28/2022 Problem Noted Date OB Reminders 02/28/2022 Problem Noted Date OB Reminders 02/28/2022 Problem Noted Date OB Reminders 02/28/2022 Problem Noted Date OB Reminders 02/28/2022 Problem Noted Date OB Reminders 02/28/2022 Problem Noted Date OB Reminders 02/28/2022 Problem Noted Date OB Reminders 02/28/2022 Problem Noted Date OB Reminders 02/28/2022 Problem Noted Date OB Reminders 02/28/2022 Problem Noted Date OB Reminders 02/28/2022 Problem Noted Date OB Reminders 02/28/2022 Problem Noted Date OB Reminders 02/28/2022 Problem Noted Date OB Reminders 02/28/2022 Problem Noted Date OB Reminders 02/28/2022 Problem Noted Date Bakery Associate 09/28/2022 Problem Noted Date Bakery Associate 09/28/2022 Problem Noted Date Bakery Associate 09/28/2022 Problem Noted Date Bakery Associate 09/28/2022 Problem Noted Date Bakery Associate 09/28/2022 Problem Noted Date Diagnosed Date Bakery Associate 09/28/2022 Problem Noted Date Diagnosed Date Bakery Associate 09/28/2022 Problem Noted Date Diagnosed Date Bakery Associate 09/28/2022 Problem Noted Date Diagnosed Date Bakery Associate 09/28/2022 Problem Noted Date Diagnosed Date Bakery Associate 09/28/2022 Problem Noted Date Diagnosed Date Bakery Associate 09/28/2022 Problem Noted Date Diagnosed Date Bakery Associate 09/28/2022 Problem Noted Date Diagnosed Date Bakery Associate 09/28/2022 Problem Noted Date Diagnosed Date Bakery Associate 09/28/2022 Chief Complaint and Reason for Visit Chief Complaint general illness Chief Complaint general illness n/v Chief Complaint PREG Chief Complaint SEIZURE Chief Complaint SEIZURE/NST Reason for Visit Breakthrough seizure Seizure disorder Chief Complaint FOREIGN OBJECT Reason for Referral Specialty Diagnoses / Procedures Referred By Nacho kelley Referred To [facility] Diagnoses 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) Generalized idiopathic epilepsy and epileptic syndromes, intractable, with status epilepticus (HCC) Ruben Tellez MD [address] [place] [address] Referral ID Status Reason Start Date Expiration Date Visits Re quested Visits Authorized [id number] Closed 1 1 Specialty Diagnoses / Procedures Referred By Nacho kelley Referred To [facility] Diagnoses 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) Procedures EPIL EEG ROUTINE ELECTROENCEPHALOGRAM REC COMA/SLEEP ONLY Ruben Tellez MD [address] [place] [address] [address] Referral ID Status Reason Start Date Expiration Date Visits Requested Visits Authorized [id number] New Request Auto-Generat ed Referral 01/23/2024 01/22/2025 1 1 Specialty Diagnoses / Procedures Referred By Nacho kelley Referred To [facility] Diagnoses 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) Procedures EPIL AMBULATORY EEG EEG COMPLETE STD PHYS/QHP&GT;84 HR W/O VID Ruben Tellez MD [address] [place] [address] [facility] [place] [address] [place] [address] Referral ID Status Reason Start Date Expiration Date Visits Requested Visits Authorized [id number] New Request Auto-Generat ed Referral 01/23/2024 01/22/2025 1 1 Specialty Diagnoses / Procedures Referred By Contac t Referred To Contact Diagnoses Generalized idiopathic epilepsy and epileptic syndromes, intractable, with status epilepticus (HCC) Esme Valera PA-C [address] [place] [address] Referral ID Status Reason Start Date Expiration Date V isits Requested Visits Authorized [id number] Pending Review 1 1 Specialty Diagnoses / Procedures Referred By Contac t Referred To Contact Diagnoses Seizure (HCC) Ruben Tellez MD [address] [place] [address] Referral ID Status Reason Start Date Expiration Date Visits Re quested Visits Authorized [id number] Closed 1 1 Specialty Diagnoses / Procedures Referred By Contac t Referred To Contact Miguel Swanson MD [address] [facility] [place] [address] Referral ID Status Reason Start Date Expiration Date Visits Re quested Visits Authorized [id number] Closed 1 1 Specialty Diagnoses / Procedures Referred By Contac t Referred To Contact Diagnoses Seizure disorder during in third trimester (HCC) Procedures CONSULT TO MATERNAL MEDI OFFICE/OUTPATIENT NEW HIGH MDM 60-74 MINUTES Arianne Briggs MD [address] [address] Referral ID Status Reason Start Date Expiration Date Visits Requested Visits Authorized [id number] Authorized PCP Requested Referral Auto-Generate d Referral 08/27/2022 08/27/2023 1 1 Specialty Diagnoses / Procedures Referred By Contac t Referred To Contact Diagnoses S/P placement of VNS (vagus nerve stimulation) device Generalized epilepsy, intractable (HCC) Sobeida Kyle APRN.MEDICAL OFFICE COORDINATOR [address] [place] [address] Referral ID Status Reason Start Date Expiration Date Visits Re quested Visits Authorized [id number] Closed 1 1 Specialty Diagnoses / Procedures Referred By Contac t Referred To Contact Diagnoses 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, antepartum, single or unspecified fetus Procedures CONSULT TO MEDICAL GENETICS - MEDICAL GENETICS COUNSELING EACH 30 MINUTES Reji Lawson MD [address] [place] [address] [facility] [address] [address] Referral ID Status Reason Start Date Expiration Date Visits Requested Visits Authorized [id number] Authorized PCP Requested Referral Auto-Generate d Referral 04/23/2023 1 1 Specialty Diagnoses / Procedures Referred By Contac t Referred To Contact Diagnoses Family history of carrier of genetic disease Procedures CONSULT TO MATERNAL MEDI OFFICE/OUTPATIENT [facility] MDM 60-74 MINUTES Alivia Argueta MD [facility] [address] Referral ID Status Reason Start Date Expiration Date Visits Requested Visits Authorized [id number] Authorized PCP Requested Referral Auto-Generate d Referral 04/05/2022 04/05/2023 1 1 Specialty Diagnoses / Procedures Referred By Contac t Referred To Contact Diagnoses Generalized epilepsy (HCC) Convulsions, unspecified convulsion type (HCC) Patrick Arreola, KANWAL.MEDICAL OFFICE COORDINATOR [address] [place] [address] Referral ID Status Reason Start Date Expiration Date Visits Re quested Visits Authorized [id number] Closed 1 1 Specialty Diagnoses / Procedures Referred By Contac t Referred To Contact Diagnoses Generalized epilepsy, intractable (HCC) Supervision of high risk , antepartum Procedures CONSULT TO MATERNAL MEDI OFFICE/OUTPATIENT NEW HIGH MDM 60-74 MINUTES Alivia Argueta MD [address] [place] [address] Referral ID Status Reason Start Date Expiration Date Visits Requested Visits Authorized [id number] Authorized PCP Requested Referral Auto-Generate d Referral 2 03/12/2023 1 1 Medications Administered Section Active Administered Medications - up to 3 most recent administrations Medication Order MAR Action Action Date Dose Rate Site medroxyPROGESTERone 150 mg injection (DEPO-PROVERA) 150 mg, INTRAMUSCULAR, EVERY 12 WEEKS, 4 doses, First dose on Fri12/02/22 at 1630, Last dose on Fri08/11/23 at 1630, Hazardous Potential Reproductive Risk Drug: Use appropriate PPE. Given 12/04/2022 9:52 AM EDT 150 mg Buttocks, Left Active Administered Medications - up to 3 most recent administrations Medication Order MAR Action Action Date Dose Rate Site medroxyPROGESTERone 150 mg injection (DEPO-PROVERA) 150 mg, INTRAMUSCULAR, EVERY 12 WEEKS, 4 doses, First dose on Fri12/02/22 at 1630, Last dose on Fri08/11/23 at 1630, Hazardous Potential Reproductive Risk Drug: Use appropriate PPE. Given 05/02/2023 12:10 PM EST 150 mg Buttocks, Right Given 12/04/2022 9:52 AM EDT 150 mg Bu ttocks, Left Additional Source Comments INFORMATION SOURCE (unrecogn ized section and content) DATE CREATED AUTHOR 06/30/2021 [facility] DATE CREATED AUTHOR AUTHOR'S ORGANIZ ATION 09/23/2022 [facility]) DATE CREATED AUTHOR AUTHOR'S ORGANIZ ATION 01/25/2024 [facility] DATE CREATED AUTHOR AUTHOR'S ORGANIZ ATION 03/15/2024 [facility] DATE CREATED AUTHOR AUTHOR'S ORGANIZ ATION 05/24/2024 [facility] DATE CREATED AUTHOR AUTHOR'S ORGANIZ ATION 11/21/2024 [facility] Source Comments (unrecognize d section and content) In the event this informatio n is protected by the Federal Confidentiality of Alcohol and Drug Abuse Patient Records regulations: The Federal rules restrict any use of the information to criminally investigate or prosecute any alcohol or drug abuse patient.[facility] the event this information is protected by the Federal Confidentiality of Alcohol and Drug Abuse Patient Records regulations: The Federal rules restrict any use of the information to criminally investigate or prosecute any alcohol or drug abuse patient.[facility] CenterIn the event this information is protected by the Federal Confidentiality of Alcohol and Drug Abuse Patient Records regulations: The Federal rules restrict any use of the information to criminally investigate or prosecute any alcohol or drug abuse patient.[facility] CenterIn the event this information is protected by the Federal Confidentiality of Alcohol and Drug Abuse Patient Records regulations: The Federal rules restrict any use of the information to criminally investigate or prosecute any alcohol or drug abuse patient.[facility] CenterIn the event this information is protected by the Federal Confidentiality of Alcohol and Drug Abuse Patient Records regulations: The Federal rules restrict any use of the information to criminally investigate or prosecute any alcohol or drug abuse patient.[facility] CenterIn the event this information is protected by the Federal Confidentiality of Alcohol and Drug Abuse Patient Records regulations: The Federal rules restrict any use of the information to criminally investigate or prosecute any alcohol or drug abuse patient.[facility] CenterIn the event this information is protected by the Federal Confidentiality of Alcohol and Drug Abuse Patient Records regulations: The Federal rules restrict any use of the information to criminally investigate or prosecute any alcohol or drug abuse patient.[facility] CenterIn the event this information is protected by the Federal Confidentiality of Alcohol and Drug Abuse Patient Records regulations: The Federal rules restrict any use of the information to criminally investigate or prosecute any alcohol or drug abuse patient.[facility] CenterIn the event this information is protected by the Federal Confidentiality of Alcohol and Drug Abuse Patient Records regulations: The Federal rules restrict any use of the information to criminally investigate or prosecute any alcohol or drug abuse patient.[facility] CenterIn the event this information is protected by the Federal Confidentiality of Alcohol and Drug Abuse Patient Records regulations: The Federal rules restrict any use of the information to criminally investigate or prosecute any alcohol or drug abuse patient.[facility] CenterIn the event this information is protected by the Federal Confidentiality of Alcohol and Drug Abuse Patient Records regulations: The Federal rules restrict any use of the information to criminally investigate or prosecute any alcohol or drug abuse patient.[facility] CenterIn the event this information is protected by the Federal Confidentiality of Alcohol and Drug Abuse Patient Records regulations: The Federal rules restrict any use of the information to criminally investigate or prosecute any alcohol or drug abuse patient.[facility] CenterIn the event this information is protected by the Federal Confidentiality of Alcohol and Drug Abuse Patient Records regulations: The Federal rules restrict any use of the information to criminally investigate or prosecute any alcohol or drug abuse patient.[facility] CenterIn the event this information is protected by the Federal Confidentiality of Alcohol and Drug Abuse Patient Records regulations: The Federal rules restrict any use of the information to criminally investigate or prosecute any alcohol or drug abuse patient.[facility] CenterIn the event this information is protected by the Federal Confidentiality of Alcohol and Drug Abuse Patient Records regulations: The Federal rules restrict any use of the information to criminally investigate or prosecute any alcohol or drug abuse patient.[facility] CenterIn the event this information is protected by the Federal Confidentiality of Alcohol and Drug Abuse Patient Records regulations: The Federal rules restrict any use of the information to criminally investigate or prosecute any alcohol or drug abuse patient.[facility] CenterIn the event this information is protected by the Federal Confidentiality of Alcohol and Drug Abuse Patient Records regulations: The Federal rules restrict any use of the information to criminally investigate or prosecute any alcohol or drug abuse patient.[facility] CenterIn the event this information is protected by the Federal Confidentiality of Alcohol and Drug Abuse Patient Records regulations: The Federal rules restrict any use of the information to criminally investigate or prosecute any alcohol or drug abuse patient.[facility] CenterIn the event this information is protected by the Federal Confidentiality of Alcohol and Drug Abuse Patient Records regulations: The Federal rules restrict any use of the information to criminally investigate or prosecute any alcohol or drug abuse patient.[facility] CenterIn the event this information is protected by the Federal Confidentiality of Alcohol and Drug Abuse Patient Records regulations: The Federal rules restrict any use of the information to criminally investigate or prosecute any alcohol or drug abuse patient.[facility] CenterIn the event this information is protected by the Federal Confidentiality of Alcohol and Drug Abuse Patient Records regulations: The Federal rules restrict any use of the information to criminally investigate or prosecute any alcohol or drug abuse patient.[facility] CenterIn the event this information is protected by the Federal Confidentiality of Alcohol and Drug Abuse Patient Records regulations: The Federal rules restrict any use of the information to criminally investigate or prosecute any alcohol or drug abuse patient.[facility] CenterIn the event this information is protected by the Federal Confidentiality of Alcohol and Drug Abuse Patient Records regulations: The Federal rules restrict any use of the information to criminally investigate or prosecute any alcohol or drug abuse patient.[facility] CenterIn the event this information is protected by the Federal Confidentiality of Alcohol and Drug Abuse Patient Records regulations: The Federal rules restrict any use of the information to criminally investigate or prosecute any alcohol or drug abuse patient.[facility] CenterIn the event this information is protected by the Federal Confidentiality of Alcohol and Drug Abuse Patient Records regulations: The Federal rules restrict any use of the information to criminally investigate or prosecute any alcohol or drug abuse patient.[facility] CenterIn the event this information is protected by the Federal Confidentiality of Alcohol and Drug Abuse Patient Records regulations: The Federal rules restrict any use of the information to criminally investigate or prosecute any alcohol or drug abuse patient.[facility] CenterIn the event this information is protected by the Federal Confidentiality of Alcohol and Drug Abuse Patient Records regulations: The Federal rules restrict any use of the information to criminally investigate or prosecute any alcohol or drug abuse patient.[facility] CenterIn the event this information is protected by the Federal Confidentiality of Alcohol and Drug Abuse Patient Records regulations: The Federal rules restrict any use of the information to criminally investigate or prosecute any alcohol or drug abuse patient.[facility] CenterIn the event this information is protected by the Federal Confidentiality of Alcohol and Drug Abuse Patient Records regulations: The Federal rules restrict any use of the information to criminally investigate or prosecute any alcohol or drug abuse patient.[facility] CenterIn the event this information is protected by the Federal Confidentiality of Alcohol and Drug Abuse Patient Records regulations: The Federal rules restrict any use of the information to criminally investigate or prosecute any alcohol or drug abuse patient.[facility] CenterIn the event this information is protected by the Federal Confidentiality of Alcohol and Drug Abuse Patient Records regulations: The Federal rules restrict any use of the information to criminally investigate or prosecute any alcohol or drug abuse patient.[facility] CenterIn the event this information is protected by the Federal Confidentiality of Alcohol and Drug Abuse Patient Records regulations: The Federal rules restrict any use of the information to criminally investigate or prosecute any alcohol or drug abuse patient.[facility] CenterIn the event this information is protected by the Federal Confidentiality of Alcohol and Drug Abuse Patient Records regulations: The Federal rules restrict any use of the information to criminally investigate or prosecute any alcohol or drug abuse patient.[facility] CenterIn the event this information is protected by the Federal Confidentiality of Alcohol and Drug Abuse Patient Records regulations: The Federal rules restrict any use of the information to criminally investigate or prosecute any alcohol or drug abuse patient.[facility] CenterIn the event this information is protected by the Federal Confidentiality of Alcohol and Drug Abuse Patient Records regulations: The Federal rules restrict any use of the information to criminally investigate or prosecute any alcohol or drug abuse patient.[facility] CenterIn the event this information is protected by the Federal Confidentiality of Alcohol and Drug Abuse Patient Records regulations: The Federal rules restrict any use of the information to criminally investigate or prosecute any alcohol or drug abuse patient.[facility] CenterIn the event this information is protected by the Federal Confidentiality of Alcohol and Drug Abuse Patient Records regulations: The Federal rules restrict any use of the information to criminally investigate or prosecute any alcohol or drug abuse patient.[facility] CenterIn the event this information is protected by the Federal Confidentiality of Alcohol and Drug Abuse Patient Records regulations: The Federal rules restrict any use of the information to criminally investigate or prosecute any alcohol or drug abuse patient.[facility] CenterIn the event this information is protected by the Federal Confidentiality of Alcohol and Drug Abuse Patient Records regulations: The Federal rules restrict any use of the information to criminally investigate or prosecute any alcohol or drug abuse patient.[facility] CenterIn the event this information is protected by the Federal Confidentiality of Alcohol and Drug Abuse Patient Records regulations: The Federal rules restrict any use of the information to criminally investigate or prosecute any alcohol or drug abuse patient.[facility] CenterIn the event this information is protected by the Federal Confidentiality of Alcohol and Drug Abuse Patient Records regulations: The Federal rules restrict any use of the information to criminally investigate or prosecute any alcohol or drug abuse patient.[facility] CenterIn the event this information is protected by the Federal Confidentiality of Alcohol and Drug Abuse Patient Records regulations: The Federal rules restrict any use of the information to criminally investigate or prosecute any alcohol or drug abuse patient.[facility] CenterIn the event this information is protected by the Federal Confidentiality of Alcohol and Drug Abuse Patient Records regulations: The Federal rules restrict any use of the information to criminally investigate or prosecute any alcohol or drug abuse patient.[facility] CenterIn the event this information is protected by the Federal Confidentiality of Alcohol and Drug Abuse Patient Records regulations: The Federal rules restrict any use of the information to criminally investigate or prosecute any alcohol or drug abuse patient.[facility] CenterIn the event this information is protected by the Federal Confidentiality of Alcohol and Drug Abuse Patient Records regulations: The Federal rules restrict any use of the information to criminally investigate or prosecute any alcohol or drug abuse patient.[facility] CenterIn the event this information is protected by the Federal Confidentiality of Alcohol and Drug Abuse Patient Records regulations: The Federal rules restrict any use of the information to criminally investigate or prosecute any alcohol or drug abuse patient.[facility] CenterIn the event this information is protected by the Federal Confidentiality of Alcohol and Drug Abuse Patient Records regulations: The Federal rules restrict any use of the information to criminally investigate or prosecute any alcohol or drug abuse patient.[facility] CenterIn the event this information is protected by the Federal Confidentiality of Alcohol and Drug Abuse Patient Records regulations: The Federal rules restrict any use of the information to criminally investigate or prosecute any alcohol or drug abuse patient.[facility] CenterIn the event this information is protected by the Federal Confidentiality of Alcohol and Drug Abuse Patient Records regulations: The Federal rules restrict any use of the information to criminally investigate or prosecute any alcohol or drug abuse patient.[facility] CenterIn the event this information is protected by the Federal Confidentiality of Alcohol and Drug Abuse Patient Records regulations: The Federal rules restrict any use of the information to criminally investigate or prosecute any alcohol or drug abuse patient.[facility] CenterIn the event this information is protected by the Federal Confidentiality of Alcohol and Drug Abuse Patient Records regulations: The Federal rules restrict any use of the information to criminally investigate or prosecute any alcohol or drug abuse patient.[facility] CenterIn the event this information is protected by the Federal Confidentiality of Alcohol and Drug Abuse Patient Records regulations: The Federal rules restrict any use of the information to criminally investigate or prosecute any alcohol or drug abuse patient.[facility] CenterIn the event this information is protected by the Federal Confidentiality of Alcohol and Drug Abuse Patient Records regulations: The Federal rules restrict any use of the information to criminally investigate or prosecute any alcohol or drug abuse patient.[facility] CenterIn the event this information is protected by the Federal Confidentiality of Alcohol and Drug Abuse Patient Records regulations: The Federal rules restrict any use of the information to criminally investigate or prosecute any alcohol or drug abuse patient.[facility] CenterIn the event this information is protected by the Federal Confidentiality of Alcohol and Drug Abuse Patient Records regulations: The Federal rules restrict any use of the information to criminally investigate or prosecute any alcohol or drug abuse patient.[facility] CenterIn the event this information is protected by the Federal Confidentiality of Alcohol and Drug Abuse Patient Records regulations: The Federal rules restrict any use of the information to criminally investigate or prosecute any alcohol or drug abuse patient.[facility] CenterIn the event this information is protected by the Federal Confidentiality of Alcohol and Drug Abuse Patient Records regulations: The Federal rules restrict any use of the information to criminally investigate or prosecute any alcohol or drug abuse patient.[facility] CenterIn the event this information is protected by the Federal Confidentiality of Alcohol and Drug Abuse Patient Records regulations: The Federal rules restrict any use of the information to criminally investigate or prosecute any alcohol or drug abuse patient.[facility] CenterIn the event this information is protected by the Federal Confidentiality of Alcohol and Drug Abuse Patient Records regulations: The Federal rules restrict any use of the information to criminally investigate or prosecute any alcohol or drug abuse patient.[facility] CenterIn the event this information is protected by the Federal Confidentiality of Alcohol and Drug Abuse Patient Records regulations: The Federal rules restrict any use of the information to criminally investigate or prosecute any alcohol or drug abuse patient.[facility] CenterIn the event this information is protected by the Federal Confidentiality of Alcohol and Drug Abuse Patient Records regulations: The Federal rules restrict any use of the information to criminally investigate or prosecute any alcohol or drug abuse patient.[facility] CenterIn the event this information is protected by the Federal Confidentiality of Alcohol and Drug Abuse Patient Records regulations: The Federal rules restrict any use of the information to criminally investigate or prosecute any alcohol or drug abuse patient.[facility] CenterIn the event this information is protected by the Federal Confidentiality of Alcohol and Drug Abuse Patient Records regulations: The Federal rules restrict any use of the information to criminally investigate or prosecute any alcohol or drug abuse patient.[facility] CenterIn the event this information is protected by the Federal Confidentiality of Alcohol and Drug Abuse Patient Records regulations: The Federal rules restrict any use of the information to criminally investigate or prosecute any alcohol or drug abuse patient.[facility] CenterIn the event this information is protected by the Federal Confidentiality of Alcohol and Drug Abuse Patient Records regulations: The Federal rules restrict any use of the information to criminally investigate or prosecute any alcohol or drug abuse patient.[facility] CenterIn the event this information is protected by the Federal Confidentiality of Alcohol and Drug Abuse Patient Records regulations: The Federal rules restrict any use of the information to criminally investigate or prosecute any alcohol or drug abuse patient.[facility] CenterIn the event this information is protected by the Federal Confidentiality of Alcohol and Drug Abuse Patient Records regulations: The Federal rules restrict any use of the information to criminally investigate or prosecute any alcohol or drug abuse patient.[facility] CenterIn the event this information is protected by the Federal Confidentiality of Alcohol and Drug Abuse Patient Records regulations: The Federal rules restrict any use of the information to criminally investigate or prosecute any alcohol or drug abuse patient.[facility]In the event this information is protected by the Federal Confidentiality of Alcohol and Drug Abuse Patient Records regulations: The Federal rules restrict any use of the information to criminally investigate or prosecute any alcohol or drug abuse patient.[facility] CenterIn the event this information is protected by the Federal Confidentiality of Alcohol and Drug Abuse Patient Records regulations: The Federal rules restrict any use of the information to criminally investigate or prosecute any alcohol or drug abuse patient.[facility]In the event this information is protected by the Federal Confidentiality of Alcohol and Drug Abuse Patient Records regulations: The Federal rules restrict any use of the information to criminally investigate or prosecute any alcohol or drug abuse patient.[facility]In the event this information is protected by the Federal Confidentiality of Alcohol and Drug Abuse Patient Records regulations: The Federal rules restrict any use of the information to criminally investigate or prosecute any alcohol or drug abuse patient.[facility] CenterIn the event this information is protected by the Federal Confidentiality of Alcohol and Drug Abuse Patient Records regulations: The Federal rules restrict any use of the information to criminally investigate or prosecute any alcohol or drug abuse patient.[facility] CenterIn the event this information is protected by the Federal Confidentiality of Alcohol and Drug Abuse Patient Records regulations: The Federal rules restrict any use of the information to criminally investigate or prosecute any alcohol or drug abuse patient.[facility] CenterIn the event this information is protected by the Federal Confidentiality of Alcohol and Drug Abuse Patient Records regulations: The Federal rules restrict any use of the information to criminally investigate or prosecute any alcohol or drug abuse patient.[facility] CenterIn the event this information is protected by the Federal Confidentiality of Alcohol and Drug Abuse Patient Records regulations: The Federal rules restrict any use of the information to criminally investigate or prosecute any alcohol or drug abuse patient.[facility] CenterIn the event this information is protected by the Federal Confidentiality of Alcohol and Drug Abuse Patient Records regulations: The Federal rules restrict any use of the information to criminally investigate or prosecute any alcohol or drug abuse patient.[facility] CenterIn the event this information is protected by the Federal Confidentiality of Alcohol and Drug Abuse Patient Records regulations: The Federal rules restrict any use of the information to criminally investigate or prosecute any alcohol or drug abuse patient.[facility]In the event this information is protected by the Federal Confidentiality of Alcohol and Drug Abuse Patient Records regulations: The Federal rules restrict any use of the information to criminally investigate or prosecute any alcohol or drug abuse patient.[facility]In the event this information is protected by the Federal Confidentiality of Alcohol and Drug Abuse Patient Records regulations: The Federal rules restrict any use of the information to criminally investigate or prosecute any alcohol or drug abuse patient.[facility]In the event this information is protected by the Federal Confidentiality of Alcohol and Drug Abuse Patient Records regulations: The Federal rules restrict any use of the information to criminally investigate or prosecute any alcohol or drug abuse patient.[facility] CenterIn the event this information is protected by the Federal Confidentiality of Alcohol and Drug Abuse Patient Records regulations: The Federal rules restrict any use of the information to criminally investigate or prosecute any alcohol or drug abuse patient.[facility] CenterIn the event this information is protected by the Federal Confidentiality of Alcohol and Drug Abuse Patient Records regulations: The Federal rules restrict any use of the information to criminally investigate or prosecute any alcohol or drug abuse patient.[facility] CenterIn the event this information is protected by the Federal Confidentiality of Alcohol and Drug Abuse Patient Records regulations: The Federal rules restrict any use of the information to criminally investigate or prosecute any alcohol or drug abuse patient.[facility] CenterIn the event this information is protected by the Federal Confidentiality of Alcohol and Drug Abuse Patient Records regulations: The Federal rules restrict any use of the information to criminally investigate or prosecute any alcohol or drug abuse patient.[facility] CenterIn the event this information is protected by the Federal Confidentiality of Alcohol and Drug Abuse Patient Records regulations: The Federal rules restrict any use of the information to criminally investigate or prosecute any alcohol or drug abuse patient.[facility] CenterIn the event this information is protected by the Federal Confidentiality of Alcohol and Drug Abuse Patient Records regulations: The Federal rules restrict any use of the information to criminally investigate or prosecute any alcohol or drug abuse patient.[facility] CenterIn the event this information is protected by the Federal Confidentiality of Alcohol and Drug Abuse Patient Records regulations: The Federal rules restrict any use of the information to criminally investigate or prosecute any alcohol or drug abuse patient.[facility] CenterIn the event this information is protected by the Federal Confidentiality of Alcohol and Drug Abuse Patient Records regulations: The Federal rules restrict any use of the information to criminally investigate or prosecute any alcohol or drug abuse patient.[facility] CenterIn the event this information is protected by the Federal Confidentiality of Alcohol and Drug Abuse Patient Records regulations: The Federal rules restrict any use of the information to criminally investigate or prosecute any alcohol or drug abuse patient.[facility] CenterIn the event this information is protected by the Federal Confidentiality of Alcohol and Drug Abuse Patient Records regulations: The Federal rules restrict any use of the information to criminally investigate or prosecute any alcohol or drug abuse patient.[facility] CenterIn the event this information is protected by the Federal Confidentiality of Alcohol and Drug Abuse Patient Records regulations: The Federal rules restrict any use of the information to criminally investigate or prosecute any alcohol or drug abuse patient.[facility] CenterIn the event this information is protected by the Federal Confidentiality of Alcohol and Drug Abuse Patient Records regulations: The Federal rules restrict any use of the information to criminally investigate or prosecute any alcohol or drug abuse patient.[facility] CenterIn the event this information is protected by the Federal Confidentiality of Alcohol and Drug Abuse Patient Records regulations: The Federal rules restrict any use of the information to criminally investigate or prosecute any alcohol or drug abuse patient.[facility] CenterIn the event this information is protected by the Federal Confidentiality of Alcohol and Drug Abuse Patient Records regulations: The Federal rules restrict any use of the information to criminally investigate or prosecute any alcohol or drug abuse patient.[facility] CenterIn the event this information is protected by the Federal Confidentiality of Alcohol and Drug Abuse Patient Records regulations: The Federal rules restrict any use of the information to criminally investigate or prosecute any alcohol or drug abuse patient.[facility] CenterIn the event this information is protected by the Federal Confidentiality of Alcohol and Drug Abuse Patient Records regulations: The Federal rules restrict any use of the information to criminally investigate or prosecute any alcohol or drug abuse patient.[facility]In the event this information is protected by the Federal Confidentiality of Alcohol and Drug Abuse Patient Records regulations: The Federal rules restrict any use of the information to criminally investigate or prosecute any alcohol or drug abuse patient.[facility]In the event this information is protected by the Federal Confidentiality of Alcohol and Drug Abuse Patient Records regulations: The Federal rules restrict any use of the information to criminally investigate or prosecute any alcohol or drug abuse patient.[facility]In the event this information is protected by the Federal Confidentiality of Alcohol and Drug Abuse Patient Records regulations: The Federal rules restrict any use of the information to criminally investigate or prosecute any alcohol or drug abuse patient.[facility]In the event this information is protected by the Federal Confidentiality of Alcohol and Drug Abuse Patient Records regulations: The Federal rules restrict any use of the information to criminally investigate or prosecute any alcohol or drug abuse patient.[facility]In the event this information is protected by the Federal Confidentiality of Alcohol and Drug Abuse Patient Records regulations: The Federal rules restrict any use of the information to criminally investigate or prosecute any alcohol or drug abuse patient.[facility]In the event this information is protected by the Federal Confidentiality of Alcohol and Drug Abuse Patient Records regulations: The Federal rules restrict any use of the information to criminally investigate or prosecute any alcohol or drug abuse patient.[facility]In the event this information is protected by the Federal Confidentiality of Alcohol and Drug Abuse Patient Records regulations: The Federal rules restrict any use of the information to criminally investigate or prosecute any alcohol or drug abuse patient.[facility]In the event this information is protected by the Federal Confidentiality of Alcohol and Drug Abuse Patient Records regulations: The Federal rules restrict any use of the information to criminally investigate or prosecute any alcohol or drug abuse patient.[facility]In the event this information is protected by the Federal Confidentiality of Alcohol and Drug Abuse Patient Records regulations: The Federal rules restrict any use of the information to criminally investigate or prosecute any alcohol or drug abuse patient.[facility]In the event this information is protected by the Federal Confidentiality of Alcohol and Drug Abuse Patient Records regulations: The Federal rules restrict any use of the information to criminally investigate or prosecute any alcohol or drug abuse patient.[facility]In the event this information is protected by the Federal Confidentiality of Alcohol and Drug Abuse Patient Records regulations: The Federal rules restrict any use of the information to criminally investigate or prosecute any alcohol or drug abuse patient.[facility]In the event this information is protected by the Federal Confidentiality of Alcohol and Drug Abuse Patient Records regulations: The Federal rules restrict any use of the information to criminally investigate or prosecute any alcohol or drug abuse patient.[facility]In the event this information is protected by the Federal Confidentiality of Alcohol and Drug Abuse Patient Records regulations: The Federal rules restrict any use of the information to criminally investigate or prosecute any alcohol or drug abuse patient.[facility]In the event this information is protected by the Federal Confidentiality of Alcohol and Drug Abuse Patient Records regulations: The Federal rules restrict any use of the information to criminally investigate or prosecute any alcohol or drug abuse patient.[facility]In the event this information is protected by the Federal Confidentiality of Alcohol and Drug Abuse Patient Records regulations: The Federal rules restrict any use of the information to criminally investigate or prosecute any alcohol or drug abuse patient.[facility]In the event this information is protected by the Federal Confidentiality of Alcohol and Drug Abuse Patient Records regulations: The Federal rules restrict any use of the information to criminally investigate or prosecute any alcohol or drug abuse patient.[facility]In the event this information is protected by the Federal Confidentiality of Alcohol and Drug Abuse Patient Records regulations: The Federal rules restrict any use of the information to criminally investigate or prosecute any alcohol or drug abuse patient.[facility]In the event this information is protected by the Federal Confidentiality of Alcohol and Drug Abuse Patient Records regulations: The Federal rules restrict any use of the information to criminally investigate or prosecute any alcohol or drug abuse patient.[facility]In the event this information is protected by the Federal Confidentiality of Alcohol and Drug Abuse Patient Records regulations: The Federal rules restrict any use of the information to criminally investigate or prosecute any alcohol or drug abuse patient.[facility]In the event this information is protected by the Federal Confidentiality of Alcohol and Drug Abuse Patient Records regulations: The Federal rules restrict any use of the information to criminally investigate or prosecute any alcohol or drug abuse patient.[facility]In the event this information is protected by the Federal Confidentiality of Alcohol and Drug Abuse Patient Records regulations: The Federal rules restrict any use of the information to criminally investigate or prosecute any alcohol or drug abuse patient.[facility]In the event this information is protected by the Federal Confidentiality of Alcohol and Drug Abuse Patient Records regulations: The Federal rules restrict any use of the information to criminally investigate or prosecute any alcohol or drug abuse patient.[facility]In the event this information is protected by the Federal Confidentiality of Alcohol and Drug Abuse Patient Records regulations: The Federal rules restrict any use of the information to criminally investigate or prosecute any alcohol or drug abuse patient.[facility]In the event this information is protected by the Federal Confidentiality of Alcohol and Drug Abuse Patient Records regulations: The Federal rules restrict any use of the information to criminally investigate or prosecute any alcohol or drug abuse patient.[facility]In the event this information is protected by the Federal Confidentiality of Alcohol and Drug Abuse Patient Records regulations: The Federal rules restrict any use of the information to criminally investigate or prosecute any alcohol or drug abuse patient.[facility]In the event this information is protected by the Federal Confidentiality of Alcohol and Drug Abuse Patient Records regulations: The Federal rules restrict any use of the information to criminally investigate or prosecute any alcohol or drug abuse patient.[facility]In the event this information is protected by the Federal Confidentiality of Alcohol and Drug Abuse Patient Records regulations: The Federal rules restrict any use of the information to criminally investigate or prosecute any alcohol or drug abuse patient.[facility]In the event this information is protected by the Federal Confidentiality of Alcohol and Drug Abuse Patient Records regulations: The Federal rules restrict any use of the information to criminally investigate or prosecute any alcohol or drug abuse patient.[facility]In the event this information is protected by the Federal Confidentiality of Alcohol and Drug Abuse Patient Records regulations: The Federal rules restrict any use of the information to criminally investigate or prosecute any alcohol or drug abuse patient.[facility]In the event this information is protected by the Federal Confidentiality of Alcohol and Drug Abuse Patient Records regulations: The Federal rules restrict any use of the information to criminally investigate or prosecute any alcohol or drug abuse patient.[facility]In the event this information is protected by the Federal Confidentiality of Alcohol and Drug Abuse Patient Records regulations: The Federal rules restrict any use of the information to criminally investigate or prosecute any alcohol or drug abuse patient.[facility]In the event this information is protected by the Federal Confidentiality of Alcohol and Drug Abuse Patient Records regulations: The Federal rules restrict any use of the information to criminally investigate or prosecute any alcohol or drug abuse patient.[facility]In the event this information is protected by the Federal Confidentiality of Alcohol and Drug Abuse Patient Records regulations: The Federal rules restrict any use of the information to criminally investigate or prosecute any alcohol or drug abuse patient.[facility]In the event this information is protected by the Federal Confidentiality of Alcohol and Drug Abuse Patient Records regulations: The Federal rules restrict any use of the information to criminally investigate or prosecute any alcohol or drug abuse patient.[facility]In the event this information is protected by the Federal Confidentiality of Alcohol and Drug Abuse Patient Records regulations: The Federal rules restrict any use of the information to criminally investigate or prosecute any alcohol or drug abuse patient.[facility]In the event this information is protected by the Federal Confidentiality of Alcohol and Drug Abuse Patient Records regulations: The Federal rules restrict any use of the information to criminally investigate or prosecute any alcohol or drug abuse patient.[facility]In the event this information is protected by the Federal Confidentiality of Alcohol and Drug Abuse Patient Records regulations: The Federal rules restrict any use of the information to criminally investigate or prosecute any alcohol or drug abuse patient.[facility]In the event this information is protected by the Federal Confidentiality of Alcohol and Drug Abuse Patient Records regulations: The Federal rules restrict any use of the information to criminally investigate or prosecute any alcohol or drug abuse patient.[facility]In the event this information is protected by the Federal Confidentiality of Alcohol and Drug Abuse Patient Records regulations: The Federal rules restrict any use of the information to criminally investigate or prosecute any alcohol or drug abuse patient.[facility]In the event this information is protected by the Federal Confidentiality of Alcohol and Drug Abuse Patient Records regulations: The Federal rules restrict any use of the information to criminally investigate or prosecute any alcohol or drug abuse patient.[facility]In the event this information is protected by the Federal Confidentiality of Alcohol and Drug Abuse Patient Records regulations: The Federal rules restrict any use of the information to criminally investigate or prosecute any alcohol or drug abuse patient.[facility]In the event this information is protected by the Federal Confidentiality of Alcohol and Drug Abuse Patient Records regulations: The Federal rules restrict any use of the information to criminally investigate or prosecute any alcohol or drug abuse patient.[facility]In the event this information is protected by the Federal Confidentiality of Alcohol and Drug Abuse Patient Records regulations: The Federal rules restrict any use of the information to criminally investigate or prosecute any alcohol or drug abuse patient.[facility]In the event this information is protected by the Federal Confidentiality of Alcohol and Drug Abuse Patient Records regulations: The Federal rules restrict any use of the information to criminally investigate or prosecute any alcohol or drug abuse patient.[facility]In the event this information is protected by the Federal Confidentiality of Alcohol and Drug Abuse Patient Records regulations: The Federal rules restrict any use of the information to criminally investigate or prosecute any alcohol or drug abuse patient.[facility]In the event this information is protected by the Federal Confidentiality of Alcohol and Drug Abuse Patient Records regulations: The Federal rules restrict any use of the information to criminally investigate or prosecute any alcohol or drug abuse patient.[facility]In the event this information is protected by the Federal Confidentiality of Alcohol and Drug Abuse Patient Records regulations: The Federal rules restrict any use of the information to criminally investigate or prosecute any alcohol or drug abuse patient.[facility]In the event this information is protected by the Federal Confidentiality of Alcohol and Drug Abuse Patient Records regulations: The Federal rules restrict any use of the information to criminally investigate or prosecute any alcohol or drug abuse patient.[facility]In the event this information is protected by the Federal Confidentiality of Alcohol and Drug Abuse Patient Records regulations: The Federal rules restrict any use of the information to criminally investigate or prosecute any alcohol or drug abuse patient.[facility]In the event this information is protected by the Federal Confidentiality of Alcohol and Drug Abuse Patient Records regulations: The Federal rules restrict any use of the information to criminally investigate or prosecute any alcohol or drug abuse patient.[facility]In the event this information is protected by the Federal Confidentiality of Alcohol and Drug Abuse Patient Records regulations: The Federal rules restrict any use of the information to criminally investigate or prosecute any alcohol or drug abuse patient.[facility] CenterIn the event this information is protected by the Federal Confidentiality of Alcohol and Drug Abuse Patient Records regulations: The Federal rules restrict any use of the information to criminally investigate or prosecute any alcohol or drug abuse patient.[facility] CenterIn the event this information is protected by the Federal Confidentiality of Alcohol and Drug Abuse Patient Records regulations: The Federal rules restrict any use of the information to criminally investigate or prosecute any alcohol or drug abuse patient.[facility] CenterIn the event this information is protected by the Federal Confidentiality of Alcohol and Drug Abuse Patient Records regulations: The Federal rules restrict any use of the information to criminally investigate or prosecute any alcohol or drug abuse patient.[facility] CenterIn the event this information is protected by the Federal Confidentiality of Alcohol and Drug Abuse Patient Records regulations: The Federal rules restrict any use of the information to criminally investigate or prosecute any alcohol or drug abuse patient.[facility] CenterIn the event this information is protected by the Federal Confidentiality of Alcohol and Drug Abuse Patient Records regulations: The Federal rules restrict any use of the information to criminally investigate or prosecute any alcohol or drug abuse patient.[facility] CenterIn the event this information is protected by the Federal Confidentiality of Alcohol and Drug Abuse Patient Records regulations: The Federal rules restrict any use of the information to criminally investigate or prosecute any alcohol or drug abuse patient.[facility] CenterIn the event this information is protected by the Federal Confidentiality of Alcohol and Drug Abuse Patient Records regulations: The Federal rules restrict any use of the information to criminally investigate or prosecute any alcohol or drug abuse patient.[facility] CenterIn the event this information is protected by the Federal Confidentiality of Alcohol and Drug Abuse Patient Records regulations: The Federal rules restrict any use of the information to criminally investigate or prosecute any alcohol or drug abuse patient.[facility] CenterIn the event this information is protected by the Federal Confidentiality of Alcohol and Drug Abuse Patient Records regulations: The Federal rules restrict any use of the information to criminally investigate or prosecute any alcohol or drug abuse patient.[facility] CenterIn the event this information is protected by the Federal Confidentiality of Alcohol and Drug Abuse Patient Records regulations: The Federal rules restrict any use of the information to criminally investigate or prosecute any alcohol or drug abuse patient.[facility] Reason for Visit (unrecogniz ed section and content) Reason Comments US Specialty Diagnoses / Procedures Referred By Contac t Referred To Contact [facility] Diagnoses Seizure disorder during , antepartum (HCC) Procedures BIOPHYSICAL PROFILE [facility] BIOPHYSICAL PROFILE [place] [address] [address] [address] [address] Referral ID Status Reason Start Date Expiration Date V isits Requested Visits Authorized [id number] Closed Auto-Generate d Referral 09/03/2022 09/03/2023 10 1 Specialty Diagnoses / Procedures Referred By Contac t Referred To Contact Diagnoses Seizure (HCC) Procedures na Ca [address] [place] [address] Referral ID Status Reason Start Date Expiration Date Visits Re quested Visits Authorized [id number] 1 1 Reason Comments Care Specialty Diagnoses / Procedures Referred By Contac t Referred To Contact Diagnoses 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, antepartum, single or unspecified fetus Procedures CONSULT TO MEDICAL GENETICS - MEDICAL GENETICS COUNSELING EACH 30 MINUTES Reji Lawson MD [address] [place] [address] [address] Referral ID Status Reason Start Date Expiration Date V isits Requested Visits Authorized [id number] Closed PCP Requested Referral Auto-Generated Referral 04/23/2022 04/23/2023 1 1 Reason Comments Sore Throat ST, stuffy nose and ALVARADO x 1 day Reason Comments Refill Request Reason Comments Results Reason Comments Patient Question Reason Onset Date Comments Refill Request 09/19/2021 Reason Onset Date Comments Seizures 2021 Reason Comments Patient Update Reason Comments Medication Problem ASMs Reason Onset Date Comments Refill Request 12/19/2021 Reason Onset Date Comments Refill Request 12/31/2021 Reason Comments Orders Reason Comments wants a pregngncy test Had 2 positives a t home-cannot remember when her last period was Reason Comments Follow Up Epilepsy Reason Onset Date Comments Refill Request 02/15/2022 Reason Comments Initial OB Visit 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 Reason Onset Date Comments Med Change Request Refill Request 03/04/2022 Reason Comments consult order Reason Onset Date Comments Care 03/19/2022 Reason Comments OB- Nausea Reason Onset Date Comments Care 03/26/2022 Reason Comments US Consult Specialty Diagnoses / Procedures Referred By Nacho t Referred To Contact [facility] Diagnoses , supervision, high-risk, first trimester Obesity in Procedures NUCHAL TRANSLUCENCY WHI US NUCHAL TRANSLUCENCY 1ST GESTATION Alivia Argueta MD [address] [place] [address] [facility] [address] [place] [address] Referral ID Status Reason Start Date Expiration Date V isits Requested Visits Authorized [id number] Closed Auto-Generate d Referral 02/28/2022 02/28/2023 1 1 Reason Onset Date Comments Opened In Error 03/29/2022 Reason Comments Med Change Request Reason Onset Date Comments Refill Request 04/01/2022 Reason Comments NIPT Reason Comments medication concern zonegram and keppra Reason Comments Question (OB Question) Reason Comments Future Appointment Reason Onset Date Comments Care 04/15/2022 Reason Comments US Care Specialty Diagnoses / Procedures Referred By Nacho kelley Referred To Contact Diagnoses Family history of carrier of genetic disease Procedures CONSULT TO MATERNAL MEDI OFFICE/OUTPATIENT NEW HIGH MDM 60-74 MINUTES Alivia Argueta MD [address] [place] [address] Referral ID Status Reason Start Date Expiration Date V isits Requested Visits Authorized [id number] Closed PCP Requested Referral Auto-Generated Referral 04/05/2022 04/05/2023 1 1 Specialty Diagnoses / Procedures Referred By Nacho t Referred To Contact [facility] Diagnoses Supervision of other high risk pregnancies, first trimester Generalized epilepsy, intractable (HCC) Encounter for screening of mother Procedures OBSTETRIC ULTRASOUND WHI US PREG UTERUS AFTER 1ST TRIMEST GESTATION Sheila Hernandez MD [address] [place] [address] [facility] [address] [place] [address] Referral ID Status Reason Start Date Expiration Date V isits Requested Visits Authorized [id number] Closed Auto-Generate d Referral 05/21/2022 06/01/2022 1 1 Reason Onset Date Comments Refill Request 05/28/2022 Reason Onset Date Comments Care 06/13/2022 Specialty Diagnoses / Procedures Referred By Contac t Referred To Contact [facility] Diagnoses 19 weeks gestation of High-risk in second trimester Procedures OBSTETRIC ULTRASOUND WHI US PREG UTERUS AFTER 1ST TRIMEST GESTATION Sheila Hernandez MD [address] [place] [address] [facility] [address] [place] [id number] Referral ID Status Reason Start Date Expiration Date V isits Requested Visits Authorized [id number] Closed Auto-Generate d Referral 05/21/2022 05/21/2023 1 1 Reason Onset Date Comments Care 07/03/2022 Reason Onset Date Comments Care 07/16/2022 Reason Onset Date Comments Refill Request 07/17/2022 Reason Comments Epilepsy Reason Onset Date Comments Care 07/24/2022 Reason Onset Date Comments Care 07/31/2022 Reason Comments Orders Specialty Diagnoses / Procedures Referred By Contac t Referred To Contact [facility] Diagnoses 28 weeks gestation of Procedures OBSTETRIC ULTRASOUND WHI US PREG UTERUS AFTER 1ST TRIMEST GESTATION Alivia Argueta MD [address] [place] [address] [facility] [address] [place] [address] Referral ID Status Reason Start Date Expiration Date V isits Requested Visits Authorized [id number] Closed Auto-Generate d Referral 07/24/2022 07/24/2023 1 1 Reason Comments Medication Problem Reason Comments Care Reason Onset Date Comments Refill Request 08/27/2022 Reason Comments Consult Reason Comments Results Lab results Reason Comments maternal care plan Care coordination Reason Comments Appointment Reason Comments Appointment Ultrasound Reason Comments breakthrough seizure Reason Comments Results Patient Update Reason Comments Follow Up Phone Call Post Discharge F/U - attempt made. No answer. Reason Comments Contraception Reason Onset Date Comments Nurse Visit Depo Provera Injection 12/04/2022 Patient b rought own med Reason Comments Follow Up VNS Visit Epilepsy Reason Onset Date Comments Refill Request 01/27/2023 Reason Onset Date Comments Refill Request 02/11/2023 Reason Comments Back Pain nausea, hot flashes x 10 days Reason Comments Research IRB [id number] Reason Onset Date Comments Depo Provera Injection 05/02/2023 Reason Comments Follow Up Epilepsy VNS Visit Reason Onset Date Comments Refill Request 10/29/2023 Reason Comments Medication Authorization perampanel (FYC OMPA) 4 mg tablet Reason Comments Well Woman Reason Onset Date Comments Depo Provera Injection 01/22/2024 Reason Onset Date Comments Refill Request 01/22/2024 Reason Comments Follow Up Epilepsy Reason Comments Orders Stratus Reason Comments Established Patient Follow Up VNS Visit Reason Comments Problem Visit Reason Comments Complex Contraception Reason Onset Date Comments Refill Request 05/01/2024 Reason Onset Date Comments Depo Provera Injection 05/13/2024 Reason Comments Medication Question Reason Onset Date Comments Refill Request 07/20/2024 Reason Onset Date Comments Refill Request 08/01/2024 Reason Onset Date Comments Refill Request 08/03/2024 Reason Onset Date Comments Refill Request 08/23/2024 Reason Onset Date Comments Refill Request 09/21/2024 Reason Comments Problem Visit Care Teams (unrecognized sec tion and content) Gravel Screener Relationship Specialty Start Date End Date Mark Schmidt PCP - General 03/26/02 Gravel Screener Relationship Specialty Start Date End Date Mark Schmidt PCP - General 03/26/02 Gravel Screener Relationship Specialty Start Date End Date Mark Schmidt PCP - General 03/26/02 Gravel Screener Relationship Specialty Start Date End Date Mark Schmidt PCP - General 03/26/02 Gravel Screener Relationship Specialty Start Date End Date Mark Schmidt PCP - General 03/26/02 Gravel Screener Relationship Specialty Start Date End Date Mark Schmidt PCP - General 03/26/02 Gravel Screener Relationship Specialty Start Date End Date Mark Schmidt PCP - General 03/26/02 Gravel Screener Relationship Specialty Start Date End Date Mark Schmidt PCP - General 03/26/02 Gravel Screener Relationship Specialty Start Date End Date Mark Schmidt PCP - General 03/26/02 Gravel Screener Relationship Specialty Start Date End Date Mark Schmidt PCP - General 03/26/02 Gravel Screener Relationship Specialty Start Date End Date Mark Schmidt PCP - General 03/26/02 Gravel Screener Relationship Specialty Start Date End Date Mark Schmidt PCP - General 03/26/02 Gravel Screener Relationship Specialty Start Date End Date Mark Schmidt PCP - General 03/26/02 Gravel Screener Relationship Specialty Start Date End Date Mark Schmidt PCP - General 03/26/02 Gravel Screener Relationship Specialty Start Date End Date Mark Schmidt PCP - General 03/26/02 Gravel Screener Relationship Specialty Start Date End Date Mark cShmidt PCP - General 03/26/02 Gravel Screener Relationship Specialty Start Date End Date Mark Schmidt PCP - General 03/26/02 Gravel Screener Relationship Specialty Start Date End Date Mark Schmidt PCP - General 03/26/02 Gravel Screener Relationship Specialty Start Date End Date Mark Schmidt PCP - General 03/26/02 Gravel Screener Relationship Specialty Start Date End Date Mark Schmidt PCP - General 03/26/02 Gravel Screener Relationship Specialty Start Date End Date Mrak Schmidt PCP - General 03/26/02 Gravel Screener Relationship Specialty Start Date End Date Mark Schmidt PCP - General 03/26/02 Gravel Screener Relationship Specialty Start Date End Date Mark Schmidt PCP - General 03/26/02 Gravel Screener Relationship Specialty Start Date End Date Mark Schmidt PCP - General 03/26/02 Gravel Screener Relationship Specialty Start Date End Date Mark Schmidt PCP - General 03/26/02 Gravel Screener Relationship Specialty Start Date End Date Mark Schmidt PCP - General [facility]/26/[facility] Gravel Screener Relationship Specialty Start Date End Date Mark Schmidt PCP - General 03/26/02 [facility] Gravel Screener Relationship Specialty Start Date End Date Mark Schmidt PCP - General 03/26/02 [facility] Gravel Screener Relationship Specialty Start Date End Date Mark Schmidt PCP - General 03/26/02 Karla Mcguire [facility] 07/23/22 Gravel Screener Relationship Specialty Start Date End Date Mark Schmidt PCP - General 03/26/02 Karla Mcguire, [facility] 07/23/22 Gravel Screener Relationship Specialty Start Date End Date Mark Scmhidt PCP - General 03/26/02 Karla Mcguire, [facility] 07/23/22 Gravel Screener Relationship Specialty Start Date End Date Mark Schmidt PCP - General 03/26/02 Karla Mcguire, [facility] 07/23/22 Team Status: Active Member Role Status Dates Dr. Renée Corbett MD Family Provider Active Dr. Renée Corbett MD Primary Care Provider Active Team Status: Inactive Member Role Status Dates Dr. Renée Corbett MD Primary Care Provider Active Dr. Daniel Reza , DO Emergency Provider Active Team Status: Inactive Member Role Status Dates Dr. Renée Corbett MD Primary Care Provider Active Dr. Daniel Reza , DO Emergency Provider Active Dr. Karthikeyan Mcdaniel MD Attending Provider Active Gravel Screener Relationship Specialty Start Date End Date Mark Schmidt PCP - General 03/26/02 Karla Mcguire, [facility] 07/23/22 Gravel Screener Relationship Specialty Start Date End Date Amirah Upton RN [facility] 08/28/22 Gravel Screener Relationship Specialty Start Date End Date Amirah Upton RN [facility] 08/28/22 Gravel Screener Relationship Specialty Start Date End Date Amirah Upton integration assistantRoving Hand 08/28/22 Gravel Screener Relationship Specialty Start Date End Date Amirah Upton integration assistantRoving Hand 08/28/22 Gravel Screener Relationship Specialty Start Date End Date Mark Schmidt PCP - General 03/26/02 08/26/22 Karla Mcguire, [facility] 07/23/22 08/26/22 Amirah Upton integration assistantRoving Hand 08/28/22 Gravel Screener Relationship Specialty Start Date End Date Amirah Upton RN [facility] 08/28/22 Gravel Screener Relationship Specialty Start Date End Date SpadaAmirah integration assistantRoving Hand 08/28/22 Gravel Screener Relationship Specialty Start Date End Date Spada, Amirah integration assistantRoving Hand 08/28/22 Gravel Screener Relationship Specialty Start Date End Date Spada, Amirah, integration assistantRoving Hand 08/28/22 Gravel Screener Relationship Specialty Start Date End Date Spada, Amirah, integration assistantRoving Hand 08/28/22 Gravel Screener Relationship Specialty Start Date End Date Spada, Amirah, integration assistantRoving Hand 08/28/22 Gravel Screener Relationship Specialty Start Date End Date Spada, Amirah, integration assistantRoving Hand 08/28/22 Gravel Screener Relationship Specialty Start Date End Date Spada, Amirah, integration assistantRoving Hand 08/28/22 Gravel Screener Relationship Specialty Start Date End Date Spada, Amirah, integration assistantRoving Hand 08/28/22 Gravel Screener Relationship Specialty Start Date End Date Spada, Amirah, integration assistantRoving Hand 08/28/22 Gravel Screener Relationship Specialty Start Date End Date SpadaAmirah integration assistantRoving Hand 08/28/22 Gravel Screener Relationship Specialty Start Date End Date Spada, Amirah integration assistantRoving Hand 08/28/22 Gravel Screener Relationship Specialty Start Date End Date Spada, Amirah integration assistantRoving Hand 08/28/22 Team Status: Active Member Role Status Dates Dr. Renée Corbett MD Family Provider Active No Primary Care Physician Primary Care Provider Active Team Status: Inactive Member Role Status Dates Dr. Miranda Randall MD Emergency Provider Active No Primary Care Physician Primary Care Provider Active Goals (unrecognized section and content) Goals may be documented in a n alternate sectionGoals may be documented in an alternate section No data available for this sectionGoals may be documented in an alternate section No data available for this section No data available for this section No data available for this sectionGoals may be documented in an alternate sectionGoals may be documented in an alternate section No data available for this sectionGoals may be documented in an alternate section No data available for this section Care Team (unrecognized sect ion and content) Care Team Personnel Name: RENÉE CORBETT MD Member Role: Primary Care Physician Address: Address: [address] [place], [place] [id number] Name: Letha Gaspar RN Position: AO RN Member Role: RN Name: Jyotsna Estrada Coder Position: HIM: Coders Member Role: HIM: Coders Name: LAURENT PANCHAL MD Position: ED Physician Member Role: ED Physician Address: Address: [address] [place] [address].[address] [place], [place] [address] Name: MEHUL GRIMM MD Position: Resident Member Role: Resident Address: Address: [address] [id number]- Care Team Personnel Name: RENÉE CORBETT MD Member Role: Primary Care Physician Address: Address: [address] [place] [id number] Name: TJ Pinon Position: OB RN Member Role: RN Name: Jyotsna Graham RN Position: OB RN Member Role: RN FOR RECORDS PERTAINING TO PATIENTS WHO ARE OR HAVE BEEN ENROLLED IN A CHEMICAL DEPENDENCY/SUBSTANCEABUSE PROGRAM, SOME INFORMATION MAY BE OMITTED. This clinical summary was aggregated from multiple sources. Caution should be exercised in using it in the provision of clinical care. This summary normalizes information from multiple sources, and as a consequence, information in this document may materially change the coding, format and clinical context of patient data. In addition, data may be omitted in some cases. CLINICAL DECISIONS SHOULD BE BASED ON THE PRIMARY CLINICAL RECORDS. [employer] provides no warranty or guarantee of the accuracy or completeness of information in this document.
[2024-11-27 14:00] VITALS: BP 119/77; PULSE 79; RESP 24; O2SAT 100
[2024-11-27 15:00] VITALS: BP 121/76; PULSE 77; RESP 18; O2SAT 99
--- NOTE | 2024-11-27 15:06 | ED.RN ---
this rn goes in to start an IV per MD orders. pt states how long is this going to take? i want to go home to my bed. this rn states that the average ED visit is 4-6 hours and we cannot be sure of an accurate time. pt looks at her phone and states it's already 3 o'clock? i just don't want to be here until night time. am i going to get in trouble since i signed a paper to be here? this rn educates patient that she will not get in trouble and we cannot make her do any testing or treatment that she does not want. pt states understanding and still verbalizes wanting to go home. this rn informs dr rivas. dr rivas to print dc instructions/
[2024-11-27 15:29] VITALS: BP 121/76; PULSE 77; RESP 18; TEMP 37; O2SAT 99
== END 2024-11-27 15:31 | disposition home or self-care (01) ==
PROVIDERS: Emergency Provider Emergency Medicine; PCP Pediatrics; Referring Provider Emergency Medicine; Visit Provider Emergency Medicine
DX: R42 Dizziness and giddiness (principal); G40.909 Epilepsy, unspecified, not intractable, without status epilepticus; Z79.899 Other long term (current) drug therapy
CPT/HCPCS: 99283